=== PATIENT | female | born 1970 | race Caucasian/White ===

== ENCOUNTER 2023-07-08 12:48 | Outpatient (OUT) | payer OTHER, BC, SELFPAY ==
--- NOTE | 2023-07-08 12:50 | VEIN_ITS ---
Patient Name: LOREN WING MR#: [id number] : 1970 Exam Date: 07/08/2023 Ordering Doctor: DR MARTIN HERNANDEZ D.P.M. RADIOLOGY REPORT PROCEDURE: [facility] - OFFICE VISIT INITIAL COMPARISON: None. PROGRESS NOTES: 52-year-old female who presents with a 2 year history of lower extremity pain swelling and varicose veins culminated in an episode of a nonhealing ulceration determined to be a venous stasis ulcer by the wound clinic along the distal right lateral lower leg and ankle. The patient has had this wound since March of 2023 with very slow healing. The area continues to see. The patient has describes the pain as aching burning and itching rating the pain as a 7 on a scale of 1-10. The patient's right leg symptoms are significantly worse than the left. 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 The patient's symptoms are only partially relieved by rest, leg elevation over the counter oral analgesics. The patient has previously had treatments with intravenous laser ablation of both great saphenous veins The patient denies any signs and symptoms to suggest arterial ischemia. The patient describes a family history significant for heart disease in a maternal grandmother and paternal grandmother. . Occasional social alcohol use. The patient has never smoked. No illicit drug use. Past medical history is significant for a ventral hernia, hypertension, anxiety disorder. Past surgical history significant for left total knee replacement, , cholecystectomy. No history of deep venous thrombus or pulmonary embolus. See separate history and physical for medication list. Nursing notes were reviewed. The patient has worn compression stockings for several years. After history and physical exam I discussed at length the pathophysiology of venous hypertension and possible treatments, therapies and strategies available. We discussed at length the importance of elevating the lower extremities above the level of the heart, increased physical activity and compression stocking use. We discussed surgical alternatives including ligation and stripping and phlebectomy. We discussed intravenous laser ablation, micro foam chemical ablation and injection sclerotherapy lymph. Risks benefits and alternatives were discussed. The patient's questions were answered Ultrasound venous reflux study performed the same day was discussed at length with the patient. The report demonstrates moderate right small saphenous and anterior accessory saphenous vein venous insufficiency. Moderate to large bilateral incompetent perforating veins 1 associated with the active venous stasis ulceration. Bilateral incompetent varicose veins, right greater than left. PHYSICAL EXAM: The right leg demonstrates moderate scattered varicose reticular and spider veins. There is a 15 x 10 cm area of active ulceration partially scabbed with a small amount of seeping along the right distal lateral lower leg immediately over a large incompetent perforating vein. Mild subcutaneous edema. Mild hemosiderin staining. The left leg demonstrates mild scattered varicose reticular and spider veins. No subcutaneous edema. No hemosiderin staining. No active ulceration. Both thighs, legs and feet were symmetrically warm to the touch. Good posterior tibial and dorsalis pedis pulses were present bilaterally. VEIN/VC Facility NEW Comprehensive IMPRESSION: 1. Right small saphenous and anterior accessory saphenous vein venous insufficiency . Bilateral incompetent perforating veins 2. Moderate right and mild left lower extremity incompetent varicose veins 3. Mild right lower extremity subcutaneous edema 4. Active venous stasis ulceration right lateral leg 5. CEAP: C6, Ep, Asp, Pr PLAN: 1. Endovenous laser ablation right small saphenous vein followed by bilateral perforating veins followed by right anterior accessory saphenous vein 2. Bilateral micro foam chemical ablation of incompetent varicose veins 3. Injection sclerotherapy of reticular and spider veins 4. Long-term use of bilateral thigh-high 20-30 mm compression stockings 5. Elevated legs and increased physical activity for symptomatic relief Nurse notes, history and physical were reviewed and confirmed, see attached forms. The nurse was present throughout the physical exam and consultation Dictated by: Wilver Cano MD on 07/08/2023 at 14:50 Approved by: Wilver Cano MD on 07/08/2023 at 14:55
--- NOTE | 2023-07-08 12:50 | VEIN_ITS ---
Patient Name: LOREN WING MR#: [id number] : 1970 Exam Date: 07/08/2023 Ordering Doctor: DR MARTIN HERNANDEZ D.P.M. RADIOLOGY REPORT PROCEDURE: VC EXT VENOUS REFLUX DEENA LMTD COMPARISON: None. INDICATIONS: I83.813 Bilateral painful varicose veins TECHNIQUE: Duplex imaging of the lower extremity to assess the deep and superficial venous system for the presence of deep or superficial venous incompetence and to document the location and severity of disease. The study includes evaluation of the great saphenous vein (GSV), anterior accessory saphenous vein (AASV) and small saphenous vein (SSV). Patient scanned in reverse Trendelenburg and standing. FINDINGS: RIGHT LOWER EXTREMITY: Saphenofemoral Junction Reflux: Yes 10.9mm 1.0 sec GSV: Diam (mm) Reflux/ Time (sec) Proximal Thigh N/A Mid Thigh N/A Distal Thigh N/A Prox Calf N/A Mid Calf N/A Saphenopopliteal Junction Reflux: 5.8mm Yes 0.6 SSV: Proximal Calf 5.5 Yes 1.1 Mid Calf 4.1 Yes 0.5 AASV: Proximal Thigh 5.7 Yes 1.9 Mid Thigh 2.7 Yes 0.6 Distal Thigh Thrombi: No acute or chronic thrombus visualized Compressibility: Normal Flow: Normal Preforator: Dist/med calf 4.6mm with 0.6s reflux. Tech Note: Incompetent SSV. Patent varicose vein prox/med calf 4.9mm with 0.7s reflux. Patent varicose vein dist/med thigh 7.0mm with 1.0s reflux. Patent varicose vein mid/med thigh 6.1mm with 0.9s reflux. LEFT LOWER EXTREMITY: Saphenofemoral Junction Reflux: Yes 11.1 mm 1.5 sec GSV: Diam (mm) Reflux/Time (sec) Proximal Thigh 6.9 Yes 0.6 Mid Thigh N/A Distal Thigh N/A Prox Calf N/A Mid Calf N/A Saphenopopliteal Junction Relux: 3.3 mm SSV: Proximal Calf 2.4 No Mid Calf 2.2 Yes 0.4 AASV: Not present Thrombi: No acute or chronic thrombus visualized Compressibility: Normal Flow: Normal Proofer Apprentice: Dist/med calf 4.5mm with 0.7s reflux. Tech Note: Patent varicose vein prox/med calf 3.9mm with 2.0s reflux. CONCLUSION: 1. Moderate venous insufficiency right small saphenous and right anterior accessory saphenous veins 2. Bilateral incompetent perforating veins 3. Bilateral incompetent varicose veins Dictated by: Wilver Cano MD on 07/08/2023 at 14:16 Approved by: Wilver Cano MD on 07/08/2023 at 14:18
== END 2023-07-08 12:49 | disposition home or self-care (01) ==
PROVIDERS: PCP Podiatrist Foot & Ankle Surgery; Visit Provider Podiatrist Foot & Ankle Surgery
DX: I83.10 Varicose veins of unspecified lower extremity with inflammation (principal)
CPT/HCPCS: 93970; G0463

== ENCOUNTER 2023-08-04 07:23 | Outpatient (OUT) | payer OTHER, BC, SELFPAY ==
[2023-08-04] MEDS: 0.9 % SODIUM CHLORIDE 500 ML, LIDOCAINE HCL 20 ML, SODIUM BICARBONATE 10 MEQ INJ (07:34)
[2023-08-04] MEDS: LIDOCAINE HCL 1% 100 MG/10 ML MDV INJ (07:35)
--- NOTE | 2023-08-04 07:36 | VEIN_ITS ---
[address] [address] Patient Name: LOREN WING MRN: [id number] date: 1970 Sex: F Assigned Patient Location: Current Patient Location: Accession/Order Number: [id number] Exam Date: 08/04/2023 07:40 Report Date: 08/04/2023 11:55 At the request of: PREMA HAWKINS Procedure: VC Endovenous Ablation 1VeinRT EXAMINATION: VC Endovenous Ablation 1Vein, right small saphenous vein HISTORY: Pain due to varicose veins of bilateral legs I83.813 COMPARISON: No relevant comparison available. TECHNIQUE: The risks and benefits of the procedure had been previously discussed, and were rediscussed at length. Informed written consent was obtained. Cara Hernadez and Matteo Holloway assisted. Time out procedure was performed. The right lower extremity was prepared and draped in the usual sterile fashion. Duplex ultrasound probe was draped in a sterile cover, sterile transmission gel was used. Venous mapping was performed with the areas of dilation and large tributaries marked. The total length was 22 cm from the entry 7 cm above the lateral malleolus to where the vein begins to dive into the popliteal junction. The diameter of the small saphenous vein ranged from 5-6 mm. A 30 gauge needle and 1% buffered lidocaine was used to anesthetize the entry site. A 4 mm incision was made with a scalpel and the saphenous vein was entered percutaneously under direct ultrasound guidance with a micropuncture set, a single stick was successful in gaining access. A micro-guide wire was inserted and the needle removed. A micro-set including a dilator was inserted over the microwire and the needle and dilator were removed. A 0.018 guide wire was inserted through the micro-set and threaded through the saphenous vein. The dilator was removed and an introducer sheath was inserted over the wire until. The dilator and wire were removed and the 600 micron fiber was introduced and placed and positioned so that it extended beyond the sheath. Final position of the fiber was determined by ultrasound guidance and duplex imaging. Tumescent anesthetic was delivered by ultrasound guidance. 100 cc of fluid was delivered along the entire course of the saphenous vein. The solution consisted of 1000 cc of normal saline with 40 mL of 1% lidocaine and 20 mL of sodium bicarbonate. A final positioning check was made. The energy source was turned on by means of the foot pedal and the fiber and sheath were withdrawn. The total number of Joules delivered was 1049. The laser was active for 131 seconds under continuous pulse, average laser use of 8 J. Laser start time 8:02 AM 08/04/23 . Laser stop time 8:10 AM 08/04/23 . A duplex ultrasound revealed compressibility and flow at the saphenofemoral junction immediately after the procedure. Hemostasis at the access site was achieved. The skin incision of the saphenous vein was closed with a 4 x 4. A compression stocking was applied. Postop instructions were given. A follow up appointment was recommended and scheduled. The patient tolerated the procedure well and was discharged in good condition . VEIN/VC Endovenous Ablation 1VeinRT IMPRESSION: Technically successful endovenous laser ablation of the right small saphenous vein Electronically authenticated by: PREMA HAWKINS Date: 08/04/2023 11:55
--- OUTSIDE RECORDS SUMMARY | 2023-08-04 07:37 | XMS_ITS | CCD ---
Author Name Unknown Address [address] [place] [address] Organization [facility] Care Team Providers Care Support Coordinator Name Role Phone Pb BAUMAN Primary Care Physician Unavailable Primary Care Provider Unavailabl e Unavailable Primary Care Provider Unavailabl e MARKO CORDOVA Attending Unavailable MARKO CORDOVA Referring Unavailable PEREIRAAUGUSTUS DALLAS Attending Unavailable AUGUSTUS PEREIRA Referring Unavailable Pb BAUMAN Primary Care Physician DIANA CEJA Primary Care Physician [phone] Keith CHUNG Attending Unavailable ANA CHÁVEZ Attending Unavailable BAY CEJAC DIANA Grady Attending Unav ailable ANA CHÁVEZ Attending Unavailable Rita Dover FJohn Admitting Unavailable Stanislaw, Rita FJohn Attending Unavailable Stanislaw, Mohamed FJohn Referring Unavailable SALAMIsiaher Admitting Unavailable VERONICAAMKeith Attending Unavailable VERONICAAMIsiaher Referring Unavailable Sri PUGA Admitting Unavailable Sri PUGA Attending Unavailable Sri PUGA Referring Unavailable Everardo Perera Attending Unavailable REFERRAL, SELF Referring Unavailable Everardo Davis Attending Unavailable Stanislaw, Mohamed FJohn Admitting Unavailable Stanislaw, Mohamed FJohn Attending Unavailable NONE, XXXX Referring Unavailable Sri PUGA Attending Unavailable Kimmy Scott X Attending Unavailable Morena Rousseau Attending Unavailable Morena Rousseau Attending Unavailable Allergies Allergy Classification Reported Allergen(s) Allergy Type Date of Onset Reaction(s) Facility (17 sources) seasonal ,dust, mold 1 Allergy to substance hayfever [facility] Comment on above: hayfever (1 source) Seasonal allergy Allergy to substance 3 Itching [facility] (1 source) seasonal ,dust, mold; Translations: [seasonal ,dust, mold] Propensity to adverse reactions (disorder) [facility] (1 source) No Known Medication Allergies; Translations: [No Known Medication Allergies] Propensity to adverse reactions (disorder) [facility] NEGATED: Highlighted row has been ruled out! (1 source) Drug allergy [facility] NEGATED: Highlighted row has been ruled out! (1 source) Drug allergy [facility] NEGATED: Highlighted row has been ruled out! (1 source) Drug allergy [facility] NEGATED: Highlighted row has been ruled out! (1 source) Drug allergy [facility] NEGATED: Highlighted row has been ruled out! (1 source) Drug allergy [facility] NEGATED: Highlighted row has been ruled out! (1 source) Drug allergy [facility] NEGATED: Highlighted row has been ruled out! (1 source) Drug allergy [facility] NEGATED: Highlighted row has been ruled out! (1 source) Drug allergy [facility] NEGATED: Highlighted row has been ruled out! (1 source) Drug allergy [facility] NEGATED: Highlighted row has been ruled out! (1 source) Drug allergy [facility] NEGATED: Highlighted row has been ruled out! (1 source) Drug allergy [facility] Medications Current Medications Medication Drug Class(es) Dates Sig (Normalized) Sig (Original) albuterol HFA 90 mcg/inh MDI (17 sources) Start: 06-27-2023 take 2 puff(s) by inhalation four times daily albuterol HFA 90 mcg/inh MDI 2 puff(s), Inhalation, QID, 1 EA, Refill(s) 2, [facility], [facility], cm, 06/27/23 10:33:00 EST, Height/Length Dosing, 111, kg, 06/27/23 10:33:00 EST, Weight Dosing Start Date: 06/27/23 Status: Ordered Start: 05-25-2020 take 2 puff(s) by in halation four times daily albuterol HFA 90 mcg/inh MDI 2 puff(s), Inhalation, QID, 1 EA, Refill(s) 2, [facility], 167, cm, 05/25/20 16:49:00 EST, Height/Length Dosing, 112.5, kg, 05/25/20 16:49:00 EST, Weight Dosing Start Date: 05/25/20 Status: Ordered azithromycin 250 mg oral tablet (1 source) Macrolide Antimicrobial Start: 06-27-2023 End: 07-02-2023 Zithromax Z-Mars 250 mg oral tablet 250 mg = 1 tab(s), Oral, As Directed, as directed on package labeling, X 5 day(s), # 6 tab(s), Refills(s) 0, Pharmacy: [facility], 167, cm, 06/27/23 10:33:00 EST, Height/Length Dosing, 111, kg, 06/27/23 10:33:00 EST, Weight Dosing Start Date: 06/27/23 Stop Date: 07/02/23 Status: Ordered brompheniramine maleate 0.4 mg/ml / dextromethorphan hydrobromide 2 mg/ml / pseudoephedrine hydrochloride 6 mg/ml oral solution (2 sources) alpha-Adrenergic Agonist, Uncompetitive Z-vatoxs-I-aspart ate Receptor Antagonist, Sigma-1 Agonist Start: 06-27-2023 take 2.5 mL by mouth every six hours Bromfed DM oral syrup 2.5 mL, Oral, q6hr for cold symptoms, 120 mL, Refill(s) 1, [facility], 167, cm, 06/27/23 10:33:00 EST, Height/Length Dosing, 111, kg, 06/27/23 10:33:00 EST, Weight Dosing Start Date: 06/27/23 Status: Ordered hydrALAZINE hydrochloride 10 mg oral tablet (1 source) Arteriolar Vasodilator Start: 07-04-2023 hydrALAZINE 10 mg Tab See Instructions, 1 tab PO PRN BP >140/90, # 30 tab(s), Refills(s) 2, Pharmacy: [facility], 167, cm, 06/27/23 10:33:00 EST, Height/Length Dosing, 111, kg, 06/27/23 10:33:00 EST, Weight Dosing Start Date: 07/04/23 Status: Ordered hydroCHLOROthiazide 12.5 mg oral capsule (4 sources) Thiazide Diuretic Start: 06-27-2023 take 1 capsule by mouth once daily hydrochlorothiazide 12.5 mg Cap 12.5 mg = 1 cap(s), Oral, Daily, # 30 cap(s), Refills(s) 6, Pharmacy: [facility], 167, cm, 06/27/23 10:33:00 EST, Height/Length Dosing, 111, kg, 06/27/23 10:33:00 EST, Weight Dosing Start Date: 06/27/23 Status: Ordered Start: 09-28-2020 hydroCHLOROthi azide (HYDRODIURIL, ESIDRIX) 12.5 mg tablet Take 12.5 mg by mouth. 0 09/28/2020 Active Comment on above: Take 12.5 mg by mout h. methylPREDNISolone 4 mg oral tablet (1 source) Corticosteroid Start: End: Medrol 4 mg Tab = 1 packet(s), Oral, As Directed, as directed on package labeling, X 6 day(s), # 21 tab(s), Refills(s) 0, Pharmacy: [facility], 167, cm, 06/27/23 10:33:00 EST, Height/Length Dosing, 111, kg, 06/27/23 10:33:00 EST, Weight Dosing Start Date: 06/27/23 Stop Date: 07/03/23 Status: Ordered omeprazole 40 mg delayed release oral capsule (12 sources) Proton Pump Inhibitor Start: take 1 capsule by mouth once daily omeprazole 40 mg Cap-DR 40 mg = 1 cap(s), Oral, Daily, # 30 cap(s), Refills(s) 1, Pharmacy: [facility], 167, cm, 02/05/23 12:12:00 EDT, Height/Length Dosing, 106.5, kg, 02/05/23 12:12:00 EDT, Weight Dosing Start Date: 02/05/23 Status: Ordered Start: 01-20-2023 take 1 capsule by mo uth once daily omeprazole 20 mg Cap-DR 20 mg = 1 cap(s), Oral, Daily, # 90 cap(s), Refills(s) 3, Pharmacy: [facility], 167, cm, 12/18/22 9:30:00 EDT, Height/Length Dosing, 106.5, kg, 12/18/22 9:30:00 EDT, Weight Dosing Start Date: 01/20/23 Status: Ordered Start: 10-25-2022 take 1 capsule by [facility] once daily omeprazole 20 mg Cap-DR 20 mg = 1 cap(s), Oral, Daily, # 30 cap(s), Refills(s) 0, Pharmacy: [facility], 167, cm, 10/25/22 14:36:00 EDT, Height/Length Dosing, 110.1, kg, 10/25/22 14:36:00 EDT, Weight Dosing Start Date: 10/25/22 Status: Ordered polyethylene glycol 3350 [id number] mg / potassium chloride 1480 mg / sodium bicarbonate 5720 mg / sodium chloride 03243 mg powder for oral solution (1 source) Osmotic Laxative Start: 12-18-2022 NuLYTELY Ford oral powder for reconstitution See Instructions, 1 EA, Refill(s) 0, See physician instructions prior to procedure., [facility], 167, cm, 12/18/22 9:30:00 EDT, Height/Length Dosing, 106.5, kg, 12/18/22 9:30:00 EDT, Weight Dosing Start Date: 12/18/22 Status: Ordered pseudoephedrine hydrochloride 30 mg oral tablet (1 source) alpha-Adrenerg ic Agonist Start: 11-07-2021 End: 12-05-2021 take 1 tablet by mouth twice daily pseudoephedrine 30 mg Tab 30 mg = 1 tab(s), Oral, BID, X 14 day(s), # 28 tab(s), Refills(s) 1, Pharmacy: [facility], 167, cm, 11/06/21 13:58:00 EDT, Height/Length Dosing, 91.5, kg, 11/06/21 13:58:00 EDT, Weight Dosing Start Date: 11/07/21 Stop Date: 12/05/21 Status: Ordered Sensor 60 ACTUAT fluticasone propionate 0.232 MG/ACTUAT Dry Powder Inhaler [Armonair] (9 sources) Start: 06-27-2023 take 232 ug by mouth every twelve hours fluticasone propionate 232 mcg/inh inhalation powder 232 mcg, Inhalation, q12hr, Swallowed rather than inhaled rinse mouth and throat after use, # 1 EA, Refills(s) 5, Pharmacy: [facility], 167, cm, 06/27/23 10:33:00 EST, Height/Length Dosing, 111, kg, 06/27/23 10:33:00 EST, Weight Dosing Start Date: 06/27/23 Status: Ordered Start: 10-25-2022 take 232 ug by mouth every twelve hours fluticasone propionate 232 mcg/inh inhalation powder 232 mcg, Inhalation, q12hr, Swallowed rather than inhaled rinse mouth and throat after use, # 1 EA, Refills(s) 5, Pharmacy: [facility], 167, cm, 10/25/22 14:36:00 EDT, Height/Length Dosing, 110.1, kg, 10/25/22 14:36:00 EDT, Weight Dosing Start Date: 10/25/22 Status: Ordered sertraline 50 mg oral tablet (19 sources) Serotonin Reuptake Inhibitor Start: 01-20-2023 Zoloft 50 mg Tab 75 mg = 1.5 tab(s), Oral, Daily, # 135 tab(s), Refills(s) 3, Pharmacy: [facility], 167, cm, 06/27/23 10:33:00 EST, Height/Length Dosing, 111, kg, 06/27/23 10:33:00 EST, Weight Dosing Start Date: 06/27/23 Status: Ordered Start: 01-09-2022 Zoloft 50 mg T ab 75 mg = 1.5 tab(s), Oral, Daily, # 135 tab(s), Refills(s) 2, Pharmacy: [facility], 167, cm, 11/06/21 13:58:00 EDT, Height/Length Dosing, 91.5, kg, 11/06/21 13:58:00 EDT, Weight Dosing Start Date: 01/09/22 Status: Ordered Start: 12-28-2020 Zoloft 50 mg T ab 75 mg = 1.5 tab(s), Oral, Daily, # 135 tab(s), Refills(s) 2, Pharmacy: [facility], 167.6, cm, 12/22/20 12:51:00 EDT, Height/Length Dosing, 95, kg, 12/22/20 12:51:00 EDT, Weight Dosing Start Date: 12/28/20 Status: Ordered Start: 10-13-2020 take 1 tablet by carmelo th once daily sertraline (ZOLOFT) 50 mg tablet TAKE 1 & 1 2 (ONE & ONE HALF) TABLETS BY MOUTH ONCE DAILY 0 10/13/2020 Active Comment on above: TAKE 1 & 1 2 (ONE & ONE HALF) TABLETS BY MOUTH ONCE DAILY Completed/Discontinued Medications Medication Drug Class(es) Dates Sig (Normalized) Sig (Original) aspirin 81 mg delayed release oral tablet (2 sources) Platelet Aggregation Inhibitor, Nonsteroidal Anti-inflammatory Drug Start: 12-21-2020 take 1 tablet by mouth twice daily aspirin, enteric coated (ECOTRIN LOW STRENGTH) 81 mg EC tablet Take 1 tablet by mouth twice daily. 60 tablet 0 12/21/2020 Active Comment on above: Take 1 tablet by carmelo twice daily. betamethasone 3 mg/ml / betamethasone acetate 3 mg/ml injectable suspension (1 source) Corticosteroid Start: 12-25-2022 End: 12-25-2022 betamethasone acetate-betamethas one sodium phosphate 12 mg injection (CELESTONE) Start: 12-25-2022 End: 12-25-2022 betamethasone acetate-betame thasone sodium phosphate 12 mg injection (CELESTONE) 60 actuat formoterol fumarate 0.005 mg/actuat / mometasone furoate 0.1 mg/actuat metered dose inhaler (2 sources) Corticosteroid, beta2-Adrenergic Agonist Start: 11-04-2016 take 2 puff(s) by inhalation twice daily mometasone-formoterol (DULERA) 100-5 mcg/actuation inhaler Inhale 2 Puffs as instructed twice daily. 0 11/04/2016 Active Comment on above: Inhale 2 Puffs as in structed twice daily. hydroCHLOROthiazide 25 mg / lisinopril 20 mg oral tablet (2 sources) Thiazide Diuretic, Angiotensin Converting Enzyme Inhibitor take 1 tablet by mouth once daily lisinopril-hydrochloro thiazide (PRINZIDE, ZESTORETIC) 20-25 mg per tablet Take 1 tablet by mouth once daily. 0 Active Comment on above: Take 1 tablet by carmelo th once daily. 10 ml lidocaine hydrochloride 10 mg/ml injection (1 source) Antiarrhythmic, Amide Local Anesthetic Start: 12-25-2022 End: 12-25-2022 lidocaine (PF) 10 mg/mL (1 %) 5 mL injection (XYLOCAINE) Start: 12-25-2022 End: 12-25-2022 lidocaine (PF) 10 mg/mL (1 % ) 5 mL injection (XYLOCAINE) lisinopril 10 mg oral tablet (20 sources) Angiotensin Converting Enzyme Inhibitor Start: 10-30-2020 End: 06-26-2023 take 1 tablet by mouth once lisinopril 10 mg Tab 10 mg = 1 tab(s), Tab, Oral, Once, Stop date 06/26/23 8:18:02 PM EST, STAT, Start date 06/26/23 7:41:00 PM EST, 06/26/23 19:41:00 EST Start Date: 06/26/23 Stop Date: 06/26/23 Status: Completed Comment on above: Take 10 mg by mouth once daily. pantoprazole 20 mg delayed release oral tablet (2 sources) Proton Pump Inhibitor Start: 12-21-2020 take 1 tablet by mouth once daily pantoprazole DR (PROTONIX) 20 mg tablet Take 1 tablet by mouth once daily for 14 days. 14 tablet 0 12/21/2020 Active Comment on above: Take 1 tablet by carmelo th once daily for 14 days. Problems Active Problems Problem Classification Problem Date Documented Da te Episodic/Chronic Abdominal hernia (17 sources) Ventral incisional hernia 09-17-2013 Episodic Anxiety disorders (17 sources) Anxiety 08-04-2015 Chronic Asthma (2 sources) Asthma; Translations: [Unspecified asthma, uncomplicated] 12-20-2020 Chronic Chronic obstructive pulmonary disease and bronchiectasis (3 sources) Bronchitis; Translations: [Bronchitis, not specified as acute or chronic] Onset: 06-27-2023 Episodic Chronic ulcer of skin (1 source) Chronic ulcer of skin of lower leg; Translations: [Non-pressure chronic ulcer of unspecified part of unspecified lower leg with unspecified severity] Onset: 05-16-2022 Chronic Conduction disorders (3 sources) Left bundle branch block; Translations: [Left bundle-branch block, unspecified] Onset: 06-27-2023 Chronic Deficiency and other anemia (18 sources) Anemia; Translations: [Anemia, unspecified] Onset: 11-06-2021 Episodic Deficiency and other anemia (17 sources) Normocytic anemia 11-06-2021 Episodic Diverticulosis and diverticulitis (7 sources) Diverticula of intestine; Translations: [Diverticulosis of intestine, part unspecified, without perforation or abscess without bleeding] Onset: 03-05-2023 Chronic Esophageal disorders (8 sources) Obstruction of esophagus; Translations: [Esophageal obstruction] Onset: 02-05-2023 Chronic Essential hypertension (20 sources) Hypertensive disorder; Translations: [Essential (primary) hypertension] Onset: 11-30-2020 08-04-2015 Chronic Gastroduodenal ulcer (except hemorrhage) (7 sources) Gastric ulcer; Translations: [Gastric ulcer, unspecified as acute or chronic, without hemorrhage or perforation] Onset: 03-05-2023 Chronic Genitourinary congenital anomalies (2 sources) Renal agenesis; Translations: [Renal agenesis, unilateral] 12-05-2020 Chronic Headache; including migraine (1 source) Headache; Translations: [Headache, unspecified] Onset: 06-26-2023 Episodic Hemorrhoids (7 sources) Hemorrhoids; Translations: [Unspecified hemorrhoids] Onset: 03-05-2023 Episodic Joint disorders and dislocations; trauma-related (2 sources) Patellofemoral syndrome of left knee; Translations: [Patellofemoral disorders, left knee] Onset: 02-09-2016 02-09-2016 Chronic Joint disorders and dislocations; trauma-related (17 sources) Tear of medial meniscus of knee 08-04-2015 Episodic Comment on above: left Lymphadenitis (17 sources) Tender lymph node 11-06-2021 Episodic Osteoarthritis (20 sources) Osteoarthritis; Translations: [Osteoarthritis of left knee joint] Onset: 02-09-2016 08-04-2015 Chronic Comment on above: left knee Other circulatory disease (1 source) Disorder of respiratory system; Translations: [Other specified symptoms and signs involving the circulatory and respiratory systems] Onset: 11-06-2021 Episodic Other circulatory disease (17 sources) Vascular insufficiency 05-13-2019 Episodic Other connective tissue disease (1 source) Artificial knee joint present; Translations: [Presence of left artificial knee joint] Onset: 11-06-2021 Chronic Other connective tissue disease (4 sources) History of revision of left total knee arthroplasty; Translations: [Presence of left artificial knee joint] Onset: 12-20-2020 Chronic Other connective tissue disease (2 sources) History of total knee arthroplasty; Translations: [Presence of left artificial knee joint] Onset: 11-18-2016 11-18-2016 Chronic Other connective tissue disease (1 source) Presence of left artificial knee joint; Translations: [S/P revision of total knee, left] Onset: 12-20-2020 Chronic Other diseases of veins and lymphatics (2 sources) Varicose eczema 06-27-2023 Episodic Other gastrointestinal disorders (10 sources) Heartburn; Translations: [Heartburn] Onset: 12-18-2022 Episodic Other gastrointestinal disorders (9 sources) Dysphagia; Translations: [Dysphagia, unspecified] Onset: 12-18-2022 Episodic Other hematologic conditions (17 sources) Microcytosis 11-06-2021 Episodic Other lower respiratory disease (1 source) Dyspnea; Translations: [Shortness of breath] Onset: 06-27-2023 Episodic Other nutritional; endocrine; and metabolic disorders (1 source) Obese class I; Translations: [Body mass index (BMI) 32.0-32.9, adult] Onset: 11-06-2021 Chronic Other nutritional; endocrine; and metabolic disorders (2 sources) Obesity; Translations: [Obesity, unspecified] 11-18-2016 Chronic Other nutritional; endocrine; and metabolic disorders (4 sources) Obese class II; Translations: [Obesity, unspecified] Onset: 12-20-2020 12-20-2020 Chronic Other screening for suspected conditions (not mental disorders or infectious disease) (3 sources) Screening for malignant neoplasm of colon done; Translations: [Encounter for screening for malignant neoplasm of colon] Onset: 12-18-2022 Episodic Other upper respiratory disease (18 sources) Allergic rhinitis; Translations: [Allergic rhinitis, unspecified] Onset: 11-06-2021 Chronic Pneumonia (except that caused by tuberculosis or sexually transmitted disease) (17 sources) Bacterial pneumonia 09-17-2013 Episodic Residual codes; unclassified (1 source) Pain, unspecified; Translations: [Pain] Onset: 12-25-2022 Episodic Unclassified (17 sources) Non-smoker 10-11-2019 Unclassified (20 sources) Patient encounter status 05-25-2020 Varicose veins of lower extremity (3 sources) Varicose ulcer of lower extremity; Translations: [Varicose veins of unspecified lower extremity with ulcer of unspecified site] Onset: 05-16-2022 Episodic Past or Other Problems Problem Classification Problem Date Documented Date Episodic/Chronic Other connective tissue disease (2 sources) Right sided abdominal pain; Translations: [Myalgia, other site] Onset: 04-30-2012 04-30-2012 Episodic Residual codes; unclassified (1 source) History of hernia repair; Translations: [Other specified postprocedural states] Onset: 01-27-2012 01-27-2012 Episodic Unclassified (17 sources) None (qualifier value) 10-03-2010 Results Test Name Value Interpretation Reference Range Facil ity ED Note-Physicianon 06-27-20 ED Note-Physician Basic Information Time Seen: Julio C COOK, Justin Williamson 06/26/2023 18:35 Chief Complaint pt c\o headache and high blood pressure x1 day History of Present Illness A 52-year-old female reports to the emergency department with a chief complaint of a headache, and high blood pressure. Reports been going on for at least a day now. States that she is on lisinopril for blood pressure. Denies any blood thinners. Reports it was gradual headache, but has been very bad headache. States that she does have a history of migraines as well. Has not take anything for her pain. Denies any nausea or vomiting. Denies any visual changes. Denies any chest pain or shortness of breath. Review of Systems A 10 point review of systems is negative except as noted above. Medical and Surgical History: Reviewed and noted Social history: Lives at home Family History: Reviewed. Tobacco: Denies Physical Exam Vitals & Measurements T: 36.8 ?C(Oral) HR: 98(Monitored) RR: 18 BP: 166/104 SpO2: 97% HT: 167 cm WT: 110 kg BMI: 39.44 General: The patient appears well and in no apparent distress. Patient is resting comfortably on bed. Afebrile Skin: Warm, dry, no pallor noted. Head: Normocephalic, atraumatic Neck: No JVD Eye: PERRLA, EOMI ENT: Moist mucus membranes Cardiovascular: Regular rate normal peripheral perfusion. Radial pulse +2 bilaterally Respiratory: No respiratory distress no accessory muscle use no obvious audible wheezing Chest Wall: no deformity Musculoskeletal: normal ROM, no deformity, no swelling GI: No obvious distention soft nontender nondistended no guarding rebounding or rigidity Neurological: A&O moves all extremities equal strength and symmetry. No focal neurological defects. Psychiatric: Cooperative and appropriate Medical Decision Making MEDICAL DECISION MAKING Number and Complexity of Problems Differential Diagnosis: [] [facility] Data External documents reviewed: [] My EKG interpretation: Reviewed My CT interpretation: Reviewed My X-ray interpretation: Reviewed My Ultrasound interpretation: [] Decision rules/scores evaluated: [] Discussed with: [] Treatment and Disposition ED Course: 52-year-old female reports emerged department chief complaint of headache as well as high blood pressure reading. States that she did have a headache, is very bad. Reports worst of her life. Denies any other symptoms. Denies any visual changes, chest pain or shortness of breath. Physical exam the patient is otherwise benign. No focal neurological defects. Due to her concerns, as well as her complaints, I did do a cardiac workup with a head CT. Her initial pressure here in the emergency department was 201/135. Lab reviewed and noted. No acute changes seen. CT of the head was negative. Discussed with the patient. Patient was given Tylenol as well as a migraine cocktail here in the emergency department, she did greatly improve her symptoms. I also did double the dose of her lisinopril, she is to take 20 mg a day now. Patient was given 10 mg here. Patient symptoms greatly improved. Discussed follow-up with PCP. Follow-up with your primary care provider in 3 to 5 days. If symptoms worsen, do not improve, or new symptoms arise please report back to emergency department for further evaluation. The patient was understanding and agreeable to plan moving forward. Shared decision making: [] Code status: [] Assessment/Plan Head ache (R51.9: Headache, unspecified) Hypertension (I10: Essential (primary) hypertension) Orders: acetaminophen, 650 mg = 2 tab(s), Tab, Oral, Once, Stop date 06/26/23 18:55:00 EST, STAT, Start date 06/26/23 18:55:00 EST, 06/26/23 18:55:00 EST diphenhydrAMINE, 50 mg = 2 cap(s), Cap, Oral, Once, Stop date 06/26/23 19:45:00 EST, STAT, Start date 06/26/23 19:45:00 EST, 06/26/23 19:45:00 EST ketorolac, 60 mg = 2 mL, Injection, IntraMuscular, Once, Stop date 06/26/23 19:45:00 EST, STAT, Start date 06/26/23 19:45:00 EST, 06/26/23 19:45:00 EST lisinopril, 10 mg = 1 tab(s), Tab, Oral, Once, Stop date 06/26/23 19:41:00 EST, STAT, Start date 06/26/23 19:41:00 EST, 06/26/23 19:41:00 EST metoclopramide, 10 mg = 2 tab(s), Tab, Oral, Once, Stop date 06/26/23 19:45:00 EST, STAT, Start date 06/26/23 19:45:00 EST, 06/26/23 19:45:00 EST Automated Diff Basic Metabolic Panel CBC w/ Auto Diff CT Head or Brain w/o Contrast eGFR Extra SST Tube PT & PTT Troponin 0 Hr. XR Chest Single View Medications Administered Given diphenhydrAMINE 25 mg Cap, 50 mg, Oral ketorolac 60 mg/2 mL Injection, 60 mg, IntraMuscular lisinopril 10 mg Tab, 10 mg, Oral Reglan 5 mg Tab, 10 mg, Oral Tylenol 325 mg Tab, 650 mg, Oral Disposition Plan Patient Discharge Condition Stable Discharge Disposition To home Discharge Prescription List Prescriptions No active prescription medications Follow-up With When Contact Information Pb MERNA In 3 days 06/29/[address] [facility] (more content not included)... Normal [facility] Comment on above: Result Comment: Elec tronically Signed By: Julio C COOK, Justin Williamson\.miki\Date and Time Signed: 06/26/23 21:21 EST\.br\Electronically Co-Signed By: Everardo Perera DO\.miki\Date and Time Co-Signed: 06/27/23 08:01 EST Family Medicine Office/Clini c Noteon 06-27-2023 Family Medicine Office/Clinic Note HPI Staff Pt presents for BP issues and coughing/wheezing previous pt of Dr. Bauman IZABELA 11/22/22 1 month f/u dysphagia *Sees GI CT of head and chest XR 06/27/23 _Respiratory C/O: Covid Home Test: no Sore Throat- no Duration: _ started 3 days ago Body aches: yes Chest congestion: yes a little but not a lot just wheezy Chills: no Cough: no Ear complaints: no Eye itching/watering: no Fever: no Headache: no Nasal congestion: no Nasal discharge: no Poor appetite: no Reduced activity: yes Sinus pain/pressure: no Sneezing: no Sputum production: no Wheezing: yes Ill contacts: no Remedies tried: _ _ _ albuterol this morning didn't seem to help much ER followup: Hospital: [facility] Visit date: 06/27/23 Symptoms the patient presented with: high bp- went to wound clinic yesterday and BP was high encouraged pt to go to [facility], at urgent Care they took BP and sent pt to the ER Current concerns: Patient is here for follow up on hypertension. How often are you checking your blood pressure? Doesnt check BP at home What are your average readings? N/A, Not checking at home Do you have any of the following symptoms? Chest Pain? no Palpitations? no VALLES/SOB? yes - sick today Headache? yes Peripheral Edema? no Light Headedness? no Yearly BMP: _ BUN: 12 mg/dL (06/26/23 19:00:00) Calcium Lvl: 8.6 mg/dL Low (06/26/23 19:00:00) Chloride: 109 mmol/L (06/26/23 19:00:00) CO2: 26 mmol/L (06/26/23 19:00:00) Creatinine: 0.9 mg/dL (06/26/23 19:00:00) eGFR: >60 (06/26/23 19:00:00) Glucose Lvl: 104 mg/dL (06/26/23 19:00:00) Potassium Lvl: 3.9 mmol/L (06/26/23 19:00:00) Sodium Lvl: 142 mmol/L (06/26/23 19:00:00) Refill needed?: no History of Present Illness Jessenia is a 52 year old female who presents with exacerbation bronchitis. She has a nebulizer at home and has not yet used it. She used her rescue inhaler this morning which was mildly effective for SOB and wheeze. She has audible wheezes at rest. She was at the wound care clinic yesterday due to right lower leg ulcers and was found to have an elevated BP. She went to the ER - notes reviewed. She was only treated for a migraine at the ER - and treatment was effective, however, no changes were made to BP medications. It was noted on the EKG she has a left bundle branch block that she was unaware of. 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 She has had various treatments per vascular, and she is scheduled to see someone in July. The right lower extremity swells after prolonged standing. Review of Systems PHQ Score Initial Depression Screen Score: 0 SCORE Physical Exam Vitals & Measurements T: 36.6 ?C(Temporal Artery) HR: 77(Peripheral) RR: 24 BP: 130/96 SpO2: 98% HT: 66 in HT: 167 cm WT: 111 kg WT: 244.2 lb BMI: 39.8 General: alert, no acute distress Skin: warm, dry ... right lower extremity: erythematous, open areas - superficial. Mild non pitting edema. No drainage noted. Head: no trauma, normocephalic Neck: Trachea midline, no adenopathy, no tenderness Eye: normal conjunctiva, sclera clear ENMT: TM's clear, oral mucosa moist, no pharyngeal erythema or exudate Cardiovascular: regular rate and rhythm, normal peripheral perfusion Respiratory: Lungs expiratory wheezes, respirations labored Chest wall: no deformity. Gastrointestinal: soft, non distended, no tenderness, no guarding. Back: No tenderness, Normal ROM, Normal alignment. Extremities: no deformity, no trauma Neurological: oriented x 4, LOC appropriate for age, CN II-XII intact, motor strength equal & normal bilaterally, sensation equal & normal bilaterally, speech normal Psychiatric: cooperative, affect appropriate for age, normal judgement, normal psychiatric thoughts. Assessment/Plan 1. SOB (shortness of breath) (R06.02: Shortness of breath) Use nebulizer as prescribed Refill provided on inhalers Go to ER for sats < 89% or with severe SOB Instructed to obtain spo2 monitor Consider referral to pulm/PFT's Ordered: azithromycin, 250 mg = 1 tab(s), Oral, As Directed, as directed on package labeling, X 5 day(s), # 6 tab(s), Refills(s) 0, Pharmacy: [facility], 167, cm, 06/27/23 10:33:00 EST, Height/Length Dosing, 111, kg, 06/27/23 10:33:00 EST, Weight Dosing brompheniramine/dext romethorphan/PSE, 2.5 mL, Oral, q6hr for cold symptoms, 120 mL, Refill(s) 1, [facility], 167, cm, 06/27/23 10:33:00 EST, Height/Length Dosing, 111, kg, 06/27/23 10:33:00 EST, Weight Dosing hydrochlorothiazide, 12.5 mg = 1 cap(s), Oral, Daily, # 30 cap(s), Refills(s) 6, Pharmacy: [facility], 167, cm, 06/27/23 10:33:00 EST, Height/Length Dosing, 111, kg, 06/27/23 10:33:00 EST, Weight Dosing methylPREDNISolone, = 1 packet(s), Oral, As Directed, as directed on package labeling, X 6 day(s), # 21 tab(s), Refills(s) 0, Pharmacy: [facility] 1985, 167, cm, 06/27/23 10:33:00 EST, (more content not included)... [facility] Comment on above: Result Comment: Elec tronically Signed By: DIANA MOYER.br\Date and Time Signed: 06/27/23 12:02 EST Insurance Correspondenceon 1 08-28-2022 Insurance Correspondence [id number] 0#1.00TIFF [facility] Nursing Note - Woundon 06-27 Nursing Note - Wound [id number] 9#2.00TIFF [facility] Patient Educationon 06-27-20 Patient Education Cardiovascular Left Bundle Branch Block Left bundle branch block (LBBB) is a problem with the way that electrical impulses pass through the heart (electrical conduction abnormality). The heart depends on an electrical pulse to beat normally. The electrical signal for a heartbeat starts in the upper chambers of the heart (atria) and then travels to the two lower chambers (left and rightventricles). An LBBB is a partial or complete block of the pathway that carries the signal to the left ventricle. If you have LBBB, the left side of your heart does not beat normally. LBBB may be a warning sign of heart disease. What are the causes? This condition may be caused by: ? Heart disease. ? Disease of the arteries in the heart (arteriosclerosis). ? Stiffening or weakening of heart muscle (cardiomyopathy). ? Infection of heart muscle (myocarditis). ? High blood pressure. In some cases, the cause may not be known. What increases the risk? The following factors may make you more likely to develop this condition: ? Being male. ? Being 50 years of age or older. ? Having heart disease. ? Having had a heart attack or heart surgery. What are the signs or symptoms? This condition may not cause any symptoms. If you do have symptoms, they may include: ? Feeling dizzy or light-headed. ? Fainting. How is this diagnosed? This condition may be diagnosed based on an electrocardiogram (ECG). It is often diagnosed when an ECG is done as part of a routine physical or to help find the cause of fainting spells. You may also have imaging tests to find out more about your condition. These may include: ? Chest X-rays. ? Echocardiogram. How is this treated? If you do not have symptoms or any other type of heart disease, you may not need treatment for this condition. However, you may need to see your health care provider more often because LBBB can be a warning sign of future heart problems. You may get treatment for other heart problems or high blood pressure. If LBBB causes symptoms or other heart problems, you may need to have an electrical device (pacemaker) implanted under the skin of your chest. A pacemaker sends electrical signals to your heart to keep it beating normally. Follow these instructions at home: Lifestyle ? Follow instructions from your health care provider about eating or drinking restrictions. ? Follow a heart-healthy diet and maintain a healthy weight. Work with a dietitian to create an eating plan that is best for you. ? Do not use any products that contain nicotine or tobacco, such as cigarettes, e-cigarettes, and chewing tobacco. If you need help quitting, ask your health care provider. Activity ? Get regular exercise as told by your health care provider. ? Return to your normal activities as told by your health care provider. Ask your health care provider what activities are safe for you. General instructions ? Take xtvd-yao-getrzkn and prescription medicines only as told by your health care provider. ? Keep all follow-up visits as told by your health care provider. This is important. Contact a health care provider if: ? You feel light-headed. ? You faint. Get help right away if: ? You have chest pain. ? You have trouble breathing. These symptoms may represent a serious problem that is an emergency. Do not wait to see if the symptoms will go away. Get medical help right away. Call your local emergency services (911 in the [place] Do not drive yourself to the hospital. Summary ? For the heart to beat normally, an electrical signal must travel to the lower left chamber of the heart. Left bundle branch block (LBBB) is a partial or complete block of the pathway that carries that signal. ? This condition may not cause any symptoms. In some cases, a person may feel dizzy or light-headed or may faint. ? Treatment may not be needed for LBBB if you do not have symptoms or any other type of heart disease. ? You may need to see your health care provider more often because LBBB can be a warning sign of future heart problems. This information is not intended to replace advice given to you by your health care provider. Make sure you discuss any questions you have with your health care provider. Document Revised: 10/11/2020 Document Reviewed: 12/21/2019 [employer] Patient Education ? 2022 [employer] ENT Cough, Adult Coughing is a reflex that clears your throat and your airways (respiratory system). Coughing helps to heal and protect your lungs. It is normal to cough occasionally, but a cough that happens with other symptoms or lasts a long time may be a sign of a condition that needs treatment. An acute cough may only last 2?3 weeks, while a chronic cough may last 8 or more weeks. Coughing is commonly caused by: ? Infection of the respiratory systemby viruses or bacteria. ? Breathing in substances that irritate your lungs. ? Allergies. (more content not included)... Normal [facility] Physician Orderon 06-27-2023 Physician Order [id number] 4#1.00TIFF Normal [facility] Physician Referralon 023 Physician Referral [id number] #1.00TIFF Normal [facility] Progress Note - Woundon 06-07 Progress Note - Wound [id number] 2#1.00TIFF Normal [facility] Auto DiffOrdered By: SYSTEM SYSTEM on 06-26-2023 Basophils/100 WBC (Bld) 0.9 % Normal 0.0-2.0 [facility] Comment on above: Order Comment: Order Added by Discern Expert. Performed By: #### 1 [id number], 3729769, 7393999, 0252896, 42451841, 56702018 ####[facility] [address] [place] [address] Basophils/Leukocytes Auto (Bld) [Pure # fraction] 0.0 E9/L Normal 0.0-0.2 [facility] Comment on above: Order Comment: Order Added by Discern Expert. Performed By: #### 1 8583016, 9910244, 8507151, 2681160, 42549942, 29419127 ####[facility] [address] [place] [address] Eosinophils/100 WBC (Bld) 2.7 % Normal 0.0-8.0 [facility] Comment on above: Order Comment: Order Added by Discern Expert. Performed By: #### 1 4371587, 8057726, 5079424, 1379395, 93662346, 79145242 ####[facility] [address] [address] Eosinophils/Leukocyt es Auto (Bld) [Pure # fraction] 0.1 E9/L Normal 0.0-0.5 [facility] Comment on above: Order Comment: Order Added by Discern Expert. Performed By: #### 1 9624852, 2047904, 2972390, 9137828, 08566630, 22872232 ####[address] [address] Lymphocytes/100 WBC (Bld) 20.0 % Normal 14.0-50.0 [facility] Comment on above: Order Comment: Order Added by Discern Expert. Performed By: #### 1 8629403, 1585624, 3740862, 0099211, 80857185, 01400038 ####[address] [address] Lymphocytes/Leukocyt es Auto (Bld) [Pure # fraction] 0.9 E9/L Low 1.0-4.0 [facility] Comment on above: Order Comment: Order Added by Discern Expert. Performed By: #### 1 4438458, 3956122, 9474510, 3780862, 60445675, 51273861 ####[address] [address] Monocytes/100 WBC (Bld) 7.4 % Normal 4.0-14.0 [facility] Comment on above: Order Comment: Order Added by Discern Expert. Performed By: #### 1 4454066, 6009637, 1825056, 9915536, 33286214, 50703980 ####[address] [address] Monocytes/Leukocytes Auto (Bld) [Pure # fraction] 0.3 E9/L Normal 0.2-1.0 [facility] Comment on above: Order Comment: Order Added by Discern Expert. Performed By: #### 1 0568928, 1619014, 1567218, 2157909, 00506272, 35917341 ####[address] [address] Neutrophils/100 WBC (Bld) 69.0 % Normal 36.0-75.0 [facility] Comment on above: Order Comment: Order Added by Discern Expert. Performed By: #### 1 4722157, 9940287, 8659509, 4505767, 87994205, 88014688 ####[facility] [address] [place] [address] Neutrophils/Leukocyt es Auto (Bld) [Pure # fraction] 3.2 E9/L Normal 2.0-7.5 [facility] Comment on above: Order Comment: Order Added by Discern Expert. Performed By: #### 1 8897558, 8182675, 0381699, 9967020, 33222797, 20227324 ####[facility] [address] [address] BMPOrdered By: SYSTEM SYSTEM on 06-26-2023 Anion gap [Moles/Vol] 11 mmol/L Normal 6-16 [facility] Comment on above: Performed By: #### 1 0890083, 8155797, 7294907, 0739429, 18161849, 96278631 ####[facility] [address] [address] Calcium [Mass/Vol] 8.6 mg/dL Low 8.9-11.1 [facility] Comment on above: Performed By: #### 1 4738552, 6703326, 7145531, 2307400, 70041543, 96174508 ####[facility] [address] [place] [address] Chloride [Moles/Vol] 109 mmol/L Normal 101-111 [facility] Comment on above: Performed By: #### 1 1399931, 2974269, 8620888, 9586951, 69819601, 47387790 ####[facility] [address] [place] [address] CO2 [Moles/Vol] 26 mmol/L Normal 21-31 [facility] Comment on above: Performed By: #### 1 9370054, 2508761, 7564477, 5588395, 12753668, 64882529 ####[facility] [address] [place] [address] Creatinine [Mass/Vol] 0.9 mg/dL Normal 0.5-1.3 [facility] Comment on above: Performed By: #### 1 3548468, 7011995, 5575907, 7916943, 50870864, 90855052 ####[facility] [address] [place] [address] Glucose [Mass/Vol] 104 mg/dL Normal 55-199 [facility] Comment on above: Performed By: #### 1 3374954, 7159403, 8761221, 6867179, 25664200, 17837736 ####[address] [place] [address] Potassium [Moles/Vol] 3.9 mmol/L Normal 3.5-5.3 [facility] Comment on above: Performed By: #### 1 0871549, 8582172, 0984477, 0838166, 37535563, 73589104 ####[facility] [address] [place] [address] Sodium [Moles/Vol] 142 mmol/L Normal 135-145 [facility] Comment on above: Performed By: #### 1 5355128, 8248002, 1204763, 3332976, 79261448, 00463303 ####[facility] [address] [place] [address] Urea nitrogen [Mass/Vol] 12 mg/dL Normal 5-21 [facility] Comment on above: Performed By: #### 1 1085073, 0057288, 7620661, 9409247, 35497874, 80665555 ####[facility] [address] [place] [address] BMPon 06-26-2023 BUN/Creat Ratio 13 No Units Normal 10-20 [facility] Comment on above: Performed By: #### 1 3447554, 7159717, 0574127, 9589054, 86969376, 35466148 ####[address] [place] [address] CBC w/ Auto DiffOrdered By: Rossy Summers on 06-26-2023 Erythrocyte distribution width (RBC) [Ratio] 16.1 % High 10.9-14.2 [facility] Comment on above: Performed By: #### 1 0290748, 2687205, 8992844, 9622170, 93591661, 36488419 ####[facility] [address] [address] Hematocrit (Bld) [Volume fraction] 35.9 % Normal 34.0-46.0 [facility] Comment on above: Performed By: #### 1 0680894, 1270264, 9813871, 8731329, 40083618, 31225099 ####[facility] [address] [address] Hemoglobin (Bld) [Mass/Vol] 12.0 g/dL Normal 12.0-16.0 [facility] Comment on above: Performed By: #### 1 8356685, 5340263, 3011673, 9124020, 25359691, 98123055 ####[facility] [address] [address] MCH (RBC) [Entitic mass] 27.2 pg Normal 27.0-34.0 [facility] Comment on above: Performed By: #### 1 6125458, 2855977, 0375466, 6055181, 24063771, 68532674 ####[facility] [address] [address] MCHC (RBC) [Mass/Vol] 33.6 g/dL Normal 31.4-36.0 [facility] Comment on above: Performed By: #### 1 2039458, 4768096, 4332934, 2300979, 23678634, 76901512 ####[facility] [address] [address] MCV (RBC) [Entitic vol] 81.0 fL Normal 80.0-100.0 [facility] Comment on above: Performed By: #### 1 8186690, 5960795, 2162567, 0760723, 55648280, 87372631 ####[facility] [address] [place] [address] Platelet mean volume (Bld) [Entitic vol] 7.9 fL Normal 6.4-10.8 [facility] Comment on above: Performed By: #### 1 5328912, 7071699, 8441143, 1803003, 85144018, 30507550 ####[facility] [address] [place] [address] Platelets (Bld) [#/Vol] 138.0 E9/L Low 150.0-500.0 [facility] Comment on above: Performed By: #### 1 0076972, 9280465, 9364252, 4379285, 06818965, 62684900 ####[facility] [address] RBC (Bld) [#/Vol] 4.4 E12/L Normal 4.3-5.9 [facility] Comment on above: Performed By: #### 1 5776712, 9591794, 1207758, 0060269, 81436764, 11791301 ####[facility] [address] [address] WBC corrected for nucl RBC Auto (Bld) [#/Vol] 4.6 E9/L Normal 4.0-11.0 [facility] Comment on above: Performed By: #### 1 7434645, 5879108, 1792850, 4066348, 55069845, 53820318 ####[facility] [address] [address] CHEMISTRYOrdered By: SYSTEM SYSTEM on 06-26-2023 eGFR mL/min/1.73 m2 Normal >=59mL/min/1.73 m2 Re misol Chem Urea nitrogen/Creatinine [Mass ratio] 13 mg/mg Normal 10 - 20 [facility] COAGULATIONOrdered By: Franko Saldana on 06-26-2023 aPTT Coag (PPP) [Time] 31.8 s Normal 25.1 - 36.5 second(s) [facility] Auto [facility]ag Comment on above: Interpretive Data: P bryson 15 days - 4 weeks 1 - 5 months 6 - 11 months 1 - 5 years 6 - 10 years 11 - 17 years PTT Mean: 35.4 (27.6-45.6) Mean: 33.5 (24.8-40.7) Mean: 32.4 (25.1-40.7) Mean: 31.6 (24.0-39.2) Mean: 31.6 (26.9-38.7) Mean: 31.0 (24.6-38.4) Pediatric Reference ranges were obtained from a study by louis Fitzgerald prepared from 1437 samples obtained at 7 different centers using the same coagulation reagent and instrumentation as [facility]. Currently there are no coagulation studies available worldwide for children to 14 days, and no normal ranges. Heparin therapeutic range (represented by Anti-Factor Xa activity of 0.2 - 0.4 U/mL) corresponds to PTT of 56.6 - 109.0 sec. PT Coag (PPP) [Time] 10.7 s Normal 9.4 - 1 2.5 second(s) [facility] Comment on above: Interpretive Data: 1 5 days - 4 weeks 1 - 5 months 6 -11 months 1-5 years 6-10 years 11 -17 years Mean: 11.2 (9.5-12.6) Mean: 11.0 (9.7-12.8) Mean: 11.0 (9.8-13.0) Mean: 11.3 (9.9-13.4) Mean: 11.7 (10.0-14.6) Mean: 11.8 (10.0 - 14.1) Pediatric Reference ranges were obtained from a study by louis Fitzgerald prepared from 1437 samples obtained at 7 different centers using the same coagulation reagent and instrumentation as [facility]. Currently there are no coagulation studies available worldwide for children to 14 days, and no normal ranges. CT Head or Brain w/o Contras ton 06-26-2023 CT Head or Brain w/o Contrast Exam Date/Time: 06/26/2023 19:16 EST Reason for Exam: Headache, new or worsening;Other (please specify) Report IMPRESSION: There are no acute intracranial changes. EXAM: CT Head or Brain w/o Contrast DATE: 06/26/2023 7:07 PM CLINICAL HISTORY: AMS Headache, new or worsening TECHNIQUE: Multiple images axial images were obtained without contrast administration. 3-D sagittal and coronal reconstructions were performed. All CT scans at this facility use dose modulation, iterative reconstruction, and/or weight based dosing when appropriate to reduce radiation dose to as low as reasonably achievable. COMPARISON: FINDINGS: There is no evidence of acute hemorrhage, mass effect or edema. There are no extra-axial collections or space-occupying lesions. There is no evidence of acute ischemia, loss of prajapati-white matter differentiation The ventricles are sulci are within normal limits. The posterior fossa is unremarkable, The orbits demonstrate no intra or extraconal lesions. The globes are intact. The visualized portions of paranasal sinuses are unremarkable. The calvarium is unremarkable. Ordering Provider: Justin Bunch FINAL REPORT Dictated: 06/26/2023 7:25 pm Cesar Ortiz MD, V. Signed (Electronic Signature): 06/26/2023 7:25 pm Signed by: Cesar Ortiz MD, V. Transcribed by: ANDRAE Technologist: ROSALINA [facility] Consent for Procedure/Surger yon 06-26-2023 Consent for Procedure/Surgery [id number] 1#1.00TIFF [facility] Consent for Treatmenton 06-07 Consent for Treatment [id number] #1.00TIFF [facility] Consent for Treatment [id number] #1.00TIFF [facility] Consent to Photographon 06-07 Consent to Photograph [id number] 6#1.00TIFF [facility] Correspondence - Woundon Correspondence - Wound [id number] 3#1.00TIFF Normal [facility] Correspondence - Wound [id number] 1#1.00TIFF Normal [facility] Discharge Instructionson Discharge Instructions [id number] 9#1.00TIFF Normal [facility] ED Clinical Summaryon 2022 ED Clinical Summary [place] [id number] ED Clinical Summary Person Information Name: MECCAJESSENIA[place] Age: 52 Years : 1970 Sex: Female Language: [place] PCP: Pb BAUMAN DO Marital Status: Visit Id: Visit Reason: Hypertension; Headache; HIGH BLOOD PRESSURE - SENT BY [facility] CARE Speciality: Acuity: 3 Enc Type: Emergency Med Service: Emergency Arrival: 06/26/2023 18:31:10 Discharge: 06/26/2023 20:53:19 LOS: 000 02:22 Checkin: 06/26/2023 18:31:10 Checkout: 06/26/2023 20:53:19 Dispo Type: Home (Routine DC) EVENTS: Event Name Event Status Request Date/Time Start Date/Time Complete Date/Time Arrive Complete 06/26/2023 18:31:10 06/26/2023 18:31:10 06/26/2023 18:31:10 Document Home Meds Request 06/26/2023 18:31:10 Triage Complete 06/26/2023 18:31:10 06/26/2023 18:38:31 06/26/2023 18:38:31 Bed Assign Complete 06/26/2023 18:34:15 06/26/2023 18:34:15 06/26/2023 18:34:15 Dr Exam Complete 06/26/2023 18:34:15 06/26/2023 18:35:43 06/26/2023 18:35:43 RN Exam Complete 06/26/2023 18:34:15 06/26/2023 18:43:38 06/26/2023 18:43:38 Registration Complete 06/26/2023 18:35:43 06/26/2023 18:37:57 06/26/2023 18:43:11 Dr Exam Complete 06/26/2023 18:36:49 06/26/2023 18:36:49 06/26/2023 18:36:49 EKG Complete 06/26/2023 18:37:45 06/26/2023 18:48:36 Reg Complete Request 06/26/2023 18:43:11 Reg Bed Request Complete 06/26/2023 18:43:11 06/26/2023 18:43:11 06/26/2023 18:43:11 Pending Labs Request 06/26/2023 18:55:49 Lab Complete 06/26/2023 18:55:49 06/26/2023 19:29:27 X-Ray Complete 06/26/2023 18:55:49 06/26/2023 19:07:40 06/26/2023 19:23:01 CT Complete 06/26/2023 18:55:49 06/26/2023 19:07:26 06/26/2023 19:16:37 Meds Admin Complete 06/26/2023 18:55:49 06/26/2023 19:02:27 Pending Labs Complete 06/26/2023 19:06:21 06/26/2023 19:06:21 06/26/2023 19:29:27 Lab Complete 06/26/2023 19:06:21 06/26/2023 19:06:21 06/26/2023 19:29:27 Pending Labs Complete 06/26/2023 19:10:13 06/26/2023 19:10:13 06/26/2023 19:10:19 Lab Complete 06/26/2023 19:10:13 06/26/2023 19:10:13 06/26/2023 19:10:19 Wet Read Request 06/26/2023 19:23:01 Meds Admin Complete 06/26/2023 19:41:24 06/26/2023 20:18:02 Meds Admin Complete 06/26/2023 19:46:12 06/26/2023 20:02:20 Pending Labs Complete 06/26/2023 20:08:42 06/26/2023 20:08:42 06/26/2023 20:08:42 Discharge Complete 06/26/2023 20:47:16 06/26/2023 20:53:28 06/26/2023 20:53:28 Transfer Complete 06/26/2023 20:53:28 06/26/2023 20:53:28 06/26/2023 20:53:28 ADDRESS: [id number] [facility] [id number] PHYS DOC NOTES: MEDICAL INFORMATION: Prescriptions Given: Medications to Continue with No Changes Other Medications albuterol (albuterol HFA 90 mcg/inh MDI) 2 Puffs Inhalation 4 times a day. Refills: 2. fluticasone (fluticasone propionate 232 mcg/inh inhalation powder) 232 Microgram Inhalation every 12 hours. Swallowed rather than inhaled rinse mouth and throat after use. Refills: 5. lisinopril (lisinopril 10 mg Tab) 1 Tablets By Mouth every day. Refills: 1. omeprazole (omeprazole 20 mg Cap-DR) 1 Capsules By Mouth every day. Refills: 3. omeprazole (omeprazole 40 mg Cap-DR) 1 Capsules By Mouth every day. Refills: 1. sertraline (Zoloft 50 mg Tab) 1.5 Tablets By Mouth every day. Refills: 3. PATIENT EDUCATION INFORMATION: Instructions: Managing Your Hypertension; Migraine Headache Follow up: With: Address: When: Pb BAUMAN [address] [facility], [facility] [place] [phone] Business (1) In 3 days 06/29/2023 Comments: Follow-up with your primary care provider in 3 to 5 days. If symptoms worsen, do not improve, or new symptoms arise please report back to emergency department for further evaluation. Continue to monitor your blood pressure, and you may start 20 mg of lisinopril daily. DIAGNOSIS: Head ache; Hypertension Normal [facility] ED Patient Education Noteon 06-26-2023 ED Patient Education Note Cardiovascular Managing Your Hypertension Hypertension, also called high blood pressure, is when the force of the blood pressing against the hardin of the arteries is too strong. Arteries are blood vessels that carry blood from your heart throughout your body. Hypertension forces the heart to work harder to pump blood and may cause the arteries to become narrow or stiff. Understanding blood pressure readings A blood pressure reading includes a higher number over a lower number: ? The first, or top, number is called the systolic pressure. It is a measure of the pressure in your arteries as your heart beats. ? The second, or bottom number, is called the diastolic pressure. It is a measure of the pressure in your arteries as the heart relaxes. For most people, a normal blood pressure is below 120/80. Your personal target blood pressure may vary depending on your medical conditions, your age, and other factors. Blood pressure is classified into four stages. Based on your blood pressure reading, your health care provider may use the following stages to determine what type of treatment you need, if any. Systolic pressure and diastolic pressure are measured in a unit called millimeters of mercury (mmHg). Normal ? Systolic pressure: below 120. ? Diastolic pressure: below 80. Elevated ? Systolic pressure: 120?129. ? Diastolic pressure: below 80. Hypertension stage 1 ? Systolic pressure: 130?139. ? Diastolic pressure: 80?89. Hypertension stage 2 ? Systolic pressure: 140 or above. ? Diastolic pressure: 90 or above. How can this condition affect me? Managing your hypertension is very important. Over time, hypertension can damage the arteries and decrease blood flow to parts of the body, including the brain, heart, and kidneys. Having untreated or uncontrolled hypertension can lead to: ? A heart attack. ? A stroke. ? A weakened blood vessel (aneurysm). ? Heart failure. ? Kidney damage. ? Eye damage. ? Memory and concentration problems. ? Vascular dementia. What actions can I take to manage this condition? Hypertension can be managed by making lifestyle changes and possibly by taking medicines. Your health care provider will help you make a plan to bring your blood pressure within a normal range. You may be referred for counseling on a healthy diet and physical activity. Nutrition ? Eat a diet that is high in fiber and potassium, and low in salt (sodium), added sugar, and fat. An example eating plan is called the DASH diet. DASH stands for Dietary Approaches to Stop Hypertension. To eat this way: ? Eat plenty of fresh fruits and vegetables. Try to fill one-half of your plate at each meal with fruits and vegetables. ? Eat whole grains, such as whole-wheat pasta, brown rice, or whole-grain bread. Fill about one-fourth of your plate with whole grains. ? Eat low-fat dairy products. ? Avoid fatty cuts of meat, processed or cured meats, and poultry with skin. Fill about one-fourth of your plate with lean proteins such as fish, chicken without skin, beans, eggs, and tofu. ? Avoid pre-made and processed foods. These tend to be higher in sodium, added sugar, and fat. ? Reduce your daily sodium intake. Many people with hypertension should eat less than 1,500 mg of sodium a day. Lifestyle ? Work with your health care provider to maintain a healthy body weight or to lose weight. Ask what an ideal weight is for you. ? Get at least 30 minutes of exercise that causes your heart to beat faster (aerobic exercise) most days of the week. Activities may include walking, swimming, or biking. ? Include exercise to strengthen your muscles (resistance exercise), such as weight lifting, as part of your weekly exercise routine. Try to do these types of exercises for 30 minutes at least 3 days a week. ? Do not use any products that contain nicotine or tobacco. These products include cigarettes, chewing tobacco, and vaping devices, such as e-cigarettes. If you need help quitting, ask your health care provider. ? Control any long-term (chronic) conditions you have, such as high cholesterol or diabetes. ? Identify your sources of stress and find ways to manage stress. This may include meditation, deep breathing, or making time for fun activities. Alcohol use ? Do not drink alcohol if: ? Your health care provider tells you not to drink. ? You are , may be , or are planning to become . ? If you drink alcohol: ? Limit how much you have to: ? 0?1 drink a day for women. ? 0?2 drinks a day for men. ? Know how much alcohol is in your drink. In the [place] one drink equals one 12 oz bottle of beer (355 mL), one 5 oz glass of wine (148 mL), or one 1? oz glass of hard liquor (44 mL). Medicines Your health care provider may prescribe medicine if lifestyle changes are not enough to get your blood pressure under control and if: ? Your systolic blood pr (more content not included)... Normal [facility] ED Patient Summaryon 023 ED Patient Summary [address] [address] Patient Discharge Instructions Person Information Name: JESSENIA WING Age: 52 Years Arrival Date: 06/26/2023 18:31:10 Discharge Diagnosis: Head ache; Hypertension Primary Care Physician: Pb BAUMAN DO Provider Information Primary Provider: Everardo Perera DO Advanced Police Lieutenant:None The exam and treatment you received in the Emergency Department were for an urgent problem and are not intended as complete care. It is important that you follow up with a doctor, nurse practitioner, or physician?s teacher's assistant for ongoing care. If your symptoms become worse or you do not improve as expected and you are unable to reach your usual health care provider, you should return to the Emergency Department. We are available 24 hours a day. JESSENIA WING has been given the following list of patient education materials, prescriptions and follow-up instructions: Follow-up Instructions: With: Address: When: Pb BAUMAN [address] [facility], [facility] [place] [phone] Business (1) In 3 days 06/29/2023 Comments: Follow-up with your primary care provider in 3 to 5 days. If symptoms worsen, do not improve, or new symptoms arise please report back to emergency department for further evaluation. Continue to monitor your blood pressure, and you may start 20 mg of lisinopril daily. In the event that this physician does not participate in your insurance network, please consult with your insurance company to find a nearby participating provider. Patient Education Materials: Managing Your Hypertension; Migraine Headache A MESSAGE TO ALL PATIENTS REGARDING OPIOIDS PRESCRIPTION OPIOIDS: WHAT YOU NEED TO KNOW Prescription opioids can be used to help relieve exvloyvj-pp-kjskym pain and are often prescribed following a surgery or injury, or for certain health conditions. These medications can be an important part of the treatment but also come with serious risks. It is important to work with your healthcare provider to make sure you are getting the safest, most effective care. WHAT ARE THE RISKS AND SIDE EFFECTS OF OPIOID USE? Prescription opioids carry serious risks of addiction and overdose, especially with prolonged use. An opioid overdose, often marked by slowed breathing, can cause sudden . The use of prescription opioids can have a number of side effects as well, even when taken as directed: ? Tolerance?meaning you might need to take more of the medication for the same pain relief ? Physical dependence?meaning you have symptoms of withdrawal when a medication is stopped ? Increased sensitivity to pain ? Constipation ? Nausea, vomiting, and dry mouth ? Sleepiness and dizziness ? Confusion ? Depression ? Low levels of testosterone that can result in lower sex drive, energy, and strength ? Itching and sweating RISKS ARE GREATER WITH: ? History of drug misuse, substance use disorder, or overdose ? Mental health conditions (such as depression or anxiety) ? Sleep apnea ? Older age (65 years and older) ? Avoid alcohol while taking prescription opioids. Also, unless specifically advised by your health care provider, medications to avoid include: ? Benzodiazepines (such as Xanax or Valium) ? Muscle relaxants (such as Soma or Flexeril) ? Hypnotics (such as Ambien or Lunesta) ? Other prescription opioids KNOW YOUR OPTIONS Talk to your health care provider about ways to manage your pain that don?t involve prescription opioids. Some of these options may actually work better and have fewer risks and side effects. Options may include: ? Pain relievers such as acetaminophen, ibuprofen, and naproxen ? Some medication that are also used for depression or seizures ? Physical therapy and exercise ? Cognitive behavioral therapy, a psychological, goal-directed approach, in which patients learn how to modify physical, behavioral, and emotional triggers of pain and stress. IF YOU ARE PRESCRIBED OPIOIDS FOR PAIN: ? Never take opioids in greater amounts or more often than prescribed. ? Follow up with your primary health care provider. o Work together to create a plan on how to manage your pain. o Talk about ways to help manage your pain that don?t involve prescription opioids. o Talk about any and all concerns and side effects. ? Help prevent misuse and abuse o Never sell or share prescription opioids. o Never use another person?s prescription opioids. ? Store prescription opioids in a secure place and out of reach of others (this may include visitors, children, friends, and family). ? Safely dispose of unused prescription opioids: Find your community drug take-back program or your pharmacy mail-back program, or flush them down the toilet, following guidance from the Food and Drug Administration (more content not included)... Normal [facility] Multi-Wound Charton 06-26-20 Multi-Wound Chart [id number] 4#1.00TIFF Normal [facility] Nursing Assessment - Woundon 06-26-2023 Nursing Assessment - Wound [id number] 9#2.00TIFF Normal [facility] Nursing Assessment - Wound [id number] 8#1.00TIFF Normal [facility] PT & PTTon 06-26-2023 aPTT Coag (PPP) [Time] 31.8 second(s) Normal 25.1-36.5 [facility] Comment on above: Result Comment: Para meter 15 days - 4 weeks 1 - 5 months 6 - 11 months 1 - 5 years 6 - 10 years 11 - 17 years PTT Mean: 35.4 (27.6-45.6) Mean: 33.5 (24.8-40.7) Mean: 32.4 (25.1-40.7) Mean: 31.6 (24.0-39.2) Mean: 31.6 (26.9-38.7) Mean: 31.0 (24.6-38.4) Pediatric Reference ranges were obtained from a study by Dale Roque et al. prepared from 1437 samples obtained at 7 different centers using the same coagulation reagent and instrumentation as [facility]. Currently there are no coagulation studies available worldwide for children to 14 days, and no normal ranges. Heparin therapeutic range (represented by Anti-Factor Xa activity of 0.2 - 0.4 U/mL) corresponds to PTT of 56.6 - 109.0 sec. Performed By: #### 1 [id number] ####[facility] [address] [place] [address] PT Coag (PPP) [Time] 10.7 second(s) Normal 9.4-12.5 [facility] Comment on above: Result Comment: 15 d ays - 4 weeks 1 - 5 months 6 -11 months 1- 5 years 6-10 years 11 -17 years Mean: 11.2 (9.5-12.6) Mean: 11.0 (9.7-12.8) Mean: 11.0 (9.8-13.0) Mean: 11.3 (9.9-13.4) Mean: 11.7 (10.0-14.6) Mean: 11.8 (10.0 - 14.1) Pediatric Reference ranges were obtained from a study by christiano Fitzgerald al. prepared from 1437 samples obtained at 7 different centers using the same coagulation reagent and instrumentation as [facility]. Currently there are no coagulation studies available worldwide for children to 14 days, and no normal ranges. Performed By: #### 1 [id number] ####[facility] [address] [place] [address] PT & PTTOrdered By: Franko jenkins on 06-26-2023 INR Coag (PPP) [Relative time] 1.0 {INR} Invalid Interpretation Code [facility] Auto Coag Comment on above: Interpretive Data: I NR results are specifically intended to assess patients stabilized on long-term Anticoagulation therapy suggested INR s Less Intensive Anticoagulation 2.0 3.0 Conventional Range 3.0 4.5 Result Comment: INR results are specifically intended to assess patients stabilized on long-term Anticoagulation therapy suggested INR?s ?Less Intensive Anticoagulation? 2.0 ? 3.0 Conventional Range 3.0 ? 4.5 Performed By: #### 1 [id number], [id number], [id number], [id number], [id number] ####[facility] [address] [place] [address] Troponin 0 Hr.Ordered By: Naartjie SYSTEM on 06-26-2023 Troponin 2.50 pg/mL Low 10.10-27.10 [facility] Comment on above: Interpretive Data: T he 95% CI (Confidence Interval) PPV (Positive Predictive Value) for myocardial infarction in females is 38 pg/mL, in males 51 pg/mL. The results should be used in conjunction with clinical conditions of myocardial infarction. (Access High Sensitivity Troponin I Instructions For Use, [employer], February 2018) Result Comment: The 95% CI (Confidence Interval) PPV (Positive Predictive Value) for myocardial infarction in females is 38 pg/mL, in males 51 pg/mL. The results should be used in conjunction with clinical conditions of myocardial infarction. (4tiitoo High Sensitivity Troponin I Instructions For Use, [employer], February 2018) Performed By: #### 1 [id number], [id number], [id number], [id number], [id number] ####[facility] [address] [place] [address] XR Chest Single Viewon 06-26 XR Chest Single View Exam Date/Time: 06/26/2023 19:23 EST Reason for Exam: Chest pain Report IMPRESSION: There are no acute cardiopulmonary changes. CLINICAL HISTORY: Chest pain EXAMINATION: XR Chest Single View COMPARISON: FINDINGS: The cardiomediastinal silhouette is unremarkable. The lungs are free of infiltrates effusions or consolidations. There are no acute osseous changes. Ordering Provider: Justin Bunch FINAL REPORT Dictated: 06/26/2023 7:40 pm Cesar Ortiz MD, V. Signed (Electronic Signature): 06/26/2023 7:40 pm Signed by: Cesar Ortiz MD, V. Transcribed by: ANDRAE Technologist: NICK Technical Comments Radiation Dose: Ka,r in mGy = na DAP = na Normal [facility] eGFRon 06-26-2023 GFR/1.73 sq M.predicted among non-blacks MDRD (S/P/Bld) [Vol rate/Area] mL/min/{1.73_m2} Normal >=59 [facility] Comment on above: Order Comment: Order added by Discern Expert. Performed By: #### 1 [id number], [id number], [id number], [id number] ####[facility] [address] [place] [address] Reminderson 03-12-2023 Reminders - From: Morena Rousseau CNP To: Miya Tenorio; Sent: 03/05/2023 15:23:19 EDT Show up: 03/05/2023 15:24:00 EDT Subject: Ambulatory Reminder Reminder/Recall Colonoscopy in 2032. 02/05/2033 10 year colon recall Normal [facility] Gastroenterology Office/Clin ic Noteon 03-05-2023 Gastroenterology Office/Clinic Note Chief Complaint EGD and colonoscopy results. HPI Staff Patient is a 52 year old female here today to review results from EGD and colonoscopy. History of Present Illness Patient is a 52-year-old female who presents for follow-up from EGD/colonoscopy completed 02/05/[address] Chung. Patient was previously evaluated by Dr. Chung 12/2022 for further evaluation of dysphagia and heartburn. Note indicated patient's dysphagia was primarily with solids. Patient was ordered EGD with dilation and colonoscopy. EGD with dilation completed 02/05/2023 revealed distal esophageal Schatzki's ring?dilated, mild gastric erosions, normal duodenum, stomach biopsy revealed nonspecific chronic inflammation, negative for H. pylori. Patient was advised to take omeprazole 40 mg daily. Colonoscopy completed 02/05/2023 revealed diverticulosis, hemorrhoids?patient is due for repeat colonoscopy in 2032. During today's visit, patient reports her acid reflux is well-controlled with omeprazole 40mg daily. Denies having any further dysphagia in the last 3 weeks. Is having 1 formed BM daily. Takes motrin occasionally- 2 times a month. Denies black/bloody stools, nausea/vomiting, and denies having any GI complaints. Review of Systems ROS - Provider Constitutional: no fever, no chills. Skin: no Jaundice. ENMT: Denies dysphagia and heartburn. Respiratory: no shortness of breath. Cardiovascular: no chest pain. Gastrointestinal: no nausea, no vomiting, no diarrhea, no GI bleeding. Physical Exam Vitals & Measurements T: 36.4 ?C(Temporal Artery) HR: 73(Peripheral) BP: 140/96 HT: 66 in HT: 167 cm WT: 110.2 kg WT: 242.44 lb BMI: 39.51 General: Well developed, well nourished, in no acute distress Head: Normocephalic/atraum atic Lungs: Normal respiratory effort and clear to auscultation Cardio: Regular rate and rhythm, normal S1 and S2, no murmur, no rub Abdomen: Soft, non-distended, non-tender. Normoactive bowel sounds present in all 4 abdominal quadrants, bilaterally. Mental Status: Alert and oriented x3. Normal mood and affect Assessment/Plan BP elevated today at 149/116. BP rechecked personally and improved at 140/96- BP managed by patient's PCP. 1. Gastric erosions (K25.9: Gastric ulcer, unspecified as acute or chronic, without hemorrhage or perforation) EGD with dilation completed 02/05/2023 revealed distal esophageal Schatzki's ring?dilated, mild gastric erosions, normal duodenum, stomach biopsy revealed nonspecific chronic inflammation, negative for H. pylori. Continue omeprazole 40 mg daily. Avoid NSAIDs. 2. Schatzki's ring (K22.2: Esophageal obstruction) EGD with dilation completed 02/05/2023 revealed distal esophageal Schatzki's ring?dilated, mild gastric erosions, normal duodenum, stomach biopsy revealed nonspecific chronic inflammation, negative for H. pylori. Continue omeprazole 40 mg daily. Avoid NSAIDs. 3. Heartburn (R12: Heartburn) Controlled with omeprazole 40mg daily. EGD with dilation completed 02/05/2023 revealed distal esophageal Schatzki's ring?dilated, mild gastric erosions, normal duodenum, stomach biopsy revealed nonspecific chronic inflammation, negative for H. pylori. Continue omeprazole 40 mg daily. Avoid NSAIDs. 4. Diverticulosis (K57.90: Diverticulosis of intestine, part unspecified, without perforation or abscess without bleeding) Colonoscopy completed 02/05/2023 revealed diverticulosis, hemorrhoids?patient is due for repeat colonoscopy in 2032. Educated regarding fiber supplementation- metamucil 1 capsule daily- separate 2 hours from other medications. 5. Hemorrhoids (K64.9: Unspecified hemorrhoids) Colonoscopy completed 02/05/2023 revealed diverticulosis, hemorrhoids?patient is due for repeat colonoscopy in 2032. Educated regarding fiber supplementation- metamucil 1 capsule daily- separate 2 hours from other medications. Follow-up With When Contact Information Morena Rousseau CNP Within 3 months Additional Instructions: Patient Education Diverticulosis Peptic Ulcer Problem List/Past Medical History Ongoing Allergic rhinitis Anemia Breast cancer screening Colon cancer screening Diverticulosis Gastric erosions Heartburn Hemorrhoids History of left knee replacement Non-smoker Normocytic anemia Schatzki's ring Tenderness of lymph node Venous insufficiency Historical BACTERIAL PNEUMONIA, UNSPECIFIED Dysphagia Hypertension Microcytosis None Screening for cardiovascular condition Ventral hernia Procedure/Surgical History Colonoscopy (02/05/2023), EGD (esophagogastroduode noscopy) and 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 Medications albuterol HFA 90 mcg/inh MDI, 2 puff(s), Inhalation, QID, 2 refills fluticasone propionate (more content not included)... Normal [facility] Comment on above: Result Comment: Elec tronically Signed By: Soham DAVIS, Morena Trejo\.br\Date and Time Signed: 03/05/23 15:29 EDT Patient Educationon 03-05-20 Patient Education Gastroenterology Diverticulosis Diverticulosis is a condition that develops when small pouches (diverticula) form in the wall of the large intestine (colon). The colon is where water is absorbed and stool (feces) is formed. The pouches form when the inside layer of the colon pushes through weak spots in the outer layers of the colon. You may have a few pouches or many of them. The pouches usually do not cause problems unless they become inflamed or infected. When this happens, the condition is called diverticulitis. What are the causes? The cause of this condition is not known. What increases the risk? The following factors may make you more likely to develop this condition: ? Being older than age 60. Your risk for this condition increases with age. Diverticulosis is rare among people younger than age 30. By age 80, many people have it. ? Eating a low-fiber diet. ? Having frequent constipation. ? Being overweight. ? Not getting enough exercise. ? Smoking. ? Taking qlpx-ijx-mctyjju pain medicines, like aspirin and ibuprofen. ? Having a family history of diverticulosis. What are the signs or symptoms? In most people, there are no symptoms of this condition. If you do have symptoms, they may include: ? Bloating. ? Cramps in the abdomen. ? Constipation or diarrhea. ? Pain in the lower left side of the abdomen. How is this diagnosed? Because diverticulosis usually has no symptoms, it is most often diagnosed during an exam for other colon problems. The condition may be diagnosed by: ? Using a flexible scope to examine the colon (colonoscopy). ? Taking an X-ray of the colon after dye has been put into the colon (barium enema). ? Having a CT scan. How is this treated? You may not need treatment for this condition. Your health care provider may recommend treatment to prevent problems. You may need treatment if you have symptoms or if you previously had diverticulitis. Treatment may include: ? Eating a high-fiber diet. ? Taking a fiber supplement. ? Taking a live bacteria supplement (probiotic). ? Taking medicine to relax your colon. Follow these instructions at home: Medicines ? Take jtqy-ufg-igiahht and prescription medicines only as told by your health care provider. ? If told by your health care provider, take a fiber supplement or probiotic. Constipation prevention Your condition may cause constipation. To prevent or treat constipation, you may need to: ? Drink enough fluid to keep your urine pale yellow. ? Take xzay-sgr-nqgwmsp or prescription medicines. ? Eat foods that are high in fiber, such as beans, whole grains, and fresh fruits and vegetables. ? Limit foods that are high in fat and processed sugars, such as fried or sweet foods. General instructions ? Try not to strain when you have a bowel movement. ? Keep all follow-up visits as told by your health care provider. This is important. Contact a health care provider if you: ? Have pain in your abdomen. ? Have bloating. ? Have cramps. ? Have not had a bowel movement in 3 days. Get help right away if: ? Your pain gets worse. ? Your bloating becomes very bad. ? You have a fever or chills, and your symptoms suddenly get worse. ? You vomit. ? You have bowel movements that are bloody or black. ? You have bleeding from your rectum. Summary ? Diverticulosis is a condition that develops when small pouches (diverticula) form in the wall of the large intestine (colon). ? You may have a few pouches or many of them. ? This condition is most often diagnosed during an exam for other colon problems. ? Treatment may include increasing the fiber in your diet, taking supplements, or taking medicines. This information is not intended to replace advice given to you by your health care provider. Make sure you discuss any questions you have with your health care provider. Document Revised: 01/20/2020 Document Reviewed: 01/20/2020 [employer] Patient Education ? 2022 [place]. Peptic Ulcer A peptic ulcer is a sore in the lining of the stomach (gastric ulcer) or the first part of the small intestine (duodenal ulcer). The ulcer causes a gradual wearing away (erosion) of the deeper tissue. What are the causes? Normally, the lining of the stomach and the small intestine protects them from the acid that digests food. The protective lining can be damaged by: ? An infection caused by a type of bacteria called Helicobacter pylori or H. pylori. ? Regular use of NSAIDs, such as ibuprofen or aspirin. ? Rare tumors in the stomach, small intestine, or pancreas (Eduardo?Harvey syndrome). What increases the risk? The following factors may make you more likely to develop this condition: ? Smoking. ? Having a family history of ulcer disease. ? Drinking alcohol. ? Having been hospitalized in a (more content not included)... [facility] Reminderson 02-18-2023 Reminders - From: Harvey Charles To: [facility] - Reminders/Recalls; Sent: 02/18/2023 15:57:52 EDT Show up: 01/04/2033 15:57:00 EDT Subject: Ambulatory Reminder Due Date/Time: 02/05/2033 15:57:00 EDT Reminder/Recall Repeat colonoscopy in 10 years(2032) [facility] Postoperative Documentson Postoperative Documents [id number] 1#1.00CD:127 [facility] IntraOperative Documentson 0 02-10-2023 IntraOperative Documents [id number] 3#1.00CD:127 [facility] Consenton 02-06-2023 Consent [id number] 9#1.00CD:127 [facility] Discharge Instructionson Discharge Instructions [id number] 9#1.00CD:127 [facility] Main OR Intraoperative Recor don 02-06-2023 Main OR Intraoperative Record IntraOp Document Type FT Summary Primary Physician: Keith CHUNG MD Finalized Date/Time: 02/06/23 09:01:34 Pt. Name: MECCA, JESSENIA /Sex: 1970 Female Med Rec #: [id number] Physician: Keith CHUNG MD Financial #: [id number] Pt. Type: O Room/Bed: Endo OP 02/04 Admit/Disch: 02/05/23 11:48:01 - 02/05/23 23:59:59 Institution: Case Times FT Entry 1 Patient Times In Room 02/05/23 13:06:00 Out Room 02/05/23 13:28:00 Procedure Times Start 02/05/23 13:13:00 Stop 02/05/23 13:25:00 Anesthesia Times Start 02/05/23 13:06:00 Stop 02/05/23 13:28:00 Time at [place] 02/05/23 13:19:00 Last Modified By: Kaleigh Menendez RN 02/05/23 13:28:42 General Comments: EGD end time at 1316./GENNYRN Colonoscopy start time at 1317./GENNYRN 02/06/23 chart opened for charge review per Stevie Hopper RN. [place] Case Attendance FT Entry 1 Entry 2 Entry 3 Case Attendee Costa RYDER, Zeke Acuna, Romana Mello MOUSE BREEDER, Monica Tovar Role Performed COMPOSITION STONE APPLICATOR Staff - Other Scrub - Primary Time In 02/05/23 13:06:00 02/05/23 13:06:00 02/05/23 13:06:00 Time Out 02/05/23 13:28:00 02/05/23 13:28:00 02/05/23 13:28:00 Procedure EGD AND COLONOSCOPY(.) EGD AND COLONOSCOPY(.) EGD AND COLONOSCOPY(.) Comments Dr. Adams is supervising Last Modified By: Kaleigh Menendez RN, RN, Kaleigh Grimes RN 02/05/23 13:28:43 02/05/23 13:28:43 02/05/23 13:28:43 Entry 4 Entry 5 Case Attendee OMAR CROCKER, Keith Menendez RN, Kaleigh Cuellar Role Performed Surgeon - Primary Electrical Installation Supervisor - Primary Time In 02/05/23 13:06:00 02/05/23 13:06:00 Time Out 02/05/23 13:28:00 02/05/23 13:28:00 Procedure EGD AND COLONOSCOPY(.) EGD AND COLONOSCOPY(.) Comments Last Modified By: Shon HARLEY, Kaleigh Grimes RN 02/05/23 13:28:43 02/05/23 13:28:43 Perioperative Protocols FT Pre-Care Text: Implements protective measures prior to operative or invasive procedure, confirms identity before the operative or invasive procedure, verifies operative procedure, surgical site, and laterality Entry 1 Procedure(s) EGD AND COLONOSCOPY(.) Patient Identity Birthday, ID Band Verified (select at Check, Patient least 2): Participation Consents / H and P Anesthesia Consent, Operative Site N/A Verified HandP, Surgery/Procedure Marking Verified Consent Surgical Site No Laterality Verified n/a Verified Procedure Verified Yes Correct Patient Yes Position Verified Availability Equipment, Medication Prep Dry n/a Verified (If Applicable) PreOp Antibiotic No Time Out Zeke Skelton CRNA, Given Participants Romana Acuna Schafer CST, OMAR Moss MD, Shon Parker RN, Kaleigh Cuellar Time Out Complete 02/05/23 13:12:00 Outcomes Met? Yes Last Modified By: Kaleigh Menendez RN 02/05/23 13:13:16 Post-Care Text: The patient is free from signs and symptoms of injury caused by extraneous objects Allergy Information FT Pre-Care Text: Verifies allergies Entry 1 Allergies Reviewed? Yes Allergies Reviewed Self/Patient With Outcomes Met? Yes Last Modified By: Kaleigh Menendez RN 02/05/23 13:10:07 Post-Care Text: The patient received appropriate medication(s) safely administered during the perioperative period Surgical Procedures FT Entry 1 Procedure Description Procedure EGD AND COLONOSCOPY Modifiers . Surgeon Description EGD with gastric biopsy and dialate with a 60 Fr. Mckoy. Colonoscopy Primary Procedure Yes Primary Surgeon Keith CHUNG MD Start 02/05/23 13:13:00 Stop 02/05/23 13:25:00 Anesthesia Type General Surgical Service Gastroenterology Wound Class 2 - Clean-Contaminated Last Modified By: Kaleigh Menendez RN 02/05/23 13:26:16 General Case Data FT Pre-Care Text: Classifies surgical wound, implements aseptic technique, initiates traffic control Entry 1 Case Information OR ENDO 1 FT Case Level Level 2 Wound Class 2 - Clean-Contaminated Specialty Gastroenterology ASA Class 2 Preop Diagnosis Screening, dysphagia, Postop Same As Preop No heartburn Postop Diagnosis EGD- Schatzki's ring Outcomes Met? Yes gastric erosions. Colonoscopy- Diverticulosis, internal hemorrhoids Last Modified By: Kaleigh Menendez RN 02/05/23 13:27:27 Post-Care Text: The patient is free from signs and symptoms of infection Skin Assessment (Pre Procedure) FT Pre-Care Text: Implements protective measures to prevent skin/ tissue injury due to thermal or mechanical sources Evaluates for signs and symptoms of physical injury to skin and tissue Entry 1 Skin Integrity Intact, [place], Warm, and Skin Abnormality No Dry Outcomes Met? Yes Last Modified By: Kaleigh Menendez RN 02/05/23 13:10:51 Post-Care Text: The patient is free from signs and symptoms of injury caused by extraneous objects Patient Positioning FT Pre-Care Text: Identifies physical alterations that require additional precautions for procedure-specific positioning, verifies (more content not included)... [facility] Consent for Treatmenton Consent for Treatment [id number] #1.00CD:127 Normal [facility] Discharge Instructionson Discharge Instructions JESSENIA WING :1970 Visit Date:02/05/2023 Inpatient Discharge Instructions Your Care Team Admitting Physician - Keith CHUNG MD Referring Physician - Keith CHUNG MD Reason for Your Visit SCREENING COLON CA, DYSPHAGIA, HEARTBURN Your Diagnosis Encounter for screening for malignant neoplasm of rectum Schatzki's ring Screening for colorectal cancer Tests Performed Pathology Tissue Exam -- Results Pending -- Please visit your patient portal for your results or contact your primary care physician. This Is Your Medications List albuterol (albuterol HFA 90 mcg/inh MDI) fluticasone (fluticasone propionate 232 mcg/inh inhalation powder) lisinopril (lisinopril 10 mg Tab) omeprazole (omeprazole 20 mg Cap-DR) omeprazole (omeprazole 40 mg Cap-DR) sertraline (Zoloft 50 mg Tab) Procedure History Sclerotherapy (09/02/2022), Revision (12/20/2020), Sclerotherapy (10/05/2020), left TKR (11/18/2016), knee arthroscope with partial medial meniscectomy and excision of loose body (08/18/2015), section, Cholecystectomy, incisional hernia repair. What to do next Instructions From Your Doctor Event Name Event Result Discharge Instructions Freetext Increase omeprazole to 40 mg p.o. daily Discharge Activity Resume normal activities in 24 hours Discharge Restrictions No driving for 24 hrs, Do not operate machinery or tools, Do not make important decisions for 24 hours Discharge Diet(s) Regular Pharmacy Information [facility] Discharge Instructions Discharge Instructions New Follow Up Appointments after Discharge Follow Up with OMAR CROCKER, LAINEY Parker, [facility] When: Comments: Call for any problems. Office will call to schedule follow up appointment Where: [address] [place] [address] [address] [place] [address] Medications What How Much When Instructions Next Dose Changed omeprazole (omeprazole 20 mg Cap-DR) 1 Capsules By Mouth Every day Changed omeprazole (omeprazole 40 mg Cap-DR) 1 Capsules By Mouth Every day Pickup at [facility] 1985 Unchanged albuterol (albuterol HFA 90 mcg/ inh MDI) 2 Puffs Inhalation 4 times a day Unchanged fluticasone (fluticasone propionate 232 mcg/ inh inhalation powder) 232 Microgram Inhalation Every 12 hours Swallowed rather than inhaled rinse mouth and throat after use Unchanged lisinopril (lisinopril 10 mg Tab) 1 Tablets By Mouth Every day Unchanged sertraline (Zoloft 50 mg Tab) 1.5 Tablets By Mouth Every day Pharmacy Information [facility] [address] [place] [place] [phone] Test Results No qualifying data available. Allergies seasonal ,dust, mold (hayfever) Problems Ongoing - Any problem that you are currently receiving treatment for. Allergic rhinitis Anemia Breast cancer screening Colon cancer screening Dysphagia Heartburn History of left knee replacement Non-smoker Normocytic anemia Tenderness of lymph node Venous insufficiency Historical - Any problem that you are no longer receiving treatment for. BACTERIAL PNEUMONIA, UNSPECIFIED Hypertension Microcytosis None Screening for cardiovascular condition Ventral hernia Education Materials Upper Endoscopy, Adult, Care After This sheet gives you information about how to care for yourself after your procedure. Your health care provider may also give you more specific instructions. If you have problems or questions, contact your health care provider. What can I expect after the procedure? After the procedure, it is common to have: ? A sore throat. ? Mild stomach pain or discomfort. ? Bloating. ? Nausea. Follow these instructions at home: ? Follow instructions from your health care provider about what to eat or drink after your procedure. ? Return to your normal activities as told by your health care provider. Ask your health care provider what activities are safe for you. ? Take ilul-nsk-lqzbugm and prescription medicines only as told by your health care provider. ? If you were given a sedative during the procedure, it can affect you for several hours. Do not drive or operate machinery until your health care provider says that it is safe. ? Keep all follow-up visits as told by your health care provider. This is important. Contact a health care provider if you have: ? A sore throat that lasts longer than one day. ? Trouble swallowing. Get help right away if: ? You vomit blood or your vomit looks like coffee grounds. ? You have: ? A fever. ? Bloody, black, or tarry stools. ? A severe sore throat or you cannot swallow. ? Difficulty breathing. ? Severe pain in your chest or abdomen. Summary ? After the procedure, it is common to have a sore throat, mild stomach discomfort, bloating, and nausea. ? If you were given a sedative during the procedure, it can affect you f (more content not included)... [facility] Comment on above: Result Comment: Elec tronically Signed By: Rachel HARLEY, Marcie\.miki\Date and Time Signed: 02/05/23 13:37 EDT Endoscopic Procedure Report - Otheron 02-05-2023 Endoscopic Procedure Report - Other Patient: JESSENIA WING Age: 52 years Sex: Female : 1970 Associated Diagnoses: None Author: Keith CHUNG MD Pre-Procedure Procedure Date 02/05/2023 13:30:00 . Procedure Type: Colonoscopy. Procedure provider Performed by Keith Chung MD. Current history and physical Documented on chart. Colorectal neoplasm risk assessment Average risk. Informed Consent After discussing the rationale, risks and benefits, and alternatives to this procedure, the patient provided signed consent for the procedure. Pre-procedure diagnosis: Age 50 years or over. Medications Anticoagulant/antipl atelet None. ASA Classification: Class II. . Monitoring: See anesthesia record. . Procedure The procedure was performed in the hospital. See anesthesia record for sedation given during procedure. Rectal exam was performed and was normal with no masses palpated, with no gross blood, with no fissure(s). The patient was positioned starting in the left lateral decubitus position and with safety measures. Endoscope type used was an adult-size. The endoscope was lubricated then introduced through the anus. The scope was advanced to the cecum verified by photographing the appendiceal orifice, verified by photographing the ileocecal valve. No difficulties encountered during the procedure. The bowel preparation quality was adequate (see polyps greater than or equal to 6 millimeters). The patient tolerated the procedure well. Findings Moderate diverticulosis throughout the colon and moderate nonbleeding internal hemorrhoids, otherwise normal colonoscopy Images Procedure images: [id number]_hd_video_2022_0 [id number] g [id number]_hd_video_2022_[id number] _[id number] g Rec_hd_video_2022_0 _[id number] g . Post-Procedure Complications: none. Estimated blood loss: none. Specimens: none. Devices/ implants: none left in place. Impression and Plan Impression: Moderate diverticulosis throughout the colon and moderate nonbleeding internal hemorrhoids, otherwise normal colonoscopy. Recommendations: Repeat colonoscopy:: In 10 years. Follow-up:: Follow-up with PCP as previously scheduled. Diet:: Resume previous diet. Medication resumption:: Continue current medications. Return to activities:: After 24 hours. [facility] Comment on above: Result Comment: Elec tronically Signed By: Keith CHUNG MD\.br\Date and Time Signed: 02/05/23 13:31 EDT Other Comment: Analia monique Attachment - attachment storage system not supported [id number] Can be viewed in source systemMissing Attachment - attachment storage system not supported [id number] Can be viewed in source systemMissing Attachment - attachment storage system not supported [id number] Can be viewed in source system Endoscopic Procedure Report - Other Patient: JESSENIA WING Age: 52 years Sex: Female : 1970 Associated Diagnoses: None Author: Keith CHUNG MD Pre-Procedure Procedure Date 02/05/2023 13:27:00 . Procedure Type: Esophagogastroduoden oscopy. Procedure provider Performed by Keith Chung MD. Current history and physical Documented on chart. Informed Consent After discussing the rationale, risks and benefits, and alternatives to this procedure, the patient provided signed consent for the procedure. Pre-procedure diagnosis: Dysphagia/ odynophagia. Medications Anticoagulant/antipl atelet None. Antibiotic prophylaxis None. ASA Classification: Class II. . Monitoring: See anesthesia record. . Procedure The procedure was performed in the hospital. See anesthesia record for sedation given during procedure. The patient was positioned starting in the left lateral decubitus position and with safety measures. Endoscope type used was an adult-size, introduced orally, advanced to the 2nd portion of the duodenum. No difficulty was encountered during the procedure. Views were excellent. The patient tolerated the procedure well. Findings 1. Distal esophageal Schatzki ring, dilated using 60 Urdu Mckoy dilator 2. Mild gastric erosions, biopsied to rule out H. pylori 3. Normal duodenal mucosa Images Procedure images: [id number]_hd_video_2022_0 _[id number]__[id number].ewa g Rec1_hd_video_2022_0 8_T1__[id number].ewa g Rec1_hd_video_ 8_T1_[id number].ewa g . Post-Procedure Complications: none. Estimated blood loss: none. Specimens: sent to pathology. Devices/ implants: none left in place. Impression and Plan 1. Distal esophageal Schatzki ring, dilated using 60 Urdu Mckoy dilator 2. Mild gastric erosions, biopsied to rule out H. pylori Recommendations: Follow-up in GI clinic in 2 weeks Omeprazole 40 mg p.o. daily [facility] Comment on above: Result Comment: Elec tronically Signed By: Keith CHUNG MD\.br\Date and Time Signed: 02/05/23 13:30 EDT Other Comment: Analia monique Attachment - attachment storage system not supported [id number] Can be viewed in source systemMissing Attachment - attachment storage system not supported [id number] Can be viewed in source systemMissing Attachment - attachment storage system not supported [id number] Can be viewed in source system Main OR PACU I Recordon Main OR PACU I Record PACU Phase I Document Type FT Summary Primary Physician: Keith CHUNG MD Finalized Date/Time: 02/05/23 14:25:47 Pt. Name: MECCAJESSENIA/Sex: 1970 Female Med Rec #: [id number] Physician: Keith CHUNG MD Financial #: [id number] Pt. Type: O Room/Bed: Endo OP 02/04 Admit/Disch: 02/05/23 11:48:01 - Institution: Case Times PACU I FT Pre-Care Text: Identifies barriers to communication and implements measures to provide psychological support Develops individualized plan of care, and ensures continuity of care Maintains patient's dignity and privacy, and maintains patient confidentiality Identifies and reports philosophical, cultural, and spiritual beliefs and values Identifies individual values and wishes concerning care Implements aseptic technique, and administers prescribed antibiotic therapy and immunizing agents as ordered Evaluates postoperative tissue perfusion Implements thermoregulation measures, and monitors body temperature Evaluates postoperative respiratory status Evaluates postoperative cardiac status Evaluates postoperative neurological status Assesses pain control, collaborated in initiating patient-controlled analgesia and implements alternative methods of pain control Verifies allergies, administers prescribed medications and solutions, evaluates response to medications Entry 1 In PACU I 02/05/23 13:29:00 Discharge from PACU 02/05/23 13:59:00 I Outcomes Met? Yes Last Modified By: Marcie Ramos RN 02/05/23 14:25:23 Post-Care Text: The patient demonstrates knowledge of the expected response to the operative or invasive procedure The patient's care is consistent with the individualized perioperative plan of care The patient's right to privacy is maintained The patient's value system, lifestyle, ethnicity, and culture are considered, respected, and incorporated into the perioperative plan of care The patient participates in decisions affecting his or her perioperative plan of care The patient is free from signs and symptoms of infection The patient has wound/tissue perfusion consistent with or improved from baseline levels established preoperatively The patient is at or returning to normothermia at the conclusion of the immediate postoperative period The patient's respiratory function is consistent with or improved from baseline levels established preoperatively The patient's cardiovascular status is consistent with or improved from baseline levels established preoperatively The patient's cardiovascular status is consistent with or improved from baseline levels established preoperatively The patient demonstrates and/or reports adequate pain control throughout the perioperative period The patient received appropriate medication(s), safely administered during the perioperative period Acuity Level PACU I FT Entry 1 Start Time 02/05/23 13:29:00 Stop Time 02/05/23 13:59:00 Acuity Level Acuity Level I Last Modified By: Marcie Ramos RN 02/05/23 14:25:41 Finalized By: Marcie Ramos RN Document Signatures Signed By: Marcie Ramos RN 02/05/23 14:25 [facility] Main OR Preoperative Recordo n 02-05-2023 Main OR Preoperative Record Holding Area Document Type FT Summary Primary Physician: Keith CHUNG MD Finalized Date/Time: 02/05/23 12:11:06 Pt. Name: MECCAJESSENIA/Sex: 1970 Female Med Rec #: [id number] Physician: Keith CHUNG MD Financial #: [id number] Pt. Type: O Room/Bed: Endo OP 02/04 Admit/Disch: 02/05/23 11:48:01 - Institution: Case Times Holding FT Pre-Care Text: Verifies consent for planned procedure, identifies individual values and wishes concerning care, includes family members in perioperative teaching Secures patient's records' belongings, and valuables, maintains patient's dignity and privacy, and maintains patient confidentiality Entry 1 In Holding 02/05/23 12:05:00 Outcomes Met? Yes Last Modified By: Cristiane Corey RN 02/05/23 12:09:22 Post-Care Text: The patient participates in decisions affecting his or her perioperative plan of care The patient's right to privacy is maintained Surgery Checklist FT Entry 1 Patient Birthday, ID Band Procedure History and Physical, Identification: Check, Patient Verification: Surgical Consent, With Participation Patient NPO after Midnight: Yes Date/Time: 02/05/23 07:50:00 Personal Items: Glasses Personal Items left knee replacement, Comment: clothes, shoes, glasses Limitations: n/a Complaints of Pain: No Pain Comment: denies Operative Site n/a Marking: Marked By: n/a Availability Equipment Verified: Does Patient Smoke No Patient states Yes Comment - Adult Lianet- daughter postop adult Supervision supervision available Case Cancelled in No Holding Area see comments below for reason Last Modified By: Cristiane Corey RN 02/05/23 12:11:03 General Comments: Pt finished colon prep at 0750, states stool is clear liquid yellow /,RN Finalized By: Cristiane Corey RN Document Signatures Signed By: Cristiane Corey RN 02/05/23 12:11 [facility] Monitor Recordon 02-05-2023 Monitor Record [id number] 4#1.00CD:127 [facility] Patient Education - Texton 0 02-05-2023 Patient Education - Text Colonoscopy Care After Surgery Please read the instructions outlined below and refer to this sheet in the next few weeks. These discharge instructions provide you with general information on caring for yourself after you leave the hospital. Your doctor may also give you specific instructions. While your treatment has been planned according to the most current medical practices available, unavoidable complications occasionally occur. If you have any problems or questions after discharge, please call your doctor. ACTIVITY You may resume your regular activity, but move at a slower pace for the next 24 hours. Take frequent rest periods for the next 24 hours. Walking will help get rid of the air and reduce the bloated feeling in your abdomen (belly). No driving for 24 hours (because of the anesthesia (medicine) used during the test). You may shower. Do not sign any important legal documents or operate any machinery for 24 hours (because of the anesthesia used during the test). NUTRITION Drink plenty of fluids. You may resume your normal diet as instructed by your doctor. Begin with a light meal and progress to your normal diet. Heavy or fried foods are harder to digest and may make you feel nauseated (sick to your stomach). Avoid alcoholic beverages for 24 hours or as instructed. MEDICATIONS You may resume your normal medications unless your doctor tells you otherwise. WHAT YOU CAN EXPECT TODAY Some feelings of bloating in the abdomen. Passage of more gas than usual. Spotting of blood in your stool or on the toilet paper. FOLLOW-UP Your doctor will discuss the results of your test with you. SEEK IMMEDIATE MEDICAL ATTENTION IF: There is more than a spotting of blood in your stool. There is abdominal distention (your abdomen is swollen). There is vomiting. You have a temperature over 101.5 F. There is abdominal pain or discomfort that is severe or gets worse throughout the day. Diverticulosis Many people have small pouches in their colon called diverticulum. The diverticulum bulge outward through weak spots in the colon. You could have one or more of these pouches in the colon. The condition of having these pouches in the colon is called diverticulosis or diverticular disease. Diverticulosis is usually diagnosed by tests to evaluate something else. For example, you may have had a colonoscopy to screen for colon cancer when the diverticulosis was found. Most people with diverticulosis do not have any discomfort or problems. If symptoms develop, they may include mild cramps, bloating, and constipation. A complication of this condition is called diverticulitis. This is when the diverticulum become inflamed and infected. How to treat diverticulosis: Increasing the amount of fiber in the diet may reduce symptoms of diverticulosis and prevent complications such as diverticulitis (infected diverticuli). Fiber keeps stool soft and lowers pressure inside the colon so that bowel contents can move through easily. You should eat 20 to 35 grams of fiber each day. The table below shows the amount of fiber in some foods that you can easily add to your diet. Adding fiber slowly may decrease the bloating and fullness sometimes felt with an immediate high fiber diet. The doctor may also recommend taking a fiber product such as Citrucel or Metamucil once a day. In the past people with diverticulosis were to avoid nuts, corn, and seeds. This has not been found to be true. If you find that certain foods create cramping or bloating, avoid that food. Foods high in fiber include: Fresh fruits, fresh vegetables, legumes (beans), whole wheat bread, bran muffins or cereal, and nuts. See the table below for examples of high fiber foods. Remember, your goal is 20-35 grams per day. Amount of fiber in different foods Food Serving Grams of fiber Fruits Apple (with skin) 1 medium apple 4.4 Banana 1 medium banana 3.1 Oranges 1 orange 3.1 Prunes 1 cup, pitted 12.4 Juices Apple, unsweetened, w/added ascorbic acid 1 cup 0.5 Grapefruit, white, canned, sweetened 1 cup 0.2 Grape, unsweetened, w/added ascorbic acid 1 cup 0.5 Island 1 cup 0.7 Vegetables Cooked Green beans 1 cup 4.0 Carrots 1/2 cup sliced 2.3 Peas 1 cup 8.8 Potato (baked, with skin) 1 medium potato 3.8 Raw Meridian (with peel) 1 cucumber 1.5 Lettuce 1 cup shredded 0.5 Tomato 1 medium tomato 1.5 Spinach 1 cup 0.7 Legumes Baked beans, canned, no salt added 1 cup 13.9 Kidney beans, canned 1 cup 13.6 Hicks beans, canned 1 cup 11.6 Lentils, boiled 1 cup 15.6 Breads, pastas, flours Bran muffins 1 medium muffin 5.2 Oatmeal, cooked 1 cup 4.0 White bread 1 slice 0.6 Whole-wheat bread 1 slice 1.9 Pasta and rice, cooked Macaroni 1 cup 2.5 Rice, brown 1 cup 3.5 Rice, white 1 cup 0.6 Spaghetti (regular) 1 cup 2.5 Nuts Almonds 1/2 cup 8.7 Peanuts 1/2 cup 7.9 Chart from UpToDate 2012. SEEK IMMEDIATE MEDIC (more content not included)... Normal [facility] Progress Note-Physicianon Progress Note-Physician Patient: JESSENIA WING Age: 52 years Sex: Female : 1970 Associated Diagnoses: None Author: Munir Adams DO Postoperative Information Postoperative disposition: Postoperative disposition: To PACU. Anesthetic utilized: General. Health Status Allergies: Allergic Reactions (Selected) Severity Not Documented Seasonal ,dust, mold- Hayfever. Current medications: (Selected) Inpatient Medications Ordered Lactated Ringers IV Daniela 1000 mL 1,000 mL: 1,000 mL, IV, 100 mL/hr, Routine, Start date 02/05/23 13:32:00 EDT, 10 hour(s), Total volume (mL): 1,000, 106.5 kg, 2.22, m2 Phenergan 25 mg/mL Injection: 12.5 mg = 0.5 mL, Injection, IV Push, q2min PRN Other (see comment) for 2 dose(s), Stop date Limited # of times, Routine, Start date 02/05/23 13:32:00 EDT Sodium Chloride 0.9% IV Daniela 1000 mL 1,000 mL: 1,000 mL, IV, 20 mL/hr, Routine, Start date 02/05/23 6:43:00 EDT, 50 hour(s), Total volume (mL): 1,000 Zofran 4 mg/2 mL Injection: 4 mg = 2 mL, Injection, IV Push, Once PRN Nausea/Vomiting, Routine, Start date 02/05/23 13:32:00 EDT, 02/05/23 13:32:00 EDT Prescriptions Prescribed Zoloft 50 mg Tab: 75 mg = 1.5 tab(s), Oral, Daily, # 135 tab(s), Refills(s) 3, Pharmacy: [facility], 167, cm, 12/18/22 9:30:00 EDT, Height/Length Dosing, 106.5, kg, 12/18/22 9:30:00 EDT, Weight Dosing albuterol HFA 90 mcg/inh MDI: 2 puff(s), Inhalation, QID, 1 EA, Refill(s) 2, [facility], 167, cm, 05/25/20 16:49:00 EST, Height/Length Dosing, 112.5, kg, 05/25/20 16:49:00 EST, Weight Dosing fluticasone propionate 232 mcg/inh inhalation powder: 232 mcg, Inhalation, q12hr, Swallowed rather than inhaled rinse mouth and throat after use, # 1 EA, Refills(s) 5, Pharmacy: [place] [address], 167, cm, 10/25/22 14:36:00 EDT, Height/Length Dosing, 110.1, kg, 10/25/22 14:36:00 EDT, Weight Dosing... lisinopril 10 mg Tab: 10 mg = 1 tab(s), Oral, Daily, # 90 tab(s), Refills(s) 1, Pharmacy: [place] [address], 167, cm, 05/16/22 14:29:00 EST, Height/Length Dosing, 100.9, kg, 05/16/22 14:29:00 EST, Weight Dosing omeprazole 20 mg Cap-DR: 20 mg = 1 cap(s), Oral, Daily, # 90 cap(s), Refills(s) 3, Pharmacy: [facility], 167, cm, 12/18/22 9:30:00 EDT, Height/Length Dosing, 106.5, kg, 12/18/22 9:30:00 EDT, Weight Dosing omeprazole 40 mg Cap-DR: 40 mg = 1 cap(s), Oral, Daily, # 30 cap(s), Refills(s) 1, Pharmacy: [facility] 1985, 167, cm, 02/05/23 12:12:00 EDT, Height/Length Dosing, 106.5, kg, 02/05/23 12:12:00 EDT, Weight Dosing, Home Medications (6) Active albuterol HFA 90 mcg/inh MDI 2 puff(s), Inhalation, QID fluticasone propionate 232 mcg/inh inhalation powder 232 mcg, Inhalation, q12hr lisinopril 10 mg Tab 10 mg = 1 tab(s), Oral, Daily omeprazole 20 mg Cap-DR 20 mg = 1 cap(s), Oral, Daily omeprazole 40 mg Cap-DR 40 mg = 1 cap(s), Oral, Daily Zoloft 50 mg Tab 75 mg = 1.5 tab(s), Oral, Daily Problem list: All Problems Allergic rhinitis / SNOMED CT 677881449 / Confirmed Anemia / SNOMED CT 930174151 / Confirmed Anxiety / SNOMED CT 90416440 / Confirmed Breast cancer screening / SNOMED CT 418997341 / Confirmed Colon cancer screening / SNOMED CT 480335907 / Confirmed Dysphagia / SNOMED CT 16834824 / Confirmed Heartburn / SNOMED CT 78193803 / Confirmed History of left knee replacement / SNOMED CT 3360421696 / Confirmed HTN (hypertension) / SNOMED CT 0423813009 / Confirmed Medial meniscus tear / SNOMED CT 253266898 / Confirmed left Non-smoker / SNOMED CT 71776060 / Confirmed Normocytic anemia / SNOMED CT 011367497 / Confirmed Osteoarthritis / SNOMED CT 6456806167 / Confirmed left knee Tenderness of lymph node / SNOMED CT 823299565 / Confirmed Venous insufficiency / SNOMED CT 083860042 / Confirmed Resolved: BACTERIAL PNEUMONIA, UNSPECIFIED / ICD-9-CM 482.9 Resolved: Hypertension / SNOMED CT 1247844016 Resolved: Microcytosis / SNOMED CT 698520330 Resolved: None / SNOMED CT 423973682 Resolved: Screening for cardiovascular condition / SNOMED CT 416496700 Resolved: Ventral hernia / SNOMED CT 6264132128 Canceled: Blood pressure elevated without history of HTN / SNOMED CT 2212733571 Canceled: Bronchitis with wheezing / SNOMED CT 3260069344 Canceled: Obesity (BMI 30-39.9) / SNOMED CT 233531599 Physical Examination Vital Signs 02/05/2023 13:25 EDT Heart Rate Monitored 75 bpm bpm Respiratory Rate 18 br/min br/min SpO2 100 % % 02/05/2023 13:23 EDT Systolic Blood Pressure 181 mmHg mmHg Diastolic Blood Pressure 116 mmHg mmHg 02/05/2023 13:20 EDT Heart Rate Monitored 73 bpm bpm Respiratory Rate 18 br/min br/min Systolic Blood Pressure 166 mmHg mmHg Diastolic Blood Pressure 111 mmHg mmHg SpO2 100 % % 02/05/2023 13:19 EDT Systolic Blood Pressure 178 mmHg mmHg Diastolic Blood Pressure 115 mmHg mmHg 02/05/2023 13:15 EDT Heart Rate Monitored 87 bpm bpm Respiratory Rate 16 br/min br/min Systolic Blood Pressure 146 mmHg mmHg Diastolic Blood Pressure 118 mmH (more content not included)... Normal [facility] Comment on above: Result Comment: Elec tronically Signed By: Munir Adams DO\.br\Date and Time Signed: 02/05/23 13:37 EDT Progress Note-Physician Patient: JESSENIA WING MRN: [id number] Age: 52 years Sex: Female : 1970 Associated Diagnoses: None Author: Munir Adams DO Preoperative Information Anesthesia history: Patient history: None. Family history+: None. Anesthesia results Informed consent: Signed by patient. Including risks, benefits, and alternatives related to the: Anesthetic plan, Postoperative pain management plan. Re-evaluation prior to induction: Munir Adams DO. Health Status Allergies: Allergic Reactions (Selected) Severity Not Documented Seasonal ,dust, mold- Hayfever., Allergies (1) Active Reaction seasonal ,dust, mold hayfever Current medications: (Selected) Inpatient Medications Ordered Sodium Chloride 0.9% IV Daniela 1000 mL 1,000 mL: 1,000 mL, IV, 20 mL/hr, Routine, Start date 02/05/23 6:43:00 EDT, 50 hour(s), Total volume (mL): 1,000 Prescriptions Prescribed Zoloft 50 mg Tab: 75 mg = 1.5 tab(s), Oral, Daily, # 135 tab(s), Refills(s) 3, Pharmacy: [facility], 167, cm, 12/18/22 9:30:00 EDT, Height/Length Dosing, 106.5, kg, 12/18/22 9:30:00 EDT, Weight Dosing albuterol HFA 90 mcg/inh MDI: 2 puff(s), Inhalation, QID, 1 EA, Refill(s) 2, [facility], 167, cm, 05/25/20 16:49:00 EST, Height/Length Dosing, 112.5, kg, 05/25/20 16:49:00 EST, Weight Dosing fluticasone propionate 232 mcg/inh inhalation powder: 232 mcg, Inhalation, q12hr, Swallowed rather than inhaled rinse mouth and throat after use, # 1 EA, Refills(s) 5, Pharmacy: [facility], 167, cm, 10/25/22 14:36:00 EDT, Height/Length Dosing, 110.1, kg, 10/25/22 14:36:00 EDT, Weight Dosing... lisinopril 10 mg Tab: 10 mg = 1 tab(s), Oral, Daily, # 90 tab(s), Refills(s) 1, Pharmacy: [facility], 167, cm, 05/16/22 14:29:00 EST, Height/Length Dosing, 100.9, kg, 05/16/22 14:29:00 EST, Weight Dosing omeprazole 20 mg Cap-DR: 20 mg = 1 cap(s), Oral, Daily, # 90 cap(s), Refills(s) 3, Pharmacy: [facility], 167, cm, 12/18/22 9:30:00 EDT, Height/Length Dosing, 106.5, kg, 12/18/22 9:30:00 EDT, Weight Dosing, Home Medications (5) Active albuterol HFA 90 mcg/inh MDI 2 puff(s), Inhalation, QID fluticasone propionate 232 mcg/inh inhalation powder 232 mcg, Inhalation, q12hr lisinopril 10 mg Tab 10 mg = 1 tab(s), Oral, Daily omeprazole 20 mg Cap-DR 20 mg = 1 cap(s), Oral, Daily Zoloft 50 mg Tab 75 mg = 1.5 tab(s), Oral, Daily , Medications (1) Active Scheduled: (0) Continuous: (1) Sodium Chloride 0.9% 1,000 mL 1,000 mL, IV, 20 mL/hr PRN: (0) Problem list: All Problems Allergic rhinitis / SNOMED CT 673304858 / Confirmed Anemia / SNOMED CT 414374198 / Confirmed Anxiety / SNOMED CT 51054730 / Confirmed Breast cancer screening / SNOMED CT 533513365 / Confirmed Colon cancer screening / SNOMED CT 590175398 / Confirmed Dysphagia / SNOMED CT 34078605 / Confirmed Heartburn / SNOMED CT 76294345 / Confirmed History of left knee replacement / SNOMED CT 1374819385 / Confirmed HTN (hypertension) / SNOMED CT 8631734013 / Confirmed Medial meniscus tear / SNOMED CT 475215216 / Confirmed left Non-smoker / SNOMED CT 56452342 / Confirmed Normocytic anemia / SNOMED CT 066055965 / Confirmed Osteoarthritis / SNOMED CT 0211476135 / Confirmed left knee Tenderness of lymph node / SNOMED CT 397374770 / Confirmed Venous insufficiency / SNOMED CT 835720514 / Confirmed Resolved: BACTERIAL PNEUMONIA, UNSPECIFIED / ICD-9-CM 482.9 Resolved: Hypertension / SNOMED CT 5887174974 Resolved: Microcytosis / SNOMED CT 723184541 Resolved: None / SNOMED CT 583366035 Resolved: Screening for cardiovascular condition / SNOMED CT 474449264 Resolved: Ventral hernia / SNOMED CT 0195010504 Canceled: Blood pressure elevated without history of HTN / SNOMED CT 6284049484 Canceled: Bronchitis with wheezing / SNOMED CT 6268845054 Canceled: Obesity (BMI 30-39.9) / SNOMED CT 228087400, Active Problems (15) Allergic rhinitis Anemia Anxiety Breast cancer screening Colon cancer screening Dysphagia Heartburn History of left knee replacement HTN (hypertension) Medial meniscus tear Non-smoker Normocytic anemia Osteoarthritis Tenderness of lymph node Venous insufficiency Histories Past Medical History: Resolved None (498748463): Resolved. Ventral hernia (0997024858): Resolved. BACTERIAL PNEUMONIA, UNSPECIFIED (482.9): Resolved. Screening for cardiovascular condition (516887602): Resolved. Hypertension (8863218519): Resolved. Microcytosis (023217783): Resolved. Family History: Depression Child Depression Mother () Bipolar Sister Schizophrenia Brother Procedure history: Sclerotherapy ([id number]) on 09/02/2022 at 51 Years. Revision (864423220) on 12/20/2020 at 50 Years. Comments: 12/22/2020 13:37 EDT - Marcelina Powell left knee arthroplasty Sclerotherapy ([id number]) on 10/05/2020 at 49 Years. left TKR on 11/18/2016 at 45 Years. knee arthr (more content not included)... Normal [facility] Comment on above: Result Comment: Elec tronically Signed By: Munir Adams DO.br\Date and Time Signed: 02/05/23 12:26 EDT CNOVon 12-25-2022 CNOV Office Visit (ORTHCO) JESSENIA WING ([id number]) 1970 F Date Time Provider Department 12/25/22 10:30 AM MARKO CORDOVA During your visit today, we recorded the following information about you: Pulse Blood pressure Weight Height 60/minute 112/78 106.1 kg 1.676 m Marko Cordova PA-C 12/25/2022 12:05 PM Signed CONSULT ORTHOPAEDIC: KNEE PRIMARY CARE PHYSICIAN: No primary care provider on file. 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 Past surgical history of left total knee arthroplasty on 11/18/[address] Pereira followed by left knee revision due to aseptic loosening on 12/20/[address] Meredith. No complaints with her left knee. Complaining of 6 months of right knee pain primarily to the posterior and medial aspect. Pain is intermittent and mostly present at the end of the day after continued ambulation or excessive exercise. Often bicycles with no issues. Intermittently take Motrin with no relief. Received a gel shot to her left knee before her initial total knee arthroplasty but has never received any gel shot or cortisone shot to the right knee. Patient does have absence of 1 kidney and does not like to take too many nonsteroidal anti-inflammatory medications. After discussion with Jessenia Wing, continued non-operative management of physical therapy and injection(s) was chosen. The patient currently has had progressive symptoms. Risks and benefits of cortisone injection were discussed with the patient as well as potential side effects. Allergies verified. Patient agrees to cortisone injection of the right knee. Time out was performed. Injection site marked. Aspiration was not performed. Injection performed under sterile technique without any difficulties. Patient tolerated procedure well and was able to ambulate without difficulty after injection. Advised patient to rest for the next 24 hours. Advised patient to return to ED and alert our office with any signs/symptoms of infection including but not limited to fever, pain out of proportion with knee ROM, hot/red/swollen knee joint. Large Joint Arthro/Inj: R knee joint Informed Consent Consent Obtained: Verbal [place] Protocol A moment to CARE was completed. SIGN IN Personnel directly involved with the procedure wore the appropriate PPE. Special Equipment: N/A Patient/Surrogate Stated/Verified: Patient name, Date of , Relevant allergies and Intended procedure TIME OUT Intended patient and procedure match the source document(s). Consent documented and matches the intended procedure. Relevant labs, photos, and/or imaging studies have been reviewed. Correct side/site marked and visible. Medications required for procedure verified. Fire risk assessed and interventions discussed. No implant(s) inserted. 12/25/2022 11:07 AM The procedure site was prepped in the usual sterile fashion. Site: R knee joint Medications: 12 mg betamethasone acetate-betamethason e sodium phosphate 6 mg/mL Anesthetics: 5 mL lidocaine (PF) 10 mg/mL (1 %) Outcome: Tolerated well, no immediate complications Post-injection instructions were reviewed with the patient and the patient voiced understanding of these instructions. SIGN OUT All instruments, equipment, possible retained foreign bodies accounted for. Progressive Symptoms Include: Pain worsened by weight bearing. The patient has been ordered: Physical therapy CONSULTS: Patient does not require consults for optimization at this time. ACTIVE PROBLEM LIST S/P Repair of Recurrent Ventral Hernia Muscular Abdominal Pain in Right Flank Primary Osteoarthritis of Left Knee Patellofemoral Syndrome of Left Knee Asthma Obesity Oa (Osteoarthritis) of Knee Status Post Total Left Knee Replacement Hypertension Congenital Absence of One Kidney Obesity, Class II, Bmi 35-39.9 S/P Revision of Total Knee, Left SUBJECTIVE CHIEF COMPLAINT: Knee Pain HPI: Jessenia Wing is a 52 year old patient here for evaluation and management of right knee pain. Jessenia Wing has had progressive problems with the knee(s) multiple times a day over the past 6 month(s) interfering with activities which include exercise and walking. The problem began limiting activities 1-6 months ago. Currently the pain in the joint is rated at 4 out of 10 with minimal activity. The pain is intermittent and is located along the inside aspect and in the back. The pain is described as aching and stiffness. Relieving factors include no relieving factors. There is no specific incident that brought about this pain. Jessenia Wing has no additional complaints. FUNCTIONAL STATUS: Participate in moderate recreational acti (more content not included)... Normal [facility] XR KNEE 4V AP/PA BOTH+LAT/ME R RTon 12-25-2022 XR KNEE 4V AP/PA BOTH+LAT/CARON RT * * *Final Report* * * DATE OF EXAM: Dec 25 2022 10:23AM CRX [id number] - XR KNEE 4V AP/PA BOTH+LAT/CARON RT / PROCEDURE REASON: Pain * * * * Physician Interpretation * * * * EXAMINATION: XR KNEE 4V AP/PA BOTH+LAT/CARON RT PATIENT/TECHNOLOGIST PROVIDED HISTORY: RIGHT KNEE PAIN. TKA CONSULT CLINICAL INFORMATION ( PROVIDED BY ORDERING CLINICIAN) : Pain TECHNIQUE: XR KNEE 4V AP/PA BOTH+LAT/CARON RT Laterality: RIGHT Number of different views (projections): 4 M: XB_1 COMPARISON: None RESULT: No acute fracture or dislocation. Tricompartment osteophytes. Severe medial compartment joint space narrowing with [id number] contact. Small joint effusion. Venous varicosities are noted in the soft tissues. Left total knee arthroplasty is present. IMPRESSION: Advanced medial compartment predominant osteoarthritis of the right knee. Casting Technician: PSCB Transcribe Date/Time: Dec 25 2022 11:24A Dictated by : KATERINE BOWSER MD This examination was interpreted and the report reviewed and electronically signed by: KATERINE BOWSER MD on Dec 25 2022 11:24AM EST [id number] CN Normal [facility] Consent for Procedure/Surger yon 12-19-2022 Consent for Procedure/Surgery [id number] Normal [facility] Gastroenterology Office/Clin ic Noteon 12-19-2022 Gastroenterology Office/Clinic Note Chief Complaint dysphagia HPI Staff Patient is a 52 year old female who was referred by Saira for dysphagia. Was started on Omeprazole 20mg by PCP which has helped improve symptoms but not resolved. No previous EGD/colonoscopy. History of Present Illness Jessenia Wing is a 52-year-old white female who was referred to me by Dr. Chávez for dysphagia and heartburn. The patient reports that since she started on omeprazole 20 mg approximately 2 months, her dysphagia symptoms are less frequent. She has only had 1 episode since starting the omeprazole 20 mg. It seemed like every time she would eat, she was choking. The dysphagia is mainly to solid food. This issue started approximately 1 year ago and was daily but has gotten severe. Patient denies any weight loss, hematochezia, melena, nausea, or vomiting. She denies any family history of esophageal or colon cancer. She has never had a colonoscopy. She has seasonal allergies. Review of Systems PHQ Score Initial Depression Screen Score: 0 Constitutional: No fever, no chills, no sweats, no weakness Skin: No Jaundice, no rash, no lesions, no petechiae ENMT: no ear pain, no sore throat, no congestion, no hoarseness Respiratory: no shortness of breath, no cough, no orthopnea, no wheezing Cardiovascular: no chest pain, no palpitations, no edema Gastrointestinal: no nausea, no vomiting, no diarrhea, no constipation, no GI bleeding, no abdominal pain, no dysphagia, no heartburn. Positive for dysphagia and heartburn. Genitourinary: No dysuria, no hematuria, no discharge, no pain Musculoskeletal: no back pain, no trauma Neurologic: no numbness, no sleeping problems Additional ROS info: Except as noted in the above Review of Systems and in the History of Present Illness all other systems have been reviewed and are negative or noncontributory. Physical Exam Vitals & Measurements HR: 66(Peripheral) RR: 16 BP: 121/85 SpO2: 96% HT: 66 in HT: 167 cm WT: 106.5 kg WT: 234.3 lb BMI: 38.19 Constitutional: Appearance: well developed Skin: Inspection: no rashes, ulcers, icterus, or telangiectasias. Eyes: Conjunctivae/lids: normal conjunctivae and lids. ENMT: Hearing: within normal limits. Lips/Teeth/Gums: normal oral mucosa Neck: Neck: normal motion, central trachea Respiratory: Percussion: thorax normoresonant. Auscultation: normal breath sounds; no rubs, wheezes, rale or rhonchi. Cardiovascular: Auscultation: normal rhythm, S1 and S2; no rubs, murmurs or gallop. Peripheral: no edema Gastrointestinal/Abd omen: Abdomen: normal consistency and bowel sounds; no tenderness or masses. Liver/Spleen: normal size and consistency, not palpable. Rectal: deferred Musculoskeletal: Gait/station: normal gait Assessment/Plan 1. Dysphagia (R13.10: Dysphagia, unspecified) The patient reports a chronic history of dysphagia for almost 1 year, mainly for solids. It has been worsening until she was recently started on omeprazole. She reported that her dysphagia symptoms are less frequent while on omeprazole. She has no family history of esophageal or stomach cancer. I do recommend that she continue with omeprazole, take it 30 minutes before breakfast, and proceed with an EGD. Differential includes esophagitis, esophageal ulcer. She also has a history of allergic rhinitis which increased the chance of eosinophilic esophagitis, and she might also have Schatzki ring. 2. Heartburn (R12: Heartburn) This is fairly controlled with omeprazole which was started a few months ago. She was advised to take it daily 30 minutes before breakfast. 3. Colon cancer screening (Z12.11: Encounter for screening for malignant neoplasm of colon) We will proceed with her first screening colonoscopy. She has no family history of colon cancer. 4. BMI 38.0-38.9,adult (Z68.38: Body mass index [BMI] 38.0-38.9, adult) Her BMI is around 38. She was advised to lose 10 percent of her body weight. Portions of this record may have been created with voice recognition artificial intelligence software, specifically ArthaYantra, Corduro and or Errund. Substitutions may have occurred due to the inherent limitations of voice recognition and artificial intelligence software. ATTESTATION: Documentation services were performed after patient or guardian consented to allow [employer] to record this visit. STEFFI underwriting support specialist and provider reviewed before signing. STEFFI: Romero Rosario. Follow-up No qualifying data available Problem List/Past Medical History Ongoing Allergic rhinitis Anemia Breast cancer screening Colon cancer screening Dysphagia Heartburn History of left knee replacement Non-smoker Normocytic anemia Tenderness of lymph node Venous insufficiency Historical BACTERIAL PNEUMONIA, UNSPECIFIED Hypertension Microcytosis None Screening for cardiovascular condition Ventral hernia Procedure/Surgical History Sclerotherapy (09/02/2022), Revision ( (more content not included)... Normal [facility] Comment on above: Result Comment: Elec tronically Signed By: Mayco Mauro\.br\Date and Time Signed: 12/18/22 13:34 EDT\.br\Electronically Co-Signed By: Keith CHUNG MD\.br\Date and Time Co-Signed: 12/19/22 09:04 EDT Ambulatory Visit Summaryon 0 12-18-2022 Ambulatory Visit Summary JESSENIA WING :1970 Visit Date:12/18/2022 Ambulatory Visit Instructions Your Diagnosis Dysphagia Heartburn Colon cancer screening BMI 38.0-38.9,adult Your Care Team Attending Physician - Keith CHUNG MD Primary Care Physician - Pb BAUMAN DO This Is Your Medications List Contact prescribing physician if questions or concerns albuterol (albuterol HFA 90 mcg/inh MDI) fluticasone (fluticasone propionate 232 mcg/inh inhalation powder) lisinopril (lisinopril 10 mg Tab) omeprazole (omeprazole 20 mg Cap-DR) sertraline (Zoloft 50 mg Tab) Procedures Performed Sclerotherapy (09/02/2022), Revision (12/20/2020), Sclerotherapy (10/05/2020), left TKR (11/18/2016), knee arthroscope with partial medial meniscectomy and excision of loose body (08/18/2015), section, Cholecystectomy, incisional hernia repair. Discharge Vitals Heart Rate (Peripheral) 66 Respiratory Rate 16 Blood Pressure 121/85 Height 167 cm Height 66 in Weight 106.5 kg Weight 234.3 lb BMI 38.19 Medications What How Much When Instructions Unchanged albuterol (albuterol HFA 90 mcg/ inh MDI) 2 Puffs Inhalation 4 times a day Contact prescribing physician if questions or concerns Unchanged fluticasone (fluticasone propionate 232 mcg/ inh inhalation powder) 232 Microgram Inhalation Every 12 hours Swallowed rather than inhaled rinse mouth and throat after use Contact prescribing physician if questions or concerns Unchanged lisinopril (lisinopril 10 mg Tab) 1 Tablets By Mouth Every day Contact prescribing physician if questions or concerns Unchanged omeprazole (omeprazole 20 mg Cap-DR) 1 Capsules By Mouth Every day Contact prescribing physician if questions or concerns Unchanged sertraline (Zoloft 50 mg Tab) 1.5 Tablets By Mouth Every day Contact prescribing physician if questions or concerns Allergies seasonal ,dust, mold (hayfever) Problems Ongoing - Any problem that you are currently receiving treatment for. Allergic rhinitis Anemia Breast cancer screening Colon cancer screening Dysphagia Heartburn History of left knee replacement Non-smoker Normocytic anemia Tenderness of lymph node Venous insufficiency Historical - Any problem that you are no longer receiving treatment for. BACTERIAL PNEUMONIA, UNSPECIFIED Hypertension Microcytosis None Screening for cardiovascular condition Ventral hernia Normal [facility] Consent for Treatmenton 12-05 Consent for Treatment [id number] #[id number] Normal [facility] Office/Clini c Noteon 12-16-2022 Family Medicine Office/Clinic Note Chief Complaint EST- Calf pain HPI Staff Jessenia is a 52 year old female who presents for calf pain. Onset- 4-5 days ago Location- LT calf Pain level- 5/10 does go up to 8/10 when walking Swelling- yes Bruising- yes Warmth- no Injury/ fall- no ROM- well Treatment- yes- Motrin Patient is a 52-year-old female complaint of left calf pain for the last 5 days. She denies any injury or inciting event. She denies any history of previous DVT or any other type of blood clot. She denies any recent air travel. She has had 2 knee surgeries on the left knee however these occurred quite some time ago. She does state that her daughter has a history of a blood clot however this was when she was 1 month old. She denies any blood disorders. No shortness of breath or difficulty breathing patient speaking in full sentences. Denies any chest pain. States sitting makes it feel better motion makes it worse. Is exquisitely tender to touch. Full range of motion intact. She has no other complaints or concerns. History of Present Illness Patient is a 52-year-old female complaint of left calf pain for the last 5 days. She denies any injury or inciting event. She denies any history of previous DVT or any other type of blood clot. She denies any recent air travel. She has had 2 knee surgeries on the left knee however these occurred quite some time ago. She does state that her daughter has a history of a blood clot however this was when she was 1 month old. She denies any blood disorders. No shortness of breath or difficulty breathing patient speaking in full sentences. Denies any chest pain. States sitting makes it feel better motion makes it worse. Is exquisitely tender to touch. Full range of motion intact. She has no other complaints or concerns. States left LE with edema. Review of Systems PHQ Score Initial Depression Screen Score: 0 Physical Exam Vitals & Measurements T: 36.7 ?C(Oral) HR: 58(Peripheral) BP: 114/82 SpO2: 98% HT: 66 in HT: 167 cm WT: 106.4 kg WT: 234.08 lb BMI: 38.15 General: Well developed, well nourished, in no acute distress, mildly anxious Head: Normocephalic/atraum atic Chest: No chest wall deformity, no chest wall tenderness Lungs: Normal respiratory effort and clear to auscultation throughout, no wheezing, no rales Cardio: regular rate and rhythm, no murmur Pulses: Normal capillary refill equal in bilateral lower extremities Musculoskeletal: No deformity or scoliosis noted. Normal range of motion. Joints normal. No erythema, edema, effusion, or ecchymosis Extremity: Pulses equal in bilateral lower extremities. There is no edema to the right lower extremity. There is unilateral edema to the left calf skin is taut the calf is tender throughout, Rosario test is negative, there are some superficial vessels that are nontender to palpation full range of motion intact to the left knee left ankle and toes of the left foot cap refill less than 3 seconds to the toes of the left foot Neurologic: Grossly normal Skin: Patient with dry erythematous eczema rash to the right dickerson area Mental Status: Alert and oriented x3. Normal mood and affect Assessment/Plan 1. Pain of left calf (M79.662: Pain in left lower leg) Patient seen in the [facility] care. Following exam discussed exam is concerning for possible DVT therefore a ultrasound was ordered for the patient scheduled for 2 PM today. We also discussed going to the ER directly however pt preferred out patient US. We will be called notified of the results as soon as they are available. We have discussed that she will be sent to the ER if there is a clot. Have discussed if us is negative plan is time rest light stretching avoid any activities that increase pain. Again if negative can alternate Motrin and Tylenol for discomfort. 2. Edema of left lower leg (R60.0: Localized edema) See above plan 3. BMI 38.0-38.9,adult (Z68.38: Body mass index [BMI] 38.0-38.9, adult) The standard range for ages 18 and older is >=18.5 and < 25 kg/m2. Your BMI today was above this range, this falls in the overweight to obese category and there are medical benefits to weight loss. We can offer counselling, referral, and/or medical support in addressing this problem. Your BMI and weight management will be followed at subsequent visits. Follow-up With When Contact Information Pb BAUMAN DO, [facility] [address] [place] [address]- Additional Instructions: Patient Education BMI for Adults Edema, [id number] Musculoskeletal Pain Problem List/Past Medical History Ongoing Allergic rhinitis Anemia Breast cancer screening Dysphagia History of left knee replacement Non-smoker Normocytic anemia Tenderness of lymph node Venous insufficiency Historical BACTERIAL PNEUMONIA, UNSPECIFIED Hypertension Microcytosis None Screening for cardiovascular condition Ventral hernia Procedure/Surgical History Sclerotherapy (09/02/2022), Revision (12/20/2020), Scl (more content not included)... Normal [facility] Comment on above: Result Comment: Elec tronically Signed By: Sri PUGA CNP\.miki\Date and Time Signed: 12/16/22 11:49 EDT Patient Educationon 12-17-19 Patient Education Nutrition BMI for Adults What is BMI? Body mass index (BMI) is a number that is calculated from a person's weight and height. BMI can help estimate how much of a person's weight is composed of fat. BMI does not measure body fat directly. Rather, it is an alternative to procedures that directly measure body fat, which can be difficult and expensive. BMI can help identify people who may be at higher risk for certain medical problems. What are BMI measurements used for? BMI is used as a screening tool to identify possible weight problems. It helps determine whether a person is obese, overweight, a healthy weight, or underweight. BMI is useful for: ? Identifying a weight problem that may be related to a medical condition or may increase the risk for medical problems. ? Promoting changes, such as changes in diet and exercise, to help reach a healthy weight. BMI screening can be repeated to see if these changes are working. How is BMI calculated? BMI involves measuring your weight in relation to your height. Both height and weight are measured, and the BMI is calculated from those numbers. This can be done either in [place] or metric measurements. Note that charts and online BMI calculators are available to help you find your BMI quickly and easily without having to do these calculations yourself. To calculate your BMI in [place] measurements: 1. Measure your weight in pounds (lb). 2. Multiply the number of pounds by 703. ? For example, for a person who weighs 180 lb, multiply that number by 703, which equals 126,540. 3. Measure your height in inches. Then multiply that number by itself to get a measurement called inches squared. ? For example, for a person who is 70 inches tall, the inches squared measurement is 70 inches x 70 inches, which equals 4,900 inches squared. 4. Divide the total from step 2 (number of lb x 703) by the total from step 3 (inches squared): 126,540 ? 4,900 = 25.8. This is your BMI. To calculate your BMI in metric measurements: 1. Measure your weight in kilograms (kg). 2. Measure your height in meters (m). Then multiply that number by itself to get a measurement called meters squared. ? For example, for a person who is 1.75 m tall, the meters squared measurement is 1.75 m x 1.75 m, which is equal to 3.1 meters squared. 3. Divide the number of kilograms (your weight) by the meters squared number. In this example: 70 ? 3.1 = 22.6. This is your BMI. What do the results mean? BMI charts are used to identify whether you are underweight, normal weight, overweight, or obese. The following guidelines will be used: ? Underweight: BMI less than 18.5. ? Normal weight: BMI between 18.5 and 24.9. ? Overweight: BMI between 25 and 29.9. ? Obese: BMI of 30 or above. Keep these notes in mind: ? Weight includes both fat and muscle, so someone with a muscular build, such as an athlete, may have a BMI that is higher than 24.9. In cases like these, BMI is not an accurate measure of body fat. ? To determine if excess body fat is the cause of a BMI of 25 or higher, further assessments may need to be done by a health care provider. ? BMI is usually interpreted in the same way for men and women. Where to find more information For more information about BMI, including tools to quickly calculate your BMI, go to these websites: ? Centers for Disease Control and Prevention: www.cdc.gov ? [place] Heart Association: www.heart.org ? National Heart, Lung, and Blood [place]: www.nhlbi.nih.gov Summary ? Body mass index (BMI) is a number that is calculated from a person's weight and height. ? BMI may help estimate how much of a person's weight is composed of fat. BMI can help identify those who may be at higher risk for certain medical problems. ? BMI can be measured using [place] measurements or metric measurements. ? BMI charts are used to identify whether you are underweight, normal weight, overweight, or obese. This information is not intended to replace advice given to you by your health care provider. Make sure you discuss any questions you have with your health care provider. Document Revised: 03/15/2020 Document Reviewed: 01/21/2020 [employer] Patient Education ? 2022 [place]. Obstetrics and Gynecology Edema Edema is when you have too much fluid in your body or under your skin. Edema may make your legs, feet, and ankles swell. Swelling often happens in looser tissues, such as around your eyes. This is a common condition. It gets more common as you get older. There are many possible causes of edema. These include: ? Eating too much salt (sodium). ? Being on your feet or sitting for a long time. ? Certain medical conditions, such as: ? . ? Heart failure. ? Liver disease. ? Kidney disease. ? Cancer. Hot weather may make edema worse. Edema is usually painless. Your skin may look swollen or shiny. (more content not included)... Normal [facility] US LE Venous Duplex Lefton 0 12-16-2022 LE Venous Duplex Left Exam Date/Time: 12/16/2022 14:28 EDT Reason for Exam: Pain in left lower leg;Leg pain Report IMPRESSION: NO EVIDENCE OF VENOUS THROMBOSIS INVOLVING VISUALIZED DEEP VEINS OF THE LEFT LEG. CLINICAL HISTORY: Leg pain, Pain in left lower leg. COMMENT: On the left, the external iliac vein, greater saphenous vein, common femoral vein, deep femoral vein, femoral vein, and popliteal vein demonstrate spontaneous phasic venous flow, with augmentation, non-pulsatility, and compressibility every 2 cm. The left posterior tibial and peroneal veins of the deep venous system compress. The contralateral right common femoral vein demonstrates spontaneous phasic venous flow. Ordering Provider: , FINAL REPORT Dictated: 12/16/2022 2:35 pm Giovanni Tolentino M.D. Signed (Electronic Signature): 12/16/2022 2:35 pm Signed by: Giovanni Tolentino M.D. Transcribed by: ANDRAE Technologist: MYLA Connell [facility] Medicine Office/Clini c Noteon 11-29-2022 Family Medicine Office/Clinic Note HPI Staff Jessenia is a 51 year old female who presents for a 1 month follow up. Pt was referred to GI for evaluation/managemen t, she is scheduled in December. She was also started on Omeprazole 20mg QD and Fluticasone propionate 232mcg/inh BID. Today pt reports she is doing okay, her symptoms have been a little better than before however they have not subsided altogether. History of Present Illness I have reviewed and verified the staff HPI to be accurate for this encounter. Patient was started on medication fluticasone inhalation as well as omeprazole during last visit for issues with dysphagia that resembled possible EOE. Patient states she has only had 1 episode since last being seen which was approximately 1 week ago while eating a bagel. Patient has had no other issues and continues to take the medication as prescribed she does have follow-up with GI as noted above. Denies any other acute symptoms or concerns in office today Review of Systems PHQ Score Initial Depression Screen Score: 0 ROS - Provider Constitutional: fever no, chills no, sweats no, weakness no ENMT: ear pain no, ear drainage no, sore throat no, nasal congestion no , nasal drainage no hoarseness no Respiratory: chest discomfort no, shortness of breath no, cough no, orthopnea no, wheezing no Cardiovascular: chest pain no, palpitations no, edema no Gastrointestinal: nausea no, vomiting no, diarrhea no Neurologic: headache no, dizziness no, numbness/tingling no, weakness no Physical Exam Vitals & Measurements HR: 84(Peripheral) BP: 134/80 SpO2: 97% HT: 66 in HT: 167 cm WT: 109.9 kg WT: 241.78 lb BMI: 39.41 General: Well developed, well nourished, in no acute distress Ears: No deformity or lesion of external ear. Canals and TM appear normal bilaterally. TM's intact, not inflamed, with normal light reflex. Hearing grossly normal to conversational speech Nose: No deformity, discharge, inflammation, or lesions Mouth: Mucous membranes moist. Normal oropharynx, and posterior pharynx without lesions or exudates. Tongue normal Neck: Neck supple. No masses or palpable cervical nodes. Trachea midline. Thyroid without nodules, masses, tenderness, or enlargement Lungs: Normal respiratory effort and clear to auscultation Cardio: Regular rate and rhythm, normal S1 and S2, no murmur, no rub Extremity: No clubbing, cyanosis, edema, or deformity, with normal ROM in both upper and lower bilateral extremities Neurologic: Grossly normal Skin: No rashes, ulcerations, or suspicious lesions Mental Status: Alert and oriented x3. Normal mood and affect Assessment/Plan 1. Dysphagia (R13.10: Dysphagia, unspecified) Improving, continue on medications as prescribed 2. BMI 39.0-39.9,adult (Z68.39: Body mass index [BMI] 39.0-39.9, adult) Education attached on health risks of obesity and discusses healthy, balanced diet low in sugar, fat, carbs and exercise regimen Follow-up With When Contact Information ANA CHÁVEZ CNP [address] [place] [address] Additional Instructions: Patient Education Dysphagia Exercising to Lose Weight Budget-Friendly Healthy Eating BMI for Adults Problem List/Past Medical History Ongoing Allergic rhinitis Anemia Breast cancer screening Dysphagia History of left knee replacement Non-smoker Normocytic anemia Tenderness of lymph node Venous insufficiency Historical BACTERIAL PNEUMONIA, UNSPECIFIED Hypertension Microcytosis None Screening for cardiovascular condition Ventral hernia Procedure/Surgical History Sclerotherapy (09/02/2022), Revision (12/20/2020), Sclerotherapy (10/05/2020), left TKR (11/18/2016), knee arthroscope with partial medial meniscectomy and excision of loose body (08/18/2015), section, Cholecystectomy, incisional hernia repair. Medications albuterol HFA 90 mcg/inh MDI, 2 puff(s), Inhalation, QID, 2 refills fluticasone propionate 232 mcg/inh inhalation powder, 232 mcg, Inhalation, q12hr, 5 refills lisinopril 10 mg Tab, 10 mg= 1 tab(s), Oral, Daily, 1 refills omeprazole 20 mg Cap-DR, 20 mg= 1 cap(s), Oral, Daily Zoloft 50 mg Tab, 75 mg= 1.5 tab(s), Oral, Daily, 2 refills Allergies seasonal ,dust, mold (hayfever) Social History Alcohol - Low Risk, 11/22/2022 1-2 times per month, Household alcohol concerns: No., 11/22/2022 Substance Abuse - Denies Substance Abuse, 01/21/2011 Tobacco - No Risk, 10/25/2022 Never (less than 100 in lifetime) Tobacco Use:. Never Smokeless Tobacco Use:. Household tobacco concerns: No., 11/22/2022 Never (less than 100 in lifetime) Tobacco Use:. Never Smokeless Tobacco Use:. Household tobacco concerns: No., 11/03/2022 Never (less than 100 in lifetime) Tobacco Use:. Never Smokeless Tobacco Use:. Cigarettes, 10/25/2022 Family History Bipolar: Sister. Depression: Mother. Depression: Child. Schizophrenia: Brother. Immunizations Vaccine Date Status influenza virus vaccine, inactivated 03/12/2022 Recorded SARS (more content not included)... Normal [facility] Comment on above: Result Comment: Elec tronically Signed By: ANA CHÁVEZ CNP\.br\Date and Time Signed: 11/28/22 22:37 EDT Patient Educationon 11-30-19 Patient Education ENT Dysphagia Dysphagia is trouble swallowing. This condition occurs when solids and liquids stick in a person's throat on the way down to the stomach, or when food takes longer to get to the stomach than usual. You may have problems swallowing food, liquids, or both. You may also have pain while trying to swallow. It may take you more time and effort to swallow something. What are the causes? This condition may be caused by: ? Muscle problems. These may make it difficult for you to move food and liquids through the esophagus, which is the tube that connects your mouth to your stomach. ? Blockages. You may have ulcers, scar tissue, or inflammation that blocks the normal passage of food and liquids. Causes of these problems include: ? Acid reflux from your stomach into your esophagus (gastroesophageal reflux). ? Infections. ? Radiation treatment for cancer. ? Medicines taken without enough fluids to wash them down into your stomach. ? Stroke. This can affect the nerves and make it difficult to swallow. ? Nerve problems. These prevent signals from being sent to the muscles of your esophagus to squeeze (contract) and move what you swallow down to your stomach. ? Globus pharyngeus. This is a common problem that involves a feeling like something is stuck in your throat or a sense of trouble with swallowing, even though nothing is wrong with the swallowing passages. ? Certain conditions, such as cerebral palsy or Parkinson's disease. What are the signs or symptoms? Common symptoms of this condition include: ? A feeling that solids or liquids are stuck in your throat on the way down to the stomach. ? Pain while swallowing. ? Coughing or gagging while trying to swallow. Other symptoms include: ? Food moving back from your stomach to your mouth (regurgitation). ? Noises coming from your throat. ? Chest discomfort when swallowing. ? A feeling of fullness when swallowing. ? Drooling, especially when the throat is blocked. ? Heartburn. How is this diagnosed? This condition may be diagnosed by: ? Barium swallow X-ray. In this test, you will swallow a white liquid that sticks to the inside of your esophagus. X-ray images are then taken. ? Endoscopy. In this test, a flexible telescope is inserted down your throat to look at your esophagus and your stomach. ? CT scans or an MRI. How is this treated? Treatment for dysphagia depends on the cause of this condition: ? If the dysphagia is caused by acid reflux or infection, medicines may be used. These may include antibiotics or heartburn medicines. ? If the dysphagia is caused by problems with the muscles, swallowing therapy may be used to help you strengthen your swallowing muscles. You may have to do specific exercises to strengthen the muscles or stretch them. ? If the dysphagia is caused by a blockage or mass, procedures to remove the blockage may be done. You may need surgery and a feeding tube. You may need to make diet changes. Ask your health care provider for specific instructions. Follow these instructions at home: Medicines ? Take [id number]-[id number] and prescription medicines only as told by your health care provider. ? If you were prescribed an antibiotic medicine, take it as told by your health care provider. Do not stop taking the antibiotic even if you start to feel better. Eating and drinking ? Make any diet changes as told by your health care provider. ? Work with a diet and nutrition technician (dietitian) to create an eating plan that will help you get the nutrients you need in order to stay healthy. ? Eat soft foods that are easier to swallow. ? Cut your food into small pieces and eat slowly. Take small bites. ? Eat and drink only when you are sitting upright. ? Do not drink alcohol or caffeine. If you need help quitting, ask your health care provider. General instructions ? Check your weight every day to make sure you are not losing weight. ? Do not use any products that contain nicotine or tobacco. These products include cigarettes, chewing tobacco, and vaping devices, such as e-cigarettes. If you need help quitting, ask your health care provider. ? Keep all follow-up visits. This is important. Contact a health care provider if: ? You lose weight because you cannot swallow. ? You cough when you drink liquids. ? You cough up partially digested food. Get help right away if: ? You cannot swallow your saliva. ? You have shortness of breath, a fever, or both. ? Your voice is hoarse and you have trouble swallowing. These symptoms may represent a serious problem that is an emergency. Do not wait to see if the symptoms will go away. Get medical help right away. Call your local emergency services (911 in the [place] Do not drive yourself to the hospital. Summary ? Dysphagia is trouble swallowing. This condition occurs when solids and liquids stick in a person's throa (more content not included)... Normal [facility] Ambulatory Visit Summaryon 0 11-22-2022 Ambulatory Visit Summary JESSENIA WING :1970 Visit Date:11/22/2022 Ambulatory Visit Instructions Your Diagnosis BMI 39.0-39.9,adult Your Care Team Attending Physician - ANA CHÁVEZ CNP Primary Care Physician - Pb BAUMAN DO This Is Your Medications List albuterol (Albuterol (Eqv-ProAir HFA) 90 mcg/inh inhalation aerosol) albuterol (albuterol HFA 90 mcg/inh MDI) fluticasone (fluticasone propionate 232 mcg/inh inhalation powder) lisinopril (lisinopril 10 mg Tab) omeprazole (omeprazole 20 mg Cap-DR) sertraline (Zoloft 50 mg Tab) Procedures Performed Sclerotherapy (09/02/2022), Revision (12/20/2020), Sclerotherapy (10/05/2020), left TKR (11/18/2016), knee arthroscope with partial medial meniscectomy and excision of loose body (08/18/2015), section, Cholecystectomy, incisional hernia repair. Discharge Vitals Heart Rate (Peripheral) 84 Blood Pressure 134/80 Height 167 cm Height 66 in Weight 109.9 kg Weight 241.78 lb BMI 39.41 What to do next Scheduled Follow-Up Appointments Friday 9:30 AM EDT With: Keith CHUNG MD Where: [facility] Ambulatory Visit Summaryon 0 11-03-2022 Ambulatory Visit Summary JESSENIA WING :1970 Visit Date:11/03/2022 Ambulatory Visit Instructions Your Diagnosis Acute viral bronchitis BMI 38.0-38.9,adult Your Care Team Attending Physician - DIONI Scott APRN, Kimmy Cali Primary Care Physician - Pb BAUMAN DO This Is Your Medications List albuterol (Albuterol (Eqv-ProAir HFA) 90 mcg/inh inhalation aerosol) benzonatate (benzonatate 100 mg Cap) methylPREDNISolone (Medrol 4 mg Tab) Contact prescribing physician if questions or concerns albuterol (albuterol HFA 90 mcg/inh MDI) fluticasone (fluticasone propionate 232 mcg/inh inhalation powder) lisinopril (lisinopril 10 mg Tab) lisinopril (lisinopril 10 mg Tab) omeprazole (omeprazole 20 mg Cap-DR) sertraline (Zoloft 50 mg Tab) Procedures Performed Sclerotherapy (09/02/2022), Revision (12/20/2020), Sclerotherapy (10/05/2020), left TKR (11/18/2016), knee arthroscope with partial medial meniscectomy and excision of loose body (08/18/2015), section, Cholecystectomy, incisional hernia repair. Discharge Vitals Temperature (Oral) 36.2 ?C Heart Rate (Peripheral) 65 Respiratory Rate 18 Blood Pressure 138/90 Height 167 cm Height 66 in Weight 108.1 kg Weight 237.82 lb BMI 38.76 What to do next Scheduled Follow-Up Appointments Friday 4:20 PM EDT With: ANA CHÁVEZ CNP Where: [facility] [place] Normal [address] Medical [address] [address]- \.br\ You Need to Schedule the Following Appointments\.br\ Follow Up with Pb BAUMAN DO, FAM When: \.br\ Where:\.br\ [address]\.br\ [place] [address]-\.br\ \.br\ Medications\.br\ What How Much When Why Instructions\.br\ New albuterol (Albuterol (Eqv-ProAir HFA) 90 mcg/ inh inhalation aerosol) 2 Puffs Inhalation Every 4 hours as needed for Shortness of breath or wheezing Acute viral bronchitis Duration: 21 Days Pickup at [email or web address] 1985\.br\ New benzonatate (benzonatate 100 mg Cap) 1 Capsules By Mouth 3 times a day as needed for Cough Acute viral bronchitis Duration: 10 Days Pickup at [email or web address] 1985\.br\ New methylPREDNISolone (Medrol 4 mg Tab) 1 Packets By Mouth As Directed Acute viral bronchitis Duration: 6 Days as directed on package labeling Pickup at [email or web address] 1985\.br\ Unchanged albuterol (albuterol HFA 90 mcg/ inh MDI) 2 Puffs Inhalation 4 times a day Contact prescribing physician if questions or concerns \.br\ Unchanged fluticasone (fluticasone propionate 232 mcg/ inh inhalation powder) 232 Microgram Inhalation Every 12 hours Swallowed rather than inhaled rinse mouth and throat after use Contact prescribing physician if questions or concerns \.br\ Unchanged lisinopril (lisinopril 10 mg Tab) 1 Tablets By Mouth Every day Contact prescribing physician if questions or concerns \.br\ Unchanged lisinopril (lisinopril 10 mg Tab) 1 Tablets By Mouth Every day Contact prescribing physician if questions or concerns \.br\ Unchanged omeprazole (omeprazole 20 mg Cap-DR) 1 Capsules By Mouth Every day Contact prescribing physician if questions or concerns \.br\ Unchanged sertraline (Zoloft 50 mg Tab) 1.5 Tablets By Mouth Every day Contact prescribing physician if questions or concerns \.br\ Pharmacy Information\.br\ [facility]: [address] [place], [place] [id number] [phone]\.br\ Allergies\.br\ No Known Medication Allergies\.br\ seasonal ,dust, mold (hayfever)\.br\ Problems\.br\ Ongoing - Any problem that you are currently receiving treatment for.\.br\ Allergic rhinitis\.br\ Anemia\.br\ Breast cancer screening\.br\ Dysphagia\.br\ History of left knee replacement\.br\ Non-smoker\.br\ Normocytic anemia\.br\ Tenderness of lymph node\.br\ Venous insufficiency\.br\ Historical - Any problem that you are no longer receiving treatment for.\.br\ BACTERIAL PNEUMONIA, UNSPECIFIED\.br\ Hypertension\.br\ Microcytosis\.br\ None\.br\ Screening for cardiovascular condition\.br\ Ventral hernia\.br\ Education Materials\.br\ Acute Bronchitis, Adult\.br\ \.br\ Acute bronchitis is sudden inflammation of the main airways (bronchi) that come off the windpipe (trachea) in the lungs. The swelling causes the airways to get smaller and make more mucus than normal. This can make it hard to breathe and can cause coughing or noisy breathing (wheezing).\.br\ Acute bronchitis may last several weeks. The cough may last longer. Allergies, asthma, and exposure to smoke may make the condition worse.\.br\ What are the causes?\.br\ This condition can be caused by germs and by substances that irritate the lungs, including:\.br\ ? \.br\ Cold and flu viruses. The most common cause of this condition is the virus that causes the common cold.\.br\ ? \.br\ Bacteria. This is less common.\.br\ ? \.br\ Breathing in substances that irritate the lungs, including:\.br\ ? \.br\ Smoke from cigarettes and other forms of tobacco.\.br\ ? \.br\ Dust and pollen.\.br\ ? \.br\ Fumes from household cleaning products, gases, or burned fuel.\.br\ ? \.br\ Indoor or outdoor air pollution.\.br\ What increases the risk?\.br\ The following factors may make you more likely to develop this condition:\.br\ ? \.br\ A weak body's defense system, also called the immune system.\.br\ ? \.br\ A condition that affects your lungs and breathing, such as asthma.\.br\ What are the signs or symptoms?\.br\ Common symptoms of this condition include:\.br\ ? \.br\ Coughing. This may bring up clear, yellow, or green mucus from your lungs (sputum).\.br\ ? \.br\ Wheezing.\.br\ ? \.br\ Runny or stuffy nose.\.br\ ? \.br\ Having too much mucus in your lungs (chest congestion).\.br\ ? \.br\ Shortness of breath.\.br\ ? \.br\ Aches and pains, including sore throat or chest.\.br\ How is this diagnosed?\.br\ This condition is usually diagnosed based on:\.br\ ? \.br\ Your symptoms and medical history.\.br\ ? \.br\ A physical exam.\.br\ You may also have other tests, including tests to rule out other conditions, such as pneumonia. These tests include:\.br\ ? \.br\ A test of lung function.\.br\ ? \.br\ Test of a mucus sample to look for the presence of bacteria.\.br\ ? \.br\ Tests to check the oxygen level in your blood.\.br\ ? \.br\ Blood tests.\.br\ ? \.br\ Chest X-ray.\.br\ How is this treated?\.br\ Most cases of acute bronchitis clear up over time without treatment. Your health care provider may recommend:\.br\ ? \.br\ Drinking more fluids to help thin your mucus so it is easier to cough up.\.br\ ? \.br\ Taking inhaled medicine (inhaler) to improve air flow in and out of your lungs.\.br\ ? \.br\ Using a vaporizer or a humidifier. These are machines that add water to the air to help you breathe better.\.br\ ? \.br\ Taking a medicine that thins mucus and clears congestion (expectorant).\.br\ ? \.br\ Taking a medicine that prevents or stops coughing (cough suppressant).\.br\ It is notcommon to take an antibiotic medicine for this condition.\.br\ Follow these instructions at home:\.br\ \.br\ ? \.br\ Take [id number] and prescription medicines only as told by your health care provider.\.br\ ? \.br\ Use an inhaler, vaporizer, or humidifier as told by your health care provider.\.br\ ? \.br\ Take two teaspoons (10 mL) of honey at bedtime to lessen coughing at night.\.br\ ? \.br\ Drink enough fluid to keep your urine pale yellow.\.br\ ? \.br\ Do not use any products that contain nicotine or tobacco. These products include cigarettes, chewing tobacco, and vaping devices, such as e-cigarettes. If you need help quitting, ask your health care provider.\.br\ ? \.br\ Get plenty of rest.\.br\ ? \.br\ Return to your normal activities as told by your health care provider. Ask your health care provider what activities are safe for you.\.br\ ? \.br\ Keep all follow-up visits. This is important.\.br\ How is this prevented?\.br\ \.br\ To lower your risk of getting this condition again:\.br\ ? \.br\ Wash your hands often with soap and water for at least 20 seconds. If soap and water are not available, use hand forensic technician.\.br\ ? \.br\ Avoid contact with people who have cold symptoms.\.br\ ? \.br\ Try not to touch your mouth, nose, or eyes with your hands.\.br\ ? \.br\ Avoid breathing in smoke or chemical fumes. Breathing smoke or chemical fumes will make your condition worse.\.br\ ? \.br\ Get the flu shot every year.\.br\ Contact a health care provider if:\.br\ ? \.br\ Your symptoms do not improve after 2 weeks.\.br\ ? \.br\ You have trouble coughing up the mucus.\.br\ ? \.br\ Your cough keeps you awake at night.\.br\ ? \.br\ You have a fever.\.br\ Get help susan [facility] Family Medicine Office/Clini c Noteon 11-03-2022 Family Medicine Office/Clinic Note Chief Complaint EST, cough and chest pain HPI Staff EST, 51 year old female who presents today for c/o cough and chest pain. Symptoms started- 2 weeks ago Headache- yes Body aches- yes Earache- yes Runny/stuffy nose- no Problem with Smell- no Problem with Taste- no Sore throat- no Cough- yes very dry Scratchy tickly throat- no Chest symptoms- chest tightness Orthopnea-no Lung Hx asthma, bronchitis, chest colds- yes, bronchitis Fever/chills- no GI symptoms- no COVID exposure- no Treatment-NyQuil, minimal improvement History of Present Illness I have reviewed and verified the staff HPI to be accurate for this encounter. Review of Systems PHQ Score Initial Depression Screen Score: 0 Physical Exam Vitals & Measurements T: 36.2 ?C(Oral) HR: 65(Peripheral) RR: 18 BP: 138/90 SpO2: 97% HT: 66 in HT: 167 cm WT: 108.1 kg WT: 237.82 lb BMI: 38.76 General: _ Pleasant, obese female in no acute distress. Eyes: not assessed Ears: No deformity or lesion of external ear. Canals and TM appear normal bilaterally. TM?s intact, not inflamed, with normal light reflex. Hearing grossly normal to conversational speech right TM appears normal. Nose: mild nasal mucosa inflammation and edema Mouth: Mucous membranes moist. Normal oropharynx, and posterior pharynx without lesions or exudates. Tongue normal uvula is midline. Minimal erythema of the posterior pharynx. Neck: no adenopathy Lungs: _ Normal respiratory effort. No conversational dyspnea. Frequent, dry cough during exam. Mild scattered expiratory wheezing noted throughout the bilateral. Cardio: regular rate and rhythm, no murmur Mental Status: Alert and oriented x3. Normal mood and affect Assessment/Plan 1. Acute viral bronchitis (J20.8: Acute bronchitis due to other specified organisms) Discussed bronchitis is typically viral in nature and cough can sometimes last 2-6 weeks. Will Rx Medrol Dosepak, albuterol inhaler prn Tessalon given wheezing. May use for symptomatic treatment. Fu with PCP if not improving over next 10-14 days, sooner if significantly worsening symptoms. Patient verbalized understanding of tx plan. Ordered: albuterol, 2 puff(s), Inhalation, q4hr Shortness of breath or wheezing for 21 day(s), 6.7 gm, Refill(s) 0, [facility], 167, cm, 11/03/22 12:20:00 EDT, Height/Length Dosing, 108.1, kg, 11/03/22 12:20:00 EDT, Weight Dosing benzonatate, 100 mg = 1 cap(s), Oral, TID, PRN Cough, X 10 day(s), # 30 cap(s), Refills(s) 0, Pharmacy: [facility], 167, cm, 11/03/22 12:20:00 EDT, Height/Length Dosing, 108.1, kg, 11/03/22 12:20:00 EDT, Weight Dosing methylPREDNISolone, = 1 packet(s), Oral, As Directed, as directed on package labeling, X 6 day(s), # 21 tab(s), Refills(s) 0, Pharmacy: [facility], 167, cm, 11/03/22 12:20:00 EDT, Height/Length Dosing, 108.1, kg, 11/03/22 12:20:00 EDT, Weight Dosing Body Mass Index (BMI) documented 3008F 2. BMI 38.0-38.9,adult (Z68.38: Body mass index [BMI] 38.0-38.9, adult) The standard range for ages 18 and older is >=18.5 and < 25 kg/m2. Your BMI today was above this range, this falls in the overweight to obese category and there are medical benefits to weight loss. We can offer counselling, referral, and/or medical support in addressing this problem. Your BMI and weight management will be followed at subsequent visits. Follow-up With When Contact Information Pb BAUMAN DO, DEJUAN [address] [place] [address]- Additional Instructions: Patient Education Acute Bronchitis, Adult BMI for Adults Problem List/Past Medical History Ongoing Allergic rhinitis Anemia Breast cancer screening Dysphagia History of left knee replacement Non-smoker Normocytic anemia Tenderness of lymph node Venous insufficiency Historical BACTERIAL PNEUMONIA, UNSPECIFIED Hypertension Microcytosis None Screening for cardiovascular condition Ventral hernia Procedure/Surgical History Sclerotherapy (09/02/2022), Revision (12/20/2020), Sclerotherapy (10/05/2020), left TKR (11/18/2016), knee arthroscope with partial medial meniscectomy and excision of loose body (08/18/2015), section, Cholecystectomy, incisional hernia repair. Medications Albuterol (Eqv-ProAir HFA) 90 mcg/inh inhalation aerosol, 2 puff(s), Inhalation, q4hr, PRN albuterol HFA 90 mcg/inh MDI, 2 puff(s), Inhalation, QID, 2 refills benzonatate 100 mg Cap, 100 mg= 1 cap(s), Oral, TID, PRN fluticasone propionate 232 mcg/inh inhalation powder, 232 mcg, Inhalation, q12hr, 5 refills lisinopril 10 mg Tab, 10 mg= 1 tab(s), Oral, Daily, 1 refills lisinopril 10 mg Tab, 10 mg= 1 tab(s), Oral, Daily, 4 refills Medrol 4 mg Tab, 1 packet(s), Oral, As Directed omeprazole 20 mg Cap-DR, 20 mg= 1 cap(s), Oral, Daily Zoloft 50 mg Tab, 75 mg= 1.5 tab(s), Oral, Daily, 2 refills Allergies No Known Medication Allergies seasonal ,dust, mold (hayfever) Social History Alcohol - Denies Al (more content not included)... [facility] Comment on above: Result Comment: Elec tronically Signed By: DIONI Scott APRN, [place] X\.br\Date and Time Signed: 11/03/22 12:38 EDT Patient Educationon 11-04-19 Patient Education Nutrition BMI for Adults What is BMI? Body mass index (BMI) is a number that is calculated from a person's weight and height. BMI can help estimate how much of a person's weight is composed of fat. BMI does not measure body fat directly. Rather, it is an alternative to procedures that directly measure body fat, which can be difficult and expensive. BMI can help identify people who may be at higher risk for certain medical problems. What are BMI measurements used for? BMI is used as a screening tool to identify possible weight problems. It helps determine whether a person is obese, overweight, a healthy weight, or underweight. BMI is useful for: ? Identifying a weight problem that may be related to a medical condition or may increase the risk for medical problems. ? Promoting changes, such as changes in diet and exercise, to help reach a healthy weight. BMI screening can be repeated to see if these changes are working. How is BMI calculated? BMI involves measuring your weight in relation to your height. Both height and weight are measured, and the BMI is calculated from those numbers. This can be done either in [place] or metric measurements. Note that charts and online BMI calculators are available to help you find your BMI quickly and easily without having to do these calculations yourself. To calculate your BMI in [place] measurements: 1. Measure your weight in pounds (lb). 2. Multiply the number of pounds by 703. ? For example, for a person who weighs 180 lb, multiply that number by 703, which equals 126,540. 3. Measure your height in inches. Then multiply that number by itself to get a measurement called inches squared. ? For example, for a person who is 70 inches tall, the inches squared measurement is 70 inches x 70 inches, which equals 4,900 inches squared. 4. Divide the total from step 2 (number of lb x 703) by the total from step 3 (inches squared): 126,540 ? 4,900 = 25.8. This is your BMI. To calculate your BMI in metric measurements: 1. Measure your weight in kilograms (kg). 2. Measure your height in meters (m). Then multiply that number by itself to get a measurement called meters squared. ? For example, for a person who is 1.75 m tall, the meters squared measurement is 1.75 m x 1.75 m, which is equal to 3.1 meters squared. 3. Divide the number of kilograms (your weight) by the meters squared number. In this example: 70 ? 3.1 = 22.6. This is your BMI. What do the results mean? BMI charts are used to identify whether you are underweight, normal weight, overweight, or obese. The following guidelines will be used: ? Underweight: BMI less than 18.5. ? Normal weight: BMI between 18.5 and 24.9. ? Overweight: BMI between 25 and 29.9. ? Obese: BMI of 30 or above. Keep these notes in mind: ? Weight includes both fat and muscle, so someone with a muscular build, such as an athlete, may have a BMI that is higher than 24.9. In cases like these, BMI is not an accurate measure of body fat. ? To determine if excess body fat is the cause of a BMI of 25 or higher, further assessments may need to be done by a health care provider. ? BMI is usually interpreted in the same way for men and women. Where to find more information For more information about BMI, including tools to quickly calculate your BMI, go to these websites: ? Centers for Disease Control and Prevention: www.cdc.gov ? [place] [employer] Association: www.heart.org ? National Heart, Lung, and Blood [place]: www.nhlbi.nih.gov Summary ? Body mass index (BMI) is a number that is calculated from a person's weight and height. ? BMI may help estimate how much of a person's weight is composed of fat. BMI can help identify those who may be at higher risk for certain medical problems. ? BMI can be measured using [place] measurements or metric measurements. ? BMI charts are used to identify whether you are underweight, normal weight, overweight, or obese. This information is not intended to replace advice given to you by your health care provider. Make sure you discuss any questions you have with your health care provider. Document Revised: 03/15/2020 Document Reviewed: 01/21/2020 [employer] Patient Education ? 2022 [place]. Pulmonary Medicine Acute Bronchitis, Adult Acute bronchitis is sudden inflammation of the main airways (bronchi) that come off the windpipe (trachea) in the lungs. The swelling causes the airways to get smaller and make more mucus than normal. This can make it hard to breathe and can cause coughing or noisy breathing (wheezing). Acute bronchitis may last several weeks. The cough may last longer. Allergies, asthma, and exposure to smoke may make the condition worse. What are the causes? This condition can be caused by germs and by substances that irritate the lungs, including: ? Cold and flu viruses. The most common cause of this condition is (more content not included)... Normal [facility] Family Medicine Office/Clini c Noteon 10-28-2022 Family Medicine Office/Clinic Note Chief Complaint food stuck in throat HPI Staff Jessenia is a 51 year old female who presents for difficulties swallowing. Patient having difficulties swallowing food. She states feels like stuck in throat . This has been going on for a while now has gotten worse within the last mo. Spitting up blood noticed this a week ago. Burning sensation down her throat. History of Present Illness JESSENIA WING is a 51-year-old female who presents today for concerns with feelings of globus sensations with eating/dysphagia. The patient states she has been having issues with dysphagia for approximately 6 months. She states it is all foods. She denies regurgitating any foods back up. She states it feels like a slide in the back of her throat and the top of her mouth will sometimes get swollen. She states it has gotten worse over the last month. She states she has noticed streaks of blood when she was spitting up. She states it started 1 week ago, but it was just that one time. She states the burning sensation down the throat is intermittent. She states she has tried Tums. She denies any history of having an EGD. She states she has never followed up with a GI specialist in the past. She denies any history of thyroid disease. She states she has had shortness of breath sometimes. I have reviewed and verified the staff HPI to be accurate for this encounter. Review of Systems PHQ Score Initial Depression Screen Score: 0 Constitutional: No fever, no chills, no sweats, no weakness Skin: No rash, no lesions, no petechiae Eye: No eye pain, no discharge, no light sensitivity, no eye irritation, no double vision blurring, no vision loss ENMT: No ear pain, no ear drainage, no sore throat, no nasal congestion, no nasal drainage, no hoarseness Respiratory: No chest discomfort, no shortness of breath, no cough, no orthopnea, no wheezing Cardiovascular: No chest pain no, no palpitations, no edema Gastrointestinal: No nausea, no vomiting, no diarrhea Neurologic: No headache, no dizziness, no numbness/tingling, no weakness Physical Exam Vitals & Measurements T: 36.7 ?C(Temporal Artery) HR: 81(Peripheral) BP: 144/82 SpO2: 98% HT: 66 in HT: 167 cm WT: 110.1 kg WT: 242.22 lb BMI: 39.48 General: Well developed, well nourished, in no acute distress Ears: No deformity or lesion of external ear. Canals and TM appear normal bilaterally. TM's intact, not inflamed, with normal light reflex. Hearing grossly normal to conversational speech Nose: No deformity, discharge, inflammation, or lesions Mouth: Mucous membranes moist. Normal oropharynx, and posterior pharynx without lesions or exudates. Tongue normal Neck: Neck supple. No masses or palpable cervical nodes. Trachea midline. Thyroid without nodules, masses, tenderness, or enlargement Lungs: Normal respiratory effort and clear to auscultation Cardio: Regular rate and rhythm, normal S1 and S2, no murmur, no rub Extremity: No clubbing, cyanosis, edema, or deformity, with normal ROM in both upper and lower bilateral extremities Neurologic: Grossly normal Skin: No rashes, ulcerations, or suspicious lesions Mental Status: Alert and oriented x3. Normal mood and affect Assessment/Plan 1. Dysphagia (R13.10: Dysphagia, unspecified) Unclear etiology, do question if related to EOE. We will be referring to GI for further evaluation/managemen t. In the meantime while waiting to get appointment scheduled we will start on omeprazole and also start with inhaled/swallowed steroid which was discussed with patient. Follow-up in 1 month to discuss effectiveness of treatment plan. Ordered: [facility] Internal Ambulatory Referral 2. BMI 39.0-39.9,adult (Z68.39: Body mass index [BMI] 39.0-39.9, adult) Education attached on health risks of obesity and discusses healthy, balanced diet low in sugar, fat, carbs and exercise regimen ATTESTATION: Documentation services were performed after patient or guardian consented to allow Kia Jean to record this visit. STEFFI underwriting support specialist and provider reviewed before signing. STEFFI: Michelle Britany, pasted by Sunshine Jeter. Follow-up No qualifying data available Patient Education Budget-Friendly Healthy Eating Exercising to Lose Weight BMI for Adults Dysphagia Eating Plan, Bite Size Food Problem List/Past Medical History Ongoing Allergic rhinitis Anemia Breast cancer screening History of left knee replacement Non-smoker Normocytic anemia Tenderness of lymph node Venous insufficiency Historical BACTERIAL PNEUMONIA, UNSPECIFIED Hypertension Microcytosis None Screening for cardiovascular condition Ventral hernia Procedure/Surgical History Sclerotherapy (09/02/2022), Revision (12/20/2020), Sclerotherapy (10/05/2020), left TKR (11/18/2016), knee arthroscope with partial medial meniscectomy and excision of loose body (08/18/2015), section, Cholecystectomy, incisional hernia repair. Medications albuterol HFA 90 (more content not included)... [facility] Comment on above: Result Comment: Elec tronically Signed By: ANA CHÁVEZ CNP\.br\Date and Time Signed: 10/27/22 22:16 EDT\.br\Electronically Co-Signed By: Sunshine Jeter\.br\Date and Time Co-Signed: 10/25/22 18:19 EDT Patient Educationon 10-29-19 Patient Education Nutrition Budget-Friendly Healthy Eating There are many ways to save money at the grocery store and continue to eat healthy. You can be successful if you: ? Plan meals according to your budget. ? Make a grocery list and only purchase food according to your grocery list. ? Prepare food yourself at home. What are tips for following this plan? Reading food labels ? Compare food labels between brand name foods and the store brand. Often the nutritional value is the same, but the store brand is lower cost. ? Look for products that do not have added sugar, fat, or salt (sodium). These often cost the same but are healthier for you. Products may be labeled as: ? Sugar-free. ? Nonfat. ? Low-fat. ? Sodium-free. ? Low-sodium. ? Look for lean ground beef labeled as at least 92% lean and 8% fat. Shopping ? Buy only the items on your grocery list and go only to the areas of the store that have the items on your list. ? Use coupons only for foods and brands you normally buy. Avoid buying items you wouldn't normally buy simply because they are on sale. ? Check online and in newspapers for weekly deals. ? Buy healthy items from the bulk bins when available, such as herbs, spices, flour, pasta, nuts, and dried fruit. ? Buy fruits and vegetables that are in season. Prices are usually lower on in-season produce. ? Look at the unit chen on the chen tag. Use it to compare different brands and sizes to find out which item is the best deal. ? Choose healthy items that are often low-cost, such as carrots, potatoes, apples, bananas, and oranges. Dried or canned beans are a low-cost protein source. ? Buy in bulk and freeze extra food. Items you can buy in bulk include meats, fish, poultry, frozen fruits, and frozen vegetables. ? Avoid buying eqxil-op-neu foods, such as pre-cut fruits and vegetables and pre-made salads. ? If possible, shop around to discover where you can find the best prices. Consider other retailers such as dollar stores, larger wholesale stores, local fruit and vegetable stands, and farmers markets. ? Do not shop when you are hungry. If you shop while hungry, it may be hard to stick to your list and budget. ? Resist impulse buying. Use your grocery list as your official plan for the week. ? Buy a variety of vegetables and fruits by purchasing fresh, frozen, and canned items. ? Look at the top and bottom shelves for deals. Foods at eye level (eye level of an adult or child) are usually more expensive. ? Be efficient with your time when shopping. The more time you spend at the store, the more money you are likely to spend. ? To save money when choosing more expensive foods like meats and dairy: ? Choose cheaper cuts of meat, such as bone-in chicken thighs and drumsticks instead of skinless and boneless chicken. When you are ready to prepare the chicken, you can remove the skin yourself to make it healthier. ? Choose lean meats like chicken or turkey instead of beef. ? Choose canned seafood, such as tuna, salmon, or sardines. ? Buy eggs as a low-cost source of protein. ? Buy dried beans and peas, such as lentils, split peas, or kidney beans instead of meats. Dried beans and peas are a good alternative source of protein. ? Buy the larger tubs of yogurt instead of individual-sized containers. ? Choose water instead of sodas and other sweetened beverages. ? Avoid buying chips, cookies, and other junk food. These items are usually expensive and not healthy. Cooking ? Make extra food and freeze the extras in meal-sized containers or in individual portions for fast meals and snacks. ? Pre-cook on days when you have extra time to prepare meals in advance. You can keep these meals in the fridge or freezer and reheat for a quick meal. ? When you come home from the grocery store, wash, peel, and cut fruits and vegetables so they are ready to use and eat. This will help reduce food waste. Meal planning ? Do not eat out or get fast food. Prepare food at home. ? Make a grocery list and make sure to bring it with you to the store. If you have a smart phone, you could use your phone to create your shopping list. ? Plan meals and snacks according to a grocery list and budget you create. ? Use leftovers in your meal plan for the week. ? Look for recipes where you can cook once and make enough food for two meals. ? Prepare budget-friendly types of meals like stews, casseroles, and stir-cortez dishes. ? Try some meatless meals or try no cook meals like salads. ? Make sure that half your plate is filled with fruits or vegetables. Choose from fresh, frozen, or canned fruits and vegetables. If eating canned, remember to rinse them before eating. This will remove any excess salt added for packaging. Summary ? Eating healthy on a budget is possible if you plan your meals according to your budget, purchase according to your budget and grocery list, and prepare food yourself. ? Tips for buyi (more content not included)... [facility] Ambulatory Visit Summaryon 0 10-25-2022 Ambulatory Visit Summary JESSENIA WING :1970 Visit Date:10/25/2022 Ambulatory Visit Instructions Your Diagnosis BMI 39.0-39.9,adult Your Care Team Attending Physician - NAA CHÁVEZ CNP Primary Care Physician - Pb BAUMAN DO This Is Your Medications List albuterol (albuterol HFA 90 mcg/inh MDI) lisinopril (lisinopril 10 mg Tab) lisinopril (lisinopril 10 mg Tab) sertraline (Zoloft 50 mg Tab) Procedures Performed Sclerotherapy (09/02/2022), Revision (12/20/2020), Sclerotherapy (10/05/2020), left TKR (11/18/2016), knee arthroscope with partial medial meniscectomy and excision of loose body (08/18/2015), section, Cholecystectomy, incisional hernia repair. Discharge Vitals Temperature (Temporal Artery) 36.7 ?C Heart Rate (Peripheral) 81 Blood Pressure 144/82 Height 167 cm Height 66 in Weight 110.1 kg Weight 242.22 lb BMI 39.48 What to do next Scheduled Follow-Up Appointments 2022 3:30 PM EDT With: Rita Dover MD Where: [facility] Friday 4:20 PM EDT With: ANA CHÁVEZ CNP Where: [facility] Coding Summary.on 09-03-2022 Coding Summary. [id number] Gh0bWw+PGhlYWQ+PE1FV TYhT38lbGUitH5RX6hFH T5KJRAIDAFJGC2QRM7wh NW0VCpdD7HsunQc InzdiDWzYK61SDz7RUQ4 rPlsCCkrgB7siFJnB6y2 GvIdMK74xP35PSzdHCSr JxW6JvOnenctpLCe Q3brPwGpoRPfSdc+PHRh YmxlIHdpZHRoPScxMDAl LePhjQejUI2tHs5yVUXd LWNvbGxhcHNlOiBj i2gnKRKlJPqnZH2psVmz U2OscDT3YMNxt3l4Uf90 dHI+XZDoMHM7yHkxJAzn d954AdTto5qbUGH2 xBRgNArxKML7R97fd3X9 UEExSREmZDV4cUF2nK6n jGsdzexkP6FsgTTyIwQ3 XCI3pJFyqX8itYdf nwsltQ2yJse+A26GEX7R WYJCCC1CSgv9J7WuIpzh dHI+MU27AOJeRL32iWAd wQOfh2ycnEv3PxZu JEYuTNC5uKpzJJmrr6Gz KLByT94zvKXpg6O1XCMq mGcwvAXnVaStbFG3vW7e IDiyvaytp0fmdkin Bwhbl2ikmj60eD22J15w WMrwTGDzPAP9XCTcUFIc lGsaox7dbM2cWb6+IDxj l1adw6mtaNx1LwUk ZRTwhxUsyPwzXME8h9Hh Vl72W1PbmVwli0NdPhx8 ji31vMRpo6P1uVK9ITaz TJAtdY7lJYyvXuA0 UWRzFiBymJ51uIZtYAwk Rp0wcRjiiJzxLL6qTIHp myusXDYvnJ6pPCObuJKx bTojAI1dKAXoftbn o264SqNiNJS4OHHqjBXr S0XkpE2cFzHvZREwKWMj O3KpnFWyTWzgZ922SDmg UrJ0QUPaysZzK5Fk VPVqfZgaZhW4u0Q5Hb3M p2SvngsySWO6VCshKGOl DuQ8JcJlYdJ9R2EvNhk3 WYRvwGaiXK4wH4Qs BLLbpgqpvfuvjDJ7JDMn PQLdzG70eQYxAHbsUv2r x1E4a682KYEnHVTyyM25 Me6fyVvtPHTswAZG pP3zozfaw0krgamjDxWv JLMeNDb9IUs2YSZakKvv BmQkVPI1IvR6JOE2hUHv mI4wiGhkidtjoN2j Oyc+F09fmX8oNWU7YIG1 hyxzQKKggzZdPO02PG70 L4NeKvricOUpePW+PGRp iyHieHvgAL8mMnZl i4tus7SxMEfxI6CjGUQv SGxlBhk9XUOrDEH6lNV3 fX1tJQAdRDnwo7L5pGW8 Q0KhlcGula7fu3np ROUlOEmjR37kqQBne0K6 TYIlnFK2IKKxaNfnBeAl yQ74Uwb+YUKqlXvvr5Pr Fqzgz2ubh3imxZl7 IjMwJSIgdmFsaWduPSJ0 m5VaJk95G05jLBsvNHAl WJVnHOEkHSCecFyzld1t kZ2yMl3+PGNvbCB3 hTJ7rH3kMKOkHmB0AVgl X627KjRgtZWuDsqft6ga v2kchTi6HlWtWGLiydHy bUfhFFH5t0MxUv18 P47hBHulNYEgHZWqLGQy YSLaePbfef2vyZ4zEf2+ LV2hb7tiyu03zL87jEX+ AQEtXJU8aUrkJNhm QISslG8iLBjzQlM5WZGa YgLhuM51xMFmUVjbGd4q xRcyrIznDJ8bQZNsogat d268QpQbu4dvKZSk nOHpJIcbQIK9G35cv0T8 NETcQQWrCUE1uNY3hS9r bGlnbjogbGVmdDsgdmVy zPevGEchXLcmN894 IHRvcDsnPlBhdGllbnQg WxVwJVb7P0VzCqd1JVSp dYlhUW2diHJkQLhgRq3r xDbbnLvtTB9uQUXh novma746VkBph2zkTBIu qDPtOAneUKV6P11pz5V3 CPXrWHNoIBE0oAM4rH4v bGlnbjogbGVmdDsg ndLgfEkpLYgcBGycG367 IHRvcDsnPkJpcnRoIERh gSS9QH08IP01wVDpw0S2 sAI2Y2NeEOWgvoub kjvbjHQ0FWYpTDNkcT62 Cl0oiSitQh0aHKFdMOC5 QWDuoNAlE9LphB1pDcUx NKMcMZNoQ6BgpEKi WJnvQ830QSlmWtZ3ZNJy gqDcR7VpCRGljLeyPnZ1 y5C3Oh3VD3J6LW48HX40 pCKul2S4wVX2A5Ia SUTfzyaniwqolTD0SLPv YAEuvF81Lm4mlKwaWk4v UCLrZOS7QDUmrGBwN1Re eN3aZfSnTSAvPAFy G4EnfOEyQJtkF429RXrn GyZ1ZWUhncWgG9EsWDPf bJndCzI1f7X0Nk2MVJu6 FI65CG84lFWtd9X4 uNW9O1TkSGBavvrangdd yFS9XRUaPLTkkF48Rj4e mVhqVt4uJWNqXPL4VWXw iPPaD5JkxM3sKmYt EAVxKCKkC4GucQCsVTpx U856MOgfRdD2VXKhyyKv O5SjQGPztTnfIxV5y3K1 Mk3PUYJbYI35PJP9 zMZ9FI38QI71F2LrCnlf dGFibGU+PHRhYmxlIHdp ZHRoPScxMDAlJyBzdHls MW1mXu8vAKGnVAZf bXychMKgXmCnv3wjMGNs SFrqZH5knQmwV4JfuGM8 IYXcw1w8Dt13Q30rV7Qk dXA+FZBxtYM0kHL3 aB4zSsBzEtR3ZGgkQ896 XcQydCWmNikjr4dml5yl vJe0MiT7SJIpntBimPnq HCG7w7TaOh32Y77t IHdpZHRoPSIxNSUiIHZh gYghhn8ggV4nQr0+PGNv uJT3mRL4gM6sTcBmJzR4 HVpwE500KlLdsSSc Zgkfs9bof4ghaAv8BbMr WEEegaTypDpaGSR3q3Qr Rm71I1JkyLsda4JtHgm1 ka18zDMev0A0gIL2 B1ZdEJVwadbfhOWasDxm PM1rQIJbiegnOUPfbT8x LSGqC9v7XrEjPrY5MDgn J0QxqjW1UESktHBn QFagMWM1G20um9X2KDIr WVDsFUG1jQO3cQ9wcZao bjogbGVmdDsgdmVydGlj HNomUVfnO410LSPh lCtqIDRcqO0fGBEilYQt bQouIE1qOSViytugGmgT JPEQBkqeQ6FMSKlODdvK GJ54N7TgXwe0OKJa vUtbHD0aiMZsTJsjGy6e xVukjVggHA2mIGTxsvjp XWLyeE0tVXVvgTExdVca ET5eMFWnsdset821 WoKkNSO4ETIyeOPiO3Tb xP5jGfJmARNrNIAjF9Dw hICfOTatH937GFoaZqN2 EXMnyrGwN3AjAJXp nDebUbL7l9P5Wj5tDo9q NM5pWNglUS72DH21hHIt j2G8zEE7J0SiQIPcsirp xjkjpML0INVqWMHj qK13aALvIQeyFo4qz4X4 j485UZGfOYNzoI07Ef7n sInlCHPnnJKXiM9gdpgl j1sckrzqTqEeAJRd GQx3YMx1RMFqmPjpUnCs RQJ1XzT0CJJ4aSXynF0d yXhlezlnsB3nTru+NTAg UNQpngN9U3JsYjt3 DKFyiWpqMU6xrDWgOXlp Gv5rpJhrsAwhWJ1jDTTc wyjvJLAayK9hSDWdwKMw aDhbLN2fTTKkjlkp l333GeWuCQB2ZXRxeTHy F1VznN9xMmVnPICkCSDj E8BqcAJuCEdsV384MQcs DvP9IIShslFoW7Vt HKRlaZxiJnH0h6W2Tj2K VU2ipJN5E0NaMej7UEYq pXrwIS9siSZhLXktRg8t kNwqtEciEF2eLVTo wqhfKIExvC5aVSYgaXPd gDybAN1bFLCkwmcnl613 HmBkRJR1HKVgtQKbM0Pf oA8qEvVeYFPoJWFr W7EkySRnHIpaD624SPdv VaA7ETOfmcDiA5HxJMBy oUmpPpP9h4Z0Jq5CuMT0 cOF9y2S4A9NoqAKg JSK3ZMZ5gyhafry6L9Nk PjwvdHI+PQ04WZOkKJ99 iSNgpVAqj0dqbMg2VnFb JOPvWMW6aJswHFdw a6VjMNZfY27tsXAkv0Y2 IGNvbGxhcHNlOyBlbXB0 tA2eRRbheuypd7lpewmy Ysgaw3xkhz30tY58 I58jGCpdPRBqXBPtHNSv TPEnzKtwli2tuC8fLi3+ KNYrbNQ1pMK0gY2aZeRh WmY0PKqpN420QaAp vOQtDcexf5ejc3dzvZi5 IjIwJSIgdmFsaWduPSJ0 p1XhAn66Q55wNRhfNHTj PSIyMCUiIHZhbGln ez2uiD0bSh4+RR7si1nt ls29zV65vTW+PHRkIHN0 xJfuPQsoUASttB4wFKqf SoW2ZBZdUpIojE16 tBFcKVkpXc0oqLykeZus GL6dHYWzeujvw174ZkTs w8tdYOPdvTMzSGdxGFX0 S43hn6Y7QQOtPOAm FBM6pGQ3aT4tiWncjgcw bGVmdDsgdmVydGljYWwt VJubU326TINkdPavIkCp nHUuB8fiarOBQH2a OjwvdGQ+GMCbLLL2yOnt FLhdHIZxuR2gFFUpV5y4 MeWtOiD5THhrV3HopaA7 IGJvbGQgMTBwdCBU aS6fgauvm6ryvfquEfPz XSVmFLp9LOl1IHRtnVge ViIgCWD1OiV2QXA8bBGe hN9ihYiqrxfzyX6e Oyc+RklOOjwvdGQ+PHRk MJJ4iGmxWKrgVXNxvV6x FBBzA9p8LeBgDmC3IIat P6RncyM7YUDxgNTv THOzyPIOpC1pevjkv3ra ilwcTwKsNCGjXXu1ASe2 FNAdmCvtHrHuWMT2TbH1 XIG2mXFjtG6ybXwz dgphsJ0bXct+TVJOOjwv dGQ+PFAwPGP2qWaiAWii VUAemO8kKTNmL3k3VyVn OjK9PTjaR0TzvnV4 ZOMoeIOlWHFgwNQFqW2x omdtl8wemmwiCfDhYREd MCy1OGt6MZNnuWmjOfDu THT2LoI1AYX4vRPz uR3kpNujpffyeG5zHrd+ OGA8EUS2EW25AM41Y4Aj PjwvdGFibGU+PHRhYmxl IHdpZHRoPScxMDAl JyBz (more content not included)... [facility] Consent for Procedure/Surger yon 09-03-2022 Consent for Procedure/Surgery [id number]#[id number]:127 [facility] Discharge Instructionson Discharge Instructions [id number]#1.00CD:127 [facility] Cardiovascular Reporton 08-08 Cardiovascular Report [id number]#1.00CD:127 [facility] Consent for Treatmenton 08-08 Consent for Treatment [id number] #1.00CD:127 [facility] Inpatient Clinical Summaryon 09-02-2022 Inpatient Clinical Summary [place] [id number] Clinical Summary Person Information: Name: JESSENIA WING Age: 51 Years : 1970 Sex: Female PCP: Pb BAUMAN DO Marital Status: Race: White Ethnicity: Non- or Language: [place] Visit Id: Visit Reason: I82.893//US GUIDED INJECTION SCHLEROTHERAPY Speciality: Acuity: Enc Type: Ambulatory/Same Day Surgery Med Service: Surgery Arrival: 09/02/2022 11:55:38 Discharge: Dispo Type: Address: [address] [place] [address] [id number] Provider Notes: Diagnosis: Problems Active Tenderness of lymph node Normocytic anemia History of left knee replacement Allergic rhinitis Anemia Breast cancer screening Non-smoker Venous insufficiency Smoking Status: Functional Status: Sensory Deficits: History of Falls: Mobility Assistance Prior to Admission: ADLs: Current Level of Assistance for Self-Care/Mobility: Cognitive Status: Allergies seasonal ,dust, mold (hayfever) No Known Medication Allergies Measurements: Height: Weight: Blood Pressure: Not Valued / Not Valued BMI: Procedures No Procedures Documented Immunizations No Immunizations Documented This Visit Final Med List: albuterol (albuterol HFA 90 mcg/inh MDI) 2 Puffs Inhalation 4 times a day. Refills: 2. lisinopril (lisinopril 10 mg Tab) 1 Tablets By Mouth every day. Refills: 1. lisinopril (lisinopril 10 mg Tab) 1 Tablets By Mouth every day. Refills: 4. sertraline (Zoloft 50 mg Tab) 1.5 Tablets By Mouth every day. Refills: 2. Care Team Members: Attending Physician: Rita Dover MD Consulting Physician: Referring Physician: Rita Dover MD Follow up: With: Address: When: [address] [address] Business (1) 09/30/2022 10:30 AM Comments: Keep scheduled appointment Patient Education Information: CV - EVLT Discharge Instructions (Custom) [facility] Inpatient Patient Summaryon 09-02-2022 Inpatient Patient Summary [address] [address] Patient Discharge Instructions PERSON INFORMATION Name: JESSENIA WING Date of : 1970 Current Date: 09/02/2022 12:56:29 PHYSICIANS Admitting Physician: Rita Dover MD Primary Care Physician: Pb BAUMAN DO PCP Comment: Discharge Diagnosis: Condition at Discharge: Stable JESSENIA WING has been given the following list of follow-up instructions, prescriptions, and patient education materials: PATIENT FOLLOW-UP INFORMATION Diet: Discharge Activity: Discharge Restrictions: Wound Care Instructions: Remove dressing as instructed Remove Your Dressing In Days Call Your Doctor For: IF UNABLE TO CONTACT YOUR PHYSICIAN AND YOU FEEL IT IS AN EMERGENCY, GO TO THE NEAREST EMERGENCY ROOM OR CALL 911 Home Treatment: Devices/Equipment: Special Services: Additional Instructions: Primary Care Physician to provide the following pending test results: None Follow up: With: Address: When: [address] [address] Business (1) 09/30/2022 10:30 AM Comments: Keep scheduled appointment In the event that this physician does not participate in your insurance network, please consult with your insurance company to find a nearby participating provider. Comment: I, MECCAJESSENIA, have received the attached patient education materials/instructio ns and have verbalized understanding: Patient Signature Date Clinican/Nurse Signature Date HERE ARE THE MEDICATION CHANGES THAT OCCURRED DURING YOUR HOSPITAL STAY Medications to Continue with No Changes Other Medications albuterol (albuterol HFA 90 mcg/inh MDI) 2 Puffs Inhalation 4 times a day. Refills: 2. Last Dose: Next Dose: lisinopril (lisinopril 10 mg Tab) 1 Tablets By Mouth every day. Refills: 1. Last Dose: Next Dose: lisinopril (lisinopril 10 mg Tab) 1 Tablets By Mouth every day. Refills: 4. Last Dose: Next Dose: sertraline (Zoloft 50 mg Tab) 1.5 Tablets By Mouth every day. Refills: 2. Last Dose: Next Dose: Comment: MEDICATION LIST PROVIDED FOR YOU IS A LIST OF YOUR CURRENT MEDICATIONS. PLEASE CARRY THIS WITH YOU AT ALL TIMES. albuterol (albuterol HFA 90 mcg/inh MDI) 2 Puffs Inhalation 4 times a day. Refills: 2. lisinopril (lisinopril 10 mg Tab) 1 Tablets By Mouth every day. Refills: 1. lisinopril (lisinopril 10 mg Tab) 1 Tablets By Mouth every day. Refills: 4. sertraline (Zoloft 50 mg Tab) 1.5 Tablets By Mouth every day. Refills: 2. Pharmacy Information: [facility] Comment: PATIENT EDUCATION INFORMATION Instructions: 1. Leave the Unna boot on for 1 week, then shower and place Calamine Lotion on your leg and put on support stockings. 2. Take Advil (Motrin, ibuprofen) 1 or 2 tabs each 8 hours for one week after your procedure. Take with food. 3. Walk for at least 20 minutes several times during the day of the procedure and several times daily for three days afterward. 4. Do not drive for 24 hours after your procedure. 5. Do not use a hot tub, swim, or take a hot bath for the entire time Unna Boot is in place. 6. No running or vigorous exercising or lifting for one week after your procedure. 7. Do not fly for one week following your procedure 8. It is normal to experience some bruising, soreness, and a tightening sensation in the leg for 2-3 weeks after the treatment. This should begin to subside after 2 weeks. 9. If you have any questions or concerns, call to speak with your doctor. [facility]: [phone]. Medication Leaflets: You may receive a survey from [employer] [facility] asking you to rate your care experience. Your feedback is important and will help us understand what we do well and how we can improve the quality of care we provide to you, your loved ones and our community. It?s an honor to serve you. Thank you for choosing [facility] Operative Reporton Operative Report SURGERY DATE: 09/02/2022 PREOPERATIVE DIAGNOSIS: Right leg venous ulcer POSTOPERATIVE DIAGNOSIS: Right leg venous ulcer OPERATION: 1. Ultrasound-guided injection sclerotherapy of multiple varicosities in the right leg 2. Placement of Unna boot ANESTHESIA: None INDICATIONS: This is a 51-year-old lady whose venous insufficiency was treated in the past. Came in with venous eczema and mamie venous ulcer today. She is here for injection sclerotherapy and Unna boot placement. PROCEDURE: The patient was taken back to the Catheterization Lab and placed in supine position. Appropriate cardiopulmonary monitors were set. Ultrasound was used to identify multiple varicosities in the vicinity of the ulcer, at the base of the ulcer and around the area. 1% sodium tetradecyl was injected in multiple veins treating those varicosities. At the end, Unna boot was placed. The patient tolerated the procedure very well. No complications. Rita Dover M.D. Dictated: 09/02/2022 [id number] Transcribed: 09/02/2022 [facility] Comment on above: Result Comment: Elec tronically Signed By: Stanislaw CROCKER, Rita Long\.br\Date and Time Signed: 09/02/22 15:43 EST Patient Education - Texton 0 09-02-2022 Patient Education - Text 1. Leave the Unna boot on for 1 week, then shower and place Calamine Lotion on your leg and put on support stockings. 2. Take Advil (Motrin, ibuprofen) 1 or 2 tabs each 8 hours for one week after your procedure. Take with food. 3. Walk for at least 20 minutes several times during the day of the procedure and several times daily for three days afterward. 4. Do not drive for 24 hours after your procedure. 5. Do not use a hot tub, swim, or take a hot bath for the entire time Unna Boot is in place. 6. No running or vigorous exercising or lifting for one week after your procedure. 7. Do not fly for one week following your procedure 8. It is normal to experience some bruising, soreness, and a tightening sensation in the leg for 2-3 weeks after the treatment. This should begin to subside after 2 weeks. 9. If you have any questions or concerns, call to speak with your doctor. [facility]: [phone]. [facility] Coding Summary.on 08-20-2022 Coding Summary. [id number] Gh0bWw+PGhlYWQ+PE1FV VMfA06vqKEubI4RK2bHQ U2GRZXCMTZXIG5SPW3qg PW4AFuzQ6ZhulUh JibuzCOeVQ16SJb5QJF6 xVrfTFlpzN5rfZIlO1i7 RoZoMX96gI39IYziJWLp CnK9DqDhxvfveFBp X0fyCwUaqWYaFrm+PHRh YmxlIHdpZHRoPScxMDAl XvAnpIiqKM5cLq1mWRSt LWNvbGxhcHNlOiBj u9vtPZNgMCxtUU2rvFzz T0TusUV3IRWov1w7Ht15 dHI+SUGeOGQ9dSmbKCnb g650GxXud1inXXQ4 cSCbGRhjEHL0D12gc2X8 VHVxXRSpKLV7rAL3qK3q lSlllywvI1TgcPKjFfV6 VUL0gZJdnV5hyRsq uyfemJ2kLvu+H31XNE5V HOBAQV1CJct8W1PuNqmj dHI+XI52VTKzQZ12lKPw sHUst9yrrBp2OsAe MSMtBLL5pGipAFexa4Be NEIfA66fzZLva2L1UCHp nGumtOQsHzTxvXT5aJ3r KPbajbswv4eojcaf Zcsgr1zhdc16lS07A10p BSkuYHXqYBV2VQEvDDIe oJmfwb6oiY5tKu2+IDxj k8nve2qteGv6PdRq OWHlacJgyQcmAMB6f8Kc Cj88K0AmbYeuk3ZhRqe2 lr93jQJdr0B5wUE0STkq TQYsuN7jGXmrKrX5 VTIoIoXaxC44wTWhUEdg Hy9alCkrmCloOH8hMMMr wibzXNMtsP2gIJKteZPp iSynIE1aUKZrnaiv k835EoQcZEO3PBCgyANz Z6CdxN9lRrCuFZMlWEFi K0VthJLgZTyaZ424QYno BpL1ZYHdbdBxO0Po JWHojFhuJaN4m5W5Ak8M u5DtjbhmUMD8JUojVJJp KpS1PnNkWeA7Q1AsFfq4 QECuyEwsFK3kI3Sl DGJoobjjrrhvxUD1QHLn QLDruX40jAItXJxsAw2x n0N0n815ZEGtCTVdrQ05 Pn4ueCgsVMLlkMDX yB6sszctm0cqsslyXfUw XGFyEAh0VUq8PJAsrIzn SqIqCGP8KkL0KHD3hNLw sV3qvKcbbfxusD1u Oyc+D39emJ4kTND6OYO7 gohvKJBdbyPoAK64XA07 J6KcIuyfsQLsePL+PGRp koJqqRvyGU3tRbIq b4xmg8VfHVhtU1LaGZNp JJnbApw8NNPlLEJ3wDV7 vJ1tVZItPWbtb0X1vNW7 G7HydmPdxp7ls7nd FFVbEBdqU77aeCBmz8K9 QSWmdQY8BMRhcKtnCjQu lW61Bwk+PRCwiPxcl9Fs Isaat5qcn4yieMj1 IjMwJSIgdmFsaWduPSJ0 w9UoPa53G12nWUtkRCFs IOPcBWHmHHSkxNjapn9k pK6qNs3+PGNvbCB3 bWI1pV1mMDRrOoO1THpc H273PaOjpQXyLkwns7bm a7rcgDk4AoIeAFYujbXy tWdzBXW1y6LoHq01 S47bSXywDIStGYRmOEPg CLBhxVotgq6ztA2eWk5+ QQ6jg8tlnm58vR52cWJ+ GNDiKMX4pJuoPZrc GZUyzL3vYJlsMrO9SJNz CvElaW75mQWdUTrxTk3z kSbwwEtwJA1iVTFoidzy d208ZqVxk3npAMUj dGXkQFygLQZ4L01zx3A6 PHNdOXZkOZD7yAS4pE7o bGlnbjogbGVmdDsgdmVy bYjvZZuiIHrsK581 IHRvcDsnPlBhdGllbnQg XyIoNUx9K3TyDzb6PUCe sZcoNE2ctQUxOToyZc3t cJnezFrdLD8sDJWx cuqsz787SaThg9asGJWj nRNaZJbmXZZ9V24bu5H2 ZZKnSLIuDAA6iUK1qS4o bGlnbjogbGVmdDsg cfAtwGvgWAppUMrmF568 IHRvcDsnPkJpcnRoIERh fGM4HU16PB02xDWmu2V1 aKJ5I3UgJIHdkvdz exqsvWQ2MUTbNUSqxS09 Up2lgWweTp2xQMUqXHA5 JLYizPZuH2DjpK5pYuAm TQAnPJKjI3EaeWWs ENsmK635PDwaCjB1KOLx yaYcE5LvHEZjcQsoAzX7 r1P1Km6DM1F7PA89FN04 vXFiw8W6sFY9N9Of PWXzoxdppervzGR6IBBj MEEohJ26Di8wyNhuIq9w UVGiIED2IDQqsRByQ3Ho qT6jGhLvRLLyISPq H3ScePVnFBdgZ331BIos LwU4ACTwkgSeX8JfLPTh jXnpKhC1e2W2Qi8GXFc8 ZR05YF99fGPpt3O8 lIY6D6VxLQVjvbcinqmc vGS8CLLxQIEbpJ71Ph1h zLfdQq1zDYWyKSP7WTXn hQXnU1OkfQ8fCuYn PFMjHOHwC4VitEPoIDtu U262WIbcToL9ORDhioTl W5VvHONnbRdrLfP5w2L8 Gv6HFZVaTX76AES4 lHV9QM88OH90Y6DrDqis dGFibGU+PHRhYmxlIHdp ZHRoPScxMDAlJyBzdHls LZ1xYv1oHCVfPKFg xWriiXCrBzMpy2lwGHYy SRfeET9utLscF1XrzHJ9 BARkw4i6Hi39U31jC5Eo dXA+UKVuaDE7hXV5 jY2oUvJgYkP5BQzlY272 MpRsfMCaVvrdx9awm7ic tQg9NcJ1PLEbarNjpLse ZPH6p8KdOd24K68z IHdpZHRoPSIxNSUiIHZh eEpwyn6mqA2tZx7+PGNv qID5fZK0xP6lIwHrCqI1 TBucA483RtWqyJJs Fivnl9pal9esiRg4WuDi FGMatfKimKnfDYZ5y4Vu Ih36J8CtzKzke7YhXqk9 qg50sRZfg7P4qGT4 T9ElIKIqxbzudVFsmWlj LF4hNCZfihezFHIbmT7i THJmV1x2RtCeGtX5VNfp W4JndzU3ZQIduKEb ATxxIWY8J84iy3X2MZJu ORCrLIT3eLF4jF7cnPlg bjogbGVmdDsgdmVydGlj YXouVRfbA321QOJc pYrxYISqaA5dYXSdjRLm lBnhHH5pMMXeovntIdrC OJGDVzrqP1BTWIlSOlmI QW31N1ExSaz3QERl pEfqSI3gvONoYBnoVu0q bMdhpHpsRK6fDXKkxsvb OUZseA6oNBCvmKNrbNks RZ2zJACeucglp621 AnNpDGT6RNOnfDPvN1Fb eR4vQfWzDDQsVEHaH0Dy jDPcGScuA649QNjsHoZ3 NKMhvoHjZ5CyJDZo qUvmKaS5i0H6Xm1cKr6o JC0qBCjjEB84RX66pBAb b5Z9iXV4L9RqZRUcksjm mzhijZM6CWLlWIId cB04mZSnUUetPz4fq8E1 x297YFZbBIGwyL02Ts1t yHtbYPLaoSLMuH0jatqz a1ncyxivTiYbAZBm YMw1YTo7JHYjhTfmHwCg CWJ2LdG3DGR2oRUnrX3a qRktlrttzC4lUff+NTAg YBUzwuZ5W0EiMmd4 JRUuaHwnFY4uoJQlQXzr De1unEwmvRqrLN0gZPYl bvzeEDNlkO3fKIQlxPBy wXpuXP8wNZKrtxyq w166HaFpXON2KXIlwDDi A6JkhF2jRsTdGTDsOICi C5OpbXKiYUptC021HYsx HaL3TNXwicBpP6Um PZKmkXgjGpJ7f6M1Dc9T CL7qoLK5P1EdOqj2XDNr aUxuTO1orUEjOCvkIc8a dMreeJfeKQ4oIJIg goaeVOAwwD2dYYKqbYUq cIgtFO3kMDZbjioia628 CcVjPDN5BFSjnDUzT1Xu aC7bAiUiDTUzIJNl T5WavHNtJCyqO421REvu ImR9BHCbreIeC3LsHRTh tJddAsD8q8E7Nz2HwHAi PVUqCC83VM69OE46 Q2XhElucfGYzvXK+PHRh YmxlIHdpZHRoPScxMDAl QuIqvCogHT4rHh2sBNLx LWNvbGxhcHNlOiBj o5zlJJReOWcoHL8qqYon J8CybVR8IUIfa2h3Aj92 X40rT8JvwHM+PGNvbCB3 vMV3wC3wQgTySxW6 NQogD056KgEpiBMcRtjq g6ubo9yrcQj1ZoPbKIFg mfOmpIprESU8p2ErLe32 P47qGWpnHSSqHKHk IVBvVOYngEmwjn4uwY8m Ii8+VZQccUP0fKU1fV7u DsPsWnO7LBqaE147GrRq hIZdWejfK15pM5Pd dXA+XYDvYzk3SJZndImi PH1wgAIrBRwxDv4aUJE9 SyCoDdCiQPmcT3KdJWTk hakplyrvrNE7GXWy SGTsiL38Fo4iqUdhJx3s XZQvTPF1PNErhNZyX8Rf pZ2nXcXeTKNqHKNcY0Ox iISdUOziT042LSts ZmQ8CYEvngWxH0RoPMJa aXdwHrR4d5I4Yo1EvAcx zVKcAA2wYjHdNZn4F5Ub Lvz9VFXebSrySZ8e nMUhETqaBd3kmGlpaXcf NI5wUYYuvoths247AoPp g8msUGOkrJNzSTiaIEZ0 I33su4F6MKNlIPTq MPY9yQA1dO4ryMdlqimw bGVmdDsgdmVydGljYWwt WFcyA457ZCKeaKfvIbBS Uaa0J6HiKwp8JRIa hLfpVR8tyAUaOWnjGg2z qPgbnAomGL3fTWZtbnoz c326XsVog3qcJCQevYFg AMaqUIJ4J75mk2B5 PQEsXRUxENX9bET2wY8m bGlnbjogbGVmdDsgdmVy fUeyYBitYFpbK129LDDt qBpiWy7EYga3H1Fs Oph7MHTcbUdnJZ0puYXz DOsqRd1wbPsapHdwPE6i YZXfkybjk365QuZqm0ld IDEwcHQgVGltZXM7 Z86ke5G4ZDJvVNXnFGK9 pMN4tV6tkEqmjswvcRWl dDsgdmVydGljYWwtYWxp U523BYPbuYmuUlJv eWVyOjwvdGQ+VX64hq96 G5SjPjmrIpr4YKFbPCW5 rNI0yA4gFGYaAFfes8Z9 wBQ5H2TqobMuxk1a b2xs (more content not included)... Normal [facility] Pre-Certification Formon Pre-Certification Form [id number] #1.00CD:127 [facility] Consent for Treatmenton Consent for Treatment [id number] #1.00CD:127 [facility] Heart and Vascular Office/Cl inic Noteon 08-08-2022 Heart and Vascular Office/Clinic Note Chief Complaint F/U testing History of Present Illness This is a 51-year-old lady with right lower extremity venous insufficiency status post injection sclerotherapy done more than a year and a half ago. She comes in today with severe venous eczema and itching and some ulcers. She uses compression stockings. She continues to have aggressive venous eczema and uses calamine cream and compression stockings. Venous ultrasound shows no significant reflux however she has varicosities at the vicinity of her lower leg and ankle.. Review of Systems PHQ Score Initial Depression Screen Score: 0 Constitutional: no fever, no chills, no sweats, no weakness Skin: no Jaundice, no rash, no lesions, nopetechiae ENMT: no ear pain, no sore throat, no congestion, no hoarseness Respiratory: no shortness of breath, no cough, no orthopnea, no wheezing Cardiovascular: no chest pain, no palpitations, no edema Gastrointestinal: no nausea, no vomiting, no diarrhea, no GI bleeding Genitourinary: no dysuria, no hematuria, no discharge, no pain Musculoskeletal: no back pain, no trauma Neurologic: no headache, no dizziness, no numbness, no weakness Psychiatric: no sleeping problems, no irritability, no mood swings/depression. Heme/Lymph: no bleeding tendency, no bruising tendency, no petechiae, no swollen nodes Allergy/Immunologic: no seasonal allergies, no food allergies, no recurrent infections, no impaired immunity Additional ROS info: Except as noted in the above Review of Systems and in the History of Present Illness all other systems have been reviewed and are negative or noncontributory. Physical Exam Vitals & Measurements HR: 72(Peripheral) BP: 139/97 SpO2: 98% HT: 66 in HT: 167 cm WT: 108.0 kg WT: 237.6 lb BMI: 38.72 General: alert, no acute distress Skin: warm, dry Head: no trauma, normocephalic Neck: Trachea midline, no adenopathy, no tenderness Eye: normal conjunctiva, sclera clear Cardiovascular: regular rate and rhythm, normal peripheral perfusion Respiratory: Lungs CTA, respirations non labored Chest wall: no deformity. Gastrointestinal: soft, non distended, no tenderness, no guarding. Back: No tenderness, Normal ROM, Normal alignment. Extremities: no edema,no deformity, no trauma Neurological: oriented x 4, LOC appropriate for age, motor strength equal & normal bilaterally, sensation equal & normal bilaterally, speech normal Psychiatric: cooperative, affect appropriate for age, normal judgement, normal psychiatric thoughts. Assessment/Plan 1. Varicose veins of bilateral lower extremities with other complications (I83.893: Varicose veins of bilateral lower extremities with other complications) Ultrasound-guided injection sclerotherapy. Continue compound cream and compression therapy and leg elevation weight loss. Follow-up No qualifying data available Problem List/Past Medical History Ongoing Allergic rhinitis Anemia Breast cancer screening History of left knee replacement Non-smoker Normocytic anemia Tenderness of lymph node Venous insufficiency Historical BACTERIAL PNEUMONIA, UNSPECIFIED Hypertension Microcytosis None Screening for cardiovascular condition Ventral hernia Procedure/Surgical History Revision (12/20/2020), Sclerotherapy (10/05/2020), left TKR (11/18/2016), knee arthroscope with partial medial meniscectomy and excision of loose body (08/18/2015), section, Cholecystectomy, incisional hernia repair. Medications albuterol HFA 90 mcg/inh MDI, 2 puff(s), Inhalation, QID, 2 refills lisinopril 10 mg Tab, 10 mg= 1 tab(s), Oral, Daily, 1 refills lisinopril 10 mg Tab, 10 mg= 1 tab(s), Oral, Daily, 4 refills Zoloft 50 mg Tab, 75 mg= 1.5 tab(s), Oral, Daily, 2 refills Allergies No Known Medication Allergies seasonal ,dust, mold (hayfever) Social History Alcohol - Denies Alcohol Use, 06/08/2018 1-2 times per month, 12/22/2020 Substance Abuse - Denies Substance Abuse, 01/21/2011 Tobacco - Denies Tobacco Use, 01/21/2011 Never (less than 100 in lifetime) Tobacco Use:. Never Smokeless Tobacco Use:. Household tobacco concerns: No., 08/08/2022 Never (less than 100 in lifetime) Tobacco Use:. Never Smokeless Tobacco Use:., 03/07/2021 Family History Bipolar: Sister. Depression: Mother. Depression: Child. Schizophrenia: Brother. Immunizations Vaccine Date Status influenza virus vaccine, inactivated 04/03/2021 Recorded SARS-CoV-2 (COVID-19) mRNA BNT-162b2 vax 09/08/2020 Recorded SARS-CoV-2 (COVID-19) mRNA BNT-162b2 vax 08/18/2020 Recorded influenza virus vaccine, inactivated 03/2019 Recorded Normal [facility] Comment on above: Result Comment: Elec tronically Signed By: Stanislaw CROCKER, Rita Long\.br\Date and Time Signed: 08/08/22 15:58 EST Physician Orderon 08-08-2022 Physician Order [id number] #1.00CD:127 Normal [facility] CNOVon 02-22-2022 CNOV Office Visit (LOORRM) JESSNEIA WING ([id number]) 1970 F Date Time Provider Department 02/22/22 2:30 PM AUGUSTUS PEREIRA During your visit today, we recorded the following information about you: Augustus Pereira MD 02/22/2022 2:48 PM Signed This document has been created with the use of voice recognition technology. It may contain inaccuracies: misspellings, inaccurate syntax or word sense that escaped review. CHIEF COMPLAINT: Jessenia Wing is a 51 year old female who presents today for follow up of revision left total knee replacement. HISTORY OF PRESENT ILLNESS: PAIN EVALUATION 02/22/2022 1430 Pain Level: 4 Pain Location: Knee-Left Description: Other: See comment clicking, rubbing Duration Amount of Time: 1 Duration Units: Weeks Frequency: Intermittent Intervention/Comfort measure: Medication;Repositio n;Relaxation;Positio yamileth HISTORY: Jessenia Wing is here for follow up of complaints of left knee pain. She has postoperative left total knee replacement with subsequent revision for aseptic loosening with date of surgery for the revision 12/20/2020. She states that she has noted some discomfort over the medial and lateral tibia for the last week. There is no history of any injury. No instability. No fevers or chills or constitutional symptoms. 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 No hip or neurologic complaints. Has been taken some ibuprofen. No other musculoskeletal complaints ROS: REVIEW OF SYMPTOMS: Constitutional: patient denies any recent fever or significant change in weight Gastrointestinal: patient denies any current abdominal discomfort Musculoskeletal: as noted in the HPI Neurologic: as noted in the HPI SOCIAL HISTORY: Tobacco Use: Never ALLERGIES: ALLERGIES No Known Allergies PAST MEDICAL HISTORY: PAST MEDICAL HISTORY Diagnosis Date Asthma Congenital absence of one kidney HTN (hypertension) Muscular abdominal pain in right flank 04/30/2012 OA (osteoarthritis) of knee Obesity Pneumonia 2011 S/P repair of recurrent ventral hernia 01/27/2012 SOCIAL HISTORY: Tobacco Use: Never EXAMINATION: GENERAL: Appears healthy, well-nourished, no deformities. ORIENTATION: Alert and oriented to person place and time HABITUS: Normal GAIT: Normal, the patient did not have trouble getting onto the exam table. left knee exam: Healed midline incision No effusion, No tenderness with patellar apprehension Neutral alignment Active full extension, flexion 115. Good patellar tracking/no patella femoral crepitation Some tenderness over the medial lateral tibial plateaus with some mild crepitation Stable to varus and valgus stresses. Stable anterior/posterior drawer. Palpable dorsalis pedis pulse Calf soft and nontender. Hip exam negative Intact sensation to light touch distally. RADIOGRAPHS: XR Obtained today and personally reviewed by myself demonstrating revision total knee prosthesis. Medial augment with femoral and tibial stems. No evidence of loosening. IMPRESSION: Encounter Diagnosis ICD-10-CM 1. S/P revision of total knee, left Z96.652 Procedures Plan: Patient postoperative revision total knee replacement. Has some irritation around the tibial prosthesis. Recommend conservative treatment with activity modification, ice, [id number] NSAID. If this becomes more significant she will return for follow-up Follow-up as symptoms dictate Augustus Pereira MD Referring Provider: NO PCP [[id number]] Allergies As of Date: 02/22/2022 (No Known Allergies) Date Reviewed: 02/22/2022 Reviewed by: Maureen Engel MA - Fully Assessed Reason for Visit: Knee Pain [132] Primary Visit Diagnosis:S/P revision of total knee, left [Z96.652] Prescriptions as of 02/22/2022 - aspirin, enteric coated (ECOTRIN LOW STRENGTH) 81 mg EC tablet Take 1 tablet by mouth twice daily. - pantoprazole DR (PROTONIX) 20 mg tablet Take 1 tablet by mouth once daily for 14 days. - sertraline (ZOLOFT) 50 mg tablet TAKE 1 AND 1 2 (ONE AND ONE HALF) TABLETS BY MOUTH ONCE DAILY - lisinopril (ZESTRIL, PRINIVIL) 10 mg tablet Take 10 mg by mouth once daily. - hydroCHLOROthiazide (HYDRODIURIL, ESIDRIX) 12.5 mg tablet Take 12.5 mg by mouth. - lisinopril-hydrochlo rothiazide (PRINZIDE, ZESTORETIC) 20-25 mg per tablet Take 1 tablet by mouth once daily. - mometasone-formotero l (DULERA) 100-5 mcg/actuation inhaler Inhale 2 Puffs as instructed twice daily. Problem List As Of Date 02/22/2022 Noted Resolved S/P repair of recurrent ventral hernia [Z98.890*01/27/2012 Muscular abdominal pain in right flank [M79.18] 04/30/2012 Primary osteoarthritis of left knee [M17.12] 02/09/2016 Patellofemoral syndrome of left knee [M22.2X2] 02/09/2016 Asthma [J45.909] Obesity [E66.9] OA (osteoarthritis) of (more content not included)... Normal [facility] XR KNEE 3V AP/LAT/MERCHANT L Ton 02-22-2022 XR KNEE 3V AP/LAT/MERCHANT LT * * *Final Report* * * DATE OF EXAM: Feb 22 2022 2:28PM LZX 5208 - XR KNEE 3V AP/LAT/MERCHANT LT / PROCEDURE REASON: S/P revision of total knee, left * * * * Physician Interpretation * * * * HISTORY: S/P revision of total knee, left . TECHNIQUE: XR KNEE 3V AP/LAT/MERCHANT LT Laterality: LEFT Number of different views (projections): 3 COMPARISON: Radiographs dated 06/01/2021 RESULT: Revised left total knee arthroplasty with no change in the hardware. There is cortical thickening in the lateral tibial metaphysis at the level of the prosthesis stem tip, consistent with stress changes. There is no acute fracture or dislocation. There is right patellofemoral degenerative arthritis. There is no soft tissue swelling. No other significant abnormality. ----- IMPRESSION: No acute findings. Casting Technician: PSCB Transcribe Date/Time: Feb 22 2022 2:43P Dictated by : CANDY FORMAN MD This examination was interpreted and the report reviewed and electronically signed by: CANDY FORMAN MD on Feb 22 2022 2:47PM EST [id number] Normal [facility] XR KNEE POST OP 3V AP/LAT/ME RCHANT LEFTon 02-22-2022 [facility] [place] HEMATOLOGYOrdered By: Eloina Tinoco on 11-14-2021 Erythrocyte distribution width (RBC) [Ratio] 15.2 % High 10.9 - 14.2 % [facility] HemeAutoSS Hematocrit (Bld) [Volume fraction] 35.5 % Normal 34.0 - 46.0 % [facility] HemeAutoSS Hemoglobin (Bld) [Mass/Vol] 12.3 g/dL Normal 12.0 - 16.0 gm/dL [facility] HemeAutoSS MCH (RBC) [Entitic mass] 27.8 pg Normal 27.0 - 34.0 pg [facility] HemeAutoSS MCHC (RBC) [Mass/Vol] 34.5 g/dL Normal 31.4 - 36.0 gm/dL [facility] HemeAutoSS MCV (RBC) [Entitic vol] 80.6 fL Normal 80.0 - 100.0 fL [facility] HemeAutoSS Platelet mean volume (Bld) [Entitic vol] 8.0 fL Normal 6.4 - 10.8 fL [facility] HemeAutoSS Platelets (Bld) [#/Vol] 164.0 E9/L Normal 150.0 - 500.0 E9/L [facility] HemeAutoSS RBC (Bld) [#/Vol] 4.4 E12/L Normal 4.3 - 5.9 E12/L [facility] HemeAutoSS WBC corrected for nucl RBC Auto (Bld) [#/Vol] 5.6 E9/L Normal 4.0 - 11.0 E9/L [facility] HemeAutoSS CHEMISTRYOrdered By: SYSTEM SYSTEM on 11-06-2021 Ferritin [Mass/Vol] 26 ng/mL Normal 11 - 307 ng/mL F [facility] Remisol Iron [Mass/Vol] 53 ug/dL Normal 35 - 153 mcg/dL [facility] Remisol Iron binding capacity [Mass/Vol] 360 ug/dL Normal 250 - 400 mcg/dL [facility] Remisol Transferrin [Mass/Vol] 257 mg/dL Normal 200 - 370 mg/dL [facility] Remisol HEMATOLOGYOrdered By: Jaida Bauman on 11-06-2021 Reticulocytes/100 RBC (Bld) 2.0 % High 0.5 - 1.5 % [facility] HemeAutoSS Basic Metabolic Panlon 12-21 Anion gap [Moles/Vol] 12 mmol/L Normal 9-18 [facility] Comment on above: Performed By: #### C BC, BMP ####[place] [phone] Calcium [Mass/Vol] 8.5 mg/dL Normal 8.5-10.2 [facility] Comment on above: Performed By: #### C BC, BMP ####[place] [phone] Chloride [Moles/Vol] 104 mmol/L Normal 97-105 [facility] Comment on above: Performed By: #### C BC, BMP ####[place] [phone] CO2 [Moles/Vol] 23 mmol/L Normal 22-30 [facility] Comment on above: Performed By: #### C BC, BMP ####[place] [phone] Creatinine [Mass/Vol] 0.79 mg/dL Normal 0.58-0.96 [facility] Comment on above: Performed By: #### C BC, BMP ####[place] [phone] eGFR- Amer. >60 Normal >60 [facility] Comment on above: Performed By: #### C BC, BMP ####[place] [id number] eGFR-All Other Races >60 Normal >60 [facility] Comment on above: Result Comment: eGFR (Estimated GFR) Units of measure: mL/min/1.73 meters squared eGFR is derived from the reexpressed MDRD Study equation using the following parameters: serum creatinine, age, gender and race. The creatinine assay has been calibrated to be traceable to IDMS. An eGFR <60 mL/min/1.73m2 for >3 months is consistent with chronic kidney disease. Refer to KDOQI guidelines for clinical interpretation. In patients with unstable renal function, e.g. those with acute kidney injury, the eGFR may not accurately reflect actual GFR. Performed By: #### C BC, BMP ####[address], [place] [phone] Glucose [Mass/Vol] 127 mg/dL High 74-99 [facility] Comment on above: Performed By: #### C ANMOL, BMP ####[id number] [phone] Potassium [Moles/Vol] 4.6 mmol/L Normal 3.7-5.1 [facility] Comment on above: Performed By: #### C ANMOL, BMP ####[place] [id number] [address] [phone] Sodium [Moles/Vol] 139 mmol/L Normal 136-144 [facility] Comment on above: Performed By: #### C ANMOL, BMP ####[place] [id number] [address] [phone] Urea nitrogen [Mass/Vol] 12 mg/dL Normal 7-21 [facility] Comment on above: Performed By: #### Js COREA, BMP ####[facility] [phone] CASE MANAGEMon 12-21-2020 CASE MANAGEM HNO ID: [id number] Author: Kirstie Mcfarlane RN Service: Case Management Author Type: Registered Nurse Type: Care Mgt Progress Note Filed: 12/21/2020 1:02 PM Note Text: CARE MANAGEMENT DISCHARGE NOTE SERVICE DATE: 12/21/2020 SERVICE TIME: 1:00 pm LOS: 0 days Admission Date: 12/20/2020 DISCHARGE ARRANGEMENT (list agency and phone number) Discharge Arrangement: Home CAREGIVER ASSESSMENT: Caregiver is ready, willing and able to meet the patient's needs as recommended by the inter-professional team:: No Caregiver needed Does the patient have an acute stroke diagnosis, or has the patient had a stroke during this admission?: No Patient's transition needs and plan for meeting these needs: still waiting for therapy recommendations. If home therapy is recommended patient is agreeable to having [facility] to provide this service as they did following her initial knee surgery in November 2020. TRANSPORTATION ARRANGEMENTS: Transportation Arrangements: Car ADDITIONAL CONTACT RESOURCES Discharge home. No home care needs. SIGNATURE: Kirstie Mcfarlane RN PATIENT NAME: Jessenia Tovar [place] DATE: December 21, 2020 TIME: 1:01 PM PAGER/CONTACT #: [phone] [facility] CASE MGT INALICE [place] 2020 CASE MGT INIT POOJA HNO ID: [id number] Author: Kirstie Mcfarlane RN Service: Case Management Author Type: Registered Nurse Type: Care Mgt Initial Assessment Filed: 12/21/2020 9:33 AM Note Text: CARE MANAGEMENT: ASSESSMENT AND DISCHARGE PLAN SERVICE DATE: December 21, 2020 SERVICE TIME: 9:30 am PRIMARY CARE PHYSICIAN: No primary care provider on file. Phone: None ADMISSION STATUS: Extended Recovery Needs Prior to Discharge: OT/PT Evaluation MEDICAL: MMO SUPERMED PLUS Patient/Representati ve Stated Goals: To have reduction in symptoms;To improve my functional status Health Insurance: [employer] Health Issues Impacting Discharge Plan: Chronic Chronic: htn, asmtha Last Discharge Date: 11/19/16 Is this Within the Past 30 days? Last discharge within 30 days: No Advance Directive: Current Advance Directive: Health Care Power of Drapery Maker In Chart: Yes Up To Date and Valid: Yes Health LiteracyHow often do you need to have someone help you when you read instructions, pamphlets, or other written material from your doctor or pharmacy? : 1 - Never How confident are you filling out medical forms by yourself?: 1 - Extremely Baseline Mental Status Prior to this Illness what was the patient's Baseline Mental Status?: Alert AND Oriented Prior to this illness, has anyone described the patient having any of the following behaviors?: Not Applicable Relationship of the informant to the patient:: Self Functional Status: Independent Does Patient Currently Receive Any Community Services or Home Care?: None Equipment Prior to Admission: Walker Has the Patient Been in a Mcfp Facility in the Past 30 days?: No SOCIAL: Living Arrangements: Home Lives With: Spouse Financial Resources: Employed Primary Contact: Extended Emergency Contact Information Primary Emergency Contact: Orlando Wing Address: [address] [place] [address] [facility] Mobile Relation: Spouse Supportive Patient Contact:: Yes Contact Resources: Family Caregiver AssessmentCaregiver is ready, willing and able to meet the patient's needs as recommended by the inter-professional team:: No Caregiver needed Does the patient have an acute stroke diagnosis, or has the patient had a stroke during this admission?: No Patient's transition needs and plan for meeting these needs: still waiting for therapy recommendations. If home therapy is recommended patient is agreeable to having [facility] to provide this service as they did following her initial knee surgery in November 2020. Patient's perception of need for this admission: knee revision Medication Adherance I am convinced of the importance of my prescription medication: 0 - Agree Completely I worry that my prescription medication will do more harm than good to me : 0 - Disagree Completely I feel financially burdened by my [id number] expenses for my prescription medication:: 0 - Disagree Completely Risk Score: 0 Patient is categorized as: Low risk < 2 Are you interested in bedside delivery of your medications? Yes Is Patient Psychosocially Complex?: No ASSESSMENT AND PLAN: Medical Needs: Medical Needs: None Psychosocial Needs: Psychosocial Needs: None FREEDOM OF CHOICE EXPLAINED: [place] of Choice Given: Yes Level of Care Discussed: Home Care Financial Disclosure Provided: No Provider list within the patient's requested geographic area shared with the patient/family: No Quality and resource use metrics shared with the patient that are relevant to the patient's goals of care and treatment preferences:: No Reason: if home therapy is recommended patient would like [facility] to provide this service as they did after her initial knee surgery in November 2020 POTENTIAL TRANSITION PLANS To Be Determined Patient had left knee replacement in November 2020. Here because of aseptic loosening of knee revision. She has a walker. Waiting for therapy to assess for any home therapy needs. SIGNATURE: Kirstie Mcfarlane RN PATIENT NAME: Jessenia Srivastavar DATE: December 21, 2020 TIME: 9:30 AM PAGER/CONTACT #: [phone] Normal [facility] CBCon 12-21-2020 Absolute nRBC <0.01 Normal <0.01 [facility] Comment on above: Performed By: #### C [place] ####[facility] [phone] Erythrocyte distribution width (RBC) [Ratio] 15.4 % High 11.5-15.0 [facility] Comment on above: Performed By: #### C ANMOL, SANTA ####[address] Hematocrit (Bld) [Volume fraction] 29.8 % Low 36.0-46.0 [facility] Comment on above: Performed By: #### C ANMOL, BMP ####[address] Hemoglobin (Bld) [Mass/Vol] 9.3 g/dL Low 11.5-15.5 [facility] Comment on above: Performed By: #### C ANMOL, BMP ####[address] MCH 26.9 pG Normal 26.0-34.0 [facility] Comment on above: Performed By: #### C ANMOL, BMP ####[address] MCHC (RBC) [Mass/Vol] 31.2 g/dL Normal 30.5-36.0 [facility] Comment on above: Performed By: #### C ANMOL, BMP ####[address] MCV (RBC) [Entitic vol] 86.1 fL Normal 80.0-100.0 [facility] Comment on above: Performed By: #### C ANMOL, BMP ####[address] Platelet mean volume (Bld) [Entitic vol] 10.6 fL Normal 9.0-12.7 [facility] Comment on above: Performed By: #### C ANMOL, BMP ####[address] Platelets (Bld) [#/Vol] 110 10*3/uL Low 150-400 [facility] Comment on above: Performed By: #### C ANMOL, BMP ####[address] RBC (Bld) [#/Vol] 3.46 10*6/uL Low 3.90-5.20 [facility] Comment on above: Performed By: #### C BC, BMP ####[facility] [phone] WBC (Bld) [#/Vol] 6.64 10*3/uL Normal 3.70-11.00 [facility] Comment on above: Performed By: #### C BC, BMP ####[facility] [phone] CNDSon 12-21-2020 CNDS HNO ID: [id number] Author: Stanley Bunch PA-C Service: Orthopaedic Surgery Author Type: Physician Tilesetter Type: Discharge Summary Filed: 12/21/2020 9:31 AM Note Text: Attestation signed by Rex Meredith Jr., MD at 12/21/2020 10:11 AM agree DISCHARGE SUMMARY Patient Name: Jessenia Wing : 1970 ADMISSION DATE: 12/20/2020 DISCHARGE DATE: 12/21/20 Attending Physician: Rex Meredith Jr., MD Primary Diagnosis: Failure of total knee replacement, 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[facility]) [T84.193A, Z96.474] Operations During Hospitalization: Procedure(s) (LRB): REVISION JOINT TOTAL KNEE FEMORAL AND ENTIRE TIBIAL COMPONENT (Left) Procedures During Hospitalization: No procedures performed Hospital Course: Jessenia is a 50 year old female complaining of left Knee pain not responsive to a comprehensive course of conservative treatment. Left knee revision total arthroplasty was proposed and the patient wishes to proceed and was medically cleared prior to the procedure. Patient underwent a Left knee revision total arthroplasty and was transferred to the PACU in stable condition, She was then admitted to the hospital. Post operatively She did well. Post-operative HgB was stable and within acceptable range and remained there throughout the hospital stay not requiring transfusion. Wound was without sign of infection. She was able to actively participate in a physical and occupational therapy program for gait training and mobilization. Due to the operative findings and procedure performed which is consistent with a major orthopedic procedure, the postoperative analgesia will exceed the allowable morphine equivalent dose. Patient Condition at Discharge: Stable Discharge Disposition: Home with Home Health Care Discharge Medications: Jessenia Wing Home Medication Instructions JOE:[id number] Printed on:12/21/20 7450 Medication Information acetaminophen (TYLENOL EXTRA STRENGTH) 500 mg tablet Take 2 tablets by mouth three times daily for 7 days. aspirin, enteric coated (ECOTRIN LOW STRENGTH) 81 mg EC tablet Take 1 tablet by mouth twice daily. docusate sodium (COLACE) 100 mg capsule Take 1 capsule by mouth twice daily. hydroCHLOROthiazide (HYDRODIURIL, ESIDRIX) 12.5 mg tablet Take 12.5 mg by mouth. lisinopril (ZESTRIL, PRINIVIL) 10 mg tablet Take 10 mg by mouth once daily. lisinopril-hydrochlo rothiazide (PRINZIDE, ZESTORETIC) 20-25 mg per tablet Take 1 tablet by mouth once daily. meloxicam (MOBIC) 15 mg tablet Take 1 tablet by mouth once daily for 14 days. mometasone-formotero l (DULERA) 100-5 mcg/actuation inhaler Inhale 2 Puffs as instructed twice daily. oxyCODONE IR (ROXICODONE) 5 mg immediate release tablet Take 1-2 tablets by mouth every 4 hours as needed for pain for up to [address] (PROTONIX) 20 mg tablet Take 1 tablet by mouth once daily for 14 days. sertraline (ZOLOFT) 50 mg tablet TAKE 1 AND 1 2 (ONE AND ONE HALF) TABLETS BY MOUTH ONCE DAILY Future Appointments: Appointments for Next 60 Days Date Time Provider Location Dept Phone 01/11/2021 11:30 AM DEISY GONZALEZ [phone] SIGNATURE: Stanley Bunch PA-C PATIENT NAME: Jessenia Wing DATE: 12/21/2020 TIME: 9:31 AM PAGER/CONTACT #: [phone] [facility] CONSULT PROGon 12-21-2020 CONSULT PROG HNO ID: [id number] Author: Toan Can MD Service: General Internal Medicine Author Type: Physician Type: Consult Progress Note Filed: 12/21/2020 11:54 AM Note Text: CONSULT NOTE - INTERNAL MEDICINE PATIENT NAME: Jessenia Wing SERVICE DATE: 12/21/2020 SERVICE TIME: 11:30 AM ADMITTING PHYSICIAN: Rex Meredith Jr., MD SUBJECTIVE: Patient denies any CP, SOB, Dizziness, Palpitations, Abdominal Pain, Nausea or Vomiting. She is passing flatus, denies any urinary problems Her pain is controlled well OBJECTIVE PHYSICAL EXAM: Patient Vitals for the past 24 hrs: BP Temp Temp src Pulse Resp SpO2 Height Weight 12/21/20 0814 113/69 36.8 ?C (98.2 ?F) Oral (!) 53 16 94 % ? ? 12/21/20 0418 127/87 36.6 ?C (97.9 ?F) Oral (!) 53 16 94 % ? ? 12/21/20 0012 125/81 36.7 ?C (98.1 ?F) Oral (!) 50 16 98 % ? ? 12/20/202032 121/82 36.5 ?C (97.7 ?F) Rectal (!) 54 17 97 % ? ? 12/20/20 1900 ? ? ? 61 16 98 % ? ? 12/20/20 1737 ? 167.6 cm (5' 5.98 ) 99.8 kg (220 lb 0.3 oz) 12/20/20 1717 123/79 36.6 ?C (97.9 ?F) Oral 62 17 98 % ? ? 12/20/20 1659 108/70 36.1 ?C (97 ?F) Temporal (!) 58 12 98 % ? ? 12/20/20 1651 101/68 ? 97 % ? ? 12/20/20 1645 93/65 ? ? 62 13 94 % ? ? 12/20/20 1630 102/73 36.7 ?C (98.1 ?F) Temporal (!) 52 21 100 % ? ? 12/20/20 1615 114/71 ? ? (!) 52 10 99 % ? ? 12/20/20 1601 106/73 36.1 ?C (97 ?F) Temporal ? 7 100 % ? ? 12/20/20 1225 ? 16 ? ? ? 12/20/20 1155 ? 14 ? ? ? 12/20/20 1150 ? 14 ? ? ? 12/20/20 1145 ? 14 ? ? ? Body mass index is 35.53 kg/m?. GENERAL: no distress LUNGS: Lungs clear to auscultation, Fair air entry. CARDIAC: normal S1 and S2; no rubs or gallops ABDOMEN: Abdomen soft, non-tender. BS normal. EXTREMETIES: Normal ankle DF Bilateral Problem List ACTIVE PROBLEM LIST S/P Repair of Recurrent Ventral Hernia Muscular Abdominal Pain in Right Flank Primary Osteoarthritis of Left Knee Patellofemoral Syndrome of Left Knee Asthma Obesity Oa (Osteoarthritis) of Knee Status Post Total Left Knee Replacement Hypertension Congenital Absence of One Kidney Obesity, Class II, Bmi 35-39.9 S/P Revision of Total Knee, Left DATA: Diagnostic tests reviewed for today's visit: Most recent labs: CBC, Coags, BMP, Mg, Phos Recent Labs 12/21/20 0310 12/20/20 1630 WBC 6.64 6.04 HB 9.3* 10.4* HCT 29.8* 33.1* PLT 110* 120* NA 139 144 K 4.6 5.0 CHLOR 104 111* CO2 23 23 BUN 12 9 CREAT 0.79 0.73 GLUC 127* 140* CA 8.5 8.5 Assessment/Plan: 1. Status post left TKR: She is doing well with therapy. She is comfortable with plans for discharge to home today 2. Hypertension, essential: Continue lisinopril/hydrochlo rothiazide 3. Asthma, mild persistent: Remains stable without any new symptoms. 4. Bradycardia, mild: Patient remains asymptomatic. ? SIGNATURE: Toan Can MD DATE: December 21, 2020 TIME: 11:30 AM This note was partially created using voice recognition software and is inherently subject to errors including those of syntax and sound-alike substitutions which may escape proofreading. In such instances, original meaning may be extrapolated by contextual derivation [facility] THERAPY NTon 12-21-2020 THERAPY NT HNO ID: [id number] Author: Paige Stockton OTR/L Service: Occupational Therapy Author Type: Occupational Therapist Type: Therapy (PT/OT/Speech/Resp) Filed: 12/21/2020 12:41 PM Note Text: Occupational Therapy Evaluation SERVICE DATE: 12/21/2020 SERVICE TIME: 1151 to 1206 ROOM: [place] [id number] Recommended Discharge Disposition: Home Anticipated Discharge Needs: Physical Assist at Home Physical Assist at Home for: Cleaning;Laundry;Sta irs;Self Care;Shopping;Transp ortation OT 6 Clicks Score: 24 Patient is safe to DC to home from OT perspective. No further OT services required. Precautions/Activity Restrictions: Total Knee Replacement;Weight Bearing Restrictions Precaution/Activity Restriction Comments: ambulate in room/on unit with walker and staff assist Extremity With Weight Bearing Restricted: Left Lower Extremity Left Lower Extremity Weight Bearing Status: WBAT Current Hospital Course: 50 y.o female admitted 12/20/2020 s/p Revision L TKR Reason for Hospital Admission: Revision L TKR Relevant Past Medical History: OA, asthma, obesity, L TKR Response to Therapy Interventions: On-track to achieve discharge goals, Good participation in activities, Pain, Requires additional time to complete activities Occupational Therapy Problem List: Safety Deficits;Impaired Self Prison Environment Patient Lives With: Family Assistance Available: PRN Entry To Home: Stairs;Without Rail Number Of Stairs Into Home: 2 Number Of Stairs To Bed/Bath: 1/2 bath on 1st floor, 11 steps to 2nd floor bed and bath Stairs to Bed/Bath with: Unilateral Rail Tub/Shower Type: tub/shower Laundry: 1st floor Equipment Owned: Standard Walker;Wheeled Walker;Crutch(es);Ca ne Prior Functional Level: Within Functional Limits Prior Functional Level Comments: ambulated without AD Patient Report: understands OT education CURRENT FUNCTIONAL STATUS: Most recent performance Current Activities of Daily Living Assist Level Additional Information Feeding Set Up Grooming Set Up Bathing Upper Body Set Up Bathing Lower Body Set Up Dressing Upper Body Set Up Dressing Lower Body Set Up Toileting Modified Independent Instrumental Activities of Daily Living Assist Level Additional Information Meal/Beverage Prep Cleaning Laundry Medication Management with Strategies Functional Mobility Assist Level Additional Information Rolling Supine to Sit Sit to Supine Scooting Sit to Stand Modified Independent Stand to Sit Modified Independent Bed to Chair Modified Independent Wheeled Walker Toilet/Commode Modified Independent Shower Functional Mobility Supervision Wheeled Walker Blank tim indicate activity not attempted Learning/Educational Needs: Functional Activities/Mobility; Pain Management;Precautio ns;Safety;Self Care Goals for Plan of Care: Patient /Caregiver Goals: Go Home Goals: Patient will demonstrate progress with self-care, cognitive and/or coping needs identified to allow safe discharge to home with available support and/or physical assistance. Patient will be discontinued from Occupational Therapy when no further skilled needs are identified in this setting. PLAN: OT Frequency: Discontinue therapy services Reasons Therapy Services Discontinued: Goals met Plan of Care developed with: Patient TREATMENT INTERVENTIONS: Therapy Diagnosis: Reduced mobility-other;Decre ased activities of daily living (ADL) Interventions Provided: Evaluation $ Evaluation-Low (87504) Billed Units: 1 unit Training AND education provided in: Activity adaption / compensatory strategies, Assistive device use, Grooming tasks, Lower extremity bathing, Lower extremity dressing, Precautions/restrict ions, Role of Occupational Therapy, Transfer - Bed to chair, Transfer - Car, Transfer - Sit to stand, Transfer - Toilet/commode, Upper extremity bathing, Upper extremity dressing The following therapeutic skills were used: Teach-back for education, Cuing verbal Total Treatment Time (minutes): 15 Please see discipline specific clinical documentation flowsheet for complete details for this therapy evaluation/treatment . SIGNATURE: JEANNE Carrera/Susan PATIENT NAME: Jessenia Wing DATE: December 21, 2020 TIME: 12:40 PM [facility] THERAPY NT HNO ID: [id number] Author: Kirsten Uriostegui, VERÓNICA Service: Physical Therapy Author Type: Physical Therapist Type: Therapy (PT/OT/Speech/Resp) Filed: 12/21/2020 12:06 PM Note Text: Physical Therapy Evaluation SERVICE DATE: 12/21/2020 SERVICE TIME: 1059 to 1140 ROOM: [id number] Recommended Discharge Disposition: Outpatient Physical Therapy. Pt with appointment set for 01/01/2021 Anticipated Discharge Needs: Physical Assist at Home Physical Assist at Home for: Cleaning;Laundry;Sta irs;Self Care;Shopping;Transp ortation Recommended Discharge Equipment: No equipment needs anticipated PT 6 Clicks Score: 24 Pt presents with impaired tolerance to activity, functional mobility and L knee strength/ROM following revision L TKR. Pt requires skilled PT for post op TKR education, exercises and progression of mobility. Pt able to participate throughout session and stair training though with c/o significant pain and intermittent nausea. Nurse notified. Pt cleared from PT standpoint for D/ C home today with family assist and outpatient PT. Precautions/Activity Restrictions: Total Knee Replacement;Weight Bearing Restrictions Precaution/Activity Restriction Comments: ambulate in room/on unit with walker and staff assist Extremity With Weight Bearing Restricted: Left Lower Extremity Left Lower Extremity Weight Bearing Status: WBAT Current Hospital Course: 50 y.o female admitted 12/20/2020 s/p Revision L TKR Reason for Hospital Admission: Revision L TKR Relevant Past Medical History: OA, asthma, obesity, L TKR Response to Therapy Interventions: Good participation in activities, On-track to achieve discharge goals Continue skilled needs due to: Functional mobility/skill impairments Physical Therapy Problem List: Pain;Impaired Self Care;Decreased Activity Tolerance;Decreased Range Of Motion;Decreased Strength;Functional Mobility Impairment;Balance Impaired Treatment Interventions: Self Care / Home Management;Education ;Energy Conservation Training;Joint Mobility;Strengtheni ng;Functional Mobility Training;Balance Training;Modalities Modalities: Ice Plan for next visit: Gait training, Stairs training, Exercise instruction/handout Home Environment Patient Lives With: Family Assistance Available: PRN Entry To Home: Stairs;Without Rail Number Of Stairs Into Home: 2 Number Of Stairs To Bed/Bath: 1/2 bath on 1st floor, 11 steps to 2nd floor bed and bath Stairs to Bed/Bath with: Unilateral Rail Tub/Shower Type: tub/shower Laundry: 1st floor Equipment Owned: Standard Walker;Wheeled Walker;Crutch(es);Ca ne Prior Functional Level: Within Functional Limits Prior Functional Level Comments: ambulated without AD Patient Report: It really hurts to bend it CURRENT FUNCTIONAL STATUS: Most recent performance Current Functional Mobility Assist Level Additional Information Rolling Supine to Sit Modified Independent Sit to Supine Scooting Modified Independent Sit to Stand Supervision Stand to Sit Supervision Bed to Chair Supervision Bed To Chair Transfer Type: Stepping Bed To Chair Transfer Equipment: Wheeled Walker Toilet/Commode Modified Independent Gait Supervision Gait Device: Wheeled Walker Gait Distance (feet): 175 feet x 2 Stairs Stand By Assistance Stairs Device: Cane;Rail (VCs for assist oon entry stairs) Number of Stairs: 3 Curb Step Car Transfer Blank tim indicate activity not attempted Gait Deviations Left Lower Extremity: Foot clearance decreased;Stance time decreased;Step length decreased;Heel strike during initial stance decreased General Deviations/Observati ons: Gayatri decreased;UE weight bearing on assistive device excessive (initiating step thru with increased distance) -HLM: 8: Walk 250 feet or more Learning/Educational Needs: Discharge Plan;Equipment;Funct ional Activities/Mobility; Plan of Care;Precautions;Alonzo abilitation Techniques and Procedures;Safety Goals for Plan of Care: Patient /Caregiver Goals: Walk Goals: Patient will demonstrate progress with functional mobility to allow safe discharge to home with available support and/or physical assistance.;Patient will demonstrate understanding of importance of mobility during hospital stay and resolve all functional needs identified. Ambulate up and down steps with: Supervision Number of steps: 9 Device: Cane;Rail ROM: 0-80* Rehab Potential: Good Patient will be discontinued from Physical Therapy when no further skilled needs are identified in this setting. PLAN: PT Frequency: Once daily Plan of Care developed with: Patient TREATMENT INTERVENTIONS: Therapy Diagnosis: Reduced mobility-other;Diffi culty walking-musculoskele carol Interventions Provided: Evaluation;Therapeut ic Exercise (17852);Gait Training (65791) $ Evaluation-Low (41866) Billed Units: 1 unit Therapeutic Exercise (06640) Treatment Minutes: 10 $ Therapeutic Exercise (62419) Billed Units: 1 unit Gai (more content not included)... [facility] ANES POSTPROC EVALon 021 ANES POSTPROC EVAL HNO ID: [id number] Author: Zeke Prajapati II, DO Service: Anesthesiology Author Type: Anesthesiologist Type: Anesthesia Postprocedure Evaluation Filed: 12/20/2020 4:27 PM Note Text: POST ANESTHESIA EVALUATION NOTE : 1970 Procedure Summary Date: 12/20/20 Room / Location: OR / OR Anesthesia Start: 1223 Anesthesia Stop: 1607 Procedure: REVISION JOINT TOTAL KNEE FEMORAL AND ENTIRE TIBIAL COMPONENT (Left Knee) Diagnosis: Failure of total knee replacement, 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HCC) (Failure of total knee replacement, 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HCC) [T84.018A, Z96.659]) Surgeons: Rex Meredith Jr., MD Responsible Provider: Zeke Prajapati II, DO Anesthesia Type: spinal, regional ASA Status: 3 Anesthesia Type: spinal, regional Last vitals Vitals Value Taken Time BP 114/71 12/20/20 1615 Temp 36.1 ?C (97 ?F) 12/20/20 1601 Pulse 50 12/20/20 1626 Resp 14 12/20/20 1626 SpO2 100 % 12/20/20 1626 Vitals shown include unvalidated device data. Post Anesthesia Patient Status Patient Evaluation: bedside. Intraoperative Events: no significant anesthesia events Recommendation: continue current plan of care. No complications documented. SIGNATURE: Zeke Prajapati II, DO PATIENT NAME: Jessenia Wing DATE: December 20, 2020 TIME: 4:27 PM CSN: [id number] [facility] ANES PRE-OPon 12-20-2020 ANES PRE-OP HNO ID: [id number] Author: Adan Viera MD Service: Anesthesiology Author Type: Physician Type: Anesthesia Preprocedure Evaluation Filed: 12/20/2020 11:30 AM Note Text: ANESTHESIOLOGY DAY OF SURGERY NOTE : 1970 Procedure(s) (LRB): REVISION JOINT TOTAL KNEE FEMORAL AND ENTIRE TIBIAL COMPONENT (Left) Surgeon(s): Rex Meredith Jr., MD Estimated body mass index is 35.51 kg/m? as calculated from the following: Height as of 11/30/20: 167.6 cm (5' 6 ). Weight as of 11/30/20: 99.8 kg (220 lb). Most recent hematocrit and potassium results: Hematocrit 40.5 11/30/2020 Potassium 4.8 11/30/2020 Relevant Problems CARDIO (+) Hypertension -RENAL (+) Congenital absence of one kidney PULMONARY (+) Asthma I - PHYSICAL EVALUATION AIRWAY Patient intubated: No. Mallampati: II. TM distance: >3 FB. Neck ROM: full ROM without neurological symptoms. Mouth opening: adequate. Short neck: no. Thick neck: no DENTAL Normal dental observations. Dental findings: teeth intact. II - ANESTHESIA PLAN ASA Score: 3 Anesthetic Plan: spinal and regional Anesthetic plan additional comments: (pre op adductor canal block) + MAC Sedation. NPO Status: adequate Monitoring plan: Standard ASA. Postoperative analgesic plan: parenteral or oral opioids, multimodal analgesia and peripheral nerve block. Anesthetic Risks, Benefits, Alternatives, Personnel Discussed. Consent obtained from: patient.Patient / Surrogate agrees to blood products: yes DNR status not reviewed with patient and/or family prior to surgery. Significant changes in the patient condition since the History and Physical, not otherwise documented in primary service progress note: no. Potential Anesthesia issues that may suggest increased risk of complications or contraindication to planned procedure: none. Vitals Value Taken Time BP 142/100 12/20/20954 Pulse 60 12/20/20954 Resp 16 12/20/20954 Temp 36.7 ?C (98.1 ?F) 12/20/20954 SpO2 97 % 12/20/20954 Facility-Administere d Medications as of 12/20/2020 Medication Dose Route Frequency - [COMPLETED] acetaminophen 1,000 mg tab(s) (TYLENOL) 1,000 mg ORAL Pre-Op Once - [COMPLETED] celecoxib 200 mg cap(s) (CeleBREX) 200 mg ORAL Pre-Op Once - [COMPLETED] gabapentin 100 mg cap(s) (NEURONTIN) 100 mg ORAL Pre-Op Once - [COMPLETED] oxyCODONE ER 10 mg tab(s) (OxyCONTIN) 10 mg ORAL Pre-Op Once - scopolamine 1 mg over 3 days 1 Patch (TRANSDERM-SCOP) 1 Patch TRANSDERMAL Pre-Op Once - lidocaine 10 mg/mL (1 %) 1-2 mg injection (XYLOCAINE) 0.1-0.2 mL INTRADERMAL PRN - lactated ringers iv infusion 5-30 mL/hr INTRAVENOUS CONTINUOUS - ceFAZolin iv piggyback 2 g in D5W (iso-osmotic) 100 mL (ANCEF) 2 g INTRAVENOUS Pre-Op Once - tranexamic acid 1,000 mg in NaCl 0.9% 100 mL (CYKLOKAPRON) 1,000 mg INTRAVENOUS Pre-Op Once - tranexamic acid 1,000 mg in NaCl 0.9% 100 mL (CYKLOKAPRON) 1,000 mg INTRAVENOUS ONCE - [START ON 12/23/2020] scopolamine - REMOVE PATCH OTHER q 72 HR And - scopolamine - VERIFY patch OTHER q 8 H Outpatient Medications as of 12/20/2020 Medication Sig - sertraline (ZOLOFT) 50 mg tablet TAKE 1 AND 1 2 (ONE AND ONE HALF) TABLETS BY MOUTH ONCE DAILY - lisinopril (ZESTRIL, PRINIVIL) 10 mg tablet Take 10 mg by mouth once daily. - hydroCHLOROthiazide (HYDRODIURIL, ESIDRIX) 12.5 mg tablet Take 12.5 mg by mouth. - lisinopril-hydrochlo rothiazide (PRINZIDE, ZESTORETIC) 20-25 mg per tablet Take 1 tablet by mouth once daily. (Patient not taking: Reported on 11/30/2020 ) - mometasone-formotero l (DULERA) 100-5 mcg/actuation inhaler Inhale 2 Puffs as instructed twice daily. I have interviewed and examined the patient. I have reviewed the medical record and/or the pre-anesthesia evaluation, pertinent labs, and test results. This contains updated information obtained within 48 hours of Surgery/Procedure. SIGNATURE: Adan Viera MD PATIENT NAME: Jessenia Wing DATE: December 20, 2020 TIME: 11:29 AM CSN: [id number] [facility] Anaerobe Cultureon Anaerobe Culture Culture Result - Negative for anaerobes. No Cutibacterium (Propionibacterium) acnes isolated. [facility] Comment on above: Performed By: #### A NACUL ####[facility] [place], [place] [phone] BRIEF OP NOTon 12-20-2020 BRIEF OP NOT HNO ID: [id number] Author: Rex Meredith Jr., MD Service: Orthopaedic Surgery Author Type: Physician Type: Brief Op Note Filed: 12/20/2020 3:24 PM Note Text: OPERATIVE/PROCEDURE REPORT LOG ID: [id number] SURGERY/PROCEDURE DATE: 12/20/2020 INCISION/PROCEDURE START TIME: 1:19 PM INCISION CLOSE/PROCEDURE END TIME: 1523 SURGEON(S)/PROCEDURA LIST(S) AND WRECKER DRIVER(S): Surgeon(s) and Role: * Rex Meredith Jr., MD - Primary Physician Tilesetter: Wilver Newberry PA-C; Deisy Gonzalez PA-C SURGERY/PROCEDURE(S) : Left knee revision ANESTHESIA: Spinal SURGERY/PROCEDURE DETAILS: Left knee revision PRE-OP/PRE-PROCEDURE DIAGNOSIS: Aseptic loosening left knee revision POST-OP/POST-PROCEDU RE DIAGNOSIS: Same as Preop ESTIMATED BLOOD LOSS: 100 mls SPECIMENS: open cultures IMPLANTABLE DEVICES: Ginny TS DRAINS: None COMPLICATIONS: None PARTICIPATION IN SURGERY/PROCEDURE: No qualified resident/fellow was available. I/primary surgeon/proceduralis t performed the entire procedure. SIGNATURE: Rex Meredith Jr, MD PATIENT NAME: Jessenia Wing DATE: December 20, 2020 TIME: 3:23 PM Normal [facility] Basic Metabolic Panlon 12-20 Anion gap [Moles/Vol] 10 mmol/L Normal 9-18 [facility] Comment on above: Performed By: #### C BC, BMP ####[place] [phone] Calcium [Mass/Vol] 8.5 mg/dL Normal 8.5-10.2 [facility] Comment on above: Performed By: #### C BC, BMP ####[place] [id number] Chloride [Moles/Vol] 111 mmol/L High 97-105 [facility] Comment on above: Performed By: #### C BC, BMP ####[place] [id number] CO2 [Moles/Vol] 23 mmol/L Normal 22-30 [facility] Comment on above: Performed By: #### C BC, BMP ####[place] [phone] Creatinine [Mass/Vol] 0.73 mg/dL Normal 0.58-0.96 [facility] Comment on above: Performed By: #### C BC, BMP ####[place] [id number] eGFR- Amer. >60 Normal >60 [facility] Comment on above: Performed By: #### C ANMOL, BMP ####[place] [id number] eGFR-All Other Races >60 Normal >60 [facility] Comment on above: Result Comment: eGFR (Estimated GFR) Units of measure: mL/min/1.73 meters squared eGFR is derived from the reexpressed MDRD Study equation using the following parameters: serum creatinine, age, gender and race. The creatinine assay has been calibrated to be traceable to IDMS. An eGFR <60 mL/min/1.73m2 for >3 months is consistent with chronic kidney disease. Refer to KDOQI guidelines for clinical interpretation. In patients with unstable renal function, e.g. those with acute kidney injury, the eGFR may not accurately reflect actual GFR. Performed By: #### C ANMOL, BMP ####[place] [phone] Glucose [Mass/Vol] 140 mg/dL High 74-99 [facility] Comment on above: Performed By: #### C ANMOL, BMP ####[address] Potassium [Moles/Vol] 5.0 mmol/L Normal 3.7-5.1 [facility] Comment on above: Performed By: #### C ANMOL, BMP ####[place] [phone] Sodium [Moles/Vol] 144 mmol/L Normal 136-144 [facility] Comment on above: Performed By: #### C BC, BMP ####[address] Urea nitrogen [Mass/Vol] 9 mg/dL Normal 7-21 [facility] Comment on above: Performed By: #### C BC, BMP ####[place] [phone] CBCon 12-20-2020 Absolute nRBC <0.01 Normal <0.01 [facility] Comment on above: Performed By: #### C ANMOL, BMP ####[address] [phone] Erythrocyte distribution width (RBC) [Ratio] 15.8 % High 11.5-15.0 [facility] Comment on above: Performed By: #### C ANMOL, BMP ####[place] [phone] Hematocrit (Bld) [Volume fraction] 33.1 % Low 36.0-46.0 [facility] Comment on above: Performed By: #### C ANMOL, BMP ####[place] [phone] Hemoglobin (Bld) [Mass/Vol] 10.4 g/dL Low 11.5-15.5 [facility] Comment on above: Performed By: #### C ANMOL, BMP ####[place] [phone] MCH 27.2 pG Normal 26.0-34.0 [facility] Comment on above: Performed By: #### C ANMOL, BMP ####[place] [phone] MCHC (RBC) [Mass/Vol] 31.4 g/dL Normal 30.5-36.0 [facility] Comment on above: Performed By: #### C ANMOL, BMP ####[place] [phone] MCV (RBC) [Entitic vol] 86.4 fL Normal 80.0-100.0 [facility] Comment on above: Performed By: #### C ANMOL, BMP ####[place] [phone] Platelet mean volume (Bld) [Entitic vol] 11.0 fL Normal 9.0-12.7 [facility] Comment on above: Performed By: #### C ANMOL, BMP ####[place] [phone] Platelets (Bld) [#/Vol] 120 10*3/uL Low 150-400 [facility] Comment on above: Performed By: #### C ANMOL, BMP ####[facility] [phone] RBC (Bld) [#/Vol] 3.83 10*6/uL Low 3.90-5.20 [facility] Comment on above: Performed By: #### C BC, BMP ####[facility] [phone] WBC (Bld) [#/Vol] 6.04 10*3/uL Normal 3.70-11.00 [facility] Comment on above: Performed By: #### C BC, BMP ####[facility] [phone] CONSULTon 12-20-2020 CONSULT HNO ID: [id number] Author: Toan Can MD Service: General Internal Medicine Author Type: Physician Type: Consults Filed: 12/20/2020 5:54 PM Note Text: CONSULT NOTE - INTERNAL MEDICINE PATIENT NAME: Jessenia Wing SERVICE DATE: 12/20/2020 SERVICE TIME: 5:52 PM ADMITTING PHYSICIAN: Rex Meredith Jr., MD CC: Post operative medical m/m, patient is s/p left TKR HPI: Her pain is controlled well; Patient denies any vomiting, is complaining of postoperative nausea. She denies any recent fever or chills, skin infections or any upper respiratory infections. She does not smoke. She drinks alcohol occasionally. PAST MEDICAL HISTORY Diagnosis Date - Asthma - Congenital absence of one kidney - HTN (hypertension) - Muscular abdominal pain in right flank 04/30/2012 - OA (osteoarthritis) of knee - Obesity - Pneumonia 2010 - S/P repair of recurrent ventral hernia 01/27/2012 PAST SURGICAL HISTORY Procedure Laterality Date - PAST SURGICAL HISTORY OF cholestectomy - PAST SURGICAL HISTORY OF umb hernia repair 06/2004, 01/2011 - PAST SURGICAL HISTORY OF c-sec - PAST SURGICAL HISTORY OF left knee arthroscopy - REPAIR INCISIONAL HERNIA,REDUCIBLE 11/2011 Hernia repair, incisional - REVISION OF KNEE JOINT Left 12/20/2020 - TOTAL KNEE REPLACEMENT Left 11/18/2016 Social History Tobacco Use - Smoking status: Never Smoker - Smokeless tobacco: Never Used Substance Use Topics - Alcohol use: Yes Alcohol/week: 1.0 - 2.0 standard drinks Types: 1 - 2 Glasses of Wine (5oz) per week Comment: social-weekends - Drug use: No MEDICATIONS: Current Facility-Administere d Medications Medication Dose Route Frequency Provider Last Rate Last Admin - scopolamine 1 mg over 3 days 1 Patch (TRANSDERM-SCOP) 1 Patch TRANSDERMAL Pre-Op Once Deisy Gonzalez PA-C 1 Patch at 12/20/20 1039 - [START ON 12/23/2020] scopolamine - REMOVE PATCH OTHER q 72 HR Rex Meredith Jr., MD And - scopolamine - VERIFY patch OTHER q 8 H Rex Meredith Jr., MD - lisinopril 10 mg tab(s) (ZESTRIL, PRINIVIL) 10 mg ORAL DAILY Rex Meredith Jr., MD - sertraline 75 mg tab(s) (ZOLOFT) 75 mg ORAL DAILY Rex Meredith Jr., MD - hydroCHLOROthiazide 12.5 mg tab(s) (HYDRODIURIL, ESIDRIX) 12.5 mg ORAL DAILY Rex Meredith Jr., MD - lactated ringers iv infusion 100 mL/hr INTRAVENOUS CONTINUOUS Rex Meredith Jr., MD 100 mL/hr at 12/20/20 1742 100 mL/hr at 12/20/20 1742 - sodium chloride 0.9 % (flush) 2-10 mL (BD POSIFLUSH) 2-10 mL INTRAVENOUS q 12 H Rex Meredith Jr., MD - ondansetron 4 mg tab(s) (ZOFRAN) 4 mg ORAL q 6 H PRN Rex Meredith Jr., MD Or - ondansetron (PF) 4 mg injection (ZOFRAN) 4 mg INTRAVENOUS q 6 H PRN Rex Meredith Jr., MD - [START ON 12/21/2020] magnesium hydroxide 400 mg/5 mL 30 mL (MOM) 30 mL ORAL DAILY PRN Rex Meredith Jr., MD - [START ON 12/22/2020] bisacodyl EC 10 mg tab(s) (DULCOLAX) 10 mg ORAL DAILY Rex Meredith Jr., MD - aluminum-magnesium hydroxide-simethicon e 200-200-20 mg/5 mL 30 mL (MAALOX,MYLANTA,MAG- AL PLUS) 30 mL ORAL q 2 H PRN Rex Meredith Jr., MD - [START ON 12/21/2020] ferrous sulfate 325 mg tab(s) 325 mg ORAL BID w MEALS Rex Meredith Jr., MD - [START ON 12/21/2020] ascorbic acid (vitamin C) 500 mg tab(s) (VITAMIN C) 500 mg ORAL BID w MEALS Rex Meredith Jr., MD - [START ON 12/21/2020] docusate sodium 100 mg cap(s) (COLACE) 100 mg ORAL BID Rex Meredith Jr., MD - senna 17.2 mg tab(s) (SENOKOT) 17.2 mg ORAL AT BEDTIME Rex Meredith Jr., MD - [START ON 12/21/2020] aspirin, enteric coated 81 mg tab(s) 81 mg ORAL BID Rex Meredith Jr., MD - ceFAZolin iv piggyback 1 g in D5W (iso-osmotic) 50 mL (ANCEF) 1 g INTRAVENOUS q 8 HR Rex Meredith Jr., MD - acetaminophen 1,000 mg tab(s) (TYLENOL) 1,000 mg ORAL q 8 H Rex Meredith Jr., MD - keTORolac 15 mg injection (TORADOL) 15 mg INTRAVENOUS q 6 H Rex Meredith Jr., MD - oxyCODONE IR 5-10 mg tab(s) (ROXICODONE) 5-10 mg ORAL q 3 H PRN Rex Meredith Jr., MD - fluticasone-vilanter ol 100-25 mcg/dose 1 Inhalation (BREO ELLIPTA) 1 Inhalation INHALATION DAILY Rex Meredith Jr., MD ALLERGIES No Known Allergies Family History Problem Relation Age of Onset - Anesthesia Problems No Family History ROS: Patient denies any recent ENT or eye complaints, CP, palpitation, cough, wheeze, dizziness, dyspnea, abdominal pain, recent urinary or bowel changes, rash or increased ankle swelling. Rest of the review of system is negative except as noted. OBJECTIVE PHYSICAL EXAM: Patient Vitals for the past 24 hrs: BP Temp Temp src Pulse Resp SpO2 Height Weight 12/20/20 1737 ? 167.6 cm (5' 5.98 ) 99.8 kg (220 lb 0.3 oz) 12/20/20 1717 123/79 36.6 ?C (97.9 ?F) Oral 62 17 98 % ? ? 12/20/20 1659 108/70 36.1 ?C (97 ?F) Temporal (!) 58 12 98 % ? ? 12/20/20 1651 101/68 ? 97 % ? ? 12/20/20 1645 93/65 ? ? 62 13 94 % ? ? 12/20/20 1630 102/ (more content not included)... [facility] NURSING PROGon 12-20-2020 NURSING PROG HNO ID: [id number] Author: Cherie Rose RN Service: Nursing Author Type: Registered Nurse Type: Nursing Progress Note Filed: 12/20/2020 5:21 PM Note Text: Nursing Progress Note Patient Name: Jessenia Srivastavar Patient Location: [address]/[place] [address] - Transfer Note: Patient transferred into room/unit 502-2 in stable condition. Actions taken: Patient and family oriented to 5D unit policies and procedures. Educated on falls risks, falls precautions, and use of call almeida prior to getting OOB. Patient resting in bed. Call light within reach. All needs met at this time. This note was completed by: Cherie Rose [facility] OPERATIVE NOon 12-20-2020 OPERATIVE NO HNO ID: [id number] Author: Rex Meredith Jr., MD Service: Orthopaedic Surgery Author Type: Physician Type: Operative Report Filed: 12/21/2020 8:04 AM Note Text: OPERATIVE/PROCEDURE REPORT LOG ID: [id number] SURGERY/PROCEDURE DATE: 12/20/2020 INCISION/PROCEDURE START TIME: 1:19 PM INCISION CLOSE/PROCEDURE END TIME: 3:54 PM SURGEON(S)/PROCEDURA LIST(S) AND WRECKER DRIVER(S): Surgeon(s) and Role: * Rex Meredith Jr., MD - Primary Physician Tilesetter: Wilver Newberry PA-C; Deisy Gonzalez PA-C - Aline was presser first; his assistance consisted of assistance with positioning, retraction and closing the wound SURGERY/PROCEDURE(S) : Left total knee revision ANESTHESIA: Spinal SURGERY/PROCEDURE DETAILS: Left total knee revision PRE-OP/PRE-PROCEDURE DIAGNOSIS: 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 The femur consisted of a size 6 femur with a 15 x 100 cemented stem; 5 mm posterior medial and 5 mm posterior lateral and 15 mm distal medial and 15 mm distal lateral augments. The tibia was a size 5 with a 10 mm medial augment and a 12 x 75 cemented stem. The polyethylene was a 16 TS polyethylene liner. Indwelling patella was left in place. DRAINS: None COMPLICATIONS: None PARTICIPATION IN SURGERY/PROCEDURE: No qualified resident/fellow was available. I/primary surgeon/proceduralis t performed the entire procedure. Procedure: Patient was brought to the operating room. After adequate induction of spinal anesthesia by anesthesiology the patient was placed supine on the operating table. The left lower extremity was prepped and draped in sterile fashion with a ChloraPrep scrub. In so doing, it was noted that the left knee hyperextended 35 degrees. This is significant. The limb was exsanguinated and the tourniquet was insufflated. The old anterior midline approach to the knee was undertaken. Sharp dissection was carried out through skin and subcutaneous tissue down to level the extensor mechanism. Median parapatellar arthrotomy was then performed. Appropriate soft tissue releases were performed. The patella was everted and assessed for stability. It was well fixed. It was left in place. An aggressive synovectomy was then performed due to massive synovitis. The knee was flexed up and it was obvious that the tibial component was loose; it was moving. Utilizing an osteotome and a mallet, the polyethylene was removed from the tibial tray. Then utilizing an osteotome and a mallet, the femoral component was removed from the distal femur. Minimal bone loss was incurred. The patella was then subluxed anteriorly and the tibial component was removed with a Omid. It was grossly loose. The cement mantle was removed. Reaming was then performed in anterograde fashion and the tibia up to a size 15. The the step guide was then pinned in the place for the proximal tibial resection. Cut was made to accommodate a 10 mm medial augment. So, the tibia was sized to a size 5. The 10 mm augment was placed medially. The keel was prepared. And then the size 5 tibia with a 10 mm medial augment and a 12 x 75 stem trial was then impacted into the tibia. Reaming was then performed in retrograde fashion in the femur up to a size 17. Femur was actually sized to a size 5 and it was determined that 15 mm distal medial and distal lateral augments would be required. The cutting guide was pinned into place. The distal femoral cut was made. The 15 mm augments were then placed in the form 1 cutting block for the size 5 was then pinned into place. Anterior posterior and chamfer cuts were all air balls. The box cut was then made. The knee was then tried with the size 5 trial and the 15 mm distal medial and distal lateral augments and it was loose in flexion. The femur was then upgraded to a size 6 and 5 mm augments were placed posterior medial and posterior lateral. So, the size 6 femur with 15 mm distal medial and 15 mm distal lateral and 5 mm posterior medial and 5 mm posterior lateral augments was then tried with a 15 x 100 stem. A 16 TS polyethylene liner trial allowed full extension and good flexion. The hyperextension was gone. The flexion and extension gaps were equalized. There was no varus or valgus laxity throughout the entire arc of motion. The decision was made proceed with the size components. All trial components were removed from the knee. The tourniquet was let down. Hemostasis was obtained with the Bovie electrocautery. The components were assembled on the back table. Cement restrictor's were inserted into the appropriate level of both the femur and the tibia. Tourniquet was reinsufflated after the components were assembled. All cut bony surfaces as well as the intramedullary canals were irrigated off with n (more content not included)... Normal [facility] SURGICAL PATHOLOGYon 021 SURGICAL PATHOLOGY Specimen originated from [facility] Specimen #: [id number] Submitting Physician: REX MEREDITH JR, MD FINAL DIAGNOSIS Hardware, left knee, removal - Unremarkable hardware (gross examination only). APH/KVB/lbk 12/21/2020 Gaston Florez M.D. (Electronic Signature) SPECIMEN SUBMITTED A: REMOVED HARDWARE FROM LEFT KNEE CLINICAL DATA FAILURE OF TOTAL KNEE REPLACEMENT, INITIAL ENCOUNTER ([facility]); LEFT TOTAL KNEE REVISION GROSS DESCRIPTION A. Received in formalin labeled removed hardware from left knee are the components of knee hardware. A distal femoral component is present measuring 6.5 x 6.0 x 5.3 cm. A middle tibial base plate is present measuring 6.8 x 4.7 x 3.5 cm. Also received in the same container is a polyethylene articular insert measuring 6.6 x 4.0 x 2.6 cm. There is an inscription on the polyethylene articular insert saying LEFT [id number] . No tissue is present. No sections are submitted. The specimen is for gross examination only. The specimen is reviewed by Dr. Florez. Gross examination performed at [facility] [place], [facility] [place] [place] [address] KVB/lbk 12/21/2020 Date of Report: 12/22/2020 Date of Procedure: 12/20/2020 Date of Receipt: 12/20/2020 Submitted by: REX MEREDITH JR, MD Location: [facility] Diagnostic interpretation performed at [facility], [address] [place] [address], [place] [address]. CLIA Number: [id number] [facility] Wound Culture/Stainon 2020 Wound Culture/Stain Sp. Request/Comment: - Specimen received in anaerobic transport medium. Smear Result - No organisms seen No Polymorphonuclear Leukocytes Culture Result - No growth 2 days [facility] Comment on above: Performed By: #### W CUL ####[facility] [id number] [place], [place] [address]OerxikbamSelect [facility] [place] [id number] [place], [place] [phone] Type and SCR (30D)on 021 ABO/RH(D) Positive Normal [facility] Comment on above: Performed By: #### T SCR30 ####[facility] [phone] Large Joint Arthro/Inj: R kn ee joint [facility] Vital Signs Date Time Vital Sign Value Performing Clinician Faci lity 06-27-2023 10:58-0500 Diastolic blood pressure 96 mm[Hg] DIANA CEJA [facility] 06-27-2023 10:58-0500 Mean blood pressure 107 mm[Hg] DIANA CEJA [facility] 06-27-2023 10:58-0500 Systolic blood pressure 130 mm[Hg] DIANA CEJA [facility] 06-27-2023 10:47-0500 Diastolic blood pressure 92 mm[Hg] DIANA CEJA [facility] 06-27-2023 10:47-0500 Mean blood pressure 104 mm[Hg] DIANA CEJA [facility] 06-27-2023 10:47-0500 Systolic blood pressure 128 mm[Hg] DIANA CEJA [facility] 06-27-2023 10:29-0500 Blood Pressure Location DIANA CEJA [facility] 06-27-2023 10:29-0500 Body temperature 97.88 [degF] DIANA CEJA [facility] 06-27-2023 10:29-0500 Diastolic blood pressure 64 mm[Hg] DIANA MOODYANNIAKACEY [facility] 06-27-2023 10:29-0500 Heart rate 77 /min DIANA SULTANAMAMTAKACEY [facility] 06-27-2023 10:29-0500 Respiratory rate 24 /min DIANA CEJA [facility] 06-27-2023 10:29-0500 SaO2% (BldA) [Mass fraction] 98 % DIANA CEJA [facility] 06-27-2023 10:29-0500 Systolic blood pressure 116 mm[Hg] DIANA MOODYANNIAKACEY [facility] 06-26-2023 20:47-0500 Diastolic blood pressure 104 mm[Hg] Everardo Perera [facility] 06-26-2023 20:47-0500 Heart rate 98 /min Everardo Perera [facility] 06-26-2023 20:47-0500 Mean blood pressure 125 mm[Hg] Everardo Dilma [facility] 06-26-2023 20:47-0500 Respiratory rate 18 /min Everardo Dilma [facility] 06-26-2023 20:47-0500 SaO2% (BldA) [Mass fraction] 97 % Everadro Dilma [facility] 06-26-2023 20:47-0500 Systolic blood pressure 166 mm[Hg] Everardo Dilma [facility] 06-26-2023 20:25-0500 Diastolic blood pressure 119 mm[Hg] Everardo Dilma [facility] 06-26-2023 20:25-0500 Heart rate 92 /min Everardo Dilma [facility] 06-26-2023 20:25-0500 Hourly Rounding Everardo Dilma [facility] 06-26-2023 20:25-0500 Mean blood pressure 139 mm[Hg] Everardo Dilma [facility] 06-26-2023 20:25-0500 Respiratory rate 21 /min Everardo Dilma [facility] 06-26-2023 20:25-0500 SaO2% (BldA) [Mass fraction] 97 % Everardo Dilma [facility] 06-26-2023 20:25-0500 Systolic blood pressure 180 mm[Hg] Everardo Dilma [facility] 06-26-2023 20:17-0500 Diastolic blood pressure 119 mm[Hg] Everardo Dilma [facility] 06-26-2023 20:17-0500 Systolic blood pressure 180 mm[Hg] Everardo Dilma [facility] 06-26-2023 19:25-0500 Heart rate 86 /min Everardo Dilma [facility] 06-26-2023 19:25-0500 Hourly Rounding Everardo Dilma [facility] 06-26-2023 19:25-0500 Mean blood pressure 151 mm[Hg] Everardo Dilma [facility] 06-26-2023 19:25-0500 Promise to Return Everardo Dilma [facility] 06-26-2023 19:25-0500 Respiratory rate 17 /min Everardo Dilma [facility] 06-26-2023 19:25-0500 SaO2% (BldA) [Mass fraction] 98 % Everardo Perera [facility] 06-26-2023 18:37-0500 Body temperature 98.24 [degF] Everardo Perera [facility] 06-26-2023 18:37-0500 Heart rate 99 /min Everardo Perera [facility] 06-26-2023 18:37-0500 Respiratory rate 16 /min Everardo Perera [facility] 03-05-2023 15:25-0400 Diastolic blood pressure 96 mm[Hg] Morena Soham [facility] 03-05-2023 15:25-0400 Mean blood pressure 111 mm[Hg] Morena Soham [facility] 03-05-2023 15:25-0400 Systolic blood pressure 140 mm[Hg] Morena Soham [facility] 03-05-2023 15:09-0400 Diastolic blood pressure 116 mm[Hg] Morena Soham [facility] 03-05-2023 15:09-0400 Mean blood pressure 127 mm[Hg] Morena Soham [facility] 03-05-2023 15:09-0400 Systolic blood pressure 149 mm[Hg] Morena Soham [facility] 03-05-2023 15:06-0400 Blood Pressure Location Morena Soham [facility] 03-05-2023 15:06-0400 Body temperature 97.52 [degF] Morena Rousseau [facility] 03-05-2023 15:06-0400 Diastolic blood pressure 103 mm[Hg] Morena Hinesmetz [facility] 03-05-2023 15:06-0400 Heart rate 73 /min Morena Hinesmetz [facility] 03-05-2023 15:06-0400 Systolic blood pressure 142 mm[Hg] Morena Rousseau [facility] 02-05-2023 13:54-0400 Blood Pressure Location Parker SALAM [facility] 02-05-2023 13:54-0400 Diastolic blood pressure 114 mm[Hg] Parker SALAM [facility] 02-05-2023 13:54-0400 Heart rate 64 /min Parker SALAM [facility] 02-05-2023 13:54-0400 Respiratory rate 21 /min Parker SALAM [facility] 02-05-2023 13:54-0400 SaO2% (BldA) [Mass fraction] 100 % Parker SALAM [facility] 02-05-2023 13:54-0400 Systolic blood pressure 155 mm[Hg] Parker SALAM [facility] 02-05-2023 13:44-0400 Blood Pressure Location Parker SALAM [facility] 02-05-2023 13:44-0400 Diastolic blood pressure 94 mm[Hg] Parker SALAM [facility] 02-05-2023 13:44-0400 Heart rate 62 /min Parker SALAM [facility] 02-05-2023 13:44-0400 Respiratory rate 19 /min Parker SALAM [facility] 02-05-2023 13:44-0400 SaO2% (BldA) [Mass fraction] 99 % Parker SALAM [facility] 02-05-2023 13:44-0400 Systolic blood pressure 149 mm[Hg] Parker SALAM [facility] 02-05-2023 13:39-0400 Blood Pressure Location Parker SALAM [facility] 02-05-2023 13:39-0400 Diastolic blood pressure 94 mm[Hg] Parker SALAM [facility] 02-05-2023 13:39-0400 Heart rate 64 /min Parker SALAM [facility] 02-05-2023 13:39-0400 Respiratory rate 12 /min Parker SALAM [facility] 02-05-2023 13:39-0400 SaO2% (BldA) [Mass fraction] 99 % Parker SALAM [facility] 02-05-2023 13:39-0400 Systolic blood pressure 138 mm[Hg] Parker SALAM [facility] 02-05-2023 13:29-0400 Body temperature 97.16 [degF] Parker SALAM [facility] 02-05-2023 13:25-0400 Respiratory rate 18 /min Parker SALAM [facility] 02-05-2023 13:20-0400 Respiratory rate 18 /min Parker SALAM [facility] 02-05-2023 13:15-0400 Respiratory rate 16 /min Parker SALAM [facility] 02-05-2023 12:18-0400 Body temperature 97.88 [degF] Parker SALAM [facility] 12-25-2022 10:32-0400 Body height 167.6 cm Marko Torreuh PA-C Work Phone: [facility] [place] 12-25-2022 10:32-0400 Body weight 106.05 kg Marko Bandsuh PA-C Work Phone: [facility] [place] 12-25-2022 10:32-0400 Diastolic blood pressure 78 mm[Hg] Marko Bandsuh PA-C Work Phone: [facility] [place] 12-25-2022 10:32-0400 Heart rate 60 /min Marko Bandsuh PA-C Work Phone: [facility] [place] 12-25-2022 10:32-0400 Systolic blood pressure 112 mm[Hg] Marko Bandsuh PA-C Work Phone: [facility] 12-18-2022 09:27-0400 Blood Pressure Location Parker SALAM [facility] 12-18-2022 09:27-0400 Diastolic blood pressure 85 mm[Hg] Parker SALAM [facility] 12-18-2022 09:27-0400 Heart rate 66 /min Parker SALAM [facility] 12-18-2022 09:27-0400 Respiratory rate 16 /min Parker SALAM [facility] 12-18-2022 09:27-0400 SaO2% (BldA) [Mass fraction] 96 % Parker SALAM [facility] 12-18-2022 09:27-0400 Systolic blood pressure 121 mm[Hg] Parker SALAM [facility] 10-25-2022 14:31-0400 Blood Pressure Location ANA SIDELL [facility] 10-25-2022 14:31-0400 Body temperature 98.06 [degF] ANA SIDELL [facility] 10-25-2022 14:31-0400 Diastolic blood pressure 82 mm[Hg] ANA SIDELL [facility] 10-25-2022 14:31-0400 Heart rate 81 /min ANA SIDELL [facility] 10-25-2022 14:31-0400 SaO2% (BldA) [Mass fraction] 98 % ANA SIDELL [facility] 10-25-2022 14:31-0400 Systolic blood pressure 144 mm[Hg] ANA SIDELL [facility] 08-08-2022 15:51-0500 Diastolic blood pressure 97 mm[Hg] Rita Stanislaw [facility] 08-08-2022 15:51-0500 Mean blood pressure 111 mm[Hg] Mohamed Stanislaw [facility] 08-08-2022 15:51-0500 Systolic blood pressure 139 mm[Hg] Mohamed Stanislaw [facility] 08-08-2022 15:39-0500 Blood Pressure Location Mohamed Stanislaw [facility] 08-08-2022 15:39-0500 Diastolic blood pressure 94 mm[Hg] Mohamed Stanislaw [facility] 08-08-2022 15:39-0500 Heart rate 72 /min Rita Dover [facility] 08-08-2022 15:39-0500 SaO2% (BldA) [Mass fraction] 98 % Rita Dover [facility] 08-08-2022 15:39-0500 Systolic blood pressure 137 mm[Hg] Rita Dover [facility] 05-16-2022 14:27-0500 Blood Pressure Location Rita Dover [facility] 05-16-2022 14:27-0500 Diastolic blood pressure 86 mm[Hg] Rita Dover [facility] 05-16-2022 14:27-0500 Heart rate 71 /min Rita Dover [facility] 05-16-2022 14:27-0500 SaO2% (BldA) [Mass fraction] 98 % Rita Dover [facility] 05-16-2022 14:27-0500 Systolic blood pressure 120 mm[Hg] Rita Dover [facility] 11-06-2021 13:52-0400 Body temperature 98.42 [degF] [facility] 11-06-2021 13:52-0400 Diastolic blood pressure 90 mm[Hg] [place] [facility] 11-06-2021 13:52-0400 Heart rate 59 /min [facility] 11-06-2021 13:52-0400 SaO2% (BldA) [Mass fraction] 96 % [facility] 11-06-2021 13:52-0400 Systolic blood pressure 120 mm[Hg] Levon Amayabriannajose [facility] Encounters Encounter Date Encounter Type Care Provider Facility Start: 07-18-2023 End: 07-18-2023 Patient encounter procedure DIANA CEJA [facility] Start: 06-27-2023 End: 06-28-2023 ambulatory SPEECH LANGUAGE PATHOLOGIST PRN-C DIANA CEJA Facility:[facility] Start: 06-27-2023 End: 06-27-2023 Patient encounter procedure DIANA CEJA [facility] [place] Start: 06-26-2023 End: 06-26-2023 Emergency department patient visit Everardo Perera Facility:[facility] Start: 06-26-2023 End: 06-26-2023 Emergency department patient visit Everardo Perera [facility] Start: 06-26-2023 End: 06-27-2023 ambulatory SELF REFERRAL Facility:[facility] Start: 06-26-2023 End: 06-26-2023 Patient encounter procedure Everardo Davis [facility] Start: 06-05-2023 End: 06-06-2023 ambulatory Morena Rousseau [facility] Start: 06-05-2023 End: 06-05-2023 Patient encounter procedure Morena A Soham [facility] Start: 03-05-2023 End: 03-06-2023 ambulatory Morena A Soham [facility] Start: 03-05-2023 End: 03-05-2023 Patient encounter procedure Morena A Soham [facility] Start: 02-05-2023 End: 02-06-2023 ambulatory Parker [facility] Facility:[facility] Start: 02-05-2023 End: 02-05-2023 Patient encounter procedure Parkervictor manuel MARTIN [facility] Start: 12-25-2022 End: 12-25-2022 ambulatory MARKO TORRE Facility:[facility] Start: 12-25-2022 End: 12-25-2022 Patient encounter procedure Marko Torre PA-C Work Phone: Orthopedics Comment on above: S/P revision of tota l knee, left (Primary Dx); Primary osteoarthritis of right knee Start: 12-18-2022 End: 12-19-2022 ambulatory Parker [facility] Facility:[facility] Start: 12-18-2022 End: 12-18-2022 [facility] Start: 12-16-2022 End: 12-17-2022 ambulatory Sri PUGA Facility:[facility] Start: 12-16-2022 End: 12-17-2022 ambulatory Sri PUGA Facility:[facility] Start: 11-22-2022 End: 11-23-2022 ambulatory ANA CHÁVEZ Facility:[facility] Start: 11-03-2022 End: 11-04-2022 ambulatory Kimmy Scott Facility:[facility] Start: 10-28-2022 ambulatory Keith CHUNG Facility: [facility] Start: 10-25-2022 End: 10-26-2022 ambulatory ANA W SAIRA Facility:[facility] Start: 10-25-2022 End: 10-25-2022 Patient encounter procedure ANA CHÁVEZ [facility] [place] Start: 09-02-2022 End: 09-02-2022 ambulatory Rita Dover Facility:[facility] Start: 09-02-2022 End: 09-02-2022 Admission to same day surgery center Rita Dover [facility] Start: 08-08-2022 End: 08-09-2022 ambulatory Apolloshamir Dover Facility:[facility] Start: 08-08-2022 End: 08-08-2022 Patient encounter procedure Rita Dover [facility] Start: 05-29-2022 End: 05-29-2022 Patient encounter procedure Jerel Banks [facility] Start: 05-20-2022 End: 05-20-2022 Patient encounter procedure Jerel Banks [facility] Start: 05-16-2022 End: 05-16-2022 Patient encounter procedure Rita Dover [facility] Start: 02-22-2022 End: 02-22-2022 Orders Only Augustus Pereira MD Work Phone: Orthopaedics Comment on above: S/P revision of tota l knee, left (Primary Dx) Start: 11-14-2021 End: 11-14-2021 Patient encounter procedure Levon Webber [facility] Start: 11-06-2021 End: 11-06-2021 Patient encounter procedure Levon Webber [facility] Start: 11-06-2021 End: 11-06-2021 [facility] Procedures Date Procedure Procedure Detail Performing Clinician Start: 02-05-2023 Colonoscopy Keith CHUNG Start: 02-05-2023 Esophagogastroduodenoscopy and closure of duodenal fistula Keith CHUNG Start: 12-25-2022 Arthrocentesis aspir&/inj major jt/bursa w/o us Marko Cordova PA-C Work Phone: Start: 09-02-2022 Injection of sclerosing agent Rita adkins Start: 12-20-2020 Revision - value (qualifier value) Js Webber Comment on above: left knee arthroplasty Start: 11-30-2020 Antibody screen Comment on above: Performed By: #### [id number] ####Mele Maldonado [id number] [phone] Start: 10-05-2020 Injection of sclerosing agent Levon swanson Start: 11-18-2016 left TKR Levon Webber Start: 08-18-2015 knee arthroscope with partial medial meniscectomy and excision of loose body 2 Levon Webber Comment on above: left Start: 01-27-2012 H/O: surgery S/P repair of recurrent ventral hernia Augustus Pereira MD Work Phone: section Levon huang Cholecystectomy Levon garcia History of operative procedure on knee History of left knee replacement( Confirmed ) Levon Webber incisional hernia repair 3 R omaira Akbar Comment on above: x2 with mesh Plan of Treatment Date Care Activity Detail Author Start: 12-26-2023 BP CONTROLLED (<130/80) BP CONTROLLE D (<130/80) [facility] Start: 12-22-2023 DIABETES SCREEN DIABETES SCREEN [facility] Start: 07-07-2022 DEPRESSION ASSESSMENT DEPRESSION ASS ESSMENT [facility] Start: 03-07-2022 Influenza vaccination INFLUENZA (#1) [facility] Start: 12-12-2021 COVID-19 VACCINE (4 - Booster for Pfizer series) COVID-19 VACCINE (4 - Booster for Pfizer series) [facility] Start: 12-12-2021 SHINGRIX VACCINE (1 of 2) SHINGRIX V ACCINE (1 of 2) [facility] Start: 09-10-2021 COVID-19 VACCINE (4 - Booster for Pfizer series) COVID-19 VACCINE (4 - Booster for Pfizer series) [facility] Start: 12-12-2016 COLOGUARD (FIT-DNA) COLOGUARD (FIT-D NA) [facility] Start: 12-12-2016 Colonoscopy COLONOSCOPY [facility] Start: 12-12-2016 COLORECTAL CANCER SCREENING COLORECTAL CANCER SCREENING [facility] Start: 12-12-[address] COLONOGRAPHY [facility] Start: 12-12-2016 FECAL OCCULT BLOOD FECAL OCCULT BLOO D [facility] Start: 12-12-2016 LIPID SCREEN LIPID SCREEN [facility] Start: 12-12-2016 SIGMOIDOSCOPY SIGMOIDOSCOPY [facility] Start: 2011 Mammography MAMMOGRAM [facility] Start: 12-12-2001 HPV TESTING HPV TESTING [facility] Start: 12-12-1992 PAP TESTING PAP TESTING [facility] Start: 12-12-1990 Urine microalbumin profile DTAP,TDAP ,TD (1 - Tdap) [facility] Start: 12-12-1989 ANNUAL PCP TEAM NURSE'S COMPANION BARBARA DISEASE VISIT ANNUAL PCP TEAM CHRONIC DISEASE VISIT [facility] Start: 12-12-1989 BP CONTROLLED (<130/80) BP CONTROLLE D (<130/80) [facility] Start: 12-12-1989 HEPATITIS C SCREENING HEPATITIS C SC REENING [facility] Start: 12-12-1989 HIV SCREENING HIV SCREENING [facility] Start: 12-12-1989 SPIROMETRY SPIROMETRY [facility] Start: 1983 Adult depression scr eening assessment DEPRESSION SCREENING [facility] Start: 12-12-1977 PNEUMOCOCCAL (1 - PCV) PNEUMOCOCCAL (1 - PCV) [facility] Start: 1971 HEPATITIS B (1 of 3 - 3-dose series) HEPATITIS B (1 of 3 - 3-dose series) [facility] Immunizations Immunization Date Immunization Notes Care Provider Fa cility 03-11-2023 influenza virus vaccine, unspecified formulation Morena Rousseau [facility] 03-12-2022 influenza virus vaccine, unspecified formulation Keith CHUNG [facility] 07-16-2021 SARS-CoV-2 mRNA (tonyphaqact-idfa-hxkcm se) vaccine Keith CHUNG [facility] 04-03-2021 influenza virus vaccine, unspecified formulation [facility] 09-08-2020 SARS-CoV-2 (COVID-19 ) mRNA BNT-162b2 vax [facility] 08-18-2020 SARS-CoV-2 (COVID-19 ) mRNA BNT-162b2 vax [facility] 03-07-2019 influenza virus vaccine, unspecified formulation [facility] Payers Date Payer Category Payer Unknown [id number] 2011 Unknown [id number] 2011 Unknown [id number] 1971 Unknown [id number] 2.16.8 [id number]. 1971 Unknown [id number] 2.16.8 [id number]. 1971 Unknown [id number] 2.16.8 [id number] 1971 Unknown [id number] 2.16.8 [id number]. 1971 Unknown [id number] 2.16.8 40.1.657238.3.579.2. 1971 Unknown [id number] 2.16.8 40.1.762308.3.579.2. 1971 Unknown [id number] 2.16.8 40.1.788652.3.579.2. 1971 Unknown [id number] 2.16.8 40.1.760389.3.579.2. 1971 Unknown [id number] 2.16.8 [id number] 1971 Unknown [id number] 2.16.8 [id number] 1971 Unknown [id number] 2.16.8 [id number] 1971 Unknown [id number] 2.16.8 [id number] 1971 Unknown [id number] 2.16.8 [id number] 1971 Unknown [id number] 2.16.8 [id number] Social History Date Type Detail Facility Start: 11-06-2021 End: 06-27-2023 Tobacco smoking status Never smoked tobacco (finding) [facility] Comment on above: Denies Tobacco smoking status Never [facility] Comment on above: Denies Sex Assigned At Female [facility] Start: 11-19-2011 Tobacco use and exposure Smokeless tobacco non-user [facility] Start: 12-20-2020 End: 12-25-2022 Alcohol intake Current drinker of alcohol (finding) [facility] Start: 11-30-2020 History SDOH Alcohol Comment social-weekends [facility] Start: 1970 Sex Assigned At Not on file C [facility] Start: 02-12-2022 End: 02-22-2022 Exposure to SARS-CoV-2 (event) Not sure [facility] Medical Equipment Procedure Code Equipment Code Equipment Origin al Text Equipment Identifier Dates Fidencio Bn Smplx Hv Gentamicin Fd - [id number] Start: 11-18-2016 Cement Simplex P Tobramycin Bone Full Dose Radiopaque Preblend Sterile - [id number] Start: 12-20-2020 Surface 6-9 Cd Vivacit-E 11mm Articular Knee - [id number] Start: 11-18-2016 Extension Triath luisana 25mm Stem Total Stabilize Knee Femur - [id number] Start: 12-20-2020 Baseplate Person a 5d D Tivanium Tibial Cemented Stem Knee Left - [id number] Start: 11-18-2016 Restrictor Gregory rsal Cement Disposable Concrete Bucket Hooker - [id number] Start: 12-20-2020 Functional Status Date Assessment Result Facility 06-27-2023 Functional Status N/A [facility] 06-26-2023 Functional Status N/A [facility] 03-05-2023 Functional Status N/A [facility] 02-05-2023 Functional Status N/A [facility] 12-18-2022 Functional Status N/A [facility] 10-25-2022 Functional Status N/A [facility] 08-08-2022 Functional Status No [facility] 05-16-2022 Functional Status No [facility] Clinical Notes 11-18-2016 to 06-27-2023 Note Date & Type Note Facility 06-27-2023 Hospital Discharge instructions Patient Education 06/27/2023 12:02:25 Left Bundle Branch Block Left Bundle Branch Block Left bundle branch block (LBBB) is a problem with the way that electrical impulses pass through the heart (electrical conduction abnormality). The heart depends on an electrical pulse to beat normally. The electrical signal for a heartbeat starts in the upper chambers of the heart (atria) and then travels to the two lower chambers (left and rightventricles). An LBBB is a partial or complete block of the pathway that carries the signal to the left ventricle. If you have LBBB, the left side of your heart does not beat normally. LBBB may be a warning sign of heart disease. What are the causes? This condition may be caused by: Heart disease. Disease of the arteries in the heart (arteriosclerosis). Stiffening or weakening of heart muscle (cardiomyopathy). Infection of heart muscle (myocarditis). High blood pressure. In some cases, the cause may not be known. What increases the risk? The following factors may make you more likely to develop this condition: Being male. Being 50 years of age or older. Having heart disease. Having had a heart attack or heart surgery. What are the signs or symptoms? This condition may not cause any symptoms. If you do have symptoms, they may include: Feeling dizzy or light-headed. Fainting. How is this diagnosed? This condition may be diagnosed based on an electrocardiogram (ECG). It is often diagnosed when an ECG is done as part of a routine physical or to help find the cause of fainting spells. You may also have imaging tests to find out more about your condition. These may include: Chest X-rays. Echocardiogram. How is this treated? If you do not have symptoms or any other type of heart disease, you may not need treatment for this condition. However, you may need to see your health care provider more often because LBBB can be a warning sign of future heart problems. You may get treatment for other heart problems or high blood pressure. If LBBB causes symptoms or other heart problems, you may need to have an electrical device (pacemaker) implanted under the skin of your chest. A pacemaker sends electrical signals to your heart to keep it beating normally. Follow these instructions at home: Lifestyle Follow instructions from your health care provider about eating or drinking restrictions. Follow a heart-healthy diet and maintain a healthy weight. Work with a dietitian to create an eating plan that is best for you. Do not use any products that contain nicotine or tobacco, such as cigarettes, e-cigarettes, and chewing tobacco. If you need help quitting, ask your health care provider. Activity Get regular exercise as told by your health care provider. Return to your normal activities as told by your health care provider. Ask your health care provider what activities are safe for you. General instructions Take vkad-fcs-jkaqqar and prescription medicines only as told by your health care provider. Keep all follow-up visits as told by your health care provider. This is important. Contact a health care provider if: You feel light-headed. You faint. Get help right away if: You have chest pain. You have trouble breathing. These symptoms may represent a serious problem that is an emergency. Do not wait to see if the symptoms will go away. Get medical help right away. Call your local emergency services (911 in the [place] Do not drive yourself to the hospital. Summary For the heart to beat normally, an electrical signal must travel to the lower left chamber of the heart. Left bundle branch block (LBBB) is a partial or complete block of the pathway that carries that signal. This condition may not cause any symptoms. In some cases, a person may feel dizzy or light-headed or may faint. Treatment may not be needed for LBBB if you do not have symptoms or any other type of heart disease. You may need to see your health care provider more often because LBBB can be a warning sign of future heart problems. This information is not intended to replace advice given to you by your health care provider. Make sure you discuss any questions you have with your health care provider. Document Revised: 10/11/2020 Document Reviewed: 12/21/2019 [employer] Patient Education 2022 [employer]. 06/27/2023 12:02:19 Cough, Adult Cough, Adult Coughing is a reflex that clears your throat and your airways (respiratory system). Coughing helps to heal and protect your lungs. It is normal to cough occasionally, but a cough that happens with other symptoms or lasts a long time may be a sign of a condition that needs treatment. An acute cough may only last 2 3 weeks, while a chronic cough may last 8 or more weeks. Coughing is commonly caused by: Infection of the respiratory systemby viruses or bacteria. Breathing in substances that irritate your lungs. Allergies. Asthma. Mucus that runs down the back of your throat (postnasal drip). Smoking. Acid backing up from the stomach into the esophagus (gastroesophageal reflux). Certain medicines. Chronic lung problems. Other medical conditions such as heart failure or a blood clot in the lung (pulmonary embolism). Follow these instructions at home: Medicines Take dwrn-nxt-jqdqhyw and prescription medicines only as told by your health care provider. Talk with your health care provider before you take a cough suppressant medicine. Lifestyle Avoid cigarette smoke. Do not use any products that contain nicotine or tobacco, such as cigarettes, e-cigarettes, and chewing tobacco. If you need help quitting, ask your health care provider. Drink enough fluid to keep your urine pale yellow. Avoid caffeine. Do not drink alcohol if your health care provider tells you not to drink. General instructions Pay close attention to changes in your cough. Tell your health care provider about them. Always cover your mouth when you cough. Avoid things that make you cough, such as perfume, candles, cleaning products, or campfire or tobacco smoke. If the air is dry, use a cool mist vaporizer or humidifier in your bedroom or your home to help loosen secretions. If your cough is worse at night, try to sleep in a semi-upright position. Rest as needed. Keep all follow-up visits as told by your health care provider. This is important. Contact a health care provider if you: Have new symptoms. Cough up pus. Have a cough that does not get better after 2 3 weeks or gets worse. Cannot control your cough with cough suppressant medicines and you are losing sleep. Have pain that gets worse or pain that is not helped with medicine. Have a fever. Have unexplained weight loss. Have night sweats. Get help right away if: You cough up blood. You have difficulty breathing. Your heartbeat is very fast. These symptoms may represent a serious problem that is an emergency. Do not wait to see if the symptoms will go away. Get medical help right away. Call your local emergency services (911 in the [place] Do not drive yourself to the hospital. Summary Coughing is a reflex that clears your throat and your airways. It is normal to cough occasionally, but a cough that happens with other symptoms or lasts a long time may be a sign of a condition that needs treatment. Take xctg-wqt-zfxtkdb and prescription medicines only as told by your health care provider. Always cover your mouth when you cough. Contact a health care provider if you have new symptoms or a cough that does not get better after 2 3 weeks or gets worse. This information is not intended to replace advice given to you by your health care provider. Make sure you discuss any questions you have with your health care provider. Document Revised: 07/12/2019 Document Reviewed: 07/12/2019 [employer] Patient Education 2022 [employer]. [facility] [place] 06-26-2023 Hospital Discharge instructions Patient Education 06/26/2023 20:53:28 Managing Your Hypertension Managing Your Hypertension Hypertension, also called high blood pressure, is when the force of the blood pressing against the hardin of the arteries is too strong. Arteries are blood vessels that carry blood from your heart throughout your body. Hypertension forces the heart to work harder to pump blood and may cause the arteries to become narrow or stiff. Understanding blood pressure readings A blood pressure reading includes a higher number over a lower number: The first, or top, number is called the systolic pressure. It is a measure of the pressure in your arteries as your heart beats. The second, or bottom number, is called the diastolic pressure. It is a measure of the pressure in your arteries as the heart relaxes. For most people, a normal blood pressure is below 120/80. Your personal target blood pressure may vary depending on your medical conditions, your age, and other factors. Blood pressure is classified into four stages. Based on your blood pressure reading, your health care provider may use the following stages to determine what type of treatment you need, if any. Systolic pressure and diastolic pressure are measured in a unit called millimeters of mercury (mmHg). Normal Systolic pressure: below 120. Diastolic pressure: below 80. Elevated Systolic pressure: 120 129. Diastolic pressure: below 80. Hypertension stage 1 Systolic pressure: 130 139. Diastolic pressure: 80 89. Hypertension stage 2 Systolic pressure: 140 or above. Diastolic pressure: 90 or above. How can this condition affect me? Managing your hypertension is very important. Over time, hypertension can damage the arteries and decrease blood flow to parts of the body, including the brain, heart, and kidneys. Having untreated or uncontrolled hypertension can lead to: A heart attack. A stroke. A weakened blood vessel (aneurysm). Heart failure. Kidney damage. Eye damage. Memory and concentration problems. Vascular dementia. What actions can I take to manage this condition? Hypertension can be managed by making lifestyle changes and possibly by taking medicines. Your health care provider will help you make a plan to bring your blood pressure within a normal range. You may be referred for counseling on a healthy diet and physical activity. Nutrition Eat a diet that is high in fiber and potassium, and low in salt (sodium), added sugar, and fat. An example eating plan is called the DASH diet. DASH stands for Dietary Approaches to Stop Hypertension. To eat this way: ?Eat plenty of fresh fruits and vegetables. Try to fill one-half of your plate at each meal with fruits and vegetables. ?Eat whole grains, such as whole-wheat pasta, brown rice, or whole-grain bread. Fill about one-fourth of your plate with whole grains. ?Eat low-fat dairy products. ?Avoid fatty cuts of meat, processed or cured meats, and poultry with skin. Fill about one-fourth of your plate with lean proteins such as fish, chicken without skin, beans, eggs, and tofu. ?Avoid pre-made and processed foods. These tend to be higher in sodium, added sugar, and fat. Reduce your daily sodium intake. Many people with hypertension should eat less than 1,500 mg of sodium a day. Lifestyle Work with your health care provider to maintain a healthy body weight or to lose weight. Ask what an ideal weight is for you. Get at least 30 minutes of exercise that causes your heart to beat faster (aerobic exercise) most days of the week. Activities may include walking, swimming, or biking. Include exercise to strengthen your muscles (resistance exercise), such as weight lifting, as part of your weekly exercise routine. Try to do these types of exercises for 30 minutes at least 3 days a week. Do not use any products that contain nicotine or tobacco. These products include cigarettes, chewing tobacco, and vaping devices, such as e-cigarettes. If you need help quitting, ask your health care provider. Control any long-term (chronic) conditions you have, such as high cholesterol or diabetes. Identify your sources of stress and find ways to manage stress. This may include meditation, deep breathing, or making time for fun activities. Alcohol use Do not drink alcohol if: ?Your health care provider tells you not to drink. ?You are , may be , or are planning to become . If you drink alcohol: ?Limit how much you have to: ?0 1 drink a day for women. ?0 2 drinks a day for men. ?Know how much alcohol is in your drink. In the [place] one drink equals one 12 oz bottle of beer (355 mL), one 5 oz glass of wine (148 mL), or one 1 oz glass of hard liquor (44 mL). Medicines Your health care provider may prescribe medicine if lifestyle changes are not enough to get your blood pressure under control and if: Your systolic blood pressure is 130 or higher. Your diastolic blood pressure is 80 or higher. Take medicines only as told by your health care provider. Follow the directions carefully. Blood pressure medicines must be taken as told by your health care provider. The medicine does not work as well when you skip doses. Skipping doses also puts you at risk for problems. Monitoring Before you monitor your blood pressure: Do not smoke, drink caffeinated beverages, or exercise within 30 minutes before taking a measurement. Use the bathroom and empty your bladder (urinate). Sit quietly for at least 5 minutes before taking measurements. Monitor your blood pressure at home as told by your health care provider. To do this: Sit with your back straight and supported. Place your feet flat on the floor. Do not cross your legs. Support your arm on a flat surface, such as a table. Make sure your upper arm is at heart level. Each time you measure, take two or three readings one minute apart and record the results. You may also need to have your blood pressure checked regularly by your health care provider. General information Talk with your health care provider about your diet, exercise habits, and other lifestyle factors that may be contributing to hypertension. Review all the medicines you take with your health care provider because there may be side effects or interactions. Keep all follow-up visits. Your health care provider can help you create and adjust your plan for managing your high blood pressure. Where to find more information National Heart, Lung, and Blood [place]: www.nhlbi.nih.gov [place] [employer]: www.heart.org Contact a health care provider if: You think you are having a reaction to medicines you have taken. You have repeated (recurrent) headaches. You feel dizzy. You have swelling in your ankles. You have trouble with your vision. Get help right away if: You develop a severe headache or confusion. You have unusual weakness or numbness, or you feel faint. You have severe pain in your chest or abdomen. You vomit repeatedly. You have trouble breathing. These symptoms may be an emergency. Get help right away. Call 911. Do not wait to see if the symptoms will go away. Do not drive yourself to the hospital. Summary Hypertension is when the force of blood pumping through your arteries is too strong. If this condition is not controlled, it may put you at risk for serious complications. Your personal target blood pressure may vary depending on your medical conditions, your age, and other factors. For most people, a normal blood pressure is less than 120/80. Hypertension is managed by lifestyle changes, medicines, or both. Lifestyle changes to help manage hypertension include losing weight, eating a healthy, low-sodium diet, exercising more, stopping smoking, and limiting alcohol. This information is not intended to replace advice given to you by your health care provider. Make sure you discuss any questions you have with your health care provider. Document Revised: 03/07/2022 Document Reviewed: 03/07/2022 [employer] Patient Education 2022 [employer]. 06/26/2023 20:53:28 Migraine Headache Migraine Headache A migraine headache is an intense, throbbing pain on one side or both sides of the head. Migraine headaches may also cause other symptoms, such as nausea, vomiting, and sensitivity to light and noise. A migraine headache can last from 4 hours to 3 days. Talk with your doctor about what things may bring on (trigger) your migraine headaches. What are the causes? The exact cause of this condition is not known. However, a migraine may be caused when nerves in the brain become irritated and release chemicals that cause inflammation of blood vessels. This inflammation causes pain. This condition may be triggered or caused by: Drinking alcohol. Smoking. Taking medicines, such as: ?Medicine used to treat chest pain (nitroglycerin). ? control pills. ?Estrogen. ?Certain blood pressure medicines. Eating or drinking products that contain nitrates, glutamate, aspartame, or tyramine. Aged cheeses, chocolate, or caffeine may also be triggers. Doing physical activity. Other things that may trigger a migraine headache include: Menstruation. . Hunger. Stress. Lack of sleep or too much sleep. Weather changes. Fatigue. What increases the risk? The following factors may make you more likely to experience migraine headaches: Being a certain age. This condition is more common in people who are 25 55 years old. Being female. Having a family history of migraine headaches. Being . Having a mental health condition, such as depression or anxiety. Being obese. What are the signs or symptoms? The main symptom of this condition is pulsating or throbbing pain. This pain may: Happen in any area of the head, such as on one side or both sides. Interfere with daily activities. Get worse with physical activity. Get worse with exposure to bright lights or loud noises. Other symptoms may include: Nausea. Vomiting. Dizziness. General sensitivity to bright lights, loud noises, or smells. Before you get a migraine headache, you may get warning signs (an aura). An aura may include: Seeing flashing lights or having blind spots. Seeing bright spots, halos, or zigzag lines. Having tunnel vision or blurred vision. Having numbness or a tingling feeling. Having trouble talking. Having muscle weakness. Some people have symptoms after a migraine headache (postdromal phase), such as: Feeling tired. Difficulty concentrating. How is this diagnosed? A migraine headache can be diagnosed based on: Your symptoms. A physical exam. Tests, such as: ?CT scan or an MRI of the head. These imaging tests can help rule out other causes of headaches. ?Taking fluid from the spine (lumbar puncture) and analyzing it (cerebrospinal fluid analysis, or CSF analysis). How is this treated? This condition may be treated with medicines that: Relieve pain. Relieve nausea. Prevent migraine headaches. Treatment for this condition may also include: Acupuncture. Lifestyle changes like avoiding foods that trigger migraine headaches. Biofeedback. Cognitive behavioral therapy. Follow these instructions at home: Medicines Take idst-adl-npgywli and prescription medicines only as told by your health care provider. Ask your health care provider if the medicine prescribed to you: ?Requires you to avoid driving or using heavy machinery. ?Can cause constipation. You may need to take these actions to prevent or treat constipation: ?Drink enough fluid to keep your urine pale yellow. ?Take nbbp-geg-lbtbejm or prescription medicines. ?Eat foods that are high in fiber, such as beans, whole grains, and fresh fruits and vegetables. ?Limit foods that are high in fat and processed sugars, such as fried or sweet foods. Lifestyle Do not drink alcohol. Do not use any products that contain nicotine or tobacco, such as cigarettes, e-cigarettes, and chewing tobacco. If you need help quitting, ask your health care provider. Get at least 8 hours of sleep every night. Find ways to manage stress, such as meditation, deep breathing, or yoga. General instructions Keep a journal to find out what may trigger your migraine headaches. For example, write down: ?What you eat and drink. ?How much sleep you get. ?Any change to your diet or medicines. If you have a migraine headache: ?Avoid things that make your symptoms worse, such as bright lights. ?It may help to lie down in a dark, quiet room. ?Do not drive or use heavy machinery. ?Ask your health care provider what activities are safe for you while you are experiencing symptoms. Keep all follow-up visits as told by your health care provider. This is important. Contact a health care provider if: You develop symptoms that are different or more severe than your usual migraine headache symptoms. You have more than 15 headache days in one month. Get help right away if: Your migraine headache becomes severe. Your migraine headache lasts longer than 72 hours. You have a fever. You have a stiff neck. You have vision loss. Your muscles feel weak or like you cannot control them. You start to lose your balance often. You have trouble walking. You faint. You have a seizure. Summary A migraine headache is an intense, throbbing pain on one side or both sides of the head. Migraines may also cause other symptoms, such as nausea, vomiting, and sensitivity to light and noise. This condition may be treated with medicines and lifestyle changes. You may also need to avoid certain things that trigger a migraine headache. Keep a journal to find out what may trigger your migraine headaches. Contact your health care provider if you have more than 15 headache days in a month or you develop symptoms that are different or more severe than your usual migraine headache symptoms. This information is not intended to replace advice given to you by your health care provider. Make sure you discuss any questions you have with your health care provider. Document Revised: 10/15/2019 Document Reviewed: 08/05/2019 [employer] Patient Education 2022 [employer]. Follow Up Care 06/26/2023 18:32:26 With:Pb BAUMAN Address: [address] [place] [address] [place] [address]- [phone] Business (1) When:06/29/2023 20:47:03 Comments:Follow-up with your primary care provider in 3 to 5 days. If symptoms worsen, do not improve, or new symptoms arise please report back to emergency department for further evaluation. Continue to monitor your blood pressure, and you may start 20 mg of lisinopril daily. [facility] 03-05-2023 Hospital Discharge instructions Patient Education 03/05/2023 15:23:35 Diverticulosis Diverticulosis Diverticulosis is a condition that develops when small pouches (diverticula) form in the wall of the large intestine (colon). The colon is where water is absorbed and stool (feces) is formed. The pouches form when the inside layer of the colon pushes through weak spots in the outer layers of the colon. You may have a few pouches or many of them. The pouches usually do not cause problems unless they become inflamed or infected. When this happens, the condition is called diverticulitis. What are the causes? The cause of this condition is not known. What increases the risk? The following factors may make you more likely to develop this condition: Being older than age 60. Your risk for this condition increases with age. Diverticulosis is rare among people younger than age 30. By age 80, many people have it. Eating a low-fiber diet. Having frequent constipation. Being overweight. Not getting enough exercise. Smoking. Taking stuk-qle-kmjxset pain medicines, like aspirin and ibuprofen. Having a family history of diverticulosis. What are the signs or symptoms? In most people, there are no symptoms of this condition. If you do have symptoms, they may include: Bloating. Cramps in the abdomen. Constipation or diarrhea. Pain in the lower left side of the abdomen. How is this diagnosed? Because diverticulosis usually has no symptoms, it is most often diagnosed during an exam for other colon problems. The condition may be diagnosed by: Using a flexible scope to examine the colon (colonoscopy). Taking an X-ray of the colon after dye has been put into the colon (barium enema). Having a CT scan. How is this treated? You may not need treatment for this condition. Your health care provider may recommend treatment to prevent problems. You may need treatment if you have symptoms or if you previously had diverticulitis. Treatment may include: Eating a high-fiber diet. Taking a fiber supplement. Taking a live bacteria supplement (probiotic). Taking medicine to relax your colon. Follow these instructions at home: Medicines Take treh-vqy-kqkiajf and prescription medicines only as told by your health care provider. If told by your health care provider, take a fiber supplement or probiotic. Constipation prevention Your condition may cause constipation. To prevent or treat constipation, you may need to: Drink enough fluid to keep your urine pale yellow. Take zuez-kam-tkaxzli or prescription medicines. Eat foods that are high in fiber, such as beans, whole grains, and fresh fruits and vegetables. Limit foods that are high in fat and processed sugars, such as fried or sweet foods. General instructions Try not to strain when you have a bowel movement. Keep all follow-up visits as told by your health care provider. This is important. Contact a health care provider if you: Have pain in your abdomen. Have bloating. Have cramps. Have not had a bowel movement in 3 days. Get help right away if: Your pain gets worse. Your bloating becomes very bad. You have a fever or chills, and your symptoms suddenly get worse. You vomit. You have bowel movements that are bloody or black. You have bleeding from your rectum. Summary Diverticulosis is a condition that develops when small pouches (diverticula) form in the wall of the large intestine (colon). You may have a few pouches or many of them. This condition is most often diagnosed during an exam for other colon problems. Treatment may include increasing the fiber in your diet, taking supplements, or taking medicines. This information is not intended to replace advice given to you by your health care provider. Make sure you discuss any questions you have with your health care provider. Document Revised: 01/20/2020 Document Reviewed: 01/20/2020 [employer] Patient Education 2022 [employer]. 03/05/2023 15:03:18 Peptic Ulcer Peptic Ulcer A peptic ulcer is a sore in the lining of the stomach (gastric ulcer) or the first part of the small intestine (duodenal ulcer). The ulcer causes a gradual wearing away (erosion) of the deeper tissue. What are the causes? Normally, the lining of the stomach and the small intestine protects them from the acid that digests food. The protective lining can be damaged by: An infection caused by a type of bacteria called Helicobacter pylori or H. pylori. Regular use of NSAIDs, such as ibuprofen or aspirin. Rare tumors in the stomach, small intestine, or pancreas (Eduardo Harvey syndrome). What increases the risk? The following factors may make you more likely to develop this condition: Smoking. Having a family history of ulcer disease. Drinking alcohol. Having been hospitalized in an intensive care unit (ICU). What are the signs or symptoms? Symptoms of this condition include: Persistent burning pain in the area between the chest and the belly button. The pain may be worse on an empty stomach and at night. Heartburn. Nausea and vomiting. Bloating. If the ulcer results in bleeding, it can cause: Black, tarry stools. Vomiting of bright red blood. Vomiting of material that looks like coffee grounds. How is this diagnosed? This condition may be diagnosed based on: Your medical history and a physical exam. Various tests or procedures, such as: ?Upper endoscopy. The health care provider examines the esophagus, stomach, and small intestine using a small flexible tube that has a video camera at the end. ?Blood tests, stool tests, or breath tests to check for the H. pylori bacteria. ?An X-ray exam (upper gastrointestinal series) of the esophagus, stomach, and small intestine. ?A biopsy to help find certain causes of ulcers. A tissue sample is removed during upper endoscopy to be examined under a microscope. How is this treated? Treatment for this condition may include: Eliminating the cause of the ulcer, such as smoking or use of NSAIDs, and limiting alcohol and caffeine intake. Medicines to reduce the amount of acid in your digestive tract. Antibiotic medicines, if the ulcer is caused by an H. pylori infection. An upper endoscopy may be used to treat a bleeding ulcer. Surgery. This may be needed if the bleeding is severe or if the ulcer created a hole somewhere in the digestive system. Follow these instructions at home: Do not drink alcohol if your health care provider tells you not to drink. Do not use any products that contain nicotine or tobacco. These products include cigarettes, chewing tobacco, and vaping devices, such as e-cigarettes. If you need help quitting, ask your health care provider. Take dotw-omi-lbxxzsy and prescription medicines only as told by your health care provider. ?Do not use mfbu-jeu-wfpslrd medicines in place of prescription medicines unless your health care provider approves. ?Do not take aspirin, ibuprofen, or other NSAIDs unless your health care provider tells you to. Keep all follow-up visits. This is important. Contact a health care provider if: Your symptoms do not improve within 7 days of starting treatment. You have ongoing indigestion or heartburn. Get help right away if: You have sudden, sharp, or persistent pain in your abdomen. You have bloody or dark black, tarry stools. You vomit blood or material that looks like coffee grounds. You become light-headed or you feel faint. You become weak. You become sweaty or clammy. These symptoms may be an emergency. Get help right away. Call 911. Do not wait to see if the symptoms will go away. Do not drive yourself to the hospital. Summary A peptic ulcer is a sore in the lining of the stomach (gastric ulcer) or the first part of the small intestine (duodenal ulcer). The ulcer causes a gradual wearing away (erosion) of the deeper tissue. Do not use any products that contain nicotine or tobacco. These products include cigarettes, chewing tobacco, and vaping devices, such as e-cigarettes. If you need help quitting, ask your health care provider. Take dljg-ozn-oxqcthq and prescription medicines only as told by your health care provider. Do not use egqt-ngh-atwrxlk medicines in place of prescription medicines unless your health care provider approves. Limit your alcohol and caffeine intake. Keep all follow-up visits. This is important. This information is not intended to replace advice given to you by your health care provider. Make sure you discuss any questions you have with your health care provider. Document Revised: 02/01/2022 Document Reviewed: 02/01/2022 [employer] Patient Education 2022 [employer]. Follow Up Care 02/19/2023 08:31:55 With:Morena Rousseau CNP Address: When:3 months [facility] 02-06-2023 Note [id number] [facility] 02-05-2023 Hospital Discharge instructions Patient Education 02/05/2023 13:36:56 Upper Endoscopy, Adult, Care After Upper Endoscopy, Adult, Care After This sheet gives you information about how to care for yourself after your procedure. Your health care provider may also give you more specific instructions. If you have problems or questions, contact your health care provider. What can I expect after the procedure? After the procedure, it is common to have: A sore throat. Mild stomach pain or discomfort. Bloating. Nausea. Follow these instructions at home: Follow instructions from your health care provider about what to eat or drink after your procedure. Return to your normal activities as told by your health care provider. Ask your health care provider what activities are safe for you. Take skeg-kpb-clnleav and prescription medicines only as told by your health care provider. If you were given a sedative during the procedure, it can affect you for several hours. Do not drive or operate machinery until your health care provider says that it is safe. Keep all follow-up visits as told by your health care provider. This is important. Contact a health care provider if you have: A sore throat that lasts longer than one day. Trouble swallowing. Get help right away if: You vomit blood or your vomit looks like coffee grounds. You have: ?A fever. ?Bloody, black, or tarry stools. ?A severe sore throat or you cannot swallow. ?Difficulty breathing. ?Severe pain in your chest or abdomen. Summary After the procedure, it is common to have a sore throat, mild stomach discomfort, bloating, and nausea. If you were given a sedative during the procedure, it can affect you for several hours. Do not drive or operate machinery until your health care provider says that it is safe. Follow instructions from your health care provider about what to eat or drink after your procedure. Return to your normal activities as told by your health care provider. This information is not intended to replace advice given to you by your health care provider. Make sure you discuss any questions you have with your health care provider. Document Revised: 04/28/2020 Document Reviewed: 11/23/2018 [employer] Patient Education 2022 [employer]. 02/05/2023 13:36:26 Colonoscopy, Care After Surgery [facility] (CUSTOM) Colonoscopy Care After Surgery Please read the instructions outlined below and refer to this sheet in the next few weeks. These discharge instructions provide you with general information on caring for yourself after you leave the hospital. Your doctor may also give you specific instructions. While your treatment has been planned according to the most current medical practices available, unavoidable complications occasionally occur. If you have any problems or questions after discharge, please call your doctor. ACTIVITY You may resume your regular activity, but move at a slower pace for the next 24 hours. Take frequent rest periods for the next 24 hours. Walking will help get rid of the air and reduce the bloated feeling in your abdomen (belly). No driving for 24 hours (because of the anesthesia (medicine) used during the test). You may shower. Do not sign any important legal documents or operate any machinery for 24 hours (because of the anesthesia used during the test). NUTRITION Drink plenty of fluids. You may resume your normal diet as instructed by your doctor. Begin with a light meal and progress to your normal diet. Heavy or fried foods are harder to digest and may make you feel nauseated (sick to your stomach). Avoid alcoholic beverages for 24 hours or as instructed. MEDICATIONS You may resume your normal medications unless your doctor tells you otherwise. WHAT YOU CAN EXPECT TODAY Some feelings of bloating in the abdomen. Passage of more gas than usual. Spotting of blood in your stool or on the toilet paper. FOLLOW-UP Your doctor will discuss the results of your test with you. SEEK IMMEDIATE MEDICAL ATTENTION IF: There is more than a spotting of blood in your stool. There is abdominal distention (your abdomen is swollen). There is vomiting. You have a temperature over 101.5 F. There is abdominal pain or discomfort that is severe or gets worse throughout the day. 02/05/2023 13:36:21 Diverticulosis MAGR (CUSTOM) Diverticulosis Many people have small pouches in their colon called diverticulum. The diverticulum bulge outward through weak spots in the colon. You could have one or more of these pouches in the colon. The condition of having these pouches in the colon is called diverticulosis or diverticular disease. Diverticulosis is usually diagnosed by tests to evaluate something else. For example, you may have had a colonoscopy to screen for colon cancer when the diverticulosis was found. Most people with diverticulosis do not have any discomfort or problems. If symptoms develop, they may include mild cramps, bloating, and constipation. A complication of this condition is called diverticulitis. This is when the diverticulum become inflamed and infected. How to treat diverticulosis: Increasing the amount of fiber in the diet may reduce symptoms of diverticulosis and prevent complications such as diverticulitis (infected diverticuli). Fiber keeps stool soft and lowers pressure inside the colon so that bowel contents can move through easily. You should eat 20 to 35 grams of fiber each day. The table below shows the amount of fiber in some foods that you can easily add to your diet. Adding fiber slowly may decrease the bloating and fullness sometimes felt with an immediate high fiber diet. The doctor may also recommend taking a fiber product such as Citrucel or Metamucil once a day. In the past people with diverticulosis were to avoid nuts, corn, and seeds. This has not been found to be true. If you find that certain foods create cramping or bloating, avoid that food. Foods high in fiber include: Fresh fruits, fresh vegetables, legumes (beans), whole wheat bread, bran muffins or cereal, and nuts. See the table below for examples of high fiber foods. Remember, your goal is 20-35 grams per day. Amount of fiber in different foods Food Serving Grams of fiber Fruits Apple (with skin) 1 medium apple 4.4 Banana 1 medium banana 3.1 Oranges 1 orange 3.1 Prunes 1 cup, pitted 12.4 Juices Apple, unsweetened, w/added ascorbic acid 1 cup 0.5 Grapefruit, white, canned, sweetened 1 cup 0.2 Grape, unsweetened, w/added ascorbic acid 1 cup 0.5 Island 1 cup 0.7 Vegetables Cooked Green beans 1 cup 4.0 Carrots 1/2 cup sliced 2.3 Peas 1 cup 8.8 Potato (baked, with skin) 1 medium potato 3.8 Raw Meridian (with peel) 1 cucumber 1.5 Lettuce 1 cup shredded 0.5 Tomato 1 medium tomato 1.5 Spinach 1 cup 0.7 Legumes Baked beans, canned, no salt added 1 cup 13.9 Kidney beans, canned 1 cup 13.6 Hicks beans, canned 1 cup 11.6 Lentils, boiled 1 cup 15.6 Breads, pastas, flours Bran muffins 1 medium muffin 5.2 Oatmeal, cooked 1 cup 4.0 White bread 1 slice 0.6 Whole-wheat bread 1 slice 1.9 Pasta and rice, cooked Macaroni 1 cup 2.5 Rice, brown 1 cup 3.5 Rice, white 1 cup 0.6 Spaghetti (regular) 1 cup 2.5 Nuts Almonds 1/2 cup 8.7 Peanuts 1/2 cup 7.9 Chart from [facility] 2013. SEEK IMMEDIATE MEDICAL CARE IF: You develop abdominal (belly) pain. An oral temperature above _ 101 F__develops. Repeated vomiting occurs. Blood is being passed in stools (bright red or black tarry stools). You develop any bowel problems or changes which you have not had before. Extra Information: To learn how much fiber and other nutrients are in different foods, visit the [place] Department of Agriculture (USDA) National Nutrient Database at: http://www.nal.usda.gov/fnic/food comp/search/ Created using data from the USDA National Nutrient Database for Standard Reference. Available at http://www.nal.usda.gov/fnic/food comp/search/. Information adapted from: [facility] Patient Information 2009 [employer]. [employer] 2012 http://www.[employer]/contents/ yhxwfvzzqili-vhwmmgl-gduisn-the-b asics 02/05/2023 13:36:13 Esophageal Dilatation Esophageal Dilatation Esophageal dilatation, also called esophageal dilation, is a procedure to widen or open a blocked or narrowed part of the esophagus. The esophagus is the part of the body that moves food and liquid from the mouth to the stomach. You may need this procedure if: You have a buildup of scar tissue in your esophagus that makes it difficult, painful, or impossible to swallow. This can be caused by gastroesophageal reflux disease (GERD). You have cancer of the esophagus. There is a problem with how food moves through your esophagus. In some cases, you may need this procedure repeated at a later time to dilate the esophagus gradually. Tell a health care provider about: Any allergies you have. All medicines you are taking, including vitamins, herbs, eye drops, creams, and rlko-uyo-irelegz medicines. Any problems you or family members have had with anesthetic medicines. Any blood disorders you have. Any surgeries you have had. Any medical conditions you have. Any antibiotic medicines you are required to take before dental procedures. Whether you are or may be . What are the risks? Generally, this is a safe procedure. However, problems may occur, including: Bleeding due to a tear in the lining of the esophagus. A hole, or perforation, in the esophagus. What happens before the procedure? Ask your health care provider about: ?Changing or stopping your regular medicines. This is especially important if you are taking diabetes medicines or blood thinners. ?Taking medicines such as aspirin and ibuprofen. These medicines can thin your blood. Do not take these medicines unless your health care provider tells you to take them. ?Taking axpl-oun-mbuijeb medicines, vitamins, herbs, and supplements. Follow instructions from your health care provider about eating or drinking restrictions. Plan to have a responsible adult take you home from the hospital or clinic. Plan to have a responsible adult care for you for the time you are told after you leave the hospital or clinic. This is important. What happens during the procedure? You may be given a medicine to help you relax (sedative). A numbing medicine may be sprayed into the back of your throat, or you may gargle the medicine. Your health care provider may perform the dilatation using various surgical instruments, such as: ?Simple dilators. This instrument is carefully placed in the esophagus to stretch it. ?Guided wire bougies. This involves using an endoscope to insert a wire into the esophagus. A dilator is passed over this wire to enlarge the esophagus. Then the wire is removed. ?Balloon dilators. An endoscope with a small balloon is inserted into the esophagus. The balloon is inflated to stretch the esophagus and open it up. The procedure may vary among health care providers and hospitals. What can I expect after the procedure? Your blood pressure, heart rate, breathing rate, and blood oxygen level will be monitored until you leave the hospital or clinic. Your throat may feel slightly sore and numb. This will get better over time. You will not be allowed to eat or drink until your throat is no longer numb. When you are able to drink, urinate, and sit on the edge of the bed without nausea or dizziness, you may be able to return home. Follow these instructions at home: Take hwdg-hhq-oiweura and prescription medicines only as told by your health care provider. If you were given a sedative during the procedure, it can affect you for several hours. Do not drive or operate machinery until your health care provider says that it is safe. Plan to have a responsible adult care for you for the time you are told. This is important. Follow instructions from your health care provider about any eating or drinking restrictions. Do not use any products that contain nicotine or tobacco, such as cigarettes, e-cigarettes, and chewing tobacco. If you need help quitting, ask your health care provider. Keep all follow-up visits. This is important. Contact a health care provider if: You have a fever. You have pain that is not relieved by medicine. Get help right away if: You have chest pain. You have trouble breathing. You have trouble swallowing. You vomit blood. You have black, tarry, or bloody stools. These symptoms may represent a serious problem that is an emergency. Do not wait to see if the symptoms will go away. Get medical help right away. Call your local emergency services (911 in the [place] Do not drive yourself to the hospital. Summary Esophageal dilatation, also called esophageal dilation, is a procedure to widen or open a blocked or narrowed part of the esophagus. Plan to have a responsible adult take you home from the hospital or clinic. For this procedure, a numbing medicine may be sprayed into the back of your throat, or you may gargle the medicine. Do not drive or operate machinery until your health care provider says that it is safe. This information is not intended to replace advice given to you by your health care provider. Make sure you discuss any questions you have with your health care provider. Document Revised: 11/08/2020 Document Reviewed: 11/08/2020 [employer] Patient Education 2022 [employer]. Follow Up Care 12/18/2022 09:52:48 With:OMAR CROCKER, LAINEY Parker, [facility] Address: [address] [place] [address]. [address] [place] [address] When: Unknown Comments:Call for any problems. Office will call to schedule follow up appointment [facility] 02-05-2023 Evaluation + Plan note Extrac mariposa from: Title:ANES [facility] Author:Frank Adams DO. Date:02/05/23 Plan Transfer/Discharge: Patient exhibiting no signs of N/V. Hydration status is adequate. Extracted from: Title:[facility] PRE Author:Ronny Adams DO. Date:02/05/23 Plan [place] Society of Anesthesiologists (ASA) physical status classification: Class II. Anesthetic Preoperative Plan: Anesthesia General. [facility]06-21-2023 NoteHNO ID: [id number] Author: Marko Cordova PA-C Service: ? Author Type: Physician Tilesetter Type: Progress Notes Filed: 12/25/2022 12:05 PM Note Text: CONSULT ORTHOPAEDIC: KNEE PRIMARY CARE PHYSICIAN: No primary care provider on file. 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 Past surgical history of left total knee arthroplasty on 11/18/[address] Pereira followed by left knee revision due to aseptic loosening on 12/20/[address] Meredith. No complaints with her left knee. Complaining of 6 months of right knee pain primarily to the posterior and medial aspect. Pain is intermittent and mostly present at the end of the day after continued ambulation or excessive exercise. Often bicycles with no issues. Intermittently take Motrin with no relief. Received a gel shot to her left knee before her initial total knee arthroplasty but has never received any gel shot or cortisone shot to the right knee. Patient does have absence of 1 kidney and does not like to take too many nonsteroidal anti-inflammatory medications. After discussion with Jessenia Wing, continued non-operative management of physical therapy and injection(s) was chosen. The patient currently has had progressive symptoms. Risks and benefits of cortisone injection were discussed with the patient as well as potential side effects. Allergies verified. Patient agrees to cortisone injection of the right knee. Time out was performed. Injection site marked. Aspiration was not performed. Injection performed under sterile technique without any difficulties. Patient tolerated procedure well and was able to ambulate without difficulty after injection. Advised patient to rest for the next 24 hours. Advised patient to return to ED and alert our office with any signs/symptoms of infection including but not limited to fever, pain out of proportion with knee ROM, hot/red/swollen knee joint. Large Joint Arthro/Inj: R knee joint Informed Consent Consent Obtained: Verbal [place] Protocol A moment to CARE was completed. SIGN IN Personnel directly involved with the procedure wore the appropriate PPE. Special Equipment: N/A Patient/Surrogate Stated/Verified: Patient name, Date of , Relevant allergies and Intended procedure TIME OUT Intended patient and procedure match the source document(s). Consent documented and matches the intended procedure. Relevant labs, photos, and/or imaging studies have been reviewed. Correct side/site marked and visible. Medications required for procedure verified. Fire risk assessed and interventions discussed. No implant(s) inserted. 12/25/2022 11:07 AM The procedure site was prepped in the usual sterile fashion. Site: R knee joint Medications: 12 mg betamethasone acetate-betamethasone sodium phosphate 6 mg/mL Anesthetics: 5 mL lidocaine (PF) 10 mg/mL (1 %) Outcome: Tolerated well, no immediate complications Post-injection instructions were reviewed with the patient and the patient voiced understanding of these instructions. SIGN OUT All instruments, equipment, possible retained foreign bodies accounted for. Progressive Symptoms Include: Pain worsened by weight bearing. The patient has been ordered: Physical therapy CONSULTS: Patient does not require consults for optimization at this time. ACTIVE PROBLEM LIST S/P Repair of Recurrent Ventral Hernia Muscular Abdominal Pain in Right Flank Primary Osteoarthritis of Left Knee Patellofemoral Syndrome of Left Knee Asthma Obesity Oa (Osteoarthritis) of Knee Status Post Total Left Knee Replacement Hypertension Congenital Absence of One Kidney Obesity, Class II, Bmi 35-39.9 S/P Revision of Total Knee, Left SUBJECTIVE CHIEF COMPLAINT: Knee Pain HPI: Jessenia Wing is a 52 year old patient here for evaluation and management of right knee pain. Jessenia Wing has had progressive problems with the knee(s) multiple times a day over the past 6 month(s) interfering with activities which include exercise and walking. The problem began limiting activities 1-6 months ago. Currently the pain in the joint is rated at 4 out of 10 with minimal activity. The pain is intermittent and is located along the inside aspect and in the back. The pain is described as aching and stiffness. Relieving factors include no relieving factors. There is no specific incident that brought about this pain. Jessenia Wing has no additional complaints. FUNCTIONAL STATUS: Participate in moderate recreational activities, such as golf, bowling, dancing, doubles tennis, or throwing a baseball or football (6.00 METs) Total Joint Athroplasty - Risk Calculator PREVIOUS TREATMENTS: Medical Treatments: OTC NSAIDS for 3 Months or Greater (Aleve) Physical The (more content not included)...[facility]06-21-2023 NoteHNO ID: [id number] Author: Katiuska Marina RT(R) Service: ? Author Type: Technologist Type: Progress Notes Filed: 12/25/2022 10:24 AM Note Text: Radiology Service Progress Note PATIENT NAME: Jessenia Wing DATE OF SERVICE: December 25, 2022 TIME: 10:24 AM PATIENT IDENTITY VERIFICATION COMPLETED USING TWO (2) IDENTIFIERS: Name and Date of confirmed by patient verbally. FALL SCREENING: Has the patient had 2 falls in the last year or 1 fall with injury or currently using an Ambulatory Assistive Device (Walker, Cane, Wheelchair, Crutches, etc.)? No PATIENT GENDER DATA: Female. status: : No status: NO. PATIENT RELEVANT IMPLANT DATA REVIEWED: Not Applicable RADIOLOGY DEPARTMENT: General X-ray: Exam(s) Completed: Lower Extremity X-Ray(s): Knee, AP / Lat / Tunne / Merchant Right and Wt. Bearing PERIPHERAL IV DATA: Not applicable SIGNED BY: RT Lizbeth(R) December 25, 2022 10:24 [facility]06-21-2023 History of Present illness Narrative* Marko Cordova PA-C - 12/25/2022 10:35 AM EDTAssociated Order(s): Large Joint Arthro/Inj: R knee joint Post-Procedure Diagnose(s): Primary osteoarthritis of right knee CONSULT ORTHOPAEDIC: KNEE PRIMARY CARE PHYSICIAN: No primary care provider on file. 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 Past surgical history of left total knee arthroplasty on 11/18/[address] Pereira followed by left knee revision due to aseptic loosening on 12/20/[address] Meredith. No complaints with her left knee. Complaining of 6 months of right knee pain primarily to the posterior and medial aspect. Pain is intermittent and mostly present at the end of the day after continued ambulation or excessive exercise. Often bicycles with no issues. Intermittently take Motrin with no relief. Received a gel shot to her left knee before her initial total knee arthroplasty but has never received any gel shot or cortisone shot to the right knee. Patient does have absence of 1 kidney and does not like to take too many nonsteroidal anti-inflammatory medications. After discussion with Jessenia Wing, continued non-operative management of physical therapy and injection(s) was chosen. The patient currently has had progressive symptoms. Risks and benefits of cortisone injection were discussed with the patient as well as potential sideeffects. Allergies verified. Patient agrees to cortisone injection of the right knee. Time out was performed. Injection site marked. Aspiration was not performed. Injection performed under sterile technique without any difficulties. Patient tolerated procedure well and was able to ambulate without difficulty after injection. Advised patient to rest for the next 24 hours. Advised patient to returnto ED and alert our office with any signs/symptoms of infection including but not limited to fever,pain out of proportion with knee ROM, hot/red/swollen knee joint. Large Joint Arthro/Inj: R knee joint Informed Consent Consent Obtained: Verbal [place] Protocol A moment to CARE was completed. SIGN IN Personnel directly involved with the procedure wore the appropriate PPE. Special Equipment: N/A Patient/Surrogate Stated/Verified: Patient name, Date of , Relevant allergies and Intended procedure TIME OUT Intended patient and procedure match the source document(s). Consent documented and matches the intended procedure. Relevant labs, photos, and/or imaging studies have been reviewed. Correct side/site marked and visible. Medications required for procedure verified. Fire risk assessed and interventions discussed. No implant(s) inserted. 12/25/2022 11:07 AM The procedure site was prepped in the usual sterile fashion. Site: R knee joint Medications: 12 mg betamethasone acetate-betamethasone sodium phosphate 6 mg/mL Anesthetics: 5 mL lidocaine (PF) 10 mg/mL (1 %) Outcome: Tolerated well, no immediate complications Post-injection instructions were reviewed with the patient and the patient voiced understanding of these instructions. SIGN OUT All instruments, equipment, possible retained foreign bodies accounted for. Progressive Symptoms Include: Pain worsened by weight bearing. The patient has been ordered: Physical therapy CONSULTS: Patient does not require consults for optimization at this time. ACTIVE PROBLEM LIST S/P Repair of Recurrent Ventral Hernia Muscular Abdominal Pain in Right Flank Primary Osteoarthritis of Left Knee Patellofemoral Syndrome of Left Knee Asthma Obesity Oa (Osteoarthritis) of Knee Status Post Total Left Knee Replacement Hypertension Congenital Absence of One Kidney Obesity, Class II, Bmi 35-39.9 S/P Revision of Total Knee, Left SUBJECTIVE CHIEF COMPLAINT: Knee Pain HPI: Jessenia Wing is a 52 year old patient here for evaluation and management of right knee pain. Jessenia Wing has had progressive problems with the knee(s) multiple times a day over the past 6 month(s) interfering with activities which include exercise and walking. The problem began limiting activities 1-6 months ago. Currently the pain in the joint is rated at 4 out of 10 with minimal activity. The pain is intermittent and is located along the inside aspect and in the back. The pain is described as aching and stiffness. Relieving factors include no relieving factors. There is no specific incident that brought about this pain. Jessenia Wing has no additional complaints. FUNCTIONAL STATUS: Participate in moderate recreational activities, such as golf, bowling, dancing,doubles tennis, or throwing a baseball or football (6.00 METs) Total Joint Athroplasty - Risk Calculator PREVIOUS TREATMENTS: Medical Treatments: OTC NSAIDS for 3 Months or Greater (Aleve) Physical Therapy: Activities Modified REVIEW OF SYSTEMS: PAIN ASSESSMENT: See HPI. MUSCULOSKELETAL: See HPI. Risk Factors for Total Joint Arthroplasty (TJA) Obesity Moderate Risk High: BMI > 40 Moderate: BMI 30-40 Normal: BMI < 30 Diabetes normal High: A1C > 8 Moderate: A1C 7-8 Normal: A1C < 7 Smoking normal High: Current smoker Normal: Non smoker Anemia normal High: Hgb < 11.5 (women) N/A: Hgb >= 11.5 (women) Nutritional Status normal High: Alb<3.4, or prealb<15, or serum transferrin<200, or total lymphocyte count<1500 Normal: normal labs COPD normal High: dx of COPD Normal: no dx of COPD MRSA normal High: dx of MRSA or positive lab test Normal: no MRSA CKD normal High: eGFR<60 Moderate: eGFR 60-89 Normal: eGFR>90 Hx of DVT / PE normal High: dx of DVT / PE Normal: no dx of DVT / PE Narcotics Use normal High:NarxCare >=300 Moderate: 100-299 Normal: 0-99 GAIL normal High: dx of GAIL N/A: no dx of GAIL Coagulation High Risk High:PT Sec>13, or PT INR>1.3, or APTT>32.4, or Plt ct<150k Moderate: on anticoag but none of the above Normal: none Obesity: weight management recommended BMI Readings from Last 3 Encounters: 12/25/22 : 37.74 kg/m 12/20/20 : 35.53 kg/m 11/30/20 : 35.51 kg/m Coagulation Coag/Hyper Coag Labs Latest Ref Rng & Units 11/30/2020 PT INR 0.9 - 1.3 1.0 PT SEC 9.7 - 13.0 sec 10.4 Hemoglobin and Platelets Latest Ref Rng & Units 11/30/2020 12/20/2020 12/21/2020 HEMOGLOBIN 11.5 - 15.5 g/dL 13.1 10.4(L) 9.3(L) PLATELETS 150 - 400 k/uL 198 120(L) 110(L) Other Risk Factors None PAST MEDICAL HISTORY Diagnosis Date Asthma Congenital absence of one kidney HTN (hypertension) Muscular abdominal pain in right flank 04/30/2012 OA (osteoarthritis) of knee Obesity Pneumonia 2010 S/P repair of recurrent ventral hernia 01/27/2012 PAST SURGICAL HISTORY Procedure Laterality Date ARTHRP KNE CONDYLE&PLATU MEDIAL&LAT COMPARTMENTS Left 11/18/2016 PAST SURGICAL HISTORY OF cholestectomy PAST SURGICAL HISTORY OF umb hernia repair / 06/2004, 01/2011 PAST SURGICAL HISTORY OF c-sec PAST SURGICAL HISTORY OF left knee arthroscopy REPAIR FIRST ABDOMINAL WALL HERNIA 11/2011 Hernia repair, incisional REVISION OF KNEE JOINT Left 12/20/2020 FAMILY HISTORY Problem Relation Age of Onset Anesthesia Problems No Family History Social History Tobacco Use Smoking status: Never Smokeless tobacco: Never Substance Use Topics Alcohol use: Yes Alcohol/week: 1.0 - 2.0 standard drink Types: 1 - 2 Glasses of Wine (5oz) per week Comment: social-weekends Drug use: No ALLERGIES: Seasonal Allergies MEDICATIONS: lisinopril (ZESTRIL, PRINIVIL) 10 mg tablet Take 10 mg by mouth once daily. aspirin, enteric coated (ECOTRIN LOW STRENGTH) 81 mg EC tablet Take 1 tablet by mouth twice daily. (Patient not taking: Reported on 12/25/2022) pantoprazole DR (PROTONIX) 20 mg tablet Take 1 tablet by mouth once daily for 14 days. sertraline (ZOLOFT) 50 mg tablet TAKE 1 & 1 2 (ONE & ONE HALF) TABLETS BY MOUTH ONCE DAILY (Patient not taking: Reported on 12/25/2022) hydroCHLOROthiazide (HYDRODIURIL, ESIDRIX) 12.5 mg tablet Take 12.5 mg by mouth. lisinopril-hydrochlorothiazide (PRINZIDE, ZESTORETIC) 20-25 mg per tablet Take 1 tablet by mouth once daily. (Patient not taking: Reported on 12/25/2022) mometasone-formoterol (DULERA) 100-5 mcg/actuation inhaler Inhale 2 Puffs as instructed twice daily. (Patient not taking: Reported on 12/25/2022) PHYSICAL EXAM: BP 112/78 Pulse 60 Ht 167.6 cm (5' 6 ) Wt 106.1 kg (233 lb 12.8 oz) BMI 37.74 kg/m All other systems deferred. GENERAL: Appears healthy, well-nourished, no deformities. HABITUS: Obese GAIT: Normal, the patient did not have trouble getting onto the exam table. KNEE EXAM: Right: Alignment: Varus deformity, Correctable Range of motion is 10 degrees in extension and 120 degrees of flexion. Extension La Pain with ROM: No Effusion: Slight Tender to the palpation of Medial joint line Pain with patellar compression: No Stability: Anterior/Posterior stable and Varus/Valgus stable Hip Exam: flexion to 100+ degrees, full extension, internal/external rotation adequate, and no painwith log roll Neurovascular Status: Sensation Intact, Moves foot and ankle up & down, Moves toes up and down,and 2+ dorsalis pedis DATA: Diagnostic tests reviewed for today's visit: Right knee X-Ray: Severe tri-compartmental degeneration, Medial joint space noted to have severe degenerative changes, and Bone on bone contact of the medial joint space(s) The following conditions were addressed during the office visit today: Obesity - Weight management strategies were discussed including diet and exercise. A Consult to Weight Management will be completed to follow up on the plan of care. SIGNATURE: Marko Cordova PA-C PATIENT NAME: Jessenia Wing DATE: December 25, 2022 TIME: 10:36 AM [facility] Note [id number]:[email or web address] 09-02-2022 Hospital Discharge instructions Patient Education 09/02/2022 12:56:28 CV - EVLT Discharge Instructions (Custom) Missing Image - the embedded image is not supported 1.Leave the Unna boot on for 1 week, then shower and place Calamine Lotion on your leg and put on support stockings. 2.Take Advil (Motrin, ibuprofen) 1 or 2 tabs each 8 hours for one week after your procedure. Take with food. 3.Walk for at least 20 minutes several times during the day of the procedure and several times daily for three days afterward. 4.Do not drive for 24 hours after your procedure. 5.Do not use a hot tub, swim, or take a hot bath for the entire time Unna Boot is in place. 6.No running or vigorous exercising or lifting for one week after your procedure. 7.Do not fly for one week following your procedure 8.It is normal to experience some bruising, soreness, and a tightening sensation in the leg for 2-3weeks after the treatment. This should begin to subside after 2 weeks. 9.If you have any questions or concerns, call to speak with your doctor. [facility]: [phone]. Follow Up Care 08/13/2022 15:47:23 With:Rita Dover Address: [address] [place], [place] [address] Business (1) When:09/30/2022 10:30:00 Comments:Keep scheduled appointment [facility]08-19-2022 NoteHNO ID: [id number] Author: Augustus Pereira MD Service: ? Author Type: Physician Type: Progress Notes Filed: 02/22/2022 2:48 PM Note Text: This document has been created with the use of voice recognition technology. It may contain inaccuracies: misspellings, inaccurate syntax or word sense that escaped review. CHIEF COMPLAINT: Jessenia Wing is a 51 year old female who presents today for follow up of revision left total knee replacement. HISTORY OF PRESENT ILLNESS: PAIN EVALUATION 02/22/2022 1430 Pain Level: 4 Pain Location: Knee-Left Description: Other: See comment clicking, rubbing Duration Amount of Time: 1 Duration Units: Weeks Frequency: Intermittent Intervention/Comfort measure: Medication;Reposition;Relaxation;Positioning HISTORY: Jessenia Wing is here for follow up of complaints of left knee pain. She has postoperative left total knee replacement with subsequent revision for aseptic loosening with date of surgery for the revision 12/20/2020. She states that she has noted some discomfort over the medial and lateral tibia for the last week. There is no history of any injury. No instability. No fevers or chills or constitutional symptoms. 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 No hip or neurologic complaints. Has been taken some ibuprofen. No other musculoskeletal complaints ROS: REVIEW OF SYMPTOMS: Constitutional: patient denies any recent fever or significant change in weight Gastrointestinal: patient denies any current abdominal discomfort Musculoskeletal: as noted in the HPI Neurologic: as noted in the HPI SOCIAL HISTORY: Tobacco Use: Never ALLERGIES: ALLERGIES No Known Allergies PAST MEDICAL HISTORY: PAST MEDICAL HISTORY Diagnosis Date Asthma Congenital absence of one kidney HTN (hypertension) Muscular abdominal pain in right flank 04/30/2012 OA (osteoarthritis) of knee Obesity Pneumonia 2010 S/P repair of recurrent ventral hernia 01/27/2012 SOCIAL HISTORY: Tobacco Use: Never EXAMINATION: GENERAL: Appears healthy, well-nourished, no deformities. ORIENTATION: Alert and oriented to person place and time HABITUS: Normal GAIT: Normal, the patient did not have trouble getting onto the exam table. left knee exam: Healed midline incision No effusion, No tenderness with patellar apprehension Neutral alignment Active full extension, flexion 115. Good patellar tracking/no patella femoral crepitation Some tenderness over the medial lateral tibial plateaus with some mild crepitation Stable to varus and valgus stresses. Stable anterior/posterior drawer. Palpable dorsalis pedis pulse Calf soft and nontender. Hip exam negative Intact sensation to light touch distally. RADIOGRAPHS: XR Obtained today and personally reviewed by myself demonstrating revision total knee prosthesis. Medial augment with femoral and tibial stems. No evidence of loosening. IMPRESSION: Encounter Diagnosis ICD-10-CM 1. S/P revision of total knee, left Z96.652 Procedures Plan: Patient postoperative revision total knee replacement. Has some irritation around the tibial prosthesis. Recommend conservative treatment with activity modification, ice, [id number] NSAID. If this becomes more significant she will return for follow-up Follow-up as symptoms dictate Augustus Pereira [facility]08-19-2022 NoteHNO ID: [id number] Author: RT Brynn(R) Service: ? Author Type: Technologist Type: Progress Notes Filed: 02/22/2022 2:30 PM Note Text: Radiology Service Progress Note PATIENT NAME: Jessenia Srivastavar DATE OF SERVICE: February 22, 2022 TIME: 2:30 PM PATIENT IDENTITY VERIFICATION COMPLETED USING TWO (2) IDENTIFIERS: Name and Date of confirmed by patient verbally and Name and Date of confirmed by identification band. FALL SCREENING: Has the patient had 2 falls in the last year or 1 fall with injury or currently using an Ambulatory Assistive Device (Walker, Cane, Wheelchair, Crutches, etc.)? No PATIENT GENDER DATA: Female. status: : No status: NO. PATIENT RELEVANT IMPLANT DATA REVIEWED: Not Applicable RADIOLOGY DEPARTMENT: General X-ray: Exam(s) Completed: Lower Extremity X-Ray(s): Knee, AP / Lat / Merchant Left PERIPHERAL IV DATA: Not applicable SIGNED BY: Margi Moore, RT(R) February 22, 2022 2:30 [facility]05-03-2022 Evaluation + Plan note Future Scheduled Tests Laboratory* CBC w/ Indices 11/06/21 [facility] 05-03-2022 Hospital Discharge instructions Follow Up Care 11/06/2021 11:33:21 With:Akbar GARCES, DEJUAN Philip, PED Address: [address] [place] [id number] [phone] When:1 month only if needed [facility] 06-17-2021 NoteHNO ID: [id number] Author: Stanley Bunch PA-C Service: Orthopaedic Surgery Author Type: Physician Tilesetter Type: Progress Notes Filed: 12/21/2020 9:30 AM Note Text: ORTHOPAEDIC POSTOP PROGRESS NOTE SERVICE DATE: 12/21/2020 SERVICE TIME: 9:29 AM Subjective Jessenia Tovar Mecca is POD1 from . Patient states they are comfortable and were able to obtain rest overnight. Surgical site pain is controlled and they report mild incisional pain. Patient has ambulated with assistance. Patient denies any chest pain or calf pain. Patient has urinated, has passed gas, and has not had a bowel movement. They report they are ready and willing to go Home. Objective VITAL SIGNS: BP 113/69 Pulse (!) 53 Temp 36.8 ?C (98.2 ?F) (Oral) Resp 16 Ht 167.6 cm (5' 5.98 ) Wt 99.8 kg (220 lb 0.3 oz) SpO2 94% BMI 35.53 kg/m? INTAKE AND OUTPUT: Intake/Output Summary (Last 24 hours) at 12/21/2020 0929 Last data filed at 12/21/2020 0300 Gross per 24 hour Intake 3940 ml Output 1100 ml Net 2840 ml PHYSICAL EXAMINATION: Left Lower Extremity: Dorsalis pedis pulses palpable. Posterior tibial pulses palpable. Dorsi flexion 5/5. Plantar flexion 5/5. Extensor hallucis extension: 5/5. Sensory intact to light touch L1-S1. Dressing clean, dry and intact. Surgical site has no drainage and dressing intact. Problem Review and Assessment: Patient monitored, no new events overnight. LABS: Recent Labs 12/21/20 0310 12/20/20 1630 HB 9.3* 10.4* HCT 29.8* 33.1* DATA: Diagnostic tests reviewed for today's visit: Most recent labs and imaging results. Assessment/Plan S/P Procedure(s) (LRB): REVISION JOINT TOTAL KNEE FEMORAL AND ENTIRE TIBIAL COMPONENT (Left) on 12/20/2020 POSTOP PLAN: Physical Therapy evaluation Pain control Case Management for discharge planning DVT prophylaxis: Patient home with aspirin, additional anticoagulant is contraindicated due to bleeding risk and Graduated compression stockings (GCS) Jessenia Wing has been under my care as an inpatient for acute pain. An OARRS report for this patient has been reviewed during the inpatient hospital stay. The diagnosis requiring narcotic pain medication is Failure of total knee replacement, 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HCC) [T84.018A, Z96.659]. Patient will require an opioid prescription at discharge that will exceed 30 MED and/or 7 days because: Trials of non-opiate alternatives have not provided adequate analgesia. Yes The patient's current condition has required opioid dosing as an inpatient beyond 30 MED to provide adequate analgesia. Yes The patient has a pre-existing chronic pain or chronic opioid use history that necessitates doses beyond the 30 MED limit. Yes The patient's pain is expected to be severe and persistent enough to require opioid prescription beyond the 7-day recommended limit. No This patient will follow up with Dr. Meredith as an outpatient for further evaluation and treatment. ACTIVE PROBLEM LIST S/P Repair of Recurrent Ventral Hernia Muscular Abdominal Pain in Right Flank Primary Osteoarthritis of Left Knee Patellofemoral Syndrome of Left Knee Asthma Obesity Oa (Osteoarthritis) of Knee Status Post Total Left Knee Replacement Hypertension Congenital Absence of One Kidney Obesity, Class II, Bmi 35-39.9 S/P Revision of Total Knee, Left Medication and Non-Pharmacologic VTE Prophylaxis/Anticoagulants Anticoagulant AND Antiplatelet Medications (From admission, onward) Comment Start Dose Route Frequency Last Action Ordered Stop 12/21/20 0900 aspirin, enteric coated 81 mg tab(s) (Surgical Risk Categories) 81 mg ORAL 2 TIMES DAILY Given, 12/21 0855 12/20/20 1707 -- 12/21/20 0000 graduated compression stockings ([place]) 12/20/20 1715 graduated compression stockings ([place] 12/20/20 1715 activity - mobilize patient ([place]) VTE Prophylaxis: VTE prophylaxis appropriate POST OPERATIVE COMPLICATIONS: Complicated by: uneventful/none SIGNATURE: Stanley Bunch PA-C PATIENT NAME: Jessenia Wing DATE: 12/21/2020 TIME: 9:30 AM PAGER/CONTACT #: [phone] NoteHNO ID: [id number] Author: Zeke Prajapati II, DO Service: Anesthesiology Author Type: Anesthesiologist Type: Anesthesia Procedure Notes Filed: 12/20/2020 12:31 PM Note Text: ANESTHESIOLOGY PROCEDURE NOTE Spinal Block General Information Procedure Start Time/Medication Administration: 12/20/2020 12:26 PM Procedure End time: 12/20/2020 12:28 PM Patient location during procedure: pre-op Timeout Performed Pre-procedure: timeout performed Consent Obtained: Yes Patient identity confirmed: arm band Reason for Block: primary surgical anesthetic Staffing Anesthesiologist: Zeke Prajapati II, DO Performed by: anesthesiologist Preparation Sterility Preparation: hand hygiene performed prior to procedure, surgical cap used, mask used, sterile drape used during line insertion, skin prep agent completely dried prior to procedure Site Prep: Betadine Procedure Details Patient Position: sitting Ultrasound Guided: No Monitoring: NIBP, EKG and Pulse Ox Approach: Midline Location: L2-3 Injection Technique: single-shot Needle Needle Type: pencil-tip Needle Gauge: 25 G Needle Length: 3.5 in Assessment Sensory Level: T5 Events: tolerated well Medications Administered FentaNYL 50 mcg/mL injection (SUBLIMAZE) (Spinal), 25 mcg bupivacaine-dextrose 0.75 % (7.5 mg/mL) injection (SENSORCAINE MPF SPINAL), 2 mL SIGNATURE: Zeke Prajapati II, DO PATIENT NAME: Jessenia Srivastavar DATE: December 20, 2020 TIME: 12:30 PM CSN: [id number] NoteHNO ID: [id number] Author: Zeke Prajapati II, DO Service: Anesthesiology Author Type: Anesthesiologist Type: Anesthesia Procedure Notes Filed: 12/20/2020 12:05 PM Note Text: ANESTHESIOLOGY PROCEDURE NOTE Peripheral Nerve Block General Information Procedure Start Time/Medication Administration: 12/20/2020 11:50 AM Procedure End time: 12/20/2020 12:00 PM Patient location during procedure: pre-op Timeout Performed Pre-procedure: timeout performed Consent Obtained: Yes Patient identity confirmed: arm band Reason for block: post-op pain management/at surgeon's request Staffing Anesthesiologist: Zeke Prajapati II, DO Performed by: anesthesiologist Preparation Sterility Preparation: hand hygiene performed prior to procedure, surgical cap used, mask used, sterile drape used during line insertion, skin prep agent completely dried prior to procedure Site Prep: Duraprep Pre-Procedure Neuro Exam Location: LLE Sensory: intact Motor: intact Procedure Details Patient Position: supine Monitoring: NIBP, EKG and Pulse OX Block Type Lower Extremity: saphenous Multiple Levels: No Laterality: left Injection Technique: single-shot Ultrasound Guided: Yes Image in Chart: yes Needle Needle Type: stimulating Needle Gauge: 21 G Needle Length: 100 mm Needle Localization: ultrasound Assessment Injection assessment: negative aspiration Paresthesia: none Post-Procedure Neuro Exam Expected Regional Anesthesia: Yes Medications Administered Dexamethasone sodium phosphate injection (DECADRON), 10 mg midazolam (PF) injection (VERSED), 2 mg ropivacaine (PF) 5 mg/mL (0.5 %) injection (NAROPIN), 30 mL SIGNATURE: Zeke Prajapati II, DO PATIENT NAME: Jessenia Srivastavar DATE: December 20, 2020 TIME: 12:02 PM CSN: [id number] Evaluation + Plan note Future Appointments Appointment Date:07/18/2023 08:00:00 AM Scheduled Provider: Location:[facility] Appointment Type:CV Echo (FT) Appointment Date:08/05/2023 01:00:00 PM Scheduled Provider:Eyad ARORA MD Location:[facility] Appointment Type:Cardiology New Patient (FT) Future Scheduled Tests Radiology* Echo w/ Saline Bubbles 07/18/23 [facility] 05-15-2017 History of Past illness Narrative* Problem Noted Date Resolved Date S/P left unicompartmental knee replacement 11/1803/18/2017 documented as of this encounter (statuses as of 02/22/2022) [facility] [place] History of Past illness Narrative* Problem Noted Date Resolved Date S/P left unicompartmental knee replacement 11/1803/18/2017 documented as of this encounter (statuses as of 12/25/2022) [facility] Future Appointments Appointment Date:05/29/2022 09:45:00 AM Scheduled Provider:Jerel Banks DPM [facility] Appointment Type:WC Follow Up Visit (FT) Future Scheduled Tests Radiology* US LE Venous Duplex Insufficiency Bilat [facility]ments Appointment Date:06/10/2022 03:00:00 PM Scheduled Provider: [facility] Type:US Duplex Procedures (FT) Future Scheduled Tests Radiology* US LE Venous Duplex Insufficiency Bilat 06[facility]10/22 [facility] Future Appointments Appointment Date:09/30/2022 10:30:00 AM Scheduled Provider:Rita Dover MD Location[facility] Appointment Type:Vascular [facility] ([facility]) [facility] Future Appointments Appointment Date:10/31/2022 03:30:00 PM Scheduled Provider:Rita Dover MD Location[facility] Clinic Appointment Type:Vascular Follow Up (FT) Appointment Date:11/22/2022 04:20:00 PM Scheduled Provider:ANA CHÁVEZ CNP Location:[facility] Appointment Type:[facility] Evaluation + Plan note Future Appointments Appointment Date:02/05/2023 12:50:00 PM Scheduled Provider: Location:[facility] Appointment Type:Surgery [facility] Evaluation + Plan note Future Appointments Appointment Date:06/05/2023 03:20:00 PM Scheduled Provider:Morena Rousseau CNP Location:[facility] Appointment Type:BADH Follow Up [facility] Evaluation + Plan note Future Appointments Appointment Date:08/05/2023 01:00:00 PM Scheduled Provider:Eyad ARORA MD [facility] ([facility] Diagnosis S/P revision of total knee, left- Primary documented in this encounter [facility] Diagnosis S/P revision of total knee, left- Primary Primary osteoarthritis of right knee Primary localized osteoarthrosis, lower leg [facility] Narrative No data available for this section [facility] Discharge instructions No data available for this section [facility] No data available for this section [facility] ([facility])* Diagnostic Procedure Only (Routine) - Closed Specialty Diagnoses / Procedures Referred By Mandeep sellers Referred To Contact XR IMAGING Diagnoses S/P revision of total knee, left Procedures XR KNEE POST OP 3V AP/LAT/MERCHANT LEFT RADIOLOGIC EXAMINATION KNEE 3 VIEWS Augustus Pereira MD [address] [place] [address] Xr Imaging Referral ID Status Reason Start Date Expiration Date V isits Requested Visits Authorized [id number] Closed Auto-Generate d Referral 02/22/2022 03/24/2023 1 1 [facility] Summary Purpose Family History No Family History Records FoundNo Family History Records Found No data available for this section No data available for this section No data available for this section No data available for this section No Family History Records Found No data available for this section Advance Directives No Advanced Directives Records FoundNo Advanced Directives Records FoundNo Advanced Directives Records Found Reason for Referral Specialty Diagnoses / Procedures Referred By Mandeep t Referred To Contact [facility] Diagnoses Primary osteoarthritis of right knee Procedures CONSULT TO PHYSICAL THERAPY PHYSICAL THERAPY EVALUATION HIGH COMPLEX 45 MINS Marko Cordova PA-C [address] [place] [address] [facility] [place] [address] [place] [address] Referral ID Status Reason Start Date Expiration Date Visits Requested Visits Authorized [id number] Pending Review Auto-Generat ed Referral 12/25/2022 12/25/2023 1 1 Medications Administered Section Inactive Administered Medications - up to 3 most recent administrations Medication Order MAR Action Action Date Dose Rate Site betamethasone acetate-betamethasone sodium phosphate 12 mg injection (CELESTONE) 12 mg, Injection - FOR ORTHO USE ONLY, ONE TIME INJECTION, 1 dose, Starting on Fri12/25/22 at 1107, Until Fri12/25/22 at 1107 Given 12/25/2022 11:07 AM EDT 12 mg Knee, Right lidocaine (PF) 10 mg/mL (1 %) 5 mL injection (XYLOCAINE) 5 mL, Injection - FOR ORTHO USE ONLY, ONE TIME INJECTION, 1 dose, Starting on Fri12/25/22 at 1107, Until Fri12/25/22 at 1107 Given 12/25/2022 11:07 AM EDT 5 mL Knee, Right Additional Source Comments INFORMATION SOURCE (unrecogn ized section and content) DATE CREATED AUTHOR 01/05/2021 [facility] DATE CREATED AUTHOR AUTHOR'S ORGANIZ ATION 12/26/2022 [facility] DATE CREATED AUTHOR AUTHOR'S ORGANIZ ATION 06/28/2023 [facility] Source Comments (unrecognize d section and content) In the event this informatio n is protected by the Federal Confidentiality of Alcohol and Drug Abuse Patient Records regulations: The Federal rules restrict any use of the information to criminally investigate or prosecute any alcohol or drug abuse patient.[facility] the event this information is protected by the Federal Confidentiality of Alcohol and Drug Abuse Patient Records regulations: The Federal rules restrict any use of the information to criminally investigate or prosecute any alcohol or drug abuse patient.[facility] [place] Patient Care team informatio n (unrecognized section and content) Personnel Name: Pb BAUMAN DO Address: Address: [address] [place], [place] [id number] [place] Personnel Name: Pb BAUMAN DO Address: Address: [address] [place], [place] [id number] [place] Personnel Name: Pb BAUMAN DO Address: Address: [address] [place], [place] [id number] [place] Personnel Name: Pb BAUMAN DO Address: Address: [address] [place], [place] [phone] [place] Personnel Name: Pb BAUMAN DO Address: Address: [address] [place] [id number] [place] Personnel Name: Pb BAUMAN DO Address: Address: [address] [place], [place] [phone] [place] Personnel Name: Pb BAUMAN DO Address: Address: [address] [place], [place] [id number] [place] Personnel Name: Pb BAUMAN DO Address: Address: [address] [place] [address]- [place] Personnel Name: Pb BAUMAN DO Address: Address: [address] [place] [address]- [place] Personnel Name: Pb BAUMAN DO Address: Address: [address] [place] [address]- [place] Personnel Name: Pb BAUMAN DO Address: Address: [address] [facility] [place] [place] [address] [place] Personnel Name: Pb BAUMAN DO Address: Address: [address] [place] [address]- Personnel Name: DIANA MOYER Address: Address: [address] [place] [address]- Personnel Name: DIANA MOYER Address: Address: [address] [place] [address] [address] [place] [address]- Reason for Visit (unrecogniz ed section and content) Reason Comments New Knee Pain FOR RECORDS PERTAINING TO PATIENTS WHO ARE OR HAVE BEEN ENROLLED IN A CHEMICAL DEPENDENCY/SUBSTANCEABUSE PROGRAM, SOME INFORMATION MAY BE OMITTED. This clinical summary was aggregated from multiple sources. Caution should be exercised in using it in the provision of clinical care. This summary normalizes information from multiple sources, and as a consequence, information in this document may materially change the coding, format and clinical context of patient data. In addition, data may be omitted in some cases. CLINICAL DECISIONS SHOULD BE BASED ON THE PRIMARY CLINICAL RECORDS. [facility]. provides no warranty or guarantee of the accuracy or completeness of information in this document.
== END 2023-08-04 07:24 | disposition home or self-care (01) ==
LOC: VC 07:34
PROVIDERS: PCP Radiology Diagnostic Radiology; Visit Provider Radiology Diagnostic Radiology
DX: I83.813 Varicose veins of bilateral lower extremities with pain (principal)
CPT/HCPCS: 36478

== ENCOUNTER 2023-08-11 07:25 | Outpatient (OUT) | payer OTHER, BC, SELFPAY ==
--- NOTE | 2023-08-11 07:26 | VEIN_ITS ---
Patient Name: LOREN WING MR#: [id number] : 1970 Exam Date: 08/11/2023 Ordering Doctor: DR WILVER CANO M.D. RADIOLOGY REPORT PROCEDURE: FACILITY EST LMTD VEIN CENTER - OFFICE VISIT FOLLOW UP COMPARISON: None. PROGRESS NOTES: The patient reports no significant problems following intravenous laser ablation of the right small saphenous vein. The patient has worn her compression stockings. The patient did not require oral analgesics. The patient has tried exercise as directed Physical exam demonstrates no erythema warmth or bruising. The insertion incision is closed. No evidence of cellulitis or thrombophlebitis. Again noted is a large healing wound on the patient's right anterior lower leg, known venous stasis ulceration, this appears improved from the prior exam Review of the ultrasound performed the same day demonstrates occlusive thrombus extending throughout the treated right small saphenous vein with heat induced thrombus 2.2 cm from the saphenous popliteal junction. The patient expressed a desire to proceed with treatment of right leg incompetent perforating vein. VEIN/ Facility EST LMTD IMPRESSION: 1. Successful ablation of the right small saphenous vein 2. Persistent incompetent right leg perforating veins with associated venous stasis ulceration. PLAN: Intravenous laser ablation incompetent right leg perforating veins Nurse notes, history and physical were reviewed and confirmed, see attached forms. The nurse was present throughout the physical exam and consultation Dictated by: Wilver Cano MD on 08/11/2023 at 07:55 Approved by: Wilver Cano MD on 08/11/2023 at 07:59
--- NOTE | 2023-08-11 07:26 | VEIN_ITS ---
Patient Name: LOREN WING MR#: [id number] : 1970 Exam Date: 08/11/2023 Ordering Doctor: DR WILVER CANO M.D. RADIOLOGY REPORT PROCEDURE: VC EXT VENOUS RT LMTD COMPARISON: None. INDICATIONS: Phlebitis of superficial veins of right lower extremity I80.01 TECHNIQUE: Lower extremity berry scale and Duplex Doppler evaluation of the deep venous system from the inguinal ligament through the calf veins. FINDINGS: REGION: Right lower extremity. THROMBI: Negative for DVT. Heat induced thrombus in right SSV 2.2 cm from SPJ and extends to mid/distal lower leg. COMPRESSIBILITY: Non-compressible segments corresponding to thrombus FLOW: Absent flow corresponding to thrombus CONCLUSION: Post ablation occlusion of the right small saphenous vein with heat induced thrombus 2.2 cm from the saphenous popliteal junction Dictated by: Wilver Cano MD on 08/11/2023 at 07:54 Approved by: Wilver Cano MD on 08/11/2023 at 07:55
--- OUTSIDE RECORDS SUMMARY | 2023-08-11 07:28 | XMS_ITS | CCD ---
Author Name Unknown Address [address] [place] [address] Organization [facility] Care Team Providers Care [place] [employer] [place] Name Role Phone Pb BAUMAN Primary Care Physician [phone] Unavailable Primary Care Provider Unavailabl e Unavailable Primary Care Provider Unavailabl e MARKO CORDOVA Attending Unavailable MARKO CORDOVA Referring Unavailable PEREIRAAUGUSTUS DALLAS Attending Unavailable AGUUSTUS PEREIRA Referring Unavailable Pb BAUMAN Primary Care Physician DIANA CEJA Primary Care Physician [phone] Keith CHUNG Attending Unavailable ANA CHÁVEZ Attending Unavailable ROLANDO CEJA-C DIANA Grady Attending Unav ailable ANA CHÁVEZ [...] ,dust, mold 1 Allergy to substance hayfever [facility] Comment on above: hayfever (1 source) Seasonal allergy Allergy to substance 3 Itching [facility] (1 source) seasonal ,dust, mold; Translations: [seasonal ,dust, mold] Propensity to adverse reactions (disorder) [facility] (1 source) No Known Medication Allergies; Translations: [No Known Medication Allergies] Propensity to adverse reactions (disorder) [facility] NEGATED: Highlighted row has been ruled out! (1 source) Drug allergy [facility] NEGATED: Highlighted row has been ruled out! (1 source) Drug allergy [facility] NEGATED: Highlighted row has been ruled out! (1 source) Drug allergy [facility] NEGATED: Highlighted row has been ruled out! (1 source) Drug allergy [facility] NEGATED: Highlighted row has been ruled out! (1 source) Drug allergy [facility] NEGATED: Highlighted row has been ruled out! (1 source) Drug allergy [facility] NEGATED: Highlighted row has been ruled out! (1 source) Drug allergy [facility] NEGATED: Highlighted row has been ruled out! (1 source) Drug allergy [facility] NEGATED: Highlighted row has been ruled out! (1 source) Drug allergy [facility] NEGATED: Highlighted row has been ruled out! (1 source) Drug allergy [facility] NEGATED: Highlighted row has been ruled out! (1 source) Drug allergy [facility] Medications Current Medications Medication Drug Class(es) Dates Sig (Normalized) Sig (Original) albuterol HFA 90 mcg/inh MDI (17 sources) Start: 06-27-2023 take 2 puff(s) by inhalation four times daily albuterol HFA 90 mcg/inh MDI 2 puff(s), Inhalation, QID, 1 EA, Refill(s) 2, [facility], 167, cm, 06/27/23 10:33:00 EST, Height/Length Dosing, 111, kg, 06/27/23 10:33:00 EST, Weight Dosing Start Date: 06/27/23 Status: Ordered Start: 05-25-2020 take 2 puff(s) by in halation four times daily albuterol HFA 90 mcg/inh MDI 2 puff(s), Inhalation, QID, 1 EA, Refill(s) 2, [facility], 167, cm, 05/25/20 16:49:00 EST, Height/Length Dosing, 112.5, kg, 05/25/20 16:49:00 EST, Weight Dosing Start Date: 05/25/20 Status: Ordered azithromycin 250 mg oral tablet (1 source) Macrolide Antimicrobial Start: 06-27-2023 End: 07-02-2023 Zithromax Z-Mars 250 mg oral tablet 250 mg = 1 tab(s), Oral, As Directed, as directed on package labeling, X 5 day(s), # 6 tab(s), Refills(s) 0, Pharmacy: [facility] 1985, 167, cm, 06/27/23 10:33:00 EST, Height/Length Dosing, 111, kg, 06/27/23 10:33:00 EST, Weight Dosing Start Date: 06/27/23 Stop Date: 07/02/23 Status: Ordered brompheniramine maleate 0.4 mg/ml / dextromethorphan hydrobromide 2 mg/ml / pseudoephedrine hydrochloride 6 mg/ml oral solution (2 sources) alpha-Adrenergic Agonist, Uncompetitive F-whhyqe-I-aspart ate Receptor Antagonist, Sigma-1 Agonist Start: 06-27-2023 take 2.5 mL by mouth every six hours Bromfed DM oral syrup 2.5 mL, Oral, q6hr for cold symptoms, 120 mL, Refill(s) 1, [facility], 167, cm, 06/27/23 10:33:00 EST, Height/Length Dosing, 111, kg, 06/27/23 10:33:00 EST, Weight Dosing Start Date: 06/27/23 Status: Ordered hydrALAZINE hydrochloride 10 mg oral tablet (1 source) Arteriolar Vasodilator Start: 07-04-2023 hydrALAZINE 10 mg Tab See Instructions, 1 tab PO PRN BP >140/90, # 30 tab(s), Refills(s) 2, Pharmacy: [facility], 167, cm, 06/27/23 10:33:00 EST, Height/Length Dosing, 111, kg, 06/27/23 10:33:00 EST, Weight Dosing Start Date: 07/04/23 Status: Ordered hydroCHLOROthiazide 12.5 mg oral capsule (4 sources) Thiazide Diuretic Start: 06-27-2023 take 1 capsule by mouth once daily hydrochlorothiazide 12.5 mg Cap 12.5 mg = 1 cap(s), Oral, Daily, # 30 cap(s), Refills(s) 6, Pharmacy: [facility], 167, cm, 06/27/23 10:33:00 [...] day(s), # 21 tab(s), Refills(s) 0, Pharmacy: [facility], 167, cm, 06/27/23 10:33:00 EST, Height/Length Dosing, 111, kg, 06/27/23 10:33:00 EST, Weight Dosing Start Date: 06/27/23 Stop Date: 07/03/23 Status: Ordered omeprazole 40 mg delayed release oral capsule (12 sources) Proton Pump Inhibitor Start: take 1 capsule by mouth once daily omeprazole 40 mg Cap-DR 40 mg = 1 cap(s), Oral, Daily, # 30 cap(s), Refills(s) 1, Pharmacy: [facility], 167, cm, 02/05/23 12:12:00 EDT, Height/Length Dosing, 106.5, kg, 02/05/23 12:12:00 EDT, Weight Dosing Start Date: 02/05/23 Status: Ordered Start: 01-20-2023 take 1 capsule by mo uth once daily omeprazole 20 mg Cap-DR 20 mg = 1 cap(s), Oral, Daily, # 90 cap(s), Refills(s) 3, Pharmacy: [facility], 167, cm, 12/18/22 9:30:00 EDT, Height/Length Dosing, 106.5, kg, 12/18/22 9:30:00 EDT, Weight Dosing Start Date: 01/20/23 Status: Ordered Start: 10-25-2022 [facility] daily omeprazole 20 mg Cap-DR 20 mg = 1 cap(s), Oral, Daily, # 30 cap(s), Refills(s) 0, Pharmacy: [facility], 167, cm, 10/25/22 14:36:00 EDT, Height/Length Dosing, 110.1, kg, 10/25/22 14:36:00 EDT, Weight Dosing Start Date: 10/25/22 Status: Ordered polyethylene glycol 3350 235701 mg / potassium chloride 1480 mg / sodium bicarbonate 5720 mg / sodium chloride 97479 mg powder for oral solution (1 source) Osmotic Laxative Start: 12-18-2022 NuLYTELY Ford oral powder for reconstitution See Instructions, 1 EA, Refill(s) 0, See physician instructions prior to procedure., [facility], 167, cm, 12/18/22 9:30:00 [...] day(s), # 28 tab(s), Refills(s) 1, Pharmacy: [facility], 167, cm, 11/06/21 13:58:00 [...] use, # 1 EA, Refills(s) 5, Pharmacy: [facility], 167, cm, 06/27/23 10:33:00 EST, Height/Length Dosing, 111, kg, 06/27/23 10:33:00 EST, Weight Dosing Start Date: 06/27/23 Status: Ordered Start: 10-25-2022 take 232 ug by mouth every twelve hours fluticasone propionate 232 mcg/inh inhalation powder 232 mcg, Inhalation, q12hr, Swallowed rather than inhaled rinse mouth and throat after use, # 1 EA, Refills(s) 5, Pharmacy: [facility], 167, cm, 10/25/22 14:36:00 EDT, Height/Length Dosing, 110.1, kg, 10/25/22 14:36:00 EDT, Weight Dosing Start Date: 10/25/22 Status: Ordered sertraline 50 mg oral tablet (19 sources) Serotonin Reuptake Inhibitor Start: 01-20-2023 Zoloft 50 mg Tab 75 mg = 1.5 tab(s), Oral, Daily, # 135 tab(s), Refills(s) 3, Pharmacy: [facility], 167, cm, 06/27/23 10:33:00 EST, Height/Length Dosing, 111, kg, 06/27/23 10:33:00 EST, Weight Dosing Start Date: 06/27/23 Status: Ordered Start: 01-09-2022 Zoloft 50 mg T ab 75 mg = 1.5 tab(s), Oral, Daily, # 135 tab(s), Refills(s) 2, Pharmacy: [facility], 167, cm, 11/06/21 13:58:00 EDT, Height/Length Dosing, 91.5, kg, 11/06/21 13:58:00 EDT, Weight Dosing Start Date: 01/09/22 Status: Ordered Start: 12-28-2020 Zoloft 50 mg T ab 75 mg = 1.5 tab(s), Oral, Daily, # 135 tab(s), Refills(s) 2, Pharmacy: [facility], 167.6, cm, 12/22/20 12:51:00 [...] and Complexity of Problems Differential Diagnosis: [] [facility] Data External documents reviewed: [] My EKG [...] days 06/29/[address] [facility] (more content not included)... Normal [facility] Comment on above: Result Comment: Elec tronically [...] seem to help much ER followup: [facility] [facility] Visit date: 06/27/23 Symptoms the patient presented [...] day(s), # 6 tab(s), Refills(s) 0, Pharmacy: [facility], 167, cm, 06/27/23 10:33:00 EST, Height/Length Dosing, 111, kg, 06/27/23 10:33:00 EST, Weight Dosing brompheniramine/dext romethorphan/PSE, 2.5 mL, Oral, q6hr for cold symptoms, 120 mL, Refill(s) 1, [facility], 167, cm, 06/27/23 10:33:00 EST, Height/Length Dosing, 111, kg, 06/27/23 10:33:00 EST, Weight Dosing hydrochlorothiazide, 12.5 mg = 1 cap(s), Oral, Daily, # 30 cap(s), Refills(s) 6, Pharmacy: [facility] 1985, 167, cm, 06/27/23 10:33:00 EST, Height/Length Dosing, 111, kg, 06/27/23 10:33:00 EST, Weight Dosing methylPREDNISolone, = 1 packet(s), Oral, As Directed, as directed on package labeling, X 6 day(s), # 21 tab(s), Refills(s) 0, Pharmacy: [facility] 1985, 167, cm, 06/27/23 10:33:00 EST, (more content not included)... [facility] Comment on above: Result Comment: Elec tronically Signed By: DIANA MOYER.br\Date and Time Signed: 06/27/23 12:02 EST Insurance Correspondenceon 1 08-28-2022 Insurance Correspondence [id number] 0#1.00TIFF [facility] Nursing Note - Woundon 06-27 Nursing Note - Wound [id number] 9#2.00TIFF [facility] Patient Educationon 06-27-20 Patient Education Cardiovascular Left [...] safe for you. General instructions ? Take bmgo-hqu-mxftclw and prescription medicines only as told by [...] provider. Document Revised: 10/11/2020 Document Reviewed: 12/21/2019 [employer] Patient Education ? 2022 [employer] ENT Cough, Adult Coughing is a [...] ? Allergies. (more content not included)... Normal [facility] Physician Orderon 06-27-2023 Physician Order [id number] 4#1.00TIFF Normal [facility] Physician Referralon 023 Physician Referral [id number] #1.00TIFF Normal [facility] Progress Note - Woundon 06-07 Progress Note - Wound [id number] 2#1.00TIFF Normal [facility] Auto DiffOrdered By: SYSTEM SYSTEM on 06-26-2023 Basophils/100 WBC (Bld) 0.9 % Normal 0.0-2.0 [facility] Comment on above: Order Comment: Order Added by Discern Expert. Performed By: #### 1 [id number], 8512744, 5677204, 7059453, 40234867, [id number] ####[facility] [address] [place] [address] Basophils/Leukocytes Auto (Bld) [Pure # fraction] 0.0 E9/L Normal 0.0-0.2 [facility] Comment on above: Order Comment: Order Added by Discern Expert. Performed By: #### 1 [id number], 6814293, 4367888, 2283549, 58786153, 27867577 ####[facility] [address] [place] [address] Eosinophils/100 WBC (Bld) 2.7 % Normal 0.0-8.0 [facility] Comment on above: Order Comment: Order Added by Discern Expert. Performed By: #### 1 0144384, 3932096, 8265688, 5919226, 45469921, 67034873 ####[facility] [address] [address] Eosinophils/Leukocyt es Auto (Bld) [Pure # fraction] 0.1 E9/L Normal 0.0-0.5 [facility] Comment on above: Order Comment: Order Added by Discern Expert. Performed By: #### 1 3401947, 2889242, 3948057, 7787238, 10289348, 40237841 ####[address] [address] Lymphocytes/100 WBC (Bld) 20.0 % Normal 14.0-50.0 [facility] Comment on above: Order Comment: Order Added by Discern Expert. Performed By: #### 1 1785494, 3939520, 0384040, 2106335, 50364712, 00162591 ####[address] [address] Lymphocytes/Leukocyt es Auto (Bld) [Pure # fraction] 0.9 E9/L Low 1.0-4.0 [facility] Comment on above: Order Comment: Order Added by Discern Expert. Performed By: #### 1 3712461, 7055458, 6869260, 6281955, 38997288, 40017129 ####[address] [address] Monocytes/100 WBC (Bld) 7.4 % Normal 4.0-14.0 [facility] Comment on above: Order Comment: Order Added by Discern Expert. Performed By: #### 1 9446039, 7447641, 3784790, 2425026, 17302390, 28164869 ####[address] [address] Monocytes/Leukocytes Auto (Bld) [Pure # fraction] 0.3 E9/L Normal 0.2-1.0 [facility] Comment on above: Order Comment: Order Added by Discern Expert. Performed By: #### 1 0322404, 4532413, 4806355, 0253325, 05718992, 04749543 ####[address] [address] Neutrophils/100 WBC (Bld) 69.0 % Normal 36.0-75.0 [facility] Comment on above: Order Comment: Order Added by Discern Expert. Performed By: #### 1 4984967, 5937298, 6983018, 9097279, 47733732, 25502057 ####[place] [place] [address] Neutrophils/Leukocyt es Auto (Bld) [Pure # fraction] 3.2 E9/L Normal 2.0-7.5 [facility] Comment on above: Order Comment: Order Added by Discern Expert. Performed By: #### 1 9005058, 3190523, 8884189, 7096193, 87412280, 42644044 ####[facility] [address] [address] BMPOrdered By: SYSTEM SYSTEM on 06-26-2023 Anion gap [Moles/Vol] 11 mmol/L Normal 6-16 [facility] Comment on above: Performed By: #### 1 0248415, 2470777, 0368105, 8132211, 29681302, 00728810 ####[facility] [address] [address] Calcium [Mass/Vol] 8.6 mg/dL Low 8.9-11.1 Remiso l [facility] Comment on above: Performed By: #### 1 3855180, 6676624, 0803413, 5354331, 45536753, 86888833 ####[address] [place] [address] Chloride [Moles/Vol] 109 mmol/L Normal 101-111 [facility] daniela [facility] Comment on above: Performed By: #### 1 1241660, 0761356, 5550358, 8087767, 86011490, 61832739 ####[address] [place] [address] CO2 [Moles/Vol] 26 mmol/L Normal 21-31 [facility] Comment on above: Performed By: #### 1 2795636, 6649134, 2265650, 9454091, 84438446, 25520478 ####[facility] [address] [place] [address] Creatinine [Mass/Vol] 0.9 mg/dL Normal 0.5-1.3 [facility] Comment on above: Performed By: #### 1 7358796, 6434466, 3777242, 4781401, 93951473, 83539378 ####[facility] [address] [place] [address] Glucose [Mass/Vol] 104 mg/dL Normal 55-199 Remiso l Chem Comment on above: Performed By: #### 1 4883993, 8366951, 3579998, 5403299, 86537295, 15782506 ####[address] [place] [address] Potassium [Moles/Vol] 3.9 mmol/L Normal 3.5-5.3 [facility] Comment on above: Performed By: #### 1 4951004, 1714466, 7297980, 0118565, 87905244, 34986692 ####[facility] [address] [place] [address] Sodium [Moles/Vol] 142 mmol/L Normal 135-145 Remiso l Chem Comment on above: Performed By: #### 1 2086802, 6102285, 4066307, 6646481, 43124393, 76334475 ####[facility] [address] [place] [address] Urea nitrogen [Mass/Vol] 12 mg/dL Normal 5-21 [facility] Comment on above: Performed By: #### 1 2990957, 6929186, 3264588, 3406661, 65895761, 87850086 ####[facility] [address] [place] [address] BMPon 06-26-2023 BUN/Creat Ratio 13 No Units Normal 10-20 [facility] Comment on above: Performed By: #### 1 8866546, 3855990, 2496784, 9857242, 91313383, 00457829 ####[address] [place] [address] CBC w/ Auto DiffOrdered By: Rossy Summers on 06-26-2023 Erythrocyte distribution width (RBC) [Ratio] 16.1 % High 10.9-14.2 [facility] Comment on above: Performed By: #### 1 9932267, 1370899, 2033787, 3940113, 04693460, 74589125 ####[facility] [address] [address] Hematocrit (Bld) [Volume fraction] 35.9 % Normal 34.0-46.0 [facility] Comment on above: Performed By: #### 1 8008078, 4937563, 1774386, 2594793, 69773850, 39436698 ####[facility] [address] [address] Hemoglobin (Bld) [Mass/Vol] 12.0 g/dL Normal 12.0-16.0 [facility] Comment on above: Performed By: #### 1 3079034, 9947538, 2041879, 6088787, 07960048, 38399730 ####[facility] [address] [address] MCH (RBC) [Entitic mass] 27.2 pg Normal 27.0-34.0 [facility] Comment on above: Performed By: #### 1 4689816, 9334032, 0901276, 8317190, 47488795, 33634068 ####[facility] [address] [address] MCHC (RBC) [Mass/Vol] 33.6 g/dL Normal 31.4-36.0 [facility] Comment on above: Performed By: #### 1 9988219, 7656727, 0143551, 8847291, 45018000, 30243527 ####[facility] [address] [address] MCV (RBC) [Entitic vol] 81.0 fL Normal 80.0-100.0 [facility] Comment on above: Performed By: #### 1 1005227, 8424316, 4370690, 9459760, 12766973, 29128783 ####[facility] [address] [place] [address] Platelet mean volume (Bld) [Entitic vol] 7.9 fL Normal 6.4-10.8 [facility] Comment on above: Performed By: #### 1 3028502, 7781103, 4114102, 3209950, 20639636, 49338493 ####[facility] [address] [place] [address] Platelets (Bld) [#/Vol] 138.0 E9/L Low 150.0-500.0 [facility] Comment on above: Performed By: #### 1 4902893, 1733126, 2413750, 2982542, 36880958, 23450098 ####[place] [address] RBC (Bld) [#/Vol] 4.4 E12/L Normal 4.3-5.9 [facility] Comment on above: Performed By: #### 1 5685828, 2977367, 0939893, 1381844, 42811808, 17323196 ####[facility] [address] [address] WBC corrected for nucl RBC Auto (Bld) [#/Vol] 4.6 E9/L Normal 4.0-11.0 [facility] Comment on above: Performed By: #### 1 2787638, 4982355, 9891994, 9423854, 85172903, 96130349 ####[facility] [address] [address] CHEMISTRYOrdered By: SYSTEM SYSTEM on 06-26-2023 eGFR mL/min/1.73 m2 Normal >=59mL/min/1.73 m2 Re misol Chem Urea nitrogen/Creatinine [Mass ratio] 13 mg/mg Normal 10 - 20 [facility] Chem COAGULATIONOrdered By: Franko Saldana on 06-26-2023 aPTT Coag (PPP) [Time] 31.8 s Normal 25.1 - 36.5 second(s) [facility] Auto Coag Comment on above: Interpretive Data: [...] the same coagulation reagent and instrumentation as [facility]. Currently there are no coagulation studies available worldwide for children to 14 days, and no normal ranges. Heparin therapeutic range (represented by Anti-Factor Xa activity of 0.2 - 0.4 U/mL) corresponds to PTT of 56.6 - 109.0 sec. PT Coag (PPP) [Time] 10.7 s Normal 9.4 - 1 2.5 second(s) [facility] Comment on above: Interpretive Data: [...] the same coagulation reagent and instrumentation as [facility]. Currently there are no coagulation studies available [...] MD, V. Transcribed by: ANDRAE Technologist: ROSALINA [facility] Consent for Procedure/Surger yon 06-26-2023 Consent for Procedure/Surgery [id number] 1#1.00TIFF [facility] Consent for Treatmenton 06-07 Consent for Treatment [id number] #1.00TIFF [facility] Consent for Treatment [id number] #1.00TIFF [facility] Consent to Photographon 06-07 Consent to Photograph [id number] 6#1.00TIFF [facility] Correspondence - [place] Correspondence - Wound [id number] 3#1.00TIFF Normal [facility] Correspondence - Wound [id number] 1#1.00TIFF Normal [facility] Discharge Instructionson Discharge Instructions [id number] 9#1.00TIFF Normal [facility] ED Clinical Summaryon 2022 ED Clinical Summary [place] [id number] ED Clinical Summary Person Information Name: MECCAJESSENIA/[place] Age: 52 Years : 1970 Sex: Female Language: Cape Verdean PCP: Pb BAUMAN DO Marital Status: Visit Id: Visit Reason: Hypertension; Headache; HIGH BLOOD PRESSURE - SENT BY [facility] Speciality: Acuity: 3 Enc Type: Emergency [...] 06/26/2023 20:53:28 06/26/2023 20:53:28 06/26/2023 20:53:28 ADDRESS: [id number] [facility] [id number] PHYS DOC NOTES: MEDICAL INFORMATION: Prescriptions Given: [...] Follow up: With: Address: When: Pb BAUMAN [address] [facility] [place] [address] [phone] Business (1) In 3 days 06/29/2023 Comments: Follow-up with your primary care provider in 3 to 5 days. If symptoms worsen, do not improve, or new symptoms arise please report back to emergency department for further evaluation. Continue to monitor your blood pressure, and you may start 20 mg of lisinopril daily. DIAGNOSIS: Head ache; Hypertension Normal [facility] ED Patient Education Noteon 06-26-2023 ED Patient [...] blood pr (more content not included)... Normal [facility] ED Patient Summaryon 023 ED Patient Summary [address] [address] Patient Discharge Instructions Person Information Name: JESSENIA WING Age: 52 Years Arrival Date: 06/26/2023 18:31:10 Discharge Diagnosis: Head ache; Hypertension Primary Care Physician: Pb BAUMAN DO Provider Information Primary Provider: Everardo Perera DO Advanced Test Fixture Assembler:None The exam and treatment you received in the Emergency Department were for an urgent problem and are not intended as complete care. It is important that you follow up with a doctor, nurse practitioner, or physician?s press operator assistant for ongoing care. If your symptoms [...] Instructions: With: Address: When: Pb BAUMAN [address] [facility] [place] [address] [phone] Business (1) In 3 days 06/29/2023 Comments: [...] opioids can be used to help relieve hebhnbkd-ie-okoqgk pain and are often prescribed following a [...] Drug Administration (more content not included)... Normal [facility] Multi-Wound Charton 06-26-20 Multi-Wound Chart [id number] 4#1.00TIFF Normal [facility] Nursing Assessment - Woundon 06-26-2023 Nursing Assessment - Wound [id number] 9#2.00TIFF Normal [facility] Nursing Assessment - Wound [id number] 8#1.00TIFF Normal [facility] PT & PTTon 06-26-2023 aPTT Coag (PPP) [Time] 31.8 second(s) Normal 25.1-36.5 [facility] Comment on above: Result Comment: Para meter [...] the same coagulation reagent and instrumentation as [facility]. Currently there are no coagulation studies available worldwide for children to 14 days, and no normal ranges. Heparin therapeutic range (represented by Anti-Factor Xa activity of 0.2 - 0.4 U/mL) corresponds to PTT of 56.6 - 109.0 sec. Performed By: #### 1 6297625, 2743711, 9485331, 9443420, 10981844, 16750324 ####[facility] [address] [place] [address] PT Coag (PPP) [Time] 10.7 second(s) Normal 9.4-12.5 [facility] Comment on above: Result Comment: 15 d [...] the same coagulation reagent and instrumentation as [facility]. Currently there are no coagulation studies available worldwide for children to 14 days, and no normal ranges. Performed By: #### 1 4621778, 7979665, 2989064, 9233170, 37139136, 73024988 ####[facility] [id number] [place] [address] PT & PTTOrdered By: Franko jenkins on 06-26-2023 INR Coag (PPP) [Relative time] 1.0 {INR} Invalid Interpretation Code [facility] [place] Comment on above: Interpretive Data: [...] 3.0 ? 4.5 Performed By: #### 1 [id number], [id number], [id number], [id number], [id number] ####[facility] [id number] [place] [address] Troponin 0 Hr.Ordered By: [employer] on 06-26-2023 Troponin 2.50 pg/mL Low 10.10-27.10 Remisol Chem Comment on above: Interpretive Data: T he 95% CI (Confidence Interval) PPV (Positive Predictive Value) for myocardial infarction in females is 38 pg/mL, in males 51 pg/mL. The results should be used in conjunction with clinical conditions of myocardial infarction. (Access High Sensitivity Troponin I Instructions For Use, [employer], February 2018) Result Comment: The 95% CI (Confidence Interval) PPV (Positive Predictive Value) for myocardial infarction in females is 38 pg/mL, in males 51 pg/mL. The results should be used in conjunction with clinical conditions of myocardial infarction. (Tus reQRdos High Sensitivity Troponin I Instructions For Use, [employer], February 2018) Performed By: #### 1 [id number], [id number], [id number], [id number], [id number], [id number] ####[facility] [address] [place] [address] XR Chest Single Viewon 06-26 XR Chest [...] mGy = na DAP = na Normal [facility] eGFRon 06-26-2023 GFR/1.73 sq M.predicted among non-blacks MDRD (S/P/Bld) [Vol rate/Area] mL/min/{1.73_m2} Normal >=59 [facility] Comment on above: Order Comment: Order added by Discern Expert. Performed By: #### 1 [id number], [id number], [id number], [id number], [id number] ####[facility] [address] [place] [address] Reminderson 03-12-2023 Reminders - From: Morena Rousseau CNP To: Miya Tenorio; Sent: 03/05/2023 15:23:19 EDT Show up: 03/05/2023 15:24:00 EDT Subject: Ambulatory Reminder Reminder/Recall Colonoscopy in 2032. 02/05/2033 10 year colon recall Normal [facility] Gastroenterology Office/Clin ic Noteon 03-05-2023 Gastroenterology Office/Clinic [...] propionate (more content not included)... Normal [facility] Comment on above: Result Comment: Elec tronically [...] getting enough exercise. ? Smoking. ? Taking aipw-icu-wnyydej pain medicines, like aspirin and ibuprofen. ? [...] these instructions at home: Medicines ? Take qhco-azb-rwwfjaf and prescription medicines only as told by your health care provider. ? If told by your health care provider, take a fiber supplement or probiotic. Constipation prevention Your condition may cause constipation. To prevent or treat constipation, you may need to: ? Drink enough fluid to keep your urine pale yellow. ? Take mbtq-hoa-tligdny or prescription medicines. ? Eat foods that [...] provider. Document Revised: 01/20/2020 Document Reviewed: 01/20/2020 [employer] Patient Education ? 2022 [employer]. Peptic Ulcer A peptic ulcer is a [...] hospitalized in a (more content not included)... [facility] Reminderson 02-18-2023 Reminders - From: Harvye Charles To: [facility] - Reminders/Recalls; Sent: 02/18/2023 15:57:52 EDT Show up: 01/04/2033 15:57:00 EDT Subject: Ambulatory Reminder Due Date/Time: 02/05/2033 15:57:00 EDT Reminder/Recall Repeat colonoscopy in 10 years(2032) [facility] Postoperative Documentson Postoperative Documents [id number] 1#1.00CD:127 [facility] IntraOperative Documentson 0 02-10-2023 IntraOperative Documents [id number] 3#1.00CD:127 [facility] Consenton 02-06-2023 Consent [id number] 9#1.00CD:127 Normal [facility] Discharge Instructionson Discharge Instructions [id number] 9#1.00CD:127 Normal [facility] Main OR Intraoperative Recor don 02-06-2023 Main OR Intraoperative Record IntraOp Document Type FT Summary Primary Physician: Keith CHUNG MD Finalized Date/Time: 02/06/23 09:01:34 Pt. Name: MECCA, JESSENIA /Sex: 1970 Female Med Rec #: [id number] Physician: Keith CHUNG MD Financial #: [id number] Pt. Type: O Room/Bed: Endo OP 02/04 [...] Attendee Costa RYDER, Zeke Acuna, Romana Mello WAREHOUSE AND RECEIVING SUPERVISOR, Monica Tovar Role Performed TECHNICAL SALES CONSULTANT Staff - Other Scrub - Primary Time [...] Kaleigh Cuellar Role Performed Surgeon - Primary Door Fitter - Primary Time In 02/05/23 13:06:00 02/05/23 [...] and tissue Entry 1 Skin Integrity Intact, Burnett, Warm, and Skin Abnormality No Dry Outcomes Met? Yes Last Modified By: Kaleigh Menendez RN 02/05/23 13:10:51 Post-Care Text: The patient is free from signs and symptoms of injury caused by extraneous objects Patient Positioning FT Pre-Care Text: Identifies physical alterations that require additional precautions for procedure-specific positioning, verifies (more content not included)... Normal [facility] Consent for Treatmenton Consent for Treatment [id number] #1.00CD:127 Normal [facility] Discharge Instructionson Discharge Instructions JESSENIA WING :1970 [...] 24 hours Discharge Diet(s) Regular Pharmacy Information [facility] Discharge Instructions Discharge Instructions New Follow Up Appointments after Discharge Follow Up with OMAR CROCKER, LAINEY Parker, [facility] When: Comments: Call for any problems. Office will call to schedule follow up appointment Where: [address] [place] [address] [address] [place] [address] Medications What How Much When Instructions Next Dose Changed omeprazole (omeprazole 20 mg Cap-DR) 1 Capsules By Mouth Every day Changed omeprazole (omeprazole 40 mg Cap-DR) 1 Capsules By Mouth Every day Pickup at [facility] Unchanged albuterol (albuterol HFA [...] Tablets By Mouth Every day Pharmacy Information [facility] [address] [facility] [address] [place], [place] [id number] [phone] Test Results No qualifying data available. Allergies [...] activities are safe for you. ? Take ccge-avk-tsrffmg and prescription medicines only as told by [...] you f (more content not included)... Normal [facility] Comment on above: Result Comment: Elec tronically [...] Return to activities:: After 24 hours. Normal [facility] Comment on above: Result Comment: Elec tronically Signed By: Keith CHUNG MD\.br\Date and Time Signed: 02/05/23 13:31 EDT Other Comment: Analia monique Attachment - attachment storage system not supported [id number] Can be viewed in source systemMissing Attachment - attachment storage system not supported [id number] Can be viewed in source systemMissing Attachment - attachment storage system not supported [id number] Can be viewed in source system Endoscopic [...] Distal esophageal Schatzki ring, dilated using 60 Tamazight Mckoy dilator 2. Mild gastric erosions, biopsied to rule out H. pylori 3. Normal duodenal mucosa Images Procedure images: Rec1_hd_video_2022_0 _T1__13_111.ewa g Rec1_hd_video_2022_0 8_T1__36_918.ewa g Rec1_hd_video_ 8_T1_19_35_722.ewa g . Post-Procedure Complications: none. Estimated blood loss: none. Specimens: sent to pathology. Devices/ implants: none left in place. Impression and Plan 1. Distal esophageal Schatzki ring, dilated using 60 Tamazight Mckoy dilator 2. Mild gastric erosions, biopsied to rule out H. pylori Recommendations: Follow-up in GI clinic in 2 weeks Omeprazole 40 mg p.o. daily Normal [facility] Comment on above: Result Comment: Elec tronically Signed By: Keith CHUNG MD\.br\Date and Time Signed: 02/05/23 13:30 EDT Other Comment: Analia monique Attachment - attachment storage system not supported [id number] Can be viewed in source systemMissing Attachment - attachment storage system not supported 1343676 Can be viewed in source systemMissing Attachment - attachment storage system not supported [id number] Can be viewed in source system Main OR PACU I Recordon Main OR PACU I Record PACU Phase I Document Type FT Summary Primary Physician: Keith CHUNG MD Finalized Date/Time: 02/05/23 14:25:47 Pt. Name: MECCAJESSENIA/Sex: 1970 Female Med Rec #: [id number] Physician: Keith CHUNG MD Financial #: [id number] Pt. Type: O Room/Bed: Endo OP 02/04 [...] By: Marcie Ramos RN 02/05/23 14:25 Normal [facility] Main OR Preoperative Recordo n 02-05-2023 Main OR Preoperative Record Holding Area Document Type FT Summary Primary Physician: Keith CHUNG MD Finalized Date/Time: 02/05/23 12:11:06 Pt. Name: MECCAJESSENIA/Sex: 1970 Female Med Rec #: [id number] Physician: Keith CHUNG MD Financial #: [id number] Pt. Type: O Room/Bed: Endo OP 02/04 [...] By: Cristiane Corey RN 02/05/23 12:11 Normal [facility] Monitor Recordon 02-05-2023 Monitor Record [id number] 4#1.00CD:127 Normal [facility] Patient Education - Texton 0 02-05-2023 Patient [...] unsweetened, w/added ascorbic acid 1 cup 0.5 [place] 1 cup 0.7 Vegetables Cooked Green beans 1 cup 4.0 Carrots 1/2 cup sliced 2.3 Peas 1 cup 8.8 Potato (baked, with skin) 1 medium potato 3.8 Raw [place] (with peel) 1 cucumber 1.5 Lettuce 1 [...] IMMEDIATE MEDIC (more content not included)... Normal [facility] Progress Note-Physicianon Progress Note-Physician Patient: JESSENIA WING [...] Daily, # 135 tab(s), Refills(s) 3, Pharmacy: [facility], 167, cm, 12/18/22 9:30:00 EDT, Height/Length Dosing, 106.5, kg, 12/18/22 9:30:00 EDT, Weight Dosing albuterol HFA 90 mcg/inh MDI: 2 puff(s), Inhalation, QID, 1 EA, Refill(s) 2, [facility], 167, cm, 05/25/20 16:49:00 EST, Height/Length Dosing, 112.5, kg, 05/25/20 16:49:00 EST, Weight Dosing fluticasone propionate 232 mcg/inh inhalation powder: 232 mcg, Inhalation, q12hr, Swallowed rather than inhaled rinse mouth and throat after use, # 1 EA, Refills(s) 5, Pharmacy: [place] [address], 167, cm, 10/25/22 14:36:00 EDT, Height/Length Dosing, 110.1, kg, 10/25/22 14:36:00 EDT, Weight Dosing... lisinopril 10 mg Tab: 10 mg = 1 tab(s), Oral, Daily, # 90 tab(s), Refills(s) 1, Pharmacy: [place] [address], 167, cm, 05/16/22 14:29:00 EST, Height/Length Dosing, 100.9, kg, 05/16/22 14:29:00 EST, Weight Dosing omeprazole 20 mg Cap-DR: 20 mg = 1 cap(s), Oral, Daily, # 90 cap(s), Refills(s) 3, Pharmacy: [facility], 167, cm, 12/18/22 9:30:00 EDT, Height/Length Dosing, 106.5, kg, 12/18/22 9:30:00 EDT, Weight Dosing omeprazole 40 mg Cap-DR: 40 mg = 1 cap(s), Oral, Daily, # 30 cap(s), Refills(s) 1, Pharmacy: [facility] 1985, 167, cm, 02/05/23 12:12:00 [...] All Problems Allergic rhinitis / SNOMED CT 215540496 / Confirmed Anemia / SNOMED CT 715717978 / Confirmed Anxiety / SNOMED CT 37734864 / Confirmed Breast cancer screening / SNOMED CT 056656895 / Confirmed Colon cancer screening / SNOMED CT 061203880 / Confirmed Dysphagia / SNOMED CT 34930919 / Confirmed Heartburn / SNOMED CT 27045255 / Confirmed History of left knee replacement / SNOMED CT 5176293074 / Confirmed HTN (hypertension) / SNOMED CT 1630421820 / Confirmed Medial meniscus tear / SNOMED CT 759702068 / Confirmed left Non-smoker / SNOMED CT 96037282 / Confirmed Normocytic anemia / SNOMED CT 926386978 / Confirmed Osteoarthritis / SNOMED CT 3467742138 / Confirmed left knee Tenderness of lymph node / SNOMED CT 116473215 / Confirmed Venous insufficiency / SNOMED CT 088102266 / Confirmed Resolved: BACTERIAL PNEUMONIA, UNSPECIFIED / ICD-9-CM 482.9 Resolved: Hypertension / SNOMED CT 1185706183 Resolved: Microcytosis / SNOMED CT 985881435 Resolved: None / SNOMED CT 936015673 Resolved: Screening for cardiovascular condition / SNOMED CT 778343774 Resolved: Ventral hernia / SNOMED CT 5651225914 Canceled: Blood pressure elevated without history of HTN / SNOMED CT 5496196736 Canceled: Bronchitis with wheezing / SNOMED CT 3413177287 Canceled: Obesity (BMI 30-39.9) / SNOMED CT 039961558 Physical Examination Vital Signs 02/05/2023 13:25 EDT [...] 118 mmH (more content not included)... Normal [facility] Comment on above: Result Comment: Elec tronically [...] Daily, # 135 tab(s), Refills(s) 3, Pharmacy: [facility], 167, cm, 12/18/22 9:30:00 EDT, Height/Length Dosing, 106.5, kg, 12/18/22 9:30:00 EDT, Weight Dosing albuterol HFA 90 mcg/inh MDI: 2 puff(s), Inhalation, QID, 1 EA, Refill(s) 2, [facility], 167, cm, 05/25/20 16:49:00 EST, Height/Length Dosing, 112.5, kg, 05/25/20 16:49:00 EST, Weight Dosing fluticasone propionate 232 mcg/inh inhalation powder: 232 mcg, Inhalation, q12hr, Swallowed rather than inhaled rinse mouth and throat after use, # 1 EA, Refills(s) 5, Pharmacy: [facility], 167, cm, 10/25/22 14:36:00 EDT, Height/Length Dosing, 110.1, kg, 10/25/22 14:36:00 EDT, Weight Dosing... lisinopril 10 mg Tab: 10 mg = 1 tab(s), Oral, Daily, # 90 tab(s), Refills(s) 1, Pharmacy: [facility], 167, cm, 05/16/22 14:29:00 EST, Height/Length Dosing, 100.9, kg, 05/16/22 14:29:00 EST, Weight Dosing omeprazole 20 mg Cap-DR: 20 mg = 1 cap(s), Oral, Daily, # 90 cap(s), Refills(s) 3, Pharmacy: [facility], 167, cm, 12/18/22 9:30:00 EDT, Height/Length Dosing, [...] All Problems Allergic rhinitis / SNOMED CT 745719108 / Confirmed Anemia / SNOMED CT 042977565 / Confirmed Anxiety / SNOMED CT 99788501 / Confirmed Breast cancer screening / SNOMED CT 790207238 / Confirmed Colon cancer screening / SNOMED CT 564816852 / Confirmed Dysphagia / SNOMED CT 15185214 / Confirmed Heartburn / SNOMED CT 40595337 / Confirmed History of left knee replacement / SNOMED CT 0541794531 / Confirmed HTN (hypertension) / SNOMED CT 6616012789 / Confirmed Medial meniscus tear / SNOMED CT 478212036 / Confirmed left Non-smoker / SNOMED CT 24067967 / Confirmed Normocytic anemia / SNOMED CT 908127243 / Confirmed Osteoarthritis / SNOMED CT 8744263753 / Confirmed left knee Tenderness of lymph node / SNOMED CT 256481064 / Confirmed Venous insufficiency / SNOMED CT 474769878 / Confirmed Resolved: BACTERIAL PNEUMONIA, UNSPECIFIED / ICD-9-CM 482.9 Resolved: Hypertension / SNOMED CT 6287295311 Resolved: Microcytosis / SNOMED CT 928594542 Resolved: None / SNOMED CT 341143630 Resolved: Screening for cardiovascular condition / SNOMED CT 790107115 Resolved: Ventral hernia / SNOMED CT 8117453763 Canceled: Blood pressure elevated without history of HTN / SNOMED CT 1539403175 Canceled: Bronchitis with wheezing / SNOMED CT 3908059026 Canceled: Obesity (BMI 30-39.9) / SNOMED CT 227434470, Active Problems (15) Allergic rhinitis Anemia Anxiety Breast cancer screening Colon cancer screening Dysphagia Heartburn History of left knee replacement HTN (hypertension) Medial meniscus tear Non-smoker Normocytic anemia Osteoarthritis Tenderness of lymph node Venous insufficiency Histories Past Medical History: Resolved None (376889389): Resolved. Ventral hernia (1386252364): Resolved. BACTERIAL PNEUMONIA, UNSPECIFIED (482.9): Resolved. Screening for cardiovascular condition (688484549): Resolved. Hypertension (5360301955): Resolved. Microcytosis (120932465): Resolved. Family History: Depression Child Depression Mother () Bipolar Sister Schizophrenia Brother Procedure history: Sclerotherapy ([id number]) on 09/02/2022 at 51 Years. Revision ([id number]) on 12/20/2020 at 50 Years. Comments: 12/22/2020 13:37 EDT - Marcelina Powell left knee arthroplasty Sclerotherapy ([id number]) on 10/05/2020 at 49 Years. left TKR on 11/18/2016 at 45 Years. knee arthr (more content not included)... Normal [facility] Comment on above: Result Comment: Elec tronically Signed By: Munir Adams DO.br\Date and Time Signed: 02/05/23 12:26 EDT CNOVon 12-25-2022 CNOV Office Visit (ORTHCO) JESSENIA WING ([id number]) 1970 F Date Time Provider Department 12/25/22 [...] knee joint Informed Consent Consent Obtained: Verbal [place] Protocol A moment to CARE was completed. [...] recreational acti (more content not included)... Normal [facility] XR KNEE 4V AP/PA BOTH+LAT/ME R [...] Severe medial compartment joint space narrowing with muvo-hd-jaeu contact. Small joint effusion. Venous varicosities are noted in the soft tissues. Left total knee arthroplasty is present. IMPRESSION: Advanced medial compartment predominant osteoarthritis of the right knee. Telephone Coin Box Collector: PSCB Transcribe Date/Time: Dec 25 2022 11:24A Dictated by : KATERINE BOWSER MD This examination was interpreted and the report reviewed and electronically signed by: KATERINE BOWSER MD on Dec 25 2022 11:24AM EST [id number] Normal [facility] Consent for Procedure/Surger yon 12-19-2022 Consent for Procedure/Surgery [id number] 9#1.00CD:127 Normal [facility] Gastroenterology Office/Clin ic Noteon 12-19-2022 Gastroenterology Office/Clinic [...] with voice recognition artificial intelligence software, specifically [employer], [email or web address] and or [employer]. Substitutions may have occurred due to the inherent limitations of voice recognition and artificial intelligence software. ATTESTATION: Documentation services were performed after patient or guardian consented to allow [employer] to record this visit. STEFFI learning disabilities specialist and provider reviewed before signing. STEFFI: [...] Revision ( (more content not included)... Normal [facility] Comment on above: Result Comment: Elec tronically [...] Screening for cardiovascular condition Ventral hernia Normal [facility] Consent for Treatmenton 12-05 Consent for Treatment [id number] #1.00CD:127 Normal [facility] Family Medicine Office/Clini c Noteon 12-16-2022 Family [...] left lower leg) Patient seen in the [facility] care. Following exam discussed exam is concerning [...] With When Contact Information Pb BAUMAN DO, [facility] [address] [place] [address]- Additional Instructions: Patient Education BMI for Adults Edema, Qbvl-dy-Lxgg Musculoskeletal Pain Problem List/Past Medical History Ongoing Allergic rhinitis Anemia Breast cancer screening Dysphagia History of left knee replacement Non-smoker Normocytic anemia Tenderness of lymph node Venous insufficiency Historical BACTERIAL PNEUMONIA, UNSPECIFIED Hypertension Microcytosis None Screening for cardiovascular condition Ventral hernia Procedure/Surgical History Sclerotherapy (09/02/2022), Revision (12/20/2020), Scl (more content not included)... Normal [facility] Comment on above: Result Comment: Elec tronically [...] numbers. This can be done either in [place] ([place] or metric measurements. Note that charts and online BMI calculators are available to help you find your BMI quickly and easily without having to do these calculations yourself. To calculate your BMI in [place] ([place] measurements: 1. Measure your weight in [...] for Disease Control and Prevention: www.cdc.gov ? [place] Heart Association: www.heart.org ? National Heart, Lung, and Blood [place]: www.nhlbi.nih.gov Summary ? Body mass index (BMI) is a number that is calculated from a person's weight and height. ? BMI may help estimate how much of a person's weight is composed of fat. BMI can help identify those who may be at higher risk for certain medical problems. ? BMI can be measured using [place] measurements or metric measurements. ? BMI charts are used to identify whether you are underweight, normal weight, overweight, or obese. This information is not intended to replace advice given to you by your health care provider. Make sure you discuss any questions you have with your health care provider. Document Revised: 03/15/2020 Document Reviewed: 01/21/2020 [employer] Patient Education ? 2022 [employer]. Obstetrics and Gynecology Edema Edema is when [...] or shiny. (more content not included)... Normal [facility] US LE Venous Duplex Lefton 0 12-16-2022 [...] M.D. Transcribed by: ANDRAE Technologist: MYLA Connell [facility] Family Medicine Office/Clini c Noteon 11-29-2022 Family [...] With When Contact Information ANA CHÁVEZ CNP [address] [place] [address] Additional Instructions: Patient Education Dysphagia Exercising to [...] Recorded SARS (more content not included)... Normal [facility] Comment on above: Result Comment: Elec tronically [...] these instructions at home: Medicines ? Take autl-kor-qwvihrq and prescription medicines only as told by your health care provider. ? If you were prescribed an antibiotic medicine, take it as told by your health care provider. Do not stop taking the antibiotic even if you start to feel better. Eating and drinking ? Make any diet changes as told by your health care provider. ? Work with a diet and resume specialist (dietitian) to create an eating plan that [...] person's throa (more content not included)... Normal [facility] Ambulatory Visit Summaryon 0 11-22-2022 Ambulatory Visit [...] AM EDT With: Keith CHUNG MD Where: [facility] Normal [facility] Ambulatory Visit Summaryon 0 11-03-2022 Ambulatory Visit [...] PM EDT With: ANA CHÁVEZ CNP Where: [facility] [place] Normal [address] Medical [address] [address]- \.br\ You Need to Schedule the Following Appointments\.br\ Follow Up with Pb BAUMAN DO, FAM When: \.br\ Where:\.br\ [address]\.br\ [place] [address]-\.br\ \.br\ Medications\.br\ What How Much When Why Instructions\.br\ New albuterol (Albuterol (Eqv-ProAir HFA) 90 mcg/ inh inhalation aerosol) 2 Puffs Inhalation Every 4 hours as needed for Shortness of breath or wheezing Acute viral bronchitis Duration: 21 Days Pickup at [facility] 1985\.br\ New benzonatate (benzonatate 100 mg Cap) 1 Capsules By Mouth 3 times a day as needed for Cough Acute viral bronchitis Duration: 10 Days Pickup at [facility] 1985\.br\ New methylPREDNISolone (Medrol 4 mg Tab) 1 Packets By Mouth As Directed Acute viral bronchitis Duration: 6 Days as directed on package labeling Pickup at [facility] 1985\.br\ Unchanged albuterol (albuterol HFA 90 mcg/ [...] if questions or concerns \.br\ Pharmacy Information\.br\ [facility]: [address] [place], [place] [id number] [phone]\.br\ Allergies\.br\ No Known Medication Allergies\.br\ seasonal ,dust, [...] instructions at home:\.br\ \.br\ ? \.br\ Take qyhk-qsf-ikphzpk and prescription medicines only as told by [...] and water are not available, use hand turf keeper.\.br\ ? \.br\ Avoid contact with people who [...] have a fever.\.br\ Get help susan [facility] Family Medicine Office/Clini c Noteon 11-03-2022 Family [...] for 21 day(s), 6.7 gm, Refill(s) 0, [facility], 167, cm, 11/03/22 12:20:00 EDT, Height/Length Dosing, 108.1, kg, 11/03/22 12:20:00 EDT, Weight Dosing benzonatate, 100 mg = 1 cap(s), Oral, TID, PRN Cough, X 10 day(s), # 30 cap(s), Refills(s) 0, Pharmacy: [facility], 167, cm, 11/03/22 12:20:00 EDT, Height/Length Dosing, 108.1, kg, 11/03/22 12:20:00 EDT, Weight Dosing methylPREDNISolone, = 1 packet(s), Oral, As Directed, as directed on package labeling, X 6 day(s), # 21 tab(s), Refills(s) 0, Pharmacy: [facility], 167, cm, 11/03/22 12:20:00 [...] When Contact Information Pb BAUMAN DO, DEJUAN [address] [place] [address]- Additional Instructions: Patient Education Acute [...] Al (more content not included)... Normal [facility] Comment on above: Result Comment: Elec tronically [...] numbers. This can be done either in [place] ([place] or metric measurements. Note that charts and online BMI calculators are available to help you find your BMI quickly and easily without having to do these calculations yourself. To calculate your BMI in [place] ([place] measurements: 1. Measure your weight in [...] for Disease Control and Prevention: www.cdc.gov ? [place] [employer]: www.heart.org ? National Heart, Lung, and Blood [place]: www.nhlbi.nih.gov Summary ? Body mass index (BMI) is a number that is calculated from a person's weight and height. ? BMI may help estimate how much of a person's weight is composed of fat. BMI can help identify those who may be at higher risk for certain medical problems. ? BMI can be measured using [place] measurements or metric measurements. ? BMI charts are used to identify whether you are underweight, normal weight, overweight, or obese. This information is not intended to replace advice given to you by your health care provider. Make sure you discuss any questions you have with your health care provider. Document Revised: 03/15/2020 Document Reviewed: 01/21/2020 [employer] Patient Education ? 2022 [employer]. Pulmonary Medicine Acute Bronchitis, Adult Acute bronchitis [...] condition is (more content not included)... Normal [facility] Family Medicine Office/Clini c Noteon 10-28-2022 Family [...] to discuss effectiveness of treatment plan. [place] [facility] [place] 2. BMI 39.0-39.9,adult (Z68.39: Body mass index [BMI] 39.0-39.9, adult) Education attached on health risks of obesity and discusses healthy, balanced diet low in sugar, fat, carbs and exercise regimen ATTESTATION: Documentation services were performed after patient or guardian consented to allow Kia Jean to record this visit. STEFFI learning disabilities specialist and provider reviewed before signing. STEFFI: [...] HFA 90 (more content not included)... Normal [facility] Comment on above: Result Comment: Elec tronically [...] fruits, and frozen vegetables. ? Avoid buying vrusi-aa-ons foods, such as pre-cut fruits and vegetables [...] Tips for buyi (more content not included)... [facility] Ambulatory Visit Summaryon 0 10-25-2022 Ambulatory Visit [...] PM EDT With: ANA CHÁVEZ CNP Where: [facility] Family Medicine [facility] Coding Summary.on 09-03-2022 Coding Summary. CD:[id number] Gh0bWw+PGhlYWQ+PE1FV HFnD44jvOKxpE8UX8xRA K4JGCINYOFVQC4EIO3va FV3YApqD4WsydLj UthdcSNcAI15DNh3EJV3 uKbyPThntN0vrKYuV9r0 BuWaMW28jQ90PQmdBVMs VpP5QzCspevjyEKx P2dmNmOmkMJcTjy+PHRh YmxlIHdpZHRoPScxMDAl NbEfqCwvYL9pGx3wETVh LWNvbGxhcHNlOiBj b7geMOXnRJurHD2uuNwi J7UykUQ9FLTmw4d2Qf56 dHI+PTBvRJZ8kTkdBRao c495OpIdg0giNFT0 fYRdHAxuBGN8H21xe2P3 IEHbOVNzBQR1dMD2rV9f nRmcmvtkL0AgmVRdUoH6 GDD5tTPxiE0fwMmd qxrfoM7oOfh+Y29SWA0B LSJYIQ6EUcq6Y7OgOjbu dHI+XZ08WEMcMB97oBBe nRPro6mseWl9VnVh LIUuBHP3xFxkHCdhg0Ss RKXwN20egJXyg3S4JUWb yJedkQBlOtTvqDW4iS9o WShnoxgaw6flnfgg Wfgxk2ybxf87gT36H60k JXggBGCwHNL8CLAgCZQz zDmnyv6poH7iOb2+IDxj j0sml2ojuHq1RyVm LRIsmhMkgWraYGC5s1Cj Sx21D2NjxDybm9PqQef3 or70xVElp3O2cPI5BKxb TLTevN5cGIdqBlO3 IJJtUgAhcN57xDYsVMcr Ep1unAogxGucMJ7rBKGo zvqdRHLrmQ3pGJXvcROm pGgvPA4tMCHxayxp j440RyJwCGB7NEEusXLc X5WeoZ1wLqKyXKBtJQOw O6CuiVXqZZqfK668VVyf XgV5YIWihaRnS3Cs QUTixGgwIkH0t2E8Vh5U j9LtiwauYUO2IBufQKBw NbM1ChGwZiG7E8YxWav9 MYQoaLhgHA9fW6Ex EKPpqinilymrrIX2SDAr YQYljJ16vPYtDRfaFs9z u0R7i370SQEaGNQpfU02 Qq5ynWzqTEVtsUBD kZ0fglerc5vdglbtHqXj SFAmWTx7WIr4SHScbAvq VuHlXFB2VvP2WUK5eTFc lQ9pmUwuqrgpjX5d Oyc+O08gcQ2mVBK1NGY6 xltoHOIkuyEnBB89ZH94 Y2DmBphrrOQdvCM+PGRp iwJcoPqkEV1mSuGm o0qqy6HqZRzgR7BlDUBd IOdbRea3UXUeBKS7cGW8 rZ6pVSWtDIjkc1A5aFQ3 T2SowpDkpg6nz8uf CMOwJExaX89coDCmm4B2 AQHdvTO6KZWrxQbcSsIv gJ95Uel+EEVsrYclv7Ki Xigua9sob9undMs5 IjMwJSIgdmFsaWduPSJ0 i8ExQr30P67hPMszUHGo CHElUTUsTXRvxZudek9j kY0qNs3+PGNvbCB3 nGZ2lP0eOOFnXsT5DLdw N251LzHymAQfEjzdg9dd l8wwlEy7SnUwCDOmypBi jDvgWQI5w6OlKd42 P76yYLruKXNvCRUpCFKg FSAcjQpdsn1edX0zTk8+ NC6eg7xrsm97qA44wLE+ JKFlPHH6uPdtKStf GLLicD0uTZtdUdP8ACUv JqVdwM83xIBdYGxbKh7h dZadvYamTV8aXFGnflkq g373PvXrj5faQBRi tWUrHUzsIRG0E17ue7G6 JBGhJDCfDSU2rNA6mQ7z bGlnbjogbGVmdDsgdmVy qInxORzgPDfmL803 IHRvcDsnPlBhdGllbnQg GxWkEPa2K8KkRam7CSHd uVasDG1wqHPgLRjoFl1r nXjyiUhbMC8sYOCw sdlvu682WtWma5llUHOy wYEuZKpxQJT6L48gy5H7 XTUrSLGbBLK3mHL3xD2y bGlnbjogbGVmdDsg ytLmzKelDDwfPRlsT466 IHRvcDsnPkJpcnRoIERh wDG3RH30GB23fSZmy8Q8 pWU9L6TmNWUznaby agbtaER2GTNvXKHksN13 Ds8exBzjIz9pIFClDQL5 RFTwjNQlG8KtrJ1dImFt WOMhMBBmP9ZyxWAj NQytO090AXyuPaX2PGDq xaLeO5YmJFFfaHasRtA6 l0V9Tw3MH8K9SA15OT25 kHEvz2F5mIJ5I5Gl KIFoyebkdriwyIJ4XXTu UQXijQ37Za1ncXnjUd1m UPTvQSY7UOYzcCZjS6Qa eJ7eGdGeQCYoWVSp P6NsgDFgRTghL998CTsr QoZ9XNOsyfHrY7WkUZNz jYqaMrQ3j9D5Ji1WZXa5 KL81GH60mAXvl8N4 gBX0G1MuDABgzmzpjnjb yYH7BIKyIFSlfY61Ll4i dHdlWd5fXXGiFAO4AIMq pGNrU9JfjQ6zEiNw WWCxRZVbW4EwyWYgVWpj U715NVejDyC1FHFyexTt F9ZoCQStsWplOoQ6t4Y3 Mu2NCWIeET82KTY1 hEC5OU99GA04Q0XcGniz dGFibGU+PHRhYmxlIHdp ZHRoPScxMDAlJyBzdHls FG7zDx3nEZKaNZIc kPrmvTUwTnRqr3szFRQk HEdxOL8gyCqoU7BvfRY4 AFPov9x3Uh84V75vV8Ff dXA+PNDdySZ3pZJ6 aM9xJdAhEnG5YKkxP817 PmRqjPMpFyrah6xzo2yw eUh5HbU8FDBiqyCncLuc BSC7w1KxXr83L59t IHdpZHRoPSIxNSUiIHZh mCisnv3wbU3fHl0+PGNv gDK4oOO0jD3nFkWuQfT5 WKosF549TmHejULy Fioiq1ywt2rowKy4ArNg VOPfghYvpOrxZAK2j1Cg Hg06M6RkiXmqw9XfHbu0 xj27eEZpc6G1zTI5 F3IeTSPntplrhPLcjVhz AB4cJCGohlmuZPQghP4d JPDpJ2r9HeMgNmQ0NHhn N6BitbZ0QPNvkKVp XSdfEUS2W07qn9N8NQMy UQTcPAP9vBJ8xU0bkTrr bjogbGVmdDsgdmVydGlj YAbmODylU212MTNq dFlaAWVxiM1uWXCfkVYw gDmxEH7mMXKwjphnEwqF ICHJLjwdK7ZSIZuYUuiG VA87F2EhHkz9MDAj vPjmBP0drGYmAXfqFz5e rFczuErdPB3iIZGzepoj IAWnoQ9eGGZjcZMllWqa TF2vMBZzldohw541 ZzQxMTH3PPBjwXTpX1Di xI1sPlWeLTSnDYLxH7Gr jLNyANxqC134ARgiEiP8 TYBkefOmG3FjBVWk mGouCeL5d9Z4Vn4dXh9x RY7hARaxLB07JZ85eUKl s5W0eEQ0L5AvWJBymuwz hytmrLT1NYXhXYEr gX78zQLbALdePo1co7F7 c957NECeQVLxsY63Ur3y xCfaWRKbxIUQvL7atbgk f5dspfgaGbNeXGSp SPk1HGb5CHVhrEsbMgMp AVC2NcB8QNB9oCNueO6v vGoyhuuafC6sXae+NTAg ANWflfT7G6FuYug2 DSAjyRquBU8dmXPdXTym Oa2azTagiVeqYS2qLNKe yhpqWZRvpB2iFFIhvVHo dHccUE5eMFYivwfp o803NiOnEWE1JECbzIYl D2RvlW7tBpRlQCTuMJEt J9JlfZAuPTsbT539TSuw IdC9URZyxyMaD4Gt ENCzpGkaZrU6d2S5Yu0P LG7sbXK9N2IbYbn3SCXx tPxrRQ3foJUuLAijYy0r mLhirWpuFD1uIYZi grjaMHMpmD9tABSrnSAc oOzmNK1sWCTmdizne946 NxKnDPK8OBEdsWZfA1Ps pX0iBxEkTDTbMSUj E3QpkSSjTFyzY442TMul XkW0BVPxhxRcG6NcLWRv zLmlFhE3p8Y0Vw3WnVA3 zRF9d1C3G5OoiHVn ZGW6OFB8uptcrim1Y1Is PjwvdHI+CU78HPBsNA31 qTYorKWyv9uuuAf0RlUn ROLfPQE5aBdgKTye q1VhHVArJ84zgFPob3H4 IGNvbGxhcHNlOyBlbXB0 nW5vOWpeusffp4ystett Ehenp6lxmr08vY50 F67kXNfwBGSgYAMqOTQk DVJoyFzxml3dbL8gAv8+ ZHBfeLF3dZU6fB0xHrKf XcS4OZatD923FgXc yHZjWzqfd8eat8shcSe5 IjIwJSIgdmFsaWduPSJ0 x5EcFt09M17pDJxfTOJr PSIyMCUiIHZhbGln eg6keL7jMm1+BM0oj2ni eu90rR64bLM+PHRkIHN0 fSuxEUleSOMudG4hUUcn UfB8DTOwJtRrtG91 lUHiOZglSk3spCercYag GO0rATTunpmto238LqXf x3vrYAKefTQgZTjxDTA7 L09ux7E4DNFkXYSs OZF8fUQ6hX3vmKfgrdte bGVmdDsgdmVydGljYWwt YVvfB780FGFboBzwMwLz tMBlX1xhqxDEZG7s OjwvdGQ+UXNmWYK0qNxi PNbnXDZhyN1qXJLkX1y2 UpQeLyK5ZRuaL9YzpeL7 IGJvbGQgMTBwdCBU uV8mwojgb5ugyivuNwWt RCLxQSk7OFa0FQLveLrd EeKwPSB7SfH2DTR0mABx gN2atAknhqireR9z Oyc+RklOOjwvdGQ+PHRk WHB6zTgjITwaBRTitF5g SLZcV3e1UpCkJxC8NSov Z6OeaoN8QEOxuGCt DCOorNWNqF9tfvbcd9zn gxxyEfDoCPMjRDw8HSk0 JTRmeGyzOqJyIGB0OvO3 WCQ3bAWjeK1fhWxm msjckK7vXxl+TVJOOjwv dGQ+FJKsSKU8aFidDHzx PSGyqZ1uEEVzK0l9TzBx PsJ0JIywX5XypvJ0 MOMchOSdFAUjxKLZgR1a qtubi4bjaoakAkVvQBEw RFg1OTj0EBIjbDbqXgQl SDK2OkQ3WCG8tBMp iL0iiYlznnrmxI6tMot+ LUQ7EMW5RM31FQ00U7Zf PjwvdGFibGU+PHRhYmxl IHdpZHRoPScxMDAl JyBz (more content not included)... Normal [facility] Consent for Procedure/Surger yon 09-03-2022 Consent for Procedure/Surgery [id number]#1.00CD:127 Normal [facility] Discharge Instructionson Discharge Instructions [id number] 97#1.00CD:127 Normal [facility] Cardiovascular Reporton 08-08 Cardiovascular Report [id number] 5#1.00CD:127 [facility] Consent for Treatmenton 08-08 Consent for Treatment [id number] #1.00CD:127 Normal [facility] Inpatient Clinical Summaryon 09-02-2022 Inpatient Clinical Summary [place] [id number] Clinical Summary Person Information: Name: JESSENIA WING Age: 51 Years : 1970 Sex: Female PCP: Pb BAUMAN DO Marital Status: Race: White Ethnicity: Non- or Language: [place] Visit Id: Visit Reason: I82.893//US GUIDED INJECTION SCHLEROTHERAPY Speciality: Acuity: Enc Type: Ambulatory/Same Day Surgery Med Service: Surgery Arrival: 09/02/2022 11:55:38 Discharge: Dispo Type: Address: [address] [place] [address] [phone] Provider Notes: Diagnosis: Problems Active Tenderness of [...] Dover MD Follow up: With: Address: When: [address] [address] Business (1) 09/30/2022 10:30 AM Comments: Keep scheduled appointment Patient Education Information: CV - EVLT Discharge Instructions (Custom) [facility] Inpatient Patient Summaryon 09-02-2022 Inpatient Patient Summary [address] [address] Patient Discharge Instructions PERSON INFORMATION [...] results: None Follow up: With: Address: When: [address] [address] Business (1) 09/30/2022 10:30 AM Comments: Keep [...] concerns, call to speak with your doctor. [facility]: [phone]. Medication Leaflets: You may receive a survey from [facility] [employer] asking you to rate your care experience. Your feedback is important and will help us understand what we do well and how we can improve the quality of care we provide to you, your loved ones and our community. It?s an honor to serve you. Thank you for choosing [facility] Normal [facility] Operative Reporton Operative Report SURGERY DATE: 09/02/2022 [...] No complications. Rita Dover M.D. Dictated: 09/02/2022 [id number] Transcribed: 09/02/2022 [facility] Comment on above: Result Comment: Elec [...] concerns, call to speak with your doctor. [facility]: [phone]. Normal [facility] Coding Summary.on 08-20-2022 Coding Summary. CD:[id number] Gh0bWw+PGhlYWQ+PE1FV FPfE36duJEvyD9LU3pAJ Q1EXCAQLFFAMD0WEV1er BY1GIfnW2DjolAj OorquVFqRP93KIx8PLF0 yVirYDqcgP7xpTTbA4h7 JdLxBM91sI36UItvGPIc QgI3VhZcdtwihHKr L9fbPrDfzOIjTdp+PHRh YmxlIHdpZHRoPScxMDAl OiUboBjsWY5pIe5uGFVp LWNvbGxhcHNlOiBj p6urKMTfTKqsGZ8dhMrw H6QhoMK1MWIyd8g1Jk65 dHI+KENbKUW4vSynXSas x289AaVmb5szSYQ5 sHTqMGlsBSC8S14hh3S7 HHIqIEThKHY3kKS4aO0c nUchuhdgU2QiuHBtTqQ0 XHM1vBSnmK4obZpv czatpQ2ePkp+P16BWP6Q CROVGQ6SDhr5D7KnCvsv dHI+OO10TBReRH59jFKk jXAhi6mjfZq9ClRg SGEaDWG4cDsgMKtot7Cz BHSgQ61wsCAiy8B0XNTq uAhkdVVdZmGhpAW4pT3j YCtpfejii5pqwytg Jngkx0gqhi44eC40M78a MNrsYQGpLXN9KRTeZEEt kVprln3ceM4pCx8+IDxj h4psq1wldXf2LcMl QVPqkkSwiWutVAH8u9Lj Vr24T5FgwHdip7BwVsp2 tm00dVTor5S9wFW1BYhz WVByhW2cAUezHjQ9 KTVxHkEslW27vCCpHKsl Ul5tzWcmcKweFS4oZAJa trrrGZWeoC7sJAYihYVm aAknLJ0zOCLcvmpk r869PkOiXYD2PQMrmZYn Q4PwxO9aBvMpGXBgSZZe I3PrtQTiMSgrW352OHjn CrW0WGJyrtZeW7Mn NTJdtEbsZrF0b7Z2Vu7Z c7GbroaxMGN3IAdaIRFs UaW5BsZuDqO2Q5OiWva8 ELXsuFrvDA1mD7Wc USMzblltzkzhoMI1UWRp WDFrnA03fZNwCCwpNd8e a1Y3a311CWZuUUCcyQ54 Xf5tpWpuNZZgjGYB rL3qxixtm8oznmvmAdVp SYRjZZr2RCs1UMLjyGlf RfHcNFJ2WhZ7XHY9jKRf vE4xlDtrdhtjaV4c Oyc+M42huA1mZGI1MJT1 ejuaNMQnwdFzJR12JV86 A3DmEvzgyNUxyNE+PGRp ofUcnKepFO3kKmUc y0miz1QgLDjcC8UeWWQu NYwxTqu3SYQbKBW0sMQ7 bL1tOOUiTLhoa7A8mIF0 V5KoakNgje1cz3va ITOmUUacF44sdRQza1P0 XLSclWW3FDAgzJvzDiMl dF27Mkk+SVZzmCtub6Jk Enfzh7seq3tvtLa0 IjMwJSIgdmFsaWduPSJ0 p7JfEt86Q68mIDroBXJj NVNhIUMfGNLejBvucu5a kH1kQv3+PGNvbCB3 tFP8aF0xSRZcFtG9XWfn S111BxPwxJPkNtdwn1gw q0vhhSy5MfPcCDCtprAg fXryBLV5w4JkNd98 T96kJLmvRCJeYIAeEMXo OLArmNqtod7pjU4hJp3+ LT5oj7ikwu39gD55dKG+ HGTeNPF6aLzsDYba RWBkeE4vPTudIoO4NFTw EfTloL26aJLvZSvaZk3g mJovdNthBH2cOWKttoob z264NeFgs4syVQOe kQItDGvhPMF0K20gf5A5 QUBeMLQsCRA0jCP2zS8n bGlnbjogbGVmdDsgdmVy rPmbJSriWAaxB536 IHRvcDsnPlBhdGllbnQg VrNdXAd4Y9FkJel1YCIs sLlpFO9xdYUlTMjoLt0p pPesvEjnZI5gIYEr jpfgz159BuRyw6juBQIw mZVoWTjgROO4H55mw9X0 TMNiJONmMDH2xVX4sG0r bGlnbjogbGVmdDsg doFezYqdSIkvGDjfU990 IHRvcDsnPkJpcnRoIERh uJK8HK99TJ31nHMat6T5 kAD2X1FdHUKmrvgd wyovrUA9SNGxQWWfxO05 Ph6elPaaEb2jUCVbUHW4 VWVjbGWvG9DtyC5sGeIf RBJgYIJfX6GhoHGg XXwwB684IHoaKaD9MUGc bzRfI2XrAFTklZgtLvQ3 e8F7Vc2YI6F8BT29XB00 xUFhp8O4hPE4Y8Zs AXKqcudouqftmDE8IJQj KPFqtX44Pp3ncTycNn2j RHTjYQI4NDHfqKRtH7Iy fN1cVdBfBDCyRTHl X4YhjJErKFaeZ963ZKou DrR3TVGhcoLmK3AsXMFk eEzkRpS1l0Q1Zf3VXHe0 AF61WR05jSDia9S8 jBR9T1ZdKBLlsujeaktj xCJ1HKTbBTJgpB45Ts4c rEmhOc0gQUAoQBB8NQXm eZLsG2IshB2wTuTo WZJwBDPuU5HmoLLkPDox G749QPuhNkZ8GTJvzoNh P5PqIXXhoJadAvW8w7M0 Nf7XSKKqUS21WNA1 sLI5QO24GF23C4NkOyce dGFibGU+PHRhYmxlIHdp ZHRoPScxMDAlJyBzdHls EQ6oQr4mCLAwVFEm fImkrNJwLgFts5slSAPg FNytSG1gyIfvP1QzlGM9 OMRrg5t9Lw25H30jD4Ki dXA+CPOztAC6gEF6 hI4wQdIdPrG1KKcmE051 YjUjgWWwYdgio9wtw3dg yKu2EfA4BIGkgqCtgWeu EOC8r7WqCm13A43i IHdpZHRoPSIxNSUiIHZh zImafa6vtE0cGz3+PGNv oJE3eNH2tS9uIjSsHfB4 PGzsR407LyBjhSGh Dkrdv7rdj3cqsJv9OxYr SHPoacWxtBriVAV8t2Pz Qp20J0NjkWnps5HdYsd1 mw17tBIjm1O1iBO4 M2FvGKBosejheGIudEaq TE2zJUJwmsdzOBGjyF4p ISPjM9u5HoYxEvR7VRnp G5ViqyJ7KTWrgXIt THjjRQW2R14bj8G1VFMj SBYrCRN8gVQ5mJ2oyRth bjogbGVmdDsgdmVydGlj PZrsXMtaW249IGMt vQfpEEZpdT2zZUYgqZVj nWjtEN6pNZVzknwmKdnO AHMALghsH3HISDzTEcbH NL89Q3EuDqm8YJSs fIklSG5lyDVjZQspYt2l tZxkcSpbHS8yMVGmuvru KLUvpZ0hGVQveXOiuDts UM5tHASlzhwze561 ZqYmSZA9ZJPmkMAhC7Cj rY6fPpHfQFGaBFEtO4Zy qVWfFLxsB105NRyhCvV7 RDAswtSiG7KyGAQm tNokUyO6j2B6If5oKf6w PN6mKNniJV07EU52wCNp n4O1lOB5L1HwRSEtpvwf swoxkOR7TVCwEDPm lT63kKMsFIqaNy4vt5G7 g250QVFqJWQruF01Rj2f vWrbIOStoDIGpE2icevq d8eqvztsNrQaDOCj VAh5VCd6FOXenFsgLzHr GTE9ShT7JXO0nNAqkO5s uWhnmgutsX0pDix+NTAg HTNqghG6N3DvXzc4 HQXmrNhjBR0ggTBwBRqc Zj6exRfwbPbyJL1dXYAx pqxyFBWdpG8eUYLfvSTm kUfrFP7qVNNfjzio e969NmQnPHX3BQSttLPx Q2FknR3iAbPwUCTgUMKe M2MuyWZtYAzxK813EMou XvG7WQXobaPvE5Wf ECUwdSseVrE4c7O4Ht8N WG7xbEF9S7IuDac3EYRz yXevXT9lsDNlJFsaZo5v mTjwqFtcQV9jCHPr nhxqILBkqE5cWEWwnBQs fGwgYR7vAIMywksew109 SiPbCGW0PKJtpMOzJ0Nv tK9jNuSbFRQoHFGm V8DsqCQjGSbwZ443BQbd CsJ4AMGhpgZiY4AuDUFd hXkxUhP3r9H3Df2XcEBz HJYwKS07ZB83ZO42 T2PaVlodrVDbdDA+PHRh YmxlIHdpZHRoPScxMDAl IsVpmJlsZH8eRx3lPFNu LWNvbGxhcHNlOiBj s0uvQJZvCSmePH9qlJay F4ApsWV0YSSja9b9Yx26 D59gB1LryDR+PGNvbCB3 uZK2mX3zShHbNbG3 PAvlC175GqCufSBgYeha l1urv6nwyIq4YnCyCQNn pcVaqQguQUG3z6PzTl43 M26xGIkwCYLgWIJl FIUgUMNokUylpi6msE5t Ii8+NIXfrJX6kXT9jF0k CeUdBzW5INfmE077NxXa kOPsZwoeK32wV0Si dXA+MPPlBsx4EKNnjUpm MW2fcCXbJEjdHf9dUTO2 EyJnZvXuHJkyX7LsXKFl xiejqwkwvDU3SKDh KDMpkY67Pt5dnZxkXz8u JWTaKFF3IPBcrHJfZ2Ff hL9fJoGdRGDzQCWbQ7Sq rFEhAObcB631PBfi QjU1RUYintPmT2MjVPMn xAjaOuH8m1R5Wa9MmJtm yJRgJZ6zXiUiCRq3O1Xu Dvz1UMJfbSvjPD6g vAPnJAaeVa2ueIuamIsm TX6wPSIekdwsg883ZrKf c6pcKWHdrMQqTKmfPXI7 J04ni1N4UMYkCWFe ECO6mYJ6eG2bxUbuwkwh bGVmdDsgdmVydGljYWwt TErzW600UOExhPpgCmPS Umk1T5EeTzj0ETRc vJahLO2jnZWxMBdeXr7x cLpazFleJH3pKAZtisye t332MnIsm0wsKGWlhYEa XJklUKZ4T56wn8J9 OHJyYKXkFLA5iBL3pW3b bGlnbjogbGVmdDsgdmVy sWklJRnjDSnyG879UZBx eJfhMc7TOtb7G9Po Daw4LPGeaCxrAY5tkJXo RRhjQv7bgPvxeGihFO5f VXKzsnoqd993IxXlk9dn IDEwcHQgVGltZXM7 U72hr0L1XLGkFEMtJVX4 uCP2rG7yqGfsrdwfpMHb dDsgdmVydGljYWwtYWxp S903FJYeiXjaWrDk eWVyOjwvdGQ+SA51ke06 U2GlBgirLlq3OIIqQPQ3 iRA7lQ6zMBMtODcwa9Q7 vWN6I1CharVzob3e b2xs (more content not included)... Normal [facility] Pre-Certification Formon Pre-Certification Form [id number] #1.00CD:127 [facility] Consent for Treatmenton Consent for Treatment [id number] #1.00CD:127 [facility] Heart and Vascular Office/Cl inic Noteon 08-08-2022 [...] influenza virus vaccine, inactivated 03/2019 Recorded Normal [facility] Comment on above: Result Comment: Elec tronically Signed By: Stanislaw CROCKER, Rita Long\.br\Date and Time Signed: 08/08/22 15:58 EST Physician Orderon 08-08-2022 Physician Order [id number] #1.00CD:127 Normal [facility] CNOVon 02-22-2022 CNOV Office Visit (LOORRM) JESSENIA WING ([id number]) 1970 F Date Time Provider Department 02/22/22 [...] Recommend conservative treatment with activity modification, ice, rihs-xzw-ehxxcdm NSAID. If this becomes more significant she [...] (osteoarthritis) of (more content not included)... Normal [facility] XR KNEE 3V AP/LAT/MERCHANT L Ton [...] significant abnormality. ----- IMPRESSION: No acute findings. Telephone Coin Box Collector: PSCB Transcribe Date/Time: Feb 22 2022 2:43P Dictated by : CANDY FORMAN MD This examination was interpreted and the report reviewed and electronically signed by: CANDY FORMAN MD on Feb 22 2022 2:47PM EST [id number] Normal [facility] XR KNEE POST OP 3V AP/LAT/ME RCHANT LEFTon 02-22-2022 [facility] HEMATOLOGYOrdered By: Eloina Tincoo on 11-14-2021 Erythrocyte distribution width (RBC) [Ratio] [...] Anion gap [Moles/Vol] 12 mmol/L Normal 9-18 [facility] Comment on above: Performed By: #### C BC, BMP ####[place] [phone] Calcium [Mass/Vol] 8.5 mg/dL Normal 8.5-10.2 [facility] Comment on above: Performed By: #### C BC, BMP ####[place] [phone] Chloride [Moles/Vol] 104 mmol/L Normal 97-105 [facility] Comment on above: Performed By: #### C BC, BMP ####[place] [phone] CO2 [Moles/Vol] 23 mmol/L Normal 22-30 [facility] Comment on above: Performed By: #### C BC, BMP ####[place] [phone] Creatinine [Mass/Vol] 0.79 mg/dL Normal 0.58-0.96 [facility] Comment on above: Performed By: #### C BC, BMP ####[place] [phone] eGFR- Amer. >60 Normal >60 [facility] Comment on above: Performed By: #### C BC, BMP ####[place] [phone] eGFR-All Other Races >60 Normal >60 [facility] Comment on above: Result Comment: eGFR [...] GFR. Performed By: #### C BC, BMP ####[address], [place] [phone] Glucose [Mass/Vol] 127 mg/dL High 74-99 [facility] Comment on above: Performed By: #### C ANMOL, BMP ####[facility] [phone] Potassium [Moles/Vol] 4.6 mmol/L Normal 3.7-5.1 [facility] Comment on above: Performed By: #### C ANMOL, BMP ####[place] [id number] [address] [phone] Sodium [Moles/Vol] 139 mmol/L Normal 136-144 [facility] Comment on above: Performed By: #### C ANMOL, BMP ####[place] [id number] [address] [phone] Urea nitrogen [Mass/Vol] 12 mg/dL Normal 7-21 [facility] Comment on above: Performed By: #### Js COREA, BMP ####[facility] [phone] CASE MANAGEMon 12-21-2020 CASE MANAGEM HNO ID: [id number] Author: Kirstie Mcfarlane RN Service: Case Management [...] 21, 2020 TIME: 1:01 PM PAGER/CONTACT #: [phone] [facility] CASE MGT INALICE [place] 2020 CASE MGT INIT POOJA HNO ID: [id number] Author: Kirstie Mcfarlane RN Service: Case Management [...] symptoms;To improve my functional status Health Insurance: [employer] Health Issues Impacting Discharge Plan: Chronic Chronic: htn, asmtha Last Discharge Date: 11/19/16 Is this Within the Past 30 days? Last discharge within 30 days: No Advance Directive: Current Advance Directive: Health Care Power of Demo Specialist In Chart: Yes Up To Date and [...] Walker Has the Patient Been in a Snf Facility in the Past 30 days?: No SOCIAL: Living Arrangements: Home Lives With: Spouse Financial Resources: Employed Primary Contact: Extended Emergency Contact Information Primary Emergency Contact: Orlando Wing Address: [address] [place] [address] [facility] Mobile Relation: Spouse Supportive Patient Contact:: Yes [...] Completely I feel financially burdened by my zul-by-sxpebu expenses for my prescription medication:: 0 - Disagree Completely Risk Score: 0 Patient is categorized as: Low risk < 2 Are you interested in bedside delivery of your medications? Yes Is Patient Psychosocially Complex?: No ASSESSMENT AND PLAN: Medical Needs: Medical Needs: None Psychosocial Needs: Psychosocial Needs: None FREEDOM OF CHOICE EXPLAINED: [place] of Choice Given: Yes Level of Care [...] 21, 2020 TIME: 9:30 AM PAGER/CONTACT #: [phone] Normal [facility] CBCon 12-21-2020 Absolute nRBC <0.01 Normal <0.01 [facility] Comment on above: Performed By: #### C SANT[place]A ####[facility] [phone] Erythrocyte distribution width (RBC) [Ratio] 15.4 % High 11.5-15.0 [facility] Comment on above: Performed By: #### C ANMOL, SANTA ####[address] Hematocrit (Bld) [Volume fraction] 29.8 % Low 36.0-46.0 [facility] Comment on above: Performed By: #### C ANMOL, BMP ####[address] Hemoglobin (Bld) [Mass/Vol] 9.3 g/dL Low 11.5-15.5 [facility] Comment on above: Performed By: #### C ANMOL, BMP ####[address] MCH 26.9 pG Normal 26.0-34.0 [facility] Comment on above: Performed By: #### C ANMOL, BMP ####[address] MCHC (RBC) [Mass/Vol] 31.2 g/dL Normal 30.5-36.0 [facility] Comment on above: Performed By: #### C ANMOL, BMP ####[address] MCV (RBC) [Entitic vol] 86.1 fL Normal 80.0-100.0 [facility] Comment on above: Performed By: #### C ANMOL, BMP ####[address] Platelet mean volume (Bld) [Entitic vol] 10.6 fL Normal 9.0-12.7 [facility] Comment on above: Performed By: #### C ANMOL, BMP ####[address] Platelets (Bld) [#/Vol] 110 10*3/uL Low 150-400 [facility] Comment on above: Performed By: #### C ANMOL, BMP ####[address] RBC (Bld) [#/Vol] 3.46 10*6/uL Low 3.90-5.20 [facility] Comment on above: Performed By: #### C BC, BMP ####[facility] [phone] WBC (Bld) [#/Vol] 6.64 10*3/uL Normal 3.70-11.00 [facility] Comment on above: Performed By: #### C BC, BMP ####[facility] [phone] CNDSon 12-21-2020 CNDS HNO ID: [id number] Author: Stanley Bunch PA-C Service: Orthopaedic Surgery Author Type: Physician Mounter Sousaphones Type: Discharge Summary Filed: 12/21/2020 9:31 AM Note Text: Attestation signed by Rex Meredith Jr., MD at 12/21/2020 10:11 AM agree DISCHARGE SUMMARY Patient Name: Jessenia Wing : 1970 ADMISSION DATE: 12/20/2020 DISCHARGE DATE: 12/21/20 Attending Physician: Rex Meredith Jr., MD Primary Diagnosis: Failure of total knee replacement, 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[facility]) [T84.110A, Z96.101] Operations During Hospitalization: Procedure(s) (LRB): REVISION JOINT [...] Discharge Medications: Jessenia Wing Home Medication Instructions JOE:[id number] Printed on:12/21/20 [id number] Medication Information acetaminophen (TYLENOL EXTRA STRENGTH) 500 [...] Dept Phone 01/11/2021 11:30 AM DEISY GONZALEZ [phone] SIGNATURE: Stanley Bunch PA-C PATIENT NAME: Jessenia Wing DATE: 12/21/2020 TIME: 9:31 AM PAGER/CONTACT #: [phone] [facility] CONSULT PROGon 12-21-2020 CONSULT PROG HNO ID: [id number] Author: Toan Can MD Service: General Internal [...] meaning may be extrapolated by contextual derivation [facility] THERAPY NTon 12-21-2020 THERAPY NT HNO ID: [id number] Author: Paige Stockton OTR/L Service: Occupational Therapy Author Type: Occupational Therapist Type: Therapy (PT/OT/Speech/Resp) Filed: 12/21/2020 12:41 PM Note Text: Occupational Therapy Evaluation SERVICE DATE: 12/21/2020 SERVICE TIME: 1151 to 1206 ROOM: [place] [address] Recommended Discharge Disposition: Home Anticipated Discharge Needs: [...] Occupational Therapy Problem List: Safety Deficits;Impaired Self Usp Environment Patient Lives With: Family Assistance Available: [...] living (ADL) Interventions Provided: Evaluation $ Evaluation-Low (43814) Billed Units: 1 unit Training AND education [...] DATE: December 21, 2020 TIME: 12:40 PM [facility] THERAPY NT HNO ID: [id number] Author: Kirsten Uriostegui, VERÓNICA Service: Physical Therapy Author Type: Physical Therapist Type: Therapy (PT/OT/Speech/Resp) Filed: 12/21/2020 12:06 PM Note Text: Physical Therapy Evaluation SERVICE DATE: 12/21/2020 SERVICE TIME: 1059 to 1140 ROOM: [id number] Recommended Discharge Disposition: Outpatient Physical Therapy. Pt [...] walking-musculoskele carol Interventions Provided: Evaluation;Therapeut ic Exercise (27302);Gait Training (60010) $ Evaluation-Low (22285) Billed Units: 1 unit Therapeutic Exercise (81754) Treatment Minutes: 10 $ Therapeutic Exercise (58813) Billed Units: 1 unit Gai (more content not included)... [facility] ANES POSTPROC EVALon 021 ANES POSTPROC EVAL HNO ID: [id number] Author: Zeke Prajapati II, DO Service: Anesthesiology [...] December 20, 2020 TIME: 4:27 PM CSN: [id number] [facility] ANES PRE-OPon 12-20-2020 ANES PRE-OP HNO ID: [id number] Author: Adan Viera MD Service: Anesthesiology Author [...] December 20, 2020 TIME: 11:29 AM CSN: [id number] [facility] Anaerobe Cultureon Anaerobe Culture Culture Result - Negative for anaerobes. No Cutibacterium (Propionibacterium) acnes isolated. [facility] Comment on above: Performed By: #### A NACUL ####[facility] [place], [place] [phone] BRIEF OP NOTon 12-20-2020 BRIEF OP NOT HNO ID: [id number] Author: Rex Meredith Jr., MD Service: Orthopaedic Surgery Author Type: Physician Type: Brief Op Note Filed: 12/20/2020 3:24 PM Note Text: OPERATIVE/PROCEDURE REPORT LOG ID: [id number] SURGERY/PROCEDURE DATE: 12/20/2020 INCISION/PROCEDURE START TIME: 1:19 PM INCISION CLOSE/PROCEDURE END TIME: 1523 SURGEON(S)/PROCEDURA LIST(S) AND FENCE INSTALLER FOREMAN(S): Surgeon(s) and Role: * Rex Meredith Jr., MD - Primary Physician Mounter Sousaphones: Wilver Newberry PA-C; Deisy Gonzalez PA-C SURGERY/PROCEDURE(S) [...] December 20, 2020 TIME: 3:23 PM Normal [facility] Basic Metabolic Panlon 12-20 Anion gap [Moles/Vol] 10 mmol/L Normal 9-18 [facility] Comment on above: Performed By: #### C BC, BMP ####[place] [id number] Calcium [Mass/Vol] 8.5 mg/dL Normal 8.5-10.2 [facility] Comment on above: Performed By: #### C BC, BMP ####[place] [phone] Chloride [Moles/Vol] 111 mmol/L High 97-105 [facility] Comment on above: Performed By: #### C BC, BMP ####[place] [phone] CO2 [Moles/Vol] 23 mmol/L Normal 22-30 [facility] Comment on above: Performed By: #### C BC, BMP ####[place] [phone] Creatinine [Mass/Vol] 0.73 mg/dL Normal 0.58-0.96 [facility] Comment on above: Performed By: #### C BC, BMP ####[place] [id number] eGFR- Amer. >60 Normal >60 [facility] Comment on above: Performed By: #### C ANMOL, BMP ####[place] [id number] eGFR-All Other Races >60 Normal >60 [facility] Comment on above: Result Comment: eGFR [...] GFR. Performed By: #### C ANMOL, BMP ####[place] [id number] Glucose [Mass/Vol] 140 mg/dL High 74-99 [facility] Comment on above: Performed By: #### C ANMOL, BMP ####[address] Potassium [Moles/Vol] 5.0 mmol/L Normal 3.7-5.1 [facility] Comment on above: Performed By: #### C ANMOL, BMP ####[place] [phone] Sodium [Moles/Vol] 144 mmol/L Normal 136-144 [facility] Comment on above: Performed By: #### C BC, BMP ####[address] Urea nitrogen [Mass/Vol] 9 mg/dL Normal 7-21 [facility] Comment on above: Performed By: #### C BC, BMP ####[place] [id number] CBCon 12-20-2020 Absolute nRBC <0.01 Normal <0.01 [facility] Comment on above: Performed By: #### C ANMOL, BMP ####[address] [phone] Erythrocyte distribution width (RBC) [Ratio] 15.8 % High 11.5-15.0 [facility] Comment on above: Performed By: #### C ANOML, BMP ####[place] [phone] Hematocrit (Bld) [Volume fraction] 33.1 % Low 36.0-46.0 [facility] Comment on above: Performed By: #### C ANMOL, BMP ####[place] [phone] Hemoglobin (Bld) [Mass/Vol] 10.4 g/dL Low 11.5-15.5 [facility] Comment on above: Performed By: #### C ANMOL, BMP ####[place] [id number] MCH 27.2 pG Normal 26.0-34.0 [facility] Comment on above: Performed By: #### C ANMOL, BMP ####[place] [phone] MCHC (RBC) [Mass/Vol] 31.4 g/dL Normal 30.5-36.0 [facility] Comment on above: Performed By: #### C ANMOL, BMP ####[place] [phone] MCV (RBC) [Entitic vol] 86.4 fL Normal 80.0-100.0 [facility] Comment on above: Performed By: #### C ANMOL, BMP ####[place] [phone] Platelet mean volume (Bld) [Entitic vol] 11.0 fL Normal 9.0-12.7 [facility] Comment on above: Performed By: #### C ANMOL, BMP ####[place] [phone] Platelets (Bld) [#/Vol] 120 10*3/uL Low 150-400 [facility] Comment on above: Performed By: #### C ANMOL, BMP ####[facility] [phone] RBC (Bld) [#/Vol] 3.83 10*6/uL Low 3.90-5.20 [facility] Comment on above: Performed By: #### C BC, BMP ####[facility] [phone] WBC (Bld) [#/Vol] 6.04 10*3/uL Normal 3.70-11.00 [facility] Comment on above: Performed By: #### C BC, BMP ####[facility] [phone] CONSULTon 12-20-2020 CONSULT HNO ID: [id number] Author: Toan Can MD Service: General Internal [...] 12/20/20 1630 102/ (more content not included)... [facility] NURSING PROGon 12-20-2020 NURSING PROG HNO ID: [id number] Author: Cherie Rose RN Service: Nursing Author Type: Registered Nurse Type: Nursing Progress Note Filed: 12/20/2020 5:21 PM Note Text: Nursing Progress Note Patient Name: Jessenia Srivastavar Patient Location: [address]/[place] [address] - Transfer Note: Patient transferred into room/unit 502-2 in stable condition. Actions taken: Patient and family oriented to 5D unit policies and procedures. Educated on falls risks, falls precautions, and use of call almeida prior to getting OOB. Patient resting in bed. Call light within reach. All needs met at this time. This note was completed by: Cherie Rose [facility] OPERATIVE NOon 12-20-2020 OPERATIVE NO HNO ID: [id number] Author: Rex Meredith Jr., MD Service: Orthopaedic Surgery Author Type: Physician Type: Operative Report Filed: 12/21/2020 8:04 AM Note Text: OPERATIVE/PROCEDURE REPORT LOG ID: [id number] SURGERY/PROCEDURE DATE: 12/20/2020 INCISION/PROCEDURE START TIME: 1:19 PM INCISION CLOSE/PROCEDURE END TIME: 3:54 PM SURGEON(S)/PROCEDURA LIST(S) AND FENCE INSTALLER FOREMAN(S): Surgeon(s) and Role: * Rex Meredith Jr., MD - Primary Physician Mounter Sousaphones: Wilver Newberry PA-C; Deisy Gonzalez PA-C - Aline was statistical assistant; his assistance consisted of assistance with positioning, retraction and closing the wound SURGERY/PROCEDURE(S) : Left total knee revision ANESTHESIA: Spinal SURGERY/PROCEDURE DETAILS: Left total knee revision PRE-OP/PRE-PROCEDURE DIAGNOSIS: 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 The femur consisted of a size [...] with n (more content not included)... Normal [facility] SURGICAL PATHOLOGYon 021 SURGICAL PATHOLOGY Specimen originated from [facility] Specimen #: [id number] Submitting Physician: REX MEREDITH JR, MD FINAL DIAGNOSIS Hardware, left knee, removal - Unremarkable hardware (gross examination only). APH/KVB/lbk 12/21/2020 Gaston Florez M.D. (Electronic Signature) SPECIMEN SUBMITTED A: REMOVED HARDWARE FROM LEFT KNEE CLINICAL DATA FAILURE OF TOTAL KNEE REPLACEMENT, INITIAL ENCOUNTER ([facility]); LEFT TOTAL KNEE REVISION GROSS DESCRIPTION A. [...] on the polyethylene articular insert saying LEFT [id number] . No tissue is present. No sections are submitted. The specimen is for gross examination only. The specimen is reviewed by Dr. Florez. Gross examination performed at [facility], [facility] [place] [address] KVB/lbk 12/21/2020 Date of Report: 12/22/2020 Date of Procedure: 12/20/2020 Date of Receipt: 12/20/2020 Submitted by: REX MEREDITH JR, MD Location: [facility] Diagnostic interpretation performed at [facility], [address] [place] [address], [place] [address]. CLIA Number: [id number] [facility] Wound Culture/Stainon 2020 Wound Culture/Stain Sp. Request/Comment: - Specimen received in anaerobic transport medium. Smear Result - No organisms seen No Polymorphonuclear Leukocytes Culture Result - No growth 2 days [facility] Comment on above: Performed By: #### W CUL ####[facility] [address] [place], [place] [address]FpzlfwtmfOhio [facility] [address] [place], [place] [phone] Type and SCR (30D)on 021 ABO/RH(D) Positive Normal [facility] Comment on above: Performed By: #### T SCR30 ####[facility] [phone] Large Joint Arthro/Inj: R kn ee joint [facility] Vital Signs Date Time Vital Sign Value Performing Clinician Faci lity 06-27-2023 10:58-0500 Diastolic blood pressure 96 mm[Hg] DIANA CEJA [facility] 06-27-2023 10:58-0500 Mean blood pressure 107 mm[Hg] DIANA CEJA [facility] 06-27-2023 10:58-0500 Systolic blood pressure 130 mm[Hg] DIANA CEJA [facility] 06-27-2023 10:47-0500 Diastolic blood pressure 92 mm[Hg] DIANA CEJA [facility] 06-27-2023 10:47-0500 Mean blood pressure 104 mm[Hg] DIANA CEJA [facility] 06-27-2023 10:47-0500 Systolic blood pressure 128 mm[Hg] DIANA CEJA [facility] 06-27-2023 10:29-0500 Blood Pressure Location DIANA CEJA [facility] 06-27-2023 10:29-0500 Body temperature 97.88 [degF] DIANA CEJA [facility] 06-27-2023 10:29-0500 Diastolic blood pressure 64 mm[Hg] DIANA MOODYANNIAKACEY [facility] 06-27-2023 10:29-0500 Heart rate 77 /min DIANA SULTAANMAMTAKACEY [facility] 06-27-2023 10:29-0500 Respiratory rate 24 /min DIANA CEJA [facility] 06-27-2023 10:29-0500 SaO2% (BldA) [Mass fraction] 98 % DIANA CEJA [facility] 06-27-2023 10:29-0500 Systolic blood pressure 116 mm[Hg] DIANA MOODYANNIAKACEY [facility] 06-26-2023 20:47-0500 Diastolic blood pressure 104 mm[Hg] Everardo Perera [facility] 06-26-2023 20:47-0500 Heart rate 98 /min Everardo Perera [facility] 06-26-2023 20:47-0500 Mean blood pressure 125 mm[Hg] Everardo Dilma [facility] 06-26-2023 20:47-0500 Respiratory rate 18 /min Everardo Dilma [facility] 06-26-2023 20:47-0500 SaO2% (BldA) [Mass fraction] 97 % Everardo Dilma [facility] 06-26-2023 20:47-0500 Systolic blood pressure 166 mm[Hg] Everardo Dilma [facility] 06-26-2023 20:25-0500 Diastolic blood pressure 119 mm[Hg] Everardo Dilma [facility] 06-26-2023 20:25-0500 Heart rate 92 /min Everardo Dilma [facility] 06-26-2023 20:25-0500 Hourly Rounding Everardo Dilma [facility] 06-26-2023 20:25-0500 Mean blood pressure 139 mm[Hg] Everardo Dilma [facility] 06-26-2023 20:25-0500 Respiratory rate 21 /min Everardo Dilma [facility] 06-26-2023 20:25-0500 SaO2% (BldA) [Mass fraction] 97 % Everardo Dilma [facility] 06-26-2023 20:25-0500 Systolic blood pressure 180 mm[Hg] Everardo Dilma [facility] 06-26-2023 20:17-0500 Diastolic blood pressure 119 mm[Hg] Everardo Dilma [facility] 06-26-2023 20:17-0500 Systolic blood pressure 180 mm[Hg] Everardo Dilma [facility] 06-26-2023 19:25-0500 Heart rate 86 /min Everardo Dilma [facility] 06-26-2023 19:25-0500 Hourly Rounding Everardo Dilma [facility] 06-26-2023 19:25-0500 Mean blood pressure 151 mm[Hg] Everardo Dilma [facility] 06-26-2023 19:25-0500 Promise to Return Everardo Dilma [facility] 06-26-2023 19:25-0500 Respiratory rate 17 /min Everardo Dilma [facility] 06-26-2023 19:25-0500 SaO2% (BldA) [Mass fraction] 98 % Everardo Perera [facility] 06-26-2023 18:37-0500 Body temperature 98.24 [degF] Everardo Perera [facility] 06-26-2023 18:37-0500 Heart rate 99 /min Everardo Perera [facility] 06-26-2023 18:37-0500 Respiratory rate 16 /min Everardo Perera [facility] 03-05-2023 15:25-0400 Diastolic blood pressure 96 mm[Hg] Morena Soham [facility] 03-05-2023 15:25-0400 Mean blood pressure 111 mm[Hg] Morena Soham [facility] 03-05-2023 15:25-0400 Systolic blood pressure 140 mm[Hg] Morena Soham [facility] 03-05-2023 15:09-0400 Diastolic blood pressure 116 mm[Hg] Morena Soham [facility] 03-05-2023 15:09-0400 Mean blood pressure 127 mm[Hg] Morena Soham [facility] 03-05-2023 15:09-0400 Systolic blood pressure 149 mm[Hg] Morena Soham [facility] 03-05-2023 15:06-0400 Blood Pressure Location Morena Soham [facility] 03-05-2023 15:06-0400 Body temperature 97.52 [degF] Morena Rousseau [facility] 03-05-2023 15:06-0400 Diastolic blood pressure 103 mm[Hg] Morena Hinesmetz [facility] 03-05-2023 15:06-0400 Heart rate 73 /min Morena Hinesmetz [facility] 03-05-2023 15:06-0400 Systolic blood pressure 142 mm[Hg] Morena Rousseau [facility] 02-05-2023 13:54-0400 Blood Pressure Location Parker SALAM [facility] 02-05-2023 13:54-0400 Diastolic blood pressure 114 mm[Hg] Parker SALAM [facility] 02-05-2023 13:54-0400 Heart rate 64 /min Parker SALAM [facility] 02-05-2023 13:54-0400 Respiratory rate 21 /min Parker SALAM [facility] 02-05-2023 13:54-0400 SaO2% (BldA) [Mass fraction] 100 % Parker SALAM [facility] 02-05-2023 13:54-0400 Systolic blood pressure 155 mm[Hg] Parker SALAM [facility] 02-05-2023 13:44-0400 Blood Pressure Location Parker SALAM [facility] 02-05-2023 13:44-0400 Diastolic blood pressure 94 mm[Hg] Parker SALAM [facility] 02-05-2023 13:44-0400 Heart rate 62 /min Parker SALAM [facility] 02-05-2023 13:44-0400 Respiratory rate 19 /min Parker SALAM [facility] 02-05-2023 13:44-0400 SaO2% (BldA) [Mass fraction] 99 % Parker SALAM [facility] 02-05-2023 13:44-0400 Systolic blood pressure 149 mm[Hg] Parker SALAM [facility] 02-05-2023 13:39-0400 Blood Pressure Location Parker SALAM [facility] 02-05-2023 13:39-0400 Diastolic blood pressure 94 mm[Hg] Parker SALAM [facility] 02-05-2023 13:39-0400 Heart rate 64 /min Parker SALAM [facility] 02-05-2023 13:39-0400 Respiratory rate 12 /min Parker SALAM [facility] 02-05-2023 13:39-0400 SaO2% (BldA) [Mass fraction] 99 % Parker SALAM [facility] 02-05-2023 13:39-0400 Systolic blood pressure 138 mm[Hg] Parker SALAM [facility] 02-05-2023 13:29-0400 Body temperature 97.16 [degF] Parker SALAM [facility] 02-05-2023 13:25-0400 Respiratory rate 18 /min Parker SALAM [facility] 02-05-2023 13:20-0400 Respiratory rate 18 /min Parker SALAM [facility] 02-05-2023 13:15-0400 Respiratory rate 16 /min Parker SALAM [facility] 02-05-2023 12:18-0400 Body temperature 97.88 [degF] Parker SALAM [facility] 12-25-2022 10:32-0400 Body height 167.6 cm Marko Torreuh PA-C Work Phone: [facility] 12-25-2022 10:32-0400 Body weight 106.05 kg Marko Bandsuh PA-C Work Phone: [facility] 12-25-2022 10:32-0400 Diastolic blood pressure 78 mm[Hg] Marko Bandsuh PA-C Work Phone: [facility] 12-25-2022 10:32-0400 Heart rate 60 /min Marko Bandsuh PA-C Work Phone: [facility] 12-25-2022 10:32-0400 Systolic blood pressure 112 mm[Hg] Marko Bandsuh PA-C Work Phone: [facility] 12-18-2022 09:27-0400 Blood Pressure Location Parker SALAM [facility] 12-18-2022 09:27-0400 Diastolic blood pressure 85 mm[Hg] Parker SALAM [facility] 12-18-2022 09:27-0400 Heart rate 66 /min Parker SALAM [facility] 12-18-2022 09:27-0400 Respiratory rate 16 /min Parker SALAM [facility] 12-18-2022 09:27-0400 SaO2% (BldA) [Mass fraction] 96 % Parker SALAM [facility] 12-18-2022 09:27-0400 Systolic blood pressure 121 mm[Hg] Parker SALAM [facility] 10-25-2022 14:31-0400 Blood Pressure Location ANA SIDELL [facility] 10-25-2022 14:31-0400 Body temperature 98.06 [degF] ANA SIDELL [facility] 10-25-2022 14:31-0400 Diastolic blood pressure 82 mm[Hg] ANA SIDELL [facility] 10-25-2022 14:31-0400 Heart rate 81 /min ANA SIDELL [facility] 10-25-2022 14:31-0400 SaO2% (BldA) [Mass fraction] 98 % ANA SIDELL [facility] 10-25-2022 14:31-0400 Systolic blood pressure 144 mm[Hg] ANA SIDELL [facility] 08-08-2022 15:51-0500 Diastolic blood pressure 97 mm[Hg] Rita Stanislaw [facility] 08-08-2022 15:51-0500 Mean blood pressure 111 mm[Hg] Mohamed Stanislaw [facility] 08-08-2022 15:51-0500 Systolic blood pressure 139 mm[Hg] Mohamed Stanislaw [facility] 08-08-2022 15:39-0500 Blood Pressure Location Mohamed Stanislaw [facility] 08-08-2022 15:39-0500 Diastolic blood pressure 94 mm[Hg] Mohamed Stanislaw [facility] 08-08-2022 15:39-0500 Heart rate 72 /min Rita Dover [facility] 08-08-2022 15:39-0500 SaO2% (BldA) [Mass fraction] 98 % Rita Dover [facility] 08-08-2022 15:39-0500 Systolic blood pressure 137 mm[Hg] Rita Dover [facility] 05-16-2022 14:27-0500 Blood Pressure Location Rita Dover [facility] 05-16-2022 14:27-0500 Diastolic blood pressure 86 mm[Hg] Rita Dover [facility] 05-16-2022 14:27-0500 Heart rate 71 /min Rita Dover [facility] 05-16-2022 14:27-0500 SaO2% (BldA) [Mass fraction] 98 % Rita Dover [facility] 05-16-2022 14:27-0500 Systolic blood pressure 120 mm[Hg] Rita Dover [facility] 11-06-2021 13:52-0400 Body temperature 98.42 [degF] [facility] 11-06-2021 13:52-0400 Diastolic blood pressure 90 mm[Hg] [place] [facility] 11-06-2021 13:52-0400 Heart rate 59 /min [facility] 11-06-2021 13:52-0400 SaO2% (BldA) [Mass fraction] 96 % [facility] 11-06-2021 13:52-0400 Systolic blood pressure 120 mm[Hg] Levon Amayabriannajose [facility] Encounters Encounter Date Encounter Type Care Provider Facility Start: 07-18-2023 End: 07-18-2023 Patient encounter procedure DIANA CEJA [facility] Start: 06-27-2023 End: 06-28-2023 ambulatory CAMERA SUPERVISOR-C DIANA CEJA Facility:[facility] Start: 06-27-2023 End: 06-27-2023 Patient encounter procedure DIANA CEJA [facility] [place] Start: 06-26-2023 End: 06-26-2023 Emergency department patient visit Everardo Perera [facility] Start: 06-26-2023 End: 06-26-2023 Emergency department patient visit Everardo Perera [facility] Start: 06-26-2023 End: 06-27-2023 ambulatory SELF REFERRAL Facility[place] Start: 06-26-2023 End: 06-26-2023 Patient encounter procedure Everardo Davis [facility] Start: 06-05-2023 End: 06-06-2023 ambulatory Morena Rousseau [facility] Start: 06-05-2023 End: 06-05-2023 Patient encounter procedure Morena A Soham [facility] Start: 03-05-2023 End: 03-06-2023 ambulatory Morena A Soham [facility] Start: 03-05-2023 End: 03-05-2023 Patient encounter procedure Morena A Soham [facility] Start: 02-05-2023 End: 02-06-2023 ambulatory [facility] Facility[facility] Start: 02-05-2023 End: 02-05-2023 Patient encounter procedure Parkervictor manuel MARTIN [facility] Start: 12-25-2022 End: 12-25-2022 ambulatory MARKO TORRE Facility:[facility] Start: 12-25-2022 End: 12-25-2022 Patient encounter procedure Marko Torre PA-C Work Phone: Orthopedics Comment on above: S/P revision of tota l knee, left (Primary Dx); Primary osteoarthritis of right knee Start: 12-18-2022 End: 12-19-2022 ambulatory Parker [facility] Facility:[facility] Start: 12-18-2022 End: 12-18-2022 [facility] Start: 12-16-2022 End: 12-17-2022 ambulatory Sri PUGA Facility[facility] Start: 12-16-2022 End: 12-17-2022 ambulatory Sri PUGA Facility:[facility] Start: 11-22-2022 End: 11-23-2022 ambulatory ANA CHÁVEZ Facility:[facility] Start: 11-03-2022 End: 11-04-2022 ambulatory Kimmy Scott Facility:[facility] Start: 10-28-2022 ambulatory Keith CHUNG Facility: [facility] Start: 10-25-2022 End: 10-26-2022 ambulatory ANA W SAIRA Facility:[facility] Start: 10-25-2022 End: 10-25-2022 Patient encounter procedure ANA CHÁVEZ [facility] [place] Start: 09-02-2022 End: 09-02-2022 ambulatory Rita [place] Facility[facility] Start: 09-02-2022 End: 09-02-2022 Admission to same day surgery center Rita Dover [facility] Start: 08-08-2022 End: 08-09-2022 ambulatory Apolloshamir [place] Facility[place] Start: 08-08-2022 End: 08-08-2022 Patient encounter procedure Rita Dover [facility] Start: 05-29-2022 End: 05-29-2022 Patient encounter procedure Jerel Banks [facility] Start: 05-20-2022 End: 05-20-2022 Patient encounter procedure Jerel Banks [facility] Start: 05-16-2022 End: 05-16-2022 Patient encounter procedure Rita Dover [facility] Start: 02-22-2022 End: 02-22-2022 Orders Only Augustus Pereira MD Work Phone: Orthopaedics Comment on above: S/P revision of tota l knee, left (Primary Dx) Start: 11-14-2021 End: 11-14-2021 Patient encounter procedure Levon Webber [facility] Start: 11-06-2021 End: 11-06-2021 Patient encounter procedure Levon Webber [facility] Start: 11-06-2021 End: 11-06-2021 Patient encounter procedure [facility]arg[facility] Procedures Date Procedure Procedure Detail [...] above: Performed By: #### [id number] ####Mele Maldonado [id number] [address] [phone] Start: 10-05-2020 Injection of sclerosing agent Levon swanson Start: 11-18-2016 left TKR Levon Webber Start: 08-18-2015 knee arthroscope with partial medial meniscectomy and excision of loose body 2 Levon Webber Comment on above: left Start: 01-27-2012 H/O: surgery S/P repair of recurrent ventral hernia Augustus Preeira MD Work Phone: section Levon huang Cholecystectomy Levon garcia History of operative procedure on knee History of left knee replacement( Confirmed ) Levon Webber incisional hernia repair 3 R omaira Akbar Comment on above: x2 with mesh Plan of Treatment Date Care Activity Detail Author Start: 12-26-2023 BP CONTROLLED (<130/80) BP CONTROLLE D (<130/80) [facility] Start: 12-22-2023 DIABETES SCREEN DIABETES SCREEN [facility] Start: 07-07-2022 DEPRESSION ASSESSMENT DEPRESSION ASS ESSMENT [facility] Start: 03-07-2022 Influenza vaccination INFLUENZA (#1) [facility] Start: 12-12-2021 COVID-19 VACCINE (4 - Booster for Pfizer series) COVID-19 VACCINE (4 - Booster for Pfizer series) [facility] Start: 12-12-2021 SHINGRIX VACCINE (1 of 2) SHINGRIX V ACCINE (1 of 2) [facility] Start: 09-10-2021 COVID-19 VACCINE (4 - Booster for Pfizer series) COVID-19 VACCINE (4 - Booster for Pfizer series) [facility] Start: 12-12-2016 COLOGUARD (FIT-DNA) COLOGUARD (FIT-D NA) [facility] Start: 12-12-2016 Colonoscopy COLONOSCOPY [facility] Start: 12-12-2016 COLORECTAL CANCER SCREENING COLORECTAL CANCER SCREENING [facility] Start: 12-12-[address] COLONOGRAPHY [facility] Start: 12-12-2016 FECAL OCCULT BLOOD FECAL OCCULT BLOO D [facility] Start: 12-12-2016 LIPID SCREEN LIPID SCREEN [facility] Start: 12-12-2016 SIGMOIDOSCOPY SIGMOIDOSCOPY [facility] Start: 2011 Mammography MAMMOGRAM [facility] Start: 12-12-2001 HPV TESTING HPV TESTING [facility] Start: 12-12-1992 PAP TESTING PAP TESTING [facility] Start: 12-12-1990 Urine microalbumin profile DTAP,TDAP ,TD (1 - Tdap) [facility] Start: 12-12-1989 ANNUAL PCP TEAM SR. MANAGER CORPORATE COMMUNICATIONS BARBARA DISEASE VISIT ANNUAL PCP TEAM CHRONIC DISEASE VISIT [facility] Start: 12-12-1989 BP CONTROLLED (<130/80) BP CONTROLLE D (<130/80) [facility] Start: 12-12-1989 HEPATITIS C SCREENING HEPATITIS C SC REENING [facility] Start: 12-12-1989 HIV SCREENING HIV SCREENING [facility] Start: 12-12-1989 SPIROMETRY SPIROMETRY [facility] Start: 1983 Adult depression scr eening assessment DEPRESSION SCREENING [facility] Start: 12-12-1977 PNEUMOCOCCAL (1 - PCV) PNEUMOCOCCAL (1 - PCV) [facility] Start: 1971 HEPATITIS B (1 of 3 - 3-dose series) HEPATITIS B (1 of 3 - 3-dose series) [facility] Immunizations Immunization Date Immunization Notes Care Provider Fa cility 03-11-2023 influenza virus vaccine, unspecified formulation Morena Rousseau [facility] 03-12-2022 influenza virus vaccine, unspecified formulation Keith CHUNG [facility] 07-16-2021 SARS-CoV-2 mRNA (dxajhthwzgv-pfjz-lrnzy se) vaccine Keith CHUNG [facility] 04-03-2021 influenza virus vaccine, unspecified formulation [facility] 09-08-2020 SARS-CoV-2 (COVID-19 ) mRNA BNT-162b2 vax [facility] 08-18-2020 SARS-CoV-2 (COVID-19 ) mRNA BNT-162b2 vax [facility] 03-07-2019 influenza virus vaccine, unspecified formulation [facility] Payers Date Payer Category Payer Unknown [id number] 2011 Unknown [id number] 2011 Unknown [id number] 1971 Unknown [id number] 2.16.8 [id number]. 1971 Unknown [id number] 2.16.8 40.1.204449.3.579.2. 1971 Unknown [id number] 2.16.8 40.1.787630.3.579.2.7 1971 Unknown [id number] 2.16.8 40.1.265702.3.579.2. 1971 Unknown [id number] 2.16.8 40.1.020656.3.579.2. 1971 Unknown [id number] 2.16.8 40.1.377892.3.579.2. 1971 Unknown [id number] 2.16.8 40.1.794089.3.579.2. 1971 Unknown [id number] 2.16.8 40.1.200361.3.579.2. 1971 Unknown [id number] 2.16.8 40.1.404232.3.579.2.727 1971 Unknown [id number] 2.16.8 40.1.290574.3.579.2.727 1971 Unknown [id number] 2.16.8 40.1.758207.3.579.2.727 1971 Unknown [id number] 2.16.8 40.1.808051.3.579.2.727 1971 Unknown [id number] 2.16.8 40.1.952585.3.579.2.727 1971 Unknown [id number] 2.16.8 40.1.330940.3.579.2.727 Social History Date Type Detail Facility Start: 11-06-2021 End: 06-27-2023 Tobacco smoking status Never smoked tobacco (finding) [facility] Comment on above: Denies Tobacco smoking status Never [facility] Comment on above: Denies Sex Assigned At Female [facility] Start: 11-19-2011 Tobacco use and exposure Smokeless tobacco non-user [facility] Start: 12-20-2020 End: 12-25-2022 Alcohol intake Current drinker of alcohol (finding) [facility] Start: 11-30-2020 History SDOH Alcohol Comment social-weekends [facility] Start: 1970 Sex Assigned At Not on file C [facility] Start: 02-12-2022 End: 02-22-2022 Exposure to SARS-CoV-2 (event) Not sure [facility] Medical Equipment Procedure Code Equipment Code Equipment Origin al Text Equipment Identifier Dates Fidencio Bn Smplx Hv Gentamicin Fd - [id number] Start: 11-18-2016 Cement Simplex P Tobramycin Bone Full Dose Radiopaque Preblend Sterile - [id number] Start: 12-20-2020 Surface 6-9 Cd Vivacit-E 11mm Articular Knee - [id number] Start: 11-18-2016 Extension Triath luisana 25mm Stem Total Stabilize Knee Femur - [id number] Start: 12-20-2020 Baseplate Person a 5d D Tivanium Tibial Cemented Stem Knee Left - [id number] Start: 11-18-2016 Restrictor Gregory rsal Cement Disposable [employer] - [id number] Start: 12-20-2020 Functional Status Date Assessment Result Facility 06-27-2023 Functional Status N/A [facility] 06-26-2023 Functional Status N/A [facility] 03-05-2023 Functional Status N/A [facility] 02-05-2023 Functional Status N/A [facility] 12-18-2022 Functional Status N/A [facility] 10-25-2022 Functional Status N/A [facility] 08-08-2022 Functional Status No [facility] 05-16-2022 Functional Status No [facility] Clinical Notes 11-18-2016 to 06-27-2023 Note [...] are safe for you. General instructions Take oggt-hwp-myrftik and prescription medicines only as told by [...] provider. Document Revised: 10/11/2020 Document Reviewed: 12/21/2019 [employer] Patient Education 2022 [employer]. 06/27/2023 12:02:19 Cough, Adult Cough, Adult Coughing [...] Follow these instructions at home: Medicines Take lvyn-btf-bjoaerr and prescription medicines only as told by [...] of a condition that needs treatment. Take aqkn-uyh-cfxupob and prescription medicines only as told by [...] provider. Document Revised: 07/12/2019 Document Reviewed: 07/12/2019 [employer] Patient Education 2022 [employer]. [facility] [place] 06-26-2023 Hospital Discharge instructions Patient Education 06/26/2023 [...] more information National Heart, Lung, and Blood [place]: www.nhlbi.nih.gov [place] [employer]: www.heart.org Contact a health care [...] provider. Document Revised: 03/07/2022 Document Reviewed: 03/07/2022 [employer] Patient Education 2022 [employer]. 06/26/2023 20:53:28 Migraine Headache Migraine Headache A [...] Follow these instructions at home: Medicines Take jbdv-oht-kekuibs and prescription medicines only as told by your health care provider. Ask your health care provider if the medicine prescribed to you: ?Requires you to avoid driving or using heavy machinery. ?Can cause constipation. You may need to take these actions to prevent or treat constipation: ?Drink enough fluid to keep your urine pale yellow. ?Take rhtm-efn-farkcjo or prescription medicines. ?Eat foods that are [...] provider. Document Revised: 10/15/2019 Document Reviewed: 08/05/2019 [employer] Patient Education 2022 [employer]. Follow Up Care 06/26/2023 18:32:26 With:Pb BAUMAN Address: [address] [place] [address] [place] [address]- [phone] Business (1) When:06/29/2023 20:47:03 Comments:Follow-up with your primary care provider in 3 to 5 days. If symptoms worsen, do not improve, or new symptoms arise please report back to emergency department for further evaluation. Continue to monitor your blood pressure, and you may start 20 mg of lisinopril daily. [facility] 03-05-2023 Hospital Discharge instructions Patient Education [...] overweight. Not getting enough exercise. Smoking. Taking dzre-gzk-kyrmrrv pain medicines, like aspirin and ibuprofen. Having [...] Follow these instructions at home: Medicines Take yrel-gai-wuygauc and prescription medicines only as told by your health care provider. If told by your health care provider, take a fiber supplement or probiotic. Constipation prevention Your condition may cause constipation. To prevent or treat constipation, you may need to: Drink enough fluid to keep your urine pale yellow. Take qhkj-wjx-cuoywgt or prescription medicines. Eat foods that are [...] provider. Document Revised: 01/20/2020 Document Reviewed: 01/20/2020 [employer] Patient Education 2022 [employer]. 03/05/2023 15:03:18 Peptic Ulcer Peptic Ulcer A [...] quitting, ask your health care provider. Take xqof-niq-pqczuob and prescription medicines only as told by your health care provider. ?Do not use mebd-uyb-nhralfc medicines in place of prescription medicines unless [...] quitting, ask your health care provider. Take wzov-bbg-pyuklsb and prescription medicines only as told by your health care provider. Do not use jyfo-kxs-zcxfhwh medicines in place of prescription medicines unless your health care provider approves. Limit your alcohol and caffeine intake. Keep all follow-up visits. This is important. This information is not intended to replace advice given to you by your health care provider. Make sure you discuss any questions you have with your health care provider. Document Revised: 02/01/2022 Document Reviewed: 02/01/2022 [employer] Patient Education 2022 [employer]. Follow Up Care 02/19/2023 08:31:55 With:Morena Rousseau CNP Address: When:3 months [facility] 02-06-2023 Note [id number]#1.00CD:127 [facility] 02-05-2023 Hospital Discharge instructions Patient Education 02/05/2023 [...] what activities are safe for you. Take bxmk-avb-unucnzb and prescription medicines only as told by [...] provider. Document Revised: 04/28/2020 Document Reviewed: 11/23/2018 [employer] Patient Education 2022 [employer]. 02/05/2023 13:36:26 Colonoscopy, Care After Surgery [place] [...] unsweetened, w/added ascorbic acid 1 cup 0.5 [place] 1 cup 0.7 Vegetables Cooked Green beans 1 cup 4.0 Carrots 1/2 cup sliced 2.3 Peas 1 cup 8.8 Potato (baked, with skin) 1 medium potato 3.8 Raw [place] (with peel) 1 cucumber 1.5 Lettuce 1 [...] 8.7 Peanuts 1/2 cup [address] [facility] 2013. SEEK IMMEDIATE MEDICAL CARE IF: [...] Available at http://www.nal.usda.gov/fnic/food comp/search/. Information adapted from: [facility] Patient Information 2009 [employer] App[employer]. [employer] 2012 http://www.goviral/contents/ udcgxmbkcvoy-xslafbb-ovsxim-the-b asics 02/05/2023 13:36:13 Esophageal Dilatation Esophageal Dilatation [...] including vitamins, herbs, eye drops, creams, and tdhc-yxw-nodlixv medicines. Any problems you or family members [...] provider tells you to take them. ?Taking huqx-frm-qrhyfyw medicines, vitamins, herbs, and supplements. Follow instructions [...] home. Follow these instructions at home: Take vdea-sic-molgijp and prescription medicines only as told by [...] provider. Document Revised: 11/08/2020 Document Reviewed: 11/08/2020 [employer] Patient Education 2022 [employer]. Follow Up Care 12/18/2022 09:52:48 With:OMAR CROCKER, LIANEY Parker, [facility] Address: [address] [place] [address]. [address] [place] [address] When: Unknown Comments:Call for any problems. Office will call to schedule follow up appointment [facility] 02-05-2023 Evaluation + Plan note Extrac mariposa from: Title:ANES Post General Author:Frank Adams DO. Date:02/05/23 Plan Transfer/Discharge: Patient exhibiting no signs of N/V. Hydration status is adequate. Extracted from: Title:Bryan Basic PRE Author:Ronny Adams DO. Date:02/05/23 Plan [place] Society of Anesthesiologists (ASA) physical status classification: Class II. Anesthetic Preoperative Plan: Anesthesia General. [facility]06-21-2023 NoteHNO ID: [id number] Author: Marko Cordova PA-C Service: ? Author Type: Physician Mounter Sousaphones Type: Progress Notes Filed: 12/25/2022 12:05 PM [...] knee joint Informed Consent Consent Obtained: Verbal [place] Protocol A moment to CARE was completed. [...] Greater (Aleve) Physical The (more content not included)...[facility]06-21-2023 NoteHNO ID: [id number] Author: Katiuska Marina RT(R) Service: ? Author [...] BY: RT Lizbeth(R) December 25, 2022 10:24 [facility]06-21-2023 History of Present illness Narrative* Marko Cordova [...] knee joint Informed Consent Consent Obtained: Verbal [place] Protocol A moment to CARE was completed. [...] 2022 TIME: 10:36 AM [facility] Note [id number]:127[facility] 09-02-2022 Hospital Discharge instructions Patient Education 09/02/2022 [...] concerns, call to speak with your doctor. [facility]: [phone]. Follow Up Care 08/13/2022 15:47:23 With:Rita Dover Address: [address] [place], [place] [id number] Business (1) When:09/30/2022 10:30:00 Comments:Keep scheduled appointment [facility]08-19-2022 NoteHNO ID: [id number] Author: Augustus Pereira MD Service: ? Author [...] Recommend conservative treatment with activity modification, ice, xvfh-gus-bnjvhyy NSAID. If this becomes more significant she will return for follow-up Follow-up as symptoms dictate Augustus Pereira [facility]08-19-2022 NoteHNO ID: [id number] Author: RT Brynn(R) Service: ? Author Type: [...] Margi Moore, RT(R) February 22, 2022 2:[address] [facility]05-03-2022 Evaluation + Plan note Future Scheduled Tests Laboratory* CBC w/ Indices 11/06/21 [facility] 05-03-2022 Hospital Discharge instructions Follow Up Care 11/06/2021 11:33:21 With:Akbar GARCES, DEJUAN Philip, PED Address: [address] [place] [phone] When:1 month only if needed [facility] 06-17-2021 NoteHNO ID: [id number] Author: Stanley Bunch PA-C Service: Orthopaedic Surgery Author Type: Physician Mounter Sousaphones Type: Progress Notes Filed: 12/21/2020 9:30 AM [...] 1707 -- 12/21/20 0000 graduated compression stockings ([place], [place]) 12/20/20 1715 graduated compression stockings ([place]) 12/20/20 1715 activity - mobilize patient ([place]) VTE Prophylaxis: VTE prophylaxis appropriate POST OPERATIVE COMPLICATIONS: Complicated by: uneventful/none SIGNATURE: Stanley Bunch PA-C PATIENT NAME: Jessenia Wing DATE: 12/21/2020 TIME: 9:30 AM PAGER/CONTACT #: [phone] NoteHNO ID: [id number] Author: Zeke Prajapati II, DO Service: Anesthesiology [...] December 20, 2020 TIME: 12:30 PM CSN: [id number] NoteHNO ID: [id number] Author: Zkee Prajapati II, DO Service: Anesthesiology Author Type: [...] December 20, 2020 TIME: 12:02 PM CSN: [id number] Evaluation + Plan note Future Appointments Appointment Date:07/18/2023 08:00:00 AM Scheduled Provider: Location:[facility] Appointment Type:CV Echo (FT) Appointment Date:08/05/2023 01:00:00 PM Scheduled Provider:Eyad ARORA MD Location:[facility] Appointment Type:Cardiology New Patient (FT) Future Scheduled Tests Radiology* Echo w/ Saline Bubbles 07/18/23 [facility] 05-15-2017 History of Past illness Narrative* Problem Noted Date Resolved Date S/P left unicompartmental knee replacement 11/1803/18/2017 documented as of this encounter (statuses as of 02/22/2022) [facility]05-15-2017 History of Past illness Narrative* Problem Noted Date Resolved Date S/P left unicompartmental knee replacement 11/1803/18/2017 documented as of this encounter (statuses as of 12/25/2022) [facility] Future Appointments Appointment Date:05/29/2022 09:45:00 AM Scheduled Provider:Jerel Banks DPM [facility] Appointment Type:WC Follow Up Visit (FT) Future Scheduled Tests Radiology* US LE Venous Duplex Insufficiency Bilat 05/17/22 [facility] Future Appointments Appointment Date:06/10/2022 03:00:00 PM Scheduled Provider: [facility] Type:US Duplex Procedures (FT) Future Scheduled Tests Radiology* US LE Venous Duplex Insufficiency Bilat 06/10/22 [facility] Future Appointments Appointment Date:09/30/2022 10:30:00 AM Scheduled Provider:Rita Dover MD Location[facility] Appointment Type:Vascular Follow Up (FT) [facility] Future Appointments Appointment Date:10/31/2022 03:30:00 PM Scheduled Provider:Rita Dover MD Location[facility] Appointment Type:Vascular Follow Up (FT) Appointment Date:11/22/2022 04:20:00 PM Scheduled Provider:ANA CHÁVEZ CNP Location:[facility] Appointment Type:[facility] Evaluation + Plan note Future Appointments Appointment Date:02/05/2023 12:50:00 PM Scheduled Provider: Location:[facility] Appointment Type:Surgery FT [facility] Evaluation + Plan note Future Appointments Appointment Date:06/05/2023 03:20:00 PM Scheduled Provider:Morena Rousseau CNP Location[facility] Appointment Type:BADH Follow Up [facility] Evaluation + Plan note Future Appointments Appointment Date:08/05/2023 01:00:00 PM Scheduled Provider:Eyad ARORA MD [facility] Type:[facility]iology New Patient ([facility]) [facility] Diagnosis S/P revision of total knee, left- Primary documented in this encounter [facility]* Diagnosis S/P revision of total knee, left- Primary Primary osteoarthritis of right knee Primary localized osteoarthrosis, lower leg [facility] Narrative No data available for this section [facility] Hospital Discharge instructions No data available for this section [facility] No data available for this section [facility] (narrative)* Diagnostic Procedure Only (Routine) - Closed Specialty Diagnoses / Procedures Referred By Mandeep sellers Referred To Contact XR IMAGING Diagnoses S/P revision of total knee, left Procedures XR KNEE POST OP 3V AP/LAT/MERCHANT LEFT RADIOLOGIC EXAMINATION KNEE 3 VIEWS Augustus Pereira MD [address] [place] [address] Xr Imaging Referral ID Status Reason Start Date Expiration Date V isits Requested Visits Authorized [id number] Closed Auto-Generate d Referral 02/22/2022 03/24/2023 1 1 [facility] Summary Purpose Family History No Family History [...] Marko Cordova PA-C [address] [place] [address] [facility] [place] [address] [place] [address] Referral ID Status Reason Start Date Expiration Date Visits Requested Visits Authorized [id number] Pending Review Auto-Generat ed Referral 12/25/2022 12/25/2023 [...] section and content) DATE CREATED AUTHOR 01/05/2021 [facility] DATE CREATED AUTHOR AUTHOR'S ORGANIZ ATION 12/26/2022 [facility] DATE CREATED AUTHOR AUTHOR'S ORGANIZ ATION 06/28/2023 [facility] Source Comments (unrecognize d section and content) In the event this informatio n is protected by the Federal Confidentiality of Alcohol and Drug Abuse Patient Records regulations: The Federal rules restrict any use of the information to criminally investigate or prosecute any alcohol or drug abuse patient.[facility] the event this information is protected by the Federal Confidentiality of Alcohol and Drug Abuse Patient Records regulations: The Federal rules restrict any use of the information to criminally investigate or prosecute any alcohol or drug abuse patient.[facility] Patient Care team informatio n (unrecognized section and content) Personnel Name: Pb BAUMAN DO Address: Address: [address] [place], [place] [id number] Personnel Name: Pb BAUMAN DO Address: Address: [address] [place], [place] [address] Personnel Name: Pb BAUMAN DO Address: Address: [address] [place], [place] [address] Personnel Name: Pb BAUMAN DO Address: Address: [address] [place], [place] [address] Personnel Name: Pb BAUMAN DO Address: Address: [address] [place] [address] Personnel Name: Pb BAUMAN DO Address: Address: [address] [place], [place] [address] Personnel Name: Pb BAUMAN DO Address: Address: [address] [place], [place] [address] Personnel Name: Pb BAUMAN DO Address: Address: [address] [place] [address] [place] Personnel Name: Pb BAUMAN DO Address: Address: [address] [place] [address]- [place] Personnel Name: Pb BAUMAN DO Address: Address: [address] [place] [address]- [place] Personnel Name: Pb BAUMAN DO Address: Address: [address] [facility] [place] [address] [place] Personnel Name: Pb BAUMAN DO Address: Address: [address] [place] [address]- Personnel Name: DIANA MOYER Address: Address: [address] [place] [address]- Personnel Name: DIANA MOYER Address: Address: [address] [place] [address] [address] [place] [address]- Reason for Visit (unrecogniz ed section and [...] BE BASED ON THE PRIMARY CLINICAL RECORDS. [facility] [employer] [facility] provides no warranty or guarantee of the accuracy or completeness of information in this document.
== END 2023-08-11 07:26 | disposition home or self-care (01) ==
LOC: VC 07:25
PROVIDERS: PCP Radiology Diagnostic Radiology; Visit Provider Radiology Diagnostic Radiology
DX: I80.01 Phlebitis and thrombophlebitis of superficial vessels of right lower extremity (principal)
CPT/HCPCS: 93971; G0463

== ENCOUNTER 2023-08-22 07:24 | Outpatient (OUT) | payer OTHER, BC, SELFPAY ==
--- NOTE | 2023-08-22 07:27 | VEIN_ITS ---
[address] [address] Patient Name: LOREN WING MRN: [id number] date: 1970 Sex: F Assigned Patient Location: Current Patient Location: Accession/Order Number: [id number] Exam Date: 08/22/2023 07:30 Report Date: 08/22/2023 08:30 At the request of: PREMA HAWKINS Procedure: VC Endovenous Perf Ablation RT EXAMINATION: VC Endovenous Perf Ablation RT COMPARISON: INDICATIONS: Pain due to varicose veins of bilateral legs I83.813 OPERATIVE REPORT: Diagnosis: Superficial venous reflux, incompetent perforating veins Procedure: Endovenous laser ablation of the right door machine operator(s) Procedure: The patient was positioned supine on the table and the leg was prepped and draped to allow for visualization during venous access. A sterile cover was draped over a 16 mhz ultrasound probe. Venous mapping was performed prior to the procedure noting location and size of vessel(s). Chuck Wagon Driver vein 1: Mid - medial lower right leg. The diameter of the vein ranged from 4.6 mm's below the muscular fascia to 4.6 mm's at the entry point. Using a 30 gauge needle the entry site was anesthetized with 0.5 cc of 1% buffered lidocaine. Access was gained percutaneously, with a 21-gauge needle, into the door machine operator vein under ultrasound guidance. The needle was advanced into the desired position and the pre-measured 400-micron fiber was then inserted into the needle and locked in place. The position of the fiber was imaged with ultrasound guidance. The fiber tip was visualized to be 10 mm from the deep vessel. An anesthetic solution of 4 cc 1% buffered lidocaine was delivered along the course of the vein under ultrasound guidance using a syringe. A final positioning check of the laser fiber tip was performed. The laser was activated by means of a foot-pedal and the fiber and needle were withdrawn together in accordance to the desired joules per treatment area/spot weld. 3 areas/spot welds were performed, and the total number of joules delivered was 179. The total time of energy delivery was 23 seconds. A duplex ultrasound revealed compressibility and flow of the deep system immediately after the procedure. Hemostasis of the access site was achieved and dressed. A 20-30 mm compression stocking over coban was placed on the treated leg. Post-Op instructions were given, and a follow-up appointment was made. Chuck Wagon Driver vein 2: Distal medial lower right leg. The diameter of the vein ranged from 4.8 mm's below the muscular fascia to 4.8 mm's at the entry point. Using a 30 gauge needle the entry site was anesthetized with 0.5 cc of 1% buffered lidocaine. Access was gained percutaneously, with a 21-gauge needle, into the door machine operator vein under ultrasound guidance. The needle was advanced into the desired position and the pre-measured 400-micron fiber was then inserted into the needle and locked in place. The position of the fiber was imaged with ultrasound guidance. The fiber tip was visualized to be 10 mm from the deep vessel. An anesthetic solution of 4.5 cc 1% buffered lidocaine was delivered along the course of the vein under ultrasound guidance using a syringe. A final positioning check of the laser fiber tip was performed. The laser was activated by means of a foot-pedal and the fiber and needle were withdrawn together in accordance to the desired joules per treatment area/spot weld. 3 areas/spot welds were performed, and the total number of joules delivered was 178. The total time of energy delivery was 22 seconds. A duplex ultrasound revealed compressibility and flow of the deep system immediately after the procedure. Hemostasis of the access site was achieved and dressed. A 20-30 mm compression stocking over coban was placed on the treated leg. Post-Op instructions were given, and a follow-up appointment was made. CONCLUSION: 1. Technically successful endovenous laser ablation of 2 door machine operator veins Electronically authenticated by: GABY BRIONES Date: 08/22/2023 08:30
--- OUTSIDE RECORDS SUMMARY | 2023-08-22 07:27 | XMS_ITS | CCD ---
Author Name Unknown Address [address] [place] [address] Organization [facility] Care Team Providers Care Senior Software Analyst Name Role Phone Pb BAUMAN Primary Care Physician Unavailable Primary Care Provider Unavailabl e Unavailable Primary Care Provider Unavailabl e MARKO CORDOVA Attending Unavailable MARKO CORDOVA Referring Unavailable AUGUSTUS PEREIRA Attending Unavailable AUGUSTUS PEREIRA Referring Unavailable Pb BAUMAN Primary Care Physician DIANA CEJA Primary Care Physician Keith CHUNG Attending Unavailable ANA CHÁVEZ Attending Unavailable ROLANDO CEJA-C DIANA Grady Attending Unav ailable ANA CHÁVEZ Attending Unavailable Stanislaw, Rita FJohn Admitting Unavailable Stanislaw, Rita Long Attending Unavailable Stanislaw, Mohamed FJohn Referring Unavailable SALAMIsiaher Admitting Unavailable SALAMKeith Attending Unavailable VERONICAAMIsiaher Referring Unavailable Sri PUGA [...] ,dust, mold 1 Allergy to substance hayfever [facility] Comment on above: hayfever (1 source) Seasonal allergy Allergy to substance 3 Itching [facility] (1 source) seasonal ,dust, mold; Translations: [seasonal ,dust, mold] Propensity to adverse reactions (disorder) [facility] (1 source) No Known Medication Allergies; Translations: [No Known Medication Allergies] Propensity to adverse reactions (disorder) [facility] NEGATED: Highlighted row has been ruled out! (1 source) Drug allergy [facility] NEGATED: Highlighted row has been ruled out! (1 source) Drug allergy [facility] NEGATED: Highlighted row has been ruled out! (1 source) Drug allergy [facility] NEGATED: Highlighted row has been ruled out! (1 source) Drug allergy [facility] NEGATED: Highlighted row has been ruled out! (1 source) Drug allergy [facility] NEGATED: Highlighted row has been ruled out! (1 source) Drug allergy [facility] NEGATED: Highlighted row has been ruled out! (1 source) Drug allergy [facility] NEGATED: Highlighted row has been ruled out! (1 source) Drug allergy [facility] NEGATED: Highlighted row has been ruled out! (1 source) Drug allergy [facility] NEGATED: Highlighted row has been ruled out! (1 source) Drug allergy [facility] NEGATED: Highlighted row has been ruled out! (1 source) Drug allergy [facility] Medications Current Medications Medication Drug Class(es) Dates Sig (Normalized) Sig (Original) albuterol HFA 90 mcg/inh MDI (17 sources) Start: 06-27-2023 take 2 puff(s) by inhalation four times daily albuterol HFA 90 mcg/inh MDI 2 puff(s), Inhalation, QID, 1 EA, Refill(s) 2, [facility], 167, cm, 06/27/23 10:33:00 EST, Height/Length Dosing, 111, kg, 06/27/23 10:33:00 EST, Weight Dosing Start Date: 06/27/23 Status: Ordered Start: 05-25-2020 take 2 puff(s) by in halation four times daily albuterol HFA 90 mcg/inh MDI 2 puff(s), Inhalation, QID, 1 EA, Refill(s) 2, [facility] 1986, 167, cm, 05/25/20 16:49:00 EST, Height/Length Dosing, 112.5, kg, 05/25/20 16:49:00 EST, Weight Dosing Start Date: 05/25/20 Status: Ordered azithromycin 250 mg oral tablet (1 source) Macrolide Antimicrobial Start: 06-27-2023 End: 07-02-2023 Zithromax Z-Mars 250 mg oral tablet 250 mg = 1 tab(s), Oral, As Directed, as directed on package labeling, X 5 day(s), # 6 tab(s), Refills(s) 0, Pharmacy: [facility] 1985, 167, cm, 06/27/23 10:33:00 EST, Height/Length Dosing, 111, kg, 06/27/23 10:33:00 EST, Weight Dosing Start Date: 06/27/23 Stop Date: 07/02/23 Status: Ordered brompheniramine maleate 0.4 mg/ml / dextromethorphan hydrobromide 2 mg/ml / pseudoephedrine hydrochloride 6 mg/ml oral solution (2 sources) alpha-Adrenergic Agonist, Uncompetitive J-mgrygv-E-aspart ate Receptor Antagonist, Sigma-1 Agonist Start: 06-27-2023 take 2.5 mL by mouth every six hours Bromfed DM oral syrup 2.5 mL, Oral, q6hr for cold symptoms, 120 mL, Refill(s) 1, [facility], 167, cm, 06/27/23 10:33:00 EST, Height/Length Dosing, 111, kg, 06/27/23 10:33:00 EST, Weight Dosing Start Date: 06/27/23 Status: Ordered hydrALAZINE hydrochloride 10 mg oral tablet (1 source) Arteriolar Vasodilator Start: 07-04-2023 hydrALAZINE 10 mg Tab See Instructions, 1 tab PO PRN BP >140/90, # 30 tab(s), Refills(s) 2, Pharmacy: [facility] 1985, 167, cm, 06/27/23 10:33:00 EST, Height/Length Dosing, 111, kg, 06/27/23 10:33:00 EST, Weight Dosing Start Date: 07/04/23 Status: Ordered hydroCHLOROthiazide 12.5 mg oral capsule (4 sources) Thiazide Diuretic Start: 06-27-2023 take 1 capsule by mouth once daily hydrochlorothiazide 12.5 mg Cap 12.5 mg = 1 cap(s), Oral, Daily, # 30 cap(s), Refills(s) 6, Pharmacy: [facility] 1985, 167, cm, 06/27/23 10:33:00 [...] day(s), # 21 tab(s), Refills(s) 0, Pharmacy: [facility] 1985, 167, cm, 06/27/23 10:33:00 EST, Height/Length Dosing, 111, kg, 06/27/23 10:33:00 EST, Weight Dosing Start Date: 06/27/23 Stop Date: 07/03/23 Status: Ordered omeprazole 40 mg delayed release oral capsule (12 sources) Proton Pump Inhibitor Start: take 1 capsule by mouth once daily omeprazole 40 mg Cap-DR 40 mg = 1 cap(s), Oral, Daily, # 30 cap(s), Refills(s) 1, Pharmacy: [facility] 1985, 167, cm, 02/05/23 12:12:00 EDT, Height/Length Dosing, 106.5, kg, 02/05/23 12:12:00 EDT, Weight Dosing Start Date: 02/05/23 Status: Ordered Start: 01-20-2023 take 1 capsule by mo uth once daily omeprazole 20 mg Cap-DR 20 mg = 1 cap(s), Oral, Daily, # 90 cap(s), Refills(s) 3, Pharmacy: [facility] 1985, 167, cm, 12/18/22 9:30:00 EDT, Height/Length Dosing, 106.5, kg, 12/18/22 9:30:00 EDT, Weight Dosing Start Date: 01/20/23 Status: Ordered Start: 10-25-2022 take 1 capsule by [facility] once daily omeprazole 20 mg Cap-DR 20 mg = 1 cap(s), Oral, Daily, # 30 cap(s), Refills(s) 0, Pharmacy: [facility] 1985, 167, cm, 10/25/22 14:36:00 EDT, Height/Length Dosing, 110.1, kg, 10/25/22 14:36:00 EDT, Weight Dosing Start Date: 10/25/22 Status: Ordered polyethylene glycol 3350 144971 mg / potassium chloride 1480 mg / sodium bicarbonate 5720 mg / sodium chloride 77005 mg powder for oral solution (1 source) Osmotic Laxative Start: 12-18-2022 NuLYTELY Ford oral powder for reconstitution See Instructions, 1 EA, Refill(s) 0, See physician instructions prior to procedure., [facility], 167, cm, 12/18/22 9:30:00 [...] day(s), # 28 tab(s), Refills(s) 1, Pharmacy: [facility] 1985, 167, cm, 11/06/21 13:58:00 [...] use, # 1 EA, Refills(s) 5, Pharmacy: [facility] 1985, 167, cm, 06/27/23 10:33:00 EST, Height/Length Dosing, 111, kg, 06/27/23 10:33:00 EST, Weight Dosing Start Date: 06/27/23 Status: Ordered Start: 10-25-2022 take 232 ug by mouth every twelve hours fluticasone propionate 232 mcg/inh inhalation powder 232 mcg, Inhalation, q12hr, Swallowed rather than inhaled rinse mouth and throat after use, # 1 EA, Refills(s) 5, Pharmacy: [facility], 167, cm, 10/25/22 14:36:00 EDT, Height/Length Dosing, 110.1, kg, 10/25/22 14:36:00 EDT, Weight Dosing Start Date: 10/25/22 Status: Ordered sertraline 50 mg oral tablet (19 sources) Serotonin Reuptake Inhibitor Start: 01-20-2023 Zoloft 50 mg Tab 75 mg = 1.5 tab(s), Oral, Daily, # 135 tab(s), Refills(s) 3, Pharmacy: [facility] 1985, 167, cm, 06/27/23 10:33:00 EST, Height/Length Dosing, 111, kg, 06/27/23 10:33:00 EST, Weight Dosing Start Date: 06/27/23 Status: Ordered Start: 01-09-2022 Zoloft 50 mg T ab 75 mg = 1.5 tab(s), Oral, Daily, # 135 tab(s), Refills(s) 2, Pharmacy: [facility] 1985, 167, cm, 11/06/21 13:58:00 EDT, Height/Length Dosing, 91.5, kg, 11/06/21 13:58:00 EDT, Weight Dosing Start Date: 01/09/22 Status: Ordered Start: 12-28-2020 Zoloft 50 mg T ab 75 mg = 1.5 tab(s), Oral, Daily, # 135 tab(s), Refills(s) 2, Pharmacy: [facility] 1986, 167.6, cm, 12/22/20 12:51:00 EDT, Height/Length Dosing, [...] above: Take 1 tablet by carmelo th twice daily. betamethasone 3 mg/ml / betamethasone [...] and Complexity of Problems Differential Diagnosis: [] [facility] Data External documents reviewed: [] My EKG [...] MERNA In 3 days 06/29/[address] [facility] (more content not included)... Normal [facility] Comment on above: Result Comment: Elec tronically Signed By: Justin Bunch PA-C\.br\Date and Time Signed: 06/26/23 21:21 EST\.br\Electronically Co-Signed By: Everardo Perera DO\.miki\Date and Time Co-Signed: 06/27/23 08:01 EST Family Medicine Office/Clini c Noteon 06-27-2023 Family Medicine Office/Clinic Note HPI Staff Pt presents for BP issues and coughing/wheezing previous pt of Dr. Merna GURROLA 11/22/22 1 month f/u dysphagia *Sees GI [...] seem to help much ER followup: Hospital: [facility] Visit date: 06/27/23 Symptoms the patient presented [...] day(s), # 6 tab(s), Refills(s) 0, Pharmacy: [facility] 1985, 167, cm, 06/27/23 10:33:00 EST, Height/Length Dosing, 111, kg, 06/27/23 10:33:00 EST, Weight Dosing brompheniramine/dext romethorphan/PSE, 2.5 mL, Oral, q6hr for cold symptoms, 120 mL, Refill(s) 1, [facility], 167, cm, 06/27/23 10:33:00 EST, Height/Length Dosing, 111, kg, 06/27/23 10:33:00 EST, Weight Dosing hydrochlorothiazide, 12.5 mg = 1 cap(s), Oral, Daily, # 30 cap(s), Refills(s) 6, Pharmacy: [facility] 1985, 167, cm, 06/27/23 10:33:00 EST, Height/Length Dosing, 111, kg, 06/27/23 10:33:00 EST, Weight Dosing methylPREDNISolone, = 1 packet(s), Oral, As Directed, as directed on package labeling, X 6 day(s), # 21 tab(s), Refills(s) 0, Pharmacy: [facility] 1985, 167, cm, 06/27/23 10:33:00 EST, (more content not included)... [facility] Comment on above: Result Comment: Elec tronically Signed By: DIANA MOYER.br\Date and Time Signed: 06/27/23 12:02 EST Insurance Correspondenceon 1 08-28-2022 Insurance Correspondence [id number] 0#1.00TIFF [facility] Nursing Note - Woundon 06-27 Nursing Note - Wound [id number] 9#2.00TIFF [facility] Patient Educationon 06-27-20 23 Patient Education Cardiovascular Left Bundle Branch Block [...] safe for you. General instructions ? Take hzkf-xgw-ytgsdua and prescription medicines only as told by [...] provider. Document Revised: 10/11/2020 Document Reviewed: 12/21/2019 [employer] Patient Education ? 2022 [employer] ENT Cough, Adult Coughing is a [...] ? Allergies. (more content not included)... Normal [facility] Physician Orderon 06-27-2023 Physician Order [id number] 4#1.00TIFF Normal [facility] Physician Referralon 023 Physician Referral [id number] #1.00TIFF Normal [facility] Progress Note - Woundon 06-07 Progress Note - Wound [id number] 2#1.00TIFF Normal [facility] Auto DiffOrdered By: SYSTEM SYSTEM on 06-26-2023 Basophils/100 WBC (Bld) 0.9 % Normal 0.0-2.0 [facility] Comment on above: Order Comment: Order Added by Discern Expert. Performed By: #### 1 [id number], 5144180, 7785671, 8181306, 05892613, 39393027 ####[facility] [address] [place] [address] Basophils/Leukocytes Auto (Bld) [Pure # fraction] 0.0 E9/L Normal 0.0-0.2 [facility] Comment on above: Order Comment: Order Added by Discern Expert. Performed By: #### 1 3186484, 1499958, 0343961, 8895763, 28545655, 99459508 ####[facility] [address] [place] [address] Eosinophils/100 WBC (Bld) 2.7 % Normal 0.0-8.0 [facility] Comment on above: Order Comment: Order Added by Discern Expert. Performed By: #### 1 7560584, 2903316, 6106739, 5717860, 98777093, 38349906 ####[place] [address] [address] Eosinophils/Leukocyt es Auto (Bld) [Pure # fraction] 0.1 E9/L Normal 0.0-0.5 [facility] Comment on above: Order Comment: Order Added by Discern Expert. Performed By: #### 1 8898057, 9476329, 0708337, 9297372, 39403733, 76874153 ####[place] [address] [address] Lymphocytes/100 WBC (Bld) 20.0 % Normal 14.0-50.0 [facility] Comment on above: Order Comment: Order Added by Discern Expert. Performed By: #### 1 4507541, 9522613, 6125341, 3100540, 66227278, 42325638 ####[address] [address] Lymphocytes/Leukocyt es Auto (Bld) [Pure # fraction] 0.9 E9/L Low 1.0-4.0 [facility] Comment on above: Order Comment: Order Added by Amanda Expert. Performed By: #### 1 1929345, 0449742, 3574442, 5367098, 92898730, 48409701 ####[address] [address] Monocytes/100 WBC (Bld) 7.4 % Normal 4.0-14.0 [facility] Comment on above: Order Comment: Order Added by Discern Expert. Performed By: #### 1 5520244, 2956848, 9917929, 9950241, 05757535, 75170853 ####[address] [address] Monocytes/Leukocytes Auto (Bld) [Pure # fraction] 0.3 E9/L Normal 0.2-1.0 [facility] Comment on above: Order Comment: Order Added by Discern Expert. Performed By: #### 1 6538458, 5640128, 4784414, 7740892, 07251882, 39526280 ####[place] [address] [address] Neutrophils/100 WBC (Bld) 69.0 % Normal 36.0-75.0 [facility] Comment on above: Order Comment: Order Added by Discern Expert. Performed By: #### 1 3513040, 2696248, 3471140, 3056910, 02130330, 56352214 ####[place] [address] [place] [address] Neutrophils/Leukocyt es Auto (Bld) [Pure # fraction] 3.2 E9/L Normal 2.0-7.5 [facility] Comment on above: Order Comment: Order Added by Discern Expert. Performed By: #### 1 6850607, 9216354, 5219973, 9745390, 07684919, 57839501 ####[place] [address] [address] BMPOrdered By: SYSTEM SYSTEM on 06-26-2023 Anion gap [Moles/Vol] 11 mmol/L Normal 6-16 [facility] Comment on above: Performed By: #### 1 8301803, 7839691, 6077112, 7494709, 17732093, 52426217 ####[place] [address] [address] Calcium [Mass/Vol] 8.6 mg/dL Low 8.9-11.1 Remiso l Chem Comment on above: Performed By: #### 1 7812293, 8178628, 4187040, 4094602, 13440473, 97593865 ####[place] [address] [place] [address] Chloride [Moles/Vol] 109 mmol/L Normal 101-111 Amado daniela Chem Comment on above: Performed By: #### 1 6723048, 6533532, 8224575, 4650770, 37516944, 41260357 ####[place] [address] [place] [address] CO2 [Moles/Vol] 26 mmol/L Normal 21-31 [facility] Comment on above: Performed By: #### 1 0968822, 5367062, 5617522, 9019062, 37569061, 63764177 ####[facility] [address] [place] [address] Creatinine [Mass/Vol] 0.9 mg/dL Normal 0.5-1.3 [facility] Comment on above: Performed By: #### 1 0846994, 6642195, 5641736, 1614446, 90984846, 63405205 ####[facility] [address] [place] [address] Glucose [Mass/Vol] 104 mg/dL Normal 55-199 Remiso l Chem Comment on above: Performed By: #### 1 6916424, 3178222, 8351500, 0178953, 62767701, 88324724 ####[address] [address] Potassium [Moles/Vol] 3.9 mmol/L Normal 3.5-5.3 [facility] Comment on above: Performed By: #### 1 2561592, 1112466, 2444990, 2164479, 34688417, 45626248 ####[address] [place] [address] Sodium [Moles/Vol] 142 mmol/L Normal 135-145 Remiso l Chem Comment on above: Performed By: #### 1 4574963, 4406196, 2826693, 2431389, 45587460, 09756246 ####[facility] [address] [place] [address] Urea nitrogen [Mass/Vol] 12 mg/dL Normal 5-21 Rem[facility] Chem Comment on above: Performed By: #### 1 3195700, 1894838, 9498728, 0581541, 90738989, 61433466 ####[facility] [address] [place] [address] BMPon 06-26-2023 BUN/Creat Ratio 13 No Units Normal 10-20 [facility] Comment on above: Performed By: #### 1 0342444, 9128625, 5459980, 5699714, 37612946, 91408877 ####[facility] [address] [place] [address] CBC w/ Auto DiffOrdered By: Rossy Summers on 06-26-2023 Erythrocyte distribution width (RBC) [Ratio] 16.1 % High 10.9-14.2 [facility] Comment on above: Performed By: #### 1 5268151, 3854084, 8251151, 2446941, 74565397, 01205462 ####[address] [address] Hematocrit (Bld) [Volume fraction] 35.9 % Normal 34.0-46.0 [facility] Comment on above: Performed By: #### 1 8434815, 0642468, 5791780, 8273757, 33279933, 56330630 ####[place] [address] [address] Hemoglobin (Bld) [Mass/Vol] 12.0 g/dL Normal 12.0-16.0 [facility] Comment on above: Performed By: #### 1 1203151, 4821524, 6664310, 6225663, 45836374, 43833121 ####[place] [address] [address] MCH (RBC) [Entitic mass] 27.2 pg Normal 27.0-34.0 [facility] Comment on above: Performed By: #### 1 4814585, 0913046, 6403481, 3939512, 14168731, 38967061 ####[place] [address] [address] MCHC (RBC) [Mass/Vol] 33.6 g/dL Normal 31.4-36.0 [facility] Comment on above: Performed By: #### 1 4939353, 5626665, 3907400, 4044553, 63022898, 76441584 ####[place] [address] [address] MCV (RBC) [Entitic vol] 81.0 fL Normal 80.0-100.0 [facility] Comment on above: Performed By: #### 1 7772878, 4648210, 1292093, 8837142, 33670770, 48030497 ####[place] [address] [place] [address] Platelet mean volume (Bld) [Entitic vol] 7.9 fL Normal 6.4-10.8 [facility] Comment on above: Performed By: #### 1 7600491, 8099385, 6956793, 8934111, 06212341, 98734830 ####[address] [address] Platelets (Bld) [#/Vol] 138.0 E9/L Low 150.0-500.0 [facility] Comment on above: Performed By: #### 1 9835841, 2776036, 6020187, 4290625, 47933871, 76180634 ####[place] [address] RBC (Bld) [#/Vol] 4.4 E12/L Normal 4.3-5.9 [facility] Comment on above: Performed By: #### 1 9429440, 6780856, 1119709, 3327820, 04995715, 43672364 ####[address] [address] WBC corrected for nucl RBC Auto (Bld) [#/Vol] 4.6 E9/L Normal 4.0-11.0 [facility] Comment on above: Performed By: #### 1 6196839, 2030072, 7853952, 3522882, 93897786, 97473452 ####[place] [address] [address] CHEMISTRYOrdered By: SYSTEM SYSTEM on 06-26-2023 eGFR mL/min/1.73 m2 Normal >=59mL/min/1.73 m2 Re misol Chem Urea nitrogen/Creatinine [Mass ratio] 13 mg/mg Normal 10 - 20 Remisol Chem COAGULATIONOrdered By: Franko Saldana on 06-26-2023 aPTT Coag (PPP) [Time] 31.8 s Normal 25.1 - 36.5 second(s) [facility] Auto Coag Comment on above: Interpretive Data: Tod massey 15 days - 4 weeks 1 - [...] the same coagulation reagent and instrumentation as [facility]. Currently there are no coagulation studies available worldwide for children to 14 days, and no normal ranges. Heparin therapeutic range (represented by Anti-Factor Xa activity of 0.2 - 0.4 U/mL) corresponds to PTT of 56.6 - 109.0 sec. PT Coag (PPP) [Time] 10.7 s Normal 9.4 - 1 2.5 second(s) [facility] Auto Coag Comment on above: Interpretive Data: [...] the same coagulation reagent and instrumentation as [facility]. Currently there are no coagulation studies available [...] Bunch FINAL REPORT Dictated: 06/26/2023 7:25 pm Csear Ortiz MD, V. Signed (Electronic Signature): 06/26/2023 7:25 pm Signed by: Cesar Ortiz MD, V. Transcribed by: ANDRAE Technologist: ROSALINA [facility] Consent for Procedure/Surger yon 06-26-2023 Consent for Procedure/Surgery [id number] 1#1.00TIFF [facility] Consent for Treatmenton 06-07 Consent for Treatment [id number] #1.00TIFF [facility] Consent for Treatment [id number] #1.00TIFF [facility] Consent to Photographon 06-07 Consent to Photograph [id number] 6#1.00TIFF [facility] Correspondence - [place] Correspondence - Wound [id number] 3#1.00TIFF Normal [facility] Correspondence - Wound [id number] 1#1.00TIFF Normal [facility] Discharge Instructionson Discharge Instructions [id number] 9#1.00TIFF Normal [facility] ED Clinical Summaryon 2022 ED Clinical Summary [place] [id number] ED Clinical Summary Person Information Name: MECCAJESSENIA/[place] Age: 52 Years : 1970 Sex: Female Language: Iranian PCP: Pb BAUMAN DO Marital Status: Visit Id: Visit Reason: Hypertension; Headache; HIGH BLOOD PRESSURE - SENT BY PENDING SALE TO [facility] Speciality: Acuity: 3 Enc Type: Emergency [...] 06/26/2023 20:53:28 06/26/2023 20:53:28 06/26/2023 20:53:28 AD[address]ESS: [id number] [facility] [id number] PHYS DOC NOTES: MEDICAL INFORMATION: Prescriptions Given: [...] Follow up: With: Address: When: Pb BAUMAN [address] [facility] [place] [address] [phone] Business (1) In 3 days 06/29/2023 Comments: Follow-up with your primary care provider in 3 to 5 days. If symptoms worsen, do not improve, or new symptoms arise please report back to emergency department for further evaluation. Continue to monitor your blood pressure, and you may start 20 mg of lisinopril daily. DIAGNOSIS: Head ache; Hypertension Normal [facility] ED Patient Education Noteon 06-26-2023 ED [...] blood pr (more content not included)... Normal [facility] ED Patient Summaryon 023 ED Patient Summary [place] [id number] Patient Discharge Instructions Person Information Name: JESSENIA WING Age: 52 Years Arrival Date: 06/26/2023 18:31:10 Discharge Diagnosis: Head ache; Hypertension Primary Care Physician: Pb BAUMAN DO Provider Information Primary Provider: Everardo Perera DO Advanced Ink Grinder:None The exam and treatment you received in the Emergency Department were for an urgent problem and are not intended as complete care. It is important that you follow up with a doctor, nurse practitioner, or physician?s telecom assistant for ongoing care. If your symptoms [...] Instructions: With: Address: When: Pb BAUMAN [address] [facility] [place] [address] [phone] Business (1) In 3 days 06/29/2023 Comments: [...] opioids can be used to help relieve tlntaall-te-wioygg pain and are often prescribed following a [...] Drug Administration (more content not included)... Normal [facility] Multi-Wound Charton 06-26-20 Multi-Wound Chart [id number] 4#1.00TIFF Normal [facility] Nursing Assessment - Woundon 06-26-2023 Nursing Assessment - Wound [id number] 9#2.00TIFF Normal [facility] Nursing Assessment - Wound [id number] 8#1.00TIFF Normal [facility] PT & PTTon 06-26-2023 aPTT Coag (PPP) [Time] 31.8 second(s) Normal 25.1-36.5 [facility] Comment on above: Result Comment: Para [...] the same coagulation reagent and instrumentation as [facility]. Currently there are no coagulation studies available worldwide for children to 14 days, and no normal ranges. Heparin therapeutic range (represented by Anti-Factor Xa activity of 0.2 - 0.4 U/mL) corresponds to PTT of 56.6 - 109.0 sec. Performed By: #### 1 9288063, 2445926, 5359881, 3984795, 57354592, 58398041 ####[facility] [address] [place] [address] PT Coag (PPP) [Time] 10.7 second(s) Normal 9.4-12.5 [facility] Comment on above: Result Comment: 15 [...] the same coagulation reagent and instrumentation as [facility]. Currently there are no coagulation studies available worldwide for children to 14 days, and no normal ranges. Performed By: #### 1 [id number], [id number], [id number], [id number], [id number], [id number] ####[facility] [address] [place] [address] PT & PTTOrdered By: Franko jenkins on 06-26-2023 INR Coag (PPP) [Relative time] 1.0 {INR} Invalid Interpretation Code [facility] Auto Coag Comment on above: Interpretive Data: [...] 3.0 ? 4.5 Performed By: #### 1 [id number], [id number], [id number], [id number], [id number], [id number] ####[facility] [address] [place] [address] Troponin 0 Hr.Ordered By: [employer] on 06-26-2023 Troponin 2.50 pg/mL Low 10.10-27.10 Remisol Chem Comment on above: Interpretive Data: T he 95% CI (Confidence Interval) PPV (Positive Predictive Value) for myocardial infarction in females is 38 pg/mL, in males 51 pg/mL. The results should be used in conjunction with clinical conditions of myocardial infarction. (Access High Sensitivity Troponin I Instructions For Use, [employer], February 2018) Result Comment: The 95% CI (Confidence Interval) PPV (Positive Predictive Value) for myocardial infarction in females is 38 pg/mL, in males 51 pg/mL. The results should be used in conjunction with clinical conditions of myocardial infarction. (Access High Sensitivity Troponin I Instructions For Use, [employer], February 2018) Performed By: #### 1 [id number], [id number], [id number], [id number], [id number], [id number] ####[facility] [address] [place] [address] XR Chest Single Viewon 06-26 XR Chest [...] mGy = na DAP = na Normal [facility] eGFRon 06-26-2023 GFR/1.73 sq M.predicted among non-blacks MDRD (S/P/Bld) [Vol rate/Area] mL/min/{1.73_m2} Normal >=59 [facility] Comment on above: Order Comment: Order added by Discern Expert. Performed By: #### 1 [id number], [id number], 1573605, [id number], [id number], [id number] ####[facility] [address] [place] [address] Reminderson 03-12-2023 Reminders - From: Morena Rousseau CNP To: Miya Tenorio; Sent: 03/05/2023 15:23:19 EDT Show up: 03/05/2023 15:24:00 EDT Subject: Ambulatory Reminder Reminder/Recall Colonoscopy in 2032. 02/05/2033 10 year colon recall Normal [facility] Gastroenterology Office/Clin ic Noteon 03-05-2023 Gastroenterology [...] fluticasone propionate (more content not included)... Normal [facility] Comment on above: Result Comment: Elec [...] getting enough exercise. ? Smoking. ? Taking nplw-mrk-bkwtsag pain medicines, like aspirin and ibuprofen. ? [...] these instructions at home: Medicines ? Take ozxz-mcu-ebrjsig and prescription medicines only as told by your health care provider. ? If told by your health care provider, take a fiber supplement or probiotic. Constipation prevention Your condition may cause constipation. To prevent or treat constipation, you may need to: ? Drink enough fluid to keep your urine pale yellow. ? Take mlvo-ofl-ykvdlvb or prescription medicines. ? Eat foods that [...] provider. Document Revised: 01/20/2020 Document Reviewed: 01/20/2020 [employer] Patient Education ? 2022 [employer]. Peptic Ulcer A peptic ulcer is a [...] hospitalized in a (more content not included)... [facility] Reminderson 02-18-2023 Reminders - From: Harvey Charles To: ZARI - Reminders/Recalls; Sent: 02/18/2023 15:57:52 EDT Show up: 01/04/2033 15:57:00 EDT Subject: Ambulatory Reminder Due Date/Time: 02/05/2033 15:57:00 EDT Reminder/Recall Repeat colonoscopy in 10 years(2032) Normal [facility] Postoperative Documentson Postoperative Documents [id number] 1#1.00CD:127 [facility] IntraOperative Documentson 0 02-10-2023 IntraOperative Documents [id number] 3#1.00CD:127 [facility] Consenton 02-06-2023 Consent [id number] 9#1.00CD:127 Normal [facility] Discharge Instructionson Discharge Instructions [id number] 9#1.00CD:127 Normal [facility] Main OR Intraoperative Recor don 02-06-2023 Main OR Intraoperative Record IntraOp Document Type FT Summary Primary Physician: Keith CHUNG MD Finalized Date/Time: 02/06/23 09:01:34 Pt. Name: MECCA, JESSENIA /Sex: 1970 Female Med Rec #: [id number] Physician: Keith CHUNG MD Financial #: [id number] Pt. Type: O Room/Bed: Endo OP 02/04 [...] Attendee Costa RYDER, Zeke Acuna, Romana Mello SAND HAULER, Monica Tovar Role Performed STOVE TENDER Staff - Other Scrub - Primary Time [...] Kaleigh Cuellar Role Performed Surgeon - Primary Clam Shovel Operator - Primary Time In 02/05/23 13:06:00 02/05/23 [...] CST, OMAR Moss MD, Shon Parker RN, Kristin N Time Out Complete 02/05/23 13:12:00 Outcomes Met? [...] and tissue Entry 1 Skin Integrity Intact, [place], Warm, and Skin Abnormality No Dry Outcomes Met? Yes Last Modified By: Kaleigh Menendez RN 02/05/23 13:10:51 Post-Care Text: The patient is free from signs and symptoms of injury caused by extraneous objects Patient Positioning FT Pre-Care Text: Identifies physical alterations that require additional precautions for procedure-specific positioning, verifies (more content not included)... Normal [facility] Consent for Treatmenton Consent for Treatment [id number] #1.00CD:127 Normal [facility] Discharge Instructionson Discharge Instructions JESSENIA WING [...] 24 hours Discharge Diet(s) Regular Pharmacy Information [facility] Discharge Instructions Discharge Instructions New Follow Up Appointments after Discharge Follow Up with OMAR CROCKER, LAINEY Parker, [facility] When: Comments: Call for any problems. Office will call to schedule follow up appointment Where: [address] [place] [address] Medications What How Much When Instructions Next Dose Changed omeprazole (omeprazole 20 mg Cap-DR) 1 Capsules By Mouth Every day Changed omeprazole (omeprazole 40 mg Cap-DR) 1 Capsules By Mouth Every day Pickup at [facility] 1985 Unchanged albuterol (albuterol HFA [...] Tablets By Mouth Every day Pharmacy Information [facility] 1986: [address] [place], [place] [id number] [phone] Test Results No qualifying data available. Allergies [...] activities are safe for you. ? Take uazl-quw-hytuscc and prescription medicines only as told by [...] you f (more content not included)... Normal [facility] Comment on above: Result Comment: Elec [...] otherwise normal colonoscopy Images Procedure images: Rec1_hd_video_2022_0 _[id number]_[id number].ewa g Rec1_hd_video_2022_0 _25_20_164.ewa g Rec_hd_video_2022_0 _24_56_261.ewa g [...] Return to activities:: After 24 hours. Normal [facility] Comment on above: Result Comment: Elec tronically Signed By: Keith CHUNG MD\.br\Date and Time Signed: 02/05/23 13:31 EDT Other Comment: Analia monique Attachment - attachment storage system not supported [id number] Can be viewed in source systemMissing Attachment - attachment storage system not supported 2096257 Can be viewed in source systemMissing Attachment - attachment storage system not supported 7386138 Can be viewed in source system Endoscopic [...] Distal esophageal Schatzki ring, dilated using 60 Kiswahili Mckoy dilator 2. Mild gastric erosions, biopsied to rule out H. pylori 3. Normal duodenal mucosa Images Procedure images: Rec1_hd_video_2022_0 ___13_111.ewa g Rec1_hd_video_2022_0 8_T1__36_918.ewa g Rec1_hd_video_ 8__19_35_722.ewa g . Post-Procedure Complications: none. Estimated blood loss: none. Specimens: sent to pathology. Devices/ implants: none left in place. Impression and Plan 1. Distal esophageal Schatzki ring, dilated using 60 Kiswahili Mckoy dilator 2. Mild gastric erosions, biopsied to rule out H. pylori Recommendations: Follow-up in GI clinic in 2 weeks Omeprazole 40 mg p.o. daily Normal [facility] Comment on above: Result Comment: Elec tronically Signed By: Keith CHUNG MD\.br\Date and Time Signed: 02/05/23 13:30 EDT Other Comment: Analia monique Attachment - attachment storage system not supported 3031441 Can be viewed in source systemMissing Attachment - attachment storage system not supported 5732329 Can be viewed in source systemMissing Attachment - attachment storage system not supported 1568571 Can be viewed in source system Main OR PACU I Recordon Main OR PACU I Record PACU Phase I Document Type FT Summary Primary Physician: Keith CHUNG MD Finalized Date/Time: 02/05/23 14:25:47 Pt. Name: JESSENIA WING/Sex: 1970 Female Med Rec #: [id number] Physician: Keith CHUNG MD Financial #: [id number] Pt. Type: O Room/Bed: Endo OP 02/04 [...] By: Marcie Ramos RN 02/05/23 14:25 Normal [facility] Main OR Preoperative Recordo n 02-05-2023 Main OR Preoperative Record Holding Area Document Type FT Summary Primary Physician: Keith CHUNG MD Finalized Date/Time: 02/05/23 12:11:06 Pt. Name: JESSENIA WING/Sex: 1970 Female Med Rec #: [id number] Physician: Keith CHUNG MD Financial #: [id number] Pt. Type: O Room/Bed: Endo OP 02/04 [...] By: Cristiane Corey RN 02/05/23 12:11 Normal [facility] Monitor Recordon 02-05-2023 Monitor Record [id number] 4#1.00CD:127 Normal [facility] Patient Education - Texton 0 02-05-2023 [...] unsweetened, w/added ascorbic acid 1 cup 0.5 Jennings 1 cup 0.7 Vegetables Cooked Green beans 1 cup 4.0 Carrots 1/2 cup sliced 2.3 Peas 1 cup 8.8 Potato (baked, with skin) 1 medium potato 3.8 Raw Gary (with peel) 1 cucumber 1.5 Lettuce 1 [...] IMMEDIATE MEDIC (more content not included)... Normal [facility] Progress Note-Physicianon Progress Note-Physician Patient: JESSENIA [...] Daily, # 135 tab(s), Refills(s) 3, Pharmacy: [facility], 167, cm, 12/18/22 9:30:00 EDT, Height/Length Dosing, 106.5, kg, 12/18/22 9:30:00 EDT, Weight Dosing albuterol HFA 90 mcg/inh MDI: 2 puff(s), Inhalation, QID, 1 EA, Refill(s) 2, [facility] 1985, 167, cm, 05/25/20 16:49:00 EST, Height/Length Dosing, 112.5, kg, 05/25/20 16:49:00 EST, Weight Dosing fluticasone propionate 232 mcg/inh inhalation powder: 232 mcg, Inhalation, q12hr, Swallowed rather than inhaled rinse mouth and throat after use, # 1 EA, Refills(s) 5, Pharmacy: [place] [address], 167, cm, 10/25/22 14:36:00 EDT, Height/Length Dosing, 110.1, kg, 10/25/22 14:36:00 EDT, Weight Dosing... lisinopril 10 mg Tab: 10 mg = 1 tab(s), Oral, Daily, # 90 tab(s), Refills(s) 1, Pharmacy: [place] [address], 167, cm, 05/16/22 14:29:00 EST, Height/Length Dosing, 100.9, kg, 05/16/22 14:29:00 EST, Weight Dosing omeprazole 20 mg Cap-DR: 20 mg = 1 cap(s), Oral, Daily, # 90 cap(s), Refills(s) 3, Pharmacy: [facility] 1985, 167, cm, 12/18/22 9:30:00 EDT, Height/Length Dosing, 106.5, kg, 12/18/22 9:30:00 EDT, Weight Dosing omeprazole 40 mg Cap-DR: 40 mg = 1 cap(s), Oral, Daily, # 30 cap(s), Refills(s) 1, Pharmacy: [facility] 1985, 167, cm, 02/05/23 12:12:00 EDT, Height/Length [...] All Problems Allergic rhinitis / SNOMED CT 232753169 / Confirmed Anemia / SNOMED CT 026225333 / Confirmed Anxiety / SNOMED CT 53785498 / Confirmed Breast cancer screening / SNOMED CT 163420366 / Confirmed Colon cancer screening / SNOMED CT 560828380 / Confirmed Dysphagia / SNOMED CT 18999381 / Confirmed Heartburn / SNOMED CT 19559873 / Confirmed History of left knee replacement / SNOMED CT 6226705471 / Confirmed HTN (hypertension) / SNOMED CT 6810949884 / Confirmed Medial meniscus tear / SNOMED CT 514186429 / Confirmed left Non-smoker / SNOMED CT 60540813 / Confirmed Normocytic anemia / SNOMED CT 566708482 / Confirmed Osteoarthritis / SNOMED CT 3530597778 / Confirmed left knee Tenderness of lymph node / SNOMED CT 392261688 / Confirmed Venous insufficiency / SNOMED CT 513082129 / Confirmed Resolved: BACTERIAL PNEUMONIA, UNSPECIFIED / ICD-9-CM 482.9 Resolved: Hypertension / SNOMED CT 9835407883 Resolved: Microcytosis / SNOMED CT 294879743 Resolved: None / SNOMED CT 820594645 Resolved: Screening for cardiovascular condition / SNOMED CT 929356207 Resolved: Ventral hernia / SNOMED CT 6479747188 Canceled: Blood pressure elevated without history of HTN / SNOMED CT 9171627375 Canceled: Bronchitis with wheezing / SNOMED CT 4086336950 Canceled: Obesity (BMI 30-39.9) / SNOMED CT 002226454 Physical Examination Vital Signs 02/05/2023 13:25 EDT [...] 118 mmH (more content not included)... Normal [facility] Comment on above: Result Comment: Elec tronically Signed By: Munir Adams DO\.br\Date and Time Signed: 02/05/23 13:37 EDT Progress Note-Physician Patient: JESSENIA WING MRN: [id number] Age: 52 years Sex: Female : 1970 [...] Daily, # 135 tab(s), Refills(s) 3, Pharmacy: [facility], 167, cm, 12/18/22 9:30:00 EDT, Height/Length Dosing, 106.5, kg, 12/18/22 9:30:00 EDT, Weight Dosing albuterol HFA 90 mcg/inh MDI: 2 puff(s), Inhalation, QID, 1 EA, Refill(s) 2, [facility], 167, cm, 05/25/20 16:49:00 EST, Height/Length Dosing, 112.5, kg, 05/25/20 16:49:00 EST, Weight Dosing fluticasone propionate 232 mcg/inh inhalation powder: 232 mcg, Inhalation, q12hr, Swallowed rather than inhaled rinse mouth and throat after use, # 1 EA, Refills(s) 5, Pharmacy: [facility], 167, cm, 10/25/22 14:36:00 EDT, Height/Length Dosing, 110.1, kg, 10/25/22 14:36:00 EDT, Weight Dosing... lisinopril 10 mg Tab: 10 mg = 1 tab(s), Oral, Daily, # 90 tab(s), Refills(s) 1, Pharmacy: [facility], 167, cm, 05/16/22 14:29:00 EST, Height/Length Dosing, 100.9, kg, 05/16/22 14:29:00 EST, Weight Dosing omeprazole 20 mg Cap-DR: 20 mg = 1 cap(s), Oral, Daily, # 90 cap(s), Refills(s) 3, Pharmacy: [facility], 167, cm, 12/18/22 9:30:00 EDT, Height/Length Dosing, [...] All Problems Allergic rhinitis / SNOMED CT 473216634 / Confirmed Anemia / SNOMED CT 099939537 / Confirmed Anxiety / SNOMED CT 63803674 / Confirmed Breast cancer screening / SNOMED CT 353269458 / Confirmed Colon cancer screening / SNOMED CT 434582997 / Confirmed Dysphagia / SNOMED CT 40802029 / Confirmed Heartburn / SNOMED CT 13162698 / Confirmed History of left knee replacement / SNOMED CT 7522127051 / Confirmed HTN (hypertension) / SNOMED CT 4387843899 / Confirmed Medial meniscus tear / SNOMED CT 276788775 / Confirmed left Non-smoker / SNOMED CT 17348100 / Confirmed Normocytic anemia / SNOMED CT 095744660 / Confirmed Osteoarthritis / SNOMED CT 5237286122 / Confirmed left knee Tenderness of lymph node / SNOMED CT 759893284 / Confirmed Venous insufficiency / SNOMED CT 773825969 / Confirmed Resolved: BACTERIAL PNEUMONIA, UNSPECIFIED / ICD-9-CM 482.9 Resolved: Hypertension / SNOMED CT 2881594269 Resolved: Microcytosis / SNOMED CT 457597626 Resolved: None / SNOMED CT 757373483 Resolved: Screening for cardiovascular condition / SNOMED CT 475452092 Resolved: Ventral hernia / SNOMED CT 9999159734 Canceled: Blood pressure elevated without history of HTN / SNOMED CT 6149460028 Canceled: Bronchitis with wheezing / SNOMED CT 2330251474 Canceled: Obesity (BMI 30-39.9) / SNOMED CT 549634719, Active Problems (15) Allergic rhinitis Anemia Anxiety Breast cancer screening Colon cancer screening Dysphagia Heartburn History of left knee replacement HTN (hypertension) Medial meniscus tear Non-smoker Normocytic anemia Osteoarthritis Tenderness of lymph node Venous insufficiency Histories Past Medical History: Resolved None (061761796): Resolved. Ventral hernia (8747605672): Resolved. BACTERIAL PNEUMONIA, UNSPECIFIED (482.9): Resolved. Screening for cardiovascular condition (077090486): Resolved. Hypertension (7789443360): Resolved. Microcytosis (991835167): Resolved. Family History: Depression Child Depression Mother () Bipolar Sister Schizophrenia Brother Procedure history: Sclerotherapy ([id number]) on 09/02/2022 at 51 Years. Revision (724319814) on 12/20/2020 at 50 Years. Comments: 12/22/2020 13:37 CATT - Marcelina Powell left knee arthroplasty Sclerotherapy ([id number]) on 10/05/2020 at 49 Years. left TKR on 11/18/2016 at 45 Years. knee arthr (more content not included)... Normal [facility] Comment on above: Result Comment: Elec tronically Signed By: Munir Adams DO.br\Date and Time Signed: 02/05/23 12:26 EDT CNOVon 12-25-2022 CNOV Office Visit (ORTHCO) JESSENIA WING ([id number]) 1970 F Date Time Provider Department 12/25/22 [...] knee joint Informed Consent Consent Obtained: Verbal [place] Protocol A moment to CARE was completed. [...] recreational acti (more content not included)... Normal [facility] XR KNEE 4V AP/PA BOTH+LAT/ME R [...] Severe medial compartment joint space narrowing with frub-zu-aeyx contact. Small joint effusion. Venous varicosities are noted in the soft tissues. Left total knee arthroplasty is present. IMPRESSION: Advanced medial compartment predominant osteoarthritis of the right knee. Living Nurse: JAM Transcribe Date/Time: Dec 25 2022 11:24A Dictated by : KATERINE BOWSER MD This examination was interpreted and the report reviewed and electronically signed by: KATERINE BOWSER MD on Dec 25 2022 11:24AM EST [id number] Normal [facility] Consent for Procedure/Surger yon 12-19-2022 Consent for Procedure/Surgery [id number] 9#1.00CD:127 Normal [facility] Gastroenterology Office/Clin ic Noteon 12-19-2022 Gastroenterology Office/Clinic Note Chief Complaint dysphagia HPI Staff Patient is a 52 year old female who was referred by Inna for dysphagia. Was started on Omeprazole 20mg [...] with voice recognition artificial intelligence software, specifically [employer] and or [employer]. Substitutions may have occurred due to the inherent limitations of voice recognition and artificial intelligence software. ATTESTATION: Documentation services were performed after patient or guardian consented to allow [employer] to record this visit. STEFFI instructional design specialist and provider reviewed before signing. STEFFI: [...] Revision ( (more content not included)... Normal [facility] Comment on above: Result Comment: Elec [...] Screening for cardiovascular condition Ventral hernia Normal [facility] Consent for Treatmenton 12-05 Consent for Treatment [id number] #1.00CD:127 Normal [facility] Family Medicine Office/Clini c Noteon 12-16-2022 [...] left lower leg) Patient seen in the [facility]. Following exam discussed exam is concerning [...] When Contact Information Pb BAUMAN DO, DEJUAN [address] [place] [phone]- Additional Instructions: Patient Education BMI for Adults Edema, Kkgn-fn-Bjgm Musculoskeletal Pain Problem List/Past Medical History Ongoing Allergic rhinitis Anemia Breast cancer screening Dysphagia History of left knee replacement Non-smoker Normocytic anemia Tenderness of lymph node Venous insufficiency Historical BACTERIAL PNEUMONIA, UNSPECIFIED Hypertension Microcytosis None Screening for cardiovascular condition Ventral hernia Procedure/Surgical History Sclerotherapy (09/02/2022), Revision (12/20/2020), Scl (more content not included)... Normal [facility] Comment on above: Result Comment: Elec [...] numbers. This can be done either in [place] ([place] or metric measurements. Note that charts and online BMI calculators are available to help you find your BMI quickly and easily without having to do these calculations yourself. To calculate your BMI in Iranian ([place] measurements: 1. Measure your weight in [...] for Disease Control and Prevention: www.cdc.gov ? [place] Heart Association: www.heart.org ? National Heart, Lung, and Blood [place]: www.nhlbi.nih.gov Summary ? Body mass index (BMI) is a number that is calculated from a person's weight and height. ? BMI may help estimate how much of a person's weight is composed of fat. BMI can help identify those who may be at higher risk for certain medical problems. ? BMI can be measured using Iranian measurements or metric measurements. ? BMI charts are used to identify whether you are underweight, normal weight, overweight, or obese. This information is not intended to replace advice given to you by your health care provider. Make sure you discuss any questions you have with your health care provider. Document Revised: 03/15/2020 Document Reviewed: 01/21/2020 [employer] Patient Education ? 2022 [employer]. Obstetrics and Gynecology Edema Edema is when [...] or shiny. (more content not included)... Normal [facility] US LE Venous Duplex Lefton 0 [...] M.D. Transcribed by: ANDRAE Technologist: MYLA Connell [facility] Family Medicine Office/Clini c Noteon 11-29-2022 [...] With When Contact Information ANA CHÁVEZ CNP [address] [place] [address] Additional Instructions: Patient Education Dysphagia Exercising to [...] Recorded SARS (more content not included)... Normal [facility] Comment on above: Result Comment: Elec [...] these instructions at home: Medicines ? Take didq-yez-synveow and prescription medicines only as told by your health care provider. ? If you were prescribed an antibiotic medicine, take it as told by your health care provider. Do not stop taking the antibiotic even if you start to feel better. Eating and drinking ? Make any diet changes as told by your health care provider. ? Work with a diet and provider education specialist (dietitian) to create an eating plan [...] person's throa (more content not included)... Normal [facility] Ambulatory Visit Summaryon 0 11-22-2022 Ambulatory [...] AM EDT With: Keith CHUNG MD Where: [facility] Normal [facility] Ambulatory Visit Summaryon 0 11-03-2022 Ambulatory [...] PM EDT With: ANA CHÁVEZ CNP Where: [facility] [place] [facility] [address] [address]- \.br\ You Need to Schedule the Following Appointments\.br\ Follow Up with Pb BAUMAN DO, FAM When: \.br\ Where:\.br\ [address]\.br\ [place] [address].br\ \.br\ Medications\.br\ What How Much When Why Instructions\.br\ New albuterol (Albuterol (Eqv-ProAir HFA) 90 mcg/ inh inhalation aerosol) 2 Puffs Inhalation Every 4 hours as needed for Shortness of breath or wheezing Acute viral bronchitis Duration: 21 Days Pickup at [email or web address] 1985\.br\ New benzonatate (benzonatate 100 mg Cap) 1 Capsules By Mouth 3 times a day as needed for Cough Acute viral bronchitis Duration: [facility]\.br\ New methylPREDNISolone (Medrol 4 mg Tab) 1 Packets By Mouth As Directed Acute viral bronchitis Duration: 6 Days as directed on package labeling Pickup at [facility] 1985\.br\ Unchanged albuterol (albuterol HFA 90 mcg/ [...] if questions or concerns \.br\ Pharmacy Information\.br\ [facility] 1985: [address] [place], [place] [id number] [phone]\.br\ Allergies\.br\ No Known Medication Allergies\.br\ seasonal ,dust, [...] instructions at home:\.br\ \.br\ ? \.br\ Take ezem-ptr-wwgwfvi and prescription medicines only as told by [...] and water are not available, use hand development chemist.\.br\ ? \.br\ Avoid contact with people who [...] have a fever.\.br\ Get help susan Brewer [facility] Family Medicine Office/Clini c Noteon 11-03-2022 [...] for 21 day(s), 6.7 gm, Refill(s) 0, [facility], 167, cm, 11/03/22 12:20:00 EDT, Height/Length Dosing, 108.1, kg, 11/03/22 12:20:00 EDT, Weight Dosing benzonatate, 100 mg = 1 cap(s), Oral, TID, PRN Cough, X 10 day(s), # 30 cap(s), Refills(s) 0, Pharmacy: [facility], 167, cm, 11/03/22 12:20:00 EDT, Height/Length Dosing, 108.1, kg, 11/03/22 12:20:00 EDT, Weight Dosing methylPREDNISolone, = 1 packet(s), Oral, As Directed, as directed on package labeling, X 6 day(s), # 21 tab(s), Refills(s) 0, Pharmacy: [facility], 167, cm, 11/03/22 12:20:00 [...] With When Contact Information Pb BAUMAN DO, DEJAUN [address] [place] [address]- Additional Instructions: Patient Education Acute [...] Denies Al (more content not included)... [facility] Comment on above: Result Comment: Elec [...] numbers. This can be done either in [place] ([place] or metric measurements. Note that charts and online BMI calculators are available to help you find your BMI quickly and easily without having to do these calculations yourself. To calculate your BMI in [place] ([place] measurements: 1. Measure your weight in [...] for Disease Control and Prevention: www.cdc.gov ? [place] [employer]: www.heart.org ? National Heart, Lung, and Blood [place]: www.nhlbi.nih.gov Summary ? Body mass index (BMI) is a number that is calculated from a person's weight and height. ? BMI may help estimate how much of a person's weight is composed of fat. BMI can help identify those who may be at higher risk for certain medical problems. ? BMI can be measured using Iranian measurements or metric measurements. ? BMI charts are used to identify whether you are underweight, normal weight, overweight, or obese. This information is not intended to replace advice given to you by your health care provider. Make sure you discuss any questions you have with your health care provider. Document Revised: 03/15/2020 Document Reviewed: 01/21/2020 [employer] Patient Education ? 2022 [employer]. Pulmonary Medicine Acute Bronchitis, Adult Acute bronchitis [...] condition is (more content not included)... [facility] Family Medicine Office/Clini c Noteon 10-28-2022 [...] to discuss effectiveness of treatment plan. Ordered: [facility] Internal Ambulatory Referral 2. BMI 39.0-39.9,adult (Z68.39: Body mass index [BMI] 39.0-39.9, adult) Education attached on health risks of obesity and discusses healthy, balanced diet low in sugar, fat, carbs and exercise regimen ATTESTATION: Documentation services were performed after patient or guardian consented to allow Kia Jean to record this visit. STEFFI instructional design specialist and provider reviewed before signing. STEFFI: [...] HFA 90 (more content not included)... [facility] Comment on above: Result Comment: Elec [...] fruits, and frozen vegetables. ? Avoid buying hekvi-hz-itx foods, such as pre-cut fruits and vegetables [...] Tips for buyi (more content not included)... [facility] Ambulatory Visit Summaryon 0 10-25-2022 Ambulatory Visit Summary JSESENIA WING :1970 Visit Date:10/25/2022 Ambulatory Visit Instructions [...] PM EDT With: ANA CHÁVEZ CNP Where: [facility] Family Medicine [facility] Coding Summary.on 09-03-2022 Coding Summary. CD:[id number] Gh0bWw+PGhlYWQ+PE1FV SKmF48ppKFolK8QH8bBO D3SGPQRNELMZL9DEC8fl MK0TXyrT5SufgXa JanrxJSvXZ70TCu4KTI9 aOxvJCldyH9wxMPcA6p6 BoYzBZ86nK00VAhySDIo ErS9IyNtuyifdGDo V4jhPsHkrPIfOky+PHRh YmxlIHdpZHRoPScxMDAl IlBdcQkrFE8fGa4iGQXq LWNvbGxhcHNlOiBj j4jwEHZlLTbeGN9wfPwl F8GoeZE4OUUnw0w9Ky22 dHI+MIXtDFS4vMkiLIkn v355PrIuw8vxZRP9 uWVjXEgmHQB2U44zd9S6 PMHbCESjORU4iNP7zM0g cJltdhvuN1BeyZEvFaD0 HKS9bESvyC5rxTxv cdzveG6bEza+U48EDN1I UYBHIV7EPjq3X6BkBkdg dHI+HV14CJWgHB71lEBi dNDvo6qtuDo6YzTt MAArCST4yYjnHVgrw2No MOZuC69qgNRke3K0ZODv qCqfeNHgDjWinOE5xU0f OSzddwdvn7zoqnju Esftq3vibc69yY21H89j RVapXCFeFKI4ISPbDMBw oVyhex0xtJ8sVb9+IDxj v1lue9fjjCs3QeTq FGWmhnHlwGuwWJU9s7Zh Go82X7YwtLljy0PbLhe8 zx77yMSyg8A9fDW2VUks KTMwtQ8jGLuxDlS1 SXYdYlYsfN69aUYgTRzi Ny3pwBwatXpcAN4fNTAz woptRFNhkO1gJFTsdWFc iUqnEO6pZKXulbze q405FeIuWIZ9YCOehZCq Y8QhbB9fDoSdKAXyTYIg W6QeaNGwFWceV066SEwe UmE3DQTgneWhE1Ej ESYgtJxlCoX2h1T7Sg8U g8OfvlqyDCR3XWsvSDSw SqY4PfFxAsQ7W7IrBpy8 CXHsvBwbFG6nG2Yh UMTbqhznxpbllMJ5KFRb XIUtfT60cOCzURikEi4h w0H9k802TNGsFVQrgG90 Lc7hbKjoJWQtxNWU qT4iykwys6rpxsszWhEc YPYmVTk3SJv8JJTjaWpf HnTrGUS5KcU2VMR7eRCy rG3lsMhqxubczE4x Oyc+W66nkB6mBKX3JFE3 uehrVAAwjhIzOI89SG07 D7LmXmzsnQSrlOG+PGRp deUmzXcoXU4pIgAy c9olt4ZaFJecF4WzLIDd RRfkUkx2EVDuEQX6qLT7 fE2pWQPoTFgtf3L1rAF7 J7SnpnSwyy9zq8zd OCIhMQfaB03izDTzk4L4 PHTglOD5VHRdqTvtLgXf pY21Bom+NARlqQiop6Ln Rbjop6hig9ajnRi3 IjMwJSIgdmFsaWduPSJ0 z7QgOn56R73uFHakGYXx KVKaEAFaPLAgqNehtk5r kF5jLx5+PGNvbCB3 uEX9uI1fPOFiTeU3QUfe V840RkHjnVZzIdzkb1ru e8dfkRz7JwImHVMxtkOu qFshXFD6u2YiJl54 B36hRPhnHDXjGHUtZYZz YCCzpQfxha1hiE1rFv9+ YW1zi8ftga12qM20nAB+ XJKoPZE8dWyeEJkc SARhnK1yLMphOxB7SIAv TjRkkO60qKLhIAlgPh2k lJxhpSztPU9sPLDksoxg b521ZlVrd3btPVZq iOXyDLufFJQ3Y59it4W5 UTUaMWSqIFN2nGH8lP5x bGlnbjogbGVmdDsgdmVy yGrbGKamVPwvT578 IHRvcDsnPlBhdGllbnQg GiIpMHb4T1UcFlf6CIJy tMsfIK9fpRJgLNmkYd7u jKwvlXyeUP5bKPAp viihk107MpRov2lcVGRn mGZgLNyoXQS7K40qw1X9 ZFYzHBHvTIV0cZE9oY0y bGlnbjogbGVmdDsg izAvmKbmOEpyCBvhI083 IHRvcDsnPkJpcnRoIERh jHV7AM73MG21mZVdd9D1 hHT9N6UkQSCnchki dnvfwFE1CSQoNDEsgL97 Ga4rtLefQh1xJOYcZSZ8 XGZxsWDwM4SytB8uIxGg VNTtSULaK3IhaHEr RNgdB402JElvApE3JPWk qoYvI9UrDIWuhKzjGkH3 k6Q8Ty1QC1Z0XW15LV47 wZKgz3Z5yHT5D9Kz RHAmaazkomjldWY7JZPe KCKogI19Gx2jeNqmRv1d NKEwEDL9UQSzuEEkU5Ro lA8dPmUxJGSpCOJh S5VdbCWcSCcmR288WZkt VmZ9JISakdAgJ0KlFCIi eQiwIvI5a3G0Ra6GYRs8 HU24VQ76uPKme9F8 wOJ6E6XqDHHpmnbnwrwo zZY7PKClBLShwI70Li0r vUjaAb3hKXAvAVE1OCRn oPBpJ5TziQ6tTfMh SAXuKVBwP7GujOHkZTva E808BRduLlK0ECYcpbMu B1UrUELicIvjBlY8o7G0 Mc0UODOmRS43BSK4 kHM4KI17KV99A2SwHsrn dGFibGU+PHRhYmxlIHdp ZHRoPScxMDAlJyBzdHls ZV5eBv4jYINcTVLa sOnufROpUuYwm4bbIBVq KSvlMD9pyRrrP7YmiGG5 UQPiw6s2De91G26nJ8Fr dXA+OOSbpRY8yUL4 pB1tJoFoRcX5PStgU076 EkHbaXXyJmyds6jnc7fz gZj6GrL7TPLchkQvbUjh VQN4w2PkCv07R87g IHdpZHRoPSIxNSUiIHZh jKswew9mpU2hXz9+PGNv iZX3dUD3nC7sBuTzMkL3 FKfwC284SnAlfHRv Chmhj1qpi0xycFw6OpLh IGYwwvUurQxwPMB5b5Ms Hh70C6NksHceb4UcHlw5 jj03qHZzf8I2lZO7 K3NmYRUraetaaAVrhAwm BL7yFKXibzcrYWZxnN6q HZZvG8d2MdDsIpL3VTnm Y5AuohR9QDIybAVo VUuuEBP2V10qc6X0BEGi HFHdDHM3gFK2tC2jhGiz bjogbGVmdDsgdmVydGlj HLdaRJilH346EUMj gUwqYHYokW2nQNVmuTCx gLpqNX3tOUGwzespPxlN SMBKRtbhH0NECNiECilY UX40W9HdAmm0GIIa oYdkON1sdUDgPOojVc5i dEawmJlrYA9eUDIxyaau ROIpyE8zHIIknNWrhSdx ZQ1yCFMzctxsf137 QpYgGRM2YHRdaACbH5Ai tT4oFqLbIQPoDKHdA3Sb iVTkQKqrA724BSvqXoA2 PTKophEcD6WrGVXb xYvuQgI2k0N8Pl0nCr1b SE7oWSogNC71OK18bDSd l4C2zPN1Z4JwXSPemrds osztwOG4WEClAFWt xS54fHVeNRvvSk6er3Y8 f955TNDkMMEicY14Mz3j hEyfEHTmkHXHkR0mumgv s3ktodrjFhYeQRJr LGs7QJh7VPPiqObzHeEz JFD5IyZ9RKR6xRBjdH4m cThywyvctF2oDjm+NTAg GYVxkmD9J8XuTeo1 EPHqvLhoBN6lyFOkIHkz Nd5bxDcftUbiLL7aILIh mghhPMByzA3yDROkbQZp sHfbVA0gNZRzjxbn g045OpRmGBK6GLRywPMk X8KjuA8jQkZaZRIfGZDs P8VlnNRgOWnoB747VZod HyG0MDHyyyQiW4Uh CFNvsFcxZwG1h1J5Ad9K KS9anDK9D2RrJpu2AZLg jCtaXT1jmJLyABxnYp3u aOfpeOvhFV2rSUMy xxqwZHQvtI0bTAYrpXHn lBumET0oHGZkrednd862 XvBgSHE0COEwoORoD6Ge fM7oHhYxJUMgOYEk R2UrsKPcBRkoT457BEmg KcO9QZKrdvXuT2FiVPYw xFwaJnF6w9K8Lr3JmTK5 fOF7k1A1E5YujAPd FZA6NCZ0uwfweaq9M6Mg PjwvdHI+CA21OFCiHH12 rEHndRXyw6fdwMg8DkAk ZBOfQGU1rEghNAoh n4FlRHZtF49hnWLpu7T5 IGNvbGxhcHNlOyBlbXB0 xT7hSVcydlklv7renqpc Rdltx2favv82tI41 R53cBZsaYKCkVFNoHMLd ZNHfbOebqw1mzN4vJs5+ AAZrzXI7lCR7iS1oMpZd UnL4NWvqV026SpHg zVXmBunox2rfe0dmxTl4 IjIwJSIgdmFsaWduPSJ0 n3JcRl62O28lYUjhBPCz PSIyMCUiIHZhbGln em0dxW1tMg0+ZN4gl5be fc01qJ04rGB+PHRkIHN0 eAnwCNczAHKsdG7wXWnb QoD2QIZkMoZvoC84 cFKxMSlyWa0cvJrjrVrv NW4wOEXahgdrk099ZlGr h9xrGYWgzLKyZQmbBRZ4 H63vx4R5QVVoHWWh TLI7gGO7oL8jvOwgjkmr bGVmdDsgdmVydGljYWwt QDxcG184CWWqpQzfYmBc dAZrH0updpHABY1o OjwvdGQ+FZLsGXW5fCmc WIbuYKHbqZ6sEJKuN9m1 LqLzYiP3WCvgE5KdbwI4 IGJvbGQgMTBwdCBU wD3vwxtio5psmrdeAcYc WKEeQAg8OUs8SWKckHrw AiTpKTD1RbV7IMT5kBOj vG5utTtjmwahfJ5x Oyc+RklOOjwvdGQ+PHRk FHJ0vHgiOVljYISwdO5q ZTWtV3q5JvYcJkS4ULzr E0UexlX0CMGceQZu QQEnaSETtH8zqgddt2lx ktbdGfPvIZNhMKv9AIn2 EKDerLohZgAzCCE6EcA7 HBJ7bFIxcP8csPep ugxrmR4vEcf+TVJOOjwv dGQ+QZUeXSB4eEuiRCzz MSVehY7vRBBbR7m9CjEe FbC1PHmoJ4DlxkR1 UYQcqSVeGOQnmYOWhL0o xbcdt3icxbbwZxWmQUQj EOb9EKz8IZQjzXpdOrGp JIB3JiH5VAN0fIZu oC7iaRrxsdpebF6xPtg+ AME3UOR7YK77QF12E8Lh PjwvdGFibGU+PHRhYmxl IHdpZHRoPScxMDAl JyBz (more content not included)... [facility] Consent for Procedure/Surger yon 09-03-2022 Consent for Procedure/Surgery [id number]#[id number]:127 [facility] Discharge Instructionson Discharge Instructions [id number] 97#[id number]:127 [facility] Cardiovascular Reporton 08-08 Cardiovascular Report [id number] 5#1.00CD:127 [facility] Consent for Treatmenton 08-08 Consent for Treatment [id number] #[id number]:127 [facility] Inpatient Clinical Summaryon 09-02-2022 Inpatient Clinical Summary [place] [id number] Clinical Summary Person Information: Name: JESSENIA WING Age: 51 Years : 1970 Sex: Female PCP: Pb BAUMAN DO Marital Status: Race: White Ethnicity: Non- or Language: Iranian Visit Id: Visit Reason: I82.893//US GUIDED INJECTION SCHLEROTHERAPY Speciality: Acuity: Enc Type: Ambulatory/Same Day Surgery Med Service: Surgery Arrival: 09/02/2022 11:55:38 Discharge: Dispo Type: Address: [address] [place] [address] [phone] Provider Notes: Diagnosis: Problems Active Tenderness of [...] Dover MD Follow up: With: Address: When: [address] [address] Business (1) 09/30/2022 10:30 AM Comments: Keep scheduled appointment Patient Education Information: CV - EVLT Discharge Instructions (Custom) [facility] Inpatient Patient Summaryon 09-02-2022 Inpatient Patient Summary [address] [address] Patient Discharge Instructions PERSON INFORMATION Name: JESESNIA WING Date of : 1970 Current Date: [...] results: None Follow up: With: Address: When: [address] [address] Business (1) 09/30/2022 10:30 AM Comments: Keep [...] concerns, call to speak with your doctor. [facility]: [phone]. Medication Leaflets: You may receive a survey from [email or web address] asking you to rate your care experience. Your feedback is important and will help us understand what we do well and how we can improve the quality of care we provide to you, your loved ones and our community. It?s an honor to serve you. Thank you for choosing [facility] Operative Reporton Operative Report SURGERY DATE: [...] No complications. Rita Dover M.D. Dictated: 09/02/2022 [id number] Transcribed: 09/02/2022 [facility] Comment on above: Result Comment: Elec [...] concerns, call to speak with your doctor. [facility]: [phone]. [facility] Coding Summary.on 08-20-2022 Coding Summary. [id number] Gh0bWw+PGhlYWQ+PE1FV STgC96qvTDooF6PH3vUD L6WEYQSRVHANY7RMN0fd NF8FGbyB0NgnrEs NvudkLAbWW94SBb8HAY4 hTvdQFkxdQ2zxCXoY1o2 ZwXtRZ14mI90MZuiEUZu XzH1BdXrozktsXPx U4hiTsCwnZMaZml+PHRh YmxlIHdpZHRoPScxMDAl NcLibBypZE6rAk6nSQFv LWNvbGxhcHNlOiBj i0fqORIhOGtiYB2zfCyu W5UyrDZ0CTPdr4q5Rw64 dHI+JTSgRVK7jMitQIhq c796XkCqd3yeZJX4 vWLcVDsrIJB0T16lm9H8 TBKwOVIsOXJ3fPW2vF5j vRtbcwizQ2RxmVGfJpJ6 XLZ0hDMdqY8ohJxf edsivJ1uKuc+M47WIF2K VUBZYK8GHfz3E2DoEvxo dHI+KM34DARpIC95mUSc rBXeo7wxsHp9GpKu DOEzGGA4zWatQTvpt8Zn DYZzT76jzIJwg0Q7DHBx rKghmTItSdHcsLQ3sM2h JNuwygtyt7kxlgvs Flndo9rnsp31wM86K21y YGdhKWMyBOW8RUFeOIKv aPejhj4wtF0bPn8+IDxj r5zek2mlySp4YbGa HBKohpRzjLboOHU1a8Xo Jt74Q8StoTwzw4ExMwu7 ji84wWSky0M1bTD0BAwk APWhvV3zWPwfVdN0 VSSzQdDjaG28sAZfMEyq Mk9mpFuvtTtiOE8wVCSb zoqwWZIgzS8fBFRxnIMn tMnfKP0uNGOfplfk b787GnWmYBH6FGOxqTUb G1UnsK0jLyXxPDYvGADy W2YspMGlZSslW079IUpm TjH8BESaujAtA1Io JKYddEkhXsB9c0F8Ig7J g0SgnyusRLY7WSjpKAAn RuK3UlBcQaK2F9FfPfg7 TOBjrBgmDH7tO9Rn ZNJahedrvaacgGH6LPUf TZWmdU59zCCrGUgrVv8p f7U6y112NVTeQLNkyO18 Wz7tsVqdLMUafIES gC6xouvyt8gobrshYtXw TOEdLZk3DNg8KQVyyAlj QiMyXER4QhE0HBH2mJOs eQ9rsUcshdatrZ6c Oyc+V11zbH5zIOP7DAZ0 tfagDNSekbGsGP40BV04 I1WcJlfjvRXxpHV+PGRp kcXcpBstXY1zLmPo m6kde4HkVBnpU0LmHECs GUoiYhq4MLTkLBT8oAZ2 gX0dQAZxTSrtz2X9lRY3 T0VlfdXncl7wq0iz IJPmDTsrI08cnDKqb5O4 NSYkeUO0VAFkuLrpGnAq gL11Hmn+RLAzlSena9Ma Wyvvb3omb9oasIa7 IjMwJSIgdmFsaWduPSJ0 c1MrPj90H01xGMksBXJx RHDfYXFwWLSuoBcxdx4i qR7gAp1+PGNvbCB3 kGV9mO1hZXLoLnU7WEum L387SmLbhMXdEudmt1jv z5jzuFo9RyYcRQMrllLu sZrqZNC2j8RbUx46 R83tWPvnJVWwEULeZNOo BFQzsFqcka9jkV9gIu2+ IX2sk3ewcs07eU89hMW+ QPGlKKO3iPfhQTfn LSHlzY6vTQixQhS2MNRi UfZpjI04eHXqGKlpLt1c eTnckZitBQ9qGACmjixd r157PmEzh2kmKVYl iIVwBAgpGXX0F57vn8O4 SOLaVMUlMXG0aJM1hA0m bGlnbjogbGVmdDsgdmVy hNqqDRetBPpvI074 IHRvcDsnPlBhdGllbnQg NlZxTYy9K6MlRga8JDTb dShaHX6bfZXxRBfeKo7n gRrrkIpcSV1qTWMj sdikn053LaOhb2xgKNJn yBGpCAteHNI1G35rb8M0 PCMjYAPbKMF0kEC8bV4w bGlnbjogbGVmdDsg vsIuhEssWStpOIscS911 IHRvcDsnPkJpcnRoIERh gHB9VZ35MD24pGEdi5A0 bVW2M1MhDNUtolwe gknidFP5ALDiKVDuqV60 Fg7loPwlZo9kUMFsKEO0 LXTbcNJzE6WyjG9jBtBp QJJiRSVaV9SkqVCj QSvtT186KMnwDrV4OFJx ndFrT7ZwGNEgiBkgRkK5 c7V7Gu7BF6C7ZD66SJ59 bOFfr3K9vPH6N5Qp CODfsrizxvohxTA2YSSd HZWszD75Vm5ceXhuKe1a DKTzDWN2IHMwxSCbV1Zb gT4vJwExYWDuHHKa K8QvyQChKDasV802LMwa MaR4VHGyewGfY2QpCQUx cVloUxX0m8N8Hv6EOLc9 VZ40ZN35yOMpe3V4 wNF4O5HpLZNpqgqjwawo oAA7UHOyBGFakF82Kz4x bBsvJb1lLMPoSJC5SKHv nMWcR2ZkrS1aFrWe GEGeJKAqB5VclKIxZFgd D362FAmsQdI3OPMkekZs W3XdBWJtyAhlXqI9k7M3 Fs9ZDWLnAM56FXE4 jLO5TR32ZL08E5BxIbfn dGFibGU+PHRhYmxlIHdp ZHRoPScxMDAlJyBzdHls ZJ0nLo2iQJDvQSMw pAaeaIYnMiTrw4pyOJTa JJsgKT0hhEpjT3UgsQD4 FADgb5x5Nv51H41cW0Gc dXA+QPPriFB2yEK7 mM0tWrSfEfA6USurE332 YzMzxCHkQpovr5cnd5xo xQe9KaA1MRQereQgmZhs OXA9p8PgPy63S86r IHdpZHRoPSIxNSUiIHZh aSpyap4mzI3bUn6+PGNv aJP6uSH7pW2fLtYdFvE1 TCdnJ889PeVaiPNu Ssbep1bac9ecyOu4RkUn PBPeuwVihLnkPDH9n4Mt Ro52N9ArgSawu6QhLov8 ph24uTVjs4J1wWV6 X0CuSEYeujergTCsrIxv JX5jJWFxbnqdCFMtcJ6z IBEpU4x9WxDeBgT8DMkk V2QzswA9XQNqyGMo TXcoISY1T66sf9S7XKEm JSFpEFP5nCO1mS1sxBbr bjogbGVmdDsgdmVydGlj BBzbYWnwW392CQNq jMklTUUyzT5bFBUatEFz oKntKL5dCCEotionNxfB HBYBWgpvG9DRYInLRyrJ AA19V3RsEld9QBAh wQpnCA7zrNTjIZkxXs5b jEblaEdhJT1bFFHbieyo CEXyyR6pSWBkuHYzzQky KM7bKLBkvwdwb119 PfEnTRO3UWGqzVAgM1Uf hO8bZcFjXWNrNOAvQ3Fv sVHsIGbvJ044YFemUiH2 IYKoqsPyP0JtIHSw pHesBkM0r4O8Gh8zVk9f LN7yHTftGN47OE96mDBb b6N3hUS7F0TmDKNvogsm nvqgmND3LWGgKWSi zB16dJRzPNxlHr7nh7U5 p532SZRqHDCyaU99Qa5f yAdwORLtaEUFmE1uzefv d6hxcywdBnSfAOBd JBh1KPw7MYLaaMapOeJm GLE9SuP5VQP0yLVzhM5v yBerpbsfvR3xMeu+NTAg TDNnudT0Y1DyLxv9 XDRiwLpfXT1dnYIlKKdm Zq7nuZmkzNxoKV2fJVAj bxvhEVJowR7hZCPynXPo cOgvQS8kHPPqbtff w059YaRsPNU4RJBovNYk H8JqkX7lRtGfRHPgTWSx L5HnuKOdGAnyB537IHfh AgN1TDBxrcFrV6Ii SMMnlFbkGmL4x5G3Ni6S PY6kwQA7E4XnAsi0HGMb gPnkHF2nyGWwICypNf3i wItttMeqLR8sCWJl zsgdWJLxwH7bTVTovZLw hPezMU7cTKKcaabmw518 WpOzGEJ1QRDfcAIpO0Ha iG0eUuNkXFGuEYMu Y5VlrBWqJZfeY303EEvo AzZ9VKHrgeCmF7IeGHVc mAonBsB1v7Z6Yt9UfOEk TXRiOD03WY08PW27 W6JuQggyqZSpqIY+PHRh YmxlIHdpZHRoPScxMDAl IoGdeTcvPZ9yWm7vCILz LWNvbGxhcHNlOiBj n4jbTJHxNTaoNF3bsFeq O2AoaUI2LOMye7z5Dl00 C31rP2UhvES+PGNvbCB3 bAW4rY3yNvNwMaQ4 EWcxV761YhOvrKFkSzzg r2yps9ptiJu1IrDpTDOd qiHahYyyUSV9s3LhGe97 R42nBTygEYAgOQDd QLKaAEIljUhbug0egV4l Ii8+UYHfaLS0iAP6pE4f UlNzEzL7JDboG777KkWz eLLyOdfoF58iA5Yt dXA+CEExSjt1MGItoMiy FC7qePIuPTwvWg9zBIR0 ExAnIrQhHTafE2AsVECk tmitjbfyrJP8QVFu DFPtdP26Jc2qnGlkVv3n EDEqLUQ6HJJpmPEhV3Rn cM3nDxAtXDScWLEnI2Ov dLLjXVflN648ZZyv XfI3TZEknyNdH5QjBIKo wYpgXtH0b1R5Fr5IuAql aNZdJM7jZiIeQKj9T5Un Jga8CHSziTcwZN6m dTUdOUcwWp7oaAnlnBrh CT8lQFMjrhpcs204UgOe m2csVACvjNYaDBdtZVH1 A77zc4V6FPHyRMRl ZEO8uPX5aL3woIjjmtco bGVmdDsgdmVydGljYWwt AKkjL197PJIivYndVpHN Kwl3D8AdUjk2WQLe rKeiOQ7kkWBwQIquXb0h gJgyeVmdAB8fPPEiezjy k900AbUoi5xoYZVleMIl KWaxXRJ0D45tw1U4 PHFtKIObYIX1aCI8bU7s bGlnbjogbGVmdDsgdmVy xTysQRgqONihZ909XUZu kGunPv7CAii9J6Mu Yja6WPAioCqiOK2nsXYj RYyuJg1hlYmngCikNE5h ESBejlkty484LiQdb2or IDEwcHQgVGltZXM7 F45we5O1FARaHVRxSVO7 gXN0oO0uiWwfuskkjUHc dDsgdmVydGljYWwtYWxp E454TVAcfYkzUvBl eWVyOjwvdGQ+GW55lq96 H8RfTobmAht3MJMnEPL9 vDH7xP6wMYHdGCgqz3C2 jIJ4Q8NxxvGqhz9o b2xs (more content not included)... Normal [facility] Pre-Certification Formon Pre-Certification Form [id number] #1.00CD:127 Normal [facility] Consent for Treatmenton Consent for Treatment [id number] #1.00CD:127 Normal [facility] Heart and Vascular Office/Cl inic Noteon 08-08-2022 [...] influenza virus vaccine, inactivated 03/2019 Recorded Normal [facility] Comment on above: Result Comment: Elec tronically Signed By: Stanislaw CROCKER, Rita Long\.br\Date and Time Signed: 08/08/22 15:58 EST Physician Orderon 08-08-2022 Physician Order [id number] #1.00CD:127 Normal [facility] CNOVon 02-22-2022 CNOV Office Visit (LOORRM) JESSENIA WING ([id number]) 1970 F Date Time Provider Department 02/22/22 [...] Recommend conservative treatment with activity modification, ice, pqzj-gti-kkkuktg NSAID. If this becomes more significant she [...] (osteoarthritis) of (more content not included)... Normal [facility] XR KNEE 3V AP/LAT/MERCHANT L Ton [...] significant abnormality. ----- IMPRESSION: No acute findings. Living Nurse: PSCB Transcribe Date/Time: Feb 22 2022 2:43P Dictated by : CANDY FORMAN MD This examination was interpreted and the report reviewed and electronically signed by: CANDY FORMAN MD on Feb 22 2022 2:47PM EST [id number] Normal [facility] XR KNEE POST OP 3V AP/LAT/ME RCHANT LEFTon 02-22-2022 [facility] HEMATOLOGYOrdered By: Eloina Tinoco on 11-14-2021 Erythrocyte [...] Anion gap [Moles/Vol] 12 mmol/L Normal 9-18 [facility] Comment on above: Performed By: #### C BC, BMP ####[place] [phone] Calcium [Mass/Vol] 8.5 mg/dL Normal 8.5-10.2 [facility] Comment on above: Performed By: #### C BC, BMP ####[place] [phone] Chloride [Moles/Vol] 104 mmol/L Normal 97-105 [facility] Comment on above: Performed By: #### C BC, BMP ####[place] [phone] CO2 [Moles/Vol] 23 mmol/L Normal 22-30 [facility] Comment on above: Performed By: #### C BC, BMP ####[place] [phone] Creatinine [Mass/Vol] 0.79 mg/dL Normal 0.58-0.96 [facility] Comment on above: Performed By: #### C BC, BMP ####[place] [phone] eGFR- Amer. >60 Normal >60 [facility] Comment on above: Performed By: #### C BC, BMP ####[place] [phone] eGFR-All Other Races >60 Normal >60 [facility] Comment on above: Result Comment: eGFR (Estimated [...] GFR. Performed By: #### C BC, BMP ####[place] [address] [phone] Glucose [Mass/Vol] 127 mg/dL High 74-99 [facility] Comment on above: Performed By: #### C ANMOL, BMP ####[place] [address] Potassium [Moles/Vol] 4.6 mmol/L Normal 3.7-5.1 [facility] Comment on above: Performed By: #### C ANMOL, BMP ####[place] [address] [address] Sodium [Moles/Vol] 139 mmol/L Normal 136-144 [facility] Comment on above: Performed By: #### C ANMOL, BMP ####[place] [address] [phone] Urea nitrogen [Mass/Vol] 12 mg/dL Normal 7-21 [facility] Comment on above: Performed By: #### Js COREA, BMP ####[place] [address] [address] [phone] CASE MANAGEMon 12-21-2020 CASE MANAGEM HNO ID: [id number] Author: Kirstie Mcfarlane RN Service: Case Management [...] is recommended patient is agreeable to having [facility] to provide this service as they did following her initial knee surgery in November 2020. TRANSPORTATION ARRANGEMENTS: Transportation Arrangements: Car ADDITIONAL CONTACT RESOURCES Discharge home. No home care needs. SIGNATURE: Kirstie Mcfarlane RN PATIENT NAME: Jessenia Tovar Mecca DATE: December 21, 2020 TIME: 1:01 PM PAGER/CONTACT #: [phone] [facility] CASE MGT INALICE [place] 2020 CASE MGT INIT POOJA HNO ID: [id number] Author: Kirstie Mcfarlane RN Service: Case Management [...] symptoms;To improve my functional status Health Insurance: [email or web address] Health Issues Impacting Discharge Plan: Chronic Chronic: htn, asmtha Last Discharge Date: 11/19/16 Is this Within the Past 30 days? Last discharge within 30 days: No Advance Directive: Current Advance Directive: Health Care Power of Dermatopathologist In Chart: Yes Up To Date and [...] Walker Has the Patient Been in a Fdc Facility in the Past 30 days?: No SOCIAL: Living Arrangements: Home Lives With: Spouse Financial Resources: Employed Primary Contact: Extended Emergency Contact Information Primary Emergency Contact: Orlando Wing Address: [address] [place], [place] [address] [place] [address] OF [place] Mobile Relation: Spouse Supportive Patient Contact:: Yes [...] Completely I feel financially burdened by my dxo-ml-jcsbra expenses for my prescription medication:: 0 - Disagree Completely Risk Score: 0 Patient is categorized as: Low risk < 2 Are you interested in bedside delivery of your medications? Yes Is Patient Psychosocially Complex?: No ASSESSMENT AND PLAN: Medical Needs: Medical Needs: None Psychosocial Needs: Psychosocial Needs: None FREEDOM OF CHOICE EXPLAINED: [place] of Choice Given: Yes Level of Care [...] Tovar [place] DATE: December 21, 2020 TIME: 9:30 AM PAGER/CONTACT #: [phone] Normal [facility] CBCon 12-21-2020 Absolute nRBC <0.01 Normal <0.01 [facility] Comment on above: Performed By: #### C [place] ####[facility] [phone] Erythrocyte distribution width (RBC) [Ratio] 15.4 % High 11.5-15.0 [facility] Comment on above: Performed By: #### C ANMOL, BMP ####[address] Hematocrit (Bld) [Volume fraction] 29.8 % Low 36.0-46.0 [facility] Comment on above: Performed By: #### C ANMOL, BMP ####[address] Hemoglobin (Bld) [Mass/Vol] 9.3 g/dL Low 11.5-15.5 [facility] Comment on above: Performed By: #### C ANMOL, BMP ####[address] MCH 26.9 pG Normal 26.0-34.0 [facility] Comment on above: Performed By: #### C ANMOL, BMP ####[address] MCHC (RBC) [Mass/Vol] 31.2 g/dL Normal 30.5-36.0 [facility] Comment on above: Performed By: #### C ANMOL, BMP ####[address] MCV (RBC) [Entitic vol] 86.1 fL Normal 80.0-100.0 [facility] Comment on above: Performed By: #### C ANMOL, BMP ####[address] Platelet mean volume (Bld) [Entitic vol] 10.6 fL Normal 9.0-12.7 [facility] Comment on above: Performed By: #### C ANMOL, BMP ####[address] Platelets (Bld) [#/Vol] 110 10*3/uL Low 150-400 [facility] Comment on above: Performed By: #### C ANMOL, BMP ####[address] RBC (Bld) [#/Vol] 3.46 10*6/uL Low 3.90-5.20 [facility] Comment on above: Performed By: #### C BC, BMP ####[facility] [phone] WBC (Bld) [#/Vol] 6.64 10*3/uL Normal 3.70-11.00 [facility] Comment on above: Performed By: #### C BC, BMP ####[facility] [phone] CNDSon 12-21-2020 CNDS HNO ID: [id number] Author: Stanley Bunch PA-C Service: Orthopaedic Surgery Author Type: Physician Mixing Pan Tender Type: Discharge Summary Filed: 12/21/2020 9:31 AM Note Text: Attestation signed by Rex Meredith Jr., MD at 12/21/2020 10:11 AM agree DISCHARGE SUMMARY Patient Name: Jessenia Wing : 1970 ADMISSION DATE: 12/20/2020 DISCHARGE DATE: 12/21/20 Attending Physician: Rex Meredith Jr., MD Primary Diagnosis: Failure of total knee replacement, 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[facility]) [T84.664A, Z96.084] Operations During Hospitalization: Procedure(s) (LRB): REVISION JOINT [...] Discharge Medications: Jessenia Wing Home Medication Instructions JOE:[id number] Printed on:12/21/20 9824 Medication Information acetaminophen (TYLENOL EXTRA STRENGTH) 500 [...] Dept Phone 01/11/2021 11:30 AM DEISY GONZALEZ [phone] SIGNATURE: Stanley Bunch PA-C PATIENT NAME: Jessenia Wing DATE: 12/21/2020 TIME: 9:31 AM PAGER/CONTACT #: [phone] [facility] CONSULT PROGon 12-21-2020 CONSULT PROG HNO ID: [id number] Author: Toan Can MD Service: General Internal [...] (!) 50 16 98 % ? ? 12/20/203 121/82 36.5 ?C (97.7 ?F) Rectal (!) [...] meaning may be extrapolated by contextual derivation [facility] THERAPY NTon 12-21-2020 THERAPY NT HNO ID: [id number] Author: Paige Stockton, OTR/L Service: Occupational Therapy Author Type: Occupational Therapist Type: Therapy (PT/OT/Speech/Resp) Filed: 12/21/2020 12:41 PM Note Text: Occupational Therapy Evaluation SERVICE DATE: 12/21/2020 SERVICE TIME: 1151 to 1206 ROOM: [place] [address] Recommended Discharge Disposition: Home Anticipated Discharge Needs: [...] Occupational Therapy Problem List: Safety Deficits;Impaired Self Snf Environment Patient Lives With: Family Assistance Available: [...] living (ADL) Interventions Provided: Evaluation $ Evaluation-Low (18460) Billed Units: 1 unit Training AND education [...] DATE: December 21, 2020 TIME: 12:40 PM [facility] THERAPY NT HNO ID: [id number] Author: Kirsten Uriostegui, PT Service: Physical Therapy Author Type: Physical Therapist Type: Therapy (PT/OT/Speech/Resp) Filed: 12/21/2020 12:06 PM Note Text: Physical Therapy Evaluation SERVICE DATE: 12/21/2020 SERVICE TIME: 1059 to 1140 ROOM: [id number] Recommended Discharge Disposition: Outpatient Physical Therapy. Pt [...] excessive (initiating step thru with increased distance) -M: 8: Walk 250 feet or more Learning/Educational [...] walking-musculoskele carol Interventions Provided: Evaluation;Therapeut ic Exercise (36936);Gait Training (35254) $ Evaluation-Low (41961) Billed Units: 1 unit Therapeutic Exercise (28618) Treatment Minutes: 10 $ Therapeutic Exercise (08136) Billed Units: 1 unit Gai (more content not included)... [facility] ANES POSTPROC EVALon 021 ANES POSTPROC EVAL HNO ID: [id number] Author: Zeke Prajapati II, DO Service: Anesthesiology Author Type: Anesthesiologist Type: Anesthesia Postprocedure Evaluation Filed: 12/20/2020 4:27 PM Note Text: POST ANESTHESIA EVALUATION NOTE : 1970 Procedure Summary Date: 12/20/20 Room / Location: OR / [facility] OR Anesthesia Start: 1223 Anesthesia Stop: 1607 Procedure: REVISION JOINT TOTAL KNEE FEMORAL AND ENTIRE TIBIAL COMPONENT (Left Knee) Diagnosis: Failure of total knee replacement, 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[facility]) (Failure of total knee replacement, 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[facility]) [T84.018A, Z96.659]) Surgeons: Rex Meredith Jr., MD [...] December 20, 2020 TIME: 4:27 PM CSN: [id number] [facility] ANES PRE-OPon 12-20-2020 ANES PRE-OP HNO ID: [id number] Author: Adan Viera MD Service: Anesthesiology Author [...] December 20, 2020 TIME: 11:29 AM CSN: [id number] [facility] Anaerobe Cultureon Anaerobe Culture Culture Result - Negative for anaerobes. No Cutibacterium (Propionibacterium) acnes isolated. [facility] Comment on above: Performed By: #### A NACUL ####[facility] [place], [place] [phone] BRIEF OP NOTon 12-20-2020 BRIEF OP NOT HNO ID: [id number] Author: Rex Meredith Jr., MD Service: Orthopaedic Surgery Author Type: Physician Type: Brief Op Note Filed: 12/20/2020 3:24 PM Note Text: OPERATIVE/PROCEDURE REPORT LOG ID: [id number] SURGERY/PROCEDURE DATE: 12/20/2020 INCISION/PROCEDURE START TIME: 1:19 PM INCISION CLOSE/PROCEDURE END TIME: 1523 SURGEON(S)/PROCEDURA LIST(S) AND SENIOR COMMERCIAL LOAN OFFICER(S): Surgeon(s) and Role: * Rex Meredith Jr., MD - Primary Physician Mixing Pan Tender: Wilver Newberry PA-C; Deisy Gonzalez PA-C SURGERY/PROCEDURE(S) [...] December 20, 2020 TIME: 3:23 PM Normal [facility] Basic Metabolic Panlon 12-20 Anion gap [Moles/Vol] 10 mmol/L Normal 9-18 [facility] Comment on above: Performed By: #### C BC, BMP ####[place] [phone] Calcium [Mass/Vol] 8.5 mg/dL Normal 8.5-10.2 [facility] Comment on above: Performed By: #### C BC, BMP ####[address] Chloride [Moles/Vol] 111 mmol/L High 97-105 [facility] Comment on above: Performed By: #### C BC, BMP ####[place] [phone] CO2 [Moles/Vol] 23 mmol/L Normal 22-30 [facility] Comment on above: Performed By: #### C BC, BMP ####[place] [phone] Creatinine [Mass/Vol] 0.73 mg/dL Normal 0.58-0.96 [facility] Comment on above: Performed By: #### C BC, BMP ####[place] [phone] eGFR- Amer. >60 Normal >60 [facility] Comment on above: Performed By: #### C BC, BMP ####[address] eGFR-All Other Races >60 Normal >60 [facility] Comment on above: Result Comment: eGFR (Estimated [...] GFR. Performed By: #### C ANMOL, BMP ####[address] Glucose [Mass/Vol] 140 mg/dL High 74-99 [facility] Comment on above: Performed By: #### C BC, BMP ####[address] Potassium [Moles/Vol] 5.0 mmol/L Normal 3.7-5.1 [facility] Comment on above: Performed By: #### C BC, BMP ####[address] Sodium [Moles/Vol] 144 mmol/L Normal 136-144 [facility] Comment on above: Performed By: #### C BC, BMP ####[address] Urea nitrogen [Mass/Vol] 9 mg/dL Normal 7-21 [facility] Comment on above: Performed By: #### C BC, BMP ####[place] [phone] CBCon 12-20-2020 Absolute nRBC <0.01 Normal <0.01 [facility] Comment on above: Performed By: #### C BC, BMP ####[place] [phone] Erythrocyte distribution width (RBC) [Ratio] 15.8 % High 11.5-15.0 [facility] Comment on above: Performed By: #### C ANMOL, BMP ####[place] [phone] Hematocrit (Bld) [Volume fraction] 33.1 % Low 36.0-46.0 [facility] Comment on above: Performed By: #### C ANMOL, BMP ####[place] [phone] Hemoglobin (Bld) [Mass/Vol] 10.4 g/dL Low 11.5-15.5 [facility] Comment on above: Performed By: #### C ANMOL, BMP ####[place] [id number] MCH 27.2 pG Normal 26.0-34.0 [facility] Comment on above: Performed By: #### C ANMOL, BMP ####[address] MCHC (RBC) [Mass/Vol] 31.4 g/dL Normal 30.5-36.0 [facility] Comment on above: Performed By: #### C ANMOL, BMP ####[address] MCV (RBC) [Entitic vol] 86.4 fL Normal 80.0-100.0 [facility] Comment on above: Performed By: #### C ANMOL, BMP ####[place] [phone] Platelet mean volume (Bld) [Entitic vol] 11.0 fL Normal 9.0-12.7 [facility] Comment on above: Performed By: #### C ANMOL, BMP ####[address] Platelets (Bld) [#/Vol] 120 10*3/uL Low 150-400 [facility] Comment on above: Performed By: #### C ANMOL, BMP ####[facility] [phone] RBC (Bld) [#/Vol] 3.83 10*6/uL Low 3.90-5.20 [facility] Comment on above: Performed By: #### C BC, BMP ####[facility] [phone] WBC (Bld) [#/Vol] 6.04 10*3/uL Normal 3.70-11.00 [facility] Comment on above: Performed By: #### C BC, BMP ####[facility] [phone] CONSULTon 12-20-2020 CONSULT HNO ID: [id number] Author: Toan Can MD Service: General Internal [...] 12/20/20 1630 102/ (more content not included)... [facility] NURSING PROGon 12-20-2020 NURSING PROG HNO ID: [id number] Author: Cherie Rose RN Service: Nursing Author Type: Registered Nurse Type: Nursing Progress Note Filed: 12/20/2020 5:21 PM Note Text: Nursing Progress Note Patient Name: Jessenia Srivastavar Patient Location: [address]/[facility] D- Transfer Note: Patient transferred into room/unit 502-2 in stable condition. Actions taken: Patient and family oriented to 5D unit policies and procedures. Educated on falls risks, falls precautions, and use of call almeida prior to getting OOB. Patient resting in bed. Call light within reach. All needs met at this time. This note was completed by: Cherie Rose [facility] OPERATIVE NOon 12-20-2020 OPERATIVE NO HNO ID: [id number] Author: Rex Meredith Jr., MD Service: Orthopaedic Surgery Author Type: Physician Type: Operative Report Filed: 12/21/2020 8:04 AM Note Text: OPERATIVE/PROCEDURE REPORT LOG ID: [id number] SURGERY/PROCEDURE DATE: 12/20/2020 INCISION/PROCEDURE START TIME: 1:19 PM INCISION CLOSE/PROCEDURE END TIME: 3:54 PM SURGEON(S)/PROCEDURA LIST(S) AND SENIOR COMMERCIAL LOAN OFFICER(S): Surgeon(s) and Role: * Rex Meredith Jr., MD - Primary Physician Mixing Pan Tender: Wilver Newberry PA-C; Deisy Gonzalez PA-C - Aline was editorial assistant; his assistance consisted of assistance with positioning, retraction and closing the wound SURGERY/PROCEDURE(S) : Left total knee revision ANESTHESIA: Spinal SURGERY/PROCEDURE DETAILS: Left total knee revision PRE-OP/PRE-PROCEDURE DIAGNOSIS: 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 The femur consisted of a size [...] the tibial component was removed with a [place]. It was grossly loose. The cement mantle [...] with n (more content not included)... Normal [facility] SURGICAL PATHOLOGYon 021 SURGICAL PATHOLOGY Specimen originated from [facility] Specimen #: [id number] Submitting Physician: REX MEREDITH JR, MD FINAL DIAGNOSIS Hardware, left knee, removal - Unremarkable hardware (gross examination only). APH/KVB/lbk 12/21/2020 Gaston Florez M.D. (Electronic Signature) SPECIMEN SUBMITTED A: REMOVED HARDWARE FROM LEFT KNEE CLINICAL DATA FAILURE OF TOTAL KNEE REPLACEMENT, INITIAL ENCOUNTER ([facility]); LEFT TOTAL KNEE REVISION GROSS [...] on the polyethylene articular insert saying LEFT [id number] . No tissue is present. No sections are submitted. The specimen is for gross examination only. The specimen is reviewed by Dr. Florez. Gross examination performed at [facility], [address] [place] [address] KVB/lbk 12/21/2020 Date of Report: 12/22/2020 Date of Procedure: 12/20/2020 Date of Receipt: 12/20/2020 Submitted by: REX MEREDITH JR, MD Location: [facility] Diagnostic interpretation performed at [facility], [address] [place] [address], [place] [address]. CLIA Number: [id number] [facility] Wound Culture/Stainon 2020 Wound Culture/Stain Sp. Request/Comment: - Specimen received in anaerobic transport medium. Smear Result - No organisms seen No Polymorphonuclear Leukocytes Culture Result - No growth 2 days [facility] Comment on above: Performed By: #### W CUL ####[facility] [id number] [place], [place] [address]JbbpybvbkSelect [facility] [address]ems[address] [place], [place] [phone] Type and SCR (30D)on 021 ABO/RH(D) Positive Normal [facility] Comment on above: Performed By: #### T SCR30 ####[facility] [phone] Large Joint Arthro/Inj: R kn ee joint [facility] Vital Signs Date Time Vital Sign Value Performing Clinician Faci litzuleika 06-27-2023 10:58-0500 Diastolic blood pressure 96 mm[Hg] DIANA CEJA [facility] 06-27-2023 10:58-0500 Mean blood pressure 107 mm[Hg] DIANA CEJA [facility] 06-27-2023 10:58-0500 Systolic blood pressure 130 mm[Hg] DIANA CEJA [facility] 06-27-2023 10:47-0500 Diastolic blood pressure 92 mm[Hg] DIANA CEJA [facility] 06-27-2023 10:47-0500 Mean blood pressure 104 mm[Hg] DIANA CEJA [facility] 06-27-2023 10:47-0500 Systolic blood pressure 128 mm[Hg] DIANA CEJA [facility] 06-27-2023 10:29-0500 Blood Pressure Location DIANA CEJA [facility] 06-27-2023 10:29-0500 Body temperature 97.88 [degF] DIANA CEJA [facility] 06-27-2023 10:29-0500 Diastolic blood pressure 64 mm[Hg] DIANA CEJA [facility] 06-27-2023 10:29-0500 Heart rate 77 /min DIANA CEJA [facility] 06-27-2023 10:29-0500 Respiratory rate 24 /min DIANA CEJA [facility] 06-27-2023 10:29-0500 SaO2% (BldA) [Mass fraction] 98 % DIANA CEJA [facility] 06-27-2023 10:29-0500 Systolic blood pressure 116 mm[Hg] DIANA CEJA [facility] 06-26-2023 20:47-0500 Diastolic blood pressure 104 mm[Hg] Everardo Dilma [facility] 06-26-2023 20:47-0500 Heart rate 98 /min Everardo Dilma [facility] 06-26-2023 20:47-0500 Mean blood pressure 125 mm[Hg] Everardo Dilma [facility] 06-26-2023 20:47-0500 Respiratory rate 18 /min Everardo Dilma [facility] 06-26-2023 20:47-0500 SaO2% (BldA) [Mass fraction] 97 % Everardo Dilma [facility] 06-26-2023 20:47-0500 Systolic blood pressure 166 mm[Hg] Everardo Dilma [facility] 06-26-2023 20:25-0500 Diastolic blood pressure 119 mm[Hg] Everardo Dilma [facility] 06-26-2023 20:25-0500 Heart rate 92 /min Everardo Dilma [facility] 06-26-2023 20:25-0500 Hourly Rounding Everardo Dilma [facility] 06-26-2023 20:25-0500 Mean blood pressure 139 mm[Hg] Everardo Dilma [facility] 06-26-2023 20:25-0500 Respiratory rate 21 /min Everardo Dilma [facility] 06-26-2023 20:25-0500 SaO2% (BldA) [Mass fraction] 97 % Everardo Dilma [facility] 06-26-2023 20:25-0500 Systolic blood pressure 180 mm[Hg] Everardo Dilma [facility] 06-26-2023 20:17-0500 Diastolic blood pressure 119 mm[Hg] Everardo Dilma [facility] 06-26-2023 20:17-0500 Systolic blood pressure 180 mm[Hg] Everardo Dilma [facility] 06-26-2023 19:25-0500 Heart rate 86 /min Everardo Dilma [facility] 06-26-2023 19:25-0500 Hourly Rounding Everardo Hatche [facility] 06-26-2023 19:25-0500 Mean blood pressure 151 mm[Hg] Everardo Dilma [facility] 06-26-2023 19:25-0500 Promise to Return Everardo Dilma [facility] 06-26-2023 19:25-0500 Respiratory rate 17 /min Everardo Perera [facility] 06-26-2023 19:25-0500 SaO2% (BldA) [Mass fraction] 98 % Everardo Perera [facility] 06-26-2023 18:37-0500 Body temperature 98.24 [degF] Everardo Perera [facility] 06-26-2023 18:37-0500 Heart rate 99 /min Everardo Perera [facility] 06-26-2023 18:37-0500 Respiratory rate 16 /min Everardo Perera [facility] 03-05-2023 15:25-0400 Diastolic blood pressure 96 mm[Hg] Morena Soham [facility] 03-05-2023 15:25-0400 Mean blood pressure 111 mm[Hg] Morena Soham [facility] 03-05-2023 15:25-0400 Systolic blood pressure 140 mm[Hg] Morena Soham [facility] 03-05-2023 15:09-0400 Diastolic blood pressure 116 mm[Hg] Morena Soham [facility] 03-05-2023 15:09-0400 Mean blood pressure 127 mm[Hg] Morena Soham [facility] 03-05-2023 15:09-0400 Systolic blood pressure 149 mm[Hg] Morena Soham [facility] 03-05-2023 15:06-0400 Blood Pressure Location Morena Soham [facility] 03-05-2023 15:06-0400 Body temperature 97.52 [degF] Morena Rousseau [facility] 03-05-2023 15:06-0400 Diastolic blood pressure 103 mm[Hg] Morena Hinesmetz [facility] 03-05-2023 15:06-0400 Heart rate 73 /min Morena Hinesmetz [facility] 03-05-2023 15:06-0400 Systolic blood pressure 142 mm[Hg] Morena Hinesmetz [facility] 02-05-2023 13:54-0400 Blood Pressure Location Parker SALAM [facility] 02-05-2023 13:54-0400 Diastolic blood pressure 114 mm[Hg] Parker SALAM [facility] 02-05-2023 13:54-0400 Heart rate 64 /min Parker SALAM [facility] 02-05-2023 13:54-0400 Respiratory rate 21 /min Parker SALAM [facility] 02-05-2023 13:54-0400 SaO2% (BldA) [Mass fraction] 100 % Parker SALAM [facility] 02-05-2023 13:54-0400 Systolic blood pressure 155 mm[Hg] Parker SALAM [facility] 02-05-2023 13:44-0400 Blood Pressure Location Parker SALAM [facility] 02-05-2023 13:44-0400 Diastolic blood pressure 94 mm[Hg] Parker SALAM [facility] 02-05-2023 13:44-0400 Heart rate 62 /min Parker SALAM [facility] 02-05-2023 13:44-0400 Respiratory rate 19 /min Parker SALAM [facility] 02-05-2023 13:44-0400 SaO2% (BldA) [Mass fraction] 99 % Parker SALAM [facility] 02-05-2023 13:44-0400 Systolic blood pressure 149 mm[Hg] Parker SALAM [facility] 02-05-2023 13:39-0400 Blood Pressure Location Parker SALAM [facility] 02-05-2023 13:39-0400 Diastolic blood pressure 94 mm[Hg] Parker SALAM [facility] 02-05-2023 13:39-0400 Heart rate 64 /min Parker SALAM [facility] 02-05-2023 13:39-0400 Respiratory rate 12 /min Parker SALAM [facility] 02-05-2023 13:39-0400 SaO2% (BldA) [Mass fraction] 99 % Parker SALAM [facility] 02-05-2023 13:39-0400 Systolic blood pressure 138 mm[Hg] Parker SALAM [facility] 02-05-2023 13:29-0400 Body temperature 97.16 [degF] Parker SALAM [facility] 02-05-2023 13:25-0400 Respiratory rate 18 /min Parker SALAM [facility] 02-05-2023 13:20-0400 Respiratory rate 18 /min Parker SALAM [facility] 02-05-2023 13:15-0400 Respiratory rate 16 /min Parker SALAM [facility] 02-05-2023 12:18-0400 Body temperature 97.88 [degF] Parker SALAM [facility] 12-25-2022 10:32-0400 Body height 167.6 cm Marko Torreuh PA-C Work Phone: [facility] 12-25-2022 10:32-0400 Body weight 106.05 kg Marko Bandsuh PA-C Work Phone: [facility] 12-25-2022 10:32-0400 Diastolic blood pressure 78 mm[Hg] Marko Bandsuh PA-C Work Phone: [facility] 12-25-2022 10:32-0400 Heart rate 60 /min Marko Bandsuh PA-C Work Phone: [facility] 12-25-2022 10:32-0400 Systolic blood pressure 112 mm[Hg] Marko Bandsuh PA-C Work Phone: [facility] 12-18-2022 09:27-0400 Blood Pressure Location Parker SALAM [facility] 12-18-2022 09:27-0400 Diastolic blood pressure 85 mm[Hg] Parker SALAM [facility] 12-18-2022 09:27-0400 Heart rate 66 /min Parker SALAM [facility] 12-18-2022 09:27-0400 Respiratory rate 16 /min Parker SALAM [facility] 12-18-2022 09:27-0400 SaO2% (BldA) [Mass fraction] 96 % Parker SALAM [facility] 12-18-2022 09:27-0400 Systolic blood pressure 121 mm[Hg] Parker SALAM [facility] 10-25-2022 14:31-0400 Blood Pressure Location ANA SIDELL [facility] 10-25-2022 14:31-0400 Body temperature 98.06 [degF] ANA SIDELL [facility] 10-25-2022 14:31-0400 Diastolic blood pressure 82 mm[Hg] ANA SIDELL [facility] 10-25-2022 14:31-0400 Heart rate 81 /min ANA SIDELL [facility] 10-25-2022 14:31-0400 SaO2% (BldA) [Mass fraction] 98 % ANA SIDELL [facility] 10-25-2022 14:31-0400 Systolic blood pressure 144 mm[Hg] ANA SIDELL [facility] 08-08-2022 15:51-0500 Diastolic blood pressure 97 mm[Hg] Rita Stanislaw [facility] 08-08-2022 15:51-0500 Mean blood pressure 111 mm[Hg] Mohamed Stanislaw [facility] 08-08-2022 15:51-0500 Systolic blood pressure 139 mm[Hg] Mohamed Stanislaw [facility] 08-08-2022 15:39-0500 Blood Pressure Location Mohamed Stanislaw [facility] 08-08-2022 15:39-0500 Diastolic blood pressure 94 mm[Hg] Mohamed Stanislaw [facility] 08-08-2022 15:39-0500 Heart rate 72 /min Rita Dover [facility] 08-08-2022 15:39-0500 SaO2% (BldA) [Mass fraction] 98 % Rita Dover [facility] 08-08-2022 15:39-0500 Systolic blood pressure 137 mm[Hg] Rita Dover [facility] 05-16-2022 14:27-0500 Blood Pressure Location Rita Dover [facility] 05-16-2022 14:27-0500 Diastolic blood pressure 86 mm[Hg] Rita Dover [facility] 05-16-2022 14:27-0500 Heart rate 71 /min Rita Dover [facility] 05-16-2022 14:27-0500 SaO2% (BldA) [Mass fraction] 98 % Rita Dover [facility] 05-16-2022 14:27-0500 Systolic blood pressure 120 mm[Hg] Rita Dover [facility] 11-06-2021 13:52-0400 Body temperature 98.42 [degF] [facility] 11-06-2021 13:52-0400 Diastolic blood pressure 90 mm[Hg] [facility] 11-06-2021 13:52-0400 Heart rate 59 /min [facility] 11-06-2021 13:52-0400 SaO2% (BldA) [Mass fraction] 96 % [facility] 11-06-2021 13:52-0400 Systolic blood pressure 120 mm[Hg] Levon Webber [facility] Encounters Encounter Date Encounter Type Care Provider Facility Start: 07-18-2023 End: 07-18-2023 Patient encounter procedure DIANA CEJA [facility] Start: 06-27-2023 End: 06-28-2023 ambulatory INFORMATION SECURITY ANALYST-C DIANA CEJA Facility:[facility] Start: 06-27-2023 End: 06-27-2023 Patient encounter procedure DIANA CEJA [facility] [place] Start: 06-26-2023 End: 06-26-2023 Emergency department patient visit Everardo Perera Facility:[facility] Start: 06-26-2023 End: 06-26-2023 Emergency department patient visit Everardo Perera [facility] Start: 06-26-2023 End: 06-27-2023 ambulatory SELF REFERRAL Facility:[facility] Start: 06-26-2023 End: 06-26-2023 Patient encounter procedure Everardo Davis [facility] Start: 06-05-2023 End: 06-06-2023 ambulatory Morena Rousseau [facility] Start: 06-05-2023 End: 06-05-2023 Patient encounter procedure Morena A Soham [facility] Start: 03-05-2023 End: 03-06-2023 ambulatory Morena A Soham [facility] Start: 03-05-2023 End: 03-05-2023 Patient encounter procedure Morena A Soham [facility] Start: 02-05-2023 End: 02-06-[address] [facility] Facility:[facility] Start: 02-05-2023 End: 02-05-2023 Patient encounter procedure Keith MARTIN [facility] Start: 12-25-2022 End: 12-25-2022 ambulatory MARKO TORRE Facility:[facility] Start: 12-25-2022 End: 12-25-2022 Patient encounter procedure Marko Torre PA-C Work Phone: Orthopedics Comment on above: S/P revision of tota l knee, left (Primary Dx); Primary osteoarthritis of right knee Start: 12-18-2022 End: 12-19-[address] [facility] Start: 12-18-2022 End: 12-18-2022 Patient encounter procedure [facility] Start: 12-16-2022 End: 12-17-2022 ambulatory Sri PUGA Facility:[facility] Start: 12-16-2022 End: 12-17-2022 ambulatory Sri PUGA Facility:[facility] Start: 11-22-2022 End: 11-23-2022 ambulatory ANA CHÁVEZ Facility:[facility] Start: 11-03-2022 End: 11-04-2022 ambulatory Kimmy Scott Facility:[facility] Start: 10-28-2022 ambulatory Keith CHUNG Facility: [facility] Start: 10-25-2022 End: 10-26-2022 ambulatory ANA CHÁVEZ Facility:[facility] Start: 10-25-2022 End: 10-25-2022 Patient encounter procedure ANA CHÁVEZ [facility] [place] Start: 09-02-2022 End: 09-02-2022 ambulatory Rita Dover Facility:[facility] Start: 09-02-2022 End: 09-02-2022 Admission to same day surgery center Rita Dover [facility] Start: 08-08-2022 End: 08-09-2022 ambulatory Rita Dover [facility] [facility] Start: 08-08-2022 End: 08-08-2022 Patient encounter procedure Rita Dover [facility] Start: 05-29-2022 End: 05-29-2022 Patient encounter procedure Jerel Banks [facility] Start: 05-20-2022 End: 05-20-2022 Patient encounter procedure Jerel Banks [facility] Start: 05-16-2022 End: 05-16-2022 Patient encounter procedure Rita Dover [facility] Start: 02-22-2022 End: 02-22-2022 Orders Only Augustus Pereira MD Work Phone: Orthopaedics Comment on above: S/P revision of tota l knee, left (Primary Dx) Start: 11-14-2021 End: 11-14-2021 Patient encounter procedure Levon Webber [facility] Start: 11-06-2021 End: 11-06-2021 Patient encounter procedure Levon Webber [facility] Start: 11-06-2021 End: 11-06-2021 Patient encounter procedure [facility] Vargas [facility] Procedures Date Procedure Procedure [...] above: Performed By: #### [id number] ####Mele Maldonado [id number] [address] [phone] Start: 10-05-2020 Injection of sclerosing agent Levon [...] Levon Webber incisional hernia repair 3 R omairaanjana Webber Comment on above: x2 with mesh Plan of Treatment Date Care Activity Detail Author Start: 12-26-2023 BP CONTROLLED (<130/80) BP CONTROLLE D (<130/80) [facility] Start: 12-22-2023 DIABETES SCREEN DIABETES SCREEN [facility] Start: 07-07-2022 DEPRESSION ASSESSMENT DEPRESSION ASS ESSMENT [facility] Start: 03-07-2022 Influenza vaccination INFLUENZA (#1) [facility] Start: 12-12-2021 COVID-19 VACCINE (4 - Booster for Pfizer series) COVID-19 VACCINE (4 - Booster for Pfizer series) [facility] Start: 12-12-2021 SHINGRIX VACCINE (1 of 2) SHINGRIX V ACCINE (1 of 2) [facility] Start: 09-10-2021 COVID-19 VACCINE (4 - Booster for Pfizer series) COVID-19 VACCINE (4 - Booster for Pfizer series) [facility] Start: 12-12-2016 COLOGUARD (FIT-DNA) COLOGUARD (FIT-D NA) [facility] Start: 12-12-2016 Colonoscopy COLONOSCOPY [facility] Start: 12-12-2016 COLORECTAL CANCER SCREENING COLORECTAL CANCER SCREENING [facility] Start: 12-12-[address] COLONOGRAPHY [facility] Start: 12-12-2016 FECAL OCCULT BLOOD FECAL OCCULT BLOO D [facility] Start: 12-12-2016 LIPID SCREEN LIPID SCREEN [facility] Start: 12-12-2016 SIGMOIDOSCOPY SIGMOIDOSCOPY [facility] Start: 2011 Mammography MAMMOGRAM [facility] Start: 12-12-2001 HPV TESTING HPV TESTING [facility] Start: 12-12-1992 PAP TESTING PAP TESTING [facility] Start: 12-12-1990 Urine microalbumin profile DTAP,TDAP ,TD (1 - Tdap) [facility] Start: 12-12-1989 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 ANNUAL PCP TEAM CHRONIC DISEASE VISIT [facility] Start: 12-12-1989 BP CONTROLLED (<130/80) BP CONTROLLE D (<130/80) [facility] Start: 12-12-1989 HEPATITIS C SCREENING HEPATITIS C SC REENING [facility] Start: 12-12-1989 HIV SCREENING HIV SCREENING [facility] Start: 12-12-1989 SPIROMETRY SPIROMETRY [facility] Start: 1983 Adult depression scr eening assessment DEPRESSION SCREENING [facility] Start: 12-12-1977 PNEUMOCOCCAL (1 - PCV) PNEUMOCOCCAL (1 - PCV) [facility] Start: 1971 HEPATITIS B (1 of 3 - 3-dose series) HEPATITIS B (1 of 3 - 3-dose series) [facility] Immunizations Immunization Date Immunization Notes Care Provider Fa cility 03-11-2023 influenza virus vaccine, unspecified formulation Morena Rousseau [facility] 03-12-2022 influenza virus vaccine, unspecified formulation Keith CHUNG [facility] 07-16-2021 SARS-CoV-2 mRNA (grymltjlhqf-xzgf-klskj se) vaccine Keith CHUNG [facility] 04-03-2021 influenza virus vaccine, unspecified formulation [facility] 09-08-2020 SARS-CoV-2 (COVID-19 ) mRNA BNT-162b2 vax [facility] 08-18-2020 SARS-CoV-2 (COVID-19 ) mRNA BNT-162b2 vax [facility] 03-07-2019 influenza virus vaccine, unspecified formulation [facility] Payers Date Payer Category Payer Unknown [id number] 2011 Unknown [id number] 2011 Unknown [id number] 1971 Unknown [id number] 2.16.8 40.1.291839.3.579.2. 1971 Unknown [id number] 2.16.8 40.1.842977.3.579.2. 1971 Unknown [id number] 2.16.8 40.1.762492.3.579.2.7 1971 Unknown [id number] 2.16.8 40.1.422000.3.579.2.727 1971 Unknown [id number] 2.16.8 40.1.029378.3.579.2. 1971 Unknown [id number] 2.16.8 40.1.203311.3.579.2. 1971 Unknown [id number] 2.16.8 40.1.946136.3.579.2.7 1971 Unknown [id number] 2.16.8 40.1.515306.3.579.2. 1971 Unknown [id number] 2.16.8 40.1.967934.3.579.2.727 1971 Unknown [id number] 2.16.8 40.1.138058.3.579.2.727 1971 Unknown [id number] 2.16.8 40.1.671218.3.579.2.727 1971 Unknown [id number] 2.16.8 40.1.902001.3.579.2.727 1971 Unknown [id number] 2.16.8 40.1.947337.3.579.2.727 1971 Unknown [id number] 2.16.8 40.1.355572.3.579.2.727 Social History Date Type Detail Facility Start: 11-06-2021 End: 06-27-2023 Tobacco smoking status Never smoked tobacco (finding) [facility] Comment on above: Denies Tobacco smoking status Never [facility] Comment on above: Denies Sex Assigned At Female [facility] Start: 11-19-2011 Tobacco use and exposure Smokeless tobacco non-user [facility] Start: 12-20-2020 End: 12-25-2022 Alcohol intake Current drinker of alcohol (finding) [facility] Start: 11-30-2020 History SDOH Alcohol Comment social-weekends [facility] Start: 1970 Sex Assigned At Not on file [facility] Start: 02-12-2022 End: 02-22-2022 Exposure to SARS-CoV-2 (event) Not sure [facility] Medical Equipment Procedure Code Equipment Code Equipment Origin al Text Equipment Identifier Dates Fidencio Bn Smplx Hv Gentamicin Fd - [id number] Start: 11-18-2016 Cement Simplex P Tobramycin Bone Full Dose Radiopaque Preblend Sterile - [id number] Start: 12-20-2020 Surface 6-9 Cd Vivacit-E 11mm Articular Knee - [id number] Start: 11-18-2016 Extension Triath luisana 25mm Stem Total Stabilize Knee Femur - [id number] Start: 12-20-2020 Baseplate Person a 5d D Tivanium Tibial Cemented Stem Knee Left - [id number] Start: 11-18-2016 Restrictor Univmacario rsal Cement Disposable Juvenile Court Liaison - [id number] Start: 12-20-2020 Functional Status Date Assessment Result Facility 06-27-2023 Functional Status N/A [facility] 06-26-2023 Functional Status N/A [facility] 03-05-2023 Functional Status N/A [facility] 02-05-2023 Functional Status N/A [facility] 12-18-2022 Functional Status N/A [facility] 10-25-2022 Functional Status N/A [facility] 08-08-2022 Functional Status No [facility] 05-16-2022 Functional Status No [facility] Clinical Notes 11-18-2016 to 06-27-2023 Note Date [...] are safe for you. General instructions Take aqsc-ybz-xapbmub and prescription medicines only as told by [...] provider. Document Revised: 10/11/2020 Document Reviewed: 12/21/2019 [employer] Patient Education 2022 [employer]. 06/27/2023 12:02:19 Cough, Adult Cough, Adult Coughing [...] Follow these instructions at home: Medicines Take dith-yrr-ymwlpyb and prescription medicines only as told by [...] of a condition that needs treatment. Take xfhl-kgx-gipahnn and prescription medicines only as told by [...] provider. Document Revised: 07/12/2019 Document Reviewed: 07/12/2019 [employer] Patient Education 2022 [employer]. [facility] [place] 06-26-2023 Hospital Discharge instructions Patient Education 06/26/2023 [...] more information National Heart, Lung, and Blood [place]: www.nhlbi.nih.gov [place] [employer] Association: www.heart.org Contact a health care [...] provider. Document Revised: 03/07/2022 Document Reviewed: 03/07/2022 [employer] Patient Education 2022 [employer]. 06/26/2023 20:53:28 Migraine Headache Migraine Headache A [...] Follow these instructions at home: Medicines Take nbtk-zbv-yojnqkc and prescription medicines only as told by your health care provider. Ask your health care provider if the medicine prescribed to you: ?Requires you to avoid driving or using heavy machinery. ?Can cause constipation. You may need to take these actions to prevent or treat constipation: ?Drink enough fluid to keep your urine pale yellow. ?Take ebgy-ykk-oeretvp or prescription medicines. ?Eat foods that are [...] provider. Document Revised: 10/15/2019 Document Reviewed: 08/05/2019 [employer] Patient Education 2022 [employer]. Follow Up Care 06/26/2023 18:32:26 With:Pb BAUMAN Address: [address] [place] [address] [place] [phone] Business (1) When:06/29/2023 20:47:03 Comments:Follow-up with your primary care provider in 3 to 5 days. If symptoms worsen, do not improve, or new symptoms arise please report back to emergency department for further evaluation. Continue to monitor your blood pressure, and you may start 20 mg of lisinopril daily. [facility] 03-05-2023 Hospital Discharge instructions Patient Education [...] overweight. Not getting enough exercise. Smoking. Taking lmtk-coa-avammbs pain medicines, like aspirin and ibuprofen. Having [...] Follow these instructions at home: Medicines Take vfpg-htt-glodtae and prescription medicines only as told by your health care provider. If told by your health care provider, take a fiber supplement or probiotic. Constipation prevention Your condition may cause constipation. To prevent or treat constipation, you may need to: Drink enough fluid to keep your urine pale yellow. Take hfjk-tmz-ehebyzd or prescription medicines. Eat foods that are [...] provider. Document Revised: 01/20/2020 Document Reviewed: 01/20/2020 [employer] Patient Education 2022 [employer]. 03/05/2023 15:03:18 Peptic Ulcer Peptic Ulcer A [...] quitting, ask your health care provider. Take sxlo-bly-uszffco and prescription medicines only as told by your health care provider. ?Do not use qooe-jaa-krmigwp medicines in place of prescription medicines unless [...] quitting, ask your health care provider. Take zefz-mri-rtetfba and prescription medicines only as told by your health care provider. Do not use lvak-mhq-gmrmuuc medicines in place of prescription medicines unless your health care provider approves. Limit your alcohol and caffeine intake. Keep all follow-up visits. This is important. This information is not intended to replace advice given to you by your health care provider. Make sure you discuss any questions you have with your health care provider. Document Revised: 02/01/2022 Document Reviewed: 02/01/2022 [employer] Patient Education 2022 [employer]. Follow Up Care 02/19/2023 08:31:55 With:Morena Rousseau CNP Address: When:3 months [facility] 02-06-2023 Note [id number]#1.00CD:127 [facility] 02-05-2023 Hospital Discharge instructions Patient Education [...] what activities are safe for you. Take uynq-tgd-zfexrkx and prescription medicines only as told by [...] provider. Document Revised: 04/28/2020 Document Reviewed: 11/23/2018 [employer] Patient Education 2022 [employer]. 02/05/2023 13:36:26 Colonoscopy, Care After Surgery Salam [...] unsweetened, w/added ascorbic acid 1 cup 0.5 Jennings 1 cup 0.7 Vegetables Cooked Green beans 1 cup 4.0 Carrots 1/2 cup sliced 2.3 Peas 1 cup 8.8 Potato (baked, with skin) 1 medium potato 3.8 Raw Gary (with peel) 1 cucumber 1.5 Lettuce 1 [...] 8.7 Peanuts 1/2 cup 7.9 Chart from [facility] 2013. SEEK IMMEDIATE MEDICAL CARE IF: You [...] Available at http://www.nal.usda.gov/fnic/food comp/search/. Information adapted from: [facility] Patient Information 2009 [employer] 2012 http://www.Orthohub/contents/ cmepkckgebis-anvucim-kggaxn-the-b asics 02/05/2023 13:36:13 Esophageal Dilatation Esophageal Dilatation [...] including vitamins, herbs, eye drops, creams, and cbdj-lzi-qpvztsx medicines. Any problems you or family members [...] provider tells you to take them. ?Taking dhlx-jjj-kgufmlt medicines, vitamins, herbs, and supplements. Follow instructions [...] home. Follow these instructions at home: Take gkol-num-clrzjnw and prescription medicines only as told by [...] provider. Document Revised: 11/08/2020 Document Reviewed: 11/08/2020 [employer] Patient Education 2022 [employer]. Follow Up Care 12/18/2022 09:52:48 With:OMAR CROCKER, LAINEY Parker, [facility] Address: [address] [place] [address]. [address] [place] [address] When: Unknown Comments:Call for any problems. Office will call to schedule follow up appointment [facility] 02-05-2023 Evaluation + Plan note Extrac mariposa from: Title:ANES Post General Author:Frank Adams DO. Date:02/05/23 Plan Transfer/Discharge: Patient exhibiting no signs of N/V. Hydration status is adequate. Extracted from: Title:Bryan Basic PRE Author:Ronny Adams DO. Date:02/05/23 Plan [place] Society of Anesthesiologists (ASA) physical status classification: Class II. Anesthetic Preoperative Plan: Anesthesia General. [facility]06-21-2023 NoteHNO ID: [id number] Author: Marko Cordova PA-C Service: ? Author Type: Physician Mixing Pan Tender Type: Progress Notes Filed: 12/25/2022 12:05 PM [...] knee joint Informed Consent Consent Obtained: Verbal [place] Protocol A moment to CARE was completed. [...] Greater (Aleve) Physical The (more content not included)...[facility]06-21-2023 NoteHNO ID: [id number] Author: RT Lizbeth(R) Service: ? Author Type: Technologist Type: Progress [...] BY: RT Lizbeth(R) December 25, 2022 10:24 [facility]06-21-2023 History of Present illness Narrative* Marko [...] knee joint Informed Consent Consent Obtained: Verbal [place] Protocol A moment to CARE was completed. [...] PAST SURGICAL HISTORY OF umb hernia repair x2 / 06/2004, 01/2011 PAST SURGICAL HISTORY OF [...] 10:36 AM [facility] Note [id number]#1.00CD:127[facility] 09-02-2022 Hospital Discharge instructions Patient Education [...] concerns, call to speak with your doctor. [facility]: [phone]. Follow Up Care 08/13/2022 15:47:23 With:Rita Dover Address: [address] [place], [place] [id number] Business (1) When:09/30/2022 10:30:00 Comments:Keep scheduled appointment [facility]08-19-2022 NoteHNO ID: [id number] Author: Augustus Pereira MD Service: ? Author [...] Recommend conservative treatment with activity modification, ice, nkxg-urz-lzpbzeu NSAID. If this becomes more significant she will return for follow-up Follow-up as symptoms dictate Augustus Pereira [facility]08-19-2022 NoteHNO ID: [id number] Author: RT Brynn(R) Service: ? Author Type: [...] Margi Moore, RT(R) February 22, 2022 2:30 [facility]05-03-2022 Evaluation + Plan note Future Scheduled Tests Laboratory* CBC w/ Indices 11/06/21 [facility] 05-03-2022 Hospital Discharge instructions Follow Up Care 11/06/2021 11:33:21 With:Akbar GARCES, DEJUAN Philip, PED Address: [address] [place] [phone] When:1 month only if needed [facility] 06-17-2021 NoteHNO ID: [id number] Author: Stanley Bunch PA-C Service: Orthopaedic Surgery Author Type: Physician Mixing Pan Tender Type: Progress Notes Filed: 12/21/2020 9:30 AM [...] Failure of total knee replacement, 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[facility]) [T84.018A, Z96.659]. Patient will require an opioid [...] 1707 -- 12/21/20 0000 graduated compression stockings ([place]) 12/20/20 1715 graduated compression stockings ([place]) 12/20/20 1715 activity - mobilize patient ([place] VTE Prophylaxis: VTE prophylaxis appropriate POST OPERATIVE COMPLICATIONS: Complicated by: uneventful/none SIGNATURE: Stanley Bunch PA-C PATIENT NAME: Jessenia Wing DATE: 12/21/2020 TIME: 9:30 AM PAGER/CONTACT #: [phone] NoteHNO ID: [id number] Author: Zeke Prajapati II, DO Service: Anesthesiology [...] Jessenia Wing DATE: December 20, 2020 TIME: 12:30 PM CSN: [id number] NoteHNO ID: [id number] Author: Zeke Prajapati II, DO Service: Anesthesiology [...] Jessenia Wing DATE: December 20, 2020 TIME: 12:02 PM CSN: [id number] Evaluation + Plan note Future Appointments Appointment Date:07/18/2023 08:00:00 AM Scheduled Provider: Location:.[facility] Appointment Type:CV Echo (FT) Appointment Date:08/05/2023 01:00:00 PM Scheduled Provider:Eyad ARORA MD Location:.[facility] Appointment Type:Cardiology New Patient (FT) Future Scheduled Tests Radiology* Echo w/ Saline Bubbles 07/18/23 [facility] 05-15-2017 History of Past illness Narrative* Problem Noted Date Resolved Date S/P left unicompartmental knee replacement 11/1803/18/2017 documented as of this encounter (statuses as of 02/22/2022) [facility] History of Past illness Narrative* Problem Noted Date Resolved Date S/P left unicompartmental knee replacement 11/1803/18/2017 documented as of this encounter (statuses as of 12/25/2022) [facility] Future Appointments Appointment Date:05/29/2022 09:45:00 AM Scheduled Provider:Jerel Banks DPM [facility] Appointment Type:WC Follow Up Visit (FT) Future Scheduled Tests Radiology* US LE Venous Duplex Insufficiency Bilat [facility] App[facility]ments Appointment Date:06/10/2022 03:00:00 PM Scheduled Provider: [facility] App[facility] Type:US Duplex Procedures (FT) Future Scheduled Tests Radiology* US LE Venous Duplex Insufficiency Bilat [facility]10[facility]22 [facility] Future Appointments Appointment Date:09/30/2022 10:30:00 AM Scheduled Provider:Rita Dover MD Location[facility] Appointment Type:Vascular Follow Up (FT) [facility] Future Appointments Appointment Date:10/31/2022 03:30:00 PM Scheduled Provider:Rita Dover MD Location[facility] Appointment Type:Vascular Follow Up (FT) Appointment Date:11/22/2022 04:20:00 PM Scheduled Provider:ANA CHÁVEZ CNP Location:[facility] Appointment Type:[facility] Evaluation + Plan note Future Appointments Appointment Date:02/05/2023 12:50:00 PM Scheduled Provider: Location:[facility] Appointment Type:Surgery FT [facility] Evaluation + Plan note Future Appointments Appointment Date:06/05/2023 03:20:00 PM Scheduled Provider:Morena Rousseau CNP Location:[facility] Appointment Type:BADH Follow Up [facility] Evaluation + Plan note Future Appointments Appointment Date:08/05/2023 01:00:00 PM Scheduled Provider:Eyad ARORA MD [facility] Type:Cardiology New Patient (FT) [facility] Diagnosis S/P revision of total knee, left- Primary documented in this encounter [facility] Diagnosis S/P revision of total knee, left- Primary Primary osteoarthritis of right knee Primary localized osteoarthrosis, lower leg [facility] Narrative No data available for this section [facility] Hospital Discharge instructions No data available for this section [facility] No data available for this section [facility]ative)* Diagnostic Procedure Only (Routine) - Closed Specialty Diagnoses / Procedures Referred By Mandeep sellers Referred To Contact XR IMAGING Diagnoses S/P revision of total knee, left Procedures XR KNEE POST OP 3V AP/LAT/MERCHANT LEFT RADIOLOGIC EXAMINATION KNEE 3 VIEWS Augustus Pereira MD [address] [place] [address] Xr Imaging Referral ID Status Reason Start Date Expiration Date V isits Requested Visits Authorized [id number] Closed Auto-Generate d Referral 02/22/2022 03/24/2023 1 1 [facility] Summary Purpose Family History No Family History [...] Marko Cordova PA-C [address] [place] [address] [facility] [place] [address] [id number] Referral ID Status Reason Start Date Expiration Date Visits Requested Visits Authorized [id number] Pending Review Auto-Generat ed Referral 12/25/2022 12/25/2023 [...] section and content) DATE CREATED AUTHOR 01/05/2021 [facility] DATE CREATED AUTHOR AUTHOR'S ORGANIZ ATION 12/26/2022 [facility] DATE CREATED AUTHOR AUTHOR'S ORGANIZ ATION 06/28/2023 [facility] Source Comments (unrecognize d section and content) In the event this informatio n is protected by the Federal Confidentiality of Alcohol and Drug Abuse Patient Records regulations: The Federal rules restrict any use of the information to criminally investigate or prosecute any alcohol or drug abuse patient.[facility] the event this information is protected by the Federal Confidentiality of Alcohol and Drug Abuse Patient Records regulations: The Federal rules restrict any use of the information to criminally investigate or prosecute any alcohol or drug abuse patient.[facility] Patient Care team informatio n (unrecognized section and content) Personnel Name: Pb BAUMAN DO Address: Address: [address] [place], [place] [id number] Personnel Name: Pb BAUMAN DO Address: Address: [address] [place], [place] [id number] Personnel Name: Pb BAUMAN DO Address: Address: [address] [place] [id number] Personnel Name: Pb BAUMAN DO Address: Address: [address] [place] [id number] Personnel Name: Pb BAUMAN DO Address: Address: [address] [place] [id number] Personnel Name: Pb BAUMAN DO Address: Address: [address] [place] [phone] Personnel Name: Pb BAUMAN DO Address: Address: [address] [place] [id number] Personnel Name: Pb BAUMAN DO Address: Address: [address] [place] [address]- [place] Personnel Name: Pb BAUMAN DO Address: Address: [address] [place] [address]- [place] Personnel Name: Pb BAUMAN DO Address: Address: [address] [place] [address]- [place] Personnel Name: Pb BAUMAN DO Address: Address: [address] [place] [address]- [place] Personnel Name: Pb BAUMAN DO Address: Address: [address] [place] [address]- [place] Personnel Name: DIANA MOYER Address: Address: [address] [place] [address]- Personnel Name: DIANA MOYER Address: Address: [address] [facility] [address] [address] [place] [id number]- Reason for Visit (unrecogniz ed section and [...] BE BASED ON THE PRIMARY CLINICAL RECORDS. [facility] [employer] [facility]. provides no warranty or guarantee of the accuracy or completeness of information in this document.
[2023-08-22] MEDS: LIDOCAINE HCL 1% 100 MG/10 ML MDV 20 ML INJ (07:28)
== END 2023-08-22 07:25 | disposition home or self-care (01) ==
LOC: VC 07:24
PROVIDERS: PCP Radiology Diagnostic Radiology; Visit Provider Radiology Diagnostic Radiology
DX: I83.813 Varicose veins of bilateral lower extremities with pain (principal)
CPT/HCPCS: 36478

== ENCOUNTER 2023-09-08 15:01 | Outpatient (OUT) | payer OTHER, BC, SELFPAY ==
--- NOTE | 2023-09-08 15:02 | VEIN_ITS ---
Patient Name: LOREN WING MR#: [id number] : 1970 Exam Date: 09/08/2023 Ordering Doctor: DR WILVER CANO M.D. RADIOLOGY REPORT PROCEDURE: [facility] - OFFICE VISIT FOLLOW UP [facility] PROGRESS NOTES: The patient reports no significant problems following intravenous laser ablation of right leg incompetent perforating veins. The patient did not require oral analgesics for the patient has worn her compression stocking. The patient has tried exercise Physical exam demonstrates significant interval improvement in active venous stasis ulcerations along the right distal anterior and lateral lower leg. Significant decrease in swelling skin thickening and erythema. No erythema or warmth to suggest cellulitis or thrombophlebitis. Review of the ultrasound performed the same day demonstrates occlusive thrombus extending throughout the treated perforating veins. No deep vein thrombus. Residual varicose veins remain. The patient expressed a desire to proceed with treatment of incompetent right anterior accessory saphenous vein. [facility]: 1. Successful ablation of incompetent treated right leg perforating veins 2. 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 PLAN: Intravenous laser ablation right anterior accessory saphenous vein Nurse notes, history and physical were reviewed and confirmed, see attached forms. The nurse was present throughout the physical exam and consultation Dictated by: Wilver Cano MD on 09/08/2023 at 15:36 Approved by: Wilver Cano MD on 09/08/2023 at 15:38
--- NOTE | 2023-09-08 15:02 | VEIN_ITS ---
Patient Name: LOREN WING MR#: [id number] : 1970 Exam Date: 09/08/2023 Ordering Doctor: DR WILVER CANO M.D. RADIOLOGY REPORT PROCEDURE: VC EXT VENOUS RT LMTD COMPARISON: VC EXT VENOUS RT LMTD, 08/11/2023. INDICATIONS: Phlebitis of superficial veins of right lower extremity I80.01 TECHNIQUE: Lower extremity berry scale and Duplex Doppler evaluation of the deep venous system from the inguinal ligament through the calf veins. FINDINGS: REGION: Right lower extremity. THROMBI: Negative for DVT. Thrombus in two perforators in right lower leg. COMPRESSIBILITY: Non-compressible segments corresponding to thrombus FLOW: Areas of no flow corresponding to thrombus OTHER: Multiple varicose veins remain. CONCLUSION: Post ablation occlusion of the right leg perforating veins. Multiple residual incompetent varicose veins Dictated by: Wilver Cano MD on 09/08/2023 at 15:27 Approved by: Wilver Cano MD on 09/08/2023 at 15:36
== END 2023-09-08 15:02 | disposition home or self-care (01) ==
LOC: VC 15:01
PROVIDERS: PCP Radiology Diagnostic Radiology; Visit Provider Radiology Diagnostic Radiology
DX: I80.01 Phlebitis and thrombophlebitis of superficial vessels of right lower extremity (principal)
CPT/HCPCS: 93971; G0463

== ENCOUNTER 2023-09-18 07:25 | Outpatient (OUT) | payer OTHER, BC, SELFPAY ==
--- OUTSIDE RECORDS SUMMARY | 2023-09-18 07:28 | XMS_ITS | CCD ---
Author Name Unknown Address [address] [place] [address] Organization [facility] Care Team Providers Care Director Of Nursing Name Role Phone Pb BAUMAN Primary Care Physician [phone] Unavailable Primary Care Provider Unavailabl e Unavailable Primary Care Provider Unavailabl e MARKO CORDOVA Attending Unavailable MARKO CORDOVA Referring Unavailable AUGUSTUS PEREIRA Attending Unavailable AUGUSTUS PEREIRA Referring Unavailable Pb BAUMAN Primary Care Physician DIANA CEJA Primary Care Physician [phone] Keith CHUNG Attending Unavailable ANA CHÁVEZ Attending Unavailable ROLANDO CEJA-C DIANA Grady Attending Unav ailable ANA CHÁVEZ Attending Unavailable Rita Dover FJohn Admitting Unavailable Stanislaw, Rita Long Attending [...] Unavailable Sri PUGA Attending Unavailable Kimmy Scott Attending Unavailable Morena Rousseau Attending Unavailable Morena Rousseau Attending Unavailable Allergies Allergy Classification Reported Allergen(s) Allergy Type Date of Onset Reaction(s) Facility (17 sources) seasonal ,dust, mold 1 Allergy to substance hayfever [facility] Comment on above: hayfever (1 source) Seasonal allergy Allergy to substance 3 Itching [facility] (1 source) seasonal ,dust, mold; Translations: [seasonal ,dust, mold] Propensity to adverse reactions (disorder) [facility] (1 source) No Known Medication Allergies; Translations: [No Known Medication Allergies] Propensity to adverse reactions (disorder) [facility] Rep[facility] NEGATED: Highlighted row has been ruled out! (1 source) Drug allergy [facility] NEGATED: Highlighted row has been ruled out! (1 source) Drug allergy [facility] NEGATED: Highlighted row has been ruled out! (1 source) Drug allergy [facility] NEGATED: Highlighted row has been ruled out! (1 source) Drug allergy [facility] NEGATED: Highlighted row has been ruled out! (1 source) Drug allergy [facility] NEGATED: Highlighted row has been ruled out! (1 source) Drug allergy [facility] NEGATED: Highlighted row has been ruled out! (1 source) Drug allergy [facility] NEGATED: Highlighted row has been ruled out! (1 source) Drug allergy [facility] NEGATED: Highlighted row has been ruled out! (1 source) Drug allergy [facility] NEGATED: Highlighted row has been ruled out! (1 source) Drug allergy [facility] NEGATED: Highlighted row has been ruled out! (1 source) Drug allergy [facility] Medications Current Medications Medication Drug Class(es) Dates Sig (Normalized) Sig (Original) albuterol HFA 90 mcg/inh MDI (17 sources) Start: 06-27-2023 take 2 puff(s) by inhalation four times daily albuterol HFA 90 mcg/inh MDI 2 puff(s), Inhalation, QID, 1 EA, Refill(s) 2, [facility] 1985, 167, cm, 06/27/23 10:33:00 EST, Height/Length Dosing, 111, kg, 06/27/23 10:33:00 EST, Weight Dosing Start Date: 06/27/23 Status: Ordered Start: 05-25-2020 take 2 puff(s) by in halation four times daily albuterol HFA 90 mcg/inh MDI 2 puff(s), Inhalation, QID, 1 EA, Refill(s) 2, [facility] 1986, 167, cm, 05/25/20 16:49:00 EST, Height/Length Dosing, 112.5, kg, 05/25/20 16:49:00 EST, Weight Dosing Start Date: 05/25/20 Status: Ordered azithromycin 250 mg oral tablet (1 source) Macrolide Antimicrobial Start: 06-27-2023 End: 07-02-2023 Zithromax Z-Mars 250 mg oral tablet 250 mg = 1 tab(s), Oral, As Directed, as directed on package labeling, X 5 day(s), # 6 tab(s), Refills(s) 0, Pharmacy: [facility], 167, cm, 06/27/23 10:33:00 EST, Height/Length Dosing, 111, kg, 06/27/23 10:33:00 EST, Weight Dosing Start Date: 06/27/23 Stop Date: 07/02/23 Status: Ordered brompheniramine maleate 0.4 mg/ml / dextromethorphan hydrobromide 2 mg/ml / pseudoephedrine hydrochloride 6 mg/ml oral solution (2 sources) alpha-Adrenergic Agonist, Uncompetitive V-xikdan-R-aspart ate Receptor Antagonist, Sigma-1 Agonist Start: 06-27-2023 take 2.5 mL by mouth every six hours Bromfed DM oral syrup 2.5 mL, Oral, q6hr for cold symptoms, 120 mL, Refill(s) 1, [facility] 1985, 167, cm, 06/27/23 10:33:00 EST, Height/Length Dosing, 111, kg, 06/27/23 10:33:00 EST, Weight Dosing Start Date: 06/27/23 Status: Ordered hydrALAZINE hydrochloride 10 mg oral tablet (1 source) Arteriolar Vasodilator Start: 07-04-2023 hydrALAZINE 10 mg Tab See Instructions, 1 tab PO PRN BP >140/90, # 30 tab(s), Refills(s) 2, Pharmacy: [facility] 1985, 167, cm, 06/27/23 10:33:00 EST, Height/Length Dosing, 111, kg, 06/27/23 10:33:00 EST, Weight Dosing Start Date: 07/04/23 Status: Ordered hydroCHLOROthiazide 12.5 mg oral capsule (4 sources) Thiazide Diuretic Start: 06-27-2023 take 1 capsule by mouth once daily hydrochlorothiazide 12.5 mg Cap 12.5 mg = 1 cap(s), Oral, Daily, # 30 cap(s), Refills(s) 6, Pharmacy: [facility] 1985, 167, cm, 06/27/23 10:33:00 EST, [...] day(s), # 21 tab(s), Refills(s) 0, Pharmacy: [facility] 1985, 167, cm, 06/27/23 10:33:00 EST, Height/Length Dosing, 111, kg, 06/27/23 10:33:00 EST, Weight Dosing Start Date: 06/27/23 Stop Date: 07/03/23 Status: Ordered omeprazole 40 mg delayed release oral capsule (12 sources) Proton Pump Inhibitor Start: take 1 capsule by mouth once daily omeprazole 40 mg Cap-DR 40 mg = 1 cap(s), Oral, Daily, # 30 cap(s), Refills(s) 1, Pharmacy: [facility] 1985, 167, cm, 02/05/23 12:12:00 EDT, Height/Length Dosing, 106.5, kg, 02/05/23 12:12:00 EDT, Weight Dosing Start Date: 02/05/23 Status: Ordered Start: 01-20-2023 take 1 capsule by mo uth once daily omeprazole 20 mg Cap-DR 20 mg = 1 cap(s), Oral, Daily, # 90 cap(s), Refills(s) 3, Pharmacy: [facility] 1985, 167, cm, 12/18/22 9:30:00 EDT, Height/Length Dosing, 106.5, kg, 12/18/22 9:30:00 EDT, Weight Dosing Start Date: 01/20/23 Status: Ordered Start: 10-25-2022 take 1 capsule by [facility] once daily omeprazole 20 mg Cap-DR 20 mg = 1 cap(s), Oral, Daily, # 30 cap(s), Refills(s) 0, Pharmacy: [facility] 1985, 167, cm, 10/25/22 14:36:00 EDT, Height/Length Dosing, 110.1, kg, 10/25/22 14:36:00 EDT, Weight Dosing Start Date: 10/25/22 Status: Ordered polyethylene glycol 3350 871390 mg / potassium chloride 1480 mg / sodium bicarbonate 5720 mg / sodium chloride 43555 mg powder for oral solution (1 source) Osmotic Laxative Start: 12-18-2022 NuLYTELY Ford oral powder for reconstitution See Instructions, 1 EA, Refill(s) 0, See physician instructions prior to procedure., [facility], 167, cm, 12/18/22 9:30:00 EDT, Height/Length Dosing, 106.5, kg, 12/18/22 9:30:00 EDT, Weight Dosing Start Date: 12/18/22 Status: Ordered pseudoephedrine hydrochloride 30 mg oral tablet (1 source) alpha-Adrenerg ic Agonist Start: 11-07-2021 End: 12-05-2021 take 1 tablet by mouth twice daily pseudoephedrine 30 mg Tab 30 mg = 1 tab(s), Oral, BID, X 14 day(s), # 28 tab(s), Refills(s) 1, Pharmacy: [facility] 1985, 167, cm, 11/06/21 13:58:00 EDT, [...] use, # 1 EA, Refills(s) 5, Pharmacy: [facility] 1985, 167, cm, 06/27/23 10:33:00 EST, Height/Length Dosing, 111, kg, 06/27/23 10:33:00 EST, Weight Dosing Start Date: 06/27/23 Status: Ordered Start: 10-25-2022 take 232 ug by mouth every twelve hours fluticasone propionate 232 mcg/inh inhalation powder 232 mcg, Inhalation, q12hr, Swallowed rather than inhaled rinse mouth and throat after use, # 1 EA, Refills(s) 5, Pharmacy: [facility] 1985, 167, cm, 10/25/22 14:36:00 EDT, Height/Length Dosing, 110.1, kg, 10/25/22 14:36:00 EDT, Weight Dosing Start Date: 10/25/22 Status: Ordered sertraline 50 mg oral tablet (19 sources) Serotonin Reuptake Inhibitor Start: 01-20-2023 Zoloft 50 mg Tab 75 mg = 1.5 tab(s), Oral, Daily, # 135 tab(s), Refills(s) 3, Pharmacy: [facility] 1985, 167, cm, 06/27/23 10:33:00 EST, Height/Length Dosing, 111, kg, 06/27/23 10:33:00 EST, Weight Dosing Start Date: 06/27/23 Status: Ordered Start: 01-09-2022 Zoloft 50 mg T ab 75 mg = 1.5 tab(s), Oral, Daily, # 135 tab(s), Refills(s) 2, Pharmacy: [facility] 1985, 167, cm, 11/06/21 13:58:00 EDT, Height/Length Dosing, 91.5, kg, 11/06/21 13:58:00 EDT, Weight Dosing Start Date: 01/09/22 Status: Ordered Start: 12-28-2020 Zoloft 50 mg T ab 75 mg = 1.5 tab(s), Oral, Daily, # 135 tab(s), Refills(s) 2, Pharmacy: [facility] 1986, 167.6, cm, 12/22/20 12:51:00 EDT, [...] and Complexity of Problems Differential Diagnosis: [] [facility] Data External documents reviewed: [] My EKG [...] MERNA In 3 days 06/29/[address] [facility] (more content not included)... Normal [facility] Comment on above: Result Comment: [...] seem to help much ER followup: Hospital: [facility] Visit date: 06/27/23 Symptoms the patient presented [...] day(s), # 6 tab(s), Refills(s) 0, Pharmacy: [facility], 167, cm, 06/27/23 10:33:00 EST, Height/Length Dosing, 111, kg, 06/27/23 10:33:00 EST, Weight Dosing brompheniramine/dext romethorphan/PSE, 2.5 mL, Oral, q6hr for cold symptoms, 120 mL, Refill(s) 1, [facility], 167, cm, 06/27/23 10:33:00 EST, Height/Length Dosing, 111, kg, 06/27/23 10:33:00 EST, Weight Dosing hydrochlorothiazide, 12.5 mg = 1 cap(s), Oral, Daily, # 30 cap(s), Refills(s) 6, Pharmacy: [facility] 1985, 167, cm, 06/27/23 10:33:00 EST, Height/Length Dosing, 111, kg, 06/27/23 10:33:00 EST, Weight Dosing methylPREDNISolone, = 1 packet(s), Oral, As Directed, as directed on package labeling, X 6 day(s), # 21 tab(s), Refills(s) 0, Pharmacy: [facility] 1985, 167, cm, 06/27/23 10:33:00 EST, (more content not included)... [facility] Comment on above: Result Comment: Elec tronically Signed By: DIANA MOYER.br\Date and Time Signed: 06/27/23 12:02 EST Insurance Correspondenceon 1 08-28-2022 Insurance Correspondence [id number] 0#1.00TIFF [facility] Nursing Note - Woundon 06-27 Nursing Note - Wound [id number] 9#2.00TIFF [facility] Patient Educationon 06-27-20 23 Patient [...] safe for you. General instructions ? Take zskl-gii-lpqeoky and prescription medicines only as told by [...] provider. Document Revised: 10/11/2020 Document Reviewed: 12/21/2019 [employer] Patient Education ? 2022 [employer] ENT Cough, Adult Coughing is a [...] ? Allergies. (more content not included)... Normal [facility] Physician Orderon 06-27-2023 Physician Order [id number] 4#1.00TIFF Normal [facility] Physician Referralon 023 Physician Referral [id number] #1.00TIFF Normal [facility] Progress Note - Woundon 06-07 Progress Note - Wound [id number] 2#1.00TIFF Normal [facility] Auto DiffOrdered By: SYSTEM SYSTEM on 06-26-2023 Basophils/100 WBC (Bld) 0.9 % Normal 0.0-2.0 [facility] Comment on above: Order Comment: Order Added by Discern Expert. Performed By: #### 1 [id number], 2763134, 6593107, 0811518, 19313305, 56193243 ####[facility] [address] [place] [address] Basophils/Leukocytes Auto (Bld) [Pure # fraction] 0.0 E9/L Normal 0.0-0.2 [facility] Comment on above: Order Comment: Order Added by Discern Expert. Performed By: #### 1 [id number], 7790820, 9190544, 5261106, 46189040, 36078463 ####[facility] [address] [place] [address] Eosinophils/100 WBC (Bld) 2.7 % Normal 0.0-8.0 [facility] Comment on above: Order Comment: Order Added by Discern Expert. Performed By: #### 1 9968689, 0305276, 5553112, 2077914, 53987475, 03842851 ####[facility] [address] [address] Eosinophils/Leukocyt es Auto (Bld) [Pure # fraction] 0.1 E9/L Normal 0.0-0.5 [facility] Comment on above: Order Comment: Order Added by Discern Expert. Performed By: #### 1 4161777, 6197933, 8318590, 4626554, 07420184, 29957299 ####[place] [address] [address] Lymphocytes/100 WBC (Bld) 20.0 % Normal 14.0-50.0 [facility] Comment on above: Order Comment: Order Added by Discern Expert. Performed By: #### 1 4487540, 9439133, 1613387, 9525515, 94071776, 52211420 ####[address] [address] Lymphocytes/Leukocyt es Auto (Bld) [Pure # fraction] 0.9 E9/L Low 1.0-4.0 [facility] Comment on above: Order Comment: Order Added by Amanda Expert. Performed By: #### 1 3451747, 0737568, 1179367, 3570797, 79953137, 69605779 ####[address] [address] Monocytes/100 WBC (Bld) 7.4 % Normal 4.0-14.0 [facility] Comment on above: Order Comment: Order Added by Discern Expert. Performed By: #### 1 8816939, 8832037, 8060569, 8919024, 31952796, 63462998 ####[address] [address] Monocytes/Leukocytes Auto (Bld) [Pure # fraction] 0.3 E9/L Normal 0.2-1.0 [facility] Comment on above: Order Comment: Order Added by Discern Expert. Performed By: #### 1 2217821, 0959391, 2342094, 9115008, 17072895, 15536342 ####[place] [address] [address] Neutrophils/100 WBC (Bld) 69.0 % Normal 36.0-75.0 [facility] Comment on above: Order Comment: Order Added by Discern Expert. Performed By: #### 1 5313719, 5958102, 7636573, 8908000, 72678471, 37034982 ####[place] [address] [place] [address] Neutrophils/Leukocyt es Auto (Bld) [Pure # fraction] 3.2 E9/L Normal 2.0-7.5 [facility] Comment on above: Order Comment: Order Added by Discern Expert. Performed By: #### 1 0722722, 3792623, 8283125, 7362773, 69659173, 53000755 ####[place] [address] [address] BMPOrdered By: SYSTEM SYSTEM on 06-26-2023 Anion gap [Moles/Vol] 11 mmol/L Normal 6-16 [facility] Comment on above: Performed By: #### 1 3636925, 4953118, 2393501, 5266776, 61766776, 47570529 ####[place] [address] [address] Calcium [Mass/Vol] 8.6 mg/dL Low 8.9-11.1 Remiso l Chem Comment on above: Performed By: #### 1 2011342, 9471625, 8279994, 7565574, 01680242, 15403135 ####[place] [address] [place] [address] Chloride [Moles/Vol] 109 mmol/L Normal 101-111 Amado daniela Chem Comment on above: Performed By: #### 1 9976173, 6413560, 2323927, 5556922, 80046435, 24903837 ####[place] [address] [place] [address] CO2 [Moles/Vol] 26 mmol/L Normal 21-31 [facility] Chem Comment on above: Performed By: #### 1 4439468, 3967451, 0649676, 4475086, 63705694, 63605137 ####[facility] [address] [place] [address] Creatinine [Mass/Vol] 0.9 mg/dL Normal 0.5-1.3 [facility] Comment on above: Performed By: #### 1 3691360, 9285329, 5693406, 3041360, 93131638, 68774765 ####[facility] [address] [place] [address] Glucose [Mass/Vol] 104 mg/dL Normal 55-199 Remiso l Chem Comment on above: Performed By: #### 1 3821445, 1516587, 3076034, 6964031, 59457054, 10344605 ####[address] [address] Potassium [Moles/Vol] 3.9 mmol/L Normal 3.5-5.3 [facility] Comment on above: Performed By: #### 1 8719993, 6584832, 8129967, 8322964, 40642856, 88306757 ####[address] [place] [address] Sodium [Moles/Vol] 142 mmol/L Normal 135-145 Remiso l Chem Comment on above: Performed By: #### 1 4704502, 6324886, 5224489, 9026280, 59150254, 22583884 ####[facility] [address] [place] [address] Urea nitrogen [Mass/Vol] 12 mg/dL Normal 5-21 [facility] Chem Comment on above: Performed By: #### 1 8678728, 9698212, 7731398, 2429193, 19555485, 44488609 ####[facility] [address] [place] [address] BMPon 06-26-2023 BUN/Creat Ratio 13 No Units Normal 10-20 [facility] Comment on above: Performed By: #### 1 9766800, 0779168, 5816764, 8642952, 43123950, 22011170 ####[place] [facility] [address] [place] [address] CBC w/ Auto DiffOrdered By: Rossy Summers on 06-26-2023 Erythrocyte distribution width (RBC) [Ratio] 16.1 % High 10.9-14.2 [facility] Comment on above: Performed By: #### 1 6982281, 2165849, 8838671, 3859240, 91147091, 79698089 ####[address] [address] Hematocrit (Bld) [Volume fraction] 35.9 % Normal 34.0-46.0 [facility] Comment on above: Performed By: #### 1 8674052, 4324285, 7097249, 8751503, 05185363, 06155050 ####[place] [address] [address] Hemoglobin (Bld) [Mass/Vol] 12.0 g/dL Normal 12.0-16.0 [facility] Comment on above: Performed By: #### 1 6673952, 6748390, 8825670, 2403990, 98564502, 96533697 ####[place] [address] [address] MCH (RBC) [Entitic mass] 27.2 pg Normal 27.0-34.0 [facility] Comment on above: Performed By: #### 1 2163326, 2925504, 1174100, 7990720, 52744133, 71278888 ####[place] [address] [address] MCHC (RBC) [Mass/Vol] 33.6 g/dL Normal 31.4-36.0 [facility] Comment on above: Performed By: #### 1 7796887, 2866704, 5286318, 4994508, 05798913, 62907012 ####[place] [address] [address] MCV (RBC) [Entitic vol] 81.0 fL Normal 80.0-100.0 FT [facility] Comment on above: Performed By: #### 1 9569444, 4677308, 9202672, 2019450, 68087280, 13096850 ####[place] [address] [place] [address] Platelet mean volume (Bld) [Entitic vol] 7.9 fL Normal 6.4-10.8 [facility] Comment on above: Performed By: #### 1 5663293, 1051732, 8197053, 6472635, 28908166, 33287805 ####[address] [address] Platelets (Bld) [#/Vol] 138.0 E9/L Low 150.0-500.0 FT [facility] Comment on above: Performed By: #### 1 2761815, 0562326, 6820053, 2485300, 00019058, 25926788 ####[place] [address] RBC (Bld) [#/Vol] 4.4 E12/L Normal 4.3-5.9 FT [facility] Comment on above: Performed By: #### 1 0382514, 8757599, 8998229, 5219798, 75550332, 26528092 ####[address] [address] WBC corrected for nucl RBC Auto (Bld) [#/Vol] 4.6 E9/L Normal 4.0-11.0 FT [facility] Comment on above: Performed By: #### 1 2620638, 0277017, 3114138, 9844391, 05426929, 10740059 ####[place] [address] [address] CHEMISTRYOrdered By: SYSTEM SYSTEM on 06-26-2023 eGFR mL/min/1.73 m2 Normal >=59mL/min/1.73 m2 Re misol Chem Urea nitrogen/Creatinine [Mass ratio] 13 mg/mg Normal 10 - 20 Remisol Chem COAGULATIONOrdered By: Franko Saldana on 06-26-2023 aPTT Coag (PPP) [Time] 31.8 s Normal 25.1 - 36.5 second(s) [facility] Auto Coag Comment on above: Interpretive Data: [...] the same coagulation reagent and instrumentation as [facility]. Currently there are no coagulation studies available worldwide for children to 14 days, and no normal ranges. Heparin therapeutic range (represented by Anti-Factor Xa activity of 0.2 - 0.4 U/mL) corresponds to PTT of 56.6 - 109.0 sec. PT Coag (PPP) [Time] 10.7 s Normal 9.4 - 1 2.5 second(s) [facility] Auto Coag Comment on above: Interpretive Data: [...] the same coagulation reagent and instrumentation as [facility]. Currently there are no coagulation studies available [...] MD, V. Transcribed by: ANDRAE Technologist: ROSALINA [facility] Consent for Procedure/Surger yon 06-26-2023 Consent for Procedure/Surgery [id number] 1#1.00TIFF [facility] Consent for Treatmenton 06-07 Consent for Treatment [id number] #1.00TIFF [facility] Consent for Treatment [id number] #1.00TIFF [facility] Consent to Photographon 06-07 Consent to Photograph [id number] 6#1.00TIFF [facility] Correspondence - [place] Correspondence - Wound [id number] 3#1.00TIFF Normal [facility] Correspondence - Wound [id number] 1#1.00TIFF Normal [facility] Discharge Instructionson Discharge Instructions [id number] 9#1.00TIFF Normal [facility] ED Clinical Summaryon 2022 ED Clinical Summary [place] [id number] ED Clinical Summary Person Information Name: MECCAJESSENIA/[place] Age: 52 Years : 1970 Sex: Female Language: Swazi PCP: Pb BAUMAN DO Marital Status: Visit Id: Visit Reason: Hypertension; Headache; HIGH BLOOD PRESSURE - SENT BY [facility] Speciality: Acuity: 3 Enc Type: Emergency [...] 06/26/2023 20:53:28 06/26/2023 20:53:28 06/26/2023 20:53:28 ADDRESS: [id number] [facility] [id number] PHYS DOC NOTES: MEDICAL INFORMATION: Prescriptions Given: [...] Follow up: With: Address: When: Pb BAUMAN [address] [facility] [place] [address] [phone] Business (1) In 3 days 06/29/2023 Comments: Follow-up with your primary care provider in 3 to 5 days. If symptoms worsen, do not improve, or new symptoms arise please report back to emergency department for further evaluation. Continue to monitor your blood pressure, and you may start 20 mg of lisinopril daily. DIAGNOSIS: Head ache; Hypertension Normal [facility] ED Patient Education Noteon 06-26-2023 ED Patient [...] blood pr (more content not included)... Normal [facility] ED Patient Summaryon 023 ED Patient Summary [place] [id number] Patient Discharge Instructions Person Information Name: JESSENIA WING Age: 52 Years Arrival Date: 06/26/2023 18:31:10 Discharge Diagnosis: Head ache; Hypertension Primary Care Physician: Pb BAUMAN DO Provider Information Primary Provider: Everardo Perera DO Advanced Domestic Laundry Worker:None The exam and treatment you received in the Emergency Department were for an urgent problem and are not intended as complete care. It is important that you follow up with a doctor, nurse practitioner, or physician?s assistant education director for ongoing care. If your symptoms become [...] Instructions: With: Address: When: Pb BAUMAN [address] [facility] [place] [address] [phone] Business (1) In 3 days 06/29/2023 Comments: [...] opioids can be used to help relieve mznuuysr-qi-bwuhky pain and are often prescribed following a [...] Drug Administration (more content not included)... Normal [facility] Multi-Wound Charton 06-26-20 Multi-Wound Chart [id number] 4#1.00TIFF Normal [facility] Nursing Assessment - Woundon 06-26-2023 Nursing Assessment - Wound [id number] 9#2.00TIFF Normal [facility] Nursing Assessment - Wound [id number] 8#1.00TIFF Normal [facility] PT & PTTon 06-26-2023 aPTT Coag (PPP) [Time] 31.8 second(s) Normal 25.1-36.5 [facility] Comment on above: Result Comment: Para meter [...] the same coagulation reagent and instrumentation as [facility]. Currently there are no coagulation studies available worldwide for children to 14 days, and no normal ranges. Heparin therapeutic range (represented by Anti-Factor Xa activity of 0.2 - 0.4 U/mL) corresponds to PTT of 56.6 - 109.0 sec. Performed By: #### 1 [id number], 3207056, 5553885, 4987033, 75488289, [id number] ####[facility] [address] [place] [address] PT Coag (PPP) [Time] 10.7 second(s) Normal 9.4-12.5 [facility] Comment on above: Result Comment: 15 d [...] the same coagulation reagent and instrumentation as [facility]. Currently there are no coagulation studies available worldwide for children to 14 days, and no normal ranges. Performed By: #### 1 [id number], [id number], [id number], [id number], [id number] ####[facility] [address] [place] [address] PT & PTTOrdered By: Franko jenkins on 06-26-2023 INR Coag (PPP) [Relative time] 1.0 {INR} Invalid Interpretation Code [facility] Auto Coag Comment on above: Interpretive Data: [...] 3.0 ? 4.5 Performed By: #### 1 [id number], [id number], [id number], [id number], [id number], [id number] ####[facility] [address] [place] [address] Troponin 0 Hr.Ordered By: [employer] on 06-26-2023 Troponin 2.50 pg/mL Low 10.10-27.10 Remisol Chem Comment on above: Interpretive Data: T he 95% CI (Confidence Interval) PPV (Positive Predictive Value) for myocardial infarction in females is 38 pg/mL, in males 51 pg/mL. The results should be used in conjunction with clinical conditions of myocardial infarction. (Access High Sensitivity Troponin I Instructions For Use, [employer], February 2018) Result Comment: The 95% CI (Confidence Interval) PPV (Positive Predictive Value) for myocardial infarction in females is 38 pg/mL, in males 51 pg/mL. The results should be used in conjunction with clinical conditions of myocardial infarction. (Access High Sensitivity Troponin I Instructions For Use, [employer] [place], February 2018) Performed By: #### 1 [id number], [id number], [id number], [id number], [id number], [id number] ####[facility] [address] [place] [address] XR Chest Single Viewon 06-26 XR Chest [...] mGy = na DAP = na Normal [facility] eGFRon 06-26-2023 GFR/1.73 sq M.predicted among non-blacks MDRD (S/P/Bld) [Vol rate/Area] mL/min/{1.73_m2} Normal >=59 [facility] Comment on above: Order Comment: Order added by Discern Expert. Performed By: #### 1 [id number], [id number], [id number], [id number], [id number], [id number] ####[facility] [address] [place] [address] Reminderson 03-12-2023 Reminders - From: Morena Rousseau CNP To: Miya Tenorio; Sent: 03/05/2023 15:23:19 EDT Show up: 03/05/2023 15:24:00 EDT Subject: Ambulatory Reminder Reminder/Recall Colonoscopy in 2032. 02/05/2033 10 year colon recall Normal [facility] Gastroenterology Office/Clin ic Noteon 03-05-2023 Gastroenterology [...] fluticasone propionate (more content not included)... Normal [facility] Comment on above: Result Comment: [...] getting enough exercise. ? Smoking. ? Taking nmpb-kyg-jywluir pain medicines, like aspirin and ibuprofen. ? [...] these instructions at home: Medicines ? Take qlno-jjm-tlljfwh and prescription medicines only as told by your health care provider. ? If told by your health care provider, take a fiber supplement or probiotic. Constipation prevention Your condition may cause constipation. To prevent or treat constipation, you may need to: ? Drink enough fluid to keep your urine pale yellow. ? Take hhfe-saz-wczdznf or prescription medicines. ? Eat foods that [...] provider. Document Revised: 01/20/2020 Document Reviewed: 01/20/2020 [employer] Patient Education ? 2022 [employer]. Peptic Ulcer A peptic ulcer is a [...] hospitalized in a (more content not included)... [facility] Reminderson 02-18-2023 Reminders - From: Harvey Charles To: ZARI - Reminders/Recalls; Sent: 02/18/2023 15:57:52 EDT Show up: 01/04/2033 15:57:00 EDT Subject: Ambulatory Reminder Due Date/Time: 02/05/2033 15:57:00 EDT Reminder/Recall Repeat colonoscopy in 10 years(2032) Normal [facility] Postoperative Documentson Postoperative Documents [id number] 1#1.00CD:127 [facility] IntraOperative Documentson 0 02-10-2023 IntraOperative Documents [id number] 3#1.00CD:127 [facility] Consenton 02-06-2023 Consent [id number] 9#1.00CD:127 Normal [facility] Discharge Instructionson Discharge Instructions [id number] 9#1.00CD:127 Normal [facility] Main OR Intraoperative Recor don 02-06-2023 Main OR Intraoperative Record IntraOp Document Type FT Summary Primary Physician: Keith CHUNG MD Finalized Date/Time: 02/06/23 09:01:34 Pt. Name: MECCA, JESSENIA /Sex: 1970 Female Med Rec #: [id number] Physician: Keith CHUNG MD Financial #: [id number] Pt. Type: O Room/Bed: Endo OP 02/04 [...] Entry 2 Entry 3 Case Attendee Costa RYDRE, Zeke Acuna, Romana Mello ELECTRICAL POWER ENGINEER, Monica Tovar Role Performed MILITARY TECHNICIAN Staff - Other Scrub - Primary Time [...] Kaleigh Cuellar Role Performed Surgeon - Primary Traffic Attendant - Primary Time In 02/05/23 13:06:00 02/05/23 [...] and tissue Entry 1 Skin Integrity Intact, [place], Warm, and Skin Abnormality No Dry Outcomes Met? Yes Last Modified By: Kaleigh Menendez RN 02/05/23 13:10:51 Post-Care Text: The patient is free from signs and symptoms of injury caused by extraneous objects Patient Positioning FT Pre-Care Text: Identifies physical alterations that require additional precautions for procedure-specific positioning, verifies (more content not included)... Normal [facility] Consent for Treatmenton Consent for Treatment [id number] #1.00CD:127 Normal [facility] Discharge Instructionson Discharge Instructions JESSENIA WING :1970 [...] 24 hours Discharge Diet(s) Regular Pharmacy Information [facility] Discharge Instructions Discharge Instructions New Follow Up Appointments after Discharge Follow Up with OMAR CROCKER, LAINEY Parker, [facility] When: Comments: Call for any problems. Office will call to schedule follow up appointment Where: [address] [place] [address] Medications What How Much When Instructions Next Dose Changed omeprazole (omeprazole 20 mg Cap-DR) 1 Capsules By Mouth Every day Changed omeprazole (omeprazole 40 mg Cap-DR) 1 Capsules By Mouth Every day Pickup at [facility] 1985 Unchanged albuterol (albuterol HFA 90 [...] Tablets By Mouth Every day Pharmacy Information [facility] 1986: [address] [place], [place] [id number] [phone] Test Results No qualifying data available. Allergies [...] activities are safe for you. ? Take codm-evn-zsxymbm and prescription medicines only as told by [...] you f (more content not included)... Normal [facility] Comment on above: Result Comment: [...] Return to activities:: After 24 hours. Normal [facility] Comment on above: Result Comment: Elec tronically Signed By: Keith CHUNG MD\.br\Date and Time Signed: 02/05/23 13:31 EDT Other Comment: Analia monique Attachment - attachment storage system not supported [id number] Can be viewed in source systemMissing Attachment - attachment storage system not supported [id number] Can be viewed in source systemMissing Attachment - attachment storage system not supported [id number] Can be viewed in source system Endoscopic [...] Distal esophageal Schatzki ring, dilated using 60 [place] Mckoy dilator 2. Mild gastric erosions, biopsied to rule out H. pylori 3. Normal duodenal mucosa Images Procedure images: [id number]_hd_video_2022_0 ___[id number] g Rec1_hd_video_2022_0 8_T1__[id number].ewa g Rec1_hd_video_ 8__[id number]_722.ewa g . Post-Procedure Complications: none. Estimated blood loss: none. Specimens: sent to pathology. Devices/ implants: none left in place. Impression and Plan 1. Distal esophageal Schatzki ring, dilated using 60 [place] Mckoy dilator 2. Mild gastric erosions, biopsied to rule out H. pylori Recommendations: Follow-up in GI clinic in 2 weeks Omeprazole 40 mg p.o. daily Normal [facility] Comment on above: Result Comment: Elec tronically Signed By: Keith CHUNG MD\.br\Date and Time Signed: 02/05/23 13:30 EDT Other Comment: Analia monique Attachment - attachment storage system not supported [id number] Can be viewed in source systemMissing Attachment - attachment storage system not supported [id number] Can be viewed in source systemMissing Attachment - attachment storage system not supported [id number] Can be viewed in source system Main OR PACU I Recordon Main OR PACU I Record PACU Phase I Document Type FT Summary Primary Physician: Keith CHUNG MD Finalized Date/Time: 02/05/23 14:25:47 Pt. Name: JESSENIA WING/Sex: 1970 Female Med Rec #: [id number] Physician: Keith CHUNG MD Financial #: [id number] Pt. Type: O Room/Bed: Endo OP 02/04 [...] By: Marcie Ramos RN 02/05/23 14:25 Normal [facility] Main OR Preoperative Recordo n 02-05-2023 Main OR Preoperative Record Holding Area Document Type FT Summary Primary Physician: Keith CHUNG MD Finalized Date/Time: 02/05/23 12:11:06 Pt. Name: JESSENIA WING/Sex: 1970 Female Med Rec #: [id number] Physician: Keith CHUNG MD Financial #: [id number] Pt. Type: O Room/Bed: Endo OP 02/04 [...] By: Cristiane Corey RN 02/05/23 12:11 Normal [facility] Monitor Recordon 02-05-2023 Monitor Record [id number] 4#1.00CD:127 Normal [facility] Patient Education - Texton 0 02-05-2023 Patient [...] unsweetened, w/added ascorbic acid 1 cup 0.5 Bradford 1 cup 0.7 Vegetables Cooked Green beans 1 cup 4.0 Carrots 1/2 cup sliced 2.3 Peas 1 cup 8.8 Potato (baked, with skin) 1 medium potato 3.8 Raw [place] (with peel) 1 cucumber 1.5 Lettuce 1 [...] IMMEDIATE MEDIC (more content not included)... Normal [facility] Progress Note-Physicianon Progress Note-Physician Patient: JESSENIA WING [...] Daily, # 135 tab(s), Refills(s) 3, Pharmacy: [facility] 1986, 167, cm, 12/18/22 9:30:00 EDT, Height/Length Dosing, 106.5, kg, 12/18/22 9:30:00 EDT, Weight Dosing albuterol HFA 90 mcg/inh MDI: 2 puff(s), Inhalation, QID, 1 EA, Refill(s) 2, [facility], 167, cm, 05/25/20 16:49:00 EST, Height/Length Dosing, 112.5, kg, 05/25/20 16:49:00 EST, Weight Dosing fluticasone propionate 232 mcg/inh inhalation powder: 232 mcg, Inhalation, q12hr, Swallowed rather than inhaled rinse mouth and throat after use, # 1 EA, Refills(s) 5, Pharmacy: [place] [address], 167, cm, 10/25/22 14:36:00 EDT, Height/Length Dosing, 110.1, kg, 10/25/22 14:36:00 EDT, Weight Dosing... lisinopril 10 mg Tab: 10 mg = 1 tab(s), Oral, Daily, # 90 tab(s), Refills(s) 1, Pharmacy: [place] [address], 167, cm, 05/16/22 14:29:00 EST, Height/Length Dosing, 100.9, kg, 05/16/22 14:29:00 EST, Weight Dosing omeprazole 20 mg Cap-DR: 20 mg = 1 cap(s), Oral, Daily, # 90 cap(s), Refills(s) 3, Pharmacy: [facility] 1985, 167, cm, 12/18/22 9:30:00 EDT, Height/Length Dosing, 106.5, kg, 12/18/22 9:30:00 EDT, Weight Dosing omeprazole 40 mg Cap-DR: 40 mg = 1 cap(s), Oral, Daily, # 30 cap(s), Refills(s) 1, Pharmacy: [facility], 167, cm, 02/05/23 12:12:00 EDT, Height/Length [...] All Problems Allergic rhinitis / SNOMED CT 667168268 / Confirmed Anemia / SNOMED CT 045157362 / Confirmed Anxiety / SNOMED CT 42198116 / Confirmed Breast cancer screening / SNOMED CT 814859111 / Confirmed Colon cancer screening / SNOMED CT 794871026 / Confirmed Dysphagia / SNOMED CT 74829694 / Confirmed Heartburn / SNOMED CT 13470670 / Confirmed History of left knee replacement / SNOMED CT 9059423178 / Confirmed HTN (hypertension) / SNOMED CT 4628303536 / Confirmed Medial meniscus tear / SNOMED CT 419424630 / Confirmed left Non-smoker / SNOMED CT 04202255 / Confirmed Normocytic anemia / SNOMED CT 187720087 / Confirmed Osteoarthritis / SNOMED CT 0055740787 / Confirmed left knee Tenderness of lymph node / SNOMED CT 257657576 / Confirmed Venous insufficiency / SNOMED CT 838022588 / Confirmed Resolved: BACTERIAL PNEUMONIA, UNSPECIFIED / ICD-9-CM 482.9 Resolved: Hypertension / SNOMED CT 4214838174 Resolved: Microcytosis / SNOMED CT 825770230 Resolved: None / SNOMED CT 286811881 Resolved: Screening for cardiovascular condition / SNOMED CT 504521302 Resolved: Ventral hernia / SNOMED CT 2642270426 Canceled: Blood pressure elevated without history of HTN / SNOMED CT 4549156718 Canceled: Bronchitis with wheezing / SNOMED CT 0149928716 Canceled: Obesity (BMI 30-39.9) / SNOMED CT 557851222 Physical Examination Vital Signs 02/05/2023 13:25 EDT [...] 118 mmH (more content not included)... Normal [facility] Comment on above: Result Comment: [...] Daily, # 135 tab(s), Refills(s) 3, Pharmacy: [facility], 167, cm, 12/18/22 9:30:00 EDT, Height/Length Dosing, 106.5, kg, 12/18/22 9:30:00 EDT, Weight Dosing albuterol HFA 90 mcg/inh MDI: 2 puff(s), Inhalation, QID, 1 EA, Refill(s) 2, [facility] 1985, 167, cm, 05/25/20 16:49:00 EST, Height/Length Dosing, 112.5, kg, 05/25/20 16:49:00 EST, Weight Dosing fluticasone propionate 232 mcg/inh inhalation powder: 232 mcg, Inhalation, q12hr, Swallowed rather than inhaled rinse mouth and throat after use, # 1 EA, Refills(s) 5, Pharmacy: [facility], 167, cm, 10/25/22 14:36:00 EDT, Height/Length Dosing, 110.1, kg, 10/25/22 14:36:00 EDT, Weight Dosing... lisinopril 10 mg Tab: 10 mg = 1 tab(s), Oral, Daily, # 90 tab(s), Refills(s) 1, Pharmacy: [facility] 1985, 167, cm, 05/16/22 14:29:00 EST, Height/Length Dosing, 100.9, kg, 05/16/22 14:29:00 EST, Weight Dosing omeprazole 20 mg Cap-DR: 20 mg = 1 cap(s), Oral, Daily, # 90 cap(s), Refills(s) 3, Pharmacy: [facility], 167, cm, 12/18/22 9:30:00 EDT, Height/Length Dosing, [...] All Problems Allergic rhinitis / SNOMED CT 810946599 / Confirmed Anemia / SNOMED CT 913443326 / Confirmed Anxiety / SNOMED CT 79502287 / Confirmed Breast cancer screening / SNOMED CT 613358383 / Confirmed Colon cancer screening / SNOMED CT 018140225 / Confirmed Dysphagia / SNOMED CT 82365183 / Confirmed Heartburn / SNOMED CT 34404375 / Confirmed History of left knee replacement / SNOMED CT 8903970889 / Confirmed HTN (hypertension) / SNOMED CT 7955860170 / Confirmed Medial meniscus tear / SNOMED CT 337252347 / Confirmed left Non-smoker / SNOMED CT 63443894 / Confirmed Normocytic anemia / SNOMED CT 491573303 / Confirmed Osteoarthritis / SNOMED CT 5607705094 / Confirmed left knee Tenderness of lymph node / SNOMED CT 086975311 / Confirmed Venous insufficiency / SNOMED CT 453263174 / Confirmed Resolved: BACTERIAL PNEUMONIA, UNSPECIFIED / ICD-9-CM 482.9 Resolved: Hypertension / SNOMED CT 0807187213 Resolved: Microcytosis / SNOMED CT 983356021 Resolved: None / SNOMED CT 162792383 Resolved: Screening for cardiovascular condition / SNOMED CT 334051695 Resolved: Ventral hernia / SNOMED CT 6712965108 Canceled: Blood pressure elevated without history of HTN / SNOMED CT 8379450413 Canceled: Bronchitis with wheezing / SNOMED CT 9342337387 Canceled: Obesity (BMI 30-39.9) / SNOMED CT 583889458, Active Problems (15) Allergic rhinitis Anemia Anxiety Breast cancer screening Colon cancer screening Dysphagia Heartburn History of left knee replacement HTN (hypertension) Medial meniscus tear Non-smoker Normocytic anemia Osteoarthritis Tenderness of lymph node Venous insufficiency Histories Past Medical History: Resolved None (006759448): Resolved. Ventral hernia (4738851075): Resolved. BACTERIAL PNEUMONIA, UNSPECIFIED (482.9): Resolved. Screening for cardiovascular condition (344204430): Resolved. Hypertension (1614799273): Resolved. Microcytosis (323640683): Resolved. Family History: Depression Child Depression Mother () Bipolar Sister Schizophrenia Brother Procedure history: Sclerotherapy ([id number]) on 09/02/2022 at 51 Years. Revision (342688404) on 12/20/2020 at 50 Years. Comments: 12/22/2020 13:37 CATT - Marcelina Powell left knee arthroplasty Sclerotherapy ([id number]) on 10/05/2020 at 49 Years. left TKR on 11/18/2016 at 45 Years. knee arthr (more content not included)... Normal [facility] Comment on above: Result Comment: Elec tronically Signed By: Munir Adams DO.br\Date and Time Signed: 02/05/23 12:26 EDT CNOVon 12-25-2022 CNOV Office Visit (ORTHCO) JESSENIA WING ([id number]) 1970 F Date Time Provider Department 12/25/22 [...] knee joint Informed Consent Consent Obtained: Verbal [place] Protocol A moment to CARE was completed. [...] recreational acti (more content not included)... Normal [facility] XR KNEE 4V AP/PA BOTH+LAT/ME R [...] Severe medial compartment joint space narrowing with msfz-vh-cusj contact. Small joint effusion. Venous varicosities are noted in the soft tissues. Left total knee arthroplasty is present. IMPRESSION: Advanced medial compartment predominant osteoarthritis of the right knee. Teacher Music: JAM Transcribe Date/Time: Dec 25 2022 11:24A Dictated by : KATERINE BOWSER MD This examination was interpreted and the report reviewed and electronically signed by: KATERINE BOWSER MD on Dec 25 2022 11:24AM EST [id number] CN Normal [facility] Consent for Procedure/Surger yon 12-19-2022 Consent for Procedure/Surgery [id number] 9#1.00CD:127 Normal [facility] Gastroenterology Office/Clin ic Noteon 12-19-2022 Gastroenterology Office/Clinic [...] with voice recognition artificial intelligence software, specifically LUMOback, WillCall and or Park[employer] Social Parking. Substitutions may have occurred due to the inherent limitations of voice recognition and artificial intelligence software. ATTESTATION: Documentation services were performed after patient or guardian consented to allow [employer] to record this visit. STEFFI drug safety specialist and provider reviewed before signing. STEFFI: [...] Revision ( (more content not included)... Normal [facility] Comment on above: Result Comment: [...] Screening for cardiovascular condition Ventral hernia Normal [facility] Consent for Treatmenton 12-05 Consent for Treatment [id number] #1.00CD:127 Normal [facility] Family Medicine Office/Clini c Noteon 12-16-2022 Family [...] left lower leg) Patient seen in the [facility]. Following exam discussed exam is concerning [...] Pb BAUMAN DO, DEJUAN [address] [place] [phone] Additional Instructions: Patient Education BMI for Adults Edema, Xrfz-ch-Rcax Musculoskeletal Pain Problem List/Past Medical History Ongoing Allergic rhinitis Anemia Breast cancer screening Dysphagia History of left knee replacement Non-smoker Normocytic anemia Tenderness of lymph node Venous insufficiency Historical BACTERIAL PNEUMONIA, UNSPECIFIED Hypertension Microcytosis None Screening for cardiovascular condition Ventral hernia Procedure/Surgical History Sclerotherapy (09/02/2022), Revision (12/20/2020), Scl (more content not included)... Normal [facility] Comment on above: Result Comment: [...] numbers. This can be done either in [place] or metric measurements. Note that charts and online BMI calculators are available to help you find your BMI quickly and easily without having to do these calculations yourself. To calculate your BMI in [place] ([place] measurements: 1. Measure your weight in [...] for Disease Control and Prevention: www.cdc.gov ? [place] Heart Association: www.heart.org ? National Heart, Lung, and Blood [place]: www.nhlbi.nih.gov Summary ? Body mass index (BMI) is a number that is calculated from a person's weight and height. ? BMI may help estimate how much of a person's weight is composed of fat. BMI can help identify those who may be at higher risk for certain medical problems. ? BMI can be measured using Swazi measurements or metric measurements. ? BMI charts are used to identify whether you are underweight, normal weight, overweight, or obese. This information is not intended to replace advice given to you by your health care provider. Make sure you discuss any questions you have with your health care provider. Document Revised: 03/15/2020 Document Reviewed: 01/21/2020 [employer] Patient Education ? 2022 [employer]. Obstetrics and Gynecology Edema Edema is when [...] or shiny. (more content not included)... Normal [facility] US LE Venous Duplex Lefton 0 12-16-2022 [...] FINAL REPORT Dictated: 12/16/2022 2:35 pm Giovanni Toelntino M.D. Signed (Electronic Signature): 12/16/2022 2:35 pm Signed by: Giovanni Tolentino M.D. Transcribed by: ANDRAE Technologist: MYLA Connell [facility] Family Medicine Office/Clini c Noteon 11-29-2022 Family [...] With When Contact Information ANA CHÁVEZ CNP [address] [place] [address] Additional Instructions: Patient Education Dysphagia Exercising to [...] Recorded SARS (more content not included)... Normal [facility] Comment on above: Result Comment: [...] these instructions at home: Medicines ? Take aoin-avl-axfuotk and prescription medicines only as told by your health care provider. ? If you were prescribed an antibiotic medicine, take it as told by your health care provider. Do not stop taking the antibiotic even if you start to feel better. Eating and drinking ? Make any diet changes as told by your health care provider. ? Work with a diet and loan operations specialist (dietitian) to create an eating plan [...] person's throa (more content not included)... Normal [facility] Ambulatory Visit Summaryon 0 11-22-2022 Ambulatory Visit [...] AM EDT With: Keith CHUNG MD Where: [facility] Normal [facility] Ambulatory Visit Summaryon 0 11-03-2022 Ambulatory Visit [...] PM EDT With: ANA CHÁVEZ CNP Where: [facility] [place] [address] [address]- \.br\ You Need to Schedule the Following Appointments\.br\ Follow Up with Pb BAUMAN DO, FAM When: \.br\ Where:\.br\ [address]\.br\ [place] [address].br\ \.br\ Medications\.br\ What How Much When Why Instructions\.br\ New albuterol (Albuterol (Eqv-ProAir HFA) 90 mcg/ inh inhalation aerosol) 2 Puffs Inhalation Every 4 hours as needed for Shortness of breath or wheezing Acute viral bronchitis Duration: 21 Days Pickup at [facility] 1985\.br\ New benzonatate (benzonatate 100 mg Cap) 1 Capsules By Mouth 3 times a day as needed for Cough Acute viral bronchitis [facility]: [facility]\ New methylPREDNISolone (Medrol 4 mg Tab) 1 Packets By Mouth As Directed Acute viral bronchitis Duration: 6 Days as directed on package labeling Pickup at [facility] 1985\.br\ Unchanged albuterol (albuterol HFA 90 [...] if questions or concerns \.br\ Pharmacy Information\.br\ [facility] 1985: [address] [place], [place] [id number] [phone]\.br\ Allergies\.br\ No Known Medication Allergies\.br\ seasonal ,dust, [...] instructions at home:\.br\ \.br\ ? \.br\ Take yiqj-pxw-aipxvpy and prescription medicines only as told by [...] and water are not available, use hand water systems designer.\.br\ ? \.br\ Avoid contact with people who [...] have a fever.\.br\ Get help susan Brewer [facility] Family Medicine Office/Clini c Noteon 11-03-2022 [...] for 21 day(s), 6.7 gm, Refill(s) 0, [facility], 167, cm, 11/03/22 12:20:00 EDT, Height/Length Dosing, 108.1, kg, 11/03/22 12:20:00 EDT, Weight Dosing benzonatate, 100 mg = 1 cap(s), Oral, TID, PRN Cough, X 10 day(s), # 30 cap(s), Refills(s) 0, Pharmacy: [facility] 1985, 167, cm, 11/03/22 12:20:00 EDT, Height/Length Dosing, 108.1, kg, 11/03/22 12:20:00 EDT, Weight Dosing methylPREDNISolone, = 1 packet(s), Oral, As Directed, as directed on package labeling, X 6 day(s), # 21 tab(s), Refills(s) 0, Pharmacy: [facility] 1984, 167, cm, 11/03/22 12:20:00 EDT, [...] When Contact Information Pb BAUMAN DO, DEJUAN [address] [place] [address]- Additional Instructions: Patient Education Acute [...] Denies Al (more content not included)... Normal [facility] Comment on above: Result Comment: [...] numbers. This can be done either in [place] or metric measurements. Note that charts and online BMI calculators are available to help you find your BMI quickly and easily without having to do these calculations yourself. To calculate your BMI in [place] measurements: 1. Measure your weight in [...] for Disease Control and Prevention: www.cdc.gov ? [place] [employer]: www.heart.org ? National Heart, Lung, and Blood [place]: www.nhlbi.nih.gov Summary ? Body mass index (BMI) is a number that is calculated from a person's weight and height. ? BMI may help estimate how much of a person's weight is composed of fat. BMI can help identify those who may be at higher risk for certain medical problems. ? BMI can be measured using Swazi measurements or metric measurements. ? BMI charts are used to identify whether you are underweight, normal weight, overweight, or obese. This information is not intended to replace advice given to you by your health care provider. Make sure you discuss any questions you have with your health care provider. Document Revised: 03/15/2020 Document Reviewed: 01/21/2020 [employer] Patient Education ? 2022 [employer]. Pulmonary Medicine Acute Bronchitis, Adult Acute bronchitis [...] condition is (more content not included)... Normal [facility] Family Medicine Office/Clini c Noteon 10-28-2022 Family [...] to discuss effectiveness of treatment plan. Ordered: [facility] Internal Ambulatory Referral 2. BMI 39.0-39.9,adult (Z68.39: Body mass index [BMI] 39.0-39.9, adult) Education attached on health risks of obesity and discusses healthy, balanced diet low in sugar, fat, carbs and exercise regimen ATTESTATION: Documentation services were performed after patient or guardian consented to allow Kia Jean to record this visit. STEFFI drug safety specialist and provider reviewed before signing. STEFFI: [...] HFA 90 (more content not included)... Normal [facility] Comment on above: Result Comment: [...] fruits, and frozen vegetables. ? Avoid buying njbmh-dd-sio foods, such as pre-cut fruits and vegetables [...] Tips for buyi (more content not included)... [facility] Ambulatory Visit Summaryon 0 10-25-2022 Ambulatory [...] PM EDT With: ANA CHÁVEZ CNP Where: [facility] Coding Summary.on 09-03-2022 Coding Summary. CD:[id number]:[id number] Gh0bWw+PGhlYWQ+PE1FV EYaQ01akRFslY9QN7hPK I5CYIQMRAWURA0MGE3fr WI7JLtvZ5OgmiJm HlvvfJMiXP59ORm2QDI9 qWcbYKrnbY9joTOvS1v7 QrYiPE12mT34YPphUXEi JqO6FbBhvzowzUMg E5foDoDnxFAlPwe+PHRh YmxlIHdpZHRoPScxMDAl TkBdlZkoJF4gZl9qWTTi LWNvbGxhcHNlOiBj h9xyLNNdUHghEX6hpQyu Y4SmxUT1WQAgo7f5Rc68 dHI+GMNnKLN6kZuxOGbj s972DpTts6lhKHY3 zMUhVPguECN1Q47fd4L6 WRAgDRWvBFT8kUL1sJ0q zLmsaequZ7HlkNKmKuP3 NWP5xKNvgC4dgEup kwvhkB6bGil+A52WCD5H BBLUCF0VDso6A2GhLwhp dHI+TP34CNLfRD94qVOi xUYub9izgXr8AlPp MUAgRHU3aQdaNHbzp4Pe JBHyM01pfPZmd2E0LDEc qVzjdRFyCnVilXX4oF4v REzwhnbvc9lwbndz Tdqck5lsxb89xH84P07r TTfjNVJdTTJ8ZBNlUPRz kRafci5xjW4vLv5+IDxj a9avq9uxeRg3CwUs IZVwswNloMliDYC9n1Aw Zb45O4RpzPuea2OpLrd0 ue01fTNgp5K1mJQ7CDog NMQvfI8dIYsoFiM6 HZBcYzXgfV18sVAwAHtf Ib2naUdqqRsoVO7xVBVf bywbPZZwcI6fQRZibUMy nIinPJ9bMORmdcmk d667OzEfAQU9IDBxsFNf U1JjdE1mAuCoUHIlQLTd T1FumLKdZIavJ160PGwz ZfV6NESesrBmK9Gj EEMtyHdgWyI0s3R9Ja2U b9GwfsuiKMH2QVhiIRRa JkN9WvDhFoE3M3RnCfa7 EUFdqXjlXV9bB8In NUYyszffhoqwsTP7QQQq BGCjfK77kVAgXHjrTk0f k0B1j130UNRwPOKlaV27 Qp7gnPdnCPEqrZAI iR9oimyqg2fenifoMgPl TRLgWGy2BQy6NVAdkCpk ZiKfWZV5EkO7IRT2hOXk eX0cmEfcbvqncA8d Oyc+Z05wiE9sDKU2OBK4 nhjdXTScdfVfCP28WX68 Y6KqZnrvsFGdqWH+PGRp wuPipBrzSP7jVbEk w2xjf6BrPXhfJ7NzJOUe AExgXyw6OLEdKFO5lIU3 rG2jHJOhYIpcn2I6qWR5 W7VzhtFxqj6ss9qi QHJwNOisL67bwMQpu8P0 AONkzBZ1CDCboUgqLhTn wV63Qvv+ISUboNesk2Sv Wywim1ysz9bzcVx5 IjMwJSIgdmFsaWduPSJ0 i4PcDm49P46pDSgzELWm KZToGQOkSBXdfQdfsz6n aP9vBe9+PGNvbCB3 aLT0qU4tLIRhCfZ8VYiq T916RhNmvLEvQybkb5gh m2aseYh6HvLuCOLakaAw kQwxINR0y0ZaJu11 M65bMRbiTYBiKAUiKZWx PVXoaDtwde9thC3qFs2+ CU3np7wpqt88mH85dZS+ FODwEZO1rYazXCeg ROJjsI6eIBkyPgP8BLFl ZvYhgS00qTYfJZlcMw1v tMptdAnuBL5qSTHvkibx y663XsBrl0eoBWGm wLBrOCobBFA7M41mh3Q5 RSUqTYPgMZP6jFK5qL2v bGlnbjogbGVmdDsgdmVy jRruBVhzPGafH689 IHRvcDsnPlBhdGllbnQg FyCcDPg8D6ZcIqt2IMDb iLozIQ3oqNWxNRdvYc0q sSfcwDeqDO7eLHYr xhdcy275YbZtv0jmLTDa uREaWDneOHM7X83pq9U3 IBUeEBGoJEN3mUS1lQ8o bGlnbjogbGVmdDsg vmVuaSnyZGrkFMguB265 IHRvcDsnPkJpcnRoIERh sCS3YZ35OU98aTZwh2X6 lUG3H5JvVJMtscic jmiftIR8ADLeDUKvdZ74 Oh1nnPeaOk1rGDGdTNZ6 QPCynYXzZ6NxeV1zFtXh IQYeTFNtE2TvuAVi JKrqT585EGpaMnI7FMFh yhEmO8EdMMRyzSwrWvZ2 y7U2Ui9IS0Z6EW30XR49 dKHtv5J9tQP4G9Bw DVMaftuxmvonqIC2DVUl OSYtyR38Wn2rcEemDn7x LDUoBDU7RKRqgUWnG7Ko lL1sOsFvASEdCLLn N5GoqNDxILacY630HRuf YrG6ALSpymBrA3EeDPQy cHaiQcB7n1F4Ef2PHQa6 DB83TN74uVCpt4K6 bID1M4GpAYZjbdnhxxsp gMB2NERxAAKcjC10Zl1k bDftAc7yCKYoUOP0JYGv nUJoN1DudT1aOvGj YHHbXINwP4HkeXZnVPqv C866CUyeKxZ5IJBiolWt C0UsEYJrqSnyAmT3v5N1 Dk8MCSYnTJ58DAK2 tWT1GF70JQ62N6ExCrwk dGFibGU+PHRhYmxlIHdp ZHRoPScxMDAlJyBzdHls EY5cXe7sYXFrIBUq aCkiqLHjQxEez8hpZRXq JVfxWE8osZmpX0QuqSV6 QLFzb0e4Sf25T59cO8Ko dXA+AOSijJK1yVF2 fA2zXdHkMeE5MTtzO722 AdIvpLEeIuopw9hpj3sp pZp6LoJ8HAOqneTufRoi HCK9g0LeKs34L10o IHdpZHRoPSIxNSUiIHZh rGwmxj5eqE5oSs0+PGNv sRN4eSP3tK1fJxIeMcC5 PGrbA480LoPniIBf Yswvn4npm6lwySx6SxVo WIFiteWfxZvsWVH4k8Hj Po80V1ChcGiss3TvMwe9 od31kDRwu0C7kIJ8 A0HbYTDchbrseRItoHiw IE4pUYUrrzsgHOFjeT9e YAXcG6q9KmGyEaB5NWhj E0AebmG4MSAteXPu ZNryXUG6X37qf5A1OEYk UMDbTVM4zCB6lL3vvOly bjogbGVmdDsgdmVydGlj CMvlZYtsR438HVXb rHpbXBQyhW4mFNDxbTBt aRteVE2kGNUbovivJffC BSRCIvgbB6AXEBfRJceB GC61J5TeZvx9MFPu wLdzJS3dyIPaFScvKx1u lGkrmPojTC0bIFEtxgso VUEemL5oZUPugSIyoPja XG4gBGXlcmmgh140 YzDiJZN1VXHuaYKvX1Vt oW6xQbTiFVQkUYItZ8Pv gQPqVJarS168STwqCkV6 AMNlvzPrK6KxALHa yIndZpB5e3L5Py8rSp2p UK8xOWbeWN58XK33zFVr r8L4jVV9P2YpYEPewflo jsekrEU3KEBoCNMw vA18lCMuQZlrEl2sj1V5 o220EYPcDHQueD08Wr7s kFtpGGCjgZFShQ7muulx e9athcbmGzOrAEQz PFa1AHr9WRKpmMyrCrDz TLH3MgA5XAI4hDXqyE0f iSgbeipnpL6oXsk+NTAg EWSsigQ4R6PpKju6 FHWqxKgvLJ1qpTUrEHbs Mk4hrChwcZjtFV0yNLRo dedhKOEddZ1cACXwqZIs jMapKQ1cDOJyksoj y462TfHrWBI5EHPryXZn U0MvcG2qUfRnVGQrMKMy I9ZtlEXcDHwlR285FPbx HsP8YKLolzWbA3Ka DEQelQqjRqD5o7U4Fo4K KZ0blJK5X2RcAsz2BHWt tDcuUC8snAKoTXrrSu0i vLpnuHsmQF9vWHXw clmsOUYxzZ4oUJCgfUVs aUstLL1eZXBfgexij116 ZpLkGVE6NLHznIVuH0Ml pI8vMsXcNJDzRIZz L4SymPKbPDxeL892TWis EjW1RFQybvOzY9UwNMFj fDpkGkQ8b4O1Xd9HpQY3 vVB1w8W1I5GtuYWc BPC7HCE7wokaywy1D6De PjwvdHI+HZ53PKRoHP21 zMYdmRXap5ezsTw0BfOl GJUyWMZ5zJenNTqw n0AzLCBiL38agPMha7U9 IGNvbGxhcHNlOyBlbXB0 gR5iOSvocvvbh0hziyah Qnajb6drfg61mG38 T50tXYviGNTrNSHgQOHh JKCsyQhckt9dhW1dNy6+ YOMlzSZ8oCD1lU9dXoAx XqE6BIdrI136MeYx aIPhVpmhk8wlk8fetCt4 IjIwJSIgdmFsaWduPSJ0 i7YvXu61X59lVFncZDGd PSIyMCUiIHZhbGln ej8gyX7wYs1+NN7rv7nk rz32hS27nBZ+PHRkIHN0 oGacMCwgAOHciP8wHBqf CaB8YDOrHfIbtO61 vKJlACrlFt7ffLenaTyd IE6nAYObbcunz523BrTl k6qeJGYwwPWmGZlbMID1 P90qk6F2DXWhWZSt GUX7sJP7yE5okUanpsxc bGVmdDsgdmVydGljYWwt HSenO049UCTmsZueUxQp tVOxX7lrhdMYKN4v OjwvdGQ+AXSgPLC5cIeq PTmzGNEptC0iJZCbK2n0 DpCwIuD2JKpsW7IuofQ9 IGJvbGQgMTBwdCBU uT4krqzdt2gwmprgXtKn GLXrYTa9SKy3NMZjnZqf FqNlLZK8RzB5WRO1mKQq tJ7hsXjmctzivC1v Oyc+RklOOjwvdGQ+PHRk OEJ7gNbnGMfiFENprU3j GAHhX3t7DvNhApD4QXry B2CqpsK4TUOyaZCs JOFgcTOLwJ8etgeow2vr locwRqGaRWPqIWx3JFz5 JOLkjXcmXuMkQQV8KhA1 XBS7rGQpiL3uuRwh tooowB1jEzb+TVJOOjwv dGQ+SZXgMDG0zFaaAMrw JLNebH2rRAUiQ3y3QbZq NjB1EXplN1IqfhQ9 ZDVyjPWcRQXhtLNNeJ6t djnpv2adzwltJrQcOAOk SEn5FHr3QXGdrCjoTlTb YWV6VgI9EXN0wJFq zM9wdYerpnhpyP0tRrz+ NBO5UBH8YQ05AG40M5Dr PjwvdGFibGU+PHRhYmxl IHdpZHRoPScxMDAl JyBz (more content not included)... Normal [facility] Consent for Procedure/Surger yon 09-03-2022 Consent for Procedure/Surgery [id number] 77#1.00CD:127 Normal [facility] Discharge Instructionson Discharge Instructions [id number] 97#1.00CD:127 Normal [facility] Cardiovascular Reporton 08-08 Cardiovascular Report [id number] 5#1.00CD:127 [facility] Consent for Treatmenton 08-08 Consent for Treatment [id number] #1.00CD:127 Normal [facility] Inpatient Clinical Summaryon 09-02-2022 Inpatient Clinical Summary [place] [id number] Clinical Summary Person Information: Name: JESSENIA WING Age: 51 Years : 1970 Sex: Female PCP: Pb BAUMAN DO Marital Status: Race: White Ethnicity: Non- or Language: Swazi Visit Id: Visit Reason: I82.893//US GUIDED INJECTION SCHLEROTHERAPY Speciality: Acuity: Enc Type: Ambulatory/Same Day Surgery Med Service: Surgery Arrival: 09/02/2022 11:55:38 Discharge: Dispo Type: Address: [address] [place] [address] [phone] Provider Notes: Diagnosis: Problems Active Tenderness of [...] Dover MD Follow up: With: Address: When: [address] [address] Business (1) 09/30/2022 10:30 AM Comments: Keep scheduled appointment Patient Education Information: CV - EVLT Discharge Instructions (Custom) [facility] Inpatient Patient Summaryon 09-02-2022 Inpatient Patient Summary [address] [address] Patient Discharge Instructions PERSON INFORMATION [...] results: None Follow up: With: Address: When: [address] [address] Business (1) 09/30/2022 10:30 AM Comments: Keep [...] concerns, call to speak with your doctor. [facility]: [phone]. Medication Leaflets: You may receive a survey from [employer] asking you to rate your care experience. Your feedback is important and will help us understand what we do well and how we can improve the quality of care we provide to you, your loved ones and our community. It?s an honor to serve you. Thank you for choosing [facility] Normal [facility] Operative Reporton Operative Report SURGERY DATE: 09/02/2022 [...] No complications. Rita Dover M.D. Dictated: 09/02/2022 [id number] Transcribed: 09/02/2022 [facility] Comment on above: Result Comment: Elec [...] concerns, call to speak with your doctor. [facility]: [phone]. Normal [facility] Coding Summary.on 08-20-2022 Coding Summary. CD:[id number] Gh0bWw+PGhlYWQ+PE1FV WCwV89xkDEpfJ0XZ0eTL E4ATTLGDZSXMO3ESS6jq LH7WPrnC3AwbbXm ZdekaABeCL93JMl2RQV1 nSmwUDzzsH3thMYpW4u5 UsQxBE73aL77SPsaXICx FkX6ZgFeztogrGVv T5grBoBsiSDnVuj+PHRh YmxlIHdpZHRoPScxMDAl DwZmqKchYF0aTf0lLQCe LWNvbGxhcHNlOiBj y3foOHLqEDxzQN3ucKif H2LhkUN8CBMfr1u6Ep62 dHI+OSAcAOC3iKhyULxo h822TrJnf8nyXFM8 iBNbOPmjYPV1N23vu5C1 TWYuGLXvGGM8yWV2fV5p tIrmlfwzI2ZduYHsWvO0 EEQ0dDCeaJ8owPxr gpkyfR6dUrd+R27AKE8B SKPGKH2ZLak4L7UrYpwv dHI+ZS74ZBMlGG01oQWa gCVil2surJr3SmSq HQFcQXK1bRvoPWqhw3Vp QAYgJ47ecZPvo9B8VTCa dKkheMNwTqQkhTU8oQ9k PObkjsaxv7iyempi Svkkx3lwmv10zF86Y74b ZTtxQLWdFAY3RDQyXRTp oZxucx5ncY7jXn5+IDxj y8xgb9vpjFt5UiMe YMZmatGtaYnsEXF0x1Nf Ik31D8BylOfpr8TqEuo6 hf14gRQtu1L6uUB7RRxs KBAqbZ2dFUinXrR0 QVJzCfCvhY31eMEaMPaq Qi1moYcoqKpmQG3dXKGl jsynTPFveY2yOOCujMXi gYilGM7gWTAgpzpb r616VwLxHLR4EKZptJRn G6JmfY6bLkCyXWUaVCFk G6QsjTMsFGdvQ631LVnq PyS9MPGebsGtE9Hk NEPviHxmYsC3l0J0Lj7Y f6GaouwsFCS3DMjiTVSz RoK3DlReRbU0S9AlKcj0 XRLcuVbpZS7kD2Qe BLZjkejfbsuzqDO4SFWp AYWowC75hTNgFGviZc4a x6Z0s904LXOqROAtjW24 Ld3mhIizYKDmeUQP uH0izuaai6xbaumjTfRs RACpNIm3KMw8IVAjaUco BtXnAPN7ZxO9EAJ8eJYg rK2gqNamyfhujI3k Oyc+U75zqI3mGXV4ARZ8 iqgfVVNraeWxOZ94WD64 X5EuKzrqbQNmbUI+PGRp jxNvsChkIQ8vHcUp n3xzd1ZyGQleI9VcPOWi FJynLip9IRFpHYV1fCF5 iJ1qCLAoDRhdd6Z3tEQ4 J8MneuUlxq2se4jj FLLzVKatH21bvJSbt6I1 ZIHmeIW2GRKefJebWgUa wS94Lxg+VWYevWxrf6Uc Zejjn7ebx8bzvOt2 IjMwJSIgdmFsaWduPSJ0 h6ToNk79W21wVTocVWHy JNZzWGHnKALfyEkjai6l fF3dEc4+PGNvbCB3 pPQ9hS8vCSPwItQ2FQlx O541AlAorSOaRndyb0hg w4jupJu7DtFlSLAmgqTm fIysLII7m7GkHa77 Z30qMXdlRRNlXKQdBXTl JXXroXymze5kaE0rXe0+ KF1zh8grcy39rD10oZH+ TLReQGI5kUjiNUpx ULTirK5dGDdxJtV3JAGh GkOdjH37kKPjUYehKi7n oBbehKvfEB6jKLCvslnf b618YlYph7ibCKNw lTBzFVthNKF1Y58tq4G5 DDCqQMErGFW7hMB9jG2m bGlnbjogbGVmdDsgdmVy nFqdBBaiFIwmP626 IHRvcDsnPlBhdGllbnQg IeMzXCh9G2AdRhc9NYKx mJjeJE1jyRCmPEgfYf1p tQposYisJE5rBSEv wnrcz154OkRrk1tgOFHs sAZnYSyiHPL7K49rl1G8 OJBlIWXwCUC7eBI9vV3k bGlnbjogbGVmdDsg prFjlMrhBXzrPOouF662 IHRvcDsnPkJpcnRoIERh oXS7WM95YD30sXFeb0W6 aBE2M8IxJPFrhbcz wxewpLU4UPRzVTOspD16 Nj0hyQsbHp6nZFKmSKQ0 UFJcdIInE9TtiR2ePzNd HTImWUXfC6RppXXa RGbbV576RDseHbY5HVMn gwSlZ2JlGYCsbHuiNhB2 k6W5Qt7JA2Q0VM38IB24 lETpy1I6dEJ7R0Fi DPFecuqkrulxqLX8XJPd JPVwaK03Zt7dnParKw2s QFKaFCZ7CLShpTVpV8Cq wD3sEhLnLXCiWEFg F9MmrELdCMixM619MWvb QjJ1BEHlmwKjI9OuNXQx yFnmIoS9e4M8Ia0QCGj4 VI40QM43jWDdc3J1 kVL0K3MoGTShxutlhibd vPK3FDXvVTYpqU78Yo2n eSgvPo1jAOLxOVO3ZJKh xSHnI1WplM0vAoVy ZCQwXANdK1ZhtFAhTCdm P416WZdtAmH7RLEizoTo B8TgKHEhcXqbXvY3d2J9 Zv3FNJLsWT25FBB3 kQP4XT76RZ76S8YdQegk dGFibGU+PHRhYmxlIHdp ZHRoPScxMDAlJyBzdHls VR3eQl2wWOThAFJd xQppcKXxRmSnv5zxIONf KEbrHN7vrSebE6TwlPH3 BOYys6o7Tk31U29pG2Ql dXA+NSJugMC3zUW0 yS6pZcNcLtX0BQkpG201 VpCgzISjOppfs3ltj5ej hKa8CcA4NVFedxRcmXhg DIF1z2DvEz60Y52p IHdpZHRoPSIxNSUiIHZh oNcsqs7udV3xOl0+PGNv qDL0yIJ7sD4jGqCoZrI9 ARbqH523ZjDqzWLf Mitjd7bni8nzfKj8OjZf ASPhkwDofLaqIVX3f2Qy Gq52H2BumBngp2HhJdr1 tl02vDWmo6Y6rBK6 K8FfFTLwxopyfEXjbUlc KX0hHIStwdcjKESjjB1g URJjZ0w3ShBaYgO6FAfy H9TrdwH6SCIglDOc SSnrVYC7C51wj1X9KGGi RZJcFIX9oXQ4tI3lqRxy bjogbGVmdDsgdmVydGlj EOnlPRpfS479HXDk mHooNSWurK7nOXDflUBt lWzaPK6dEXAggpbqWvxM FXHMXeylT6ZJCJuGBunT BT53I2QvHqc2EDHe eUxyAT9qbINtVTpfFc2o lGyhcTfxRL2xUUMsimfo DFNonW3tFYBwpKDaiOpc AE1eUBNymhcxs345 AfWuRYR6XTZulILeE8Rl wU0qGsZpNXNrCDBbR9Vn fEQrDNkmC103QUhcWlW9 RBWwlaYeJ9RrSKNi jGyqWvO1a1E3Sb1iOy7g OI6pTCsxTJ27QD73qEJh l5U1rCZ7S1VvFZAwbzac jdredMN2ZNXdZIMk hX34vFFxUYolWq2bq2J1 d773GGZrPBSmxZ43Qb5c sWlsPVWkaYRXsQ0dbqcb o7szxdzeZnWeBGGp EZx2SFd2BOHxqLtcUuSw MVE8ZyX4MHX9mDQxuY8g oFpxjcyplO9eBro+NTAg TZOdohQ5M9QzSbx1 BVKvxGqeLK5cgSOgGLuk Pb2vuUlgiXktYL6yHRBf dychILPmrE8cWDOvyYYd eTpiTW1jKDCimvpj l300ZrUbLQD4GZLieOBe M5FmlZ7qZiYuXYNxEERf P8ZbwMThASuwS484XJeb XmH9UTWsqlJqO7Qz XUAveMgmGiH8k4C3Ng5H UH9lkQT3X2TqYxf5MMNo sNeuEO2tlNRkWKoiXf2v ySbllDzdXN3mFGZr cfedSKYvmJ1nHKUdmOWx rLigUT0oPYReoomeg736 AuWhENL7NXBmpBLjR7Bi tT1zIcCzRDCeUGTh P7IoqRQrSMovS830IYgl IxS3GXYfckJcT0VmQEGf bMwdXkD1g4U3Jk7EzKZi MFKtTS14HZ44QZ58 P9BvHcnwoBEraBB+PHRh YmxlIHdpZHRoPScxMDAl YgOlmXagUJ9jQe3wNRYc LWNvbGxhcHNlOiBj f0yoNUPvEDpsDL7fcHma Z4GctZE1ZQWqn3r5Al29 J74iI5DduIT+PGNvbCB3 nNI2zT2kVdVcEgO9 QTwoG530HfGevEUiKdgr x3evy1svmTc0CbQrQRNr gjPqqZxqYOL5f2CgRl38 Y24pEBwdDQEtZOPa AEWmMCSguEkmrr3qyO7b Ii8+AYFixHG6xFE4cG7a GkGaDmL0FBdyT257ZlQc uNGfCcanJ05mL7Pe dXA+JTCwLmi2FXLmuQax QT3llETwNResIy4rPFE8 MsBuQrAuDYnbU2UwDJZq horrhnrmnYP2DEAg XWFwtQ51Ba9qvGufAz2f PKBbKUM3VRUyiCFfR8Ou qV1eRlVaILFrBRCvQ7Gv xINnOLuuG702FOdb ZxQ0NBHgawWqH2SgNDIa zNgjKcG2r7U3Sy2PpVwb vPZvTQ4jTaTbPAa0O6Yx Abz3ETCkfFkyII1q dCXfHKvaGz9poNxfvJri YI6gOJNogezac763PaFx c7egIGDxcNPdJCtfLOA2 D38ic2O7VGVdTDRc PZS3wIR5qA2ebUjvdjnd bGVmdDsgdmVydGljYWwt PZltK157ORAykJqrUwOT Dmv8N3KnQuc3XKUc eWlpCB6bjHUjQTnvOp6m ySxwnCnxBA6qFRQszfia k175DwHhe0usLFJgjYFk UByqNCT7D33ei1J1 DMMaNHNhNJG1gID8sZ2u bGlnbjogbGVmdDsgdmVy hIhgQKeeSFmtF479HSRs hIqoPk0XCud4F3Ph Mka7SJUkaLegUT6ivQIk NWvdAm9yfNdaeMsyVJ3h ITRmlcqdl686IxJhg5yf IDEwcHQgVGltZXM7 H85uq3T4MBRlNSXqGLM1 bRS2wD7lsLwsprjrxVUb dDsgdmVydGljYWwtYWxp U090PVYllUkcGiFn eWVyOjwvdGQ+HT28uv57 C2GdEskqXgr9OBFyHJP2 tTH2qD0zHUWcSTxbf4S9 qGK9E0DpmgJsed3g b2xs (more content not included)... Normal [facility] Pre-Certification Formon Pre-Certification Form [id number] #1.00CD:127 Normal [facility] Consent for Treatmenton Consent for Treatment [id number] #1.00CD:127 Normal [facility] Heart and Vascular Office/Cl inic [...] influenza virus vaccine, inactivated 03/2019 Recorded Normal [facility] Comment on above: Result Comment: Elec tronically Signed By: Stanislaw CROCKER, Rita Long\.br\Date and Time Signed: 08/08/22 15:58 EST Physician Orderon 08-08-2022 Physician Order [id number] #1.00CD:127 Normal [facility] CNOVon 02-22-2022 CNOV Office Visit (LOORRM) JESSENIA WING ([id number]) 1970 F Date Time Provider Department 02/22/22 [...] Recommend conservative treatment with activity modification, ice, pcoy-iil-oveokpi NSAID. If this becomes more significant she [...] (osteoarthritis) of (more content not included)... Normal [facility] XR KNEE 3V AP/LAT/MERCHANT L Ton [...] significant abnormality. ----- IMPRESSION: No acute findings. 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[employer] Transcribe Date/Time: Feb 22 2022 2:43P Dictated by : CANDY FORMAN MD This examination was interpreted and the report reviewed and electronically signed by: CANDY FORMAN MD on Feb 22 2022 2:47PM EST [id number] Normal [facility] XR KNEE POST OP 3V AP/LAT/ME RCHANT LEFTon 02-22-2022 [facility] HEMATOLOGYOrdered By: Eloina Tinoco on 11-14-2021 Erythrocyte [...] Anion gap [Moles/Vol] 12 mmol/L Normal 9-18 [facility] Comment on above: Performed By: #### C BC, BMP ####[place] [phone] Calcium [Mass/Vol] 8.5 mg/dL Normal 8.5-10.2 [facility] Comment on above: Performed By: #### C BC, BMP ####[place] [phone] Chloride [Moles/Vol] 104 mmol/L Normal 97-105 [facility] Comment on above: Performed By: #### C BC, BMP ####[place] [phone] CO2 [Moles/Vol] 23 mmol/L Normal 22-30 [facility] Comment on above: Performed By: #### C BC, BMP ####[place] [phone] Creatinine [Mass/Vol] 0.79 mg/dL Normal 0.58-0.96 [facility] Comment on above: Performed By: #### C BC, BMP ####[place] [phone] eGFR- Amer. >60 Normal >60 [facility] Comment on above: Performed By: #### C BC, BMP ####[place] [phone] eGFR-All Other Races >60 Normal >60 [facility] Comment on above: Result Comment: eGFR (Estimated [...] GFR. Performed By: #### C BC, BMP ####[place] [address] [phone] Glucose [Mass/Vol] 127 mg/dL High 74-99 [facility] Comment on above: Performed By: #### C ANMOL, BMP ####[place] [address] Potassium [Moles/Vol] 4.6 mmol/L Normal 3.7-5.1 [facility] Comment on above: Performed By: #### C ANMOL, BMP ####[place] [id number] [address] Sodium [Moles/Vol] 139 mmol/L Normal 136-144 [facility] Comment on above: Performed By: #### C ANMOL, BMP ####[place] [address] [phone] Urea nitrogen [Mass/Vol] 12 mg/dL Normal 7-21 [facility] Comment on above: Performed By: #### Js COREA, BMP ####[place] [address] [phone] CASE MANAGEMon 12-21-2020 CASE MANAGEM HNO ID: [id number] Author: Kirstie Mcfarlane RN Service: Case Management [...] recommended patient is agreeable to having [facility] to provide this service as they did following her initial knee surgery in November 2020. TRANSPORTATION ARRANGEMENTS: Transportation Arrangements: Car ADDITIONAL CONTACT RESOURCES Discharge home. No home care needs. SIGNATURE: Kirstie Mcfarlane RN PATIENT NAME: Jessenia Tovar [place] DATE: December 21, 2020 TIME: 1:01 PM PAGER/CONTACT #: [phone] [facility] CASE MGT INALICE Forte 2020 CASE MGT INIT POOJA HNO ID: [id number] Author: Kirstie Mcfarlane RN Service: Case Management [...] symptoms;To improve my functional status Health Insurance: [employer] Health Issues Impacting Discharge Plan: Chronic Chronic: htn, asmtha Last Discharge Date: 11/19/16 Is this Within the Past 30 days? Last discharge within 30 days: No Advance Directive: Current Advance Directive: Health Care Power of Registered Nurse Maternal Child In Chart: Yes Up To Date and [...] Walker Has the Patient Been in a Fpc Facility in the Past 30 days?: No SOCIAL: Living Arrangements: Home Lives With: Spouse Financial Resources: Employed Primary Contact: Extended Emergency Contact Information Primary Emergency Contact: Orlando Wing Address: [address] [place], [place] [id number] [place] [address] OF [place] Mobile Relation: Spouse Supportive Patient [...] Completely I feel financially burdened by my whi-ry-opifis expenses for my prescription medication:: 0 - Disagree Completely Risk Score: 0 Patient is categorized as: Low risk < 2 Are you interested in bedside delivery of your medications? Yes Is Patient Psychosocially Complex?: No ASSESSMENT AND PLAN: Medical Needs: Medical Needs: None Psychosocial Needs: Psychosocial Needs: None FREEDOM OF CHOICE EXPLAINED: [place] of Choice Given: Yes Level of Care [...] 21, 2020 TIME: 9:30 AM PAGER/CONTACT #: [phone] Normal [facility] CBCon 12-21-2020 Absolute nRBC <0.01 Normal <0.01 [facility] Comment on above: Performed By: #### C SANT[place] COREA ####[facility] [phone] Erythrocyte distribution width (RBC) [Ratio] 15.4 % High 11.5-15.0 [facility] Comment on above: Performed By: #### C ANMOL, BMP ####[address] Hematocrit (Bld) [Volume fraction] 29.8 % Low 36.0-46.0 [facility] Comment on above: Performed By: #### C ANMOL, BMP ####[address] Hemoglobin (Bld) [Mass/Vol] 9.3 g/dL Low 11.5-15.5 [facility] Comment on above: Performed By: #### C ANMOL, BMP ####[address] MCH 26.9 pG Normal 26.0-34.0 [facility] Comment on above: Performed By: #### C ANMOL, BMP ####[address] MCHC (RBC) [Mass/Vol] 31.2 g/dL Normal 30.5-36.0 [facility] Comment on above: Performed By: #### C ANMOL, BMP ####[address] MCV (RBC) [Entitic vol] 86.1 fL Normal 80.0-100.0 [facility] Comment on above: Performed By: #### C ANMOL, BMP ####[address] Platelet mean volume (Bld) [Entitic vol] 10.6 fL Normal 9.0-12.7 [facility] Comment on above: Performed By: #### C ANMOL, BMP ####[address] Platelets (Bld) [#/Vol] 110 10*3/uL Low 150-400 [facility] Comment on above: Performed By: #### C ANMOL, BMP ####[address] RBC (Bld) [#/Vol] 3.46 10*6/uL Low 3.90-5.20 [facility] Comment on above: Performed By: #### C BC, BMP ####[facility] [phone] WBC (Bld) [#/Vol] 6.64 10*3/uL Normal 3.70-11.00 [facility] Comment on above: Performed By: #### C BC, BMP ####[facility] [phone] CNDSon 12-21-2020 CNDS HNO ID: [id number] Author: Stanley Bunch PA-C Service: Orthopaedic Surgery Author Type: Physician School Year Nanny Type: Discharge Summary Filed: 12/21/2020 9:31 AM Note Text: Attestation signed by Rex Meredith Jr., MD at 12/21/2020 10:11 AM agree DISCHARGE SUMMARY Patient Name: Jessenia Wing : 1970 ADMISSION DATE: 12/20/2020 DISCHARGE DATE: 12/21/20 Attending Physician: Rex Meredith Jr., MD Primary Diagnosis: Failure of total knee replacement, 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[facility]) [T84.976A, Z96.996] Operations During Hospitalization: Procedure(s) (LRB): REVISION JOINT [...] Discharge Medications: Jessenia Wing Home Medication Instructions JOE:[id number] Printed on:12/21/20 1892 Medication Information acetaminophen (TYLENOL EXTRA STRENGTH) 500 [...] Dept Phone 01/11/2021 11:30 AM DEISY GONZALEZ [phone] SIGNATURE: Stanley Bunch PA-C PATIENT NAME: Jessenia Wing DATE: 12/21/2020 TIME: 9:31 AM PAGER/CONTACT #: [phone] [facility] CONSULT PROGon 12-21-2020 CONSULT PROG HNO ID: [id number] Author: Toan Can MD Service: General Internal [...] meaning may be extrapolated by contextual derivation [facility] THERAPY NTon 12-21-2020 THERAPY NT HNO ID: [id number] Author: Paige Stockton, OTR/L Service: Occupational Therapy Author Type: Occupational Therapist Type: Therapy (PT/OT/Speech/Resp) Filed: 12/21/2020 12:41 PM Note Text: Occupational Therapy Evaluation SERVICE DATE: 12/21/2020 SERVICE TIME: 1151 to 1206 ROOM: [place] [address] Recommended Discharge Disposition: Home Anticipated Discharge Needs: [...] Occupational Therapy Problem List: Safety Deficits;Impaired Self Long Term Environment Patient Lives With: Family Assistance Available: [...] living (ADL) Interventions Provided: Evaluation $ Evaluation-Low (44710) Billed Units: 1 unit Training AND education [...] DATE: December 21, 2020 TIME: 12:40 PM [facility] THERAPY NT HNO ID: [id number] Author: Kirsten Uriostegui, PT Service: Physical Therapy Author Type: Physical Therapist Type: Therapy (PT/OT/Speech/Resp) Filed: 12/21/2020 12:06 PM Note Text: Physical Therapy Evaluation SERVICE DATE: 12/21/2020 SERVICE TIME: 1059 to 1140 ROOM: [id number] Recommended Discharge Disposition: Outpatient Physical Therapy. Pt [...] walking-musculoskele carol Interventions Provided: Evaluation;Therapeut ic Exercise (88656);Gait Training (80376) $ Evaluation-Low (31569) Billed Units: 1 unit Therapeutic Exercise (77542) Treatment Minutes: 10 $ Therapeutic Exercise (88108) Billed Units: 1 unit Gai (more content not included)... [facility] ANES POSTPROC EVALon 021 ANES POSTPROC EVAL HNO ID: [id number] Author: Zeke Prajapati II, DO Service: Anesthesiology [...] total knee replacement, 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[facility]) (Failure of total knee replacement, 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[facility]) [T84.018A, Z96.659]) Surgeons: Rex Meredith Jr., MD [...] December 20, 2020 TIME: 4:27 PM CSN: [id number] [facility] ANES PRE-OPon 12-20-2020 ANES PRE-OP HNO ID: [id number] Author: Adan Viera MD Service: Anesthesiology Author [...] December 20, 2020 TIME: 11:29 AM CSN: [id number] [facility] Anaerobe Cultureon Anaerobe Culture Culture Result - Negative for anaerobes. No Cutibacterium (Propionibacterium) acnes isolated. [facility] Comment on above: Performed By: #### A NACUL ####[facility] [place], [place] [phone] BRIEF OP NOTon 12-20-2020 BRIEF OP NOT HNO ID: [id number] Author: Rex Meredith Jr., MD Service: Orthopaedic Surgery Author Type: Physician Type: Brief Op Note Filed: 12/20/2020 3:24 PM Note Text: OPERATIVE/PROCEDURE REPORT LOG ID: [id number] SURGERY/PROCEDURE DATE: 12/20/2020 INCISION/PROCEDURE START TIME: 1:19 PM INCISION CLOSE/PROCEDURE END TIME: 1523 SURGEON(S)/PROCEDURA LIST(S) AND DIESEL MECHANIC(S): Surgeon(s) and Role: * Rex Meredith Jr., MD - Primary Physician School Year Nanny: Wilver Newberry PA-C; Deisy Gonzalez PA-C SURGERY/PROCEDURE(S) : Left knee revision ANESTHESIA: Spinal SURGERY/PROCEDURE DETAILS: Left knee revision PRE-OP/PRE-PROCEDURE DIAGNOSIS: Aseptic loosening left knee revision POST-OP/POST-PROCEDU RE DIAGNOSIS: Same as Preop ESTIMATED BLOOD LOSS: 100 mls SPECIMENS: open cultures IMPLANTABLE DEVICES: [place] TS DRAINS: None COMPLICATIONS: None PARTICIPATION IN SURGERY/PROCEDURE: No qualified resident/fellow was available. I/primary surgeon/proceduralis t performed the entire procedure. SIGNATURE: Rex Meredith Jr, MD PATIENT NAME: Jessenia Wing DATE: December 20, 2020 TIME: 3:23 PM Normal [facility] Basic Metabolic Panlon 12-20 Anion gap [Moles/Vol] 10 mmol/L Normal 9-18 [facility] Comment on above: Performed By: #### C BC, BMP ####[place] [phone] Calcium [Mass/Vol] 8.5 mg/dL Normal 8.5-10.2 [facility] Comment on above: Performed By: #### C BC, BMP ####[address] Chloride [Moles/Vol] 111 mmol/L High 97-105 [facility] Comment on above: Performed By: #### C BC, BMP ####[place] [phone] CO2 [Moles/Vol] 23 mmol/L Normal 22-30 [facility] Comment on above: Performed By: #### C BC, BMP ####[place] [phone] Creatinine [Mass/Vol] 0.73 mg/dL Normal 0.58-0.96 [facility] Comment on above: Performed By: #### C BC, BMP ####[place] [phone] eGFR- Amer. >60 Normal >60 [facility] Comment on above: Performed By: #### C BC, BMP ####[address] eGFR-All Other Races >60 Normal >60 [facility] Comment on above: Result Comment: eGFR (Estimated [...] GFR. Performed By: #### C ANMOL, BMP ####[address] Glucose [Mass/Vol] 140 mg/dL High 74-99 [facility] Comment on above: Performed By: #### C BC, BMP ####[address] Potassium [Moles/Vol] 5.0 mmol/L Normal 3.7-5.1 [facility] Comment on above: Performed By: #### C BC, BMP ####[address] Sodium [Moles/Vol] 144 mmol/L Normal 136-144 [facility] Comment on above: Performed By: #### C BC, BMP ####[address] Urea nitrogen [Mass/Vol] 9 mg/dL Normal 7-21 [facility] Comment on above: Performed By: #### C BC, BMP ####[place] [phone] CBCon 12-20-2020 Absolute nRBC <0.01 Normal <0.01 [facility] Comment on above: Performed By: #### C BC, BMP ####[place] [phone] Erythrocyte distribution width (RBC) [Ratio] 15.8 % High 11.5-15.0 [facility] Comment on above: Performed By: #### C ANMOL, BMP ####[place] [phone] Hematocrit (Bld) [Volume fraction] 33.1 % Low 36.0-46.0 [facility] Comment on above: Performed By: #### C ANMOL, BMP ####[place] [phone] Hemoglobin (Bld) [Mass/Vol] 10.4 g/dL Low 11.5-15.5 [facility] Comment on above: Performed By: #### C ANMOL, BMP ####[place] [phone] MCH 27.2 pG Normal 26.0-34.0 [facility] Comment on above: Performed By: #### C ANMOL, BMP ####[address] MCHC (RBC) [Mass/Vol] 31.4 g/dL Normal 30.5-36.0 [facility] Comment on above: Performed By: #### C ANMOL, BMP ####[address] MCV (RBC) [Entitic vol] 86.4 fL Normal 80.0-100.0 [facility] Comment on above: Performed By: #### C ANMOL, BMP ####[place] [phone] Platelet mean volume (Bld) [Entitic vol] 11.0 fL Normal 9.0-12.7 [facility] Comment on above: Performed By: #### C ANMOL, BMP ####[address] Platelets (Bld) [#/Vol] 120 10*3/uL Low 150-400 [facility] Comment on above: Performed By: #### C ANMOL, BMP ####[facility] [phone] RBC (Bld) [#/Vol] 3.83 10*6/uL Low 3.90-5.20 [facility] Comment on above: Performed By: #### C BC, BMP ####[facility] [phone] WBC (Bld) [#/Vol] 6.04 10*3/uL Normal 3.70-11.00 [facility] Comment on above: Performed By: #### C BC, BMP ####[facility] [phone] CONSULTon 12-20-2020 CONSULT HNO ID: [id number] Author: Toan Can MD Service: General Internal [...] POSIFLUSH) 2-10 mL INTRAVENOUS q 12 H eRx Meredith Jr., MD - ondansetron 4 mg [...] 12/20/20 1630 102/ (more content not included)... [facility] NURSING PROGon 12-20-2020 NURSING PROG HNO ID: [id number] Author: Cherie Rose RN Service: Nursing Author Type: Registered Nurse Type: Nursing Progress Note Filed: 12/20/2020 5:21 PM Note Text: Nursing Progress Note Patient Name: Jessenia Srivastavar Patient Location: [address]/[facility] D- Transfer Note: Patient transferred into room/unit 502-2 in stable condition. Actions taken: Patient and family oriented to 5D unit policies and procedures. Educated on falls risks, falls precautions, and use of call almeida prior to getting OOB. Patient resting in bed. Call light within reach. All needs met at this time. This note was completed by: Cherie Rose [facility] OPERATIVE NOon 12-20-2020 OPERATIVE NO HNO ID: [id number] Author: Rex Meredith Jr., MD Service: Orthopaedic Surgery Author Type: Physician Type: Operative Report Filed: 12/21/2020 8:04 AM Note Text: OPERATIVE/PROCEDURE REPORT LOG ID: [id number] SURGERY/PROCEDURE DATE: 12/20/2020 INCISION/PROCEDURE START TIME: 1:19 PM INCISION CLOSE/PROCEDURE END TIME: 3:54 PM SURGEON(S)/PROCEDURA LIST(S) AND DIESEL MECHANIC(S): Surgeon(s) and Role: * Rex Meredith Jr., MD - Primary Physician School Year Nanny: Wilver Newberry PA-C; Deisy Gonzalez PA-C - Aline was international first officer; his assistance consisted of assistance with positioning, retraction and closing the wound SURGERY/PROCEDURE(S) : Left total knee revision ANESTHESIA: Spinal SURGERY/PROCEDURE DETAILS: Left total knee revision PRE-OP/PRE-PROCEDURE DIAGNOSIS: 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 The femur consisted of a size [...] with n (more content not included)... Normal [facility] SURGICAL PATHOLOGYon 021 SURGICAL PATHOLOGY Specimen originated from [facility] Specimen #: [id number] Submitting Physician: REX MEREDITH JR, MD FINAL DIAGNOSIS Hardware, left knee, removal - Unremarkable hardware (gross examination only). APH/KVB/lbk 12/21/2020 Gaston Florez M.D. (Electronic Signature) SPECIMEN SUBMITTED A: REMOVED HARDWARE FROM LEFT KNEE CLINICAL DATA FAILURE OF TOTAL KNEE REPLACEMENT, INITIAL ENCOUNTER ([facility]); LEFT TOTAL KNEE REVISION GROSS DESCRIPTION A. [...] on the polyethylene articular insert saying LEFT [id number] . No tissue is present. No sections are submitted. The specimen is for gross examination only. The specimen is reviewed by Dr. Florez. Gross examination performed at [facility], [address] [place] [address] KVB/lbk 12/21/2020 Date of Report: 12/22/2020 Date of Procedure: 12/20/2020 Date of Receipt: 12/20/2020 Submitted by: REX MEREDITH JR, MD Location: [facility] Diagnostic interpretation performed at [facility], [address] [place] [address], [place] [address]. CLIA Number: [id number] [facility] Wound Culture/Stainon 2020 Wound Culture/Stain Sp. Request/Comment: - Specimen received in anaerobic transport medium. Smear Result - No organisms seen No Polymorphonuclear Leukocytes Culture Result - No growth 2 days [facility] Comment on above: Performed By: #### W CUL ####[facility] [id number] [place], [place] [address]Jodqxwtgw[facility] [address] [place], [place] [phone] Type and SCR (30D)on 021 ABO/RH(D) Positive Normal [facility] Comment on above: Performed By: #### T SCR30 ####[facility] [phone] Large Joint Arthro/Inj: R kn ee joint [facility] Vital Signs Date Time Vital Sign Value Performing Clinician Faci litzuleika 06-27-2023 10:58-0500 Diastolic blood pressure 96 mm[Hg] DIANA CEJA [facility] 06-27-2023 10:58-0500 Mean blood pressure 107 mm[Hg] DIANA CEJA [facility] 06-27-2023 10:58-0500 Systolic blood pressure 130 mm[Hg] DIANA CEJA [facility] 06-27-2023 10:47-0500 Diastolic blood pressure 92 mm[Hg] DIANA CEJA [facility] 06-27-2023 10:47-0500 Mean blood pressure 104 mm[Hg] DIAAN CEJA [facility] 06-27-2023 10:47-0500 Systolic blood pressure 128 mm[Hg] DIANA CEJA [facility] 06-27-2023 10:29-0500 Blood Pressure Location DIANA CEJA [facility] 06-27-2023 10:29-0500 Body temperature 97.88 [degF] DIANA CEJA [facility] 06-27-2023 10:29-0500 Diastolic blood pressure 64 mm[Hg] DIANA CEJA [facility] 06-27-2023 10:29-0500 Heart rate 77 /min DIANA CEJA [facility] 06-27-2023 10:29-0500 Respiratory rate 24 /min DIANA CEJA [facility] 06-27-2023 10:29-0500 SaO2% (BldA) [Mass fraction] 98 % DIANA CEJA [facility] 06-27-2023 10:29-0500 Systolic blood pressure 116 mm[Hg] DIANA CEJA [facility] 06-26-2023 20:47-0500 Diastolic blood pressure 104 mm[Hg] Everardo Dilma [facility] 06-26-2023 20:47-0500 Heart rate 98 /min Everardo Dilma [facility] 06-26-2023 20:47-0500 Mean blood pressure 125 mm[Hg] Everardo Dilma [facility] 06-26-2023 20:47-0500 Respiratory rate 18 /min Everardo Dilma [facility] 06-26-2023 20:47-0500 SaO2% (BldA) [Mass fraction] 97 % Everardo Dilma [facility] 06-26-2023 20:47-0500 Systolic blood pressure 166 mm[Hg] Everardo Dilma [facility] 06-26-2023 20:25-0500 Diastolic blood pressure 119 mm[Hg] Everardo Dilma [facility] 06-26-2023 20:25-0500 Heart rate 92 /min Everardo Dilma [facility] 06-26-2023 20:25-0500 Hourly Rounding Everardo Dilma [facility] 06-26-2023 20:25-0500 Mean blood pressure 139 mm[Hg] Everardo Dilma [facility] 06-26-2023 20:25-0500 Respiratory rate 21 /min Everardo Dilma [facility] 06-26-2023 20:25-0500 SaO2% (BldA) [Mass fraction] 97 % Everardo Dilma [facility] 06-26-2023 20:25-0500 Systolic blood pressure 180 mm[Hg] Everardo Dilma [facility] 06-26-2023 20:17-0500 Diastolic blood pressure 119 mm[Hg] Everardo Dilma [facility] 06-26-2023 20:17-0500 Systolic blood pressure 180 mm[Hg] Everardo Dilma [facility] 06-26-2023 19:25-0500 Heart rate 86 /min Everardo Dilma [facility] 06-26-2023 19:25-0500 Hourly Rounding Everardo Htache [facility] 06-26-2023 19:25-0500 Mean blood pressure 151 mm[Hg] Everardo Dilma [facility] 06-26-2023 19:25-0500 Promise to Return Everardo Dilma [facility] 06-26-2023 19:25-0500 Respiratory rate 17 /min Everardo Perera [facility] 06-26-2023 19:25-0500 SaO2% (BldA) [Mass fraction] 98 % Everardo Perera [facility] 06-26-2023 18:37-0500 Body temperature 98.24 [degF] Everardo Perera [facility] 06-26-2023 18:37-0500 Heart rate 99 /min Everardo Perera [facility] 06-26-2023 18:37-0500 Respiratory rate 16 /min Everardo Perera [facility] 03-05-2023 15:25-0400 Diastolic blood pressure 96 mm[Hg] Morena Soham [facility] 03-05-2023 15:25-0400 Mean blood pressure 111 mm[Hg] Morena Soham [facility] 03-05-2023 15:25-0400 Systolic blood pressure 140 mm[Hg] Morena Soham [facility] 03-05-2023 15:09-0400 Diastolic blood pressure 116 mm[Hg] Morena Soham [facility] 03-05-2023 15:09-0400 Mean blood pressure 127 mm[Hg] Morena Soham [facility] 03-05-2023 15:09-0400 Systolic blood pressure 149 mm[Hg] Morena Soham [facility] 03-05-2023 15:06-0400 Blood Pressure Location Morena Soham [facility] 03-05-2023 15:06-0400 Body temperature 97.52 [degF] Morena Rousseau [facility] 03-05-2023 15:06-0400 Diastolic blood pressure 103 mm[Hg] Morena Hinesmetz [facility] 03-05-2023 15:06-0400 Heart rate 73 /min Morena Hinesmetz [facility] 03-05-2023 15:06-0400 Systolic blood pressure 142 mm[Hg] Morena Hinesmetz [facility] 02-05-2023 13:54-0400 Blood Pressure Location Parker SALAM [facility] 02-05-2023 13:54-0400 Diastolic blood pressure 114 mm[Hg] Parker SALAM [facility] 02-05-2023 13:54-0400 Heart rate 64 /min Parker SALAM [facility] 02-05-2023 13:54-0400 Respiratory rate 21 /min Parker SALAM [facility] 02-05-2023 13:54-0400 SaO2% (BldA) [Mass fraction] 100 % Parker SALAM [facility] 02-05-2023 13:54-0400 Systolic blood pressure 155 mm[Hg] Parker SALAM [facility] 02-05-2023 13:44-0400 Blood Pressure Location Parker SALAM [facility] 02-05-2023 13:44-0400 Diastolic blood pressure 94 mm[Hg] Parker SALAM [facility] 02-05-2023 13:44-0400 Heart rate 62 /min Parker SALAM [facility] 02-05-2023 13:44-0400 Respiratory rate 19 /min Parker SALAM [facility] 02-05-2023 13:44-0400 SaO2% (BldA) [Mass fraction] 99 % Parker SALAM [facility] 02-05-2023 13:44-0400 Systolic blood pressure 149 mm[Hg] Parker SALAM [facility] 02-05-2023 13:39-0400 Blood Pressure Location Parker SALAM [facility] 02-05-2023 13:39-0400 Diastolic blood pressure 94 mm[Hg] Parker SALAM [facility] 02-05-2023 13:39-0400 Heart rate 64 /min Parker SALAM [facility] 02-05-2023 13:39-0400 Respiratory rate 12 /min Parker SALAM [facility] 02-05-2023 13:39-0400 SaO2% (BldA) [Mass fraction] 99 % Parker SALAM [facility] 02-05-2023 13:39-0400 Systolic blood pressure 138 mm[Hg] Parker SALAM [facility] 02-05-2023 13:29-0400 Body temperature 97.16 [degF] Parker SALAM [facility] 02-05-2023 13:25-0400 Respiratory rate 18 /min Parker SALAM [facility] 02-05-2023 13:20-0400 Respiratory rate 18 /min Parker SALAM [facility] 02-05-2023 13:15-0400 Respiratory rate 16 /min Pakrer SALAM [facility] 02-05-2023 12:18-0400 Body temperature 97.88 [degF] Parker SALAM [facility] 12-25-2022 10:32-0400 Body height 167.6 cm Marko Torreuh PA-C Work Phone: [facility] 12-25-2022 10:32-0400 Body weight 106.05 kg Marko Bandsuh PA-C Work Phone: [facility] 12-25-2022 10:32-0400 Diastolic blood pressure 78 mm[Hg] Marko Bandsuh PA-C Work Phone: [facility] 12-25-2022 10:32-0400 Heart rate 60 /min Marko Bandsuh PA-C Work Phone: [facility] 12-25-2022 10:32-0400 Systolic blood pressure 112 mm[Hg] Marko Bandsuh PA-C Work Phone: [facility] 12-18-2022 09:27-0400 Blood Pressure Location Parker SALAM [facility] 12-18-2022 09:27-0400 Diastolic blood pressure 85 mm[Hg] Parker SALAM [facility] 12-18-2022 09:27-0400 Heart rate 66 /min Parker SALAM [facility] 12-18-2022 09:27-0400 Respiratory rate 16 /min Parker SALAM [facility] 12-18-2022 09:27-0400 SaO2% (BldA) [Mass fraction] 96 % Parker SALAM [facility] 12-18-2022 09:27-0400 Systolic blood pressure 121 mm[Hg] Parker SALAM [facility] 10-25-2022 14:31-0400 Blood Pressure Location ANA SIDELL [facility] 10-25-2022 14:31-0400 Body temperature 98.06 [degF] ANA SIDELL [facility] 10-25-2022 14:31-0400 Diastolic blood pressure 82 mm[Hg] ANA SIDELL [facility] 10-25-2022 14:31-0400 Heart rate 81 /min ANA SIDELL [facility] 10-25-2022 14:31-0400 SaO2% (BldA) [Mass fraction] 98 % ANA SIDELL [facility] 10-25-2022 14:31-0400 Systolic blood pressure 144 mm[Hg] ANA SIDELL [facility] 08-08-2022 15:51-0500 Diastolic blood pressure 97 mm[Hg] Rita Stanislaw [facility] 08-08-2022 15:51-0500 Mean blood pressure 111 mm[Hg] Mohamed Stanislaw [facility] 08-08-2022 15:51-0500 Systolic blood pressure 139 mm[Hg] Mohamed Stanislaw [facility] 08-08-2022 15:39-0500 Blood Pressure Location Mohamed Stanislaw [facility] 08-08-2022 15:39-0500 Diastolic blood pressure 94 mm[Hg] Mohamed Stanislaw [facility] 08-08-2022 15:39-0500 Heart rate 72 /min Rita Dover [facility] 08-08-2022 15:39-0500 SaO2% (BldA) [Mass fraction] 98 % Rita Dover [facility] 08-08-2022 15:39-0500 Systolic blood pressure 137 mm[Hg] Rita Dover [facility] 05-16-2022 14:27-0500 Blood Pressure Location Rita Dover [facility] 05-16-2022 14:27-0500 Diastolic blood pressure 86 mm[Hg] Rita Dover [facility] 05-16-2022 14:27-0500 Heart rate 71 /min Rita Dover [facility] 05-16-2022 14:27-0500 SaO2% (BldA) [Mass fraction] 98 % Rita Dover [facility] 05-16-2022 14:27-0500 Systolic blood pressure 120 mm[Hg] Rita Dover [facility] 11-06-2021 13:52-0400 Body temperature 98.42 [degF] [facility] 11-06-2021 13:52-0400 Diastolic blood pressure 90 mm[Hg] [facility] 11-06-2021 13:52-0400 Heart rate 59 /min [facility] 11-06-2021 13:52-0400 SaO2% (BldA) [Mass fraction] 96 % [facility] 11-06-2021 13:52-0400 Systolic blood pressure 120 mm[Hg] Levon Webber [facility] Encounters Encounter Date Encounter Type Care Provider Facility Start: 07-18-2023 End: 07-18-2023 Patient encounter procedure DIANA CEJA [facility] Start: 06-27-2023 End: 06-28-2023 ambulatory LUNCHROOM MOTHER-C DIANA CEJA Facility:[facility] Start: 06-27-2023 End: 06-27-2023 Patient encounter procedure DIANA CEJA [facility] [place] Start: 06-26-2023 End: 06-26-2023 Emergency department patient visit Everardo Perera Facility:[facility] Start: 06-26-2023 End: 06-26-2023 Emergency department patient visit Everardo Perera [facility] Start: 06-26-2023 End: 06-27-2023 ambulatory SELF REFERRAL Facility:[facility] Start: 06-26-2023 End: 06-26-2023 Patient encounter procedure Everardo Davis [facility] Start: 06-05-2023 End: 06-06-2023 ambulatory Morena Rousseau [facility] Start: 06-05-2023 End: 06-05-2023 Patient encounter procedure Morena A Soham [facility] Start: 03-05-2023 End: 03-06-2023 ambulatory Morena A Soham [facility] Start: 03-05-2023 End: 03-05-2023 Patient encounter procedure Morena A Soham [facility] Start: 02-05-2023 End: 02-06-2023 ambulatory Parker [facility] Facility:[facility] Start: 02-05-2023 End: 02-05-2023 Patient encounter procedure Keith MARTIN [facility] Start: 12-25-2022 End: 12-25-2022 ambulatory MARKO TORRE Facility:[facility] Start: 12-25-2022 End: 12-25-2022 Patient encounter procedure Marko Torre PA-C Work Phone: Orthopedics Comment on above: S/P revision of tota l knee, left (Primary Dx); Primary osteoarthritis of right knee Start: 12-18-2022 End: 12-19-2022 ambulatory Parker [facility] Start: 12-18-2022 End: 12-18-2022 Patient encounter procedure [facility] Start: 12-16-2022 End: 12-17-2022 ambulatory Sri PUGA Facility:[facility] Start: 12-16-2022 End: 12-17-2022 ambulatory Sri PUGA Facility:[facility] Start: 11-22-2022 End: 11-23-2022 ambulatory ANA CHÁVEZ Facility:[facility] Start: 11-03-2022 End: 11-04-2022 ambulatory Kimmy Scott Facility:[facility] Start: 10-28-2022 ambulatory Keith CHUNG Facility: [facility] Start: 10-25-2022 End: 10-26-2022 ambulatory ANA CHÁVEZ Facility:[facility] Start: 10-25-2022 End: 10-25-2022 Patient encounter procedure ANA CHÁVEZ [facility] [place] Start: 09-02-2022 End: 09-02-2022 ambulatory Rita Dover Facility:[facility] Start: 09-02-2022 End: 09-02-2022 Admission to same day surgery center Rita Dover [facility] Start: 08-08-2022 End: 08-09-2022 ambulatory Rita Dover Facility:[facility] Start: 08-08-2022 End: 08-08-2022 Patient encounter procedure Riat Dover [facility] Start: 05-29-2022 End: 05-29-2022 Patient encounter procedure Jerel Banks [facility] Start: 05-20-2022 End: 05-20-2022 Patient encounter procedure Jerel Banks [facility] Start: 05-16-2022 End: 05-16-2022 Patient encounter procedure Rita Dover [facility] Start: 02-22-2022 End: 02-22-2022 Orders Only Augustus Pereira MD Work Phone: Orthopaedics Comment on above: S/P revision of tota l knee, left (Primary Dx) Start: 11-14-2021 End: 11-14-2021 Patient encounter procedure Levon Webber [facility] Start: 11-06-2021 End: 11-06-2021 Patient encounter procedure Levon Webber [facility] Start: 11-06-2021 End: 11-06-2021 [facility] Procedures Date Procedure Procedure [...] above: Performed By: #### [id number] ####Mele Maldonado [id number] [address] [phone] Start: 10-05-2020 Injection of sclerosing agent Levon [...] BP CONTROLLED (<130/80) BP CONTROLLE D (<130/80) [facility] Start: 12-22-2023 DIABETES SCREEN DIABETES SCREEN [facility] Start: 07-07-2022 DEPRESSION ASSESSMENT DEPRESSION ASS ESSMENT [facility] Start: 03-07-2022 Influenza vaccination INFLUENZA (#1) [facility] Start: 12-12-2021 COVID-19 VACCINE (4 - Booster for Pfizer series) COVID-19 VACCINE (4 - Booster for Pfizer series) [facility] Start: 12-12-2021 SHINGRIX VACCINE (1 of 2) SHINGRIX V ACCINE (1 of 2) [facility] Start: 09-10-2021 COVID-19 VACCINE (4 - Booster for Pfizer series) COVID-19 VACCINE (4 - Booster for Pfizer series) [facility] Start: 12-12-2016 COLOGUARD (FIT-DNA) COLOGUARD (FIT-D NA) [facility] Start: 12-12-2016 Colonoscopy COLONOSCOPY [facility] Start: 12-12-2016 COLORECTAL CANCER SCREENING COLORECTAL CANCER SCREENING [facility] Start: 12-12-[address] COLONOGRAPHY [facility] Start: 12-12-2016 FECAL OCCULT BLOOD FECAL OCCULT BLOO D [facility] Start: 12-12-2016 LIPID SCREEN LIPID SCREEN [facility] Start: 12-12-2016 SIGMOIDOSCOPY SIGMOIDOSCOPY [facility] Start: 2011 Mammography MAMMOGRAM [facility] Start: 12-12-2001 HPV TESTING HPV TESTING [facility] Start: 12-12-1992 PAP TESTING PAP TESTING [facility] Start: 12-12-1990 Urine microalbumin profile DTAP,TDAP ,TD (1 - Tdap) [facility] Start: 12-12-1989 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 VISIT ANNUAL PCP TEAM CHRONIC DISEASE VISIT [facility] Start: 12-12-1989 BP CONTROLLED (<130/80) BP CONTROLLE D (<130/80) [facility] Start: 12-12-1989 HEPATITIS C SCREENING HEPATITIS C SC REENING [facility] Start: 12-12-1989 HIV SCREENING HIV SCREENING [facility] Start: 12-12-1989 SPIROMETRY SPIROMETRY [facility] Start: 1983 Adult depression scr eening assessment DEPRESSION SCREENING [facility] Start: 12-12-1977 PNEUMOCOCCAL (1 - PCV) PNEUMOCOCCAL (1 - PCV) [facility] Start: 1971 HEPATITIS B (1 of 3 - 3-dose series) HEPATITIS B (1 of 3 - 3-dose series) [facility] Immunizations Immunization Date Immunization Notes Care Provider Fa cility 03-11-2023 influenza virus vaccine, unspecified formulation Morena Rousseau [facility] 03-12-2022 influenza virus vaccine, unspecified formulation Keith CHUNG [facility] 07-16-2021 SARS-CoV-2 mRNA (sxcsearoavy-dqle-bgnpb se) vaccine Keith CHUNG [facility] 04-03-2021 influenza virus vaccine, unspecified formulation [facility] 09-08-2020 SARS-CoV-2 (COVID-19 ) mRNA BNT-162b2 vax [facility] 08-18-2020 SARS-CoV-2 (COVID-19 ) mRNA BNT-162b2 vax [facility] 03-07-2019 influenza virus vaccine, unspecified formulation [facility] Payers Date Payer Category Payer Unknown [id number] 2011 Unknown [id number] 2011 Unknown [id number] 1971 Unknown [id number] 2.16.8 [id number]. 1971 Unknown [id number] 2.16.8 40.1.022573.3.579.2. 1971 Unknown [id number] 2.16.8 40.1.698103.3.579.2.7 1971 Unknown [id number] 2.16.8 40.1.189493.3.579.2.727 1971 Unknown [id number] 2.16.8 40.1.151238.3.579.2. 1971 Unknown [id number] 2.16.8 40.1.077258.3.579.2. 1971 Unknown [id number] 2.16.8 40.1.575843.3.579.2.7 1971 Unknown [id number] 2.16.8 40.1.434186.3.579.2. 1971 Unknown [id number] 2.16.8 40.1.033104.3.579.2.727 1971 Unknown [id number] 2.16.8 40.1.489575.3.579.2.727 1971 Unknown [id number] 2.16.8 40.1.266862.3.579.2.727 1971 Unknown [id number] 2.16.8 40.1.085639.3.579.2.727 1971 Unknown [id number] 2.16.8 40.1.595708.3.579.2.727 1971 Unknown [id number] 2.16.8 [id number] Social History Date Type Detail Facility Start: 11-06-2021 End: 06-27-2023 Tobacco smoking status Never smoked tobacco (finding) [facility] Comment on above: Denies Tobacco smoking status Never [facility] Comment on above: Denies Sex Assigned At Female [facility] Start: 11-19-2011 Tobacco use and exposure Smokeless tobacco non-user [facility] Start: 12-20-2020 End: 12-25-2022 Alcohol intake Current drinker of alcohol (finding) [facility] Start: 11-30-2020 History SDOH Alcohol Comment social-weekends [facility] Start: 1971 Sex Assigned At Not on file [facility] Start: 02-12-2022 End: 02-22-2022 Exposure to SARS-CoV-2 (event) Not sure [facility] Medical Equipment Procedure Code Equipment Code Equipment Origin al Text Equipment Identifier Dates Fidencio Bn Smplx Hv Gentamicin Fd - [id number] Start: 11-18-2016 Cement Simplex P Tobramycin Bone Full Dose Radiopaque Preblend Sterile - [id number] Start: 12-20-2020 Surface 6-9 Cd Vivacit-E 11mm Articular Knee - [id number] Start: 11-18-2016 Extension Triath luisana 25mm Stem Total Stabilize Knee Femur - [id number] Start: 12-20-2020 Baseplate Person a 5d D Tivanium Tibial Cemented Stem Knee Left - [id number] Start: 11-18-2016 Restrictor Univmacario rsal Cement Disposable Radar 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 06-26-2023 Functional Status N/A [facility] 03-05-2023 Functional Status N/A [facility] 02-05-2023 Functional Status N/A [facility] 12-18-2022 Functional Status N/A [facility] 10-25-2022 Functional Status N/A [facility] 08-08-2022 Functional Status No [facility] 05-16-2022 Functional Status No [facility] Clinical Notes 11-18-2016 to 06-27-2023 Note [...] are safe for you. General instructions Take eetc-xii-ozuieia and prescription medicines only as told by [...] provider. Document Revised: 10/11/2020 Document Reviewed: 12/21/2019 [employer] Patient Education 2022 [employer]. 06/27/2023 12:02:19 Cough, Adult Cough, Adult Coughing [...] Follow these instructions at home: Medicines Take efnc-dxv-polqydp and prescription medicines only as told by [...] of a condition that needs treatment. Take ewbt-pmj-qsxitct and prescription medicines only as told by [...] provider. Document Revised: 07/12/2019 Document Reviewed: 07/12/2019 [employer] Patient Education 2022 [employer]. [facility] [place] 06-26-2023 Hospital Discharge instructions Patient Education 06/26/2023 [...] more information National Heart, Lung, and Blood [place]: www.nhlbi.nih.gov [place] [employer]: www.heart.org Contact a health care [...] provider. Document Revised: 03/07/2022 Document Reviewed: 03/07/2022 [employer] Patient Education 2022 [employer]. 06/26/2023 20:53:28 Migraine Headache Migraine Headache A [...] Follow these instructions at home: Medicines Take bsbn-gex-tusqpub and prescription medicines only as told by your health care provider. Ask your health care provider if the medicine prescribed to you: ?Requires you to avoid driving or using heavy machinery. ?Can cause constipation. You may need to take these actions to prevent or treat constipation: ?Drink enough fluid to keep your urine pale yellow. ?Take gymv-ipk-yhbcewx or prescription medicines. ?Eat foods that are [...] provider. Document Revised: 10/15/2019 Document Reviewed: 08/05/2019 [employer] Patient Education 2022 [employer]. Follow Up Care 06/26/2023 18:32:26 With:Pb BAUMAN Address: [address] [place] [address] [place] [address] [phone] Business (1) When:06/29/2023 20:47:03 Comments:Follow-up with your primary care provider in 3 to 5 days. If symptoms worsen, do not improve, or new symptoms arise please report back to emergency department for further evaluation. Continue to monitor your blood pressure, and you may start 20 mg of lisinopril daily. [facility] 03-05-2023 Hospital Discharge instructions Patient Education 03/05/2023 [...] overweight. Not getting enough exercise. Smoking. Taking iyvp-uzg-fjxhafz pain medicines, like aspirin and ibuprofen. Having [...] Follow these instructions at home: Medicines Take ahjd-wyu-xhifknt and prescription medicines only as told by your health care provider. If told by your health care provider, take a fiber supplement or probiotic. Constipation prevention Your condition may cause constipation. To prevent or treat constipation, you may need to: Drink enough fluid to keep your urine pale yellow. Take fisn-luo-brrlzfv or prescription medicines. Eat foods that are [...] provider. Document Revised: 01/20/2020 Document Reviewed: 01/20/2020 [employer] Patient Education 2022 [employer]. 03/05/2023 15:03:18 Peptic Ulcer Peptic Ulcer A [...] quitting, ask your health care provider. Take wrnw-fwy-dbjamfs and prescription medicines only as told by your health care provider. ?Do not use tqjb-qki-fpwchmo medicines in place of prescription medicines unless [...] quitting, ask your health care provider. Take prhk-qnc-xfjrzsm and prescription medicines only as told by your health care provider. Do not use uqww-zes-ipqhshg medicines in place of prescription medicines unless your health care provider approves. Limit your alcohol and caffeine intake. Keep all follow-up visits. This is important. This information is not intended to replace advice given to you by your health care provider. Make sure you discuss any questions you have with your health care provider. Document Revised: 02/01/2022 Document Reviewed: 02/01/2022 [employer] Patient Education 2022 [employer]. Follow Up Care 02/19/2023 08:31:55 With:Morena Rousseau CNP Address: When:3 months [facility] 02-06-2023 Note [id number]:127 [facility] 02-05-2023 Hospital Discharge instructions Patient Education 02/05/2023 [...] what activities are safe for you. Take xgzk-dbn-pmuzrqa and prescription medicines only as told by [...] provider. Document Revised: 04/28/2020 Document Reviewed: 11/23/2018 [employer] Patient Education 2022 [employer]. 02/05/2023 13:36:26 Colonoscopy, Care After Surgery Salam [...] unsweetened, w/added ascorbic acid 1 cup 0.5 Bradford 1 cup 0.7 Vegetables Cooked Green beans 1 cup 4.0 Carrots 1/2 cup sliced 2.3 Peas 1 cup 8.8 Potato (baked, with skin) 1 medium potato 3.8 Raw [place] (with peel) 1 cucumber 1.5 Lettuce 1 [...] 8.7 Peanuts 1/2 cup 7.9 Chart from [facility] 2013. SEEK IMMEDIATE MEDICAL CARE IF: You [...] Available at http://www.nal.usda.gov/fnic/food comp/search/. Information adapted from: [facility] Patient Information 2009 [employer]. Ruffalo[employer]ODY 2012 http://www.Betterific/contents/ tumjizjiqvon-qzeeroa-cubclg-the-b asics 02/05/2023 13:36:13 Esophageal Dilatation Esophageal Dilatation [...] including vitamins, herbs, eye drops, creams, and wtiw-thb-ehkmmoy medicines. Any problems you or family members [...] provider tells you to take them. ?Taking shyz-awy-gzirgcg medicines, vitamins, herbs, and supplements. Follow instructions [...] home. Follow these instructions at home: Take izwc-hrb-vvfnoop and prescription medicines only as told by [...] provider. Document Revised: 11/08/2020 Document Reviewed: 11/08/2020 [employer] Patient Education 2022 [employer]. Follow Up Care 12/18/2022 09:52:48 With:OMAR CROCKER, LAINEY Parker, [facility] Address: [address] [place] [address]. [address] [place] [address] When: Unknown Comments:Call for any problems. Office will call to schedule follow up appointment [facility] 02-05-2023 Evaluation + Plan note Extrac mariposa from: Title:ANES Post General Author:Frank Adams DO. Date:02/05/23 Plan Transfer/Discharge: Patient exhibiting no signs of N/V. Hydration status is adequate. Extracted from: Title:Bryan Basic PRE Author:Ronny Adams DO. Date:02/05/23 Plan [place] Society of Anesthesiologists (ASA) physical status classification: Class II. Anesthetic Preoperative Plan: Anesthesia General. [facility]06-21-2023 NoteHNO ID: [id number] Author: Marko Cordova PA-C Service: ? Author Type: Physician School Year Nanny Type: Progress Notes Filed: 12/25/2022 12:05 PM [...] knee joint Informed Consent Consent Obtained: Verbal [place] Protocol A moment to CARE was completed. [...] Greater (Aleve) Physical The (more content not included)...[facility]06-21-2023 NoteHNO ID: [id number] Author: RT Lizbeth(R) Service: ? Author Type: [...] BY: RT Lizbeth(R) December 25, 2022 10:24 [facility]06-21-2023 History of Present illness Narrative* Marko Cordova [...] knee joint Informed Consent Consent Obtained: Verbal [place] Protocol A moment to CARE was completed. [...] 2022 TIME: 10:36 AM [facility] Note [id number]:127[facility] 09-02-2022 Hospital Discharge instructions Patient Education 09/02/2022 [...] concerns, call to speak with your doctor. [facility]: [phone]. Follow Up Care 08/13/2022 15:47:23 With:Rita Dover Address: [address] [place], [place] [id number] Business (1) When:09/30/2022 10:30:00 Comments:Keep scheduled appointment [facility]08-19-2022 NoteHNO ID: [id number] Author: Augustus Pereira MD Service: ? Author Type: Physician Type: Progress Notes Filed: 02/22/2022 2:48 PM Note Text: This document has been created with the use of voice recognition technology. It may contain inaccuracies: misspellings, inaccurate syntax or word sense that escaped review. CHIEF COMPLAINT: Jessenia Wnig is a 51 year old female who [...] Recommend conservative treatment with activity modification, ice, jtjc-bmy-ldzclps NSAID. If this becomes more significant she will return for follow-up Follow-up as symptoms dictate Augustus Pereira [facility]08-19-2022 NoteHNO ID: [id number] Author: RT Brynn(R) Service: ? Author Type: [...] Margi Moore, RT(R) February 22, 2022 2:30 [facility]05-03-2022 Evaluation + Plan note Future Scheduled Tests Laboratory* CBC w/ Indices 11/06/21 [facility] 05-03-2022 Hospital Discharge instructions Follow Up Care 11/06/2021 11:33:21 With:Akbar GARCES, DEJUAN Philip, PED Address: [address] [place] [phone] When:1 month only if needed [facility] 06-17-2021 NoteHNO ID: [id number] Author: Stanley Bunch PA-C Service: Orthopaedic Surgery Author Type: Physician School Year Nanny Type: Progress Notes Filed: 12/21/2020 9:30 AM [...] total knee replacement, 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[facility]) [T84.018A, Z96.659]. Patient will require an opioid [...] 1707 -- 12/21/20 0000 graduated compression stockings ([place]) 12/20/20 1715 graduated compression stockings ([place]) 12/20/20 1715 activity - mobilize patient ([place]) VTE Prophylaxis: VTE prophylaxis appropriate POST OPERATIVE COMPLICATIONS: Complicated by: uneventful/none SIGNATURE: Stanley Bunch PA-C PATIENT NAME: Jessenia Wing DATE: 12/21/2020 TIME: 9:30 AM PAGER/CONTACT #: [phone] NoteHNO ID: [id number] Author: Zeke Prajapati II, DO Service: Anesthesiology [...] December 20, 2020 TIME: 12:30 PM CSN: [id number] NoteHNO ID: [id number] Author: Zeke Prajapati II, DO Service: Anesthesiology [...] December 20, 2020 TIME: 12:02 PM CSN: [id number] Evaluation + Plan note Future Appointments Appointment Date:07/18/2023 08:00:00 AM Scheduled Provider: Location:.[facility] Appointment Type:CV Echo (FT) Appointment Date:08/05/2023 01:00:00 PM Scheduled Provider:Eyad ARORA MD Location[facility] Appointment Type:Cardiology New Patient (FT) Future Scheduled Tests Radiology* Echo w/ Saline Bubbles 07/18/23 [facility] 05-15-2017 History of Past illness Narrative* Problem Noted Date Resolved Date S/P left unicompartmental knee replacement 11/1803/18/2017 documented as of this encounter (statuses as of 02/22/2022) [facility]05-15-2017 History of Past illness Narrative* Problem Noted Date Resolved Date S/P left unicompartmental knee replacement 11/1803/18/2017 documented as of this encounter (statuses as of 12/25/2022) [facility] Future Appointments Appointment Date:05/29/2022 09:45:00 AM Scheduled Provider:Jerel Banks DPM [facility] Appointment Type:WC Follow Up Visit (FT) Future Scheduled Tests Radiology* US LE Venous Duplex Insufficiency Bilat 05[facility]17/22 [facility] Future Appointments Appointment Date:06/10/2022 03:00:00 PM Scheduled Provider: [facility] Type:US Duplex Procedures (FT) Future Scheduled Tests Radiology* US LE Venous Duplex Insufficiency Bilat 06/10/22 [facility] Future Appointments Appointment Date:09/30/2022 10:30:00 AM Scheduled Provider:Rita Dover MD Location[facility] Appointment Type:Vascular Follow Up (FT) [facility] Future Appointments Appointment Date:10/31/2022 03:30:00 PM Scheduled Provider:Rita Dover MD Location[facility] Appointment Type:Vascular Follow Up (FT) Appointment Date:11/22/2022 04:20:00 PM Scheduled Provider:ANA CHÁVEZ CNP Location:[facility] Appointment Type:[facility] Evaluation + Plan note Future Appointments Appointment Date:02/05/2023 12:50:00 PM Scheduled Provider: Location:[facility] Appointment Type:Surgery FT [facility] Evaluation + Plan note Future Appointments Appointment Date:06/05/2023 03:20:00 PM Scheduled Provider:Morena Rousseau CNP Location:[facility] Appointment Type:BADH Follow Up [facility] Evaluation + Plan note Future Appointments Appointment Date:08/05/2023 01:00:00 PM Scheduled Provider:Eyad ARORA MD [facility] Type:[facility] New Patient (FT) [facility] Diagnosis S/P revision of total knee, left- Primary [facility] Diagnosis S/P revision of total knee, left- Primary Primary osteoarthritis of right knee Primary localized osteoarthrosis, lower leg [facility] Narrative No data available for this section [facility] Hospital Discharge instructions No data available for this section [facility] No data available for this section [facility] for referral (narrative)* Diagnostic Procedure Only (Routine) - Closed Specialty Diagnoses / Procedures Referred By Mandeep sellers Referred To Contact XR IMAGING Diagnoses S/P revision of total knee, left Procedures XR KNEE POST OP 3V AP/LAT/MERCHANT LEFT RADIOLOGIC EXAMINATION KNEE 3 VIEWS Augustus Pereira MD [address] [place] [address] Xr Imaging Referral ID Status Reason Start Date Expiration Date V isits Requested Visits Authorized [id number] Closed Auto-Generate d Referral 02/22/2022 03/24/2023 1 1 [facility] Summary Purpose Family History No Family [...] Marko Cordova PA-C [address] [place] [address] [facility] [place] [address] [id number] Referral ID Status Reason Start Date Expiration Date Visits Requested Visits Authorized [id number] Pending Review Auto-Generat ed Referral 12/25/2022 12/25/2023 [...] section and content) DATE CREATED AUTHOR 01/05/2021 [facility] DATE CREATED AUTHOR AUTHOR'S ORGANIZ ATION 12/26/2022 [facility] DATE CREATED AUTHOR AUTHOR'S ORGANIZ ATION 06/28/2023 [facility] Source Comments (unrecognize d section and content) In the event this informatio n is protected by the Federal Confidentiality of Alcohol and Drug Abuse Patient Records regulations: The Federal rules restrict any use of the information to criminally investigate or prosecute any alcohol or drug abuse patient.[facility] the event this information is protected by the Federal Confidentiality of Alcohol and Drug Abuse Patient Records regulations: The Federal rules restrict any use of the information to criminally investigate or prosecute any alcohol or drug abuse patient.[facility] Patient Care team informatio n (unrecognized section and content) Personnel Name: Pb BAUMAN DO Address: Address: [address] [place], [place] [address] Personnel Name: Pb BAUMAN DO Address: Address: [address] [place], [place] [address] Personnel Name: Pb BAUMAN DO Address: Address: [address] [place] [id number] Personnel Name: Pb BAUMAN DO Address: Address: [address] [place] [id number] Personnel Name: Pb BAUMAN DO Address: Address: [address] [place] [id number] Personnel Name: Pb BAUMAN DO Address: Address: [address] [place] [id number] Personnel Name: Pb BAUMAN DO Address: Address: [address] [place] [id number] Personnel Name: Pb BAUMAN DO Address: Address: [address] [place] [address]- [place] Personnel Name: Pb BAUMAN DO Address: Address: [address] [place] [address]- [place] Personnel Name: Pb BAUMAN DO Address: Address: [address] [place] [address]- [place] Personnel Name: Pb BAUMAN DO Address: Address: [address] [place] [address]- [place] Personnel Name: Pb BAUMAN DO Address: Address: [address] [place] [address]- [place] Personnel Name: DIANA MOYER Address: Address: [address] [place] [address]- Personnel Name: DIANA MOYER Address: Address: [address] [facility] [address] [place] [id number]- Reason for Visit (unrecogniz ed section and [...] BE BASED ON THE PRIMARY CLINICAL RECORDS. [facility] [employer] [facility]. provides no warranty or guarantee of the accuracy or completeness of information in this document.
--- NOTE | 2023-09-18 07:29 | VEIN_ITS ---
The [address] [address] Patient Name: LOREN WING MRN: [id number] date: 1970 Sex: F Assigned Patient Location: Current Patient Location: Accession/Order Number: [id number] Exam Date: 09/18/2023 07:31 Report Date: 09/18/2023 08:27 At the request of: PREMA HAWKINS Procedure: VC Endovenous Ablation 1VeinRT EXAMINATION: VC Endovenous Ablation 1VeinRT HISTORY: I83.813 Bilateral painful varicose veins The risks and benefits of the procedure had been previously discussed, and were rediscussed at length. Informed written consent was obtained. Matteo Holloway RN and Rossy Hope RDMS, RVT assisted. Time out procedure was performed. The right lower extremity was prepared and draped in the usual sterile fashion to allow knee flexion in the sterile field. Duplex ultrasound probe was draped in a sterile cover, sterile transmission gel was used. Venous mapping was performed with the areas of dilation and large tributaries marked. The total length was 16 cm from the entry mid-upper thigh to 3 cm below the Saphenofemoral junction. The diameter of the right anterior accessory saphenous vein ranged from 5.5 mm. A 30 gauge needle and 1% buffered lidocaine was used to anesthetize the entry site. A 4 mm incision was made with a scalpel and the saphenous vein was entered percutaneously under direct ultrasound guidance with a micropuncture set, a single stick was successful in gaining access. A micro-guide wire was inserted and the needle removed. A micro-set including a dilator was inserted over the microwire and the needle and dilator were removed. A guide wire was inserted through the micro-set and guided through the saphenous vein to the saphenofemoral junction. The dilator was removed and an introducer sheath was inserted over the wire until the end of the sheath entered the saphenofemoral junction. The dilator and wire were removed and the 600 micron fiber was introduced and placed and positioned so that it extended beyond the sheath and was 3 cm distal to the saphenofemoral or saphenopopliteal junction. Final position of the fiber was determined by ultrasound guidance and duplex imaging. Tumescent anesthetic was delivered by ultrasound guidance. 100 cc of fluid was delivered along the entire course of the saphenous vein. The solution consisted of 1000 cc of normal saline with 40 mL of 1% lidocaine and 20 mL of sodium bicarbonate. A final positioning check was made. The energy source was turned on by means of the foot pedal and the fiber and sheath were withdrawn. The total number of Joules delivered was 827. The laser was active for 103 seconds under continuous pulse, average laser use of 8 J. Laser start time 8:07 AM, 09/18/2023. Laser stop time 8:09 AM, 09/18/2023. A duplex ultrasound revealed compressibility and flow at the saphenofemoral junction immediately after the procedure. Hemostasis at the access site was achieved. The skin incision of the saphenous vein was closed with a 4 x 4. A compression stocking was applied. Postop instructions were given. A follow up appointment was recommended and scheduled. The patient tolerated the procedure well. Electronically authenticated by: GABY BRIONES Date: 09/18/2023 08:27
[2023-09-18] MEDS: LIDOCAINE HCL 1% 100 MG/10 ML MDV INJ (07:59)
[2023-09-18] MEDS: 0.9 % SODIUM CHLORIDE 500 ML, LIDOCAINE HCL 20 ML, SODIUM BICARBONATE 10 MEQ INJ (08:00)
== END 2023-09-18 07:26 | disposition home or self-care (01) ==
LOC: VC 07:26
PROVIDERS: PCP Radiology Diagnostic Radiology; Visit Provider Radiology Diagnostic Radiology
DX: I83.813 Varicose veins of bilateral lower extremities with pain (principal)
CPT/HCPCS: 36478

== ENCOUNTER 2023-09-22 07:27 | Outpatient (OUT) | payer OTHER, BC, SELFPAY ==
--- NOTE | 2023-09-22 07:29 | VEIN_ITS ---
Patient Name: LOREN WING MR#: [id number] : 1970 Exam Date: 09/22/2023 Ordering Doctor: DR WILVER CANO M.D. RADIOLOGY REPORT PROCEDURE: VC EXT VENOUS RT LMTD COMPARISON: VC EXT VENOUS RT LMTD, 09/08/2023. VC EXT VENOUS RT LMTD, 08/11/2023. INDICATIONS: Phlebitis of superficial veins of right lower extremity I80.01 TECHNIQUE: Lower extremity berry scale and Duplex Doppler evaluation of the deep venous system from the inguinal ligament through the calf veins. FINDINGS: REGION: Right lower extremity. THROMBI: Negative for DVT. Heat induced thrombus in right AASV 1.8 cm from SFJ and extends to mid thigh. COMPRESSIBILITY: Non-compressible segments corresponding to thrombus FLOW: Areas of no flow corresponding to thrombus CONCLUSION: Post ablation occlusion of the ablated right anterior accessory saphenous vein with heat induced thrombus 1.8 cm from the saphenofemoral junction. Dictated by: Wilver Cano MD on 09/22/2023 at 07:50 Approved by: Wilver Cano MD on 09/22/2023 at 07:51
--- NOTE | 2023-09-22 07:29 | VEIN_ITS ---
Patient Name: LOREN WING MR#: [id number] : 1970 Exam Date: 09/22/2023 Ordering Doctor: DR WILVER CANO M.D. RADIOLOGY REPORT PROCEDURE: [facility] EST LMT[facility] - OFFICE VISIT FOLLOW UP COMPARISON: [facility] EST LMTD, 09/08/2023. [facility] EST LMTD, 08/11/2023. PROGRESS NOTES: The patient reports some mild discomfort of the right thigh following intravenous laser ablation of the right anterior accessory saphenous vein. The patient did require oral analgesics but the patient has her compression stocking. Patient has joint exercise Physical exam demonstrates a 20 x 10 cm area of moderate bruising in the anterior medial right thigh likely related to tumescent injection. No erythema or warmth to suggest cellulitis or thrombophlebitis. The right anterior accessory saphenous vein cannot be definitively palpated. No active ulceration Review of the ultrasound performed the same day demonstrates occlusive thrombus extending throughout the treated right anterior accessory saphenous vein with heat induced thrombus 1.8 cm from the saphenofemoral junction. No deep vein thrombus. The patient expressed a desire to proceed with treatment of incompetent right leg varicose veins with micro foam chemical ablation. VEIN/[facility] EST LMTD IMPRESSION: 1. Successful ablation of the right anterior accessory saphenous vein 2. Persistent right leg incompetent varicose veins. PLAN: Micro foam chemical ablation right leg incompetent varicose veins Nurse notes, history and physical were reviewed and confirmed, see attached forms. The nurse was present throughout the physical exam and consultation Dictated by: Wilver Cano MD on 09/22/2023 at 07:57 Approved by: Wilver Cano MD on 09/22/2023 at 08:00
--- OUTSIDE RECORDS SUMMARY | 2023-09-22 07:36 | XMS_ITS | CCD ---
Author Name Unknown Address [address] [place] [address] Organization [facility] Care Team Providers Care Tabulating Clerk Name Role Phone Pb BAUMAN Primary Care Physician [phone] Unavailable Primary Care Provider Unavailabl e Unavailable [...] ,dust, mold 1 Allergy to substance hayfever [facility] Primary [facility] Comment on above: hayfever (1 source) Seasonal allergy Allergy to substance 3 Itching [facility] (1 source) seasonal ,dust, mold; Translations: [seasonal ,dust, mold] Propensity to adverse reactions (disorder) [facility] Repository (1 source) No Known Medication Allergies; Translations: [No Known Medication Allergies] Propensity to adverse reactions (disorder) [facility] Repository NEGATED: Highlighted row has been ruled out! (1 source) Drug allergy [facility] NEGATED: Highlighted row has been ruled out! (1 source) Drug allergy [facility] NEGATED: Highlighted row has been ruled out! (1 source) Drug allergy [facility] NEGATED: Highlighted row has been ruled out! (1 source) Drug allergy [facility] NEGATED: Highlighted row has been ruled out! (1 source) Drug allergy [facility] NEGATED: Highlighted row has been ruled out! (1 source) Drug allergy [facility] NEGATED: Highlighted row has been ruled out! (1 source) Drug allergy [facility] NEGATED: Highlighted row has been ruled out! (1 source) Drug allergy [facility] NEGATED: Highlighted row has been ruled out! (1 source) Drug allergy [facility] NEGATED: Highlighted row has been ruled out! (1 source) Drug allergy [facility] NEGATED: Highlighted row has been ruled out! (1 source) Drug allergy [facility] Medications Current Medications Medication Drug Class(es) Dates Sig (Normalized) Sig (Original) albuterol HFA 90 mcg/inh MDI (17 sources) Start: 06-27-2023 take 2 puff(s) by inhalation four times daily albuterol HFA 90 mcg/inh MDI 2 puff(s), Inhalation, QID, 1 EA, Refill(s) 2, [facility], 167, cm, 06/27/23 10:33:00 EST, Height/Length Dosing, 111, kg, 06/27/23 10:33:00 EST, Weight Dosing Start Date: 06/27/23 Status: Ordered Start: 05-25-2020 take 2 puff(s) by in halation four times daily albuterol HFA 90 mcg/inh MDI 2 puff(s), Inhalation, QID, 1 EA, Refill(s) 2, [facility] 1986, 167, cm, 05/25/20 16:49:00 EST, [...] 6 tab(s), Refills(s) 0, Pharmacy: [facility] 1985, 167, cm, 06/27/23 10:33:00 EST, Height/Length Dosing, 111, kg, 06/27/23 10:33:00 EST, Weight Dosing Start Date: 06/27/23 Stop Date: 07/02/23 Status: Ordered brompheniramine maleate 0.4 mg/ml / dextromethorphan hydrobromide 2 mg/ml / pseudoephedrine hydrochloride 6 mg/ml oral solution (2 sources) alpha-Adrenergic Agonist, Uncompetitive Q-gsciqg-A-aspart ate Receptor Antagonist, Sigma-1 Agonist Start: 06-27-2023 take 2.5 mL by mouth every six hours Bromfed DM oral syrup 2.5 mL, Oral, q6hr for cold symptoms, 120 mL, Refill(s) 1, [facility], 167, cm, 06/27/23 10:33:00 EST, Height/Length Dosing, 111, kg, 06/27/23 10:33:00 EST, Weight Dosing Start Date: 06/27/23 Status: Ordered hydrALAZINE hydrochloride 10 mg oral tablet (1 source) Arteriolar Vasodilator Start: 07-04-2023 hydrALAZINE 10 mg Tab See Instructions, 1 tab PO PRN BP >140/90, # 30 tab(s), Refills(s) 2, Pharmacy: [facility] 1985, 167, cm, 06/27/23 10:33:00 EST, Height/Length Dosing, 111, kg, 06/27/23 10:33:00 EST, Weight Dosing Start Date: 07/04/23 Status: Ordered hydroCHLOROthiazide 12.5 mg oral capsule (4 sources) Thiazide Diuretic Start: 06-27-2023 take 1 capsule by mouth once daily hydrochlorothiazide 12.5 mg Cap 12.5 mg = 1 cap(s), Oral, Daily, # 30 cap(s), Refills(s) 6, Pharmacy: [facility] 1985, 167, cm, 06/27/23 10:33:00 EST, [...] day(s), # 21 tab(s), Refills(s) 0, Pharmacy: [facility] 1985, 167, cm, 06/27/23 10:33:00 EST, Height/Length Dosing, 111, kg, 06/27/23 10:33:00 EST, Weight Dosing Start Date: 06/27/23 Stop Date: 07/03/23 Status: Ordered omeprazole 40 mg delayed release oral capsule (12 sources) Proton Pump Inhibitor Start: take 1 capsule by mouth once daily omeprazole 40 mg Cap-DR 40 mg = 1 cap(s), Oral, Daily, # 30 cap(s), Refills(s) 1, Pharmacy: [facility] 1985, 167, cm, 02/05/23 12:12:00 EDT, Height/Length Dosing, 106.5, kg, 02/05/23 12:12:00 EDT, Weight Dosing Start Date: 02/05/23 Status: Ordered Start: 01-20-2023 take 1 capsule by mo uth once daily omeprazole 20 mg Cap-DR 20 mg = 1 cap(s), Oral, Daily, # 90 cap(s), Refills(s) 3, Pharmacy: [facility] 1985, 167, cm, 12/18/22 9:30:00 EDT, Height/Length Dosing, 106.5, kg, 12/18/22 9:30:00 EDT, Weight Dosing Start Date: 01/20/23 Status: Ordered Start: 10-25-2022 take 1 capsule by [facility] once daily omeprazole 20 mg Cap-DR 20 mg = 1 cap(s), Oral, Daily, # 30 cap(s), Refills(s) 0, Pharmacy: [facility] 1985, 167, cm, 10/25/22 14:36:00 EDT, Height/Length Dosing, 110.1, kg, 10/25/22 14:36:00 EDT, Weight Dosing Start Date: 10/25/22 Status: Ordered polyethylene glycol 3350 218814 mg / potassium chloride 1480 mg / sodium bicarbonate 5720 mg / sodium chloride 42661 mg powder for oral solution (1 source) Osmotic Laxative Start: 12-18-2022 NuLYTELY Ford oral powder for reconstitution See Instructions, 1 EA, Refill(s) 0, See physician instructions prior to procedure., [facility], 167, cm, 12/18/22 9:30:00 EDT, Height/Length Dosing, 106.5, kg, 12/18/22 9:30:00 EDT, Weight Dosing Start Date: 12/18/22 Status: Ordered pseudoephedrine hydrochloride 30 mg oral tablet (1 source) alpha-Adrenerg ic Agonist Start: 11-07-2021 End: 12-05-2021 take 1 tablet by mouth twice daily pseudoephedrine 30 mg Tab 30 mg = 1 tab(s), Oral, BID, X 14 day(s), # 28 tab(s), Refills(s) 1, Pharmacy: [facility] 1985, 167, cm, 11/06/21 13:58:00 EDT, [...] use, # 1 EA, Refills(s) 5, Pharmacy: [facility] 1985, 167, cm, 06/27/23 10:33:00 EST, Height/Length Dosing, 111, kg, 06/27/23 10:33:00 EST, Weight Dosing Start Date: 06/27/23 Status: Ordered Start: 10-25-2022 take 232 ug by mouth every twelve hours fluticasone propionate 232 mcg/inh inhalation powder 232 mcg, Inhalation, q12hr, Swallowed rather than inhaled rinse mouth and throat after use, # 1 EA, Refills(s) 5, Pharmacy: [facility] 1985, 167, cm, 10/25/22 14:36:00 EDT, Height/Length Dosing, 110.1, kg, 10/25/22 14:36:00 EDT, Weight Dosing Start Date: 10/25/22 Status: Ordered sertraline 50 mg oral tablet (19 sources) Serotonin Reuptake Inhibitor Start: 01-20-2023 Zoloft 50 mg Tab 75 mg = 1.5 tab(s), Oral, Daily, # 135 tab(s), Refills(s) 3, Pharmacy: [facility] 1985, 167, cm, 06/27/23 10:33:00 EST, Height/Length Dosing, 111, kg, 06/27/23 10:33:00 EST, Weight Dosing Start Date: 06/27/23 Status: Ordered Start: 01-09-2022 Zoloft 50 mg T ab 75 mg = 1.5 tab(s), Oral, Daily, # 135 tab(s), Refills(s) 2, Pharmacy: [facility] 1985, 167, cm, 11/06/21 13:58:00 EDT, Height/Length Dosing, 91.5, kg, 11/06/21 13:58:00 EDT, Weight Dosing Start Date: 01/09/22 Status: Ordered Start: 12-28-2020 Zoloft 50 mg T ab 75 mg = 1.5 tab(s), Oral, Daily, # 135 tab(s), Refills(s) 2, Pharmacy: [facility] 1986, 167.6, cm, 12/22/20 12:51:00 EDT, [...] and Complexity of Problems Differential Diagnosis: [] [facility] Data External documents reviewed: [] My [...] MERNA In 3 days 06/29/[address] [facility] (more content not included)... Normal [facility] Comment on above: Result Comment: [...] to help much ER followup: Hospital: [facility] Visit date: 06/27/23 Symptoms the patient presented [...] 6 tab(s), Refills(s) 0, Pharmacy: [facility] 1985, 167, cm, 06/27/23 10:33:00 EST, Height/Length Dosing, 111, kg, 06/27/23 10:33:00 EST, Weight Dosing brompheniramine/dext romethorphan/PSE, 2.5 mL, Oral, q6hr for cold symptoms, 120 mL, Refill(s) 1, [facility], 167, cm, 06/27/23 10:33:00 EST, Height/Length Dosing, 111, kg, 06/27/23 10:33:00 EST, Weight Dosing hydrochlorothiazide, 12.5 mg = 1 cap(s), Oral, Daily, # 30 cap(s), Refills(s) 6, Pharmacy: [facility] 1985, 167, cm, 06/27/23 10:33:00 EST, Height/Length Dosing, 111, kg, 06/27/23 10:33:00 EST, Weight Dosing methylPREDNISolone, = 1 packet(s), Oral, As Directed, as directed on package labeling, X 6 day(s), # 21 tab(s), Refills(s) 0, Pharmacy: [facility] 1985, 167, cm, 06/27/23 10:33:00 EST, (more content not included)... [facility] Comment on above: Result Comment: Elec tronically Signed By: DIANA MOYER.br\Date and Time Signed: 06/27/23 12:02 EST Insurance Correspondenceon 1 08-28-2022 Insurance Correspondence [id number] 0#1.00TIFF [facility] Nursing Note - Woundon 06-27 Nursing Note - Wound [id number] 9#2.00TIFF [facility] Patient Educationon 06-27-20 23 Patient [...] safe for you. General instructions ? Take lvcm-ylc-psogjeo and prescription medicines only as told by [...] provider. Document Revised: 10/11/2020 Document Reviewed: 12/21/2019 [employer] Patient Education ? 2022 [employer] ENT Cough, Adult Coughing is a [...] ? Allergies. (more content not included)... Normal [facility] Physician Orderon 06-27-2023 Physician Order [id number] 4#1.00TIFF Normal [facility] Physician Referralon 023 Physician Referral [id number] #1.00TIFF Normal [facility] Progress Note - Woundon 06-07 Progress Note - Wound [id number] 2#1.00TIFF Normal [facility] Auto DiffOrdered By: SYSTEM SYSTEM on 06-26-2023 Basophils/100 WBC (Bld) 0.9 % Normal 0.0-2.0 [facility] Comment on above: Order Comment: Order Added by Discern Expert. Performed By: #### 1 [id number], 6969307, 6352371, 2327911, 06370609, 88843599 ####[facility] [address] [place] [address] Basophils/Leukocytes Auto (Bld) [Pure # fraction] 0.0 E9/L Normal 0.0-0.2 [facility] Comment on above: Order Comment: Order Added by Discern Expert. Performed By: #### 1 8026423, 2430337, 1024909, 7086396, 71909855, 42870572 ####[facility] [address] [place] [address] Eosinophils/100 WBC (Bld) 2.7 % Normal 0.0-8.0 [facility] Comment on above: Order Comment: Order Added by Discern Expert. Performed By: #### 1 9966143, 7672319, 9327046, 7887473, 20467732, 53592288 ####[facility] [address] [address] Eosinophils/Leukocyt es Auto (Bld) [Pure # fraction] 0.1 E9/L Normal 0.0-0.5 [facility] Comment on above: Order Comment: Order Added by Discern Expert. Performed By: #### 1 9437284, 7936663, 8223653, 4623229, 20651845, 72662941 ####[facility] [address] [address] Lymphocytes/100 WBC (Bld) 20.0 % Normal 14.0-50.0 [facility] Comment on above: Order Comment: Order Added by Discern Expert. Performed By: #### 1 3492223, 3312353, 3301275, 7030142, 89310843, 99122337 ####[address] [address] Lymphocytes/Leukocyt es Auto (Bld) [Pure # fraction] 0.9 E9/L Low 1.0-4.0 [facility] Comment on above: Order Comment: Order Added by Amanda Expert. Performed By: #### 1 6693862, 7970591, 1452284, 4457855, 49923098, 19854987 ####[address] [address] Monocytes/100 WBC (Bld) 7.4 % Normal 4.0-14.0 [facility] Comment on above: Order Comment: Order Added by Discern Expert. Performed By: #### 1 9962810, 7530942, 4652456, 3374609, 29604494, 60753817 ####[address] [address] Monocytes/Leukocytes Auto (Bld) [Pure # fraction] 0.3 E9/L Normal 0.2-1.0 [facility] Comment on above: Order Comment: Order Added by Discern Expert. Performed By: #### 1 8919712, 8814455, 9554582, 5527056, 36658043, 63674957 ####[facility] [address] [address] Neutrophils/100 WBC (Bld) 69.0 % Normal 36.0-75.0 [facility] Comment on above: Order Comment: Order Added by Discern Expert. Performed By: #### 1 6205496, 6074748, 4377581, 5072851, 87441432, 73311738 ####[place] [address] [place] [address] Neutrophils/Leukocyt es Auto (Bld) [Pure # fraction] 3.2 E9/L Normal 2.0-7.5 [facility] Comment on above: Order Comment: Order Added by Discern Expert. Performed By: #### 1 6520726, 3568115, 7943459, 6568256, 90968890, 76639793 ####[facility] [address] [address] BMPOrdered By: SYSTEM SYSTEM on 06-26-2023 Anion gap [Moles/Vol] 11 mmol/L Normal 6-16 [facility] Comment on above: Performed By: #### 1 2786404, 1439763, 6039803, 3141568, 56694771, 49568920 ####[place] [address] [address] Calcium [Mass/Vol] 8.6 mg/dL Low 8.9-11.1 [facility] Comment on above: Performed By: #### 1 3361727, 5899959, 8609838, 7165207, 15233086, 57625855 ####[place] [address] [place] [address] Chloride [Moles/Vol] 109 mmol/L Normal 101-111 [facility] daniela Chem Comment on above: Performed By: #### 1 2061995, 0273812, 5506301, 3670420, 59529249, 23036564 ####[place] [address] [place] [address] CO2 [Moles/Vol] 26 mmol/L Normal 21-31 [facility] Comment on above: Performed By: #### 1 3335844, 3376476, 9453346, 3030790, 83199170, 07809549 ####[facility] [address] [place] [address] Creatinine [Mass/Vol] 0.9 mg/dL Normal 0.5-1.3 [facility] Comment on above: Performed By: #### 1 4692313, 6848043, 1108576, 9611996, 10266029, 31366738 ####[facility] [address] [place] [address] Glucose [Mass/Vol] 104 mg/dL Normal 55-199 [facility] Comment on above: Performed By: #### 1 0535369, 1679991, 6153445, 7422027, 58412532, 13318262 ####[address] [address] Potassium [Moles/Vol] 3.9 mmol/L Normal 3.5-5.3 [facility] Comment on above: Performed By: #### 1 6011433, 7619645, 8919047, 3848658, 67645204, 38916686 ####[address] [place] [address] Sodium [Moles/Vol] 142 mmol/L Normal 135-145 Rem[facility] Comment on above: Performed By: #### 1 5943376, 3591225, 1844170, 3570528, 59958085, 97120253 ####[facility] [address] [place] [address] Urea nitrogen [Mass/Vol] 12 mg/dL Normal 5-21 [facility] Comment on above: Performed By: #### 1 4876169, 4399144, 8061077, 9099105, 41478609, 43909881 ####[facility] [address] [place] [address] BMPon 06-26-2023 BUN/Creat Ratio 13 No Units Normal 10-20 [facility] Comment on above: Performed By: #### 1 9378247, 1881237, 2153119, 7951311, 86599922, 56674063 ####[place] [facility] [address] [place] [address] CBC w/ Auto DiffOrdered By: Rossy Summers on 06-26-2023 Erythrocyte distribution width (RBC) [Ratio] 16.1 % High 10.9-14.2 [facility] Comment on above: Performed By: #### 1 6007439, 6319899, 0230751, 0808702, 58097054, 07905307 ####[address] [address] Hematocrit (Bld) [Volume fraction] 35.9 % Normal 34.0-46.0 [facility] Comment on above: Performed By: #### 1 6968122, 9139788, 9364866, 6854488, 53005793, 01980218 ####[facility] [address] [address] Hemoglobin (Bld) [Mass/Vol] 12.0 g/dL Normal 12.0-16.0 [facility] Comment on above: Performed By: #### 1 0114309, 2171827, 1982340, 6071037, 37240610, 85506000 ####[facility] [address] [address] MCH (RBC) [Entitic mass] 27.2 pg Normal 27.0-34.0 [facility] Comment on above: Performed By: #### 1 1872996, 8769169, 9197892, 7439265, 91920416, 62447333 ####[facility] [address] [address] MCHC (RBC) [Mass/Vol] 33.6 g/dL Normal 31.4-36.0 [facility] Comment on above: Performed By: #### 1 1589515, 6048543, 1763368, 7669192, 63034182, 76074892 ####[facility] [address] [address] MCV (RBC) [Entitic vol] 81.0 fL Normal 80.0-100.0 [facility] Comment on above: Performed By: #### 1 2122426, 9770078, 5290431, 2656638, 92688663, 58569471 ####[place] [address] [place] [address] Platelet mean volume (Bld) [Entitic vol] 7.9 fL Normal 6.4-10.8 [facility] Comment on above: Performed By: #### 1 1264787, 8581717, 4040714, 9226677, 93243296, 06424652 ####[address] [address] Platelets (Bld) [#/Vol] 138.0 E9/L Low 150.0-500.0 [facility] Comment on above: Performed By: #### 1 7774193, 9006415, 7076672, 4673412, 03274265, 09436619 ####[place] [address] RBC (Bld) [#/Vol] 4.4 E12/L Normal 4.3-5.9 [facility] Comment on above: Performed By: #### 1 2941373, 7240318, 6688571, 4554401, 92381017, 33843536 ####[address] [address] WBC corrected for nucl RBC Auto (Bld) [#/Vol] 4.6 E9/L Normal 4.0-11.0 [facility] Comment on above: Performed By: #### 1 0312913, 0644731, 5346472, 6159812, 91243666, 17612369 ####[facility] [address] [address] CHEMISTRYOrdered By: SYSTEM SYSTEM on 06-26-2023 eGFR mL/min/1.73 m2 Normal >=59mL/min/1.73 m2 Re misol Chem Urea nitrogen/Creatinine [Mass ratio] 13 mg/mg Normal 10 - 20 [facility] COAGULATIONOrdered By: Franko Saldana on 06-26-2023 aPTT Coag (PPP) [Time] 31.8 s Normal 25.1 - 36.5 second(s) [facility] Auto Coag Comment on above: Interpretive Data: [...] same coagulation reagent and instrumentation as [facility]. Currently there are no coagulation studies available worldwide for children to 14 days, and no normal ranges. Heparin therapeutic range (represented by Anti-Factor Xa activity of 0.2 - 0.4 U/mL) corresponds to PTT of 56.6 - 109.0 sec. PT Coag (PPP) [Time] 10.7 s Normal 9.4 - 1 2.5 second(s) [facility] Auto Coag Comment on above: Interpretive Data: [...] same coagulation reagent and instrumentation as [facility]. Currently there are no coagulation studies available [...] MD, V. Transcribed by: ANDRAE Technologist: ROSALINA [facility] Consent for Procedure/Surger yon 06-26-2023 Consent for Procedure/Surgery [id number] 1#1.00TIFF [facility] Consent for Treatmenton 06-07 Consent for Treatment [id number] #1.00TIFF [facility] Consent for Treatment [id number] #1.00TIFF [facility] Consent to Photographon 06-07 Consent to Photograph [id number] 6#1.00TIFF [facility] Correspondence - Woundon Correspondence - Wound [id number] 3#1.00TIFF Normal [facility] Correspondence - Wound [id number] 1#1.00TIFF Normal [facility] Discharge Instructionson Discharge Instructions [id number] 9#1.00TIFF Normal [facility] ED Clinical Summaryon 2022 ED Clinical Summary [place] [id number] ED Clinical Summary Person Information Name: MECCAJESSENIA/[place] Age: 52 Years : 1970 Sex: Female Language: Venezuelan PCP: Pb BAUMAN DO Marital Status: Visit Id: Visit Reason: Hypertension; Headache; HIGH BLOOD PRESSURE - SENT BY [facility] Speciality: Acuity: 3 Enc Type: Emergency [...] 06/26/2023 20:53:28 06/26/2023 20:53:28 06/26/2023 20:53:28 AD[address]: [address] [facility] [id number] PHYS DOC NOTES: MEDICAL INFORMATION: Prescriptions Given: [...] Follow up: With: Address: When: Pb BAUMAN [address] [facility], [facility] [place] [address] [phone] Business (1) In 3 days 06/29/2023 Comments: Follow-up with your primary care provider in 3 to 5 days. If symptoms worsen, do not improve, or new symptoms arise please report back to emergency department for further evaluation. Continue to monitor your blood pressure, and you may start 20 mg of lisinopril daily. DIAGNOSIS: Head ache; Hypertension Normal [facility] ED Patient Education Noteon 06-26-2023 ED [...] blood pr (more content not included)... Normal [facility] ED Patient Summaryon 023 ED Patient Summary [place] [id number] Patient Discharge Instructions Person Information Name: JESSENIA WING Age: 52 Years Arrival Date: 06/26/2023 18:31:10 Discharge Diagnosis: Head ache; Hypertension Primary Care Physician: Pb BAUMAN DO Provider Information Primary Provider: Everardo Perera DO Advanced Supply Assistant:None The exam and treatment you received in the Emergency Department were for an urgent problem and are not intended as complete care. It is important that you follow up with a doctor, nurse practitioner, or physician?s reading assistant for ongoing care. If your symptoms [...] BAUMAN [address] [facility], [facility] [place] [phone] Business (1) In 3 days 06/29/2023 Comments: [...] opioids can be used to help relieve pgjkzbac-vp-tszuvm pain and are often prescribed following a [...] Drug Administration (more content not included)... Normal [facility] Multi-Wound Charton 06-26-20 Multi-Wound Chart [id number] 4#1.00TIFF Normal [facility] Nursing Assessment - Woundon 06-26-2023 Nursing Assessment - Wound [id number] 9#2.00TIFF Normal [facility] Nursing Assessment - Wound [id number] 8#1.00TIFF Normal [facility] PT & PTTon 06-26-2023 aPTT Coag (PPP) [Time] 31.8 second(s) Normal 25.1-36.5 [facility] Comment on above: Result Comment: Para [...] same coagulation reagent and instrumentation as [facility]. Currently there are no coagulation studies available worldwide for children to 14 days, and no normal ranges. Heparin therapeutic range (represented by Anti-Factor Xa activity of 0.2 - 0.4 U/mL) corresponds to PTT of 56.6 - 109.0 sec. Performed By: #### 1 6853276, 8919147, 5775144, 9635984, 62293113, 47845304 ####[facility] [address] [place] [address] PT Coag (PPP) [Time] 10.7 second(s) Normal 9.4-12.5 [facility] Comment on above: Result Comment: 15 [...] same coagulation reagent and instrumentation as [facility]. Currently there are no coagulation studies available worldwide for children to 14 days, and no normal ranges. Performed By: #### 1 6549085, 6069109, 5373582, 8740900, 76344472, 92352481 ####[place] [facility] [address] [place] [address] PT & PTTOrdered By: Franko jenkins on 06-26-2023 INR Coag (PPP) [Relative time] 1.0 {INR} Invalid Interpretation Code [facility] Co[facility] Comment on above: Interpretive Data: [...] 3.0 ? 4.5 Performed By: #### 1 7945551, 5031971, 4144368, 9642013, 98996979, 14720478 ####[place] [facility] [address] [place] [address] Troponin 0 Hr.Ordered By: [employer] SYSTEM on 06-26-2023 Troponin 2.50 pg/mL Low 10.10-27.10 [facility] Comment on above: Interpretive Data: T he 95% CI (Confidence Interval) PPV (Positive Predictive Value) for myocardial infarction in females is 38 pg/mL, in males 51 pg/mL. The results should be used in conjunction with clinical conditions of myocardial infarction. (Access High Sensitivity Troponin I Instructions For Use, BranchOut, February 2018) Result Comment: The 95% CI (Confidence Interval) PPV (Positive Predictive Value) for myocardial infarction in females is 38 pg/mL, in males 51 pg/mL. The results should be used in conjunction with clinical conditions of myocardial infarction. (Access High Sensitivity Troponin I Instructions For Use, BranchOut, February 2018) Performed By: #### 1 [id number], [id number] ####[facility] [address] [place] [address] XR Chest Single Viewon 06-26 XR Chest [...] mGy = na DAP = na Normal [facility] eGFRon 06-26-2023 GFR/1.73 sq M.predicted among non-blacks MDRD (S/P/Bld) [Vol rate/Area] mL/min/{1.73_m2} Normal >=59 [facility] Comment on above: Order Comment: Order added by Discern Expert. Performed By: #### 1 [id number] ####[facility] [address] [place] [address] Reminderson 03-12-2023 Reminders - From: Morena Rousseau CNP To: Miya Tenorio; Sent: 03/05/2023 15:23:19 EDT Show up: 03/05/2023 15:24:00 EDT Subject: Ambulatory Reminder Reminder/Recall Colonoscopy in 2032. 02/05/2033 10 year colon recall Normal [facility] Gastroenterology Office/Clin ic Noteon 03-05-2023 Gastroenterology Office/Clinic [...] fluticasone propionate (more content not included)... Normal [facility] Comment on above: Result Comment: [...] getting enough exercise. ? Smoking. ? Taking xhfe-bok-ejydptf pain medicines, like aspirin and ibuprofen. ? [...] these instructions at home: Medicines ? Take taja-fuo-qurlykl and prescription medicines only as told by your health care provider. ? If told by your health care provider, take a fiber supplement or probiotic. Constipation prevention Your condition may cause constipation. To prevent or treat constipation, you may need to: ? Drink enough fluid to keep your urine pale yellow. ? Take ipto-vva-ownhifi or prescription medicines. ? Eat foods that [...] provider. Document Revised: 01/20/2020 Document Reviewed: 01/20/2020 [employer] Patient Education ? 2022 [employer]. Peptic Ulcer A peptic ulcer is a [...] hospitalized in a (more content not included)... [facility] Reminderson 02-18-2023 Reminders - From: Harvey Charles To: ZARI - Reminders/Recalls; Sent: 02/18/2023 15:57:52 EDT Show up: 01/04/2033 15:57:00 EDT Subject: Ambulatory Reminder Due Date/Time: 02/05/2033 15:57:00 EDT Reminder/Recall Repeat colonoscopy in 10 years(2032) Normal [facility] Postoperative Documentson Postoperative Documents [id number] 1#1.00CD:127 [facility] IntraOperative Documentson 0 02-10-2023 IntraOperative Documents [id number] 3#1.00CD:127 [facility] Consenton 02-06-2023 Consent [id number] 9#1.00CD:127 Normal [facility] Discharge Instructionson Discharge Instructions [id number] 9#1.00CD:127 Normal [facility] Main OR Intraoperative Recor don 02-06-2023 Main OR Intraoperative Record IntraOp Document Type FT Summary Primary Physician: Keith CHUNG MD Finalized Date/Time: 02/06/23 09:01:34 Pt. Name: MECCA, JESSENIA /Sex: 1970 Female Med Rec #: [id number] Physician: Keith CHUNG MD Financial #: [id number] Pt. Type: O Room/Bed: Endo OP 02/04 [...] Attendee Costa RYDER, Zeke Acuna, Romana Mello PEARL STRINGER, Monica Tovar Role Performed SHIELD INSTALLER Staff - Other Scrub - Primary Time [...] Kaleigh Cuellar Role Performed Surgeon - Primary Topper Packer - Primary Time In 02/05/23 13:06:00 02/05/23 [...] and tissue Entry 1 Skin Integrity Intact, [place], Warm, and Skin Abnormality No Dry Outcomes Met? Yes Last Modified By: Kaleigh Menendez RN 02/05/23 13:10:51 Post-Care Text: The patient is free from signs and symptoms of injury caused by extraneous objects Patient Positioning FT Pre-Care Text: Identifies physical alterations that require additional precautions for procedure-specific positioning, verifies (more content not included)... Normal [facility] Consent for Treatmenton Consent for Treatment [id number] #1.00CD:127 Normal [facility] Discharge Instructionson Discharge Instructions JESSENIA WING [...] 24 hours Discharge Diet(s) Regular Pharmacy Information [facility] Discharge Instructions Discharge Instructions New Follow Up Appointments after Discharge Follow Up with OMAR CROCKER, LAINEY Parker, [facility] When: Comments: Call for any problems. Office will call to schedule follow up appointment Where: [address] [place] [address] Medications What How Much When Instructions Next Dose Changed omeprazole (omeprazole 20 mg Cap-DR) 1 Capsules By Mouth Every day Changed omeprazole (omeprazole 40 mg Cap-DR) 1 Capsules By Mouth Every day Pickup at [facility] Unchanged albuterol (albuterol HFA 90 [...] Tablets By Mouth Every day Pharmacy Information [facility] 1986: [address] [place], [place] [phone] Test Results No qualifying data available. Allergies [...] activities are safe for you. ? Take fvct-wiu-pdxjqzx and prescription medicines only as told by [...] you f (more content not included)... Normal [facility] Comment on above: Result Comment: [...] Return to activities:: After 24 hours. Normal [facility] Comment on above: Result Comment: Elec tronically Signed By: Keith CHUNG MD\.br\Date and Time Signed: 02/05/23 13:31 EDT Other Comment: Analia monique Attachment - attachment storage system not supported [id number] Can be viewed in source systemMissing Attachment - attachment storage system not supported [id number] Can be viewed in source systemMissing Attachment - attachment storage system not supported [id number] Can be viewed in source system Endoscopic [...] Distal esophageal Schatzki ring, dilated using 60 Prydeinig Mckoy dilator 2. Mild gastric erosions, biopsied to rule out H. pylori 3. Normal duodenal mucosa Images Procedure images: Rec1_hd_video_2022_0 ___13_111.ewa g Rec1_hd_video_2022_0 8_T1__36_918.ewa g Rec1_hd_video_ 8__19_35_722.ewa g . Post-Procedure Complications: none. Estimated blood loss: none. Specimens: sent to pathology. Devices/ implants: none left in place. Impression and Plan 1. Distal esophageal Schatzki ring, dilated using 60 Prydeinig Mckoy dilator 2. Mild gastric erosions, biopsied to rule out H. pylori Recommendations: Follow-up in GI clinic in 2 weeks Omeprazole 40 mg p.o. daily Normal [facility] Comment on above: Result Comment: Elec tronically Signed By: Keith CHUNG MD\.br\Date and Time Signed: 02/05/23 13:30 EDT Other Comment: Analia monique Attachment - attachment storage system not supported [id number] Can be viewed in source systemMissing Attachment - attachment storage system not supported [id number] Can be viewed in source systemMissing Attachment - attachment storage system not supported [id number] Can be viewed in source system Main OR PACU I Recordon Main OR PACU I Record PACU Phase I Document Type FT Summary Primary Physician: Keith CHUNG MD Finalized Date/Time: 02/05/23 14:25:47 Pt. Name: JESSENIA WING/Sex: 1970 Female Med Rec #: [id number] Physician: Keith CHUNG MD Financial #: [id number] Pt. Type: O Room/Bed: Endo OP 02/04 [...] By: Marcie Ramos RN 02/05/23 14:25 Normal [facility] Main OR Preoperative Recordo n 02-05-2023 Main OR Preoperative Record Holding Area Document Type FT Summary Primary Physician: Keith CHUNG MD Finalized Date/Time: 02/05/23 12:11:06 Pt. Name: JESSENIA WING/Sex: 1970 Female Med Rec #: [id number] Physician: Keith CHUNG MD Financial #: [id number] Pt. Type: O Room/Bed: Endo OP 02/04 [...] By: Cristiane Corey RN 02/05/23 12:11 Normal [facility] Monitor Recordon 02-05-2023 Monitor Record [id number] 4#1.00CD:127 Normal [facility] Patient Education - Texton 0 02-05-2023 [...] unsweetened, w/added ascorbic acid 1 cup 0.5 Edmonson 1 cup 0.7 Vegetables Cooked Green beans 1 cup 4.0 Carrots 1/2 cup sliced 2.3 Peas 1 cup 8.8 Potato (baked, with skin) 1 medium potato 3.8 Raw Filer (with peel) 1 cucumber 1.5 Lettuce 1 [...] IMMEDIATE MEDIC (more content not included)... Normal [facility] Progress Note-Physicianon Progress Note-Physician Patient: JESSENIA [...] Daily, # 135 tab(s), Refills(s) 3, Pharmacy: [facility], 167, cm, 12/18/22 9:30:00 EDT, Height/Length Dosing, 106.5, kg, 12/18/22 9:30:00 EDT, Weight Dosing albuterol HFA 90 mcg/inh MDI: 2 puff(s), Inhalation, QID, 1 EA, Refill(s) 2, [facility], 167, cm, 05/25/20 16:49:00 EST, Height/Length Dosing, 112.5, kg, 05/25/20 16:49:00 EST, Weight Dosing fluticasone propionate 232 mcg/inh inhalation powder: 232 mcg, Inhalation, q12hr, Swallowed rather than inhaled rinse mouth and throat after use, # 1 EA, Refills(s) 5, Pharmacy: [place] [address], 167, cm, 10/25/22 14:36:00 EDT, Height/Length Dosing, 110.1, kg, 10/25/22 14:36:00 EDT, Weight Dosing... lisinopril 10 mg Tab: 10 mg = 1 tab(s), Oral, Daily, # 90 tab(s), Refills(s) 1, Pharmacy: [place] [address], 167, cm, 05/16/22 14:29:00 EST, Height/Length Dosing, 100.9, kg, 05/16/22 14:29:00 EST, Weight Dosing omeprazole 20 mg Cap-DR: 20 mg = 1 cap(s), Oral, Daily, # 90 cap(s), Refills(s) 3, Pharmacy: [facility] 1985, 167, cm, 12/18/22 9:30:00 EDT, Height/Length Dosing, 106.5, kg, 12/18/22 9:30:00 EDT, Weight Dosing omeprazole 40 mg Cap-DR: 40 mg = 1 cap(s), Oral, Daily, # 30 cap(s), Refills(s) 1, Pharmacy: [facility] 1985, 167, cm, 02/05/23 12:12:00 [...] All Problems Allergic rhinitis / SNOMED CT 653447018 / Confirmed Anemia / SNOMED CT 041119298 / Confirmed Anxiety / SNOMED CT 75241554 / Confirmed Breast cancer screening / SNOMED CT 716799055 / Confirmed Colon cancer screening / SNOMED CT 745116142 / Confirmed Dysphagia / SNOMED CT 48565041 / Confirmed Heartburn / SNOMED CT 31732925 / Confirmed History of left knee replacement / SNOMED CT 1944426334 / Confirmed HTN (hypertension) / SNOMED CT 3201053745 / Confirmed Medial meniscus tear / SNOMED CT 948449371 / Confirmed left Non-smoker / SNOMED CT 40736765 / Confirmed Normocytic anemia / SNOMED CT 322454456 / Confirmed Osteoarthritis / SNOMED CT 1505057608 / Confirmed left knee Tenderness of lymph node / SNOMED CT 706029317 / Confirmed Venous insufficiency / SNOMED CT 059395337 / Confirmed Resolved: BACTERIAL PNEUMONIA, UNSPECIFIED / ICD-9-CM 482.9 Resolved: Hypertension / SNOMED CT 4465883725 Resolved: Microcytosis / SNOMED CT 615355554 Resolved: None / SNOMED CT 951187775 Resolved: Screening for cardiovascular condition / SNOMED CT 180965417 Resolved: Ventral hernia / SNOMED CT 1246924713 Canceled: Blood pressure elevated without history of HTN / SNOMED CT 0925121671 Canceled: Bronchitis with wheezing / SNOMED CT 6395844573 Canceled: Obesity (BMI 30-39.9) / SNOMED CT 280047322 Physical Examination Vital Signs 02/05/2023 13:25 EDT [...] 118 mmH (more content not included)... Normal [facility] Comment on above: Result Comment: [...] Daily, # 135 tab(s), Refills(s) 3, Pharmacy: [facility], 167, cm, 12/18/22 9:30:00 EDT, Height/Length Dosing, 106.5, kg, 12/18/22 9:30:00 EDT, Weight Dosing albuterol HFA 90 mcg/inh MDI: 2 puff(s), Inhalation, QID, 1 EA, Refill(s) 2, [facility], 167, cm, 05/25/20 16:49:00 EST, Height/Length Dosing, 112.5, kg, 05/25/20 16:49:00 EST, Weight Dosing fluticasone propionate 232 mcg/inh inhalation powder: 232 mcg, Inhalation, q12hr, Swallowed rather than inhaled rinse mouth and throat after use, # 1 EA, Refills(s) 5, Pharmacy: [facility], 167, cm, 10/25/22 14:36:00 EDT, Height/Length Dosing, 110.1, kg, 10/25/22 14:36:00 EDT, Weight Dosing... lisinopril 10 mg Tab: 10 mg = 1 tab(s), Oral, Daily, # 90 tab(s), Refills(s) 1, Pharmacy: [facility], 167, cm, 05/16/22 14:29:00 EST, Height/Length Dosing, 100.9, kg, 05/16/22 14:29:00 EST, Weight Dosing omeprazole 20 mg Cap-DR: 20 mg = 1 cap(s), Oral, Daily, # 90 cap(s), Refills(s) 3, Pharmacy: [facility], 167, cm, 12/18/22 9:30:00 EDT, Height/Length Dosing, [...] All Problems Allergic rhinitis / SNOMED CT 291903642 / Confirmed Anemia / SNOMED CT 217354435 / Confirmed Anxiety / SNOMED CT 25446315 / Confirmed Breast cancer screening / SNOMED CT 909284275 / Confirmed Colon cancer screening / SNOMED CT 863196801 / Confirmed Dysphagia / SNOMED CT 77332847 / Confirmed Heartburn / SNOMED CT 23906842 / Confirmed History of left knee replacement / SNOMED CT 3285303651 / Confirmed HTN (hypertension) / SNOMED CT 0498957641 / Confirmed Medial meniscus tear / SNOMED CT 913699782 / Confirmed left Non-smoker / SNOMED CT 38346246 / Confirmed Normocytic anemia / SNOMED CT 879083170 / Confirmed Osteoarthritis / SNOMED CT 1669539911 / Confirmed left knee Tenderness of lymph node / SNOMED CT 871832408 / Confirmed Venous insufficiency / SNOMED CT 001766614 / Confirmed Resolved: BACTERIAL PNEUMONIA, UNSPECIFIED / ICD-9-CM 482.9 Resolved: Hypertension / SNOMED CT 4810730295 Resolved: Microcytosis / SNOMED CT 507412123 Resolved: None / SNOMED CT 179831637 Resolved: Screening for cardiovascular condition / SNOMED CT 717509697 Resolved: Ventral hernia / SNOMED CT 2533991406 Canceled: Blood pressure elevated without history of HTN / SNOMED CT 7637191726 Canceled: Bronchitis with wheezing / SNOMED CT 5401820609 Canceled: Obesity (BMI 30-39.9) / SNOMED CT 702869648, Active Problems (15) Allergic rhinitis Anemia Anxiety Breast cancer screening Colon cancer screening Dysphagia Heartburn History of left knee replacement HTN (hypertension) Medial meniscus tear Non-smoker Normocytic anemia Osteoarthritis Tenderness of lymph node Venous insufficiency Histories Past Medical History: Resolved None (036971384): Resolved. Ventral hernia (0092175171): Resolved. BACTERIAL PNEUMONIA, UNSPECIFIED (482.9): Resolved. Screening for cardiovascular condition (364591978): Resolved. Hypertension (6481629079): Resolved. Microcytosis (332095005): Resolved. Family History: Depression Child Depression Mother () Bipolar Sister Schizophrenia Brother Procedure history: Sclerotherapy ([id number]) on 09/02/2022 at 51 Years. Revision (310815763) on 12/20/2020 at 50 Years. Comments: 12/22/2020 13:37 CATT - Marcelina Powell left knee arthroplasty Sclerotherapy ([id number]) on 10/05/2020 at 49 Years. left TKR on 11/18/2016 at 45 Years. knee arthr (more content not included)... Normal [facility] Comment on above: Result Comment: Elec tronically Signed By: Munir Adams DO.br\Date and Time Signed: 02/05/23 12:26 EDT CNOVon 12-25-2022 CNOV Office Visit (ORTHCO) JESSENIA WING ([id number]) 1970 F Date Time Provider Department 12/25/22 [...] knee joint Informed Consent Consent Obtained: Verbal [place] Protocol A moment to CARE was completed. [...] recreational acti (more content not included)... Normal [facility] XR KNEE 4V AP/PA BOTH+LAT/ME R [...] Severe medial compartment joint space narrowing with mprl-jw-xykn contact. Small joint effusion. Venous varicosities are noted in the soft tissues. Left total knee arthroplasty is present. IMPRESSION: Advanced medial compartment predominant osteoarthritis of the right knee. Cryptologic Supervisor: JAM Transcribe Date/Time: Dec 25 2022 11:24A Dictated by : KATERINE BOWSER MD This examination was interpreted and the report reviewed and electronically signed by: KATERINE BOWSER MD on Dec 25 2022 11:24AM EST [id number] Normal [facility] Consent for Procedure/Surger yon 12-19-2022 Consent for Procedure/Surgery [id number] 9#1.00CD:127 Normal [facility] Gastroenterology Office/Clin ic Noteon 12-19-2022 Gastroenterology [...] with voice recognition artificial intelligence software, specifically [employer], [employer] and or [employer]. Substitutions may have occurred due to the inherent limitations of voice recognition and artificial intelligence software. ATTESTATION: Documentation services were performed after patient or guardian consented to allow [employer] to record this visit. STEFFI visual specialist and provider reviewed before signing. STEFFI: [...] Revision ( (more content not included)... Normal [facility] Comment on above: Result Comment: [...] Screening for cardiovascular condition Ventral hernia Normal [facility] Consent for Treatmenton 12-05 Consent for Treatment [id number] #1.00CD:127 Normal [facility] Family Medicine Office/Clini c Noteon 12-16-2022 [...] left lower leg) Patient seen in the [facility] care. Following exam discussed exam is concerning [...] Pb BAUMAN DO, DEJUAN [address] [place] [address]- Additional Instructions: Patient Education BMI for Adults Edema, Tqfh-si-Semt Musculoskeletal Pain Problem List/Past Medical History Ongoing Allergic rhinitis Anemia Breast cancer screening Dysphagia History of left knee replacement Non-smoker Normocytic anemia Tenderness of lymph node Venous insufficiency Historical BACTERIAL PNEUMONIA, UNSPECIFIED Hypertension Microcytosis None Screening for cardiovascular condition Ventral hernia Procedure/Surgical History Sclerotherapy (09/02/2022), Revision (12/20/2020), Scl (more content not included)... Normal [facility] Comment on above: Result Comment: [...] numbers. This can be done either in [place] or metric measurements. Note that charts and online BMI calculators are available to help you find your BMI quickly and easily without having to do these calculations yourself. To calculate your BMI in [place] ([place] measurements: 1. Measure your weight in [...] for Disease Control and Prevention: www.cdc.gov ? [place] Heart Association: www.heart.org ? National Heart, Lung, and Blood [place]: www.nhlbi.nih.gov Summary ? Body mass index (BMI) is a number that is calculated from a person's weight and height. ? BMI may help estimate how much of a person's weight is composed of fat. BMI can help identify those who may be at higher risk for certain medical problems. ? BMI can be measured using [place] measurements or metric measurements. ? BMI charts are used to identify whether you are underweight, normal weight, overweight, or obese. This information is not intended to replace advice given to you by your health care provider. Make sure you discuss any questions you have with your health care provider. Document Revised: 03/15/2020 Document Reviewed: 01/21/2020 [employer] Patient Education ? 2022 [employer]. Obstetrics and Gynecology Edema Edema is when [...] or shiny. (more content not included)... Normal [facility] US LE Venous Duplex Lefton 0 [...] M.D. Transcribed by: ANDRAE Technologist: MYLA Connell [facility] Family Medicine Office/Clini c Noteon 11-29-2022 [...] With When Contact Information ANA CHÁVEZ CNP [address] [place] [address] Additional Instructions: Patient Education Dysphagia Exercising to [...] Recorded SARS (more content not included)... Normal [facility] Comment on above: Result Comment: [...] these instructions at home: Medicines ? Take eijx-aoj-fxtsepc and prescription medicines only as told by your health care provider. ? If you were prescribed an antibiotic medicine, take it as told by your health care provider. Do not stop taking the antibiotic even if you start to feel better. Eating and drinking ? Make any diet changes as told by your health care provider. ? Work with a diet and community nutrition educator (dietitian) to create an eating plan that [...] person's throa (more content not included)... Normal [facility] Ambulatory Visit Summaryon 0 11-22-2022 Ambulatory [...] AM EDT With: Keith CHUNG MD Where: [facility] Normal [facility] Ambulatory Visit Summaryon 0 11-03-2022 Ambulatory [...] PM EDT With: ANA CHÁVEZ CNP Where: [facility] Family [facility] [place] Normal [address] [address]- \.br\ You Need to Schedule the Following Appointments\.br\ Follow Up with Pb BAUMAN DO, FAM When: \.br\ Where:\.br\ [address]br\ [place] [address].br\ \.br\ Medications\.br\ What How Much When Why Instructions\.br\ New albuterol (Albuterol (Eqv-ProAir HFA) 90 mcg/ inh inhalation aerosol) 2 Puffs Inhalation Every 4 hours as needed for Shortness of breath or wheezing Acute viral bronchitis Duration: 21 Days [facility]up at [facility]\.br\ New benzonatate (benzonatate 100 mg Cap) 1 Capsules By Mouth 3 times a day as needed for Cough Acute viral bronchitis [facility]: [facility]\.br\ New methylPREDNISolone (Medrol 4 mg Tab) 1 Packets By Mouth As Directed Acute viral bronchitis Duration: 6 Days as directed on package labeling Pickup at [facility] 1985\.br\ Unchanged albuterol (albuterol HFA 90 [...] if questions or concerns \.br\ Pharmacy Information\.br\ [facility]: [address] [place], [place] [phone]\.br\ Allergies\.br\ No Known Medication Allergies\.br\ seasonal ,dust, [...] instructions at home:\.br\ \.br\ ? \.br\ Take tcfz-sqt-dxhjwff and prescription medicines only as told by [...] and water are not available, use hand rn coronary care unit.\.br\ ? \.br\ Avoid contact with people who [...] have a fever.\.br\ Get help susan Brewer [facility] Family Medicine Office/Clini c Noteon 11-03-2022 Family [...] for 21 day(s), 6.7 gm, Refill(s) 0, [facility], 167, cm, 11/03/22 12:20:00 EDT, Height/Length Dosing, 108.1, kg, 11/03/22 12:20:00 EDT, Weight Dosing benzonatate, 100 mg = 1 cap(s), Oral, TID, PRN Cough, X 10 day(s), # 30 cap(s), Refills(s) 0, Pharmacy: [facility] 1985, 167, cm, 11/03/22 12:20:00 EDT, Height/Length Dosing, 108.1, kg, 11/03/22 12:20:00 EDT, Weight Dosing methylPREDNISolone, = 1 packet(s), Oral, As Directed, as directed on package labeling, X 6 day(s), # 21 tab(s), Refills(s) 0, Pharmacy: [facility] 1985, 167, cm, 11/03/22 12:20:00 EDT, [...] When Contact Information Pb BAUMAN DO, DEJUAN [address] [place] [address]- Additional Instructions: Patient Education Acute [...] Denies Al (more content not included)... Normal [facility] Comment on above: Result Comment: [...] numbers. This can be done either in [place] ([place] or metric measurements. Note that charts and online BMI calculators are available to help you find your BMI quickly and easily without having to do these calculations yourself. To calculate your BMI in [place] ([place] measurements: 1. Measure your weight in [...] for Disease Control and Prevention: www.cdc.gov ? [place] Heart Association: www.heart.org ? National Heart, Lung, and Blood [place]: www.nhlbi.nih.gov Summary ? Body mass index (BMI) is a number that is calculated from a person's weight and height. ? BMI may help estimate how much of a person's weight is composed of fat. BMI can help identify those who may be at higher risk for certain medical problems. ? BMI can be measured using [place] measurements or metric measurements. ? BMI charts are used to identify whether you are underweight, normal weight, overweight, or obese. This information is not intended to replace advice given to you by your health care provider. Make sure you discuss any questions you have with your health care provider. Document Revised: 03/15/2020 Document Reviewed: 01/21/2020 [employer] Patient Education ? 2022 [employer]. Pulmonary Medicine Acute Bronchitis, Adult Acute bronchitis [...] condition is (more content not included)... Normal [facility] Family Medicine Office/Clini c Noteon 10-28-2022 [...] discuss effectiveness of treatment plan. Ordered: [facility] Internal Ambulatory Referral 2. BMI 39.0-39.9,adult (Z68.39: Body mass index [BMI] 39.0-39.9, adult) Education attached on health risks of obesity and discusses healthy, balanced diet low in sugar, fat, carbs and exercise regimen ATTESTATION: Documentation services were performed after patient or guardian consented to allow Kia Jean to record this visit. STEFFI visual specialist and provider reviewed before signing. STEFFI: [...] HFA 90 (more content not included)... Normal [facility] Comment on above: Result Comment: [...] fruits, and frozen vegetables. ? Avoid buying zopga-ot-mgd foods, such as pre-cut fruits and vegetables [...] Tips for buyi (more content not included)... [facility] Ambulatory Visit Summaryon 0 10-25-2022 Ambulatory Visit [...] PM EDT With: ANA CHÁVEZ CNP Where: [facility] Family Medicine [facility] Coding Summary.on 09-03-2022 Coding Summary. CD:[id number] Gh0bWw+PGhlYWQ+PE1FV LFoV23qsVTqiZ2DA8rXW A2APFIWLMWNCI3TAT8py VW2AUddP6WyrnCw PuqhxIQoPG65FNd0TER4 qKloTKfeiH7flIZxS8b9 FqTvHX57eF58XEbwBOJx EfJ7LwXmszcipYXt X0giOrYieYXyMxn+PHRh YmxlIHdpZHRoPScxMDAl YdMdwEedOP9gXj1iSKMm LWNvbGxhcHNlOiBj g6mvOBFdGMgwJS6grAcj M3BtoDQ4WTWlb9u4Vg26 dHI+ZCTdXST3jNqkATac r319HhHjk0pqDRO1 tXNpOWzjADS6I34jk6M2 XIYnFYVmADW5cIM0rX7g fHnstjvpV1DfiCRyTlS8 BJL4vYFfrF2ljYvw uenvmO8uCqq+Q32BAO8V QHLEPH8VPgr5A7OrRwlm dHI+BJ69ZTHaOC28rMWr bRZtx1fxvCo6YtLm UZEbCJO2bIarPUvxh8Ir YPLjE28zmWMit4O5LQUv tVlzxGVjIxZbtJL3gI6b RZfpsxzxd0hngxmt Hjzkv3dfnx95kB66Y09u ZKquLCJsSTD1DAYqHLIw aCywei6qcO9jPp7+IDxj i3jwa4xzyHk4NlRf IOUfazPjlAnqFZW9v4Xg Pp07D2TqaIhuk5XeHmb5 bb20gZPvf7I0uLX4EOcl XFKgdD8uTWekKiB7 OSIwMoBoyD04wEItAEbm Ac5gzKtwwNicUS8zPOXp yxmcPGDycV6wWOFprYFs sExaLL4zDQByajvp n475XuFdVZX2NAEkvHRt B8QhxB0nDqJhBAUdOSNc T2BwbIHsWVimF999YJjw FtY8ZNGmodAzZ5Fd KLRazXwbEvZ5k6A1Uo0Y d9GohclqPJV8FGrjEMAt RkY9VqBwEjH6L7FiDlf9 NFOjqWdbJO8zI0Rk QBGrwwbrnrdonUU5VSYe GROyeU66eQEpFMonJc0y r2W3t065LIIfPZVhnD93 Jb5csZmvWMGdbPUP lA0pfftwg8jdfqqeZfVd XYGpMVn2CFd2VTXivUxq SjKlOCG4SyV8EQS6gHXh tB3vaBkoxjbrpR1z Oyc+C60ctU9oFUH2SIA1 nzngSGCtepSsCW48IP99 J1SpQjautRMlsVX+PGRp evHsdDyuIE4iXoVx m8cnt0HwQZapN6GnGJFd JEjzZzi3RWReYDO5gOR6 aK7iJQUsDLzax1R5gVF3 P1FigvFymp1yj7hg ILWzVAosX73iyULne4L1 CTMyrWO2DLMmlOwkMuTi lL75Itu+NUMxtQeuu0Wp Akxsg2vut9vstGb3 IjMwJSIgdmFsaWduPSJ0 r1KzEu47U28lXCovUKLe AHYeNOYuHIAqrCggok2g uE2qXl3+PGNvbCB3 qUF9zF6uVROdHaZ0YBag M574NrOulQPnSqwnt9pz x6ixtAz9CvMxBEJkztMa bRgvJZM1g3VxQt04 C12xBWqcZBUtUHYsWWVs GEDfdHftpc6bkP9gYg1+ AE7th3rqkp35wA08jNR+ UHUyRKV6aSrvJIjj DGFbsV3jDZcwKjH6KDUb SrUjzV45uYSsLZdfDg5u vAwgqQfvPY2gASDgtbnk x088SsOig9wvGHAb wGHuCEarLEH5T31lk9N3 EVYnVQMoZFU7zVL9dJ9e bGlnbjogbGVmdDsgdmVy bLqlAIijZJggZ367 IHRvcDsnPlBhdGllbnQg YhUfCTl4G2PqHev7UIPi eBlkWX5nhDFxIPajWv2c dKmoiZxsSP5nCEYb psuij395SkFmf9uyAUYn xJLeHFcnHCO6G57ka9M4 CFQhBVPoBHU8bTF9fV7o bGlnbjogbGVmdDsg ubKblEnzPJsuORyxC505 IHRvcDsnPkJpcnRoIERh kJU3NM18ZY01bBXfz6Z9 dMG0L0BfUCWjuawt kgigxMM5GNPjPCPvkA16 Cy5lzCpvFg4gNDLjZZF0 XEOtoUFiF5BlhJ8hGcKg VWQrROTzI1GdeOZt QFzjA300FWtwRqC7JSPw nlTkO4TfOBYjcKwcVyC0 k6Y9Dv1SA8H9ME52FR71 pJFeb2V1sOY1Q7Wt QWOycmggxflpnJY7QBXn WCCwwS09Ou3ldKqrOx4h VQRjLIR6YEEyuBIyU1Di wX5oRwPbBMQfIZKd I0HpbSKiEEkdY792FAyd EfW9YORmgbFrN3PzSUYg rKcyFtF7d2D0Bm1SUEd5 FD51SK64mUMxy6S0 qRZ9A9RlUOVftoqwlexs aEP6DZOrPRWlgO87Vz4z lGukTf9sQXGuTYT9XJJx eVMhV5GquU3wNoDb ZIXaMTGyC4SpeKCkGCxk D436UKqwQxF3NLBqpbHe T6SmFBDkvVpuIsZ0u0L5 Zj2KZLYeEI24LRH4 cEF1VE29JU01T5OuQfyf dGFibGU+PHRhYmxlIHdp ZHRoPScxMDAlJyBzdHls OU3dEg2rCGNrJFOp uIxvsZKyDfDkf1syPBLq CEjuEL4ntPdkK2MojLU0 FSLpo9u1Lr39G07oK4Bs dXA+BZFqyMX9mEK4 nD9kTlWtAxZ0PJjoY748 GyIytRRrNtjgz0crr9wp wHx7MtN1MMIffeQdfOdq RLV1i4IrGe79L62c IHdpZHRoPSIxNSUiIHZh hMebjh9noL8dWe3+PGNv eCD4xIO5jM6kPvLyTqK8 NHbpO202LyFqlWGg Mkgag9dhy7zfqCs5GaXs QOOwdbOqnNjbVAB3x1Gj Gn97N7VkpLfmg3HqWhr7 fk88hABos1B3iMI6 X7LlXOCluaimcEJekFkr BY9iBXXgeyymBLEorN7p JIPwB0x9WdSsIfM9FAci G4FtocE5OXLloNGl TErxKSY1F54pi5O6PNVf KZXlTBD3nJW9nM0paNve bjogbGVmdDsgdmVydGlj GVptFUksG257ZDMj wQppOASijH1xUQJspHLo zXjiMJ1xREXpmkzjSmqD STPSKqvgI6VKDJaXVrbI EP36P1XxRze4NIVm yIedBI8ofSCeSGqyBo6g hLcjjBoqKT7mMNJdshkr HLFrlR5qIMTgaMOqhDyo GE5xHXOcksrjj907 CbTrRNV6YMEzxRCpI6Jz fB4eCqMfDYBdAKKeG6Is kUNaECqsX462BNxlKmW6 CQWlmmRtX1VnLQVm gEyeHtV5s6K3Yq0yNh3w CE4gOXstLP72CL40mSMy n3N9uSZ5C3YcUUCbrylq jbchkJR5VJFnVAGd kC71kMMkHWmzFj1xa3W6 t005PEUgGXPbyI74Cj8k aJmfXZFiyOLIbW1udsbq x7zhegqkBoKlSLDj RWa5QZh3PNNjpGpaJuAg JKH9DhQ8UUZ6uUFopL7o uUzyiqplsB7pTtm+NTAg IWTulmE8Z1QpQrb5 NEWdxIymFA2jgRIaJDpq Sg9ouSjcjFjpDC2sEZVh swfnOHJlhA2xOEGvuOIs kDgkWL2aLMHuqpoe f030YuErCKM8JWGycXUx A1GhpJ2yPdBbTOAaKHZh N7BzjJMlFRplV584VOzb HcB5RZSjraKiQ6Yp QIJuxChfHyC0y2Z5Zo0J JH0laSW2M3JePog7WXHj kMmwET4kzFPnOByhQk2t tYdfoQrlRY8sWDSa kqtnVPUtmS1qEXIyjJPg iVhuFR7nXYTfmknzt743 CsVlEJP4OZZqpUKuX7Tc oO8iGjKkZSQwKHHo P1MnkICtYNitQ154MPos SpC3FJHyjnUvA0VkEBRv fYqrDhZ1v7S5Kk2AtSY5 oWL2g7Y7C0JvzVHh DLJ7MLE7wwzwlpc9C7Tm PjwvdHI+OZ54KZIbEZ79 bMJkmVZbj1tdyJv3RqLe QSIxQEE7rOdcUYao c3LzXPWcA72fePAbz1T9 IGNvbGxhcHNlOyBlbXB0 fA9cXSnaqbllq5lrrjkb Awxom6xwrp95yM42 H02fEQooTFRmWJPfIJEy FBZqhEczyp2gaQ0yWc9+ LHYfoZN9jRM3tE8vBoXr PnP1KVfzB349MbHb uENzAkcyq3inr8uvrBc9 IjIwJSIgdmFsaWduPSJ0 y5PyRe60B62tKYerFNWc PSIyMCUiIHZhbGln zq2lmN2cQp8+NV4sj6jh zz66yX76lRV+PHRkIHN0 oExlBLcoLFFrfD5iTBel QaV2IVDwGoXtkF83 nDAmFMdzFt1mqLdepWyy JP9sUGQaoddgi226DrNo p6myKEHrbSKlYNtdHJR2 O61ob6S8FPRzMHBp ENA3rHT9fZ3tvOftiwjy bGVmdDsgdmVydGljYWwt EQvdM860JSSyxZclSnTs xWLmK1ymqzRJUL1n OjwvdGQ+FGOeELZ5rIcc QLnlBHJopP8iMXYzP8v5 HbGsDiP4VEsjS5RzirD8 IGJvbGQgMTBwdCBU iO6ydkxqw3nduimpIcPt YPMmXTo8PJq4NDFcwHvm TkClYTY2SlU0TPF5nFFw bY4vjMqeeuwvwI5g Oyc+RklOOjwvdGQ+PHRk FDC7rWrdAIwiXMZmiB9j HGElW2p5CnQmUsC1CRyp K9SvftZ5DUDsvJZd MLWuzODAkE1pjftdy4lk cujsSvAePSZbGTf5BLs3 XSLogOhvBuKdHIH2FtT7 CHZ5sCCueU0sbVgy lxralR3nWag+TVJOOjwv dGQ+FNShYRW0iKriMWhe VZYciT3yYSNyB0z1TwLq NfW6RAluS6TpfgQ2 BDLtsTWpWTFkqWVXsE3m zfuqw8lbovyoBpHzGIDr ETx2PXg2EYUsyQbwJjTy HHR5OpL4ZIW9wTNg rO1otEefsaifmY8eHwl+ KGU1WLM4NE19PH76W2Bj PjwvdGFibGU+PHRhYmxl IHdpZHRoPScxMDAl JyBz (more content not included)... Normal [facility] Consent for Procedure/Surger yon 09-03-2022 Consent for Procedure/Surgery [id number]#[id number]:127 Normal [facility] Discharge Instructionson Discharge Instructions [id number] 97#1.00CD:127 Normal [facility] Cardiovascular Reporton 08-08 Cardiovascular Report [id number]#1.00CD:127 [facility] Consent for Treatmenton 08-08 Consent for Treatment [id number] #[id number]:127 Normal [facility] Inpatient Clinical Summaryon 09-02-2022 Inpatient Clinical Summary [place] [id number] Clinical Summary Person Information: Name: JESSENIA WING Age: 51 Years : 1970 Sex: Female PCP: Pb BAUMAN DO Marital Status: Race: White Ethnicity: Non- or Language: Venezuelan Visit Id: Visit Reason: I82.893//US GUIDED INJECTION SCHLEROTHERAPY Speciality: Acuity: Enc Type: Ambulatory/Same Day Surgery Med Service: Surgery Arrival: 09/02/2022 11:55:38 Discharge: Dispo Type: Address: [address] [place] [address] [id number] Provider Notes: Diagnosis: Problems Active Tenderness of [...] Dover MD Follow up: With: Address: When: [address] [address] Business (1) 09/30/2022 10:30 AM Comments: Keep scheduled appointment Patient Education Information: CV - EVLT Discharge Instructions (Custom) [facility] Inpatient Patient Summaryon 09-02-2022 Inpatient Patient Summary [address] [address] Patient Discharge Instructions PERSON INFORMATION [...] results: None Follow up: With: Address: When: [address] [address] Business (1) 09/30/2022 10:30 AM Comments: Keep [...] concerns, call to speak with your doctor. [facility]: [phone]. Medication Leaflets: You may receive a survey from [employer] asking you to rate your care experience. Your feedback is important and will help us understand what we do well and how we can improve the quality of care we provide to you, your loved ones and our community. It?s an honor to serve you. Thank you for choosing [facility] Normal [facility] Operative Reporton Operative Report SURGERY DATE: [...] No complications. Rita Dover M.D. Dictated: 09/02/2022 [id number] Transcribed: 09/02/2022 [facility] Comment on above: Result Comment: Elec tronically [...] concerns, call to speak with your doctor. [facility]: [phone]. Normal [facility] Coding Summary.on 08-20-2022 Coding Summary. CD:[id number] Gh0bWw+PGhlYWQ+PE1FV WFoT43nwVMctK3VP1zVB Y5SZRPOGEUIVW0DJQ5zi KX4HGtyF5HsjoRd AisfbSFpEI44KCy1AVX5 kYxsEThtzB5azFIjA4d2 LtXdJF69jH23UHhmPKUf PrP1CmFlhcrzyWPi I6urKtExyWIsQku+PHRh YmxlIHdpZHRoPScxMDAl XfLrsWrvAQ6nQv9iOVGt LWNvbGxhcHNlOiBj a5nqWZLqZBnjNF6rqHzz Y2JtaFH5ZCIhd6t7Sa41 dHI+MLIbNJR1yZypGMgc l310IqRby6rrBFJ5 lOKkOUvcPZG0X97df8U0 WWAvJNRnTKQ2gHN2vI1c bSbypikoL6BkiHQqJiS5 BMP7cWGgpK1xkGjy bxjpdZ8aDdf+C35FJF6A ZYQTJW8NOvo9L3QrPnlb dHI+JS85JGMnFB55oDDs dWQjy3gmpVl3ZqQj AZYwIAE8iBkiOCifk6Ht HAQzH98oeKMcb1Y9LDSa hXkfvBRfLvDsbUK9mS9a YIellxrta7fgtxst Wvubf1autc88bU25B01o VQxtFMNqMSP2WPIyOGEi vJamum4ifG0jUy4+IDxj q2gas2vygMl5UeHf ISUzwvXfdRzsTMW2g2Ae Du30U0WeuUarm8EkHvc8 jl95uGWry6C1fVV5ZTdt DJErfH1nNTxmZaO0 JOPmGqDbwW10mBFdLEgl Lt3kyNcliBebVR5rVNDc gvihYKGsiH2pGSFntYIm pWzsSI3jEGNjccfi l744CnBuNER9NEEzyRDl B9UsxN7xMsBwEFPtEMVc V8FzaXOoBRwoF884PFnv QbL3TNDqjzKoD5Oa OPJfpHejIvR8l1Q3Yr2J l0TjytguDBZ1WJhsUBMw DnQ7HrJgZyY7D3NdGma2 AWNjyXkmSM4mP5Aj XWDitomeabdurHD0BWGi VVBrlT95eKZgHZcfJr7k c1P1j211HOJpPBVqvS44 Ns7koUhuKWSwyWFQ jO1slbahi0jnmpcaRwAb JJNtSBu9ICu7TWGesUzn VoDhRMZ8WjO6IXV9vPHk fF4pkNitwhbgfD3f Oyc+Q74ztN3oBXV3DWY8 aqwfEOHqzpUnYL63HA67 W0JoUlfguNYeyZD+PGRp tfMbtBzfBY2yRwUv u1ayj5VmTQlkY1QdFTPj KIlpEsh4RXKyDCJ8dFJ0 uC8xSGEiWKcen6G0aTR3 Q3MaayRpcm0mu9jv OGLmWLstT24mjUWdj4R0 ROPppKO5SNCxmIgfMqDa pH12Hmk+UPBliQhsj7Hc Oaaie0apv2jccZp8 IjMwJSIgdmFsaWduPSJ0 i7GjOn35Z45wRHmqWJKr XOHvVRPsIFDoyTfgwt1w hE0cWz1+PGNvbCB3 uLE0wT6cPBAjElX4AUst G712UgQijNCeMpkvl2ed z3jsmYg1KtScAFAqivLi uZkgLNU2v3RqVd74 R11pDRvtQKKkLXJoQCRr XWMbbSiqgs8tgL5cBr6+ YN1rg5tfvw56dW26jSV+ LKZuUKR4kNoyPPih BXHbhX3aBNipEqT3XDPp LcBnkO42jYXgNQagKa5g hFzzzPsgKB6qEGHaqqzf g921VeOhi2lzBYTc fWXkTSfjLOQ0F36df0L6 AUCcDFGlUZA2pLN3lK5s bGlnbjogbGVmdDsgdmVy bFlyVVqtDAcgS855 IHRvcDsnPlBhdGllbnQg BhNvSDb2E0RwFis1ILCv zAueFC5scAKqEJosYx1e sEyguSarPV2rBEVl vhcvu580ZdHez7vxWPAx yQJpGLwiJMX2K12zv0T8 QTCeGBLkLKG6qYM7aN8u bGlnbjogbGVmdDsg hoObvNsqOTlwZRczP306 IHRvcDsnPkJpcnRoIERh rPV0GM70LI34iDLyx9J2 uYW0U1ZhAHAotzfd zvvwwMG0BLNjUNZhhL14 Ti7gdQcxVt4oVUCpWQL7 XTYgsWFoO7WjqZ3iKgCl MXWdIVHhA8KfsWPn LHbeQ122BCrdVpS3FLSl rsYoM9ZjMRQwjLxaQxT7 d9V2Mo9XW9F0RV98HG32 iPCmu5I3zRV5B6Oz EENdjpytjqjvfHS0UIIa QNDffG83Uw6hlLnxHp8z PQZtXIB6ZPAmvRXfP8Yx fI8yNvFsHCLsPPVr D8PvjWLxVRsdW195QRrg NnH7HTWtrmFlK1FiBBCm yLfwBwA8h3X2Ie9BGCo5 JZ39CL37nJMzg4U7 jVH3P6BvGYPxcxbyelkt dXY5PNOpZBKwcN65Fc0r sYdcFc8sMPBeYGB9LSXs xQWnD6HayJ2vSlYn RFXqTBPwP5AuxJMbMEbi B419HDzySzZ9RQHmoaDg Q3BbGNEhwBisGdL2q5I4 Xl7OQFVvYM68GCU0 hBQ2CS07UU35E1PyKrld dGFibGU+PHRhYmxlIHdp ZHRoPScxMDAlJyBzdHls PM7rCd9aYWGoVHJa eLiqeUIhXiFci2pzGKGv DYeeOP6zbWuxF4SvdXE9 TZDlm0v5Is48X45dV1Ca dXA+GMWghEK2cNC7 iT8gQbAzPmV6PRldF605 RpTfxFJyQofxg3qif3ba fBd1DtS6WYIhyvSfzFff EFU6f1EnBd59F25h IHdpZHRoPSIxNSUiIHZh mHgljl6kmV3pXt6+PGNv cHW2uRB2xY9dOzNeIdS6 EJqaY205GnJeyXMl Hcqbd2mfy7fslTy6UoAk QZXqygDipWfmLWQ3k9Dq Sy13V8KaxDgps9TlKgo5 qg31cFIko6R1yLB4 V7DyCSRipehpwNAdcPpt DP8gQLUygnvfWFNlzE5k SIMrK0s3RiTfLpT0QStb K5SbhgI8XSPwzRGh EHgjSTT2A10jj3G1FWBk RIMvASB4cJZ5cR3ivPpx bjogbGVmdDsgdmVydGlj FJwbYZqoB632VKEa jRhoWGCoxC7qOPHfiOWx qXzvNM5lCBGzxhdoLbyK AHYGZwrcW7WPRUeJRddB ZX78R1AyKhd4WXBv kWieFN1ikBRdGTnaEo8n cHtiuKjyOI9mYQYugfxe KDIduA2hZVAfgSZidCxl QD1aXQPbgfrvv529 XyQnIHM4ICIusDXiB7Wa rE5nRnOhYBUkEPIqK6Vx sSBwVGsyJ719PTzoOcC3 ACAajkQaA0QiZELa eWrfLtW5p4V7He7zWj0j EV4oDItnOP92NI46yVYb l0L7wIT4Q3BuLGUhlpnl tqaxwXR6HOBvMKGf uA68jDXxGHxzTr3pg0U8 g207VTUsTYOliE09Yq9r dRsoPIKusQCPzL9cusuo h4nocjstYuJtRYRa LYc9CXi1ORGigPxjXkSn ARZ6GaS4VQN6bIJvkN5n zXinokekrP1iRob+NTAg PUQlmeV2D3MeSzc6 RGNgxHxnSL2mmOYiOIxo Jj9dhTuimYapGJ4cDHBd eaxgKBXfzK9gFWEjuNKz bWxvPH2fCCOolpqw t552YdMlXLL2JQNeySKx H6QbxA4oBhFfOLOxBWJd J1YsqYSbCThnF288TQfo GeW8FSNcrnSzG4Bd VRTyoJlzOgX9j3H6Dx4W VA0rqBP8B6XtNeo3UQOf nHwrVW3ngKSxLDamSu1d fYdyyWrfAE0iHKEa ypzcOJIxkY3cYDTvrXDz tDjlBX6rCZNfdykzh711 ObLvVYT9REWcsMJvV3Lb oF2pQvPdMFMsGTKg N1KzoXDrKIraT969SAoh WuH2AYYgqwJoD8AuYNYc bCboGiP8j7P8Wz5SoOFr MOKlSW60IB42RV02 W0HgOgvxdTUxlUS+PHRh YmxlIHdpZHRoPScxMDAl UzTjmJddVS4xCp6eDPIx LWNvbGxhcHNlOiBj u0pmOHIkSIkrCC0fmGih T2WywCQ0KTWgo0r0St92 F68wW9BaaRV+PGNvbCB3 kRF4hN2vJbKwQdT4 PFlfO150MjIneIXqNqtd s9yyd1nqnUw3SnXoSZTh zqInsUfqMMS6b7DbCw53 W65wBOkqEYGhTISe PYYmJPPkyDmfyt5rmY9m Ii8+HNGleRR7uOB1aV1b DcJfFzW3HYffV788HsEn xZOyWvzaZ44pT8Py dXA+DWLhGfu5EJNsjJvb YG5niPQhPAjvMi8bJGN6 GrLrDrDxZCrxN9JsQZCh qmcviunveZU9DMTj IPKncM00Fb9keGwjDy2j DIWmLLS1VUKbiSDkB4Vk tX5yXeOfIQUzZMGqK5Iq hPNzDYomK095XUtm QuU3UCYtdnLgB7YaTRIg sWsmOcM6w6J4As8ReOer zVGdDX2iSsGeZFr2A4Au Hhe4CZLqjFdiJH2p bRVyTOeoRv4vnXroyRpm CK0rURIwdmcwc613WhDe h8csJHXnsXKgYMwgGID3 N66cs8F4ZTPmIKFq ZCV1vYG5cL6dyAeetral bGVmdDsgdmVydGljYWwt RDnoY256QFWvoCamJwWI Mob9T5BrRkp3YHKj fRdsNP0edHXhDHnaXn4z aCykyEomLS3gIRHeesex j422KsMxi5grPDGczVQk SAeaDWL3R20ty1O2 PHSuZBYoNPZ8eQO7iE3p bGlnbjogbGVmdDsgdmVy iZhtCRzcEBnhO417TOXp vNguCp3YQta0S6Gi Wme7LXWooKhzNO5ppIVz BRwkMf5fnPnanYeaCO2f VYMqpmcqg930SsIay4gj IDEwcHQgVGltZXM7 L98vp0B4DZAfVXYcYFC0 tRV1gP6jeDznczfedOQw dDsgdmVydGljYWwtYWxp G020KJDayZsjUrCk eWVyOjwvdGQ+MP56lt08 J6JjMeqnZmi2JUBqFZP0 yGT4nB8eYXWiMOkxi7Z5 gLJ3Y5OrvzSmmq1j b2xs (more content not included)... Normal [facility] Pre-Certification Formon Pre-Certification Form [id number] #1.00CD:127 Normal [facility] Consent for Treatmenton Consent for Treatment [id number] #1.00CD:127 Normal [facility] Heart and Vascular Office/Cl inic Noteon [...] influenza virus vaccine, inactivated 03/2019 Recorded Normal [facility] Comment on above: Result Comment: Elec tronically Signed By: Stanislaw CROCKER, Rita Long\.br\Date and Time Signed: 08/08/22 15:58 EST Physician Orderon 08-08-2022 Physician Order [id number] #1.00CD:127 Normal [facility] CNOVon 02-22-2022 CNOV Office Visit (LOORRM) JESSENIA WING ([id number]) 1970 F Date Time Provider Department 02/22/22 [...] Recommend conservative treatment with activity modification, ice, ullc-tzl-qheoumd NSAID. If this becomes more significant she [...] (osteoarthritis) of (more content not included)... Normal [facility] XR KNEE 3V AP/LAT/MERCHANT L Ton [...] significant abnormality. ----- IMPRESSION: No acute findings. Cryptologic Supervisor: PSCB Transcribe Date/Time: Feb 22 2022 2:43P Dictated by : CANDY FORMAN MD This examination was interpreted and the report reviewed and electronically signed by: CANDY FORMAN MD on Feb 22 2022 2:47PM EST [id number] Normal [facility] XR KNEE POST OP 3V AP/LAT/ME RCHANT LEFTon 02-22-2022 [facility] HEMATOLOGYOrdered By: Eloina Tinoco on 11-14-2021 Erythrocyte [...] Anion gap [Moles/Vol] 12 mmol/L Normal 9-18 [facility] Comment on above: Performed By: #### C BC, BMP ####[place] [phone] Calcium [Mass/Vol] 8.5 mg/dL Normal 8.5-10.2 [facility] Comment on above: Performed By: #### C BC, BMP ####[place] [phone] Chloride [Moles/Vol] 104 mmol/L Normal 97-105 [facility] Comment on above: Performed By: #### C BC, BMP ####[place] [phone] CO2 [Moles/Vol] 23 mmol/L Normal 22-30 [facility] Comment on above: Performed By: #### C BC, BMP ####[place] [phone] Creatinine [Mass/Vol] 0.79 mg/dL Normal 0.58-0.96 [facility] Comment on above: Performed By: #### C BC, BMP ####[place] [phone] eGFR- Amer. >60 Normal >60 [facility] Comment on above: Performed By: #### C BC, BMP ####[place] [phone] eGFR-All Other Races >60 Normal >60 [facility] Comment on above: Result Comment: eGFR [...] GFR. Performed By: #### C BC, BMP ####[place] [address] [address] [phone] Glucose [Mass/Vol] 127 mg/dL High 74-99 [facility] Comment on above: Performed By: #### C ANMOL, BMP ####[facility] [address] Potassium [Moles/Vol] 4.6 mmol/L Normal 3.7-5.1 [facility] Comment on above: Performed By: #### C ANMOL, BMP ####[place] [address] [address] Sodium [Moles/Vol] 139 mmol/L Normal 136-144 [facility] Comment on above: Performed By: #### C ANMOL, BMP ####[facility] [address] [phone] Urea nitrogen [Mass/Vol] 12 mg/dL Normal 7-21 [facility] Comment on above: Performed By: #### Js COREA, BMP ####[place] [address] [address] [phone] CASE MANAGEMon 12-21-2020 CASE MANAGEM HNO ID: [id number] Author: Kirstie Mcfarlane RN Service: Case Management [...] recommended patient is agreeable to having [facility] to provide this service as they did following her initial knee surgery in November 2020. TRANSPORTATION ARRANGEMENTS: Transportation Arrangements: Car ADDITIONAL CONTACT RESOURCES Discharge home. No home care needs. SIGNATURE: Kirstie Mcfarlane RN PATIENT NAME: Jessenia Tovar [place] DATE: December 21, 2020 TIME: 1:01 PM PAGER/CONTACT #: [phone] [facility] CASE MGT INALICE [place] 2020 CASE MGT INIT POOJA HNO ID: [id number] Author: Kirstie Mcfarlane RN Service: Case Management [...] symptoms;To improve my functional status Health Insurance: [employer] Health Issues Impacting Discharge Plan: Chronic Chronic: htn, asmtha Last Discharge Date: 11/19/16 Is this Within the Past 30 days? Last discharge within 30 days: No Advance Directive: Current Advance Directive: Health Care Power of Microwave Remote Sensing Scientist In Chart: Yes Up To Date and [...] Walker Has the Patient Been in a Halfway Facility in the Past 30 days?: No SOCIAL: Living Arrangements: Home Lives With: Spouse Financial Resources: Employed Primary Contact: Extended Emergency Contact Information Primary Emergency Contact: Orlando Wing Address: [address] [place], [place] [id number] [place] [address] OF [employer] Mobile Relation: Spouse Supportive Patient [...] Completely I feel financially burdened by my lww-hp-wxqywj expenses for my prescription medication:: 0 - Disagree Completely Risk Score: 0 Patient is categorized as: Low risk < 2 Are you interested in bedside delivery of your medications? Yes Is Patient Psychosocially Complex?: No ASSESSMENT AND PLAN: Medical Needs: Medical Needs: None Psychosocial Needs: Psychosocial Needs: None FREEDOM OF CHOICE EXPLAINED: [place] of Choice Given: Yes Level of Care [...] 21, 2020 TIME: 9:30 AM PAGER/CONTACT #: [phone] Normal [facility] CBCon 12-21-2020 Absolute nRBC <0.01 Normal <0.01 [facility] Comment on above: Performed By: #### C [place] ####[facility] [phone] Erythrocyte distribution width (RBC) [Ratio] 15.4 % High 11.5-15.0 [facility] Comment on above: Performed By: #### C ANMOL, BMP ####[address] Hematocrit (Bld) [Volume fraction] 29.8 % Low 36.0-46.0 [facility] Comment on above: Performed By: #### C ANMOL, BMP ####[address] Hemoglobin (Bld) [Mass/Vol] 9.3 g/dL Low 11.5-15.5 [facility] Comment on above: Performed By: #### C ANMOL, BMP ####[address] MCH 26.9 pG Normal 26.0-34.0 [facility] Comment on above: Performed By: #### C ANMOL, BMP ####[address] MCHC (RBC) [Mass/Vol] 31.2 g/dL Normal 30.5-36.0 [facility] Comment on above: Performed By: #### C ANMOL, BMP ####[address] MCV (RBC) [Entitic vol] 86.1 fL Normal 80.0-100.0 [facility] Comment on above: Performed By: #### C ANMOL, BMP ####[address] Platelet mean volume (Bld) [Entitic vol] 10.6 fL Normal 9.0-12.7 [facility] Comment on above: Performed By: #### C ANMOL, BMP ####[address] Platelets (Bld) [#/Vol] 110 10*3/uL Low 150-400 [facility] Comment on above: Performed By: #### C ANMOL, BMP ####[address] RBC (Bld) [#/Vol] 3.46 10*6/uL Low 3.90-5.20 [facility] Comment on above: Performed By: #### C BC, BMP ####[facility] [phone] WBC (Bld) [#/Vol] 6.64 10*3/uL Normal 3.70-11.00 [facility] Comment on above: Performed By: #### C BC, BMP ####[facility] [phone] CNDSon 12-21-2020 CNDS HNO ID: [id number] Author: Stanley Bunch PA-C Service: Orthopaedic Surgery Author Type: Physician [employer]inter [employer] Type: Discharge Summary Filed: 12/21/2020 9:31 AM Note Text: Attestation signed by Rex Meredith Jr., MD at 12/21/2020 10:11 AM agree DISCHARGE SUMMARY Patient Name: Jessenia Wing : 1970 ADMISSION DATE: 12/20/2020 DISCHARGE DATE: 12/21/20 Attending Physician: Rex Meredith Jr., MD Primary Diagnosis: Failure of total knee replacement, 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[facility]) [T84.962A, Z96.461] Operations During Hospitalization: Procedure(s) (LRB): REVISION JOINT [...] Discharge Medications: Jessenia Wing Home Medication Instructions JOE:[id number] Printed on:12/21/20 5391 Medication Information acetaminophen (TYLENOL EXTRA STRENGTH) 500 [...] Dept Phone 01/11/2021 11:30 AM DEISY GONZALEZ [phone] SIGNATURE: Stanley Bunch PA-C PATIENT NAME: Jessenia Wing DATE: 12/21/2020 TIME: 9:31 AM PAGER/CONTACT #: [phone] [facility] CONSULT PROGon 12-21-2020 CONSULT PROG HNO ID: [id number] Author: Toan Can MD Service: General Internal [...] meaning may be extrapolated by contextual derivation [facility] THERAPY NTon 12-21-2020 THERAPY NT HNO ID: [id number] Author: Paige Stockton, OTR/L Service: Occupational Therapy Author Type: Occupational Therapist Type: Therapy (PT/OT/Speech/Resp) Filed: 12/21/2020 12:41 PM Note Text: Occupational Therapy Evaluation SERVICE DATE: 12/21/2020 SERVICE TIME: 1151 to 1206 ROOM: [place] [address] Recommended Discharge Disposition: Home Anticipated Discharge Needs: [...] Occupational Therapy Problem List: Safety Deficits;Impaired Self Skilled Nursing Environment Patient Lives With: Family Assistance Available: [...] living (ADL) Interventions Provided: Evaluation $ Evaluation-Low (93342) Billed Units: 1 unit Training AND education [...] DATE: December 21, 2020 TIME: 12:40 PM [facility] THERAPY NT HNO ID: [id number] Author: Kirsten Uriostegui, PT Service: Physical Therapy Author Type: Physical Therapist Type: Therapy (PT/OT/Speech/Resp) Filed: 12/21/2020 12:06 PM Note Text: Physical Therapy Evaluation SERVICE DATE: 12/21/2020 SERVICE TIME: 1059 to 1140 ROOM: [id number] Recommended Discharge Disposition: Outpatient Physical Therapy. Pt [...] walking-musculoskele carol Interventions Provided: Evaluation;Therapeut ic Exercise (88361);Gait Training (99921) $ Evaluation-Low (63898) Billed Units: 1 unit Therapeutic Exercise (50690) Treatment Minutes: 10 $ Therapeutic Exercise (07528) Billed Units: 1 unit Gai (more content not included)... [facility] ANES POSTPROC EVALon 021 ANES POSTPROC EVAL HNO ID: [id number] Author: Zeke Prajapati II, DO Service: Anesthesiology Author Type: Anesthesiologist Type: Anesthesia Postprocedure Evaluation Filed: 12/20/2020 4:27 PM Note Text: POST ANESTHESIA EVALUATION NOTE : 1970 Procedure Summary Date: 12/20/20 Room / Location: OR / [facility] OR Anesthesia Start: 1223 Anesthesia Stop: 1607 Procedure: REVISION JOINT TOTAL KNEE FEMORAL AND ENTIRE TIBIAL COMPONENT (Left Knee) Diagnosis: Failure of total knee replacement, 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[facility]) (Failure of total knee replacement, 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[facility]) [T84.018A, Z96.659]) Surgeons: Rex Meredith Jr., MD [...] December 20, 2020 TIME: 4:27 PM CSN: [id number] [facility] ANES PRE-OPon 12-20-2020 ANES PRE-OP HNO ID: [id number] Author: Adan Viera MD Service: Anesthesiology Author [...] December 20, 2020 TIME: 11:29 AM CSN: [id number] [facility] Anaerobe Cultureon Anaerobe Culture Culture Result - Negative for anaerobes. No Cutibacterium (Propionibacterium) acnes isolated. [facility] Comment on above: Performed By: #### A NACUL ####[facility] [place], [place] [phone] BRIEF OP NOTon 12-20-2020 BRIEF OP NOT HNO ID: [id number] Author: Rex Meredith Jr., MD Service: Orthopaedic Surgery Author Type: Physician Type: Brief Op Note Filed: 12/20/2020 3:24 PM Note Text: OPERATIVE/PROCEDURE REPORT LOG ID: [id number] SURGERY/PROCEDURE DATE: 12/20/2020 INCISION/PROCEDURE START TIME: 1:19 PM INCISION CLOSE/PROCEDURE END TIME: 1523 SURGEON(S)/PROCEDURA LIST(S) AND ROLL PLUGGER(S): Surgeon(s) and Role: * Rex Meredith Jr., MD - Primary Physician [employer]: Wilver Newebrry PA-C; Deisy Gonzalez PA-C SURGERY/PROCEDURE(S) : Left knee revision ANESTHESIA: Spinal SURGERY/PROCEDURE DETAILS: Left knee revision PRE-OP/PRE-PROCEDURE DIAGNOSIS: Aseptic loosening left knee revision POST-OP/POST-PROCEDU RE DIAGNOSIS: Same as Preop ESTIMATED BLOOD LOSS: 100 mls SPECIMENS: open cultures IMPLANTABLE DEVICES: [place] TS DRAINS: None COMPLICATIONS: None PARTICIPATION IN SURGERY/PROCEDURE: No qualified resident/fellow was available. I/primary surgeon/proceduralis t performed the entire procedure. SIGNATURE: Rex Meredith Jr, MD PATIENT NAME: Jessenia Wing DATE: December 20, 2020 TIME: 3:23 PM Normal [facility] Basic Metabolic Panlon 12-20 Anion gap [Moles/Vol] 10 mmol/L Normal 9-18 [facility] Comment on above: Performed By: #### C BC, BMP ####[place] [phone] Calcium [Mass/Vol] 8.5 mg/dL Normal 8.5-10.2 [facility] Comment on above: Performed By: #### C BC, BMP ####[address] Chloride [Moles/Vol] 111 mmol/L High 97-105 [facility] Comment on above: Performed By: #### C BC, BMP ####[place] [phone] CO2 [Moles/Vol] 23 mmol/L Normal 22-30 [facility] Comment on above: Performed By: #### C BC, BMP ####[place] [phone] Creatinine [Mass/Vol] 0.73 mg/dL Normal 0.58-0.96 [facility] Comment on above: Performed By: #### C BC, BMP ####[place] [phone] eGFR- Amer. >60 Normal >60 [facility] Comment on above: Performed By: #### C BC, BMP ####[address] eGFR-All Other Races >60 Normal >60 [facility] Comment on above: Result Comment: eGFR [...] GFR. Performed By: #### C ANMOL, BMP ####[address] Glucose [Mass/Vol] 140 mg/dL High 74-99 [facility] Comment on above: Performed By: #### C BC, BMP ####[address] Potassium [Moles/Vol] 5.0 mmol/L Normal 3.7-5.1 [facility] Comment on above: Performed By: #### C BC, BMP ####[address] Sodium [Moles/Vol] 144 mmol/L Normal 136-144 [facility] Comment on above: Performed By: #### C BC, BMP ####[address] Urea nitrogen [Mass/Vol] 9 mg/dL Normal 7-21 [facility] Comment on above: Performed By: #### C BC, BMP ####[place] [phone] CBCon 12-20-2020 Absolute nRBC <0.01 Normal <0.01 [facility] Comment on above: Performed By: #### C BC, BMP ####[place] [phone] Erythrocyte distribution width (RBC) [Ratio] 15.8 % High 11.5-15.0 [facility] Comment on above: Performed By: #### C ANMOL, BMP ####[place] [phone] Hematocrit (Bld) [Volume fraction] 33.1 % Low 36.0-46.0 [facility] Comment on above: Performed By: #### C ANMOL, BMP ####[place] [phone] Hemoglobin (Bld) [Mass/Vol] 10.4 g/dL Low 11.5-15.5 [facility] Comment on above: Performed By: #### C ANMOL, BMP ####[place] [phone] MCH 27.2 pG Normal 26.0-34.0 [facility] Comment on above: Performed By: #### C ANMOL, BMP ####[address] MCHC (RBC) [Mass/Vol] 31.4 g/dL Normal 30.5-36.0 [facility] Comment on above: Performed By: #### C ANMOL, BMP ####[address] MCV (RBC) [Entitic vol] 86.4 fL Normal 80.0-100.0 [facility] Comment on above: Performed By: #### C ANMOL, BMP ####[place] [phone] Platelet mean volume (Bld) [Entitic vol] 11.0 fL Normal 9.0-12.7 [facility] Comment on above: Performed By: #### C ANMOL, BMP ####[address] Platelets (Bld) [#/Vol] 120 10*3/uL Low 150-400 [facility] Comment on above: Performed By: #### C ANMOL, BMP ####[facility] [phone] RBC (Bld) [#/Vol] 3.83 10*6/uL Low 3.90-5.20 [facility] Comment on above: Performed By: #### C BC, BMP ####[facility] [phone] WBC (Bld) [#/Vol] 6.04 10*3/uL Normal 3.70-11.00 [facility] Comment on above: Performed By: #### C BC, BMP ####[facility] [phone] CONSULTon 12-20-2020 CONSULT HNO ID: [id number] Author: Toan Can MD Service: General Internal [...] 12/20/20 1630 102/ (more content not included)... [facility] NURSING PROGon 12-20-2020 NURSING PROG HNO ID: [id number] Author: Cherie Rose RN Service: Nursing Author Type: Registered Nurse Type: Nursing Progress Note Filed: 12/20/2020 5:21 PM Note Text: Nursing Progress Note Patient Name: Jessenia Srivastavar Patient Location: [address]/[facility] D- Transfer Note: Patient transferred into room/unit 502-2 in stable condition. Actions taken: Patient and family oriented to 5D unit policies and procedures. Educated on falls risks, falls precautions, and use of call almeida prior to getting OOB. Patient resting in bed. Call light within reach. All needs met at this time. This note was completed by: Cherie Rose [facility] OPERATIVE NOon 12-20-2020 OPERATIVE NO HNO ID: [id number] Author: Rex Meredith Jr., MD Service: Orthopaedic Surgery Author Type: Physician Type: Operative Report Filed: 12/21/2020 8:04 AM Note Text: OPERATIVE/PROCEDURE REPORT LOG ID: [id number] SURGERY/PROCEDURE DATE: 12/20/2020 INCISION/PROCEDURE START TIME: 1:19 PM INCISION CLOSE/PROCEDURE END TIME: 3:54 PM SURGEON(S)/PROCEDURA LIST(S) AND ROLL PLUGGER(S): Surgeon(s) and Role: * Rex Meredith Jr., MD - Primary Physician [employer]: Wilver Newberry PA-C; Deisy Gonzalez PA-C - Aline was office administrative assistant; his assistance consisted of assistance with positioning, retraction and closing the wound SURGERY/PROCEDURE(S) : Left total knee revision ANESTHESIA: Spinal SURGERY/PROCEDURE DETAILS: Left total knee revision PRE-OP/PRE-PROCEDURE DIAGNOSIS: 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 The femur consisted of a size [...] (more content not included)... Normal [facility] SURGICAL PATHOLOGYon 021 SURGICAL PATHOLOGY Specimen originated from [facility] Specimen #: [id number] Submitting Physician: REX MEREDITH JR, MD FINAL DIAGNOSIS Hardware, left knee, removal - Unremarkable hardware (gross examination only). APH/KVB/lbk 12/21/2020 Gaston Florez M.D. (Electronic Signature) SPECIMEN SUBMITTED A: REMOVED HARDWARE FROM LEFT KNEE CLINICAL DATA FAILURE OF TOTAL KNEE REPLACEMENT, INITIAL ENCOUNTER ([facility]); LEFT TOTAL KNEE REVISION GROSS DESCRIPTION [...] on the polyethylene articular insert saying LEFT [id number] . No tissue is present. No sections are submitted. The specimen is for gross examination only. The specimen is reviewed by Dr. Florez. Gross examination performed at [facility], [address] [place] [address] KVB/lbk 12/21/2020 Date of Report: 12/22/2020 Date of Procedure: 12/20/2020 Date of Receipt: 12/20/2020 Submitted by: REX MEREDITH JR, MD Location: [facility] Diagnostic interpretation performed at [facility], [address] [place] [address], [place] [address]. CLIA Number: [id number] [facility] Wound Culture/Stainon 2020 Wound Culture/Stain Sp. Request/Comment: - Specimen received in anaerobic transport medium. Smear Result - No organisms seen No Polymorphonuclear Leukocytes Culture Result - No growth 2 days [facility] Comment on above: Performed By: #### W CUL ####[facility] HOC[address] [place], [place] [address]EhccqzxsoHol[facility] System [address] [place], [place] [phone] Type and SCR (30D)on 021 ABO/RH(D) Positive Normal [facility] Comment on above: Performed By: #### T SCR30 ####[facility] [phone] Large Joint Arthro/Inj: R kn ee joint [facility] Vital Signs Date Time Vital Sign Value Performing Clinician Faci litzuleika 06-27-2023 10:58-0500 Diastolic blood pressure 96 mm[Hg] DIANA CEJA [facility] [place] 06-27-2023 10:58-0500 Mean blood pressure 107 mm[Hg] DIANA CEJA [facility] [place] 06-27-2023 10:58-0500 Systolic blood pressure 130 mm[Hg] DIANA CEJA [facility] [place] 06-27-2023 10:47-0500 Diastolic blood pressure 92 mm[Hg] DIANA CEJA [facility] [place] 06-27-2023 10:47-0500 Mean blood pressure 104 mm[Hg] DIANA CEJA [facility] [place] 06-27-2023 10:47-0500 Systolic blood pressure 128 mm[Hg] DIANA CEJA [facility] [place] 06-27-2023 10:29-0500 Blood Pressure Location DIANA CEJA [facility] [place] 06-27-2023 10:29-0500 Body temperature 97.88 [degF] DIANA CEJA [facility] [place] 06-27-2023 10:29-0500 Diastolic blood pressure 64 mm[Hg] DIANA CEJA [facility] [place] 06-27-2023 10:29-0500 Heart rate 77 /min DIANA CEJA [facility] [place] 06-27-2023 10:29-0500 Respiratory rate 24 /min DIANA CEJA [facility] [place] 06-27-2023 10:29-0500 SaO2% (BldA) [Mass fraction] 98 % DIANA CEJA [facility] [place] 06-27-2023 10:29-0500 Systolic blood pressure 116 mm[Hg] DIANA CEJA [facility] [place] 06-26-2023 20:47-0500 Diastolic blood pressure 104 mm[Hg] Everardo Dilma [facility] 06-26-2023 20:47-0500 Heart rate 98 /min Everardo Dilma [facility] 06-26-2023 20:47-0500 Mean blood pressure 125 mm[Hg] Everardo Dilma [facility] 06-26-2023 20:47-0500 Respiratory rate 18 /min Everardo Dilma [facility] 06-26-2023 20:47-0500 SaO2% (BldA) [Mass fraction] 97 % Everardo Dilma [facility] 06-26-2023 20:47-0500 Systolic blood pressure 166 mm[Hg] Everardo Dilma [facility] 06-26-2023 20:25-0500 Diastolic blood pressure 119 mm[Hg] Everardo Dilma [facility] 06-26-2023 20:25-0500 Heart rate 92 /min Everardo Dilma [facility] 06-26-2023 20:25-0500 Hourly Rounding Everardo Dilma [facility] 06-26-2023 20:25-0500 Mean blood pressure 139 mm[Hg] Everardo Dilma [facility] 06-26-2023 20:25-0500 Respiratory rate 21 /min Everardo Dilma [facility] 06-26-2023 20:25-0500 SaO2% (BldA) [Mass fraction] 97 % Everardo Dilma [facility] 06-26-2023 20:25-0500 Systolic blood pressure 180 mm[Hg] Everardo Dilma [facility] 06-26-2023 20:17-0500 Diastolic blood pressure 119 mm[Hg] Everardo Dilma [facility] 06-26-2023 20:17-0500 Systolic blood pressure 180 mm[Hg] Everardo Dilma [facility] 06-26-2023 19:25-0500 Heart rate 86 /min Everardo Dilma [facility] 06-26-2023 19:25-0500 Hourly Rounding Everardo Hatche [facility] 06-26-2023 19:25-0500 Mean blood pressure 151 mm[Hg] Everardo Dilma [facility] 06-26-2023 19:25-0500 Promise to Return Everardo Dilma [facility] 06-26-2023 19:25-0500 Respiratory rate 17 /min Everardo Perera [facility] 06-26-2023 19:25-0500 SaO2% (BldA) [Mass fraction] 98 % Everardo Perera [facility] 06-26-2023 18:37-0500 Body temperature 98.24 [degF] Everardo Perera [facility] 06-26-2023 18:37-0500 Heart rate 99 /min Everardo Perera [facility] 06-26-2023 18:37-0500 Respiratory rate 16 /min Everardo Perera [facility] 03-05-2023 15:25-0400 Diastolic blood pressure 96 mm[Hg] Morena Soham [facility] 03-05-2023 15:25-0400 Mean blood pressure 111 mm[Hg] Morena Soham [facility] 03-05-2023 15:25-0400 Systolic blood pressure 140 mm[Hg] Morena Soham [facility] 03-05-2023 15:09-0400 Diastolic blood pressure 116 mm[Hg] Morena Soham [facility] 03-05-2023 15:09-0400 Mean blood pressure 127 mm[Hg] Morena Soham [facility] 03-05-2023 15:09-0400 Systolic blood pressure 149 mm[Hg] Morena Soham [facility] 03-05-2023 15:06-0400 Blood Pressure Location Morena Soham [facility] 03-05-2023 15:06-0400 Body temperature 97.52 [degF] Morena Rousseau [facility] 03-05-2023 15:06-0400 Diastolic blood pressure 103 mm[Hg] Morena Hinesmetz [facility] 03-05-2023 15:06-0400 Heart rate 73 /min Morena Hinesmetz [facility] 03-05-2023 15:06-0400 Systolic blood pressure 142 mm[Hg] Morena Hinesmetz [facility] 02-05-2023 13:54-0400 Blood Pressure Location Parker SALAM [facility] 02-05-2023 13:54-0400 Diastolic blood pressure 114 mm[Hg] Parker SALAM [facility] 02-05-2023 13:54-0400 Heart rate 64 /min Parker SALAM [facility] 02-05-2023 13:54-0400 Respiratory rate 21 /min Parker SALAM [facility] 02-05-2023 13:54-0400 SaO2% (BldA) [Mass fraction] 100 % Parker SALAM [facility] 02-05-2023 13:54-0400 Systolic blood pressure 155 mm[Hg] Parker SALAM [facility] 02-05-2023 13:44-0400 Blood Pressure Location Parker SALAM [facility] 02-05-2023 13:44-0400 Diastolic blood pressure 94 mm[Hg] Parker SALAM [facility] 02-05-2023 13:44-0400 Heart rate 62 /min Parker SALAM [facility] 02-05-2023 13:44-0400 Respiratory rate 19 /min Parker SALAM [facility] 02-05-2023 13:44-0400 SaO2% (BldA) [Mass fraction] 99 % Parker SALAM [facility] 02-05-2023 13:44-0400 Systolic blood pressure 149 mm[Hg] Parker SALAM [facility] 02-05-2023 13:39-0400 Blood Pressure Location Parker SALAM [facility] 02-05-2023 13:39-0400 Diastolic blood pressure 94 mm[Hg] Parker SALAM [facility] 02-05-2023 13:39-0400 Heart rate 64 /min Parker SALAM [facility] 02-05-2023 13:39-0400 Respiratory rate 12 /min Parker SALAM [facility] 02-05-2023 13:39-0400 SaO2% (BldA) [Mass fraction] 99 % Parker SALAM [facility] 02-05-2023 13:39-0400 Systolic blood pressure 138 mm[Hg] Parker SALAM [facility] 02-05-2023 13:29-0400 Body temperature 97.16 [degF] Parker SALAM [facility] 02-05-2023 13:25-0400 Respiratory rate 18 /min Parker SALAM [facility] 02-05-2023 13:20-0400 Respiratory rate 18 /min Parker SALAM [facility] 02-05-2023 13:15-0400 Respiratory rate 16 /min Parker SALAM [facility] 02-05-2023 12:18-0400 Body temperature 97.88 [degF] Parker SALAM [facility] 12-25-2022 10:32-0400 Body height 167.6 cm Marko Torreuh PA-C Work Phone: [facility] 12-25-2022 10:32-0400 Body weight 106.05 kg Marko Bandsuh PA-C Work Phone: [facility] 12-25-2022 10:32-0400 Diastolic blood pressure 78 mm[Hg] Marko Bandsuh PA-C Work Phone: [facility] 12-25-2022 10:32-0400 Heart rate 60 /min Marko Bandsuh PA-C Work Phone: [facility] 12-25-2022 10:32-0400 Systolic blood pressure 112 mm[Hg] Marko Bandsuh PA-C Work Phone: [facility] 12-18-2022 09:27-0400 Blood Pressure Location Parker SALAM [facility] 12-18-2022 09:27-0400 Diastolic blood pressure 85 mm[Hg] Parker SALAM [facility] 12-18-2022 09:27-0400 Heart rate 66 /min Parker SALAM [facility] 12-18-2022 09:27-0400 Respiratory rate 16 /min Parker SALAM [facility] 12-18-2022 09:27-0400 SaO2% (BldA) [Mass fraction] 96 % Parker SALAM [facility] 12-18-2022 09:27-0400 Systolic blood pressure 121 mm[Hg] Parker SALAM [facility] 10-25-2022 14:31-0400 Blood Pressure Location ANA SIDELL [facility] [place] 10-25-2022 14:31-0400 Body temperature 98.06 [degF] ANA SIDELL [facility] [place] 10-25-2022 14:31-0400 Diastolic blood pressure 82 mm[Hg] ANA SIDELL [facility] [place] 10-25-2022 14:31-0400 Heart rate 81 /min ANA SIDELL [facility] [place] 10-25-2022 14:31-0400 SaO2% (BldA) [Mass fraction] 98 % ANA SIDELL [facility] [place] 10-25-2022 14:31-0400 Systolic blood pressure 144 mm[Hg] ANA SIDELL [facility] [place] 08-08-2022 15:51-0500 Diastolic blood pressure 97 mm[Hg] Rita Stanislaw [facility] 08-08-2022 15:51-0500 Mean blood pressure 111 mm[Hg] Mohamed Stanislaw [facility] 08-08-2022 15:51-0500 Systolic blood pressure 139 mm[Hg] Mohamed Stanislaw [facility] 08-08-2022 15:39-0500 Blood Pressure Location Mohamed Stanislaw [facility] 08-08-2022 15:39-0500 Diastolic blood pressure 94 mm[Hg] Mohamed Stanislaw [facility] 08-08-2022 15:39-0500 Heart rate 72 /min Rita Dover [facility] 08-08-2022 15:39-0500 SaO2% (BldA) [Mass fraction] 98 % Rita Dover [facility] 08-08-2022 15:39-0500 Systolic blood pressure 137 mm[Hg] Rita Dover [facility] 05-16-2022 14:27-0500 Blood Pressure Location Rita Dover [facility] 05-16-2022 14:27-0500 Diastolic blood pressure 86 mm[Hg] Rita Dover [facility] 05-16-2022 14:27-0500 Heart rate 71 /min Rita Dover [facility] 05-16-2022 14:27-0500 SaO2% (BldA) [Mass fraction] 98 % Rita Dover [facility] 05-16-2022 14:27-0500 Systolic blood pressure 120 mm[Hg] Rita Dover [facility] 11-06-2021 13:52-0400 Body temperature 98.42 [degF] [facility] 11-06-2021 13:52-0400 Diastolic blood pressure 90 mm[Hg] [facility] 11-06-2021 13:52-0400 Heart rate 59 /min [facility] 11-06-2021 13:52-0400 SaO2% (BldA) [Mass fraction] 96 % [facility] 11-06-2021 13:52-0400 Systolic blood pressure 120 mm[Hg] Levon Webber [facility] Encounters Encounter Date Encounter Type Care Provider Facility Start: 07-18-2023 End: 07-18-2023 Patient encounter procedure DIANA CEJA [facility] Start: 06-27-2023 End: 06-28-2023 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 DIANA CEJA Facility:[facility] Start: 06-27-2023 End: 06-27-2023 Patient encounter procedure DIANA CEJA [facility] [place] Start: 06-26-2023 End: 06-26-2023 Emergency department patient visit Everardo Perera Facility:[facility] Start: 06-26-2023 End: 06-26-2023 Emergency department patient visit Everardo Perera [facility] Start: 06-26-2023 End: 06-27-2023 ambulatory SELF REFERRAL Facility:[facility] Start: 06-26-2023 End: 06-26-2023 Patient encounter procedure Everardo Davis [facility] Start: 06-05-2023 End: 06-06-2023 ambulatory Morena Rousseau [facility] Start: 06-05-2023 End: 06-05-2023 Patient encounter procedure Morena A Soham [facility] Start: 03-05-2023 End: 03-06-2023 ambulatory Morena A Soham [facility] Start: 03-05-2023 End: 03-05-2023 Patient encounter procedure Morena A Soham [facility] Start: 02-05-2023 End: 02-06-2023 ambulatory Parker [facility] Facility:[facility] Start: 02-05-2023 End: 02-05-2023 Patient encounter procedure Keith MARTIN [facility] Start: 12-25-2022 End: 12-25-2022 ambulatory MARKO TORRE Facility:[facility] Start: 12-25-2022 End: 12-25-2022 Patient encounter procedure Marko Torre PA-C Work Phone: Orthopedics Comment on above: S/P revision of tota l knee, left (Primary Dx); Primary osteoarthritis of right knee Start: 12-18-2022 End: 12-19-2022 ambulatory Parker [facility] [place] [facility] Start: 12-18-2022 End: 12-18-2022 Patient encounter procedure [facility] Start: 12-16-2022 End: 12-17-2022 ambulatory Sri PUGA Facility:[facility] Start: 12-16-2022 End: 12-17-2022 ambulatory Sri PUGA Facility:[facility] Start: 11-22-2022 End: 11-23-2022 ambulatory ANA CHÁVEZ Facility:[facility] Start: 11-03-2022 End: 11-04-2022 ambulatory Kimmy Scott Facility:[facility] Start: 10-28-2022 ambulatory Keith CHUNG Facility: [facility] Start: 10-25-2022 End: 10-26-2022 ambulatory ANA CHÁVEZ Facility:[facility] Start: 10-25-2022 End: 10-25-2022 Patient encounter procedure ANA CHÁVEZ [facility] [place] Start: 09-02-2022 End: 09-02-2022 ambulatory Rita Dover Facility:[facility] Start: 09-02-2022 End: 09-02-2022 Admission to same day surgery center Rita Dover [facility] Start: 08-08-2022 End: 08-09-2022 ambulatory Rita Dover Facility:[facility] Start: 08-08-2022 End: 08-08-2022 Patient encounter procedure Rita Dover [facility] Start: 05-29-2022 End: 05-29-2022 Patient encounter procedure Jerel Banks [facility] Start: 05-20-2022 End: 05-20-2022 Patient encounter procedure Jerel Banks [facility] Start: 05-16-2022 End: 05-16-2022 Patient encounter procedure Rita Dover [facility] Start: 02-22-2022 End: 02-22-2022 Orders Only Augustus Pereira MD Work Phone: Orthopaedics Comment on above: S/P revision of tota l knee, left (Primary Dx) Start: 11-14-2021 End: 11-14-2021 Patient encounter procedure [facility] [facility] Start: 11-06-2021 End: 11-06-2021 Patient encounter procedure Levon Webber [facility] Start: 11-06-2021 End: 11-06-2021 [facility] Procedures Date Procedure Procedure Detail [...] above: Performed By: #### [id number] ####Mele Maldonado [id number] [address] [phone] Start: 10-05-2020 Injection of sclerosing agent Levon [...] BP CONTROLLED (<130/80) BP CONTROLLE D (<130/80) [facility] Start: 12-22-2023 DIABETES SCREEN DIABETES SCREEN [facility] Start: 07-07-2022 DEPRESSION ASSESSMENT DEPRESSION ASS ESSMENT [facility] Start: 03-07-2022 Influenza vaccination INFLUENZA (#1) [facility] Start: 12-12-2021 COVID-19 VACCINE (4 - Booster for Pfizer series) COVID-19 VACCINE (4 - Booster for Pfizer series) [facility] Start: 12-12-2021 SHINGRIX VACCINE (1 of 2) SHINGRIX V ACCINE (1 of 2) [facility] Start: 09-10-2021 COVID-19 VACCINE (4 - Booster for Pfizer series) COVID-19 VACCINE (4 - Booster for Pfizer series) [facility] Start: 12-12-2016 COLOGUARD (FIT-DNA) COLOGUARD (FIT-D NA) [facility] Start: 12-12-2016 Colonoscopy COLONOSCOPY [facility] Start: 12-12-2016 COLORECTAL CANCER SCREENING COLORECTAL CANCER SCREENING [facility] Start: 12-12-[address] COLONOGRAPHY [facility] Start: 12-12-2016 FECAL OCCULT BLOOD FECAL OCCULT BLOO D [facility] Start: 12-12-2016 LIPID SCREEN LIPID SCREEN [facility] Start: 12-12-2016 SIGMOIDOSCOPY SIGMOIDOSCOPY [facility] Start: 2011 Mammography MAMMOGRAM [facility] Start: 12-12-2001 HPV TESTING HPV TESTING [facility] Start: 12-12-1992 PAP TESTING PAP TESTING [facility] Start: 12-12-1990 Urine microalbumin profile DTAP,TDAP ,TD (1 - Tdap) [facility] Start: 12-12-1989 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 DISEASE VISIT ANNUAL PCP TEAM CHRONIC DISEASE VISIT [facility] Start: 12-12-1989 BP CONTROLLED (<130/80) BP CONTROLLE D (<130/80) [facility] Start: 12-12-1989 HEPATITIS C SCREENING HEPATITIS C SC REENING [facility] Start: 12-12-1989 HIV SCREENING HIV SCREENING [facility] Start: 12-12-1989 SPIROMETRY SPIROMETRY [facility] Start: 1983 Adult depression scr eening assessment DEPRESSION SCREENING [facility] Start: 12-12-1977 PNEUMOCOCCAL (1 - PCV) PNEUMOCOCCAL (1 - PCV) [facility] Start: 1971 HEPATITIS B (1 of 3 - 3-dose series) HEPATITIS B (1 of 3 - 3-dose series) [facility] Immunizations Immunization Date Immunization Notes Care Provider Fa cility 03-11-2023 influenza virus vaccine, unspecified formulation Morena Rousseau [facility] 03-12-2022 influenza virus vaccine, unspecified formulation Keith CHUNG [facility] 07-16-2021 SARS-CoV-2 mRNA (amdexyzvwgw-drlq-kunho se) vaccine Keith CHUNG [facility] 04-03-2021 influenza virus vaccine, unspecified formulation [facility] 09-08-2020 SARS-CoV-2 (COVID-19 ) mRNA BNT-162b2 vax [facility] 08-18-2020 SARS-CoV-2 (COVID-19 ) mRNA BNT-162b2 vax [facility] 03-07-2019 influenza virus vaccine, unspecified formulation [facility] Payers Date Payer Category Payer Unknown [id number] 2011 Unknown [id number] 2011 Unknown [id number] 1971 Unknown [id number] 2.16.8 [id number]. 1971 Unknown [id number] 2.16.8 40.1.730285.3.579.2. 1971 Unknown [id number] 2.16.8 40.1.790964.3.579.2.7 1971 Unknown [id number] 2.16.8 40.1.100660.3.579.2.727 1971 Unknown [id number] 2.16.8 40.1.063710.3.579.2. 1971 Unknown [id number] 2.16.8 40.1.491354.3.579.2. 1971 Unknown [id number] 2.16.8 40.1.680511.3.579.2.7 1971 Unknown [id number] 2.16.8 40.1.682011.3.579.2. 1971 Unknown [id number] 2.16.8 40.1.405594.3.579.2.727 1971 Unknown [id number] 2.16.8 40.1.230638.3.579.2.727 1971 Unknown [id number] 2.16.8 40.1.521003.3.579.2.727 1971 Unknown [id number] 2.16.8 40.1.721617.3.579.2.727 1971 Unknown [id number] 2.16.8 40.1.642147.3.579.2.727 1971 Unknown [id number] 2.16.8 40.1.544105.3.579.2.727 Social History Date Type Detail Facility Start: 11-06-2021 End: 06-27-2023 Tobacco smoking status Never smoked tobacco (finding) [facility] Comment on above: Denies Tobacco smoking status Never [facility] Comment on above: Denies Sex Assigned At Female [facility] Start: 11-19-2011 Tobacco use and exposure Smokeless tobacco non-user [facility] Start: 12-20-2020 End: 12-25-2022 Alcohol intake Current drinker of alcohol (finding) [facility] Start: 11-30-2020 History SDOH Alcohol Comment social-weekends [facility] Start: 1970 Sex Assigned At Not on file C [facility] Start: 02-12-2022 End: 02-22-2022 Exposure to SARS-CoV-2 (event) Not sure [facility] Medical Equipment Procedure Code Equipment Code Equipment Origin al Text Equipment Identifier Dates Fidencio Bn Smplx Hv Gentamicin Fd - [id number] Start: 11-18-2016 Cement Simplex P Tobramycin Bone Full Dose Radiopaque Preblend Sterile - [id number] Start: 12-20-2020 Surface 6-9 Cd Vivacit-E 11mm Articular Knee - [id number] Start: 11-18-2016 Extension Triath luisana 25mm Stem Total Stabilize Knee Femur - [id number] Start: 12-20-2020 Baseplate Person a 5d D Tivanium Tibial Cemented Stem Knee Left - [id number] Start: 11-18-2016 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 - [id number] Start: 12-20-2020 Functional Status Date Assessment Result Facility 06-27-2023 Functional Status N/A [facility] 06-26-2023 Functional Status N/A [facility] 03-05-2023 Functional Status N/A [facility] 02-05-2023 Functional Status N/A [facility] 12-18-2022 Functional Status N/A [facility] 10-25-2022 Functional Status N/A [facility] 08-08-2022 Functional Status No [facility] 05-16-2022 Functional Status No [facility] Clinical Notes 11-18-2016 to 06-27-2023 [...] are safe for you. General instructions Take veja-kso-rksstau and prescription medicines only as told by [...] provider. Document Revised: 10/11/2020 Document Reviewed: 12/21/2019 [employer] Patient Education 2022 [employer]. 06/27/2023 12:02:19 Cough, Adult Cough, Adult Coughing [...] Follow these instructions at home: Medicines Take exag-xkh-gbueagm and prescription medicines only as told by [...] of a condition that needs treatment. Take rlpv-rwo-cfnmury and prescription medicines only as told by [...] provider. Document Revised: 07/12/2019 Document Reviewed: 07/12/2019 [employer] Patient Education 2022 [employer]. [facility] [place] 06-26-2023 Hospital Discharge instructions Patient Education 06/26/2023 [...] more information National Heart, [facility] [place]: www.nhlbi.nih.gov [place] [employer]: www.heart.org Contact a health care [...] provider. Document Revised: 03/07/2022 Document Reviewed: 03/07/2022 [employer] Patient Education 2022 [employer]. 06/26/2023 20:53:28 Migraine Headache Migraine Headache A [...] Follow these instructions at home: Medicines Take wqgi-nwu-vihhmiu and prescription medicines only as told by your health care provider. Ask your health care provider if the medicine prescribed to you: ?Requires you to avoid driving or using heavy machinery. ?Can cause constipation. You may need to take these actions to prevent or treat constipation: ?Drink enough fluid to keep your urine pale yellow. ?Take mtvd-okg-htbmayj or prescription medicines. ?Eat foods that are [...] provider. Document Revised: 10/15/2019 Document Reviewed: 08/05/2019 [employer] Patient Education 2022 [employer]. Follow Up Care 06/26/2023 18:32:26 With:Pb BAUMAN Address: [address] [place] [address] [place] [address]- [phone] Business (1) When:06/29/2023 20:47:03 Comments:Follow-up with your primary care provider in 3 to 5 days. If symptoms worsen, do not improve, or new symptoms arise please report back to emergency department for further evaluation. Continue to monitor your blood pressure, and you may start 20 mg of lisinopril daily. [facility] 03-05-2023 Hospital Discharge instructions Patient Education [...] overweight. Not getting enough exercise. Smoking. Taking nkar-rei-fhtnjzs pain medicines, like aspirin and ibuprofen. Having [...] Follow these instructions at home: Medicines Take oick-akn-jzbrsaa and prescription medicines only as told by your health care provider. If told by your health care provider, take a fiber supplement or probiotic. Constipation prevention Your condition may cause constipation. To prevent or treat constipation, you may need to: Drink enough fluid to keep your urine pale yellow. Take rseg-swr-myzawzr or prescription medicines. Eat foods that are [...] provider. Document Revised: 01/20/2020 Document Reviewed: 01/20/2020 [employer] Patient Education 2022 [employer]. 03/05/2023 15:03:18 Peptic Ulcer Peptic Ulcer A [...] quitting, ask your health care provider. Take vwec-uzv-nkzzcru and prescription medicines only as told by your health care provider. ?Do not use lxlr-hwr-yyhylnj medicines in place of prescription medicines unless [...] quitting, ask your health care provider. Take pimd-euz-bolzihf and prescription medicines only as told by your health care provider. Do not use ysxa-lel-aolwsby medicines in place of prescription medicines unless your health care provider approves. Limit your alcohol and caffeine intake. Keep all follow-up visits. This is important. This information is not intended to replace advice given to you by your health care provider. Make sure you discuss any questions you have with your health care provider. Document Revised: 02/01/2022 Document Reviewed: 02/01/2022 [employer] Patient Education 2022 [employer]. Follow Up Care 02/19/2023 08:31:55 With:Morena Rousseau CNP Address: When:3 months [facility] 02-06-2023 Note [id number]:127 [facility] 02-05-2023 Hospital Discharge instructions Patient Education [...] what activities are safe for you. Take smfi-sya-djeiyqt and prescription medicines only as told by [...] provider. Document Revised: 04/28/2020 Document Reviewed: 11/23/2018 [employer] Patient Education 2022 [employer]. 02/05/2023 13:36:26 Colonoscopy, Care After Surgery Salam [...] unsweetened, w/added ascorbic acid 1 cup 0.5 Edmonson 1 cup 0.7 Vegetables Cooked Green beans 1 cup 4.0 Carrots 1/2 cup sliced 2.3 Peas 1 cup 8.8 Potato (baked, with skin) 1 medium potato 3.8 Raw Filer (with peel) 1 cucumber 1.5 Lettuce 1 [...] 8.7 Peanuts 1/2 cup 7.9 Chart from [facility] 2013. SEEK IMMEDIATE MEDICAL CARE [...] Available at http://www.nal.usda.gov/fnic/food comp/search/. Information adapted from: [facility] Patient Information 2009 [employer]. [employer] 2012 http://www.[employer]/contents/ vhqvutmtpshj-wutghqg-jzdnyc-the-b asics 02/05/2023 13:36:13 Esophageal Dilatation Esophageal Dilatation [...] including vitamins, herbs, eye drops, creams, and mfzp-qxq-elizqew medicines. Any problems you or family members [...] provider tells you to take them. ?Taking fkot-qth-vfqnaxi medicines, vitamins, herbs, and supplements. Follow instructions [...] home. Follow these instructions at home: Take hoqw-mow-tlwxhhq and prescription medicines only as told by [...] provider. Document Revised: 11/08/2020 Document Reviewed: 11/08/2020 [employer] Patient Education 2022 [employer]. Follow Up Care 12/18/2022 09:52:48 With:OMAR CROCKER, LAINEY Parker, [facility] Address: [address] [place] [address]. [address] [place] [address] When: Unknown Comments:Call for any problems. Office will call to schedule follow up appointment [facility] 02-05-2023 Evaluation + Plan note Extrac mariposa from: Title:ANES Post General Author:Frank Adams DO. Date:02/05/23 Plan Transfer/Discharge: Patient exhibiting no signs of N/V. Hydration status is adequate. Extracted from: Title:Bryan Basic PRE Author:Ronny Adams DO. Date:02/05/23 Plan [place] Society of Anesthesiologists (ASA) physical status classification: Class II. Anesthetic Preoperative Plan: Anesthesia General. [facility]06-21-2023 NoteHNO ID: [id number] Author: Marko Cordova PA-C Service: ? Author Type: Physician Printer [employer] Type: Progress Notes Filed: 12/25/2022 12:05 PM [...] knee joint Informed Consent Consent Obtained: Verbal [place] Protocol A moment to CARE was completed. [...] Greater (Aleve) Physical The (more content not included)...[facility]06-21-2023 NoteHNO ID: [id number] Author: RT Lizbeth(R) Service: ? Author Type: [...] BY: RT Lizbeth(R) December 25, 2022 10:24 [facility]06-21-2023 History of Present illness Narrative* Marko [...] knee joint Informed Consent Consent Obtained: Verbal [place] Protocol A moment to CARE was completed. [...] 2022 TIME: 10:36 AM [facility] Note [id number]:127[facility] 09-02-2022 Hospital Discharge instructions Patient Education [...] concerns, call to speak with your doctor. [facility]: [phone]. Follow Up Care 08/13/2022 15:47:23 With:Rita Dover Address: [address] [place], [place] [id number] Business (1) When:09/30/2022 10:30:00 Comments:Keep scheduled appointment [facility]08-19-2022 NoteHNO ID: [id number] Author: Augustus Pereira MD Service: ? Author [...] Recommend conservative treatment with activity modification, ice, tqch-zko-heuyiuc NSAID. If this becomes more significant she will return for follow-up Follow-up as symptoms dictate Augustus Pereira [facility]08-19-2022 NoteHNO ID: [id number] Author: RT Brynn(R) Service: ? Author Type: [...] Margi Moore, RT(R) February 22, 2022 2:30 [facility]05-03-2022 Evaluation + Plan note Future Scheduled Tests Laboratory* CBC w/ Indices 11/06/21 [facility] 05-03-2022 Hospital Discharge instructions Follow Up Care 11/06/2021 11:33:21 With:Akbar GARCES, DEJUAN Philip, PED Address: [address] [place] [phone] When:1 month only if needed [facility] 06-17-2021 NoteHNO ID: [id number] Author: Stanley Bunch PA-C Service: Orthopaedic Surgery Author Type: Physician Printer [employer] Type: Progress Notes Filed: 12/21/2020 9:30 AM [...] Failure of total knee replacement, 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[facility]) [T84.018A, Z96.659]. Patient will require an opioid [...] 1707 -- 12/21/20 0000 graduated compression stockings ([place]) 12/20/20 1715 graduated compression stockings ([place], [place]) 12/20/20 1715 activity - mobilize patient ([place]) VTE Prophylaxis: VTE prophylaxis appropriate POST OPERATIVE COMPLICATIONS: Complicated by: uneventful/none SIGNATURE: Stanley Bunch PA-C PATIENT NAME: Jessenia Wing DATE: 12/21/2020 TIME: 9:30 AM PAGER/CONTACT #: [id number] NoteHNO ID: [id number] Author: Zeke Prajapati II, DO Service: Anesthesiology [...] December 20, 2020 TIME: 12:30 PM CSN: [id number] NoteHNO ID: [id number] Author: Zeke Prajapati II, DO Service: Anesthesiology [...] post-op pain management/at surgeon's request Staffing Anesthesiologist: eZke Prajapati II, DO Performed by: anesthesiologist Preparation [...] December 20, 2020 TIME: 12:02 PM CSN: [id number] Evaluation + Plan note Future Appointments Appointment Date:07/18/2023 08:00:00 AM Scheduled Provider: Location:.[facility]ARDIO Appointment Type:CV Echo (FT) Appointment Date:08/05/2023 01:00:00 PM Scheduled Provider:Eyad ARORA MD Location:.[facility] Appointment Type:Cardiology New Patient (FT) Future Scheduled Tests Radiology* Echo w/ Saline Bubbles 07/18/23 [facility] 05-15-2017 History of Past illness Narrative* Problem Noted Date Resolved Date S/P left unicompartmental knee replacement 11/1803/18/2017 documented as of this encounter (statuses as of 02/22/2022) [facility] History of Past illness Narrative* Problem Noted Date Resolved Date S/P left unicompartmental knee replacement 11/1803/18/2017 documented as of this encounter (statuses as of 12/25/2022) [facility] Future Appointments Appointment Date:05/29/2022 09:45:00 AM Scheduled Provider:Jerel Banks DPM [facility] Appointment Type:WC Follow Up Visit (FT) Future Scheduled Tests Radiology* US LE Venous Duplex Insufficiency Bilat 05/17/22 [facility] Future Appointments Appointment Date:06/10/2022 03:00:00 PM Scheduled Provider: [facility] Type:US Duplex Procedures (FT) Future Scheduled Tests Radiology* US LE Venous Duplex Insufficiency Bilat 06/10/22 [facility] Future Appointments Appointment Date:09/30/2022 10:30:00 AM Scheduled Provider:Rita [place] MD Location[facility] Appointment Type:Vascular Follow Up (FT) [facility] Future Appointments Appointment Date:10/31/2022 03:30:00 PM Scheduled Provider:Rita [place] MD Location:.[facility] Appointment Type:Vascular Follow Up (FT) Appointment Date:11/22/2022 04:20:00 PM Scheduled Provider:ANA CHÁVEZ CNP Location:[facility] Appointment Type:[facility] Evaluation + Plan note Future Appointments Appointment Date:02/05/2023 12:50:00 PM Scheduled Provider: Location:[facility] Appointment Type:Surgery FT [facility] Evaluation + Plan note Future Appointments Appointment Date:06/05/2023 03:20:00 PM Scheduled Provider:Morena Rousseau CNP Location:[facility] Appointment Type:BADH Follow Up [facility] Evaluation + Plan note Future Appointments Appointment Date:08/05/2023 01:00:00 PM Scheduled Provider:Eyad ARORA MD [facility] Type:[facility]iology New Patient (FT) [facility] Diagnosis S/P revision of total knee, left- Primary [facility] Diagnosis S/P revision of total knee, left- Primary Primary osteoarthritis of right knee Primary localized osteoarthrosis, lower leg [facility] Narrative No data available for this section [facility] Hospital Discharge instructions No data available for this section [facility] No data available for this section [facility] for [facility] (narrative)* Diagnostic Procedure Only (Routine) - Closed Specialty Diagnoses / Procedures Referred By Mandeep sellers Referred To Contact XR IMAGING Diagnoses S/P revision of total knee, left Procedures XR KNEE POST OP 3V AP/LAT/MERCHANT LEFT RADIOLOGIC EXAMINATION KNEE 3 VIEWS Augustus Pereira MD [address] [place] [address] Xr Imaging Referral ID Status Reason Start Date Expiration Date V isits Requested Visits Authorized [id number] Closed Auto-Generate d Referral 02/22/2022 03/24/2023 1 1 [facility] Summary Purpose Family History No Family History [...] Marko Cordova PA-C [address] [place] [address] [facility] [place] [address] [id number] Referral ID Status Reason Start Date Expiration Date Visits Requested Visits Authorized [id number] Pending Review Auto-Generat ed Referral 12/25/2022 12/25/2023 [...] section and content) DATE CREATED AUTHOR 01/05/2021 [facility] DATE CREATED AUTHOR AUTHOR'S ORGANIZ ATION 12/26/2022 [facility] DATE CREATED AUTHOR AUTHOR'S ORGANIZ ATION 06/28/2023 [facility] Source Comments (unrecognize d section and content) In the event this informatio n is protected by the Federal Confidentiality of Alcohol and Drug Abuse Patient Records regulations: The Federal rules restrict any use of the information to criminally investigate or prosecute any alcohol or drug abuse patient.[facility] System[facility] the event this information is protected by the Federal Confidentiality of Alcohol and Drug Abuse Patient Records regulations: The Federal rules restrict any use of the information to criminally investigate or prosecute any alcohol or drug abuse patient.[facility] Patient Care team informatio n (unrecognized section and content) Personnel Name: Pb BAUMAN DO Address: Address: [address] [place], [place] [phone] Personnel Name: Pb BAUMAN DO Address: Address: [address] [place], [place] [phone] Personnel Name: Pb BAUMAN DO Address: Address: [address] [place] [address] Personnel Name: Pb BAUMAN DO Address: Address: [address] [place] [address] Personnel Name: Pb BAUMAN DO Address: Address: [address] [place] [address] Personnel Name: Pb BAUMAN DO Address: Address: [address] [place] [address] Personnel Name: Pb BAUMAN DO Address: Address: [address] [place] [address] Personnel Name: Pb BAUMAN DO Address: Address: [address] [place] [address]- [place] Personnel Name: Pb BAUMAN DO Address: Address: [address] [place] [address]- [place] Personnel Name: Pb BAUMAN DO Address: Address: [address] [place] [address]- [place] Personnel Name: Pb BAUMAN DO Address: Address: [address] [place] [address]- [place] Personnel Name: Pb BAUMAN DO Address: Address: [address] [place] [address]- [place] Personnel Name: DIANA MOYER Address: Address: [address] [place] [address]- Personnel Name: DIANA MOYER Address: Address: [address] [facility] [address] [place] [phone]- Reason for Visit (unrecogniz ed section and [...] BE BASED ON THE PRIMARY CLINICAL RECORDS. [facility] [employer] [facility]. provides no warranty or guarantee of the accuracy or completeness of information in this document.
== END 2023-09-22 07:28 | disposition home or self-care (01) ==
LOC: VC 07:27
PROVIDERS: PCP Radiology Diagnostic Radiology; Visit Provider Radiology Diagnostic Radiology
DX: I80.01 Phlebitis and thrombophlebitis of superficial vessels of right lower extremity (principal)
CPT/HCPCS: 93971; G0463

== ENCOUNTER 2023-10-06 09:03 | Outpatient (OUT) | payer OTHER, BC, SELFPAY ==
--- NOTE | 2023-10-06 08:44 | VEIN_ITS ---
The [address] [address] Patient Name: LOREN WING MRN: [id number] date: 1970 Sex: F Assigned Patient Location: Current Patient Location: Accession/Order Number: [id number] Exam Date: 10/06/2023 08:55 Report Date: 10/06/2023 10:17 At the request of: PREMA HAWKINS Procedure: VC INJ Foam Sclerosant WUS STONE PLANER PROCEDURE: VC INJ Foam Sclerosant WUS STONE PLANER HISTORY: I83.813 Bilateral leg painful varicose veins Pre-operative Diagnosis: CEAP class C6 venous insufficiency with pain, tenderness, edema and incompetent branch saphenous vein(s), chronic venous insufficiency right leg secondary to venous incompetence Post-operative Diagnosis: CEAP class C6 venous insufficiency with pain, tenderness, edema and incompetent branch saphenous vein(s), chronic venous insufficiency right leg secondary to venous incompetence Procedure Performed: 1. Ultrasound-guided microfoam chemical ablation with Varithenaregistered 2. Intraoperative ultrasound guidance Physician: Neftali Romo M.D. Anesthesia: None Indications for Procedure: 52 year old female. Symptoms including lower extremity pain, dilated bulging veins, swelling for many years despite conservative medical therapy including medical compression stockings, exercise and analgesics. Prior procedures include endovenous laser ablation. Multiple incompetent varicosities of the right leg. Duplex scan showed reflux and enlarged diameters up to 6 mm. The patient underwent informed consent including management options where the complications of infection, bleeding, pain, and skin injury were discussed. Particular attention was spent discussing thrombus extension and deep vein thrombosis as well as the possibility of pulmonary embolus and treatment with oral or injectable blood thinners. Procedure: The patient walked to the procedure room. All applicable staff donned appropriate apparel. A procedure timeout was performed to confirm correct patient, correct extremity, correct procedure, and correct room set-up including presence of all applicable supplies, devices, and drugs. A duplex ultrasound, performed by myself confirmed the location and incompetence of branch saphenous varicosities and their course was marked on the skin together with the dilated tributaries. The extent of treatment of the vein and the associated varicosities was determined through ultrasound mapping. The skin was prepped and then punctured with a butterfly needle and advanced under ultrasound guidance. The Varithenaregistered canister was activated and the canister was primed and purged as required in the instructions for use. Varithenaregistered was drawn into a sterile syringe. Varithenaregistered was slowly administered at 0.5-1.0 cc/second with close observation by ultrasound of its course in the vessels. Total volume utilized was: 15 mL (8 mL into a 5 mm varicosity of the distal medial lower right leg; 7 mL into a 6 mm varicosity mid medial upper right leg). Following administration of Varithenaregistered the leg was elevated and the patient was asked to repeatedly dorsiflex the ankle to limit flow of Varithenaregistered into perforating veins. Once appropriate spasm had been confirmed in the treated veins, the vascular catheter was removed from the leg and light pressure was applied over the puncture site for hemostasis. The common femoral and deep superficial veins were then evaluated for flow and compressibility prior to dressing placement. The lower extremity was kept elevated at 45 degrees above the horizontal and cording material was applied over the saphenous segments and tributaries to allow for eccentric compression over the target vessels including the targeted saphenous vein(s). A multilayer dressing was applied consisting of foam pads, coban and thigh-high 20-30 mm Hg compression elastic support hose were placed on the patient. The leg was lowered only after compression had been applied and the patient was immediately ambulatory. The patient ambulated 10 minutes under supervision and was without apparent concerns at time of release. Post-care instructions include advising patient to keep post-treatment bandages in place and dry for 48 hours, avoid extended periods of inactivity, avoid heavy exercise for one week, wear compression stockings on the treated leg continuously for two weeks, to walk daily for 10 minutes over the next month. The patient was instructed to take an anti-inflammatory medicine as needed and to follow up for color duplex scan of the Saphenous veins, the treated branch saphenous varicosities, the adjacent deep veins, and additional treatment within 7 days. PERSONNEL: Matteo Holloway RN Electronically authenticated by: NEFTALI ROMO Date: 10/06/2023 10:17
== END 2023-10-06 09:04 | disposition home or self-care (01) ==
LOC: VC 09:03
PROVIDERS: PCP Radiology Diagnostic Radiology; Visit Provider Radiology Diagnostic Radiology
DX: I83.813 Varicose veins of bilateral lower extremities with pain (principal)
CPT/HCPCS: 36466

== ENCOUNTER 2023-10-10 07:51 | Outpatient (OUT) | payer OTHER, BC, SELFPAY ==
--- NOTE | 2023-10-10 07:58 | VEIN_ITS ---
Patient Name: LOREN WING MR#: [id number] : 1970 Exam Date: 10/10/2023 Ordering Doctor: DR PREMA HAWKINS M.D. RADIOLOGY REPORT PROCEDURE: FACILITY EST [facility] - OFFICE VISIT FOLLOW UP COMPARISON: VC EXT VENOUS RT LMTD, 10/10/2023. VC FACILITY EST LMTD, 09/22/2023. PROGRESS NOTES: The patient reports improvement in leg symptoms. There has been interval reduction in varicosities. The patient has followed our recommendations to walk 20-30 minutes once or twice per day since the procedure. Physical exam demonstrates decrease in varicosities of the leg. Persistent varicosities are identified along the left leg. Review of the ultrasound performed the same day demonstrates occlusive thrombus extending throughout the treated vein(s), see separate report, consistent with a successful ablation. No thrombus extending into or beyond the saphenofemoral junction. The patient expressed a desire to proceed with treatment of remaining varicosities. The patient was informed that treatment was a process and would require 1-2 procedures/sessions. VEIN/[facility] EST LMTD IMPRESSION: 1. Successful ablation of the right leg treated branch saphenous vein(s). 2. Persistent left leg varicose veins and lower extremity symptoms. PLAN: Microfoam chemical ablation of left leg incompetent branch saphenous varicosities. Nurse notes, history and physical were reviewed and confirmed, see attached forms. The nurse was present throughout the physical exam and consultation Dictated by: Neftali Romo M.D. on 10/10/2023 at 09:42 Approved by: Neftali Romo M.D. on 10/10/2023 at 09:42
--- NOTE | 2023-10-10 07:59 | VEIN_ITS ---
Patient Name: LOREN WING MR#: [id number] : 1970 Exam Date: 10/10/2023 Ordering Doctor: DR PREMA HAWKINS M.D. RADIOLOGY REPORT PROCEDURE: VC EXT VENOUS RT LMTD COMPARISON: VC EXT VENOUS RT LMTD, 09/22/2023. INDICATIONS: I80.01 Phlebitis of superficial veins of rt lower extremity TECHNIQUE: Lower extremity berry scale and Duplex Doppler evaluation of the deep venous system from the inguinal ligament through the calf veins. FINDINGS: REGION: Right lower extremity. THROMBI: Negative for DVT. Varithena induced thrombus visualized at mid/med calf and dist/med thigh. COMPRESSIBILITY: Non-compressible segments corresponding to thrombus FLOW: Areas of no flow corresponding to thrombus OTHER: No patent varicose veins remain. CONCLUSION: 1. Successful post ablation occlusion of right leg treated branch saphenous varicosities. Dictated by: Neftali Romo M.D. on 10/10/2023 at 09:41 Approved by: Neftali Romo M.D. on 10/10/2023 at 09:41
--- OUTSIDE RECORDS SUMMARY | 2023-10-10 08:01 | XMS_ITS | CCD ---
Author Organization [facility] Care Team Providers Care Satellite Tv Technician Name Role Phone Pb BAUMAN Primary Care Physician [phone] Unavailable Primary Care Provider Unavailabl e Unavailable Primary Care Provider Unavailabl e BANDSJAVON, MARKO Attending Unavailable BANDSJAVON MARKO Referring Unavailable PEREIRAAUGUSTUS Attending Unavailable PEREIRA AUGUSTUS Referring Unavailable Pb BAUMAN Primary Care Physician DIANA CEJA Primary Care Physician Keith CHUNG Attending Unavailable ANA CHÁVEZ Attending Unavailable BAY CEJAC DIANA Grady Attending Unav ailable ANA CHÁVEZ Attending Unavailable Stanislaw, Mohamed FJohn Admitting Unavailable Stanislaw, Mohamed FJohn Attending Unavailable Stanislaw, Mohamed F. Referring Unavailable SALAM, Parker Admitting Unavailable SALAM, Keith Attending Unavailable SALAM, Parker Referring Unavailable Sri PUGA Admitting Unavailable Sri PUGA Attending Unavailable Sri PUGA Referring Unavailable Everardo Perera Unavailable REFERRAL, SELF Referring Unavailable Everardo Davis. Attending Unavailable Stanislaw, Mohamed FJohn Admitting Unavailable Stanislaw, Mohamed FJohn Attending Unavailable NONE, XXXX Referring Unavailable Sri PUGA Attending Unavailable Kimmy Scott Attending Unavailable Morena Rousseau Attending Unavailable Morena Rousseau Attending Unavailable Allergies Allergy Classification Reported Allergen(s) Allergy Type Date of Onset Reaction(s) Facility (17 sources) seasonal ,dust, mold 1 Allergy to substance hayfever [facility] Comment on above: hayfever (1 source) Seasonal allergy Allergy to substance 3 Itching [facility] (1 source) seasonal ,dust, mold; Translations: [seasonal ,dust, mold] Propensity to adverse reactions (disorder) [facility] (1 source) No Known Medication Allergies; Translations: [No Known Medication Allergies] Propensity to adverse reactions (disorder) [facility] NEGATED: Highlighted row has been ruled out! (1 source) Drug allergy [facility] NEGATED: Highlighted row has been ruled out! (1 source) Drug allergy [facility] NEGATED: Highlighted row has been ruled out! (1 source) Drug allergy [facility] NEGATED: Highlighted row has been ruled out! (1 source) Drug allergy [facility] NEGATED: Highlighted row has been ruled out! (1 source) Drug allergy [facility] NEGATED: Highlighted row has been ruled out! (1 source) Drug allergy [facility] NEGATED: Highlighted row has been ruled out! (1 source) Drug allergy [facility] NEGATED: Highlighted row has been ruled out! (1 source) Drug allergy [facility] NEGATED: Highlighted row has been ruled out! (1 source) Drug allergy [facility] NEGATED: Highlighted row has been ruled out! (1 source) Drug allergy [facility] [place] NEGATED: Highlighted row has been ruled out! (1 source) Drug allergy [facility] [place] Medications Current Medications Medication Drug Class(es) Dates Sig (Normalized) Sig (Original) albuterol HFA 90 mcg/inh MDI (17 sources) Start: 06-27-2023 take 2 puff(s) by inhalation four times daily albuterol HFA 90 mcg/inh MDI 2 puff(s), Inhalation, QID, 1 EA, Refill(s) 2, [facility], [facility], cm, 06/27/23 10:33:00 EST, Height/Length Dosing, 111, kg, 06/27/23 10:33:00 EST, Weight Dosing Start Date: 06/27/23 Status: Ordered Start: 05-25-2020 take 2 puff(s) by in halation four times daily albuterol HFA 90 mcg/inh MDI 2 puff(s), Inhalation, QID, 1 EA, Refill(s) 2, [facility], 167, cm, 05/25/20 16:49:00 EST, Height/Length Dosing, 112.5, kg, 05/25/20 16:49:00 EST, Weight Dosing Start Date: 05/25/20 Status: Ordered azithromycin 250 mg oral tablet (1 source) Macrolide Antimicrobial Start: 06-27-2023 End: 07-02-2023 Zithromax Z-Mars 250 mg oral tablet 250 mg = 1 tab(s), Oral, As Directed, as directed on package labeling, X 5 day(s), # 6 tab(s), Refills(s) 0, Pharmacy: [facility] 1985, 167, cm, 06/27/23 10:33:00 EST, Height/Length Dosing, 111, kg, 06/27/23 10:33:00 EST, Weight Dosing Start Date: 06/27/23 Stop Date: 07/02/23 Status: Ordered brompheniramine maleate 0.4 mg/ml / dextromethorphan hydrobromide 2 mg/ml / pseudoephedrine hydrochloride 6 mg/ml oral solution (2 sources) alpha-Adrenergic Agonist, Uncompetitive I-fpqely-D-aspart ate Receptor Antagonist, Sigma-1 Agonist Start: 06-27-2023 take 2.5 mL by mouth every six hours Bromfed DM oral syrup 2.5 mL, Oral, q6hr for cold symptoms, 120 mL, Refill(s) 1, [facility], 167, cm, 06/27/23 10:33:00 EST, Height/Length Dosing, 111, kg, 06/27/23 10:33:00 EST, Weight Dosing Start Date: 06/27/23 Status: Ordered hydrALAZINE hydrochloride 10 mg oral tablet (1 source) Arteriolar Vasodilator Start: 07-04-2023 hydrALAZINE 10 mg Tab See Instructions, 1 tab PO PRN BP >140/90, # 30 tab(s), Refills(s) 2, Pharmacy: [facility] 1985, 167, cm, 06/27/23 10:33:00 EST, Height/Length Dosing, 111, kg, 06/27/23 10:33:00 EST, Weight Dosing Start Date: 07/04/23 Status: Ordered hydroCHLOROthiazide 12.5 mg oral capsule (4 sources) Thiazide Diuretic Start: 06-27-2023 take 1 capsule by mouth once daily hydrochlorothiazide 12.5 mg Cap 12.5 mg = 1 cap(s), Oral, Daily, # 30 cap(s), Refills(s) 6, Pharmacy: [facility] 1985, 167, cm, 06/27/23 10:33:00 [...] day(s), # 21 tab(s), Refills(s) 0, Pharmacy: [facility], 167, cm, 06/27/23 10:33:00 EST, Height/Length Dosing, 111, kg, 06/27/23 10:33:00 EST, Weight Dosing Start Date: 06/27/23 Stop Date: 07/03/23 Status: Ordered omeprazole 40 mg delayed release oral capsule (12 sources) Proton Pump Inhibitor Start: take 1 capsule by mouth once daily omeprazole 40 mg Cap-DR 40 mg = 1 cap(s), Oral, Daily, # 30 cap(s), Refills(s) 1, Pharmacy: [facility], 167, cm, 02/05/23 12:12:00 EDT, Height/Length Dosing, 106.5, kg, 02/05/23 12:12:00 EDT, Weight Dosing Start Date: 02/05/23 Status: Ordered Start: 01-20-2023 take 1 capsule by mo uth once daily omeprazole 20 mg Cap-DR 20 mg = 1 cap(s), Oral, Daily, # 90 cap(s), Refills(s) 3, Pharmacy: [facility], 167, cm, 12/18/22 9:30:00 EDT, Height/Length Dosing, 106.5, kg, 12/18/22 9:30:00 EDT, Weight Dosing Start Date: 01/20/23 Status: Ordered Start: 10-25-2022 take 1 capsule by [facility] once daily omeprazole 20 mg Cap-DR 20 mg = 1 cap(s), Oral, Daily, # 30 cap(s), Refills(s) 0, Pharmacy: [facility], 167, cm, 10/25/22 14:36:00 EDT, Height/Length Dosing, 110.1, kg, 10/25/22 14:36:00 EDT, Weight Dosing Start Date: 10/25/22 Status: Ordered polyethylene glycol 3350 638445 mg / potassium chloride 1480 mg / sodium bicarbonate 5720 mg / sodium chloride 18146 mg powder for oral solution (1 source) Osmotic Laxative Start: 12-18-2022 NuLYTELY Ford oral powder for reconstitution See Instructions, 1 EA, Refill(s) 0, See physician instructions prior to procedure., [facility], 167, cm, 12/18/22 9:30:00 [...] day(s), # 28 tab(s), Refills(s) 1, Pharmacy: [facility], 167, cm, 11/06/21 13:58:00 [...] use, # 1 EA, Refills(s) 5, Pharmacy: [facility], 167, cm, 06/27/23 10:33:00 EST, Height/Length Dosing, 111, kg, 06/27/23 10:33:00 EST, Weight Dosing Start Date: 06/27/23 Status: Ordered Start: 10-25-2022 take 232 ug by mouth every twelve hours fluticasone propionate 232 mcg/inh inhalation powder 232 mcg, Inhalation, q12hr, Swallowed rather than inhaled rinse mouth and throat after use, # 1 EA, Refills(s) 5, Pharmacy: [facility], 167, cm, 10/25/22 14:36:00 EDT, Height/Length Dosing, 110.1, kg, 10/25/22 14:36:00 EDT, Weight Dosing Start Date: 10/25/22 Status: Ordered sertraline 50 mg oral tablet (19 sources) Serotonin Reuptake Inhibitor Start: 01-20-2023 Zoloft 50 mg Tab 75 mg = 1.5 tab(s), Oral, Daily, # 135 tab(s), Refills(s) 3, Pharmacy: [facility], 167, cm, 06/27/23 10:33:00 EST, Height/Length Dosing, 111, kg, 06/27/23 10:33:00 EST, Weight Dosing Start Date: 06/27/23 Status: Ordered Start: 01-09-2022 Zoloft 50 mg T ab 75 mg = 1.5 tab(s), Oral, Daily, # 135 tab(s), Refills(s) 2, Pharmacy: [facility], 167, cm, 11/06/21 13:58:00 EDT, Height/Length Dosing, 91.5, kg, 11/06/21 13:58:00 EDT, Weight Dosing Start Date: 01/09/22 Status: Ordered Start: 12-28-2020 Zoloft 50 mg T ab 75 mg = 1.5 tab(s), Oral, Daily, # 135 tab(s), Refills(s) 2, Pharmacy: [facility], 167.6, cm, 12/22/20 12:51:00 [...] on above: Take 1 tablet by carmelo once daily for 14 days. Problems Active [...] block; Translations: [Left bundle-branch block, unspecified] Onset: 12-22-2023 Chronic Deficiency and other anemia (18 sources) [...] and Complexity of Problems Differential Diagnosis: [] [place] Data External documents reviewed: [] My EKG [...] medications Follow-up With When Contact Information Pb BAUMAN In 3 days 06/29/[address] [facility] (more content not included)... Normal [facility] Comment on above: Result Comment: Elec tronically Signed By: Justin Bunch PA-C\.br\Date and Time Signed: 06/26/23 21:21 EST\.br\Electronically Co-Signed By: Everardo Perera DO\.br\Date and Time Co-Signed: 06/27/23 08:01 EST Family [...] seem to help much ER followup: Hospital: [facility] Visit date: 06/27/23 Symptoms the patient presented [...] day(s), # 6 tab(s), Refills(s) 0, Pharmacy: [facility], 167, cm, 06/27/23 10:33:00 EST, Height/Length Dosing, 111, kg, 06/27/23 10:33:00 EST, Weight Dosing brompheniramine/dext romethorphan/PSE, 2.5 mL, Oral, q6hr for cold symptoms, 120 mL, Refill(s) 1, [facility], 167, cm, 06/27/23 10:33:00 EST, Height/Length Dosing, 111, kg, 06/27/23 10:33:00 EST, Weight Dosing hydrochlorothiazide, 12.5 mg = 1 cap(s), Oral, Daily, # 30 cap(s), Refills(s) 6, Pharmacy: [facility], 167, cm, 06/27/23 10:33:00 EST, Height/Length Dosing, 111, kg, 06/27/23 10:33:00 EST, Weight Dosing methylPREDNISolone, = 1 packet(s), Oral, As Directed, as directed on package labeling, X 6 day(s), # 21 tab(s), Refills(s) 0, Pharmacy: [facility] 1985, 167, cm, 06/27/23 10:33:00 EST, (more content not included)... Normal [facility] Comment on above: Result Comment: Elec tronically Signed By: DIANA MOYER.br\Date and Time Signed: 06/27/23 12:02 EST Insurance Correspondenceon 1 08-28-2022 Insurance Correspondence [id number] 0#1.00TIFF [facility] Nursing Note - Woundon 06-27 Nursing Note - Wound [id number] 9#2.00TIFF [facility] Patient Educationon 06-27-20 Patient Education [...] safe for you. General instructions ? Take oylu-jpu-nhqzaob and prescription medicines only as told by [...] provider. Document Revised: 10/11/2020 Document Reviewed: 12/21/2019 [employer] Patient Education ? 2022 [employer] ENT Cough, Adult Coughing is a [...] ? Allergies. (more content not included)... Normal [facility] Physician Orderon 06-27-2023 Physician Order [id number] 4#1.00TIFF Normal [facility] Physician Referralon 023 Physician Referral [id number] #1.00TIFF Normal [facility] Progress Note - Woundon 06-07 Progress Note - Wound [id number] 2#1.00TIFF Normal [facility] Auto DiffOrdered By: SYSTEM SYSTEM on 06-26-2023 Basophils/100 WBC (Bld) 0.9 % Normal 0.0-2.0 [facility] Comment on above: Order Comment: Order Added by Discern Expert. Performed By: #### 1 [id number], 9947387, 3670171, 4543897, 82977484, 39572470 ####[facility] [address] [place] [address] Basophils/Leukocytes Auto (Bld) [Pure # fraction] 0.0 E9/L Normal 0.0-0.2 [facility] Comment on above: Order Comment: Order Added by Discern Expert. Performed By: #### 1 [id number], 5749980, 0998756, 8994824, 33075722, 74769928 ####[facility] [address] [place] [address] Eosinophils/100 WBC (Bld) 2.7 % Normal 0.0-8.0 [facility] Comment on above: Order Comment: Order Added by Discern Expert. Performed By: #### 1 [id number], 5864070, 6301410, 9638532, 19300072, 87745969 ####[facility] [address] [place] [address] Eosinophils/Leukocyt es Auto (Bld) [Pure # fraction] 0.1 E9/L Normal 0.0-0.5 [facility] Comment on above: Order Comment: Order Added by Discern Expert. Performed By: #### 1 9574757, 4932970, 7723747, 2475159, 40697418, 86700092 ####[address] [address] Lymphocytes/100 WBC (Bld) 20.0 % Normal 14.0-50.0 [facility] Comment on above: Order Comment: Order Added by Discern Expert. Performed By: #### 1 8508912, 9653294, 8003231, 9699714, 81576323, 57002529 ####[address] [address] Lymphocytes/Leukocyt es Auto (Bld) [Pure # fraction] 0.9 E9/L Low 1.0-4.0 [facility] Comment on above: Order Comment: Order Added by Amanda Expert. Performed By: #### 1 9262674, 3617287, 2672207, 6406999, 87481781, 09037123 ####[address] [address] Monocytes/100 WBC (Bld) 7.4 % Normal 4.0-14.0 [facility] Comment on above: Order Comment: Order Added by Amanda Expert. Performed By: #### 1 7650318, 6715145, 2398259, 7307904, 53528259, 87739796 ####[address] [address] Monocytes/Leukocytes Auto (Bld) [Pure # fraction] 0.3 E9/L Normal 0.2-1.0 [facility] Comment on above: Order Comment: Order Added by Amanda Expert. Performed By: #### 1 5357695, 4849006, 5393206, 9455114, 65637646, 87637080 ####[address] [address] Neutrophils/100 WBC (Bld) 69.0 % Normal 36.0-75.0 [facility] Comment on above: Order Comment: Order Added by Discern Expert. Performed By: #### 1 3981218, 9139512, 8867665, 5401318, 19771242, 83867440 ####[place] [address] [place] [address] Neutrophils/Leukocyt es Auto (Bld) [Pure # fraction] 3.2 E9/L Normal 2.0-7.5 [facility] Comment on above: Order Comment: Order Added by Discern Expert. Performed By: #### 1 3676448, 2970642, 4887545, 9358555, 54413926, 11614993 ####[place] [address] [address] BMPOrdered By: SYSTEM SYSTEM on 06-26-2023 Anion gap [Moles/Vol] 11 mmol/L Normal 6-16 [facility] Comment on above: Performed By: #### 1 4067273, 3272859, 2855035, 1692588, 78351415, 20980895 ####[place] [address] [place] [address] Calcium [Mass/Vol] 8.6 mg/dL Low 8.9-11.1 [facility] l [facility] Comment on above: Performed By: #### 1 7539592, 7188611, 4015268, 9506860, 23493455, 40021256 ####[facility] [address] [place] [address] Chloride [Moles/Vol] 109 mmol/L Normal 101-111 [facility] daniela [facility] Comment on above: Performed By: #### 1 9541477, 1471647, 5994580, 2596222, 66612145, 67156730 ####[address] [place] [address] CO2 [Moles/Vol] 26 mmol/L Normal 21-31 [facility] Comment on above: Performed By: #### 1 7847140, 8479404, 8475624, 9167350, 59597465, 82102612 ####[facility] [address] [place] [address] Creatinine [Mass/Vol] 0.9 mg/dL Normal 0.5-1.3 [facility] Comment on above: Performed By: #### 1 1388429, 0334699, 3082073, 1603830, 61342678, 69837614 ####[facility] [address] [place] [address] Glucose [Mass/Vol] 104 mg/dL Normal 55-199 [facility] Comment on above: Performed By: #### 1 6969462, 4484143, 7672357, 0794618, 86834583, 48279126 ####[address] [place] [address] Potassium [Moles/Vol] 3.9 mmol/L Normal 3.5-5.3 [facility] Comment on above: Performed By: #### 1 4788779, 1321027, 2203444, 9926573, 60809971, 18063198 ####[address] [place] [address] Sodium [Moles/Vol] 142 mmol/L Normal 135-145 Remiso l Chem Comment on above: Performed By: #### 1 4723904, 0541066, 5213931, 3368668, 55557698, 21858720 ####[address] [place] [address] Urea nitrogen [Mass/Vol] 12 mg/dL Normal 5-21 [facility] Comment on above: Performed By: #### 1 8575882, 8430843, 7192548, 3767227, 25721378, 99392525 ####[address] [place] [address] BMPon 06-26-2023 BUN/Creat Ratio 13 No Units Normal 10-20 [facility] Comment on above: Performed By: #### 1 9354946, 6039708, 1015208, 0997117, 15466134, 19572522 ####[facility] [address] [place] [address] CBC w/ Auto DiffOrdered By: Rossy Summers on 06-26-2023 Erythrocyte distribution width (RBC) [Ratio] 16.1 % High 10.9-14.2 [facility] Comment on above: Performed By: #### 1 0281567, 4320120, 3926627, 6139840, 71107862, 06140082 ####[facility] [address] [place] [address] Hematocrit (Bld) [Volume fraction] 35.9 % Normal 34.0-46.0 [facility] Comment on above: Performed By: #### 1 1656845, 0514850, 0491310, 2851267, 50932764, 88755230 ####[facility] [address] [place] [address] Hemoglobin (Bld) [Mass/Vol] 12.0 g/dL Normal 12.0-16.0 [facility] Comment on above: Performed By: #### 1 7339784, 0618558, 4591582, 8827920, 75800948, 24304728 ####[facility] [address] [place] [address] MCH (RBC) [Entitic mass] 27.2 pg Normal 27.0-34.0 [facility] Comment on above: Performed By: #### 1 7315418, 1672614, 8454114, 8389565, 44272122, 46064859 ####[facility] [address] [place] [address] MCHC (RBC) [Mass/Vol] 33.6 g/dL Normal 31.4-36.0 [facility] Comment on above: Performed By: #### 1 1479174, 3317844, 7202203, 6726379, 47740256, 53135435 ####[facility] [address] [place] [address] MCV (RBC) [Entitic vol] 81.0 fL Normal 80.0-100.0 [facility] Comment on above: Performed By: #### 1 0406706, 8090283, 2853849, 4846358, 37597352, 97815550 ####[facility] [address] [place] [address] Platelet mean volume (Bld) [Entitic vol] 7.9 fL Normal 6.4-10.8 [facility] Comment on above: Performed By: #### 1 6334634, 4020013, 4637901, 0829155, 47870472, 11753899 ####[place] [place] [address] Platelets (Bld) [#/Vol] 138.0 E9/L Low 150.0-500.0 [facility] Comment on above: Performed By: #### 1 3374775, 5231857, 7645771, 6801004, 40452442, 31515391 ####[place] [address] [address] RBC (Bld) [#/Vol] 4.4 E12/L Normal 4.3-5.9 [facility] Comment on above: Performed By: #### 1 5691012, 8937556, 0959122, 3080689, 96042119, 51886722 ####[facility] [address] [address] WBC corrected for nucl RBC Auto (Bld) [#/Vol] 4.6 E9/L Normal 4.0-11.0 [facility] Comment on above: Performed By: #### 1 6678575, 5318735, 6004085, 2024374, 81765165, 35219117 ####[place] [address] [address] CHEMISTRYOrdered By: SYSTEM SYSTEM on 06-26-2023 eGFR mL/min/1.73 m2 Normal >=59mL/min/1.73 m2 Re misol Chem Urea nitrogen/Creatinine [Mass ratio] 13 mg/mg Normal 10 - 20 [facility] Chem COAGULATIONOrdered By: Franko Saldana on 06-26-2023 aPTT Coag (PPP) [Time] 31.8 s Normal 25.1 - 36.5 second(s) [facility] Auto Coag Comment on above: Interpretive Data: P chapoer 15 days - 4 weeks 1 - [...] the same coagulation reagent and instrumentation as [facility]. Currently there are no coagulation studies available worldwide for children to 14 days, and no normal ranges. Heparin therapeutic range (represented by Anti-Factor Xa activity of 0.2 - 0.4 U/mL) corresponds to PTT of 56.6 - 109.0 sec. PT Coag (PPP) [Time] 10.7 s Normal 9.4 - 1 2.5 second(s) [facility] Auto Coag Comment on above: Interpretive Data: [...] the same coagulation reagent and instrumentation as [facility]. Currently there are no coagulation studies available [...] MD, V. Transcribed by: ANDRAE Technologist: ROSALINA [facility] Consent for Procedure/Surger yon 06-26-2023 Consent for Procedure/Surgery [id number] 1#1.00TIFF [facility] Consent for Treatmenton 06-07 Consent for Treatment [id number] #1.00TIFF [facility] Consent for Treatment [id number] #1.00TIFF [facility] Consent to Photographon 06-07 Consent to Photograph [id number] 6#1.00TIFF [facility] Correspondence - [place] Correspondence - Wound [id number] 3#1.00TIFF [facility] Correspondence - Wound [id number] 1#1.00TIFF Normal [facility] Discharge Instructionson Discharge Instructions [id number] 9#1.00TIFF Normal [facility] ED Clinical Summaryon 2022 ED Clinical Summary [address] [address] ED Clinical Summary Person Information Name: MECCAJESSENIA/[facility] Age: 52 Years : 1970 Sex: Female Language: Citizen Of [place] PCP: Pb BAUMAN DO Marital Status: Visit Id: Visit Reason: Hypertension; Headache; HIGH BLOOD PRESSURE - SENT BY CONVENIENT CARE Speciality: Acuity: 3 Enc Type: Emergency [...] 06/26/2023 20:53:28 06/26/2023 20:53:28 06/26/2023 20:53:28 AD[address]: [id number] [facility] [id number] PHYS DOC NOTES: MEDICAL INFORMATION: Prescriptions Given: [...] Follow up: With: Address: When: Pb BAUMAN [address] [facility] [place] [phone] Business (1) In 3 days 06/29/2023 Comments: Follow-up with your primary care provider in 3 to 5 days. If symptoms worsen, do not improve, or new symptoms arise please report back to emergency department for further evaluation. Continue to monitor your blood pressure, and you may start 20 mg of lisinopril daily. DIAGNOSIS: Head ache; Hypertension Normal [facility] ED Patient Education Noteon 06-26-2023 ED [...] blood pr (more content not included)... Normal [facility] ED Patient Summaryon 023 ED Patient Summary [place] [id number] Patient Discharge Instructions Person Information Name: JESSENIA WING Age: 52 Years Arrival Date: 06/26/2023 18:31:10 Discharge Diagnosis: Head ache; Hypertension Primary Care Physician: Pb BAUMAN DO Provider Information Primary Provider: Everardo Perera DO Advanced Talcer:None The exam and treatment you received in the Emergency Department were for an urgent problem and are not intended as complete care. It is important that you follow up with a doctor, nurse practitioner, or physician?s assistant director of security for ongoing care. If your symptoms become [...] Instructions: With: Address: When: Pb BAUMAN [address] [facility] [place] [phone] Business (1) In 3 days 06/29/2023 Comments: [...] opioids can be used to help relieve smtsfzpc-bm-ivxzdt pain and are often prescribed following a [...] Drug Administration (more content not included)... Normal [facility] Multi-Wound Charton 06-26-20 Multi-Wound Chart [id number] 4#1.00TIFF Normal [facility] Nursing Assessment - Woundon 06-26-2023 Nursing Assessment - Wound [id number] 9#2.00TIFF Normal [facility] Nursing Assessment - Wound [id number] 8#1.00TIFF Normal [facility] PT & PTTon 06-26-2023 aPTT Coag (PPP) [Time] 31.8 second(s) Normal 25.1-36.5 [facility] Comment on above: Result Comment: Para [...] the same coagulation reagent and instrumentation as [facility]. Currently there are no coagulation studies available worldwide for children to 14 days, and no normal ranges. Heparin therapeutic range (represented by Anti-Factor Xa activity of 0.2 - 0.4 U/mL) corresponds to PTT of 56.6 - 109.0 sec. Performed By: #### 1 [id number], [id number], [id number], [id number], [id number] ####[facility] [address] [place] [address] PT Coag (PPP) [Time] 10.7 second(s) Normal 9.4-12.5 [facility] Comment on above: Result Comment: 15 [...] the same coagulation reagent and instrumentation as [facility]. Currently there are no coagulation studies available worldwide for children to 14 days, and no normal ranges. Performed By: #### 1 [id number], [id number], [id number], [id number], [id number], [id number] ####[facility] [address] [place] [address] PT & PTTOrdered By: Franko jenkins on 06-26-2023 INR Coag (PPP) [Relative time] 1.0 {INR} Invalid Interpretation Code [facility] Auto Coag Comment on above: Interpretive Data: [...] 3.0 ? 4.5 Performed By: #### 1 [id number], [id number], [id number], [id number], [id number], [id number] ####[facility] [address] [place] [address] Troponin 0 Hr.Ordered By: [employer] on 06-26-2023 Troponin 2.50 pg/mL Low 10.10-27.10 [facility] Comment on above: Interpretive Data: Marlo spivey 95% CI (Confidence Interval) PPV (Positive Predictive Value) for myocardial infarction in females is 38 pg/mL, in males 51 pg/mL. The results should be used in conjunction with clinical conditions of myocardial infarction. (Access High Sensitivity Troponin I Instructions For Use, Tricia Willow, February 2018) Result Comment: The 95% CI (Confidence Interval) PPV (Positive Predictive Value) for myocardial infarction in females is 38 pg/mL, in males 51 pg/mL. The results should be used in conjunction with clinical conditions of myocardial infarction. (Access High Sensitivity Troponin I Instructions For Use, Tricia Tunica, February 2018) Performed By: #### 1 [id number], [id number], [id number], [id number], [id number] ####[facility] [address] [place] [address] XR Chest Single Viewon 06-26 XR Chest [...] mGy = na DAP = na Normal [facility] eGFRon 06-26-2023 GFR/1.73 sq M.predicted among non-blacks MDRD (S/P/Bld) [Vol rate/Area] mL/min/{1.73_m2} Normal >=59 [facility] Comment on above: Order Comment: Order added by Discern Expert. Performed By: #### 1 [id number], [id number], [id number], [id number], [id number] ####[facility] [address] [place] [address] Reminderson 03-12-2023 Reminders - From: Morena Rousseau CNP To: Miya Tenorio; Sent: 03/05/2023 15:23:19 EDT Show up: 03/05/2023 15:24:00 EDT Subject: Ambulatory Reminder Reminder/Recall Colonoscopy in 2032. 02/05/2033 10 year colon recall Normal [facility] Gastroenterology Office/Clin ic Noteon 03-05-2023 Gastroenterology [...] fluticasone propionate (more content not included)... Normal [facility] Comment on above: Result Comment: Elec tronically Signed By: Morena Rousseau CNP\.br\Date and Time Signed: 03/05/23 15:29 EDT Patient [...] getting enough exercise. ? Smoking. ? Taking wqoj-fpg-rvgkuvo pain medicines, like aspirin and ibuprofen. ? [...] these instructions at home: Medicines ? Take elyp-chd-eyswjyt and prescription medicines only as told by your health care provider. ? If told by your health care provider, take a fiber supplement or probiotic. Constipation prevention Your condition may cause constipation. To prevent or treat constipation, you may need to: ? Drink enough fluid to keep your urine pale yellow. ? Take balg-qck-gfeqqdo or prescription medicines. ? Eat foods that [...] provider. Document Revised: 01/20/2020 Document Reviewed: 01/20/2020 [place] Patient Education ? 2022 Definiens. Peptic Ulcer A peptic ulcer is a [...] hospitalized in a (more content not included)... Normal [facility] Reminderson 02-18-2023 Reminders - From: Harvey Charles To: MACARIO - Reminders/Recalls; Sent: 02/18/2023 15:57:52 EDT Show up: 01/04/2033 15:57:00 EDT Subject: Ambulatory Reminder Due Date/Time: 02/05/2033 15:57:00 EDT Reminder/Recall Repeat colonoscopy in 10 years(2032) Normal [facility] Postoperative Documentson Postoperative Documents [id number] 1#1.00CD:127 Normal [facility] IntraOperative Documentson 0 02-10-2023 IntraOperative Documents [id number] 3#1.00CD:127 [facility] Consenton 02-06-2023 Consent [id number] 9#1.00CD:127 Normal [facility] Discharge Instructionson Discharge Instructions [id number] 9#1.00CD:127 [facility] Main OR Intraoperative Recor don 02-06-2023 Main OR Intraoperative Record IntraOp Document Type FT Summary Primary Physician: Keith CHUNG MD Finalized Date/Time: 02/06/23 09:01:34 Pt. Name: MECCAJESSENIA /Sex: 1970 Female Med Rec #: [id number] Physician: Keith CHUNG MD Financial #: [id number] Pt. Type: O Room/Bed: Endo OP 02/04 [...] time at 1316./GENNYRN Colonoscopy start time at 1317./GENNY,RN 02/06/23 chart opened for charge review per Stevie Hopper RN. MN Case Attendance FT Entry 1 Entry 2 Entry 3 Case Attendee Costa RYDER, Romana Copeland STEAM PIPE FITTER, Monica Tovar Role Performed BATCHMAKER Staff - Other Scrub - Primary Time In 02/05/23 13:06:00 02/05/23 13:06:00 02/05/23 13:06:00 Time Out 02/05/23 13:28:00 02/05/23 13:28:00 02/05/23 13:28:00 Procedure EGD AND COLONOSCOPY(.) EGD AND COLONOSCOPY(.) EGD AND COLONOSCOPY(.) Comments Dr. Adams is supervising Last Modified By: Kaleigh Menendez RN, RN, Kaleigh Grimes RN 02/05/23 13:28:43 02/05/23 13:28:43 02/05/23 13:28:43 Entry 4 Entry 5 Case Attendee OMAR CROCKER, Kaleigh Sellers RN Role Performed Surgeon - Primary Auto Technician Mechanic - Primary Time In 02/05/23 13:06:00 02/05/23 13:06:00 Time Out 02/05/23 13:28:00 02/05/23 13:28:00 Procedure EGD AND COLONOSCOPY(.) EGD AND COLONOSCOPY(.) Comments Last Modified By: Kaleigh Menendez RN, RN, Kristin N 02/05/23 13:28:43 02/05/23 13:28:43 Perioperative Protocols FT [...] and tissue Entry 1 Skin Integrity Intact, [place], Warm, and Skin Abnormality No Dry Outcomes Met? Yes Last Modified By: Kaleigh Menendez RN 02/05/23 13:10:51 Post-Care Text: The patient is free from signs and symptoms of injury caused by extraneous objects Patient Positioning FT Pre-Care Text: Identifies physical alterations that require additional precautions for procedure-specific positioning, verifies (more content not included)... Normal [facility] Consent for Treatmenton Consent for Treatment [id number] #1.00CD:127 Normal [facility] Discharge Instructionson Discharge Instructions JESSENIA WING [...] 24 hours Discharge Diet(s) Regular Pharmacy Information [facility] Discharge Instructions Discharge Instructions New Follow Up Appointments after Discharge Follow Up with OMAR CROCKER, LAINEY Parker, [facility] When: Comments: Call for any problems. Office will call to schedule follow up appointment Where: [address] [place] [address] Medications What How Much When Instructions Next Dose Changed omeprazole (omeprazole 20 mg Cap-DR) 1 Capsules By Mouth Every day Changed omeprazole (omeprazole 40 mg Cap-DR) 1 Capsules By Mouth Every day Pickup at [facility] Unchanged albuterol (albuterol HFA [...] Tablets By Mouth Every day Pharmacy Information [facility] 1986: [address] [place], [place] [id number] [phone] Test Results No qualifying data available. Allergies [...] activities are safe for you. ? Take nzwr-eyc-rzxckme and prescription medicines only as told by [...] you f (more content not included)... Normal [facility] Comment on above: Result Comment: Elec tronically Signed By: Rachel RN, Marcie\.br\Date and Time Signed: 02/05/23 13:37 EDT Endoscopic [...] otherwise normal colonoscopy Images Procedure images: Rec1_hd_video_2022_0 __[id number]_201.ewa g Rec1_hd_video_2022_0 __25_20_164.ewa g Rec_hd_video_0 _24_56_261.ewa g . Post-Procedure Complications: none. Estimated [...] Return to activities:: After 24 hours. Normal [facility] Comment on above: Result Comment: Elec tronically Signed By: Keith CHUNG MD\.br\Date and Time Signed: 02/05/23 13:31 EDT Other Comment: Analia monique Attachment - attachment storage system not supported [id number] Can be viewed in source systemMissing Attachment - attachment storage system not supported [id number] Can be viewed in source systemMissing Attachment - attachment storage system not supported [id number] Can be viewed in source system Endoscopic [...] Distal esophageal Schatzki ring, dilated using 60 Yi Mckoy dilator 2. Mild gastric erosions, biopsied to rule out H. pylori 3. Normal duodenal mucosa Images Procedure images: Rec1_hd_video_2022_0 8_02T12_[id number]_13_111.ewa g Rec1_hd_video_ 8__18_36_918.ewa g Rec1_hd_video_2022_ 8_T1_19_35_722.ewa g . Post-Procedure Complications: none. Estimated blood loss: none. Specimens: sent to pathology. Devices/ implants: none left in place. Impression and Plan 1. Distal esophageal Schatzki ring, dilated using 60 Yi Mckoy dilator 2. Mild gastric erosions, biopsied to rule out H. pylori Recommendations: Follow-up in GI clinic in 2 weeks Omeprazole 40 mg p.o. daily Normal [facility] Comment on above: Result Comment: Elec tronically Signed By: Keith CHUNG MD\.br\Date and Time Signed: 02/05/23 13:30 EDT Other Comment: Analia monique Attachment - attachment storage system not supported [id number] Can be viewed in source systemMissing Attachment - attachment storage system not supported [id number] Can be viewed in source systemMissing Attachment - attachment storage system not supported [id number] Can be viewed in source system Main OR PACU I Recordon Main OR PACU I Record PACU Phase I Document Type FT Summary Primary Physician: Keith CHUNG MD Finalized Date/Time: 02/05/23 14:25:47 Pt. Name: JESSENIA WING Mg/Sex: 1970 Female Med Rec #: [id number] Physician: Keith CHUNG MD Financial #: [id number] Pt. Type: O Room/Bed: Endo OP 02/04 [...] By: Marcie Ramos RN 02/05/23 14:25 Normal [facility] Main OR Preoperative Recordo n 02-05-2023 Main OR Preoperative Record Holding Area Document Type FT Summary Primary Physician: Keith CHUNG MD Finalized Date/Time: 02/05/23 12:11:06 Pt. Name: JESSENIA WING Mg/Sex: 1970 Female Med Rec #: [id number] Physician: Keith CHUNG MD Financial #: [id number] Pt. Type: O Room/Bed: Endo OP 02/04 [...] 0750, states stool is clear liquid yellow /MDRN Finalized By: Cristiane Corey RN Document Signatures Signed By: Cristiane Corey RN 02/05/23 12:11 Normal [facility] Monitor Recordon 02-05-2023 Monitor Record [id number] 4#1.00CD:127 Normal [facility] Patient Education - Texton 0 02-05-2023 [...] unsweetened, w/added ascorbic acid 1 cup 0.5 [place] 1 cup 0.7 Vegetables Cooked Green beans 1 cup 4.0 Carrots 1/2 cup sliced 2.3 Peas 1 cup 8.8 Potato (baked, with skin) 1 medium potato 3.8 Raw [place] (with peel) 1 cucumber 1.5 Lettuce 1 [...] IMMEDIATE MEDIC (more content not included)... Normal [facility] Progress Note-Physicianon Progress Note-Physician Patient: JESSENIA [...] Daily, # 135 tab(s), Refills(s) 3, Pharmacy: [facility], 167, cm, 12/18/22 9:30:00 EDT, Height/Length Dosing, 106.5, kg, 12/18/22 9:30:00 EDT, Weight Dosing albuterol HFA 90 mcg/inh MDI: 2 puff(s), Inhalation, QID, 1 EA, Refill(s) 2, [facility], 167, cm, 05/25/20 16:49:00 EST, Height/Length Dosing, 112.5, kg, 05/25/20 16:49:00 EST, Weight Dosing fluticasone propionate 232 mcg/inh inhalation powder: 232 mcg, Inhalation, q12hr, Swallowed rather than inhaled rinse mouth and throat after use, # 1 EA, Refills(s) 5, Pharmacy: [facility] 1985, 167, cm, 10/25/22 14:36:00 EDT, Height/Length Dosing, 110.1, kg, 10/25/22 14:36:00 EDT, Weight Dosing... lisinopril 10 mg Tab: 10 mg = 1 tab(s), Oral, Daily, # 90 tab(s), Refills(s) 1, Pharmacy: [facility] 1985, 167, cm, 05/16/22 14:29:00 EST, Height/Length Dosing, 100.9, kg, 05/16/22 14:29:00 EST, Weight Dosing omeprazole 20 mg Cap-DR: 20 mg = 1 cap(s), Oral, Daily, # 90 cap(s), Refills(s) 3, Pharmacy: [facility] 1985, 167, cm, 12/18/22 9:30:00 EDT, Height/Length Dosing, 106.5, kg, 12/18/22 9:30:00 EDT, Weight Dosing omeprazole 40 mg Cap-DR: 40 mg = 1 cap(s), Oral, Daily, # 30 cap(s), Refills(s) 1, Pharmacy: [facility] 1985, 167, cm, 02/05/23 12:12:00 EDT, Height/Length [...] All Problems Allergic rhinitis / SNOMED CT 260784462 / Confirmed Anemia / SNOMED CT 880859551 / Confirmed Anxiety / SNOMED CT 69729171 / Confirmed Breast cancer screening / SNOMED CT 874064302 / Confirmed Colon cancer screening / SNOMED CT 314840312 / Confirmed Dysphagia / SNOMED CT 40774730 / Confirmed Heartburn / SNOMED CT 67772871 / Confirmed History of left knee replacement / SNOMED CT 0009971754 / Confirmed HTN (hypertension) / SNOMED CT 5060087764 / Confirmed Medial meniscus tear / SNOMED CT 354132241 / Confirmed left Non-smoker / SNOMED CT 05530985 / Confirmed Normocytic anemia / SNOMED CT 678148704 / Confirmed Osteoarthritis / SNOMED CT 8850970366 / Confirmed left knee Tenderness of lymph node / SNOMED CT 607123439 / Confirmed Venous insufficiency / SNOMED CT 467907650 / Confirmed Resolved: BACTERIAL PNEUMONIA, UNSPECIFIED / ICD-9-CM 482.9 Resolved: Hypertension / SNOMED CT 7086512125 Resolved: Microcytosis / SNOMED CT 104031166 Resolved: None / SNOMED CT 424564466 Resolved: Screening for cardiovascular condition / SNOMED CT 745224413 Resolved: Ventral hernia / SNOMED CT 5937511702 Canceled: Blood pressure elevated without history of HTN / SNOMED CT 0266730478 Canceled: Bronchitis with wheezing / SNOMED CT 3767179629 Canceled: Obesity (BMI 30-39.9) / SNOMED CT 784424500 Physical Examination Vital Signs 02/05/2023 13:25 EDT [...] 118 mmH (more content not included)... Normal [facility] Comment on above: Result Comment: Elec tronically Signed By: Munir Adams DO\.br\Date and Time Signed: 02/05/23 13:37 EDT Progress Note-Physician Patient: JESSENIA WING Age: 52 [...] Daily, # 135 tab(s), Refills(s) 3, Pharmacy: [facility], 167, cm, 12/18/22 9:30:00 EDT, Height/Length Dosing, 106.5, kg, 12/18/22 9:30:00 EDT, Weight Dosing albuterol HFA 90 mcg/inh MDI: 2 puff(s), Inhalation, QID, 1 EA, Refill(s) 2, [facility], 167, cm, 05/25/20 16:49:00 EST, Height/Length Dosing, 112.5, kg, 05/25/20 16:49:00 EST, Weight Dosing fluticasone propionate 232 mcg/inh inhalation powder: 232 mcg, Inhalation, q12hr, Swallowed rather than inhaled rinse mouth and throat after use, # 1 EA, Refills(s) 5, Pharmacy: [facility], 167, cm, 10/25/22 14:36:00 EDT, Height/Length Dosing, 110.1, kg, 10/25/22 14:36:00 EDT, Weight Dosing... lisinopril 10 mg Tab: 10 mg = 1 tab(s), Oral, Daily, # 90 tab(s), Refills(s) 1, Pharmacy: [facility], 167, cm, 05/16/22 14:29:00 EST, Height/Length Dosing, 100.9, kg, 05/16/22 14:29:00 EST, Weight Dosing omeprazole 20 mg Cap-DR: 20 mg = 1 cap(s), Oral, Daily, # 90 cap(s), Refills(s) 3, Pharmacy: [facility], 167, cm, 12/18/22 9:30:00 [...] All Problems Allergic rhinitis / SNOMED CT 695769085 / Confirmed Anemia / SNOMED CT 996953589 / Confirmed Anxiety / SNOMED CT 87446699 / Confirmed Breast cancer screening / SNOMED CT 655732261 / Confirmed Colon cancer screening / SNOMED CT 609102526 / Confirmed Dysphagia / SNOMED CT 85498568 / Confirmed Heartburn / SNOMED CT 66390748 / Confirmed History of left knee replacement / SNOMED CT 7363597030 / Confirmed HTN (hypertension) / SNOMED CT 5857680009 / Confirmed Medial meniscus tear / SNOMED CT 854126838 / Confirmed left Non-smoker / SNOMED CT 49179217 / Confirmed Normocytic anemia / SNOMED CT 629266989 / Confirmed Osteoarthritis / SNOMED CT 0236080253 / Confirmed left knee Tenderness of lymph node / SNOMED CT 706328294 / Confirmed Venous insufficiency / SNOMED CT 381436635 / Confirmed Resolved: BACTERIAL PNEUMONIA, UNSPECIFIED / ICD-9-CM 482.9 Resolved: Hypertension / SNOMED CT 2504140668 Resolved: Microcytosis / SNOMED CT 299282467 Resolved: None / SNOMED CT 478367550 Resolved: Screening for cardiovascular condition / SNOMED CT 334703073 Resolved: Ventral hernia / SNOMED CT 3161230504 Canceled: Blood pressure elevated without history of HTN / SNOMED CT 7037313504 Canceled: Bronchitis with wheezing / SNOMED CT 6724492386 Canceled: Obesity (BMI 30-39.9) / SNOMED CT 232265944, Active Problems (15) Allergic rhinitis Anemia Anxiety Breast cancer screening Colon cancer screening Dysphagia Heartburn History of left knee replacement HTN (hypertension) Medial meniscus tear Non-smoker Normocytic anemia Osteoarthritis Tenderness of lymph node Venous insufficiency Histories Past Medical History: Resolved None (323145272): Resolved. Ventral hernia (2824651413): Resolved. BACTERIAL PNEUMONIA, UNSPECIFIED (482.9): Resolved. Screening for cardiovascular condition (200945423): Resolved. Hypertension (6625575893): Resolved. Microcytosis (922226335): Resolved. Family History: Depression Child Depression Mother () Bipolar Sister Schizophrenia Brother Procedure history: Sclerotherapy ([id number]) on 09/02/2022 at 51 Years. Revision ([id number]) on 12/20/2020 at 50 Years. Comments: 12/22/2020 13:37 CATT - Marcelina Powell left knee arthroplasty Sclerotherapy ([id number]) on 10/05/2020 at 49 Years. left TKR on 11/18/2016 at 45 Years. knee arthr (more content not included)... Normal [facility] Comment on above: Result Comment: Elec tronically Signed By: Munir Adams DO.br\Date and Time Signed: 02/05/23 12:26 EDT CNOVon 12-25-2022 CNOV Office Visit (ORTHCO) JESSENIA WING ([id number]) 1970 F Date Time Provider Department 12/25/22 [...] knee joint Informed Consent Consent Obtained: Verbal [place] Protocol A moment to CARE was completed. [...] recreational acti (more content not included)... Normal [facility] XR KNEE 4V AP/PA BOTH+LAT/ME [...] Severe medial compartment joint space narrowing with mwfl-ny-xoyj contact. Small joint effusion. Venous varicosities are noted in the soft tissues. Left total knee arthroplasty is present. IMPRESSION: Advanced medial compartment predominant osteoarthritis of the right knee. Senior Planning Manager: JAM Transcribe Date/Time: Dec 25 2022 11:24A Dictated by : KATERINE BOWSER MD This examination was interpreted and the report reviewed and electronically signed by: KATERINE BOWSER MD on Dec 25 2022 11:24AM EST [id number] Normal [facility] Consent for Procedure/Surger yon 12-19-2022 Consent for Procedure/Surgery [id number] 9#1.00CD:127 Normal [facility] Gastroenterology Office/Clin ic Noteon 12-19-2022 Gastroenterology [...] with voice recognition artificial intelligence software, specifically BookingBug, Exper[employer] and or [employer]. Substitutions may have occurred due to the inherent limitations of voice recognition and artificial intelligence software. ATTESTATION: Documentation services were performed after patient or guardian consented to allow [employer] to record this visit. STEFFI group insurance specialist and provider reviewed before signing. STEFFI: [...] Revision ( (more content not included)... Normal [facility] Comment on above: Result Comment: Elec tronically Signed By: Mayco Mauro\.br\Date and Time Signed: 12/18/22 13:34 EDT\.br\Electronically Co-Signed By: OMAR CROCKER, Keith\.br\Date and Time Co-Signed: 12/19/22 09:04 EDT Ambulatory Visit Summaryon 0 12-18-2022 Ambulatory Visit Summary JESSENIA WING :1970 MRN:[id number] Visit Date:12/18/2022 Ambulatory Visit Instructions Your Diagnosis [...] Screening for cardiovascular condition Ventral hernia Normal [facility] Consent for Treatmenton 12-05 Consent for Treatment [id number] #1.00CD:127 Normal [facility] Family Medicine Office/Clini c Noteon 12-16-2022 [...] left lower leg) Patient seen in the [facility]. Following exam discussed exam is concerning [...] When Contact Information Pb BAUMAN DO, DEJUAN [address] [place] [address]- Additional Instructions: Patient Education BMI for Adults Edema, Gxtv-kk-Ersk Musculoskeletal Pain Problem List/Past Medical History Ongoing Allergic rhinitis Anemia Breast cancer screening Dysphagia History of left knee replacement Non-smoker Normocytic anemia Tenderness of lymph node Venous insufficiency Historical BACTERIAL PNEUMONIA, UNSPECIFIED Hypertension Microcytosis None Screening for cardiovascular condition Ventral hernia Procedure/Surgical History Sclerotherapy (09/02/2022), Revision (12/20/2020), Scl (more content not included)... Normal [facility] Comment on above: Result Comment: Elec tronically Signed By: Sri PUGA CNP\.miki\Date and Time Signed: 12/16/22 11:49 EDT Patient Educationon 12-17-19 23 Patient Education Nutrition BMI for Adults What [...] numbers. This can be done either in [place] or metric measurements. Note that charts and online BMI calculators are available to help you find your BMI quickly and easily without having to do these calculations yourself. To calculate your BMI in [place] measurements: 1. Measure your weight in [...] for Disease Control and Prevention: www.cdc.gov ? [place] Heart Association: www.heart.org ? National Heart, Lung, and Blood [place]: www.nhlbi.nih.gov Summary ? Body mass index (BMI) is a number that is calculated from a person's weight and height. ? BMI may help estimate how much of a person's weight is composed of fat. BMI can help identify those who may be at higher risk for certain medical problems. ? BMI can be measured using [place] measurements or metric measurements. ? BMI charts are used to identify whether you are underweight, normal weight, overweight, or obese. This information is not intended to replace advice given to you by your health care provider. Make sure you discuss any questions you have with your health care provider. Document Revised: 03/15/2020 Document Reviewed: 01/21/2020 [place] Patient Education ? 2022 Definiens. Obstetrics and Gynecology Edema Edema is when [...] or shiny. (more content not included)... Normal [facility] US LE Venous Duplex Lefton 0 12-16-2022 US LE Venous Duplex Left Exam Date/Time: 12/16/2022 [...] M.D. Transcribed by: ANDRAE Technologist: MYLA Connell [facility] Family Medicine Office/Clini c Noteon 11-29-2022 [...] With When Contact Information ANA CHÁVEZ CNP [address] [place] [address] Additional Instructions: Patient Education Dysphagia Exercising to [...] Recorded SARS (more content not included)... Normal [facility] Comment on above: Result Comment: Elec [...] these instructions at home: Medicines ? Take vuqm-fmu-zjmmrdr and prescription medicines only as told by your health care provider. ? If you were prescribed an antibiotic medicine, take it as told by your health care provider. Do not stop taking the antibiotic even if you start to feel better. Eating and drinking ? Make any diet changes as told by your health care provider. ? Work with a diet and supervisor nutritional yeast (dietitian) to create an eating plan that [...] person's throa (more content not included)... Normal [facility] Ambulatory Visit Summaryon 0 11-22-2022 Ambulatory [...] AM EDT With: Keith CHUNG MD Where: [facility] Ambulatory Visit Summaryon 0 11-03-2022 Ambulatory Visit Summary JESSENIA WING :1970 Visit Date:11/03/2022 Ambulatory Visit Instructions Your Diagnosis Acute viral bronchitis BMI 38.0-38.9,adult Your Care Team Attending Physician - DIONI Scott APRN, [place] X Primary Care Physician - Pb BAUMAN DO [...] Follow-Up Appointments Friday 4:20 PM EDT With: SAIRA DAVIS, ANA W Where: [facility] [place] [address] [address]- \.br\ You Need to Schedule the Following Appointments\.br\ Follow Up with MERNA GARCES, DEJUAN Calderon When: \.br\ Where:\.br\ [address]\.br\ [place] [address]-\.br\ \.br\ Medications\.br\ What How Much When Why Instructions\.br\ New albuterol (Albuterol (Eqv-ProAir HFA) 90 mcg/ inh inhalation aerosol) 2 Puffs Inhalation Every 4 hours as needed for Shortness of breath or wheezing Acute viral bronchitis Duration: 21 Days Pickup at [facility] 1985\.br\ New benzonatate (benzonatate 100 mg Cap) 1 Capsules By Mouth 3 times a day as needed for Cough Acute viral bronchitis Duration: 10 Days Pickup at [facility] 1985\.br\ New methylPREDNISolone (Medrol 4 mg Tab) 1 Packets By Mouth As Directed Acute viral bronchitis Duration: 6 Days as directed on package labeling Pickup at [facility] 1985\.br\ Unchanged albuterol (albuterol HFA 90 mcg/ [...] if questions or concerns \.br\ Pharmacy Information\.br\ [facility] 1986: [address] [place], [place] [id number] [phone]\.br\ Allergies\.br\ No Known Medication Allergies\.br\ seasonal ,dust, [...] instructions at home:\.br\ \.br\ ? 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 \.br\ Avoid contact with people who [...] have a fever.\.br\ Get help [facility]Clini c Noteon 11-03-2022 [...] for 21 day(s), 6.7 gm, Refill(s) 0, [facility] 1985, 167, cm, 11/03/22 12:20:00 EDT, Height/Length Dosing, 108.1, kg, 11/03/22 12:20:00 EDT, Weight Dosing benzonatate, 100 mg = 1 cap(s), Oral, TID, PRN Cough, X 10 day(s), # 30 cap(s), Refills(s) 0, Pharmacy: [facility] 1985, 167, cm, 11/03/22 12:20:00 EDT, Height/Length Dosing, 108.1, kg, 11/03/22 12:20:00 EDT, Weight Dosing methylPREDNISolone, = 1 packet(s), Oral, As Directed, as directed on package labeling, X 6 day(s), # 21 tab(s), Refills(s) 0, Pharmacy: [facility] 1985, 167, cm, 11/03/22 12:20:00 [...] When Contact Information Pb BAUMAN DO, DEJUAN [address] [place] [address]- Additional Instructions: Patient Education Acute [...] Denies Al (more content not included)... [facility] Comment on above: Result Comment: Elec [...] numbers. This can be done either in [place] or metric measurements. Note that charts and online BMI calculators are available to help you find your BMI quickly and easily without having to do these calculations yourself. To calculate your BMI in [place] measurements: 1. Measure your weight in [...] for Disease Control and Prevention: www.cdc.gov ? [employer] Heart Association: www.heart.org ? National Heart, Lung, and Blood [place]: www.nhlbi.nih.gov Summary ? Body mass index (BMI) is a number that is calculated from a person's weight and height. ? BMI may help estimate how much of a person's weight is composed of fat. BMI can help identify those who may be at higher risk for certain medical problems. ? BMI can be measured using [place] measurements or metric measurements. ? BMI charts are used to identify whether you are underweight, normal weight, overweight, or obese. This information is not intended to replace advice given to you by your health care provider. Make sure you discuss any questions you have with your health care provider. Document Revised: 03/15/2020 Document Reviewed: 01/21/2020 [employer] Patient Education ? 2022 [employer]. Pulmonary Medicine Acute Bronchitis, Adult Acute bronchitis [...] condition is (more content not included)... [facility] Office/Clini c Noteon 10-28-2022 [...] to discuss effectiveness of treatment plan. Ordered: [facility] Internal Ambulatory Referral 2. BMI 39.0-39.9,adult (Z68.39: Body mass index [BMI] 39.0-39.9, adult) Education attached on health risks of obesity and discusses healthy, balanced diet low in sugar, fat, carbs and exercise regimen ATTESTATION: Documentation services were performed after patient or guardian consented to allow Kia Richard Miranda to record this visit. STEFF[employer] group insurance specialist and provider reviewed before signing. STEFFI: [...] HFA 90 (more content not included)... [facility] Comment on above: Result Comment: Elec [...] fruits, and frozen vegetables. ? Avoid buying sncsi-jo-jus foods, such as pre-cut fruits and vegetables and pre-made salads. ? If possible, shop around to discover where you can find the best prices. Consider other retailers such as dollar stores, larger wholesale stores, local fruit and vegetable the grafter, and farmers markets. ? Do not shop [...] Tips for buyi (more content not included)... [facility] Ambulatory Visit Summaryon 0 10-25-2022 [...] Follow-Up Appointments 2022 3:30 PM EDT With: Stanislaw CROCKER, Rita Long Where: [facility] Friday 4:20 PM EDT With: ANA CHÁVEZ CNP Where: [facility] Coding Summary.on 09-03-2022 Coding Summary. [id number] Gh0bWw+PGhlYWQ+PE1FV BUbY95thJTolX8FZ1fJX X1IQFNPDQHLPQ7IBA9xk KX4DImuN9NaoeVd BuissFAuGW69LRx6UPD1 cWrhNErtaE8vjXAgC6z9 YuExYN78oT32MRyeQRMn TpQ1YhOnxboxuTXq Y1yvOkGweIGxLdk+PHRh YmxlIHdpZHRoPScxMDAl WmWnnSztXK3kLe3fHTXt LWNvbGxhcHNlOiBj b0hdWZAvPZsgAU5eoHlz W7BicSW9SWPrd1c7Mo28 dHI+TWLvAHR7qMbkFBxv t098KtNqc2jfWTH3 yHDlFSvyJSY1D02vj5H5 RMVcLUDkBFB4aTO7vI2g hKlkllarT2VzyKYnRfH0 WNV7kLQfiK0vrHdj naiunZ5uDsf+O29OLQ8M WQMOQG7XFyt9A7OzOcwl dHI+FW14OXLiEK90aRJq lDUnt2sdcJq7TrXa LKRlDEV2oKqlCHsol2Wn BEDmS94rmUUyn9T9OACk rQecmIEwEiBrmGP9aH4w DAqhnduvn0bonvcv Fhlef7dcen48fB52V88g PLnwLTBsIAY9BWNjRWEz sSoook5trR9jGn7+IDxj l0cpt3unwBe2YbLz ZNHtknOgjYomWVU7c6Xj Er18P2YhlHgfa8TyUgj2 rf00oORvm9Q3gRB4MSdj ENFldR5fMWvvJvX5 RGMqCeYjtK29fEVnDUdv Qv0elRlhjKqxJV5lFSQi nhhnSGUmtT2hKSZfmTXo fEaxGR6tDAUmhnxz s171UgXcQQQ9KLAbpDOv M2ZjxJ7sOhPrLWGiGLZf E8SjqSDgJAdtJ356HWjn VhN9RZSgyhPoV5Gw JRYgdBndOtL6t2U6St8Y v1AmuaneLIE5GNjjDOHh RtY1XwKaBeA6D7LxWvv9 ZWVzuOinAJ0mT3Pv JSWwzoefmzpocLG7XFAx MRPscV83kVIwZTsjSh7e m0M0a989LDUuOHVthY07 Oe6iqMdqPKPhxKXH nM4mljwht4xyqpeiCwHe POFgUKj1MKw0QFUvlAkn WhTjTKM2ZzT1HMW5qBGw cP1oeRwexwwviD0w Oyc+E77xnQ2zLOA8GSL2 yxkkRSXuziRwXZ83SE35 O8JsRkacdJLngGJ+PGRp kePmiXavFT6eOkYg n7noo3WeEXksB9JnAERs DJidMrc5BGNuYTN5qXC9 rQ6pTTQcXTlbv4V3bEN0 N6DhgjIwkt5eu1eq PLJcSSlmQ67xqRXgp0U8 ARDlyVB8FPHjjHczOkXt vS47Qgu+XXFstKufy1Dy Bcwpk0yny8efkBc5 IjMwJSIgdmFsaWduPSJ0 z2RjLa60B39sICjfLFEg CFPtHALhSJKgxMiysh9g uX0iZi9+PGNvbCB3 dKN0fQ4qULFcWwZ4BMmx R635YoGyaCGbKsipb4tb a5jpdBz0GsItVWYmmwKt dDunHSM0f4XlBj51 F94gABaeELNkZRVyTCZq AVLixQkhra3lgT6lOl7+ IG4qu4jzjp31fO07lLU+ UCCsPRZ9rPpfYAqk MEMvkP4vHCktOvO7WTIq EhTtxM75rZAwRYtuNf3o tJjqhJofMM5tJIIjrfam r681HuNsr8bjVVMy kHIcXNlqNGI6G70rl4D4 ALKyLUOeWTI2xIJ7tC3u bGlnbjogbGVmdDsgdmVy ePqkIEczBThnF756 IHRvcDsnPlBhdGllbnQg TxSxMAr8P6QeMcn6XXZq zCwvUJ3cmELqNCjqBs8a yHzenTkrYB4kKUZt cxjcj170BwXvw0kgZPTr pAYzGBnhZHL4Q02yk6S9 PVBsRATdOAZ7gKC2kY8u bGlnbjogbGVmdDsg sjJinGriESuvYLunP966 IHRvcDsnPkJpcnRoIERh pBA8ZT74VP13lIHnm7Q3 cWJ3Q1HoOANivvqo wdtipXD4JOIoZHSinC86 Wa2iiGzyBf9pPBYrZZG7 AONlxHApI3VasD9gWeIz CCHkFIBtU2NtdVTw XSuuC886VYxtFnT5FEOk tcGkH5VdZYFhjUrvSxO8 l2L1Zj5HF1B2UF70NJ65 dZRty7D9eMZ2Q4Do TJBqrtwucowqnFI5YZXc KQXbuO08Ic1guCgbGp3g RZElYSD2GKJvqZDaZ9Yi gZ2jEeZuQXYvEULe P0UxvLAmZAoyD588ALgf VwY3PUFkdoNbU3FqXEVm vHvxVcW1z9D3Mr8RYTa9 FF35PC64gXQyx0W1 dMY2D1GjIMQasiqygkrh hBX1ZEZqVHWkaR13Uo4s nLedPi3rSKJrWTA5CAVb eIJyP4MuvD8bXsRl YSNmBWEuX5YwqHLaRLlc R472RPucTrI0CISivrTk S0MaSEUprHewVgS4a8N8 Eg4MWTPaOD34GND1 jZQ7ZX96ZW06G7VgPzyn dGFibGU+PHRhYmxlIHdp ZHRoPScxMDAlJyBzdHls YI2mUd4nHGPfBOAc xIjkuKNaMiTtf3mfZRMp MFhwVP7ueRpbF7RvuAS8 ORRnc0c8Eo65Q16nR1Kb dXA+UJHsgWQ0vVC9 rK5wBxZySmX4ILqkH436 YoHqcRMoVugni3hvb1gh kPh1QaH3OPBvefRlsFru PQQ6a3GiJw29S01l IHdpZHRoPSIxNSUiIHZh mKhkbf9pxO4eEq0+PGNv pOU4aIJ7oS1kKeEeZyF2 DPwcI763YeIgpYXy Bypky2oln3xgmLx1LuUs OHVjsuJybLqyCPK7w3Fz Xn29U4FnhCblq2XwSgd1 dv01nHNpm4A9cIV1 W7YfZKMtflhahBItcRqk AE6lKAGdylpeYGLmyE3d MWLaD0b6WoGjPmK2QXzg H3NoelF9ATZqoMRm SFvjJQY6R87rt4E9YDVx OJHrTFS4cMB8iH8lyUew bjogbGVmdDsgdmVydGlj YXqbIJssX885KTBv aDgrTQOsrS9kHXCajUXq sEsuPV0qSTRzwgmeXbcD GRAGUhxrC2HTKUhCDalX HV40J7DeFor4UJUn hGlaOB1hlWEzFOveAh7z nQehtPbuEP9jZIFafiwr SFHsmA1cPXXrlGNajOue YC9uBNLhjydfh029 MkUfRZG7IOSgvMVzC6Na oY6uVdVtETAiRTQzA6Va bVWxHNtuD983NYuxHcG8 ZUUmjyGlB3DqDVOx sEdyZxL4r9F5Qx4wCu6g PW9zVJpaRM45SH69tSHw e2J6qDZ6M8UdUEJczjmo lfpzrBQ1ZCRzTRLt kY57mAGfJDvpFl4cd4H4 k882OQEmIULuaR88Wf6y wOssPWQumLGWtW8lveil y4xzhbjjErHaAICt YUt4SZi5TTDeaZqlZqAy QHE2ChY4QEA8hLNigK8e nKzvwtyqjJ3tTgr+NTAg ILYvjkZ6U0AkVhr6 OLSetTdrDS8biKYpDKsz Ke1gwRbciIryOW7oDFIm dbamLKKuqI1sROLgdFZf aSewUX3hTQXrospr q713YhGlOPN8JNDuyIZu Q7KaoZ6eWgWxTVXbHSLe K5JlnBFmTSqcV676RJab KwD9WPUqdlFsH9Fi YKEfdJkoQhS3i1Q3Vd9V LR5bsTI2W2UkKnf3WSKq hAmyKY5niMPmDJerQh9w nZvyhJjiRD4xZBBl gwnpIXNulQ4fWPRwrFOz yQwzHN7dTKGhhwcla603 PbTjXBX9MARtlIIjS7Rb aB6kQpOqYNRgGAZd Y0NzyIGdOXzdD421HIrt SaC6XLEipeRgD1KyZANv sHtiRlY0x1I9Ys5OzWT3 lIY7y9L3X9WbiSDl QDU0MGS8pywzjoe0M6Lf PjwvdHI+HW54SGKcCX39 fBLukNNoo3senGe2ZxDh JCHiKAN0wKqcDNou j8LlEIKyJ20bsCBlq6O8 IGNvbGxhcHNlOyBlbXB0 kG8gYPpyqbndb1zhkwgc Yixmk9dnob58mY35 U32kDZwwUGAeAWXuBKHj SIJyhYmale2yjK7yKz0+ KXXyrIC2aWZ0xB2nHuHh TaV1ZFlaO110CfTp qDJbImktc0lgo2xwiVr0 IjIwJSIgdmFsaWduPSJ0 l7OuTr31P29oNHyhBIHc PSIyMCUiIHZhbGln hk1nlA3uJa6+YR8fv1eu dy25tX81zXE+PHRkIHN0 zJrhYOzrBQTtqD5iTOln HmI2LJBcSnQgeS39 jIYlXXitRi2anVutnKbt RB8uKZTfhrfzc140GuSs u2oeKCXacBMcOXntSBQ6 F89bl5B8ZLNlFSGa BAZ6zCF2lM0pwPirtasp bGVmdDsgdmVydGljYWwt FQwmK534WIThaKxcFeNd iWAtV7wgbiXSUS0f OjwvdGQ+BGWeYTI6cFvm VRmhPFTkmC1fOGLhU8n2 JrDsUcX4SIvsV7OjouS4 IGJvbGQgMTBwdCBU jW4puehjx0eqzbvmNvHf BUXxYIf2HEn4SQGdiVzu FeNqQJV8DxL0ATZ7eNMf iT3exQsljzkteG4s Oyc+RklOOjwvdGQ+PHRk KUN8fRdzIKhpOERltQ0o MPGfI4f5SpCnIgZ7IZcs M2EtkrZ5EMSzuUPc NEUleTTTgS5qfwlmy8tn bnusJaSmYKEoVUd0RSu2 YAEssJhiAdSpAEA5MkC4 UGX2sPZsfN9xsAzj cwofqY4iJzz+TVJOOjwv dGQ+ANHmHOH0cDpaPNhp LTCbaY3qTDGrQ6z6CwUc LhY4XEubI2PnobD0 SWIfoNIaJRPtlTDXrU8p awhpz0naltydKnZgIFPl IKf7SGb8XHFqqCixMdCe BWL8OgB1HET9oBRg pW5ucKrjuatatI8wJip+ ZZF0TRS0ZX76ID71R6Zj PjwvdGFibGU+PHRhYmxl IHdpZHRoPScxMDAl JyBz (more content not included)... [facility] Consent for Procedure/Surger yon 09-03-2022 Consent for Procedure/Surgery [id number]#[id number]:127 [facility] Discharge Instructionson Discharge Instructions [id number]#[id number]:127 [facility] Cardiovascular Reporton 08-08 Cardiovascular Report [id number]#1.00CD:127 [facility] Consent for Treatmenton 08-08 Consent for Treatment [id number] #1.00CD:127 [facility] Inpatient Clinical Summaryon 09-02-2022 Inpatient Clinical Summary [address] [address] Clinical Summary Person Information: Name: JESSENIA WING Age: 51 Years : 1970 Sex: Female PCP: Pb BAUMAN DO Marital Status: Race: White Ethnicity: Non- or Language: Citizen [place] Visit Id: Visit Reason: I82.893//US GUIDED INJECTION SCHLEROTHERAPY Speciality: Acuity: Enc Type: Ambulatory/Same Day Surgery Med Service: Surgery Arrival: 09/02/2022 11:55:38 Discharge: Dispo Type: Address: [address] [place] [phone] Provider Notes: Diagnosis: Problems Active Tenderness of [...] Dover MD Follow up: With: Address: When: [address] [address] Business () 09/30/2022 10:30 AM Comments: Keep scheduled appointment Patient Education Information: CV - EVLT Discharge Instructions (Custom) [facility] Inpatient Patient Summaryon 09-02-2022 Inpatient Patient Summary [address] [id number] Patient Discharge Instructions PERSON INFORMATION Name: JESSENIA [...] results: None Follow up: With: Address: When: [address] [address] Business () 09/30/2022 10:30 AM Comments: Keep scheduled appointment In the event that this physician does not participate in your insurance network, please consult with your insurance company to find a nearby participating provider. Comment: I MECCAJESSENIA, have received the attached patient education [...] concerns, call to speak with your doctor. [facility]: [phone]. Medication Leaflets: You may receive a survey from [employer] asking you to rate your care experience. Your feedback is important and will help us understand what we do well and how we can improve the quality of care we provide to you, your loved ones and our community. It?s an honor to serve you. Thank you for choosing [facility] Operative Reporton Operative Report SURGERY DATE: [...] very well. No complications. Rita Dover M.D. ls Dictated: 09/02/2022 [id number] Transcribed: 09/02/2022 [facility] Comment on above: Result Comment: [...] concerns, call to speak with your doctor. [facility]: [phone]. [facility] Coding Summary.on 08-20-2022 Coding Summary. CD:[id number] Gh0bWw+PGhlYWQ+PE1FV CFrU16rlCOunX9RM4vWO U3FGATAMIAHJN0RJJ3zz HQ6XNzxB5HyejTs VycivBMyXX49GHa2DSI3 yJcsKYykdY6onIZjC4s2 HgQaZB01vZ68PGgyYJAe BmZ4CaKpvqibnUJf I9snMuZtoFSdAlv+PHRh YmxlIHdpZHRoPScxMDAl RsBswGehIL4jVz3qEWYv LWNvbGxhcHNlOiBj a3stKZHtKGjyHM3vuNge Q3EniLZ5HMFbt5a4Xh87 dHI+TFKqLNP4uCguHEdg q664EoAtx2xiETP7 kSPeHGndDBN2J20yd9E2 WPNyOGAfFYJ6gLE8sL1j wEnurlbcR8WvrZDqVjW1 ENS1wCYztQ9eeIrd wfdjxG9uNff+Y39UBE1R YAOJRE7AGqo6B7LkUcig dHI+OB05LJFgDG02yMDc vMEfa5fsnDe4EvEc ETVtSZL3sDqdXUdjx0Fr IJXdH38hrECam5I8AOCw lOxmjFHfOpYdxRV1sB9w QBgqnxjhp6crjhpw Rjzuv7ubla55vM48A52g VVvkNCSfWBB6NMLsTJOj nNwgwh7jvL0yHl9+IDxj m2qmt1fejVw9ZzPo JCRnbkYefCpjWIC6a9Yk Mr29I6UjkOvnc5YkIml7 oc01jKGhe5B4mRZ5JVmo VOAesC9nAIzwPwC2 KEHyVdLraS85sVAdSFem Vk4ezEpmuTwmLQ5rAMNv zmimRQKwaB0kHDTbjDSq tDxyNB9qUQOgrydo r851GfLfLJF9BMMduMNs W5MdgG3jTxUyLWWiPYXy W2MnwBLxBPxaX370OOwc UaO3BORkbcNfR5Vy MDJyhJvsHjJ7y2U7Td8A q3NqjvunHAF4RHtkLQCs OwA3JzPpGpM9B1PyJpc5 ZPBvtFusKW0dD2Tj KAUxwwaahozxaIZ8CYEl HSJuoI83yVZrUMvyUu1b a0S3k098DBVeSWVhpR06 Pk1tnHomYLCstJWA mU4fvkjnw5erqmzrGcVu EBPpZVf1SXt4WJIpfRef GfXqFFY1FzZ9HUJ7zQFz kV4buSrkqplgiE8j Oyc+J23kkQ2qYHZ0JUB2 jdtvSIPtilDiEO76NZ57 Q9GpOlfhlBEwmTO+PGRp xmUnlNtlOC6yVhPc i5usd8QrYThoJ6HsNZIk MHkbIqt9KUNxFMX2sJG6 mO9hHLEoINwvg1K6yLG3 O6VllyOslr7ko6rv WSCkTSdcT38qeYHme5B4 QETaqQJ2ZLCscEjaVpJr yS87Waa+XPGdvAboj2Rf Erqcz4zzg2ypiQr7 IjMwJSIgdmFsaWduPSJ0 q7KtKs54D40lLPunGHYh GWCpIONhHSTbuZfusn3g pW2iHz0+PGNvbCB3 lMJ5eF8aXBZvQeQ5EJdg C481VyHapKWpOliak5fr w9chxQq8HxShGYSzsiIu jOppOMT2h4TwBk95 U70sGJjuGOOrFBUcSZWw VHCinUdyyu7leB6tJw9+ VH1jn2sygw35oT75pJQ+ XVGmEPR6tSwnVJcu KACepK2jQFfxZaQ7BMGq XsGmdP82wDJuCFedQj3m iIjjmEfiOT7uJZUojueu a312SdWjm4kcGUFs zCQzZCpbIBI7R69uq0H8 NZRfSCAsZND6yUF0mT7h bGlnbjogbGVmdDsgdmVy gSywOXdkEHreM565 IHRvcDsnPlBhdGllbnQg DvWsRKa8J5AkXcf2CMHj lJufSA5hoJHfFSqqZy2f rXzxuWqkTA1pMVDg cvric335HrAfe6ygMQBz aKQiXKpuCIE0J21vh7R9 CDMxSMIrTML0uRF2kE0e bGlnbjogbGVmdDsg ntPvvUhrLFskQJksR443 IHRvcDsnPkJpcnRoIERh nRJ1GH06WW16gMEfm9V7 eXU7P5LnWUCbhjhd kbddpRZ1LAJlJKBndP51 Sn2siWozLg2jFBPgWXO0 WCOstPMnD3XsnC0oTrGk ZTNxPPPnN9GdvKZj NZxxR821VKaiGwF8SJOo suKqN2TzUULfqMtqBnO8 z7Q3Xv1QX5T9RT22EE77 mNTfk3H8gQR8B9Ma ZVXbtbzzehrxfSX5XBHs FKOyxK70Zy0fxGviVy0k OMLbHGR0OGHvrHCoZ3Cl iO1dTvNdYKRfUTDt O8AnuENsRItbX332IXyp BnK9ZGBmuhBzX6SbSUTi kUojRrZ5x1U8Zr7DGFj4 CL93MU99zKFgm7R6 nEV4J9PuFCXyhxtlfmrp bIN5WMAbFRLxsE78Zm4g wWztNj2pTQIfVBJ4TFWy dJDvE7EaiA6zMaCw TGQdJDHcY6AhaMZpSFjd V173WVdzFmL1TPEdejUg Z0EgSMVisAwdBsD3e1A2 Ob6AZPOxPR16YXW9 cPM7RX53EI01L2XyRjuu dGFibGU+PHRhYmxlIHdp ZHRoPScxMDAlJyBzdHls FT3lJl5hMMAoSCWo tGkcmKFfLrXsf4rrDPAr WTppSI2ncVmqW2EzfSG1 AIBnv4l5Eq42F77zA9Ss dXA+LRUytLJ6sHG7 yR6lPhDiIiV5EXbsQ271 MpShhIWmKueut0rwl4te eDi6AoH1SKOfohLpeStc ELQ7r4SpUe80K10z IHdpZHRoPSIxNSUiIHZh wNpyyz3epE1cLq7+PGNv uGZ7oIB6pH2aIcEgZyM4 XFxeX574QgVewBWn Uvhen3zsi2gsoXu3NiFt GAPzrfPzvGnmLYV4t2Cf Ua40E0ElyCtqm3ChZmp8 eu06qROmo7Y7zLV6 Z0MyNKGplezruBHfgXcu CW9jWSWnryucFNJioV3e OWPkN8e8OzUwJhT9ERhl E4FqzvU4OEXbzQUg YTjjTQF5W97cb5A5JLIw XKOiGFS9yIU4vI3gzKwq bjogbGVmdDsgdmVydGlj FPbxRIygM395BESx aZzvXHBnqS7mCMVffCNx yZzzSL4kBTNmthgePgeP SVVSEcqmB8GJPOnZTlsI XN93S5EuTeo3OYFc hYgvFB1ocMEqPGqpSj8y tTlzmCsvWM5xBYZyevhu HOVwcX6hEGAjfUYqzQgt SO7yXSFabuwyx510 AbCgQMZ0IYToeUWrM2Dj nP3sXpXdEBDzANWzS1In eMMkJBbqC241MRuwOeV1 QNVkbdQlG0CzNOLu eOvgKeU5x6Y7Ee4bMo2i UT4bVUomLF04ZD39lDEe e4D8nNJ3X2EbTLHqemee nhfvsLO4XULfYOLb fX78jBMzZGcuDv7eo8F9 j310RCKxDPDieM86Xg1e bIoxBKBpoQPTwM8zvrpa d5rwbascZxArAVNv CDj8IQa8GNQxnBdeNpYp OXY6QgI2XAP7pRDuyF5l kJlbsbsnsK1nXle+NTAg CQDgotV9T1QuXqg4 IABnhFupEE9vcZKeFXco Hj0icFmblLxzKS4tBDQl ggmiRQIevE0zABUlnZNv jNfpEF6oZZHxvgkf t956YlSfRCR6ORRwtOKy W8QjjT3nWsMyPSSwLCRc I5ZegTWuFXueK192LGlw UqW9JYDuucRmJ6Zo DKWafTxrVsG5c6K8Nl9C QO1vhSN8S9OcPwz4IAKq cAzdHO1dbWIoPIegWf4j iNtxaZsbDG6oBCNl aejrTTYnjE5zEAFskCGg rOjzUV5sINGfittru957 JiKiNQB7WDZezFRxN4Dr uR6dQwJlIYBbUKVf G0TzsAKqPZmgC538JAmn XdE2FKKwnxScN1HnEQIr uNfhSsO0k1C9Af4RvKKe GLEeNU66TS31NJ52 W8GlDvyuhNGumKM+PHRh YmxlIHdpZHRoPScxMDAl XwVwrWooUM9nIo2zQBJh LWNvbGxhcHNlOiBj s0xiAFVlZRpwBE4unMpv E2WvzKY7NVFkz1x2It84 E53xT4UcbGI+PGNvbCB3 jBK8qZ9zDaDfYoN3 NXkaC360VpWkeFNcLwoh x3heo2tlzHh7PzBfHGGs jtCsgVtjAMZ6y7NiJg29 E87qUPuqQTOdPLFs LQYmQZHmnEovym6qbL0j Ii8+MWEblYW6dKL3pD1y VdTrWzE4HOmoD868LtSo zSRmEdlpX53vM7Ea dXA+HFNsJfa1YWPnbDcw RM5isQBaLTmtDh5zYCK7 OeNrJhNuTCdyI9RoHLKi luczhmvwnMU9KCYp TPMbkJ55Gr2oxDlhWy4o CBEnTUR8XRUliUJqK8Qm fV8oAsFmSPPzRMEaP8Tc mRGtWFqwE364VOqd WwY2OBTxmhEqT8QgVSNk cSpiMrW5y2W2Hw9VfJqw wXSgPN1uIqWhKNx6D9Du Lim8FNSmmWyrWK3f uCJbKMltBp4jlBycdDex KU3sWPVcisath829MwJp s3ayNPSbyCPrDHovCCD2 U44gc2I8OGIvHFHr RHZ9bDF6fC8lxEcmefme bGVmdDsgdmVydGljYWwt PTqjA889CZKrzLpbNiGY Muz4U6AbWqz0AQRz mOndTP5kdVTlBFefRe2t iQnuwAtwMZ8lJIXezwcd f626LfZrm8xmLVSchQNy WMugZUE4H26xo7E6 THVlLOGqRDD2tNB5fI9r bGlnbjogbGVmdDsgdmVy lBrsZSmrISykJ033POYe xBxcLu2ZMtk0A5Re Lko5JMUarQsaLY3uhMGy GZkeWs2rbWgrpSibJP3w KCHvznatu673TyCph5mx IDEwcHQgVGltZXM7 F09eo0D9SOTkZVPqUSF1 mAS1jC8ypBqaebjboHEw dDsgdmVydGljYWwtYWxp R255SGPpsEjuKmKz eWVyOjwvdGQ+VL16lg09 O8BnQsmhMke9FOHuINW4 kNH3oW2gALQwORwjw7F2 cHI0E9WikaMsnv4c b2xs (more content not included)... Normal [facility] Pre-Certification Formon Pre-Certification Form [id number] #1.00CD:127 Normal [facility] Consent for Treatmenton Consent for Treatment [id number] #1.00CD:127 Normal [facility] Heart and Vascular Office/Cl inic Noteon [...] influenza virus vaccine, inactivated 03/2019 Recorded Normal [facility] Comment on above: Result Comment: Elec tronically Signed By: Stanislaw CROCKER, Rita Long\.br\Date and Time Signed: 08/08/22 15:58 EST Physician Orderon 08-08-2022 Physician Order [id number] #1.00CD:127 Normal [facility] CNOVon 02-22-2022 CNOV Office Visit (LOORRM) MECAC,JESSENIA Toavr ([id number]) 1970 F Date Time Provider Department 02/22/22 [...] Recommend conservative treatment with activity modification, ice, jrwh-oyb-byqzgyc NSAID. If this becomes more significant she [...] (osteoarthritis) of (more content not included)... Normal [facility] XR KNEE 3V AP/LAT/MERCHANT L Ton 02-22-2022 XR KNEE 3V AP/LAT/MERCHANT LT * * *Final Report* * * DATE OF EXAM: Feb 22 2022 2:28PM BRIAN [id number] - XR KNEE 3V AP/LAT/MERCHANT LT [...] significant abnormality. ----- IMPRESSION: No acute findings. Senior Planning Manager: PSCB Transcribe Date/Time: Feb 22 2022 2:43P Dictated by : CANDY FORMAN MD This examination was interpreted and the report reviewed and electronically signed by: CANDY FORMAN MD on Feb 22 2022 2:47PM EST [id number] Normal [facility] XR KNEE POST OP 3V AP/LAT/ME RCHANT LEFTon 02-22-2022 [facility] HEMATOLOGYOrdered By: Eloina Tinoco on 11-14-2021 Erythrocyte [...] Anion gap [Moles/Vol] 12 mmol/L Normal 9-18 [facility] Comment on above: Performed By: #### C BC, BMP ####[address] Calcium [Mass/Vol] 8.5 mg/dL Normal 8.5-10.2 [facility] Comment on above: Performed By: #### C BC, BMP ####[place] [phone] Chloride [Moles/Vol] 104 mmol/L Normal 97-105 [facility] Comment on above: Performed By: #### C BC, BMP ####[place] [phone] CO2 [Moles/Vol] 23 mmol/L Normal 22-30 [facility] Comment on above: Performed By: #### C ANMOL, BMP ####[place] [phone] Creatinine [Mass/Vol] 0.79 mg/dL Normal 0.58-0.96 [facility] Comment on above: Performed By: #### C ANMOL, BMP ####[place] [phone] eGFR- Amer. >60 Normal >60 [facility] Comment on above: Performed By: #### C ANMOL, BMP ####[place] [phone] eGFR-All Other Races >60 Normal >60 [facility] Comment on above: Result Comment: eGFR (Estimated [...] GFR. Performed By: #### C BC, BMP ####[address] Glucose [Mass/Vol] 127 mg/dL High 74-99 [facility] Comment on above: Performed By: #### C BC, BMP ####[facility] [phone] Potassium [Moles/Vol] 4.6 mmol/L Normal 3.7-5.1 [facility] Comment on above: Performed By: #### C BC, BMP ####[facility] [place] [phone] Sodium [Moles/Vol] 139 mmol/L Normal 136-144 [facility] Comment on above: Performed By: #### C BC, BMP ####[facility] [place] [phone] Urea nitrogen [Mass/Vol] 12 mg/dL Normal 7-21 [facility] Comment on above: Performed By: #### C BC, BMP ####[facility] [phone] CASE MANAGEMon 12-21-2020 CASE MANAGEM HNO ID: [id number] Author: Kirstie Mcfarlane RN Service: Case Management [...] 21, 2020 TIME: 1:01 PM PAGER/CONTACT #: [phone] [facility] CASE MGT INALICE [place] 2020 CASE MGT INIT POOJA HNO ID: [id number] Author: Kirstie Mcfarlane RN Service: Case Management [...] symptoms;To improve my functional status Health Insurance: [employer] Health Issues Impacting Discharge Plan: Chronic Chronic: htn, asmtha Last Discharge Date: 11/19/16 Is this Within the Past 30 days? Last discharge within 30 days: No Advance Directive: Current Advance Directive: Health Care Power of Facility Administrator In Chart: Yes Up To Date and [...] Walker Has the Patient Been in a Residential Facility in the Past 30 days?: No SOCIAL: Living Arrangements: Home Lives With: Spouse Financial Resources: Employed Primary Contact: Extended Emergency Contact Information Primary Emergency Contact: Orlando Wing Address: [address] [place] [address] Mobile Relation: Spouse Supportive Patient Contact:: Yes [...] recommended patient is agreeable to having [employer] [facility] to provide this service as they did [...] Completely I feel financially burdened by my oki-ph-aauatc expenses for my prescription medication:: 0 - Disagree Completely Risk Score: 0 Patient is categorized as: Low risk < 2 Are you interested in bedside delivery of your medications? Yes Is Patient Psychosocially Complex?: No ASSESSMENT AND PLAN: Medical Needs: Medical Needs: None Psychosocial Needs: Psychosocial Needs: None FREEDOM OF CHOICE EXPLAINED: [place] of Choice Given: Yes Level of Care Discussed: Home Care Financial Disclosure Provided: No Provider list within the patient's requested geographic area shared with the patient/family: No Quality and resource use metrics shared with the patient that are relevant to the patient's goals of care and treatment preferences:: No Reason: if home therapy is recommended [facility] did [...] 21, 2020 TIME: 9:30 AM PAGER/CONTACT #: [phone] Normal [facility] CBCon 12-21-2020 Absolute nRBC <0.01 Normal <0.01 [facility] Comment on above: Performed By: #### C [place] ####[facility] [phone] Erythrocyte distribution width (RBC) [Ratio] 15.4 % High 11.5-15.0 [facility] Comment on above: Performed By: #### C ANMOL BMP ####[facility] [phone] Hematocrit (Bld) [Volume fraction] 29.8 % Low 36.0-46.0 [facility] Comment on above: Performed By: #### C ANMOL, BMP ####[place] [phone] Hemoglobin (Bld) [Mass/Vol] 9.3 g/dL Low 11.5-15.5 [facility] Comment on above: Performed By: #### C ANMOL, BMP ####[address] MCH 26.9 pG Normal 26.0-34.0 [facility] Comment on above: Performed By: #### C ANMOL, BMP ####[place] [phone] MCHC (RBC) [Mass/Vol] 31.2 g/dL Normal 30.5-36.0 [facility] Comment on above: Performed By: #### C ANMOL, BMP ####[address] MCV (RBC) [Entitic vol] 86.1 fL Normal 80.0-100.0 [facility] Comment on above: Performed By: #### C ANMOL, BMP ####[address] Platelet mean volume (Bld) [Entitic vol] 10.6 fL Normal 9.0-12.7 [facility] Comment on above: Performed By: #### C ANMOL, BMP ####[address] Platelets (Bld) [#/Vol] 110 10*3/uL Low 150-400 [facility] Comment on above: Performed By: #### C ANMOL, BMP ####[address] RBC (Bld) [#/Vol] 3.46 10*6/uL Low 3.90-5.20 [facility] Comment on above: Performed By: #### C ANMOL, BMP ####[place] [phone] WBC (Bld) [#/Vol] 6.64 10*3/uL Normal 3.70-11.00 [facility] Comment on above: Performed By: #### C [place] ####[facility] [phone] CNDSon 12-21-2020 CNDS HNO ID: [id number] Author: Stanley Bunch PA-C Service: Orthopaedic Surgery Author Type: Physician Statistical Assistant Type: Discharge Summary Filed: 12/21/2020 9:31 AM Note Text: Attestation signed by Rex Meredith Jr., MD at 12/21/2020 10:11 AM agree DISCHARGE SUMMARY Patient Name: Jessenia Wing : 1970 ADMISSION DATE: 12/20/2020 DISCHARGE DATE: 12/21/20 Attending Physician: Rex Meredith Jr., MD Primary Diagnosis: Failure of total knee replacement, 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[facility]) [T84.018A, Z96.659] Operations During Hospitalization: Procedure(s) (LRB): REVISION JOINT [...] Home with Home Health Care Discharge Medications: [place] Jessenia Tovar Home Medication Instructions JOE:[id number] Printed on:12/21/20 4738 Medication Information acetaminophen (TYLENOL EXTRA STRENGTH) 500 [...] Dept Phone 01/11/2021 11:30 AM DEISY GONZALEZ [phone] SIGNATURE: Stanley Bunch PA-C PATIENT NAME: Jessenia Tovar [place] DATE: 12/21/2020 TIME: 9:31 AM PAGER/CONTACT #: [phone] [facility] CONSULT PROGon 12-21-2020 CONSULT PROG HNO ID: [id number] Author: Toan Can MD Service: General Internal Medicine Author Type: Physician Type: Consult Progress Note Filed: 12/21/2020 11:54 AM Note Text: CONSULT NOTE - INTERNAL MEDICINE PATIENT NAME: Jessenia Srivastavar SERVICE DATE: 12/21/2020 SERVICE TIME: 11:30 AM [...] (!) 50 16 98 % ? ? 12/20/20 2033 121/82 36.5 ?C (97.7 ?F) Rectal (!) [...] may be extrapolated by contextual derivation [facility] THERAPY NTon 12-21-2020 THERAPY NT HNO ID: [id number] Author: Paige Stockton, OTR/L Service: Occupational Therapy Author Type: Occupational Therapist Type: Therapy (PT/OT/Speech/Resp) Filed: 12/21/2020 12:41 PM Note Text: Occupational Therapy Evaluation SERVICE DATE: 12/21/2020 SERVICE TIME: 1151 to 1206 ROOM: [place] [address] Recommended Discharge Disposition: Home Anticipated Discharge Needs: [...] Occupational Therapy Problem List: Safety Deficits;Impaired Self Detention Environment Patient Lives With: Family Assistance Available: [...] living (ADL) Interventions Provided: Evaluation $ Evaluation-Low (94923) Billed Units: 1 unit Training AND education [...] December 21, 2020 TIME: 12:40 PM [facility] THERAPY NT HNO ID: [id number] Author: Kirsten Uriostegui, VERÓNICA Service: Physical Therapy Author Type: Physical Therapist Type: Therapy (PT/OT/Speech/Resp) Filed: 12/21/2020 12:06 PM Note Text: Physical Therapy Evaluation SERVICE DATE: 12/21/2020 SERVICE TIME: 1059 to 1140 ROOM: [id number] Recommended Discharge Disposition: Outpatient Physical Therapy. Pt [...] excessive (initiating step thru with increased distance) [facility] Walk 250 feet or more Learning/Educational [...] walking-musculoskele carol Interventions Provided: Evaluation;Therapeut ic Exercise (54337);Gait Training (63118) $ Evaluation-Low (06246) Billed Units: 1 unit Therapeutic Exercise (11072) Treatment Minutes: 10 $ Therapeutic Exercise (76654) Billed Units: 1 unit Gai (more content not included)... [facility] ANES POSTPROC EVALon 021 ANES POSTPROC EVAL HNO ID: [id number] Author: Zeke Prajapati II, DO Service: Anesthesiology Author Type: Anesthesiologist Type: Anesthesia Postprocedure Evaluation Filed: 12/20/2020 4:27 PM Note Text: POST ANESTHESIA EVALUATION NOTE : 1970 Procedure Summary Date: 12/20/20 Room / Location: [place] [address] / OR Anesthesia Start: 1223 Anesthesia Stop: 1607 Procedure: REVISION JOINT TOTAL KNEE FEMORAL AND ENTIRE TIBIAL COMPONENT (Left Knee) Diagnosis: Failure of total knee replacement, 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[facility]) (Failure of total knee replacement, 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[facility]) [T84.018A, Z96.659]) Surgeons: Rex Meredith Jr., MD [...] December 20, 2020 TIME: 4:27 PM CSN: [id number] [facility] ANES PRE-OPon 12-20-2020 ANES PRE-OP HNO ID: [id number] Author: Adan Viera MD Service: Anesthesiology Author [...] December 20, 2020 TIME: 11:29 AM CSN: [id number] [facility] Anaerobe Cultureon Anaerobe Culture Culture Result - Negative for anaerobes. No Cutibacterium (Propionibacterium) acnes isolated. [facility] Comment on above: Performed By: #### A NACUL ####[facility] [place], [place] [phone] BRIEF OP NOTon 12-20-2020 BRIEF OP NOT HNO ID: [id number] Author: Rex Meredith Jr., MD Service: Orthopaedic Surgery Author Type: Physician Type: Brief Op Note Filed: 12/20/2020 3:24 PM Note Text: OPERATIVE/PROCEDURE REPORT LOG ID: [id number] SURGERY/PROCEDURE DATE: 12/20/2020 INCISION/PROCEDURE START TIME: 1:19 PM INCISION CLOSE/PROCEDURE END TIME: 1523 SURGEON(S)/PROCEDURA LIST(S) AND MAGNESIUM MILL OPERATOR(S): Surgeon(s) and Role: * Rex Meredith Jr., MD - Primary Physician Statistical Assistant: Wilver Newberry PA-C; Deisy Gonzalez PA-C SURGERY/PROCEDURE(S) : Left knee revision ANESTHESIA: Spinal SURGERY/PROCEDURE DETAILS: Left knee revision PRE-OP/PRE-PROCEDURE DIAGNOSIS: Aseptic loosening left knee revision POST-OP/POST-PROCEDU RE DIAGNOSIS: Same as Preop ESTIMATED BLOOD LOSS: 100 mls SPECIMENS: open cultures IMPLANTABLE DEVICES: Chestnut TS DRAINS: None COMPLICATIONS: None PARTICIPATION IN SURGERY/PROCEDURE: No qualified resident/fellow was available. I/primary surgeon/proceduralis t performed the entire procedure. SIGNATURE: Rex Meredith Jr, MD PATIENT NAME: Jessenia Wing DATE: December 20, 2020 TIME: 3:23 PM Normal [facility] Basic Metabolic Panlon 12-20 Anion gap [Moles/Vol] 10 mmol/L Normal 9-18 [facility] Comment on above: Performed By: #### C BC, BMP ####[place] [phone] Calcium [Mass/Vol] 8.5 mg/dL Normal 8.5-10.2 [facility] Comment on above: Performed By: #### C BC, BMP ####[place] [phone] Chloride [Moles/Vol] 111 mmol/L High 97-105 [facility] Comment on above: Performed By: #### C BC, BMP ####[place] [phone] CO2 [Moles/Vol] 23 mmol/L Normal 22-30 [facility] Comment on above: Performed By: #### C BC, BMP ####[place] [phone] Creatinine [Mass/Vol] 0.73 mg/dL Normal 0.58-0.96 [facility] Comment on above: Performed By: #### C BC, BMP ####[place] [phone] eGFR- Amer. >60 Normal >60 [facility] Comment on above: Performed By: #### C BC, BMP ####[address] eGFR-All Other Races >60 Normal >60 [facility] Comment on above: Result Comment: eGFR (Estimated [...] GFR. Performed By: #### C ANMOL, BMP ####[address] Glucose [Mass/Vol] 140 mg/dL High 74-99 [facility] Comment on above: Performed By: #### C ANMOL, BMP ####[address] Potassium [Moles/Vol] 5.0 mmol/L Normal 3.7-5.1 [facility] Comment on above: Performed By: #### Js COREA, BMP ####[address] Sodium [Moles/Vol] 144 mmol/L Normal 136-144 [facility] Comment on above: Performed By: #### C BC, BMP ####[address] Urea nitrogen [Mass/Vol] 9 mg/dL Normal 7-21 [facility] Comment on above: Performed By: #### C BC, BMP ####[place] [phone] CBCon 12-20-2020 Absolute nRBC <0.01 Normal <0.01 [facility] Comment on above: Performed By: #### C BC, BMP ####[address] Erythrocyte distribution width (RBC) [Ratio] 15.8 % High 11.5-15.0 [facility] Comment on above: Performed By: #### C BC, BMP ####[place] [phone] Hematocrit (Bld) [Volume fraction] 33.1 % Low 36.0-46.0 [facility] Comment on above: Performed By: #### C ANMLO, BMP ####[place] [phone] Hemoglobin (Bld) [Mass/Vol] 10.4 g/dL Low 11.5-15.5 [facility] Comment on above: Performed By: #### C ANMOL, BMP ####[place] [phone] MCH 27.2 pG Normal 26.0-34.0 [facility] Comment on above: Performed By: #### C ANMOL, BMP ####[place] [phone] MCHC (RBC) [Mass/Vol] 31.4 g/dL Normal 30.5-36.0 [facility] Comment on above: Performed By: #### C ANMOL, BMP ####[address] MCV (RBC) [Entitic vol] 86.4 fL Normal 80.0-100.0 [facility] Comment on above: Performed By: #### C ANMOL, BMP ####[address] Platelet mean volume (Bld) [Entitic vol] 11.0 fL Normal 9.0-12.7 [facility] Comment on above: Performed By: #### C ANMOL, BMP ####[address] Platelets (Bld) [#/Vol] 120 10*3/uL Low 150-400 [facility] Comment on above: Performed By: #### C ANMOL, BMP ####[place] [phone] RBC (Bld) [#/Vol] 3.83 10*6/uL Low 3.90-5.20 [facility] Comment on above: Performed By: #### C ANMOL, BMP ####[facility] [phone] WBC (Bld) [#/Vol] 6.04 10*3/uL Normal 3.70-11.00 [facility] Comment on above: Performed By: #### C ANMOL, BMP ####[facility] [phone] CONSULTon 12-20-2020 CONSULT HNO ID: [id number] Author: Toan Can MD Service: General Internal [...] 1630 102/ (more content not included)... [facility] NURSING PROGon 12-20-2020 NURSING PROG HNO ID: [id number] Author: Cherie Rose RN Service: Nursing Author Type: Registered Nurse Type: Nursing Progress Note Filed: 12/20/2020 5:21 PM Note Text: Nursing Progress Note Patient Name: Jessenia Tovar [place] Patient [facility]: [facility]- Transfer Note: Patient transferred into room/unit 502-2 in stable condition. Actions taken: Patient and family oriented to 5D unit policies and procedures. Educated on falls risks, falls precautions, and use of call almeida prior to getting OOB. Patient resting in bed. Call light within reach. All needs met at this time. This note was completed by: Cherie Rose [facility] OPERATIVE NOon 12-20-2020 OPERATIVE NO HNO ID: [id number] Author: Rex Meredith Jr., MD Service: Orthopaedic Surgery Author Type: Physician Type: Operative Report Filed: 12/21/2020 8:04 AM Note Text: OPERATIVE/PROCEDURE REPORT LOG ID: [id number] SURGERY/PROCEDURE DATE: 12/20/2020 INCISION/PROCEDURE START TIME: 1:19 PM INCISION CLOSE/PROCEDURE END TIME: 3:54 PM SURGEON(S)/PROCEDURA LIST(S) AND MAGNESIUM MILL OPERATOR(S): Surgeon(s) and Role: * Rex Meredith Jr., MD - Primary Physician Statistical Assistant: Wilver Newberry PA-C; Deisy [place] PA-C - Aline was first breaker feeder; his assistance consisted of assistance with positioning, retraction and closing the wound SURGERY/PROCEDURE(S) : Left total knee revision ANESTHESIA: Spinal SURGERY/PROCEDURE DETAILS: Left total knee revision PRE-OP/PRE-PROCEDURE DIAGNOSIS: 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 The femur consisted of a size [...] the tibial component was removed with a [place]ston. It was grossly loose. The cement mantle [...] with n (more content not included)... Normal [facility] SURGICAL PATHOLOGYon 021 SURGICAL PATHOLOGY Specimen originated from [facility] Specimen #: [id number] Submitting Physician: REX MEREDITH JR, MD FINAL DIAGNOSIS Hardware, left knee, removal - Unremarkable hardware (gross examination only). APH/KVB/lbk 12/21/2020 Gaston Florez M.D. (Electronic Signature) SPECIMEN SUBMITTED A: REMOVED HARDWARE FROM LEFT KNEE CLINICAL DATA FAILURE OF TOTAL KNEE REPLACEMENT, INITIAL ENCOUNTER ([facility]); LEFT TOTAL KNEE REVISION GROSS DESCRIPTION A. [...] on the polyethylene articular insert saying LEFT [id number] . No tissue is present. No sections are submitted. The specimen is for gross examination only. The specimen is reviewed by Dr. Florez. [place] [address] KVB/lbk 12/21/2020 Date of Report: 12/22/2020 Date of Procedure: 12/20/2020 Date of Receipt: 12/20/2020 Submitted by: REX MEREDITH JR, MD Location: [facility] Diagnostic interpretation performed at [facility], [address] [address] [facility], [place] [address]. CLIA Number: [id number] [facility] Wound Culture/Stainon 2020 Wound Culture/Stain Sp. Request/Comment: - Specimen received in anaerobic transport medium. Smear Result - No organisms seen No Polymorphonuclear Leukocytes Culture Result - No growth 2 days [facility] Comment on above: Performed By: #### W CUL ####[facility] [id number] [address] [place], [place] [phone] Type and SCR (30D)on 021 ABO/RH(D) Positive Normal [facility] Comment on above: Performed By: #### T SCR30 ####[facility] [phone] Large Joint Arthro/Inj: R kn ee joint [facility] Vital Signs Date Time Vital Sign Value Performing Clinician Sami bryan 06-27-2023 10:58-0500 Diastolic blood pressure 96 mm[Hg] DIANA CEJA [facility] 06-27-2023 10:58-0500 Mean blood pressure 107 mm[Hg] DIANA CEJA [facility] 06-27-2023 10:58-0500 Systolic blood pressure 130 mm[Hg] DIANA CEJA [facility] 06-27-2023 10:47-0500 Diastolic blood pressure 92 mm[Hg] DIANA CEJA [facility] 06-27-2023 10:47-0500 Mean blood pressure 104 mm[Hg] DIANA CEJA [facility] 06-27-2023 10:47-0500 Systolic blood pressure 128 mm[Hg] DIANA CEJA [facility] 06-27-2023 10:29-0500 Blood Pressure Location DIANA CEJA [facility] 06-27-2023 10:29-0500 Body temperature 97.88 [degF] DIANA CEJA [facility] 06-27-2023 10:29-0500 Diastolic blood pressure 64 mm[Hg] DIANA CEJA [facility] 06-27-2023 10:29-0500 Heart rate 77 /min DIANA CEJA [facility] 06-27-2023 10:29-0500 Respiratory rate 24 /min DIANA CEJA [facility] 06-27-2023 10:29-0500 SaO2% (BldA) [Mass fraction] 98 % DIANA CEJA [facility] 06-27-2023 10:29-0500 Systolic blood pressure 116 mm[Hg] DIANA CEJA [facility] 06-26-2023 20:47-0500 Diastolic blood pressure 104 mm[Hg] Everardo Perera [facility] 06-26-2023 20:47-0500 Heart rate 98 /min Everardo Hatche [facility] 06-26-2023 20:47-0500 Mean blood pressure 125 mm[Hg] Everardo Dilma [facility] 06-26-2023 20:47-0500 Respiratory rate 18 /min Everardo Dilma [facility] 06-26-2023 20:47-0500 SaO2% (BldA) [Mass fraction] 97 % Everardo Dilma [facility] 06-26-2023 20:47-0500 Systolic blood pressure 166 mm[Hg] Everardo Dilma [facility] 06-26-2023 20:25-0500 Diastolic blood pressure 119 mm[Hg] Everardo Dilma [facility] 06-26-2023 20:25-0500 Heart rate 92 /min Everardo Dilma [facility] 06-26-2023 20:25-0500 Hourly Rounding Everardo Dilma [facility] 06-26-2023 20:25-0500 Mean blood pressure 139 mm[Hg] Everardo Dilma [facility] 06-26-2023 20:25-0500 Respiratory rate 21 /min Everardo Dilma [facility] 06-26-2023 20:25-0500 SaO2% (BldA) [Mass fraction] 97 % Everardo Dilma [facility] 06-26-2023 20:25-0500 Systolic blood pressure 180 mm[Hg] Everardo Dilma [facility] 06-26-2023 20:17-0500 Diastolic blood pressure 119 mm[Hg] Everardo Dilma [facility] 06-26-2023 20:17-0500 Systolic blood pressure 180 mm[Hg] Everardo Dilma [facility] 06-26-2023 19:25-0500 Heart rate 86 /min Everardo Dilma [facility] 06-26-2023 19:25-0500 Hourly Rounding Everardo Dilma [facility] 06-26-2023 19:25-0500 Mean blood pressure 151 mm[Hg] Everardo Dilma [facility] 06-26-2023 19:25-0500 Promise to Return Everardo Dilma [facility] 06-26-2023 19:25-0500 Respiratory rate 17 /min Everardo Dilma [facility] 06-26-2023 19:25-0500 SaO2% (BldA) [Mass fraction] 98 % Everardo Perera [facility] 06-26-2023 18:37-0500 Body temperature 98.24 [degF] Everardo Perera [facility] 06-26-2023 18:37-0500 Heart rate 99 /min Everardo Perera [facility] 06-26-2023 18:37-0500 Respiratory rate 16 /min Everardo Perera [facility] 03-05-2023 15:25-0400 Diastolic blood pressure 96 mm[Hg] Morena Soham [facility] 03-05-2023 15:25-0400 Mean blood pressure 111 mm[Hg] Morena Soham [facility] 03-05-2023 15:25-0400 Systolic blood pressure 140 mm[Hg] Morena Soham [facility] 03-05-2023 15:09-0400 Diastolic blood pressure 116 mm[Hg] Morena Soham [facility] 03-05-2023 15:09-0400 Mean blood pressure 127 mm[Hg] Morena Soham [facility] 03-05-2023 15:09-0400 Systolic blood pressure 149 mm[Hg] Morena Soham [facility] 03-05-2023 15:06-0400 Blood Pressure Location Morena Soham [facility] 03-05-2023 15:06-0400 Body temperature 97.52 [degF] Morena Soham [facility] 03-05-2023 15:06-0400 Diastolic blood pressure 103 mm[Hg] Morena Rousseau [facility] 03-05-2023 15:06-0400 Heart rate 73 /min Morena Hinesmetz [facility] 03-05-2023 15:06-0400 Systolic blood pressure 142 mm[Hg] Morena Hinesmetz [facility] 02-05-2023 13:54-0400 Blood Pressure Location Parker SALAM [facility] 02-05-2023 13:54-0400 Diastolic blood pressure 114 mm[Hg] Parker SALAM [facility] 02-05-2023 13:54-0400 Heart rate 64 /min Parker SALAM [facility] 02-05-2023 13:54-0400 Respiratory rate 21 /min Parker SALAM [facility] 02-05-2023 13:54-0400 SaO2% (BldA) [Mass fraction] 100 % Parker SALAM [facility] 02-05-2023 13:54-0400 Systolic blood pressure 155 mm[Hg] Parker SALAM [facility] 02-05-2023 13:44-0400 Blood Pressure Location Parker SALAM [facility] 02-05-2023 13:44-0400 Diastolic blood pressure 94 mm[Hg] Parker SALAM [facility] 02-05-2023 13:44-0400 Heart rate 62 /min Parker SALAM [facility] 02-05-2023 13:44-0400 Respiratory rate 19 /min Parker SALAM [facility] 02-05-2023 13:44-0400 SaO2% (BldA) [Mass fraction] 99 % Aprker SALAM [facility] 02-05-2023 13:44-0400 Systolic blood pressure 149 mm[Hg] Parker SALAM [facility] 02-05-2023 13:39-0400 Blood Pressure Location Parker SALAM [facility] 02-05-2023 13:39-0400 Diastolic blood pressure 94 mm[Hg] Parker SALAM [facility] 02-05-2023 13:39-0400 Heart rate 64 /min Parker SALAM [facility] 02-05-2023 13:39-0400 Respiratory rate 12 /min Parker SALAM [facility] 02-05-2023 13:39-0400 SaO2% (BldA) [Mass fraction] 99 % Parker SALAM [facility] 02-05-2023 13:39-0400 Systolic blood pressure 138 mm[Hg] Parker SALAM [facility] 02-05-2023 13:29-0400 Body temperature 97.16 [degF] Parker SALAM [facility] 02-05-2023 13:25-0400 Respiratory rate 18 /min Parker SALAM [facility] 02-05-2023 13:20-0400 Respiratory rate 18 /min Parker SALAM [facility] 02-05-2023 13:15-0400 Respiratory rate 16 /min Parker SALAM [facility] 02-05-2023 12:18-0400 Body temperature 97.88 [degF] Parker SALAM [facility] 12-25-2022 10:32-0400 Body height 167.6 cm Marko Torreuh PA-C Work Phone: [facility] 12-25-2022 10:32-0400 Body weight 106.05 kg Marko Bandsuh PA-C Work Phone: [facility] 12-25-2022 10:32-0400 Diastolic blood pressure 78 mm[Hg] Marko Bandsuh PA-C Work Phone: [facility] 12-25-2022 10:32-0400 Heart rate 60 /min Marko Bandsuh PA-C Work Phone: [facility] 12-25-2022 10:32-0400 Systolic blood pressure 112 mm[Hg] Marko Bandsuh PA-C Work Phone: [facility] 12-18-2022 09:27-0400 Blood Pressure Location Parker SALAM [facility] 12-18-2022 09:27-0400 Diastolic blood pressure 85 mm[Hg] Parker SALAM [facility] 12-18-2022 09:27-0400 Heart rate 66 /min Parker SALAM [facility] 12-18-2022 09:27-0400 Respiratory rate 16 /min Parker SALAM [facility] 12-18-2022 09:27-0400 SaO2% (BldA) [Mass fraction] 96 % Parker SALAM [facility] 12-18-2022 09:27-0400 Systolic blood pressure 121 mm[Hg] Parker SALAM [facility] 10-25-2022 14:31-0400 Blood Pressure Location ANA SIDELL [facility] 10-25-2022 14:31-0400 Body temperature 98.06 [degF] ANA SIDELL [facility] 10-25-2022 14:31-0400 Diastolic blood pressure 82 mm[Hg] ANA SIDELL [facility] 10-25-2022 14:31-0400 Heart rate 81 /min ANA SIDELL [facility] 10-25-2022 14:31-0400 SaO2% (BldA) [Mass fraction] 98 % ANA SIDELL [facility] 10-25-2022 14:31-0400 Systolic blood pressure 144 mm[Hg] ANA SIDELL [facility] 08-08-2022 15:51-0500 Diastolic blood pressure 97 mm[Hg] Mohamed Stanislaw [facility] 08-08-2022 15:51-0500 Mean blood pressure 111 mm[Hg] Mohamed Stanislaw [facility] 08-08-2022 15:51-0500 Systolic blood pressure 139 mm[Hg] Mohamed Stanislaw [facility] 08-08-2022 15:39-0500 Blood Pressure Location Mohamed Stanislaw [facility] 08-08-2022 15:39-0500 Diastolic blood pressure 94 mm[Hg] Mohamed Stanislaw [facility] 08-08-2022 15:39-0500 Heart rate 72 /min Mohamed Stanislaw [facility] 08-08-2022 15:39-0500 SaO2% (BldA) [Mass fraction] 98 % Rita Dover [facility] 08-08-2022 15:39-0500 Systolic blood pressure 137 mm[Hg] Rita Dover [facility] 05-16-2022 14:27-0500 Blood Pressure Location Rita Dover [facility] 05-16-2022 14:27-0500 Diastolic blood pressure 86 mm[Hg] Rita Dover [facility] 05-16-2022 14:27-0500 Heart rate 71 /min Rita Dover [facility] 05-16-2022 14:27-0500 SaO2% (BldA) [Mass fraction] 98 % Rita Dover [facility] 05-16-2022 14:27-0500 Systolic blood pressure 120 mm[Hg] Rita Dover [facility] 11-06-2021 13:52-0400 Body temperature 98.42 [degF] [facility] 11-06-2021 13:52-0400 Diastolic blood pressure 90 mm[Hg] [facility] 11-06-2021 13:52-0400 Heart rate 59 /min [facility] 11-06-2021 13:52-0400 SaO2% (BldA) [Mass fraction] 96 % [facility] 11-06-2021 13:52-0400 Systolic blood pressure 120 mm[Hg] [facility] Encounters Encounter Date Encounter Type Care Provider Facility Start: 07-18-2023 End: 07-18-2023 Patient encounter procedure DIANA CEJA [facility] Start: 06-27-2023 End: 06-28-2023 ambulatory ASH HANDLER-C DIANA CEJA Facility:[facility] Start: 06-27-2023 End: 06-27-2023 Patient encounter procedure DIANA CEJA [facility] [place] Start: 06-26-2023 End: 06-26-2023 Emergency department patient visit Everardo Perera Facility:[facility] Start: 06-26-2023 End: 06-26-2023 Emergency department patient visit Everardo Perera [facility] Start: 06-26-2023 End: 06-27-2023 ambulatory SELF REFERRAL Facility:[facility] Start: 06-26-2023 End: 06-26-2023 Patient encounter procedure Everardo Davis [facility] Start: 06-05-2023 End: 06-06-2023 ambulatory Morena Rousseau Facility:[facility] Start: 06-05-2023 End: 06-05-2023 Patient encounter procedure Morena Rousseau [facility] Start: 03-05-2023 End: 03-06-2023 ambulatory Morena Rousseau Facility:[facility] Start: 03-05-2023 End: 03-05-2023 Patient encounter procedure Morena Rousseau [facility] Start: 02-05-2023 End: 02-06-2023 ambulatory Keith CHUNG Facility:[facility] Start: 02-05-2023 End: 02-05-2023 Patient encounter procedure Parker VERONICA [facility] Start: 12-25-2022 End: 12-25-2022 ambulatory MARKO TORRE Facility:[facility] Start: 12-25-2022 End: 12-25-2022 Patient encounter procedure Marko Trore PA-C Work Phone: Orthopedics Comment on above: S/P revision of tota l knee, left (Primary Dx); Primary osteoarthritis of right knee Start: 12-18-2022 End: 12-19-2022 ambulatory Parker [facility] Facility:[facility] Start: 12-18-2022 End: 12-18-2022 Patient encounter procedure Keith CHUNG [facility] Start: 12-16-2022 End: 12-17-2022 ambulatory Sri PUGA Facility:[facility] Start: 12-16-2022 End: 12-17-2022 ambulatory Sri PUGA Facility:[facility] Start: 11-22-2022 End: 11-23-2022 ambulatory ANA W SAIRA Facility:[facility] Start: 11-03-2022 End: 11-04-2022 ambulatory Kimmy Scott Facility:[facility] Start: 10-28-2022 ambulatory Keith CHUNG Facility: [facility] Start: 10-25-2022 End: 10-26-2022 ambulatory ANA W NOYLL Facility:[facility] Start: 10-25-2022 End: 10-25-2022 Patient encounter procedure ANA CHÁVEZ [facility] Start: 09-02-2022 End: 09-02-2022 ambulatory Rita Dover Facility:[facility] Start: 09-02-2022 End: 09-02-2022 Admission to same day surgery center Rita Dover [facility] Start: 08-08-2022 End: 08-09-2022 ambulatory Rita Mercedes Stanislaw Facility:[facility] Start: 08-08-2022 End: 08-08-2022 Patient encounter procedure Rita Dover [facility] Start: 05-29-2022 End: 05-29-2022 Patient encounter procedure Jerel Banks [facility] Start: 05-20-2022 End: 05-20-2022 Patient encounter procedure Jerel Banks [facility] Start: 05-16-2022 End: 05-16-2022 Patient encounter procedure Rita Dover [facility] Start: 02-22-2022 End: 02-22-2022 Orders Only Augustus Pereira MD Work Phone: Orthopaedics Comment on above: S/P revision of tota l knee, left (Primary Dx) Start: 11-14-2021 End: 11-14-2021 Patient encounter procedure Levon Webber [facility] Start: 11-06-2021 End: 11-06-2021 Patient encounter procedure Levon Webber [facility] Start: 11-06-2021 End: 11-06-2021 Patient encounter procedure Levon Webber [facility] Procedures Date Procedure Procedure Detail [...] above: Performed By: #### [id number] ####Mele Maldonado [id number] [phone] Start: 10-05-2020 Injection of sclerosing agent Levon [...] (<130/80) [facility] Start: 12-22-2023 DIABETES SCREEN DIABETES SCREEN [facility] Start: 07-07-2022 DEPRESSION ASSESSMENT DEPRESSION ASS ESSMENT [facility] Start: 03-07-2022 Influenza vaccination INFLUENZA (#1) [facility] Start: 12-12-2021 COVID-19 VACCINE (4 - Booster for Pfizer series) COVID-19 VACCINE (4 - Booster for Pfizer series) [facility] Start: 12-12-2021 SHINGRIX VACCINE (1 of 2) SHINGRIX V ACCINE (1 of 2) [facility] Start: 09-10-2021 COVID-19 VACCINE (4 - Booster for Pfizer series) COVID-19 VACCINE (4 - Booster for Pfizer series) [facility] Start: 12-12-2016 COLOGUARD (FIT-DNA) COLOGUARD (FIT-D NA) [facility] Start: 12-12-2016 Colonoscopy COLONOSCOPY [facility] Start: 12-12-2016 COLORECTAL CANCER SCREENING COLORECTAL CANCER SCREENING [facility] Start: 12-12-[address] COLONOGRAPHY [facility] Start: 12-12-2016 FECAL OCCULT BLOOD FECAL OCCULT BLOO D [facility] Start: 12-12-2016 LIPID SCREEN LIPID SCREEN [facility] Start: 12-12-2016 SIGMOIDOSCOPY SIGMOIDOSCOPY [facility] Start: 2011 Mammography MAMMOGRAM [facility] Start: 12-12-2001 HPV TESTING HPV TESTING [facility] Start: 12-12-1992 PAP TESTING PAP TESTING [facility] Start: 12-12-1990 Urine microalbumin profile DTAP,TDAP ,TD (1 - Tdap) [facility] Start: 12-12-1989 ANNUAL PCP TEAM ELECTROPHONIC ENGINEER BARBARA DISEASE VISIT ANNUAL PCP TEAM CHRONIC DISEASE VISIT [facility] Start: 12-12-1989 BP CONTROLLED (<130/80) BP CONTROLLE D (<130/80) [facility] Start: 12-12-1989 HEPATITIS C SCREENING HEPATITIS C SC REENING [facility] Start: 12-12-1989 HIV SCREENING HIV SCREENING [facility] Start: 12-12-1989 SPIROMETRY SPIROMETRY [facility] Start: 1983 Adult depression scr eening assessment DEPRESSION SCREENING [facility] Start: 12-12-1977 PNEUMOCOCCAL (1 - PCV) PNEUMOCOCCAL (1 - PCV) [facility] Start: 1971 HEPATITIS B (1 of 3 - 3-dose series) HEPATITIS B (1 of 3 - 3-dose series) [facility] Immunizations Immunization Date Immunization Notes Care Provider Fa ruben 03-11-2023 influenza virus vaccine, unspecified formulation Morena Rousseau [facility] 03-12-2022 influenza virus vaccine, unspecified formulation [facility] 07-16-2021 SARS-CoV-2 mRNA (wpstwdvvbda-wdik-ymoxh se) vaccine Parker [employer] [facility] [place] 04-03-2021 influenza virus vaccine, unspecified formulation Levon Webber [facility] 09-08-2020 SARS-CoV-2 (COVID-19 ) mRNA BNT-162b2 vax Levon Webber [facility] 08-18-2020 SARS-CoV-2 (COVID-19 ) mRNA BNT-162b2 [facility] 03-07-2019 influenza virus vaccine, unspecified formulation Levon Amayajose [facility] Payers Date Payer Category Payer Unknown [id number] 2011 Unknown [id number] 2011 Unknown [id number] 1971 Unknown [id number] 2.16.8 [id number]. 1971 Unknown [id number] 2.16.8 40.1.235207.3.579.2. 1971 Unknown [id number] 2.16.8 40.1.541809.3.579.2. 1971 Unknown [id number] 2.16.8 40.1.925175.3.579.2. 1971 Unknown [id number] 2.16.8 40.1.845566.3.579.2. 1971 Unknown [id number] 2.16.8 40.1.138727.3.579.2. 1971 Unknown [id number] 2.16.8 40.1.874507.3.579.2. 1971 Unknown [id number] 2.16.8 40.1.428594.3.579.2. 1971 Unknown [id number] 2.16.8 40.1.371184.3.579.2. 1971 Unknown [id number] 2.16.8 40.1.513822.3.579.2.727 1971 Unknown [id number] 2.16.8 40.1.150868.3.579.2.727 1971 Unknown [id number] 2.16.8 40.1.278405.3.579.2.727 1971 Unknown [id number] 2.16.8 40.1.506008.3.579.2.727 1971 Unknown [id number] 2.16.8 40.1.299260.3.579.2.727 Social History Date Type Detail Facility Start: 11-06-2021 End: 06-27-2023 Tobacco smoking status Never smoked tobacco (finding) [facility] Comment on above: Denies Tobacco smoking status Never [facility] Comment on above: Denies Sex Assigned At Female [facility] Start: 11-19-2011 Tobacco use and exposure Smokeless tobacco non-user [facility] Start: 12-20-2020 End: 12-25-2022 Alcohol intake Current drinker of alcohol (finding) [facility] Start: 11-30-2020 History SDOH Alcohol Comment social-weekends [facility] Start: 1971 Sex Assigned At Not on file [facility] Start: 02-12-2022 End: 02-22-2022 Exposure to SARS-CoV-2 (event) Not sure [facility] Medical Equipment Procedure Code Equipment Code Equipment Origin al Text Equipment Identifier Dates Fidencio Bn Smplx Hv Gentamicin Fd - [id number] Start: 11-18-2016 Cement Simplex P Tobramycin Bone Full Dose Radiopaque Preblend Sterile - [id number] Start: 12-20-2020 Surface 6-9 Cd Vivacit-E 11mm Articular Knee - [id number] Start: 11-18-2016 Extension Triath luisana 25mm Stem Total Stabilize Knee Femur - [id number] Start: 12-20-2020 Baseplate Person a 5d D Tivanium Tibial Cemented Stem Knee Left - [id number] Start: 11-18-2016 Restrictor Gregory rsal Cement Disposable Publications Manager - [id number] Start: 12-20-2020 Functional Status Date Assessment Result Facility 06-27-2023 Functional Status N/A [facility] 06-26-2023 Functional Status N/A [facility] 03-05-2023 Functional Status N/A [facility] 02-05-2023 Functional Status N/A [facility] 12-18-2022 Functional Status N/A [facility] 10-25-2022 Functional Status N/A [facility] 08-08-2022 Functional Status No [facility] 05-16-2022 Functional Status No [facility] Clinical Notes 11-18-2016 to 06-27-2023 Note Date [...] are safe for you. General instructions Take rved-kjf-lewwfuy and prescription medicines only as told by [...] provider. Document Revised: 10/11/2020 Document Reviewed: 12/21/2019 [place] Patient Education 2022 [employer]. 06/27/2023 12:02:19 Cough, Adult Cough, Adult Coughing [...] Follow these instructions at home: Medicines Take pmor-pte-svjryru and prescription medicines only as told by [...] of a condition that needs treatment. Take zpxs-rxt-uphwdkf and prescription medicines only as told by [...] provider. Document Revised: 07/12/2019 Document Reviewed: 07/12/2019 [place] Patient Education 2022 [employer]. [facility] [place] 06-26-2023 Hospital Discharge instructions Patient Education 06/26/2023 [...] more information National Heart, Lung, and Blood [place]: www.nhlbi.nih.gov Swiss Heart Association: www.heart.org Contact a health care [...] provider. Document Revised: 03/07/2022 Document Reviewed: 03/07/2022 [place] Patient Education 2022 [employer]. 06/26/2023 20:53:28 Migraine Headache Migraine Headache A [...] Follow these instructions at home: Medicines Take gknq-ixh-eowxhhl and prescription medicines only as told by your health care provider. Ask your health care provider if the medicine prescribed to you: ?Requires you to avoid driving or using heavy machinery. ?Can cause constipation. You may need to take these actions to prevent or treat constipation: ?Drink enough fluid to keep your urine pale yellow. ?Take ysvr-tic-qeuvgto or prescription medicines. ?Eat foods that are [...] provider. Document Revised: 10/15/2019 Document Reviewed: 08/05/2019 [place] Patient Education 2022 [employer]. Follow Up Care 06/26/2023 18:32:26 With:Pb BAUMAN Address: [address] [facility] [place] [address] [phone] Business (1) When:06/29/2023 20:47:03 Comments:Follow-up with your primary care provider in 3 to 5 days. If symptoms worsen, do not improve, or new symptoms arise please report back to emergency department for further evaluation. Continue to monitor your blood pressure, and you may start 20 mg of lisinopril daily. [facility] 03-05-2023 Hospital Discharge instructions Patient Education 03/05/2023 [...] overweight. Not getting enough exercise. Smoking. Taking ffus-bkm-yhkbadj pain medicines, like aspirin and ibuprofen. Having [...] Follow these instructions at home: Medicines Take zkxr-bjj-ueevumg and prescription medicines only as told by your health care provider. If told by your health care provider, take a fiber supplement or probiotic. Constipation prevention Your condition may cause constipation. To prevent or treat constipation, you may need to: Drink enough fluid to keep your urine pale yellow. Take cfbj-tmg-igzwfly or prescription medicines. Eat foods that are [...] provider. Document Revised: 01/20/2020 Document Reviewed: 01/20/2020 [place] Patient Education 2022 [employer]. 03/05/2023 15:03:18 Peptic Ulcer Peptic Ulcer A [...] quitting, ask your health care provider. Take mnhy-cnp-qjtzonk and prescription medicines only as told by your health care provider. ?Do not use fnqk-njw-njxvlcd medicines in place of prescription medicines unless [...] quitting, ask your health care provider. Take cpks-dzq-rulojuv and prescription medicines only as told by your health care provider. Do not use rjrh-zwd-vafbhup medicines in place of prescription medicines unless your health care provider approves. Limit your alcohol and caffeine intake. Keep all follow-up visits. This is important. This information is not intended to replace advice given to you by your health care provider. Make sure you discuss any questions you have with your health care provider. Document Revised: 02/01/2022 Document Reviewed: 02/01/2022 [place] Patient Education 2022 [employer]. Follow Up Care 02/19/2023 08:31:55 With:Morena Rousseau CNP Address: When:3 months [facility] 02-06-2023 Note [id number]:127 [facility] 02-05-2023 Hospital Discharge instructions Patient Education [...] what activities are safe for you. Take grlg-qvv-aavucaz and prescription medicines only as told by [...] provider. Document Revised: 04/28/2020 Document Reviewed: 11/23/2018 [place] Patient Education 2022 [employer]. 02/05/2023 13:36:26 Colonoscopy, Care After Surgery Salam [...] unsweetened, w/added ascorbic acid 1 cup 0.5 [place] 1 cup 0.7 Vegetables Cooked Green beans 1 cup 4.0 Carrots 1/2 cup sliced 2.3 Peas 1 cup 8.8 Potato (baked, with skin) 1 medium potato 3.8 Raw Garnett (with peel) 1 cucumber 1.5 Lettuce 1 [...] 8.7 Peanuts 1/2 cup 7.9 Chart from [facility] 2013. SEEK IMMEDIATE MEDICAL CARE [...] Available at http://www.nal.usda.gov/fnic/food comp/search/. Information adapted from: [facility] Patient Information 2009 [employer]. [employer] 2012 http://www.TUNJI/contents/ pvruwaqlftzg-wxdoojr-yzgkwc-the-b asics 02/05/2023 13:36:13 Esophageal Dilatation Esophageal Dilatation [...] including vitamins, herbs, eye drops, creams, and huup-jya-kjlxefe medicines. Any problems you or family members [...] provider tells you to take them. ?Taking xxay-iej-yqkalbr medicines, vitamins, herbs, and supplements. Follow instructions [...] home. Follow these instructions at home: Take opfe-ejr-qnrnwuu and prescription medicines only as told by [...] provider. Document Revised: 11/08/2020 Document Reviewed: 11/08/2020 [place] Patient Education 2022 [employer]. Follow Up Care 12/18/2022 09:52:48 With:OMAR CROCKER, LAINEY Parker, [facility] Address: [address] [place] [address]. [address] [place] [address] When: Unknown Comments:Call for any problems. Office will call to schedule follow up appointment [facility] 02-05-2023 Evaluation + Plan note Extrac mariposa from: Title:ANES Post General Author:Frank Adams DO. Date:02/05/23 Plan Transfer/Discharge: Patient exhibiting no signs of N/V. Hydration status is adequate. Extracted from: Title:Bryan Basic PRE Author:Ronny Adams DO. Date:02/05/23 Plan [employer] Society of Anesthesiologists (ASA) physical status classification: Class II. Anesthetic Preoperative Plan: Anesthesia General. [facility]06-21-2023 NoteHNO ID: [id number] Author: Marko Cordova PA-C Service: ? Author Type: Physician Statistical Assistant Type: Progress Notes Filed: 12/25/2022 12:05 PM [...] to aseptic loosening on 12/20/[address] Mereidth. No complaints with her left knee. Complaining [...] knee joint Informed Consent Consent Obtained: Verbal [place] Protocol A moment to CARE was completed. [...] Greater (Aleve) Physical The (more content not included)...[facility]06-21-2023 NoteHNO ID: [id number] Author: Katiuska Marina RT(R) Service: ? Author [...] BY: RT Lizbeth(R) December 25, 2022 10:24 [facility]06-21-2023 History of Present illness Narrative* Marko JOEY Cordova - 12/25/2022 10:35 AM EDTAssociated Order(s): Large [...] knee joint Informed Consent Consent Obtained: Verbal [place] Protocol A moment to CARE was completed. [...] [facility] Note [id number]:127[facility] 09-02-2022 Hospital Discharge instructions Patient Education [...] concerns, call to speak with your doctor. [facility]: [phone]. Follow Up Care 08/13/2022 15:47:23 With:Rita Dover Address: [address] [place], [place] [id number] Business (1) When:09/30/2022 10:30:00 Comments:Keep scheduled appointment [facility]08-19-2022 NoteHNO ID: [id number] Author: Augustus Pereira MD Service: ? Author [...] Recommend conservative treatment with activity modification, ice, wmow-wqv-euclqbu NSAID. If this becomes more significant she will return for follow-up Follow-up as symptoms dictate Augustus Pereira [facility]08-19-2022 NoteHNO ID: [id number] Author: Margi Moore RT(R) Service: ? Author Type: Technologist Type: Progress Notes Filed: 02/22/2022 2:30 PM Note Text: Radiology Service Progress Note PATIENT NAME: Jessenia Wing DATE OF SERVICE: February 22, 2022 TIME: [...] Margi Moore, RT(R) February 22, 2022 2:30 [facility]05-03-2022 Evaluation + Plan note Future Scheduled Tests Laboratory* CBC w/ Indices 11/06/21 [facility] 05-03-2022 Hospital Discharge instructions Follow Up Care 11/06/2021 11:33:21 With:Akbar GARCES, DEJUAN Philip, PED Address: [address] [place] [id number] [phone] When:1 month only if needed [facility] 06-17-2021 NoteHNO ID: [id number] Author: Stanley Bunch PA-C Service: Orthopaedic Surgery Author Type: Physician Statistical Assistant Type: Progress Notes Filed: 12/21/2020 9:30 AM [...] 1707 -- 12/21/20 0000 graduated compression stockings ([place], [place]) 12/20/20 1715 graduated compression stockings ([place] 12/20/20 1715 activity - mobilize patient ([place] VTE Prophylaxis: VTE prophylaxis appropriate POST OPERATIVE COMPLICATIONS: Complicated by: uneventful/none SIGNATURE: Stanley Bunch PA-C PATIENT NAME: Jessenia Wing DATE: 12/21/2020 TIME: 9:30 AM PAGER/CONTACT #: [phone] [id number] NoteHNO ID: [id number] Author: Zeke Prajapati II, DO Service: Anesthesiology [...] December 20, 2020 TIME: 12:30 PM CSN: [id number] NoteHNO ID: [id number] Author: Zeke Prajapati II, DO Service: Anesthesiology [...] December 20, 2020 TIME: 12:02 PM CSN: [id number] Evaluation + Plan note Future Appointments Appointment Date:07/18/2023 08:00:00 AM Scheduled Provider: Location:[facility] Appointment Type:CV Echo ([facility]) Appointment Date:08/05/2023 01:00:00 PM Scheduled Provider:Eyad ARORA MD Location:[facility] Appointment Type:Cardiology New Patient ([facility]) Future Scheduled Tests Radiology* Echo w/ Saline Bubbles 07/18/23 [facility] 05-15-2017 History of Past illness Narrative* Problem Noted Date Resolved Date S/P left unicompartmental knee replacement 11/1803/18/2017 documented as of this encounter (statuses as of 02/22/2022) [facility]2017 History of Past illness Narrative* Problem Noted Date Resolved Date S/P left unicompartmental knee replacement 11/1803/18/2017 documented as of this encounter (statuses as of 12/25/2022) [facility] Future Appointments Appointment Date:05/29/2022 09:45:00 AM Scheduled Provider:Jerel Banks DPM [facility] Appointment Type:WC Follow Up Visit (FT) Future Scheduled Tests Radiology* US LE Venous Duplex Insufficiency Bilat [facility] Future App[facility]ments Appointment Date:06/10/2022 03:00:00 PM Scheduled Provider: Location[facility] Appointment Type:US Duplex Procedures (FT) Future Scheduled Tests Radiology* US LE Venous Duplex Insufficiency Bilat [facility]10[facility] Future Appointments Appointment Date:09/30/2022 10:30:00 AM Scheduled Provider:Rita Dover MD [facility] Appointment Type:[facility] (FT[facility] Future Appointments Appointment Date:10/31/2022 03:30:00 PM Scheduled Provider:Rita Dover MD [facility] Appointment Type:Vascular Follow Up (FT) Appointment Date:11/22/2022 04:20:00 PM Scheduled Provider:ANA CHÁVEZ CNP Location:[facility] Appointment Type:FM Open [facility] Evaluation + Plan note Future Appointments Appointment Date:02/05/2023 12:50:00 PM Scheduled Provider: Location:[facility] Appointment Type:Surgery FT [facility] Evaluation + Plan note Future Appointments Appointment Date:06/05/2023 03:20:00 PM Scheduled Provider:Morena Rousseau CNP Location:[facility] Appointment Type:BADH Follow Up [facility] Evaluation + Plan note Future Appointments Appointment Date:08/05/2023 01:00:00 PM Scheduled Provider:Eyad ARORA MD [facility] App[facility]ment Type:Cardiology [facility] (FT) [facility] Diagnosis S/P revision of total knee, left- Primary [facility] in this [facility] Diagnosis S/P revision of total knee, left- Primary Primary osteoarthritis of right knee Primary localized osteoarthrosis, lower leg documented in this [facility] Narrative No data available for this section [facility] Discharge instructions No data available for this section [facility] No data available for this section [facility])* Diagnostic Procedure Only (Routine) - Closed Specialty Diagnoses / Procedures Referred By Mandeep sellers Referred To Contact XR IMAGING Diagnoses S/P revision of total knee, left Procedures XR KNEE POST OP 3V AP/LAT/MERCHANT LEFT RADIOLOGIC EXAMINATION KNEE 3 VIEWS Augustus Pereira MD [address] [place] [address] Xr Imaging Referral ID Status Reason Start Date Expiration Date V isits Requested Visits Authorized [id number] Closed Auto-Generate d Referral 02/22/2022 03/24/2023 1 1 [facility] Summary Purpose Family History No Family History [...] Referral Specialty Diagnoses / Procedures Referred By Contac t Referred To Contact [facility] Diagnoses Primary osteoarthritis of right knee Procedures CONSULT TO PHYSICAL THERAPY PHYSICAL THERAPY EVALUATION HIGH COMPLEX 45 MINS Marko Cordova PA-C [address] [place] [address] [facility] [place] [address] Referral ID Status Reason Start Date Expiration Date Visits Requested Visits Authorized [id number] Pending Review Auto-Generat ed Referral 12/25/2022 12/25/2023 [...] section and content) DATE CREATED AUTHOR 01/05/2021 [facility] DATE CREATED AUTHOR AUTHOR'S ORGANIZ ATION 12/26/2022 [facility] DATE CREATED AUTHOR AUTHOR'S ORGANIZ ATION 06/28/2023 [facility] Comments (unrecognize d section and content) In the event this informatio n is protected by the Federal Confidentiality of Alcohol and Drug Abuse Patient Records regulations: The Federal rules restrict any use of the information to criminally investigate or prosecute any alcohol or drug abuse patient.[facility] the event this information is protected by the Federal Confidentiality of Alcohol and Drug Abuse Patient Records regulations: The Federal rules restrict any use of the information to criminally investigate or prosecute any alcohol or drug abuse patient.[facility] Patient Care team informatio n (unrecognized section and content) Personnel Name: Pb BAUMAN DO Address: Address: [address] [place], [place] [id number] Personnel Name: Pb BAUMAN DO Address: Address: [address] [place], [place] [id number] Personnel Name: Pb BAUMAN DO Address: Address: [address] [place], [place] [id number] Personnel Name: Pb BAUMAN DO Address: Address: [address] [place] [id number] Personnel Name: Pb BAUMAN DO Address: Address: [address] [place] [id number] Personnel Name: Pb BAUMAN DO Address: Address: [address] [place] [id number] Personnel Name: Pb BAUMAN DO Address: Address: [address] [place] [address] Personnel Name: Pb BAUMAN DO Address: Address: [address] [place] [address] [place] Personnel Name: Pb BAUMAN DO Address: Address: [address] [facility] [place] [address]- [place] Personnel Name: Pb BAUMAN DO Address: Address: [address] [place] [address]- [place] Personnel Name: Pb BAUMAN DO Address: Address: [address] [place] [address]- [place] Personnel Name: Pb BAUMAN DO Address: Address: [address] [place] [address]- [place] Personnel Name: DIANA MOYER Address: Address: [address] [place] [address]- Personnel Name: DIANA MOYER Address: Address: [address] [place] [address]- Reason for Visit (unrecogniz ed section and [...] BE BASED ON THE PRIMARY CLINICAL RECORDS. [employer] [facility]. provides no warranty or guarantee of the accuracy or completeness of information in this document.
== END 2023-10-10 07:52 | disposition home or self-care (01) ==
LOC: VC 07:57
PROVIDERS: PCP Radiology Diagnostic Radiology; Visit Provider Radiology Diagnostic Radiology
DX: I80.01 Phlebitis and thrombophlebitis of superficial vessels of right lower extremity (principal)
CPT/HCPCS: 93971; G0463

== ENCOUNTER 2023-10-20 14:29 | Outpatient (OUT) | payer OTHER, BC, SELFPAY ==
--- NOTE | 2023-10-20 14:46 | VEIN_ITS ---
[address] [address] Patient Name: LOREN WING MRN: [id number] date: 1970 Sex: F Assigned Patient Location: Current Patient Location: Accession/Order Number: [id number] Exam Date: 10/20/2023 14:40 Report Date: 10/20/2023 15:33 At the request of: PREMA HAWKINS Procedure: VC INJ Foam Sclerosant WUS PLUMBING ENGINEER PROCEDURE: VC INJ Foam Sclerosant WUS PLUMBING ENGINEER COMPARISON: None. HISTORY: Pain due to varicose veins of bilateral legs I83.813 Pre-operative Diagnosis: CEAP class C6 venous insufficiency with pain, tenderness, edema and incompetent left saphenous] vein(s), chronic venous insufficiency left leg secondary to venous incompetence Post-operative Diagnosis: CEAP class C6 venous insufficiency with pain, tenderness, edema and incompetent left saphenous] vein(s), chronic venous insufficiency left leg secondary to venous incompetence Procedure Performed: 1. Ultrasound-guided microfoam chemical ablation with Varithenaregistered 2. Intraoperative ultrasound guidance Anesthesia: None Indications for Procedure: 52-year-old female who presents with a long history of lower extremity pain and swelling culminating in venous stasis ulcerations. The patient failed conservative medical therapy including medical compression stockings, exercise and analgesics. Prior procedures include intravenous laser ablation. Multiple incompetent varicosities of the left leg. Duplex scan showed reflux and enlarged diameters up to 5 mm. The patient underwent informed consent including management options where the complications of infection, bleeding, pain, and skin injury were discussed. Particular attention was spent discussing thrombus extension and deep vein thrombosis as well as the possibility of pulmonary embolus and treatment with oral or injectable blood thinners. Procedure: The patient walked to the procedure room. All applicable staff donned appropriate apparel. A procedure timeout was performed to confirm correct patient, correct extremity, correct procedure, and correct room set-up including presence of all applicable supplies, devices, and drugs. A duplex ultrasound, performed by myself confirmed the location and incompetence of branch saphenous varicosities and their course was marked on the skin together with the dilated tributaries. The extent of treatment of the vein and the associated varicosities was determined through ultrasound mapping. The skin was prepped and then punctured with a butterfly needle and advanced under ultrasound guidance. The Varithenaregistered canister was activated and the canister was primed and purged as required in the instructions for use. Varithenaregistered was drawn into a sterile syringe. The following injections were made: 8 cc injected into a distal incompetent patent left great saphenous vein measured 5 mm. Pressure was held on the perforating vein to prevent injury and deep vein thrombus 7 cc injected into a 4 mm varicose vein left proximal medial lower leg Varithenaregistered was slowly administered at 0.5-1.0 cc/second with close observation by ultrasound of its course in the vessels. Total volume utilized was: 15cc. Following administration of Varithenaregistered the leg was elevated and the patient was asked to repeatedly dorsiflex the ankle to limit flow of Varithenaregistered into perforating veins. Once appropriate spasm had been confirmed in the treated veins, the vascular catheter was removed from the leg and light pressure was applied over the puncture site for hemostasis. The common femoral and deep superficial veins were then evaluated for flow and compressibility prior to dressing placement. The lower extremity was kept elevated at 45 degrees above the horizontal and cording material was applied over the saphenous segments and tributaries to allow for eccentric compression over the target vessels including the targeted saphenous vein(s). A multilayer dressing was applied consisting of foam pads, coban and thigh-high 20-30 mm Hg compression elastic support hose were placed on the patient. The leg was lowered only after compression had been applied and the patient was immediately ambulatory. The patient ambulated 10 minutes under supervision and was without apparent concerns at time of release. Post-care instructions include advising patient to keep post-treatment bandages in place and dry for 48 hours, avoid extended periods of inactivity, avoid heavy exercise for one week, wear compression stockings on the treated leg continuously for two weeks, to walk daily for 10 minutes over the next month. The patient was instructed to take an anti-inflammatory medicine as needed and to follow up for color duplex scan of the Saphenous veins, the treated branch saphenous varicosities, the adjacent deep veins, and additional treatment within 7 days. PERSONNEL: Cara Rodriguez Electronically authenticated by: PREMA HAWKINS Date: 10/20/2023 15:33
== END 2023-10-20 14:30 | disposition home or self-care (01) ==
LOC: VC 14:43
PROVIDERS: PCP Radiology Diagnostic Radiology; Visit Provider Radiology Diagnostic Radiology
DX: I83.813 Varicose veins of bilateral lower extremities with pain (principal)
CPT/HCPCS: 36466

== ENCOUNTER 2023-10-23 14:56 | Outpatient (OUT) | payer OTHER, BC, SELFPAY ==
--- NOTE | 2023-10-23 14:59 | VEIN_ITS ---
Patient Name: LOREN WING MR#: [id number] : 1970 Exam Date: 10/23/2023 Ordering Doctor: DR PREMA HAWKINS M.D. RADIOLOGY REPORT PROCEDURE: [facility] EST [facility] - OFFICE VISIT FOLLOW UP [facility] PROGRESS NOTES: The patient reports improvement in leg symptoms. There has been interval reduction in varicosities. The patient has followed our recommendations to walk 20-30 minutes once or twice per day since the procedure. Patient describes tenderness medial aspect of distal lower left leg. Physical exam demonstrates decrease in varicosities of the leg. No remaining varicosities are identified along the legs. Mild edema within medial aspect of distal lower leg; no erythema or infection. Patient's place tenderness during palpation. No appreciable lump. Review of the ultrasound performed the same day demonstrates occlusive thrombus extending throughout the treated vein(s), see separate report, consistent with a successful ablation. No thrombus extending into or beyond the saphenofemoral junction. No deep vein thrombus with specific attention to the distal lower left extremity in area of tenderness. Patient has completed course of treatment with no additional veins in need of treatment at this time. Patient will follow-up in future as needed. If lower left leg tenderness does not resolve or improve within 1 week patient will return for additional ultrasound evaluation. VEIN/[facility] EST LMTD IMPRESSION: 1. Successful ablation of the remaining branch saphenous varicosities. 2. Medial lower left leg tenderness; likely mild superficial phlebitis. Patient will take [id number] medication as needed for tenderness and follow-up for additional ultrasound evaluation in 1 week if symptoms do not improve. Nurse notes, history and physical were reviewed and confirmed, see attached forms. The nurse was present throughout the physical exam and consultation Dictated by: Neftali Romo M.D. on 10/23/2023 at 16:07 Approved by: Neftali Romo M.D. on 10/23/2023 at 16:11
--- NOTE | 2023-10-23 15:00 | VEIN_ITS ---
Patient Name: LOREN WING MR#: [id number] : 1970 Exam Date: 10/23/2023 Ordering Doctor: DR PREMA HAWKINS M.D. RADIOLOGY REPORT PROCEDURE: VC EXT VENOUS LT LIMITED COMPARISON: None. INDICATIONS: Phlebitis of superficial veins of lt lower extremity I80.02 TECHNIQUE: Lower extremity berry scale and Duplex Doppler evaluation of the deep venous system from the inguinal ligament through the calf veins. FINDINGS: REGION: Left lower extremity. THROMBI: Negative for DVT. 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 COMPRESSIBILITY: Non-compressible segments corresponding to thrombus FLOW: Areas of no flow corresponding to thrombus OTHER: No remaining varicose veins. CONCLUSION: 1. 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 Dictated by: Neftali Romo M.D. on 10/23/2023 at 16:05 Approved by: Neftali Romo M.D. on 10/23/2023 at 16:07
== END 2023-10-23 14:57 | disposition home or self-care (01) ==
LOC: VC 14:56
PROVIDERS: PCP Radiology Diagnostic Radiology; Visit Provider Radiology Diagnostic Radiology
DX: I80.02 Phlebitis and thrombophlebitis of superficial vessels of left lower extremity (principal)
CPT/HCPCS: 93971; G0463